=== PATIENT | female | born 1940 | race Native Hawaiian/Other Pacific Islander ===

== ENCOUNTER 2017-02-05 15:50 | Inpatient (IN) | payer MEDICARE, OTHER ==
[2017-02-05] MEDS ORDERED: Sodium Chloride 0.9% 1,000 ML IV ONE (16:54)
[2017-02-05] MEDS ORDERED: Sodium Chloride 0.9% 1,000 ML ONE (17:14)
[2017-02-05 17:25] LABS: CHLORIDE 88 mmol/L (98-107); POTASSIUM 3.5 mmol/L (3.6-5.2); SODIUM 127 mmol/L (132-148)
[2017-02-05 17:27] LABS: ALB/GLOB RATIO 1.3 (1.0-2.1); AST/SGOT 32 U/L (14-36); BILIRUBIN,TOTAL 0.8 mg/dL (0.2-1.3); CARBON DIOXIDE 21 mmol/L (22-30); GFR AFRICAN-AMERICAN > 60; TOTAL PROTEIN 7.9 g/dL (6.3-8.3)
[2017-02-05 17:28] LABS: ALKALINE PHOSPHATASE 65 U/L (38-126); ALT/SGPT 36 U/L (9-52); BLOOD UREA NITROGEN 9 mg/dL (7-17); CALCIUM 8.8 mg/dl (8.6-10.4); GLUCOSE,RANDOM 194 mg/dL (65-105)
[2017-02-05 17:33] LABS: BASO % 0.1 % (0.0-2.0); EOS # 0.2 K/uL (0.0-0.7); EOS % 1.9 % (0.0-4.0); HEMATOCRIT 28.5 % (34.0-47.0); LYMPH # 0.6 K/uL (1.0-4.3); LYMPH % 6.2 % (20.0-40.0); MEAN CELL VOLUME 73.8 fL (81.0-99.0); MEAN CORPUSCULAR HEMOGLOBIN 24.1 pg (27.0-31.0); MEAN CORPUSCULAR HGB CONC 32.6 g/dL (33.0-37.0); MONO # 0.1 K/uL (0.0-0.8); MONO % 1.2 % (0.0-10.0); NRBC % 0.8 % (0.0-2.0); RED CELL DISTRIBUTION WIDTH 28.1 % (11.5-14.5)
[2017-02-05 17:44] LABS: RBC URINE 1 /hpf (0-3); URINE BILIRUBIN NEGATIVE (NEGATIVE); URINE BLOOD NEGATIVE (NEGATIVE); URINE COLOR Yellow (YELLOW); URINE GLUCOSE (UA) 3+ mg/dL (Normal); URINE KETONE NEGATIVE (NEGATIVE); URINE LEUKOCYTE ESTERASE NEG Leu/uL (Negative); URINE PROTEIN NEGATIVE (NEGATIVE); URINE UROBILINOGEN NORMAL mg/dL (0.2-1.0); WBC URINE 1 /hpf (0-5)
[2017-02-05 17:47] LABS: PLATELET COUNT 913 K/uL (130-400)
--- NOTE | 2017-02-05 17:53 | C.PDOC ---
History Of Present Illness 76 y/o female wit Hx of HTN and Thyroid disease brought to ED by daughter sent by Dr. Marie with complaints of epigastric, RUQ and LUQ pain radiating to back since Friday. Patient states pain was intermittent but has progressively became constant associated with nausea and vomiting today. Patient reports pain is worse when eating and she has decreased appetite, last bowel movement was 2 days ago secondary to patient not eating solid food. No other complaints at this time. Time Seen by Provider: 02/05/17 16:45 Chief Complaint (Nursing): Abdominal Pain History Per: Patient History/Exam Limitations: no limitations Onset/Duration Of Symptoms: Days Current Symptoms Are (Timing): Still Present Location Of Pain/Discomfort: RLQ, Epigastric, LUQ Radiation Of Pain To:: Back Past Medical History Reviewed: Historical Data, Nursing Documentation, Vital Signs Vital Signs: Last Vital Signs Temp 99.8 F H 02/05/17 22:32 Pulse 73 02/05/17 22:32 Resp 20 02/05/17 22:32 BP 136/53 L 02/05/17 22:32 Pulse Ox 97 02/05/17 22:32 - Medical History PMH: Gastritis, HTN, Hypercholesterolemia, Hyperthyroidism Surgical History: No Surg Hx Family History: States: No Known Family Hx - Social History Hx Alcohol Use: No Hx Substance Use: No - Immunization History Hx Tetanus Toxoid Vaccination: No Hx Influenza Vaccination: No Hx Pneumococcal Vaccination: No Review Of Systems Except As Marked, All Systems Reviewed And Found Negative. Constitutional: Negative for: Fever, Chills Gastrointestinal: Positive for: Nausea, Vomiting, Abdominal Pain. Negative for : Diarrhea, Constipation Genitourinary: Negative for: Dysuria, Hematuria Musculoskeletal: Positive for: Back Pain Skin: Negative for: Rash Neurological: Negative for: Weakness, Numbness Physical Exam - Physical Exam Appears: Non-toxic, Other (Uncomfortable) Skin: Normal Color, Warm, Dry, No Rash Head: Atraumatic, Normacephalic Oral Mucosa: Moist Neck: Normal ROM, Supple Chest: Symmetrical Cardiovascular: Rhythm Regular, No Murmur Respiratory: No Rales, Rhonchi (left base), No Wheezing Gastrointestinal/Abdominal: Bowel Sounds (Quiet diffusely), Soft, Tenderness ( LUQ and epigastric), Distention, Guarding Back: No CVA Tenderness, No Paraspinal Tenderness Extremity: Normal ROM, No Pedal Edema Neurological/Psych: Oriented x3 ED Course And Treatment - Laboratory Results Result Diagrams: 02/05/17 17:11 02/05/17 17:11 Lab Interpretation: Abnormal (Mild anemia, Na 127, Cl 88, K 3.5, HCO3 21, Lipase 22) O2 Sat by Pulse Oximetry: 99 (RA) Pulse Ox Interpretation: Normal - Other Rad Obstructive series X-Ray: Interpreted by Me Interpretation: Increased stool volume, No evidence of obstruction or free air, CXR unremarkable. - CT Scan/US CT Abdomen and Pelvis With Intravenous Contrast Other Rad Studies (CT/US): Read By Radiologist, Radiology Report Reviewed CT/US Interpretation: FINDINGS: Lower thorax: Subsegmental atelectasis is noted at the right lung base. Contrast air level noted. within the distal and midesophagus suggests gastroesophageal reflux. There is a small hiatal hernia. 2. Liver cysts. 3. Subsegmental atelectasis noted at the right lung base. 4. Air-contrast level within the distal esophagus suggest gastroesophageal reflux disease. There is a. small hiatal hernia. ABDOMEN: Liver: As the 9 mm cyst beneath the liver capsule anteriorly and inferiorly. There is a 9 mm cyst. beneath the liver capsule posteriorly and inferiorly. Gallbladder and bile ducts: Unremarkable. No calcified stones. No ductal dilation. Pancreas: Unremarkable. No mass. No ductal dilation. Spleen: Unremarkable. No splenomegaly. Adrenals: The hazy inflammatory changes are noted within the suprarenal fat bilaterally appearing to. be centered on the adrenal glands. Kidneys and ureters: Unremarkable. No solid mass. No hydronephrosis. Stomach and bowel: Unremarkable. No obstruction. No mucosal thickening. Appendix: No findings to suggest acute appendicitis. PELVIS: Bladder: Unremarkable. No mass. Reproductive: Unremarkable as visualized. ABDOMEN and PELVIS: Intraperitoneal space: Unremarkable. No free air. No significant fluid collection. Bones/joints: There is a levoscoliosis of the lumbar spine with moderately advanced secondary. degenerative changes. Multilevel foraminal stenosis is noted in the upper and mid lumbar spine. No. acute fracture. No dislocation. Soft tissues: Unremarkable. Vasculature: Unremarkable. No abdominal aortic aneurysm. Lymph nodes: Unremarkable. No enlarged lymph nodes. IMPRESSION: 1. Inflammatory changes are noted surrounding the adrenal glands bilaterally suggest bilateral. adrenalitis. This can be infectious or autoimmune. Inflammatory changes related to pancreatitis can. occasionally extend into the suprarenal space. Clinical correlation suggested. - Physician Consult Information Time Consulting Physician Contacted: 21:45 Physician Contacted: Víctor Marie Outcome Of Conversation: Patient to be kept on observation for evaluation of adrenal inflammation. Disposition - Disposition Disposition: HOSPITALIZED Disposition Time: 21:46 Condition: STABLE - POA Present On Arrival: None - Clinical Impression Clinical Impression: Adrenalitis - Scribe Statement The provider has reviewed the documentation as recorded by the Venita Weiss All medical record entries made by the Venita were at my direction and personally dictated by me. I have reviewed the chart and agree that the record accurately reflects my personal performance of the history, physical exam, medical decision making, and the department course for this patient. I have also personally directed, reviewed, and agree with the discharge instructions and disposition.
[2017-02-05] MEDS ORDERED: Iohexol 240 (50 ml) PO ONE (18:19)
--- NOTE | 2017-02-05 18:35 | RAD ---
PROCEDURE: Radiographs of the chest and abdomen (obstructive series) HISTORY: Abdominal pain. COMPARISON: No prior. TECHNIQUE: AP radiograph of the chest, with upright and supine radiographs of the abdomen. FINDINGS: CHEST: Lungs: Clear. Cardiovascular: Cardiomegaly. No evidence of acute, significant cardiovascular disease. Pleura: No pleural fluid. No pneumothorax. Other findings: None. ABDOMEN AND PELVIS: Bowel: Constipation without fecal impaction or obstruction. Free air: None. Bones: Scoliosis, secondary degenerative change at multiple levels. Other findings: None. IMPRESSION: No acute findings related to/accounting for the clinical presentation.
[2017-02-05] MEDS ORDERED: Iohexol 240 (50 ml) ONE (18:56)
[2017-02-05] MEDS ORDERED: Iohexol 350mg/ml 100 ML ONE (19:07)
--- NOTE | 2017-02-05 21:22 | CT ---
EXAM: CT Abdomen and Pelvis With Intravenous Contrast EXAM DATE/TIME: Exam ordered 02/05/2017 6:19 PM CLINICAL HISTORY: 76 years old, female; Pain; Abdominal pain; Generalized TECHNIQUE: Axial computed tomography images of the abdomen and pelvis with intravenous contrast. All CT scans at this facility use one or more dose reduction techniques, viz.: automated exposure control; ma/kV adjustment per patient size (including targeted exams where dose is matched to indication; i.e. head); or iterative reconstruction technique. Coronal and sagittal reformatted images were created and reviewed. CONTRAST: 100 mL of omnipaque 350 administered intravenously. COMPARISON: CT - ABD PELVIS PO IV CONTRAST 11/29/2015 4:02:05 PM FINDINGS: Lower thorax: Subsegmental atelectasis is noted at the right lung base. Contrast air level noted within the distal and midesophagus suggests gastroesophageal reflux. There is a small hiatal hernia. ABDOMEN: Liver: As the 9 mm cyst beneath the liver capsule anteriorly and inferiorly. There is a 9 mm cyst beneath the liver capsule posteriorly and inferiorly. Gallbladder and bile ducts: Unremarkable. No calcified stones. No ductal dilation. Pancreas: Unremarkable. No mass. No ductal dilation. Spleen: Unremarkable. No splenomegaly. Adrenals: The hazy inflammatory changes are noted within the suprarenal fat bilaterally appearing to be centered on the adrenal glands. Kidneys and ureters: Unremarkable. No solid mass. No hydronephrosis. Stomach and bowel: Unremarkable. No obstruction. No mucosal thickening. Appendix: No findings to suggest acute appendicitis. PELVIS: Bladder: Unremarkable. No mass. Reproductive: Unremarkable as visualized. ABDOMEN and PELVIS: Intraperitoneal space: Unremarkable. No free air. No significant fluid collection. Bones/joints: There is a levoscoliosis of the lumbar spine with moderately advanced secondary degenerative changes. Multilevel foraminal stenosis is noted in the upper and mid lumbar spine. No acute fracture. No dislocation. Soft tissues: Unremarkable. Vasculature: Unremarkable. No abdominal aortic aneurysm. Lymph nodes: Unremarkable. No enlarged lymph nodes. IMPRESSION: 1. Inflammatory changes are noted surrounding the adrenal glands bilaterally suggest bilateral adrenalitis. This can be infectious or autoimmune. Inflammatory changes related to pancreatitis can occasionally extend into the suprarenal space. Clinical correlation suggested. 2. Liver cysts. 3. Subsegmental atelectasis noted at the right lung base. 4. Air-contrast level within the distal esophagus suggest gastroesophageal reflux disease. There is a small hiatal hernia.
[2017-02-05] MEDS: Potassium Chloride 20 MEQ in Dextrose 5%/0.9% NS 1,000 ML IV SCH (22:44)
[2017-02-05 23:18] LABS: EOSINOPHIL 2 % (0-4); LARGE PLATELETS PRESENT; NEUTROPHIL 82 % (50-75); SMUDGE CELLS PRESENT; TOTAL CELLS COUNTED 100
--- NOTE | 2017-02-06 00:48 | CON ---
ENDOCRINOLOGY CONSULT DATE: HISTORY OF PRESENT ILLNESS: This is a 76-year-old female with known history of hypertension and dyslipidemia, admitted here with diffuse upper abdominal pain and supervening nausea, dyspepsia, and vomiting and is now being referred for endocrine evaluation for possible "adrenal inflammation" seen by a CAT scan of the abdomen and pelvis undertaken tonight. PAST MEDICAL HISTORY: History of hypertension, dyslipidemia, and history of some kind of thyroid disorder. MEDICATIONS: Currently on no medications at this time. FAMILY HISTORY: Positive for hypertension and heart disease. No known endocrinopathy. SOCIAL HISTORY: The patient has supportive family. No known substance use. REVIEW OF SYSTEMS: As mentioned above. Admits to generalized body weakness with increasing easy fatigability and tiredness with hypersomnolence. No chest pain, but the patient admits to progressive shortness of breath especially on exertion. Her oral intake is variable with nausea, dyspepsia, and diffuse upper abdominal pain radiating to the flank area. No alteration of bowel and urinary pattern. PHYSICAL EXAMINATION: GENERAL: This is an average-built female in no apparent distress. VITAL SIGNS: Blood pressure 140/80, pulse of 100 beats per minute and regular, temperature 98, and respirations 20. Height 5 feet 2 inches and weight is 140 pounds. HEENT: Head is normocephalic. Eyes; anicteric with pale conjunctivae. Funduscopy is not possible at this time. Ears, nose and throat otherwise normal. NECK: Supple. Thyroid gland is normal in size. No carotid bruits or cervical adenopathy. CARDIOPULMONARY: Some adynamic precordium. S1 and S2 is rapid and regular. LUNGS: Scattered rhonchi. ABDOMEN: Flat and soft with positive bowel sounds. EXTREMITIES: No peripheral edema. Pulses are +2 bilaterally. LABORATORY DATA: Her chemistry showed BUN of 9, sodium 127, potassium of 3.5, chloride 88, CO2 21, glucose 194, and creatinine 0.5. ASSESSMENT: This is a 76-year-old female with sudden onset of diffuse abdominal pain and supervening nausea, dyspepsia, and vomiting, now being referred for possible "adrenal inflammation" noted by CAT scan of the abdomen and pelvis as interpreted tonight by the radiologist. Her electrolyte abnormalities are more consistent with dehydration from the recent nausea, dyspepsia, and vomiting episodes as noted. We typically would except moderate hyperkalemia, which hyponatremia in the presence of adrenal insufficiency or hypoadrenalism. However, if it is an acute episode of adrenal insufficiency, we would sometimes present with the aforementioned biochemical indices. She remains hemodynamically stable with no blood pressure stability as noted. The CAT scan of the abdomen and pelvis has been reviewed in detail as noted. PLAN: Plan of management, we will obtain baseline serum cortisol and ACTH level together with the T4 and TSH level for this morning's blood work as ordered. We will hold off empirical IV steroid therapy considering that she is actually hemodynamically stable and this would defeat the purpose of further testing if indicated. We will do an ACTH stimulation test as clinically and biochemically indicated with the subsequent testing to be undertaken today early this morning as ordered. We will continue the IV hydration, potassium supplementation as ordered and given. We will follow. Marely Raymundo MD
[2017-02-06] MEDS: Potassium Chloride 20 MEQ in Dextrose 5%/0.9% NS 1,000 ML IV SCH ×3 (06:35→22:29)
[2017-02-06 06:39] LABS: BASO # 0.1 K/uL (0.0-0.2); EOS # 0.1 K/uL (0.0-0.7); EOS % 0.9 % (0.0-4.0); MEAN CORPUSCULAR HEMOGLOBIN 24.7 pg (27.0-31.0)
[2017-02-06 06:53] LABS: ALB/GLOB RATIO 1.3 (1.0-2.1); ALKALINE PHOSPHATASE 50 U/L (38-126); ALT/SGPT 33 U/L (9-52); AMYLASE 42 U/L (30-110); AST/SGOT 26 U/L (14-36); BILIRUBIN,TOTAL 0.7 mg/dL (0.2-1.3); BLOOD UREA NITROGEN 5 mg/dL (7-17); CALCIUM 8.5 mg/dl (8.6-10.4); CARBON DIOXIDE 24 mmol/L (22-30); CHLORIDE 95 mmol/L (98-107); GFR AFRICAN-AMERICAN > 60; GLUCOSE,RANDOM 136 mg/dL (65-105); POTASSIUM 3.8 mmol/L (3.6-5.2); SODIUM 129 mmol/L (132-148); TOTAL PROTEIN 6.5 g/dL (6.3-8.3)
[2017-02-06 07:04] LABS: BASO % 0.9 % (0.0-2.0); HEMATOCRIT 25.5 % (34.0-47.0); LYMPH % 36.5 % (20.0-40.0); MEAN CELL VOLUME 73.2 fL (81.0-99.0); MEAN CORPUSCULAR HGB CONC 33.8 g/dL (33.0-37.0); MEAN PLATELET VOLUME 8.4 fL (7.2-11.7); MONO # 0.1 K/uL (0.0-0.8); MONO % 0.9 % (0.0-10.0); NRBC % 0.7 % (0.0-2.0); PLATELET COUNT 723 K/uL (130-400); RED CELL DISTRIBUTION WIDTH 28.2 % (11.5-14.5); WHITE BLOOD COUNT 8.3 K/uL (4.8-10.8)
[2017-02-06 07:10] LABS: T4 7.22 ug/dL (5.5-11.0)
[2017-02-06 07:23] LABS: THYROID STIMULATING HORMONE 1.03 mIU/L (0.46-4.68)
[2017-02-06 07:46] LABS: CORTISOL AM 19.1 ug/dL (4.46-22.7)
[2017-02-06 08:44] LABS: EOSINOPHIL 3 % (0-4); MYELOCYTE 2 % (0-0); NEUTROPHIL 73 % (50-75); TOTAL CELLS COUNTED 100
[2017-02-06 08:46] LABS: LARGE PLATELETS PRESENT
[2017-02-06 08:47] LABS: GIANT PLATELETS PRESENT
[2017-02-06] MEDS ORDERED: Morphine 4 MG/ML VIAL IV ONE (09:30)
--- NOTE | 2017-02-06 09:37 | CP.PCM.HP ---
History of Present Illness - History of Present Illness History of Present Illness: CC: Vomiting 76 y/o male with Acid Reflux disease, Myelo-proliferative dis and HTN. Patient has epigastric pain that goes to both mid-back. Pain is sharp but mostly on back x 5 days. Patient was worse yesterday and vomited 2X. Patient state on last vomited, she became diaphoretic and felt very cold. Pt referred to ER - CT (+) bilateral inflamed adrenals Present on Admission - Present on Admission Any Indicators Present on Admission: Yes History of DVT/PE: No History of Uncontrolled Diabetes: No Urinary Catheter: No Decubitus Ulcer Present: No Review of Systems - Review of Systems Systems not reviewed;Unavailable: Acuity of Condition - Constitutional Constitutional: Fatigue, Night Sweats. absent: Headache, Increased Appetite, Malaise - EENT Eyes: absent: Blurred Vision, Loss of Peripheral Vision, Requires Corrective Lenses, Sees Flashes Ears: Dizziness. absent: Ear Pain, Tinnitus, Abnormal Hearing, Disequilibrium Nose/Mouth/Throat: absent: Nasal Congestion, Post Nasal Drip, Bleeding Gums, Dysphagia, Hoarsness, Mouth Pain - Cardiovascular Cardiovascular: absent: Chest Pain, Leg Edema, Orthopnea, Palpitations, Pedal Edema, Syncope - Respiratory Respiratory: absent: Hemoptysis, Snoring, Chest Congestion - Gastrointestinal Gastrointestinal: Dysphagia, Heartburn, Nausea, Vomiting. absent: Belching, Bloating, Coffee Ground Emesis, Dyspepsia, Hematochezia, Melena - Genitourinary Genitourinary: absent: Difficulty Urinating, Dysuria, Urinary Hesitance, Freq UTI - Musculoskeletal Musculoskeletal: Back Pain. absent: Abnormal Gait, Atrophy, Joint Swelling, Myalgias, Neck Pain, Numbness - Integumentary Integumentary: absent: Dry Skin, Lesions, Rash - Neurological Neurological: Dizziness. absent: Behavioral Changes, Radicular Pain, Syncope, Vertigo Past Patient History - Infectious Disease Hx of Infectious Diseases: None - Past Medical History & Family History Past Medical History?: Yes - Past Social History Smoking Status: Never Smoked - CARDIAC Hx Cardiac Disorders: Yes Hx Hypercholesterolemia: Yes Hx Hypertension: Yes - PULMONARY Hx Respiratory Disorders: No - NEUROLOGICAL Hx Neurological Disorder: No - HEENT Hx HEENT Problems: No - RENAL Hx Chronic Kidney Disease: No - ENDOCRINE/METABOLIC Hx Endocrine Disorders: Yes Hx Hyperthyroidism: Yes - HEMATOLOGICAL/ONCOLOGICAL Hx Blood Disorders: No - INTEGUMENTARY Hx Dermatological Problems: No - MUSCULOSKELETAL/RHEUMATOLOGICAL Hx Musculoskeletal Disorders: No Hx Falls: Yes - GASTROINTESTINAL Hx Gastrointestinal Disorders: Yes Hx Gastritis: Yes - GENITOURINARY/GYNECOLOGICAL Hx Genitourinary Disorders: No - PSYCHIATRIC Hx Psychophysiologic Disorder: No Hx Substance Use: No - SURGICAL HISTORY Hx Surgeries: No - ANESTHESIA Hx Anesthesia: No Meds Allergies/Adverse Reactions: Allergies Allergy/AdvReac Type Severity Reaction Status Date / Time No Known Allergies Allergy Verified 02/05/17 16:11 Physical Exam - Constitutional Appears: No Acute Distress - Head Exam Head Exam: ATRAUMATIC - Eye Exam Eye Exam: Normal appearance. absent: Scleral icterus ((+) pale) - ENT Exam ENT Exam: Mucous Membranes Moist - Neck Exam Neck exam: Negative for: Full Rom, Lymphadenopathy, Thyromegaly - Respiratory Exam Respiratory Exam: Decreased Breath Sounds, Clear to Auscultation Bilateral. absent: Rales, Rhonchi, Wheezes - Cardiovascular Exam Cardiovascular Exam: REGULAR RHYTHM, +S1, +S2, Systolic Murmur. absent: Gallop , JVD - GI/Abdominal Exam GI & Abdominal Exam: Soft, Tenderness (Epi-gastric enderness). absent: Guarding , Hernia - Extremities Exam Extremities exam: Positive for: full ROM, normal capillary refill, pedal pulses present. Negative for: calf tenderness, joint swelling, pedal edema, tenderness Results - Vital Signs Recent Vital Signs: Last Vital Signs Temp 99.3 F 02/06/17 07:27 Pulse 79 02/06/17 07:27 Resp 20 02/06/17 07:27 BP 125/62 02/06/17 07:27 Pulse Ox 96 02/06/17 07:27 - Labs Result Diagrams: 02/06/17 06:23 02/06/17 06:23 Labs: Laboratory Results - last 24 hr 02/05/17 02/05/17 02/05/17 17:11 17:11 17:34 WBC 10.0 RBC 3.87 Hgb 9.3 L Hct 28.5 L MCV 73.8 L MCH 24.1 L MCHC 32.6 L RDW 28.1 H Plt Count 913 H* MPV 9.0 Neut % (Auto) 90.6 H Lymph % (Auto) 6.2 L [place] % (Auto) 1.2 Eos % (Auto) 1.9 Baso % (Auto) 0.1 Neut # 9.1 H Lymph # 0.6 L [place] # 0.1 Eos # 0.2 Baso # 0.0 Neutrophils % (Manual) 82 H Band Neutrophils % 6 H Lymphocytes % (Manual) 7 L Monocytes % (Manual) 3 Eosinophils % (Manual) 2 Myelocytes % Hypersegmented Polys Present Smudge Cells Present Toxic Granulation Present Platelet Estimate Increased H Large Platelets Present Giant Platelets Hypochromasia (manual) Slight Poikilocytosis (manual Slight Basophilic Stippling Anisocytosis (manual) Slight Target Cells Schistocytes Sodium 127 L Potassium 3.5 L Chloride 88 L Carbon Dioxide 21 L Anion Gap 22 H BUN 9 Creatinine 0.5 L Est GFR ( Amer) > 60 Est GFR (Non-Af Amer) > 60 Random Glucose 194 H Calcium 8.8 Total Bilirubin 0.8 AST 32 ALT 36 Alkaline Phosphatase 65 Total Protein 7.9 Albumin 4.5 Globulin 3.4 Albumin/Globulin Ratio 1.3 Amylase Lipase 22 L Thyroxine (T4) TSH 3rd Generation Cortisol AM Sample Urine Color Yellow Urine Clarity Clear Urine pH 5.0 Ur Specific [place] 1.015 Urine Protein Negative Urine Glucose (UA) 3+ H Urine Ketones Negative Urine Blood Negative Urine Nitrate Negative Urine Bilirubin Negative Urine Urobilinogen Normal Ur Leukocyte Esterase Neg Urine WBC (Auto) 1 Urine RBC (Auto) 1 Ur Squamous Epith Cells < 1 02/06/17 02/06/17 06:23 06:23 WBC 8.3 RBC 3.48 L Hgb 8.6 L Hct 25.5 L MCV 73.2 L MCH 24.7 L MCHC 33.8 RDW 28.2 H Plt Count 723 H D MPV 8.4 Neut % (Auto) 60.8 Lymph % (Auto) 36.5 [place] % (Auto) 0.9 Eos % (Auto) 0.9 Baso % (Auto) 0.9 Neut # 5.1 Lymph # 3.0 [place] # 0.1 Eos # 0.1 Baso # 0.1 Neutrophils % (Manual) 73 Band Neutrophils % 12 H* Lymphocytes % (Manual) 8 L Monocytes % (Manual) 2 Eosinophils % (Manual) 3 Myelocytes % 2 H Hypersegmented Polys Smudge Cells Toxic Granulation Platelet Estimate Increased H Large Platelets Present Giant Platelets Present Hypochromasia (manual) Slight Poikilocytosis (manual Moderate Basophilic Stippling Slight Anisocytosis (manual) Marked Target Cells Slight Schistocytes Moderate Sodium 129 L Potassium 3.8 Chloride 95 L Carbon Dioxide 24 Anion Gap 14 BUN 5 L Creatinine 0.4 L Est GFR ( Amer) > 60 Est GFR (Non-Af Amer) > 60 Random Glucose 136 H Calcium 8.5 L Total Bilirubin 0.7 AST 26 ALT 33 Alkaline Phosphatase 50 Total Protein 6.5 Albumin 3.6 Globulin 2.8 Albumin/Globulin Ratio 1.3 Amylase 42 Lipase 18 L Thyroxine (T4) 7.22 TSH 3rd Generation 1.03 Cortisol AM Sample 19.1 Urine Color Urine Clarity Urine pH Ur Specific [place] Urine Protein Urine Glucose (UA) Urine Ketones Urine Blood Urine Nitrate Urine Bilirubin Urine Urobilinogen Ur Leukocyte Esterase Urine WBC (Auto) Urine RBC (Auto) Ur Squamous Epith Cells - EKG Data EKG Interpreted by: Myself EKG shows normal: Sinus rhythm Rate: Normal Assessment & Plan - Assessment and Plan (Free Text) Assessment: Bilateral adrenal inflammation ? infectious vs Autoimmune Epig pain w/ vomiting; constipation Myeloproliferative disease HTN Inc morphine to 4 mg c/o state 2 mg does not relieve her pain Supportive care; Reglan q 8 for today All meds IV c/o vomiting
[2017-02-06] MEDS: Morphine 4 MG/ML VIAL IV PRN (09:46)
[2017-02-06] MEDS: Nitroglycerin 2% Ointment Foilpak UD TOP SCH ×2 (09:50→19:57)
[2017-02-06] MEDS ORDERED: Home Med 1 UNIT (Esomeprazole Magnesium [Nexium] 40 MG) PO SCH (10:00)
--- NOTE | 2017-02-06 14:34 | PN ---
ENDOCRINOLOGY FOLLOWUP NOTE LOCATION: Room #357. SUBJECTIVE: This is a 76-year-old female presenting here with diffuse abdominal pain and supervening nausea, dyspepsia and episodic vomiting episode and underwent a CAT scan of the abdomen and pelvis showing the possibility of acute adrenalitis. A subsequent endocrine evaluation has been requested at this time. LABORATORY DATA: Her latest chemistry showed a BUN of 5, sodium 129, potassium 3.8, chloride 95, CO2 of 24, glucose 136 and creatinine 0.4. Her thyroid study showed a TSH of 1.03 and a cortisol level of 19.1 excluding the possibility of hypoadrenalism or sudden adrenal insufficiency at this time. We are awaiting the reports of the ACTH level as ordered. We will obtain serum chemistries at this time and supplement accordingly as needed and also, continue the IV hydration as ordered. We will follow with you. Marely Raymundo MD
--- NOTE | 2017-02-06 17:31 | CP.PCM.CON ---
History of Present Illness - History of Present Illness History of Present Illness: 76 yo woman admitted with abdominal pain, vomiting for the past 2-3 days, currently being worked up for finding of adrenal inflammation on Cat scan. Heme consult called for anemia, thrombocytosis. Patient was seen in bed, c/o pain Rt. upper back, with SOB, Denies cough or phlegm. Patient c/o feeling of something sticking in her chest, denies palpitations. Also c/o constipation for the past several days. Past Patient History - Infectious Disease Hx of Infectious Diseases: None - Past Medical History & Family History Past Medical History?: Yes - Past Social History Smoking Status: Never Smoked - CARDIAC Hx Cardiac Disorders: Yes Hx Hypercholesterolemia: Yes Hx Hypertension: Yes - PULMONARY Hx Respiratory Disorders: No - NEUROLOGICAL Hx Neurological Disorder: No - HEENT Hx HEENT Problems: No - RENAL Hx Chronic Kidney Disease: No - ENDOCRINE/METABOLIC Hx Endocrine Disorders: Yes Hx Hyperthyroidism: Yes - HEMATOLOGICAL/ONCOLOGICAL Hx Blood Disorders: No - INTEGUMENTARY Hx Dermatological Problems: No - MUSCULOSKELETAL/RHEUMATOLOGICAL Hx Musculoskeletal Disorders: No Hx Falls: Yes - GASTROINTESTINAL Hx Gastrointestinal Disorders: Yes Hx Gastritis: Yes - GENITOURINARY/GYNECOLOGICAL Hx Genitourinary Disorders: No - PSYCHIATRIC Hx Psychophysiologic Disorder: No Hx Substance Use: No - SURGICAL HISTORY Hx Surgeries: No - ANESTHESIA Hx Anesthesia: No Meds Allergies/Adverse Reactions: Allergies Allergy/AdvReac Type Severity Reaction Status Date / Time No Known Allergies Allergy Verified 02/05/17 16:11 - Medications Medications: Current Medications Heparin Sodium (Porcine) (Heparin) 5,000 units SC Q12 [facility] Last Admin: 02/06/17 10:34 Dose: 5,000 units Potassium Chloride 20 meq/ (Dextrose/Sodium Chloride) 1,010 mls @ 125 mls/hr IV .Q8H5M [facility] Last Admin: 02/06/17 14:59 Dose: 125 mls/hr Lorazepam (Ativan) 0.5 mg IM HS [facility] Magnesium Hydroxide (Milk Of Magnesia) 30 ml PO ONCE ONE Stop: 02/06/17 17:23 Metoclopramide HCl (Reglan) 10 mg IVP Q8H [facility] Last Admin: 02/06/17 09:52 Dose: 10 mg Morphine Sulfate (Morphine) 4 mg IV Q6 PRN PRN Reason: MODERATE PAIN, 4-7 Last Admin: 02/06/17 09:46 Dose: 4 mg Nitroglycerin (Nitro-Bid 2% Oint) 1 ea TOP Q8H [facility] Last Admin: 02/06/17 09:50 Dose: 1 ea Pantoprazole Sodium (Protonix Inj) 40 mg IVP DAILY [facility] Last Admin: 02/06/17 09:53 Dose: 40 mg Pneumococcal Polyvalent Vaccine (Pneumovax 23 Vaccine) 0.5 ml IM .ONCE ONE Stop: 02/08/17 10:01 Sodium Phosphate (Fleet Enema) 135 ml MS ONCE ONE Stop: 02/06/17 17:23 Results - Vital Signs Recent Vital Signs: Last Vital Signs Temp 98.6 F 02/06/17 15:00 Pulse 93 H 02/06/17 15:00 Resp 20 02/06/17 15:00 BP 141/69 02/06/17 15:00 Pulse Ox 95 02/06/17 15:00 - Labs Result Diagrams: 02/07/17 06:24 02/07/17 06:24 Labs: Laboratory Results - last 24 hr 02/05/17 02/05/17 02/05/17 17:11 17:11 17:34 WBC 10.0 RBC 3.87 Hgb 9.3 L Hct 28.5 L MCV 73.8 L MCH 24.1 L MCHC 32.6 L RDW 28.1 H Plt Count 913 H* MPV 9.0 Neut % (Auto) 90.6 H Lymph % (Auto) 6.2 L [place] % (Auto) 1.2 Eos % (Auto) 1.9 Baso % (Auto) 0.1 Neut # 9.1 H Lymph # 0.6 L [place] # 0.1 Eos # 0.2 Baso # 0.0 Neutrophils % (Manual) 82 H Band Neutrophils % 6 H Lymphocytes % (Manual) 7 L Monocytes % (Manual) 3 Eosinophils % (Manual) 2 Myelocytes % Hypersegmented Polys Present Smudge Cells Present Toxic Granulation Present Platelet Estimate Increased H Large Platelets Present Giant Platelets Hypochromasia (manual) Slight Poikilocytosis (manual Slight Basophilic Stippling Anisocytosis (manual) Slight Target Cells Schistocytes Sodium 127 L Potassium 3.5 L Chloride 88 L Carbon Dioxide 21 L Anion Gap 22 H BUN 9 Creatinine 0.5 L Est GFR ( Amer) > 60 Est GFR (Non-Af Amer) > 60 Random Glucose 194 H Calcium 8.8 Total Bilirubin 0.8 AST 32 ALT 36 Alkaline Phosphatase 65 Total Protein 7.9 Albumin 4.5 Globulin 3.4 Albumin/Globulin Ratio 1.3 Amylase Lipase 22 L Thyroxine (T4) TSH 3rd Generation Cortisol AM Sample Urine Color Yellow Urine Clarity Clear Urine pH 5.0 Ur Specific [place] 1.015 Urine Protein Negative Urine Glucose (UA) 3+ H Urine Ketones Negative Urine Blood Negative Urine Nitrate Negative Urine Bilirubin Negative Urine Urobilinogen Normal Ur Leukocyte Esterase Neg Urine WBC (Auto) 1 Urine RBC (Auto) 1 Ur Squamous Epith Cells < 1 02/06/17 02/06/17 06:23 06:23 WBC 8.3 RBC 3.48 L Hgb 8.6 L Hct 25.5 L MCV 73.2 L MCH 24.7 L MCHC 33.8 RDW 28.2 H Plt Count 723 H D MPV 8.4 Neut % (Auto) 60.8 Lymph % (Auto) 36.5 [place] % (Auto) 0.9 Eos % (Auto) 0.9 Baso % (Auto) 0.9 Neut # 5.1 Lymph # 3.0 [place] # 0.1 Eos # 0.1 Baso # 0.1 Neutrophils % (Manual) 73 Band Neutrophils % 12 H* Lymphocytes % (Manual) 8 L Monocytes % (Manual) 2 Eosinophils % (Manual) 3 Myelocytes % 2 H Hypersegmented Polys Smudge Cells Toxic Granulation Platelet Estimate Increased H Large Platelets Present Giant Platelets Present Hypochromasia (manual) Slight Poikilocytosis (manual Moderate Basophilic Stippling Slight Anisocytosis (manual) Marked Target Cells Slight Schistocytes Moderate Sodium 129 L Potassium 3.8 Chloride 95 L Carbon Dioxide 24 Anion Gap 14 BUN 5 L Creatinine 0.4 L Est GFR ( Amer) > 60 Est GFR (Non-Af Amer) > 60 Random Glucose 136 H Calcium 8.5 L Total Bilirubin 0.7 AST 26 ALT 33 Alkaline Phosphatase 50 Total Protein 6.5 Albumin 3.6 Globulin 2.8 Albumin/Globulin Ratio 1.3 Amylase 42 Lipase 18 L Thyroxine (T4) 7.22 TSH 3rd Generation 1.03 Cortisol AM Sample 19.1 Urine Color Urine Clarity Urine pH Ur Specific [place] Urine Protein Urine Glucose (UA) Urine Ketones Urine Blood Urine Nitrate Urine Bilirubin Urine Urobilinogen Ur Leukocyte Esterase Urine WBC (Auto) Urine RBC (Auto) Ur Squamous Epith Cells Assessment & Plan (1) Anemia Assessment and Plan: 76 yo woman admitted for work up of abdominal pain, adrenal inflammation, found to have anemia, left shifted myeloid series, thrombocytosis, without any obvious bleeding, splenomegaly, patient when seen by the bedside, is SOB, with a RR of 22, HR of 100, O2 sat of 95% on 2L NC, AXRay showing dilated esophagus, unclear if she aspirated(patient with history of vomiting and severe constipation) or ?? r/o PE ( patient on heparin). Have ordered STAT CXRay and V/ Q scan, also d/w ICU attending. Discussed with patient regarding PRBC transfusion, she wants to discuss with daughter first. Have ordered Iron studies, B12 levels, SPEP, retics and LDH. Suspect that the left shift in the WBC series and the increased platelet count, is 'reactive', however will need to r/o myeloproliferative disorder, hold off on bone marrow biopsy for now until work up for the new onset SOB is complete. Above discussed with daughter Status: Acute
[2017-02-06] MEDS ORDERED: Magnesium Hydroxide Susp 30 ml UD PO ONE (17:45)
[2017-02-06] MEDS ORDERED: Lidocaine 2% PF (10 ml) Amp INFIL ONE (19:00)
--- NOTE | 2017-02-06 19:00 | NM ---
COMPARISON: Comparison is made to previous same-day chest x-ray TECHNIQUE: 8.8 mCi technetium 99-m Xe-133 Gas. Three point mCI technetium 99-m MAA administered intravenously. FINDINGS: VENTILATION COMPONENT: Homogeneous ventilation seen. Mild retention of the radiotracer noted at the lower lobes bilaterally PERFUSION COMPONENT: Multiple segmental and subsegmental mismatching perfusion defects are seen highly suspicious for pulmonary emboli. IMPRESSION: Highprobability ventilation perfusion scan for pulmonary embolism. The above findings were reported to the nurse taking care of the patient at [address] [place] [address] Mrs. Lee at 6:59 p.m. on 02/06/2017
--- NOTE | 2017-02-06 19:30 | CP.PCM.CON ---
History of Present Illness - History of Present Illness History of Present Illness: 76 y/o female wit Hx of HTN and Thyroid disease brought to ED by daughter sent by Dr. Marie with complaints of epigastric, RUQ and LUQ pain radiating to back since Friday. Patient states pain was intermittent but has progressively became constant associated with nausea and vomiting today. Patient reports pain is worse when eating and she has decreased appetite, last bowel movement was 2 days ago secondary to patient not eating solid food. id CONSULTED TO R/O SEPSIS iv RX IN PROGRESS WORK UP TO R/O pe - Medical History PMH: Gastritis, HTN, Hypercholesterolemia, Hyperthyroidism Surgical History: No Surg Hx Family History: States: No Known Family Hx Review of Systems - Constitutional Constitutional: As Per HPI - EENT Eyes: absent: As Per HPI, Blind Spots, Blurred Vision, Change in Vision, Decreased Night Vision, Diplopia, Discharge, Dry Eye, Exophthalmos, Floaters, Irritation, Itchy Eyes, Loss of Peripheral Vision, Pain, Photophobia, Requires Corrective Lenses, Sees Flashes, Spots in Vision, Tunnel Vision, Other Visual Disturbances, Loss of Vision, Other Ears: absent: As Per HPI, Decreased Hearing, Ear Discharge, Ear Pain, Tinnitus, Abnormal Hearing, Disequilibrium, Dizziness, Other Nose/Mouth/Throat: absent: As Per HPI, Epistaxis, Nasal Congestion, Nasal Discharge, Nasal Obstruction, Nasal Trauma, Nose Pain, Post Nasal Drip, Sinus Pain, Sinus Pressure, Bleeding Gums, Change in Voice, Dental Pain, Dry Mouth, Dysphagia, Halitosis, Hoarsness, Lip Swelling, Mouth Lesions, Mouth Pain, Odynophagia, Sore Throat, Throat Swelling, Tongue Swelling, Facial Pain, Neck Pain, Neck Mass, Other - Breasts Breasts: absent: As Per HPI, Change in Shape, Mass, Pain, Nipple Discharge, Nipple Inversion, Skin Changes, Swelling, Other - Cardiovascular Cardiovascular: As Per HPI - Respiratory Respiratory: As Per HPI - Gastrointestinal Gastrointestinal: As Per HPI - Genitourinary Genitourinary: absent: As Per HPI, Change in Urinary Stream, Difficulty Urinating, Dysuria, Flank Pain, Hematuria, Pyuria, Nocturia, Urinary Incontinence, Urinary Frequency, Urinary Hesitance, Urinary Urgency, Voiding Freq/Small Amts, Freq UTI, Hx Renal/Bladder Calculi, Hx /Renal Surgery, Bladder Distension, Other - Reproductive: Female Reproductive:Female: absent: As Per HPI, Amenorrhea, Amenorrhea/ Control, Currently Menstual, Cycle <21 Days, Cycle >35 Days, Cycle Variable, Menses 1-7 Days, Menses >/= 8 Days, Menses Variable, Cycle > 4 Weeks Between, No Menses for 6 Months, Heavy Menses, Light Menses, Normal Menses, Spotting Between Cycles , S/P Hysterectomy, Menopausal, Post Menopausal, Premenarche, Abnormal Vaginal Bleeding, Dysmenorrhea, Dyspareunia, Genital Lesions, Genital Pruritis, Pelvic Pain, Prolapse Symptoms, Sexual Dysfunction, Vaginal Discharge, Vaginal Dryness , Vaginal Odor, Vaginal Pruritis, Other - Menstruation Menstruation: absent: As Per HPI, Amenorrhea, Amenorrhea/ Control, Currently Menstual, Cycle <21 Days, Cycle >35 Days, Cycle Variable, Menses 1-7 Days, Menses >/= 8 Days, Menses Variable, Cycle > 4 Weeks Between, No Menses for 6 Months, Heavy Menses, Light Menses, Normal Menses, Spotting Between Cycles , S/P Hysterectomy, Menopausal, Post Menopausal, Premenarche, Abnormal Vaginal Bleeding, Dysmenorrhea, Other - Musculoskeletal Musculoskeletal: absent: As Per HPI, Abnormal Gait, Arthralgias, Atrophy, Back Pain, Deformity, Joint Swelling, Limited Range of Motion, Loss of Height, Muscle Cramps, Muscle Weakness, Myalgias, Neck Pain, Numbness, Radiating Pain into Limb, Stiffness, Tingling, Other - Integumentary Integumentary: absent: As Per HPI, Acne, Alopecia, Bleeding Lesions, Change in Hair, Change in Nails, Change in Pigmentation, Changing Lesions, Dry Skin, Erythema, Furuncle, Hirsutism, Lesions, New Lesions, Non-Healing Lesions, Photosensitivity, Pruritus, Rash, Skin Pain, Skin Ulcer, Sores, Striae, Swelling , Unusual Bruising, Wounds, Jaundice, Other - Neurological Neurological: absent: As Per HPI, Abnormal Gait, Abnormal Hearing, Abnormal Movements, Abnormal Speech, Behavioral Changes, Burning Sensations, Confusion, Convulsions, Disequilibrium, Dizziness, Numbness, Focal Weakness, Frequent Falls , Headaches, Lack of Coordination, Loss of Vision, Memory Loss, Paresthesias, Radicular Pain, Restless Legs, Sensory Deficit, Syncope, Tingling, Tremor, Vertigo, Weakness, Other Visual Disturbances, Other Past Patient History - Infectious Disease Hx of Infectious Diseases: None - Past Medical History & Family History Past Medical History?: Yes - Past Social History Smoking Status: Never Smoked - CARDIAC Hx Cardiac Disorders: Yes Hx Hypercholesterolemia: Yes Hx Hypertension: Yes - PULMONARY Hx Respiratory Disorders: No - NEUROLOGICAL Hx Neurological Disorder: No - HEENT Hx HEENT Problems: No - RENAL Hx Chronic Kidney Disease: No - ENDOCRINE/METABOLIC Hx Endocrine Disorders: Yes Hx Hyperthyroidism: Yes - HEMATOLOGICAL/ONCOLOGICAL Hx Blood Disorders: No - INTEGUMENTARY Hx Dermatological Problems: No - MUSCULOSKELETAL/RHEUMATOLOGICAL Hx Musculoskeletal Disorders: No Hx Falls: Yes - GASTROINTESTINAL Hx Gastrointestinal Disorders: Yes Hx Gastritis: Yes - GENITOURINARY/GYNECOLOGICAL Hx Genitourinary Disorders: No - PSYCHIATRIC Hx Psychophysiologic Disorder: No Hx Substance Use: No - SURGICAL HISTORY Hx Surgeries: No - ANESTHESIA Hx Anesthesia: No Meds Allergies/Adverse Reactions: Allergies Allergy/AdvReac Type Severity Reaction Status Date / Time No Known Allergies Allergy Verified 02/05/17 16:11 - Medications Medications: Current Medications Heparin Sodium (Porcine) (Heparin) 5,080 units IV ONCE ONE Stop: 02/06/17 19:31 Potassium Chloride 20 meq/ (Dextrose/Sodium Chloride) 1,010 mls @ 125 mls/hr IV .Q8H5M [facility] Last Admin: 02/06/17 14:59 Dose: 125 mls/hr Heparin Sodium/Sodium Chloride (Heparin 01202 Units/250ml 1/2 Normal Saline) 25 ,000 units in 250 mls @ 11.431 mls/hr IV .[id number] PRN; Protocol; 18 UNITS/KG/HR PRN Reason: PROTOCOL Lorazepam (Ativan) 0.5 mg IM HS [facility] Metoclopramide HCl (Reglan) 10 mg IVP Q8H [facility] Last Admin: 02/06/17 09:52 Dose: 10 mg Morphine Sulfate (Morphine) 4 mg IV Q6 PRN PRN Reason: MODERATE PAIN, 4-7 Last Admin: 02/06/17 09:46 Dose: 4 mg Nitroglycerin (Nitro-Bid 2% Oint) 1 ea TOP Q8H [facility] Last Admin: 02/06/17 09:50 Dose: 1 ea Pantoprazole Sodium (Protonix Inj) 40 mg IVP DAILY [facility] Last Admin: 02/06/17 09:53 Dose: 40 mg Pneumococcal Polyvalent Vaccine (Pneumovax 23 Vaccine) 0.5 ml IM .ONCE ONE Stop: 02/08/17 10:01 Physical Exam - Constitutional Appears: Non-toxic, In Acute Distress - Head Exam Head Exam: ATRAUMATIC, NORMAL INSPECTION, NORMOCEPHALIC - Eye Exam Eye Exam: EOMI, PERRL. absent: Scleral icterus - ENT Exam ENT Exam: Mucous Membranes Dry, Normal External Ear Exam - Neck Exam Neck exam: Negative for: Lymphadenopathy - Respiratory Exam Respiratory Exam: Decreased Breath Sounds, Clear to Auscultation Bilateral - Cardiovascular Exam Cardiovascular Exam: REGULAR RHYTHM, +S1, +S2 - GI/Abdominal Exam GI & Abdominal Exam: Diminished Bowel Sounds, Soft. absent: Tenderness - Rectal Exam Rectal Exam: Deferred - Exam Exam: NORMAL INSPECTION - Extremities Exam Extremities exam: Positive for: pedal pulses present. Negative for: calf tenderness, pedal edema, tenderness - Back Exam Back exam: absent: CVA tenderness (L), CVA tenderness (R) - Neurological Exam Neurological exam: Alert, CN II-XII Intact, Oriented x3, Reflexes Normal - Psychiatric Exam Psychiatric exam: Depressed Results - Vital Signs Recent Vital Signs: Last Vital Signs Temp 98.6 F 02/06/17 15:00 Pulse 93 H 02/06/17 15:00 Resp 20 02/06/17 15:00 BP 141/69 02/06/17 15:00 Pulse Ox 95 02/06/17 15:00 - Labs Result Diagrams: 02/07/17 06:24 02/07/17 06:24 Labs: Laboratory Results - last 24 hr 02/05/17 02/06/17 02/06/17 17:11 06:23 06:23 WBC 8.3 RBC 3.48 L Hgb 8.6 L Hct 25.5 L MCV 73.2 L MCH 24.7 L MCHC 33.8 RDW 28.2 H Plt Count 723 H D MPV 8.4 Neut % (Auto) 60.8 Lymph % (Auto) 36.5 [place] % (Auto) 0.9 Eos % (Auto) 0.9 Baso % (Auto) 0.9 Neut # 5.1 Lymph # 3.0 [place] # 0.1 Eos # 0.1 Baso # 0.1 Neutrophils % (Manual) 82 H 73 Band Neutrophils % 6 H 12 H* Lymphocytes % (Manual) 7 L 8 L Monocytes % (Manual) 3 2 Eosinophils % (Manual) 2 3 Myelocytes % 2 H Hypersegmented Polys Present Smudge Cells Present Toxic Granulation Present Platelet Estimate Increased H Increased H Large Platelets Present Present Giant Platelets Present Hypochromasia (manual) Slight Slight Poikilocytosis (manual Slight Moderate Basophilic Stippling Slight Anisocytosis (manual) Slight Marked Target Cells Slight Schistocytes Moderate Sodium 129 L Potassium 3.8 Chloride 95 L Carbon Dioxide 24 Anion Gap 14 BUN 5 L Creatinine 0.4 L Est GFR ( Amer) > 60 Est GFR (Non-Af Amer) > 60 Random Glucose 136 H Calcium 8.5 L Total Bilirubin 0.7 AST 26 ALT 33 Alkaline Phosphatase 50 Total Protein 6.5 Albumin 3.6 Globulin 2.8 Albumin/Globulin Ratio 1.3 Amylase 42 Lipase 18 L Thyroxine (T4) 7.22 TSH 3rd Generation 1.03 Cortisol AM Sample 19.1 Assessment & Plan (1) Pulmonary embolism Status: Acute (2) Anemia Status: Acute - Assessment and Plan (Free Text) Assessment: ADRENALITIS R/O PE R/O MALIGNANCY Plan: .
[2017-02-06] MEDS: Heparin25000 units/250ml 1/2NS 25,000 UNITS/250 ML BAG IV PRN (19:32)
[2017-02-06 19:59] LABS: INR 1.2
[2017-02-06] MEDS ORDERED: Iodixanol 320 mg/ml 150 ml Bottle IV ONE (21:25)
[2017-02-06 22:29] LABS: TROPONIN I 0.064 ng/mL (0.00-0.120)
--- NOTE | 2017-02-06 23:09 | CT ---
EXAM: CT Angiography Chest With Intravenous Contrast CLINICAL HISTORY: 76 years old, female; Signs and symptoms; Shortness of breath; Additional info: SOB TECHNIQUE: Axial computed tomographic angiography images of the chest with intravenous contrast using pulmonary embolism protocol. All CT scans at this facility use one or more dose reduction techniques, viz.: automated exposure control; ma/kV adjustment per patient size (including targeted exams where dose is matched to indication; i.e. head); or iterative reconstruction technique. MIP reconstructed images were created and reviewed. Coronal and sagittal reformatted images were created and reviewed. CONTRAST: 100 mL of visipaque 320 administered intravenously. COMPARISON: CT - ABD PELVIS PO IV CONTRAST 02/05/2017 8:14:43 PM FINDINGS: Limitations: Motion artifact - mild. Pulmonary arteries: Several filling defects within segmental, subsegmental branches. No saddle embolus. Aorta: Mild atherosclerotic disease. No aneurysm. Lungs: Minimal atelectasis/scarring. No consolidation. Few pulmonary nodules, up to 0.3 cm. Pleural space: Small RIGHT pleural effusion. No pneumothorax. Heart: Borderline cardiomegaly. No significant pericardial effusion. Thyroid: 1.2 x 0.8 x 0.8 cm nodule LEFT lobe. Bones/joints: No acute fracture. No dislocation. Soft tissues: Unremarkable. Lymph nodes: No pathologically enlarged lymph nodes. Adrenals: Moderate stranding about adrenal glands. IMPRESSION: 1. Pulmonary emboli. 2. Inflammation about adrenal glands. Clinical correlation is needed. 3. Thyroid nodule. Followup as clinically warranted. 4. Pulmonary nodules. For low-risk patients, no follow-up is necessary. For high-risk patients (smoking history or other known risk factors) an optional CT at 12 months could be performed. 5. Incidental/non-acute findings are described above.
--- NOTE | 2017-02-06 23:42 | CP.PCM.CON ---
History of Present Illness - History of Present Illness History of Present Illness: 76 F with h/o hyperthyroidism, htn came with c/o some vague back pain on the right side, upper abdominal pain, abd ct done yesterday showed some inflammation in bilateral adrenals, micorcytic anemia, thrombocytosis, bands. Patient today around noon time started to be breathing difficult with pain in right side of chest on deep breathing. Primary team evaluation noticed her being sob and ICU eval was requested. Patient also had V/Q scan ordered this afternoon for the symptoms which suggested high probability of PE and was started on therapeutic dose of heparin. Patient c/o some breathing difficulty and was trying to be comfortable. RR about 20's/min, HR 90s/min maintained BP, afebrile, no significant pain. CTA ordered by me show, small sub semental PE, small right pl effusion PMH as above PSH none Allergies NKDA Social stopped smoking 40 yrs back, denies alcohol Meds methimazole and amlodipine, in hospital med reviewed Review of Systems - Review of Systems All systems: reviewed and no additional remarkable complaints except (HPI) Past Patient History - Infectious Disease Hx of Infectious Diseases: None - Past Medical History & Family History Past Medical History?: Yes - Past Social History Smoking Status: Former Smoker (40 yrs back) Drugs: Denies - CARDIAC Hx Cardiac Disorders: Yes Hx Hypercholesterolemia: Yes Hx Hypertension: Yes - PULMONARY Hx Respiratory Disorders: No - NEUROLOGICAL Hx Neurological Disorder: No - HEENT Hx HEENT Problems: No - RENAL Hx Chronic Kidney Disease: No - ENDOCRINE/METABOLIC Hx Endocrine Disorders: Yes Hx Hyperthyroidism: Yes - HEMATOLOGICAL/ONCOLOGICAL Hx Blood Disorders: No - INTEGUMENTARY Hx Dermatological Problems: No - MUSCULOSKELETAL/RHEUMATOLOGICAL Hx Musculoskeletal Disorders: No Hx Falls: Yes - GASTROINTESTINAL Hx Gastrointestinal Disorders: Yes Hx Gastritis: Yes - GENITOURINARY/GYNECOLOGICAL Hx Genitourinary Disorders: No - PSYCHIATRIC Hx Psychophysiologic Disorder: No Hx Substance Use: No - SURGICAL HISTORY Hx Surgeries: No - ANESTHESIA Hx Anesthesia: No Meds Allergies/Adverse Reactions: Allergies Allergy/AdvReac Type Severity Reaction Status Date / Time No Known Allergies Allergy Verified 02/05/17 16:11 - Medications Medications: Current Medications Potassium Chloride 20 meq/ (Dextrose/Sodium Chloride) 1,010 mls @ 125 mls/hr IV .Q8H5M [facility] Last Admin: 02/06/17 14:59 Dose: 125 mls/hr Heparin Sodium/Sodium Chloride (Heparin 09895 Units/250ml 1/2 Normal Saline) 25 ,000 units in 250 mls @ 11.431 mls/hr IV .[id number] PRN; Protocol; 18 UNITS/KG/HR PRN Reason: PROTOCOL Last Admin: 02/06/17 19:32 Dose: 18 units/kg/hr, 11.431 mls/hr Lorazepam (Ativan) 0.5 mg IM HS [facility] Metoclopramide HCl (Reglan) 10 mg IVP Q8H [facility] Last Admin: 02/06/17 19:58 Dose: 10 mg Morphine Sulfate (Morphine) 4 mg IV Q6 PRN PRN Reason: MODERATE PAIN, 4-7 Last Admin: 02/06/17 09:46 Dose: 4 mg Nitroglycerin (Nitro-Bid 2% Oint) 1 ea TOP Q8H [facility] Last Admin: 02/06/17 19:57 Dose: 1 ea Pantoprazole Sodium (Protonix Inj) 40 mg IVP DAILY [facility] Last Admin: 02/06/17 09:53 Dose: 40 mg Pneumococcal Polyvalent Vaccine (Pneumovax 23 Vaccine) 0.5 ml IM .ONCE ONE Stop: 02/08/17 10:01 Physical Exam - Additional Findings Additional findings: * HEENT Yeni * Neck Supple, JVD 1-2 cm above clavical * CVS regular, no murmur, no gallop * Chest Clear, no wheezes * PA soft, nt, bs present * Ext no edema, normal turgor * 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 Results - Vital Signs Recent Vital Signs: Last Vital Signs Temp 98.6 F 02/06/17 15:00 Pulse 93 H 02/06/17 15:00 Resp 20 02/06/17 15:00 BP 141/69 02/06/17 15:00 Pulse Ox 95 02/06/17 15:00 - Labs Result Diagrams: 02/06/17 06:23 02/06/17 06:23 Labs: Laboratory Results - last 24 hr 02/06/17 02/06/17 02/06/17 06:23 06:23 19:32 WBC 8.3 RBC 3.48 L Hgb 8.6 L Hct 25.5 L MCV 73.2 L MCH 24.7 L MCHC 33.8 RDW 28.2 H Plt Count 723 H D MPV 8.4 Neut % (Auto) 60.8 Lymph % (Auto) 36.5 [place] % (Auto) 0.9 Eos % (Auto) 0.9 Baso % (Auto) 0.9 Neut # 5.1 Lymph # 3.0 [place] # 0.1 Eos # 0.1 Baso # 0.1 Neutrophils % (Manual) 73 Band Neutrophils % 12 H* Lymphocytes % (Manual) 8 L Monocytes % (Manual) 2 Eosinophils % (Manual) 3 Myelocytes % 2 H Platelet Estimate Increased H Large Platelets Present Giant Platelets Present Hypochromasia (manual) Slight Poikilocytosis (manual Moderate Basophilic Stippling Slight Anisocytosis (manual) Marked Target Cells Slight Schistocytes Moderate PT 13.7 H INR 1.2 APTT 33 Sodium 129 L Potassium 3.8 Chloride 95 L Carbon Dioxide 24 Anion Gap 14 BUN 5 L Creatinine 0.4 L Est GFR ( Amer) > 60 Est GFR (Non-Af Amer) > 60 Random Glucose 136 H Calcium 8.5 L Total Bilirubin 0.7 AST 26 ALT 33 Alkaline Phosphatase 50 CK-MB (Mass) Troponin I Total Protein 6.5 Albumin 3.6 Globulin 2.8 Albumin/Globulin Ratio 1.3 Amylase 42 Lipase 18 L Thyroxine (T4) 7.22 TSH 3rd Generation 1.03 Cortisol AM Sample 19.1 Blood Type Antibody Screen 02/06/17 02/06/17 20:11 21:24 WBC RBC Hgb Hct MCV MCH MCHC RDW Plt Count MPV Neut % (Auto) Lymph % (Auto) [place] % (Auto) Eos % (Auto) Baso % (Auto) Neut # Lymph # [place] # Eos # Baso # Neutrophils % (Manual) Band Neutrophils % Lymphocytes % (Manual) Monocytes % (Manual) Eosinophils % (Manual) Myelocytes % Platelet Estimate Large Platelets Giant Platelets Hypochromasia (manual) Poikilocytosis (manual Basophilic Stippling Anisocytosis (manual) Target Cells Schistocytes PT INR APTT Sodium Potassium Chloride Carbon Dioxide Anion Gap BUN Creatinine Est GFR ( Amer) Est GFR (Non-Af Amer) Random Glucose Calcium Total Bilirubin AST ALT Alkaline Phosphatase CK-MB (Mass) 1.96 Troponin I 0.0640 Total Protein Albumin Globulin Albumin/Globulin Ratio Amylase Lipase Thyroxine (T4) TSH 3rd Generation Cortisol AM Sample Blood Type O POSITIVE Antibody Screen Negative Assessment & Plan - Assessment and Plan (Free Text) Assessment: * PE new diagnosed vague back pain yesterday with worsening symptoms today * Microcytic anemia being worked up without history of acute loss * Thrombocytosis, positive bands * Adrenal b/l inflammation * History of hyperthyroidism * H/o htn * Mild hyponatremia Plan: * Therapeutic anticoagulation currently on heparin drip * Venous doppler, echo * Hematology w/u for anemia, hypercoagulation, thrombocytosis, bands as per hematology on the case * Will transfer to ICU till symptoms stablize and intitial diagnostic w/u done * Monitory h/h as suspecion of blood loss with prior anemia and currently on therapeutic anticoagulation * D/w patient and daughter * PPI for gi prophylaxis * See orders for detail.
[2017-02-07] MEDS: Nitroglycerin 2% Ointment Foilpak UD TOP SCH ×3 (01:40→17:47)
[2017-02-07] MEDS: Potassium Chloride 20 MEQ in Dextrose 5%/0.9% NS 1,000 ML IV SCH ×3 (03:50→12:22)
[2017-02-07 06:34] LABS: HEMATOCRIT 24.9 % (34.0-47.0); MEAN CELL VOLUME 74.5 fL (81.0-99.0); MEAN CORPUSCULAR HEMOGLOBIN 24.6 pg (27.0-31.0); MEAN PLATELET VOLUME 9.1 fL (7.2-11.7); PLATELET COUNT 663 K/uL (130-400); RED CELL DISTRIBUTION WIDTH 27.9 % (11.5-14.5)
[2017-02-07 06:42] LABS: POTASSIUM 4.7 mmol/L (3.6-5.2)
[2017-02-07 06:49] LABS: CHLORIDE 94 mmol/L (98-107)
[2017-02-07 06:50] LABS: SODIUM 125 mmol/L (132-148)
[2017-02-07 06:52] LABS: ALB/GLOB RATIO 1.1 (1.0-2.1); ALKALINE PHOSPHATASE 51 U/L (38-126); AST/SGOT 53 U/L (14-36); BILIRUBIN,TOTAL 1.2 mg/dL (0.2-1.3); BLOOD UREA NITROGEN 4 mg/dL (7-17); CARBON DIOXIDE 21 mmol/L (22-30); GFR AFRICAN-AMERICAN > 60; TOTAL PROTEIN 6.5 g/dL (6.3-8.3)
[2017-02-07 06:53] LABS: ALT/SGPT 31 U/L (9-52); CALCIUM 8.3 mg/dl (8.6-10.4); GLUCOSE,RANDOM 117 mg/dL (65-105)
--- NOTE | 2017-02-07 07:42 | RAD ---
PROCEDURE: CHEST RADIOGRAPH, 1 VIEW HISTORY: r/o pneumonia COMPARISON: Comparison is made to 09/18 in 11/2019 50 FINDINGS: LUNGS: Small opacity at the right lung base may represent atelectasis or pneumonia. PLEURA: Blunting of the right costophrenic angle may be due to small pleural effusion. CARDIOVASCULAR: Normal. OSSEOUS STRUCTURES: No significant abnormalities. VISUALIZED UPPER ABDOMEN: Normal. OTHER FINDINGS: None. IMPRESSION: Opacity at the right lung base may represent atelectasis or pneumonia. Possible small right pleural effusion
[2017-02-07 08:47] LABS: ERYTHROCYTE SEDIMENTATION RATE 18 mm/hr (0-20)
--- NOTE | 2017-02-07 08:50 | CP.PCM.PN ---
Subjective - Date & Time of Evaluation Date of Evaluation: 02/07/17 Time of Evaluation: 08:45 - Subjective Subjective: Pt events noted. Still constipated c/o enema was not given. Objective - Vital Signs/Intake and Output Vital Signs (last 24 hours): Temp Pulse Resp BP Pulse Ox 98.2 F 105 H 35 H 134/74 100 02/07/17 04:00 02/07/17 07:00 02/07/17 07:00 02/07/17 07:00 02/07/17 07:00 Intake and Output: 02/07/17 02/07/17 06:59 18:59 Intake Total 1018.4 136.4 Output Total 430 50 Balance 588.4 86.4 - Medications Medications: Current Medications Potassium Chloride 20 meq/ (Dextrose/Sodium Chloride) 1,010 mls @ 125 mls/hr IV .Q8H5M [facility] Last Admin: 02/07/17 07:16 Dose: Not Given Heparin Sodium/Sodium Chloride (Heparin 70627 Units/250ml 1/2 Normal Saline) 25 ,000 units in 250 mls @ 11.431 mls/hr IV .[id number] PRN; Protocol; 18 UNITS/KG/HR PRN Reason: PROTOCOL Last Admin: 02/06/17 19:32 Dose: 18 units/kg/hr, 11.431 mls/hr Lorazepam (Ativan) 0.5 mg IM HS [facility] Last Admin: 02/06/17 22:00 Dose: Not Given Metoclopramide HCl (Reglan) 10 mg IVP Q8H [facility] Last Admin: 02/07/17 01:40 Dose: 10 mg Morphine Sulfate (Morphine) 4 mg IV Q6 PRN PRN Reason: MODERATE PAIN, 4-7 Last Admin: 02/06/17 09:46 Dose: 4 mg Nitroglycerin (Nitro-Bid 2% Oint) 1 ea TOP Q8H [facility] Last Admin: 02/07/17 01:40 Dose: 1 ea Pantoprazole Sodium (Protonix Inj) 40 mg IVP DAILY [facility] Last Admin: 02/06/17 09:53 Dose: 40 mg Pneumococcal Polyvalent Vaccine (Pneumovax 23 Vaccine) 0.5 ml IM .ONCE ONE Stop: 02/08/17 10:01 - Labs Labs: 02/07/17 06:24 02/07/17 06:24 PT 13.7 SECONDS (9.7-12.2) H 02/06/17 19:32 INR 1.2 02/06/17 19:32 APTT 55 SECONDS (21-34) H D 02/07/17 08:02 - Constitutional Appears: Toxic - Eye Exam Eye Exam: Normal appearance - ENT Exam ENT Exam: Mucous Membranes Moist - Respiratory Exam Respiratory Exam: Decreased Breath Sounds. absent: Rales, Rhonchi, Wheezes - Cardiovascular Exam Cardiovascular Exam: Tachycardia, REGULAR RHYTHM, +S1, +S2. absent: JVD - GI/Abdominal Exam GI & Abdominal Exam: Soft. absent: Tenderness, Mass - Extremities Exam Extremities Exam: Full ROM, Normal Capillary Refill. absent: Calf Tenderness, Joint Swelling, Pedal Edema Assessment and Plan - Assessment and Plan (Free Text) Assessment: Pulmonary Emboli; Bilateral adrenal onflamation ? Etio prob Myeloproliferative disease Cont meds/ supprotive care Stop IV j hydration c/o danish dec BUN
[2017-02-07] MEDS ORDERED: Magnesium Hydroxide Susp 30 ml UD PO ONE (09:00)
[2017-02-07 09:49] LABS: LYMPH # 1.3 K/uL (1.0-4.3); MONO # 0.3 K/uL (0.0-0.8)
[2017-02-07 09:58] LABS: EOSINOPHIL 3 % (0-4); MYELOCYTE 1 % (0-0); NEUTROPHIL 59 % (50-75); REACTIVE LYMPHOCYTES 1 % (0-0); TOTAL CELLS COUNTED 100
[2017-02-07 09:59] LABS: GIANT PLATELETS PRESENT; LARGE PLATELETS PRESENT; SPHEROCYTES SLIGHT
--- NOTE | 2017-02-07 12:20 | CP.CCUPN ---
<Livia Nagel E - Last Filed: 02/07/17 15:47> CCU Subjective - Physician Review Subjective (Free Text): Patient was seen and examined at bedside. Patient reports that her symptoms are improving. Patient refused BiPAP and is on high flow O2 with 40% Fio2 now. Patient still complains of some SOB, dizziness, abdominal and right flank pain. Denies any fever, chills, nausea, vomiting. As per nursing, patient had no acute issues overnight. CCU Objective - Vital Signs / Intake & Output Vital Signs (Last 4 hours): Vital Signs Pulse Resp BP Pulse Ox 02/07/17 11:00 98 H 21 141/81 02/07/17 10:00 97 H 21 148/95 H 99 02/07/17 09:00 95 H 17 130/75 100 Intake and Output (Last 8hrs): Intake & Output 02/06/17 02/07/17 02/07/17 22:59 06:59 14:59 Intake Total 100 1018.4 782.0 Output Total 430 50 Balance 100 588.4 732.0 Intake: Intake, IV Amount 818.4 682.0 Right Antecubital 68.4 57.0 Right Forearm 750 625 Oral 100 200 100 Output: Urine 430 50 Urethral (Banerjee) 430 50 Other: # Voids Urine, Voided 3 - Physical Exam Head: Positive for: Atraumatic, Normocephalic Extroacular Muscles: Positive for: EOMI Respiratory/Chest: Positive for: Clear to Auscultation. Negative for: Respiratory Distress, Accessory Muscle Use Cardiovascular: Positive for: Regular Rate and Rhythm, Normal S1, S2 Abdomen: Positive for: Normal Bowel Sounds. Negative for: Tenderness Upper Extremity: Negative for: Edema Lower Extremity: Positive for: Normal Inspection. Negative for: Edema, CALF TENDERNESS Neurological: Positive for: GCS=15 Skin: Positive for: Warm, Normal Color Psychiatric: Positive for: Alert, Oriented x 3 - Medications Active Medications: Active Medications Generic Name Dose Route Start Last Admin Trade Name Freq PRN Reason Stop Dose Admin Potassium Chloride 20 meq/ 1,010 mls @ 125 mls/hr 02/05/17 22:00 02/07/17 07: 16 Dextrose/Sodium Chloride IV Not Given .[id number] VARINDER Heparin Sodium/Sodium Chloride 25,000 units in 250 mls @ 11.431 mls/hr 19:30 02/06/17 19:32 Heparin 00770 Units/250ml 1/2 Normal Saline IV 18 units/kg/hr .[id number] PRN 11.431 mls/hr PROTOCOL Administration Protocol 18 UNITS/KG/HR Lorazepam 0.5 mg 02/06/17 22:00 02/06/17 22:00 Ativan IM Not Given HS VARINDER Metoclopramide HCl 10 mg 02/06/17 09:00 02/07/17 09:13 Reglan IVP 10 mg Q8H VARINDER Administration Morphine Sulfate 4 mg 02/06/17 09:23 02/06/17 09:46 Morphine IV 4 mg Q6 PRN Administration MODERATE PAIN, 4-7 Nitroglycerin 1 ea 02/06/17 09:30 02/07/17 09:13 Nitro-Bid 2% Oint TOP 1 ea Q8H VARINDER Administration Pantoprazole Sodium 40 mg 02/06/17 10:00 02/07/17 09:13 Protonix Inj IVP 40 mg DAILY VARINDER Administration Pneumococcal Polyvalent Vaccine 0.5 ml 02/08/17 10:00 Pneumovax 23 Vaccine IM 02/08/17 10:01 .ONCE ONE - Patient Studies Lab Studies: Microbiology Studies 02/05/17 16:45 Blood Culture - Preliminary Blood NO GROWTH AFTER 24 HOURS 02/05/17 17:15 Blood Culture - Preliminary Blood NO GROWTH AFTER 24 HOURS Lab Studies 02/07/17 02/07/17 02/07/17 Range/Units 08:02 06:24 06:24 WBC (4.8-10.8) K/uL RBC (3.80-5.20) Mil/uL Hgb (11.0-16.0) g/dL Hct (34.0-47.0) % MCV (81.0-99.0) fL MCH (27.0-31.0) pg MCHC (33.0-37.0) g/dL RDW (11.5-14.5) % Plt Count (130-400) K/uL MPV (7.2-11.7) fL Neut % (Auto) (50.0-75.0) % Lymph % (Auto) (20.0-40.0) % Pre[place] % (Auto) (0.0-10.0) % Eos % (Auto) (0.0-4.0) % Baso % (Auto) (0.0-2.0) % Neut # (1.8-7.0) K/uL Lymph # (1.0-4.3) K/uL Pre[place] # (0.0-0.8) K/uL Eos # (0.0-0.7) K/uL Baso # (0.0-0.2) K/uL Neutrophils % (Manual) (50-75) % Band Neutrophils % (0-2) % Lymphocytes % (Manual) (20-40) % Reactive Lymphs % (0-0) % Monocytes % (Manual) (0-10) % Eosinophils % (Manual) (0-4) % Myelocytes % (0-0) % Platelet Estimate (NORMAL) Large Platelets Giant Platelets Hypochromasia (manual) Poikilocytosis (manual Anisocytosis (manual) Spherocytes Ovalocytes Schistocytes ESR (0-20) mm/hr Retic Count 2.5 H (0.5-1.5) % PT (9.7-12.2) SECONDS INR APTT 55 H D (21-34) SECONDS Sodium (132-148) mmol/L Potassium (3.6-5.2) mmol/L Chloride (98-107) mmol/L Carbon Dioxide (22-30) mmol/L Anion Gap (10-20) BUN (7-17) mg/dL Creatinine (0.7-1.2) MG/DL Est GFR ( Amer) Est GFR (Non-Af Amer) Random Glucose (65-105) mg/dL Hemoglobin A1c 5.6 (4.2-6.5) % Calcium (8.6-10.4) mg/dl Ferritin ng/mL Total Bilirubin (0.2-1.3) mg/dL AST (14-36) U/L ALT (9-52) U/L Alkaline Phosphatase (38-126) U/L Lactate Dehydrogenase (313-618) U/L CK-MB (Mass) (0.0-3.38) ng/mL Troponin I (0.00-0.120) ng/mL Total Protein (6.3-8.3) g/dL Albumin (3.5-5.0) g/dL Globulin (2.2-3.9) gm/dL Albumin/Globulin Ratio (1.0-2.1) Vitamin B12 (239-931) pg/mL Blood Type Antibody Screen 02/07/17 02/07/17 02/07/17 Range/Units 06:24 06:24 01:39 WBC 9.0 (4.8-10.8) K/uL RBC 3.34 L (3.80-5.20) Mil/uL Hgb 8.2 L (11.0-16.0) g/dL Hct 24.9 L (34.0-47.0) % MCV 74.5 L (81.0-99.0) fL MCH 24.6 L (27.0-31.0) pg MCHC 33.0 (33.0-37.0) g/dL RDW 27.9 H (11.5-14.5) % Plt Count 663 H (130-400) K/uL MPV 9.1 (7.2-11.7) fL Neut % (Auto) 82.0 H (50.0-75.0) % Lymph % (Auto) 14.0 L (20.0-40.0) % Pre[place] % (Auto) 3.0 (0.0-10.0) % Eos % (Auto) 1.0 (0.0-4.0) % Baso % (Auto) 0.0 (0.0-2.0) % Neut # 7.4 H (1.8-7.0) K/uL Lymph # 1.3 (1.0-4.3) K/uL Preble # 0.3 (0.0-0.8) K/uL Eos # 0.0 (0.0-0.7) K/uL Baso # 0.0 (0.0-0.2) K/uL Neutrophils % (Manual) 59 (50-75) % Band Neutrophils % 19 H* (0-2) % Lymphocytes % (Manual) 15 L (20-40) % Reactive Lymphs % 1 H (0-0) % Monocytes % (Manual) 2 (0-10) % Eosinophils % (Manual) 3 (0-4) % Myelocytes % 1 H (0-0) % Platelet Estimate Increased H (NORMAL) Large Platelets Present Giant Platelets Present Hypochromasia (manual) Moderate Poikilocytosis (manual Moderate Anisocytosis (manual) Moderate Spherocytes Slight Ovalocytes Slight Schistocytes Moderate ESR 18 (0-20) mm/hr Retic Count (0.5-1.5) % PT (9.7-12.2) SECONDS INR APTT 65 H D (21-34) SECONDS Sodium 125 L (132-148) mmol/L Potassium 4.7 (3.6-5.2) mmol/L Chloride 94 L (98-107) mmol/L Carbon Dioxide 21 L (22-30) mmol/L Anion Gap 15 (10-20) BUN 4 L (7-17) mg/dL Creatinine 0.4 L (0.7-1.2) MG/DL Est GFR ( Amer) > 60 Est GFR (Non-Af Amer) > 60 Random Glucose 117 H (65-105) mg/dL Hemoglobin A1c (4.2-6.5) % Calcium 8.3 L (8.6-10.4) mg/dl Ferritin 427.0 ng/mL Total Bilirubin 1.2 (0.2-1.3) mg/dL AST 53 H D (14-36) U/L ALT 31 (9-52) U/L Alkaline Phosphatase 51 (38-126) U/L Lactate Dehydrogenase 613 (313-618) U/L CK-MB (Mass) (0.0-3.38) ng/mL Troponin I (0.00-0.120) ng/mL Total Protein 6.5 (6.3-8.3) g/dL Albumin 3.4 L (3.5-5.0) g/dL Globulin 3.1 (2.2-3.9) gm/dL Albumin/Globulin Ratio 1.1 (1.0-2.1) Vitamin B12 825 (239-931) pg/mL Blood Type Antibody Screen 02/06/17 02/06/17 02/06/17 Range/Units 21:24 20:11 19:32 WBC (4.8-10.8) K/uL RBC (3.80-5.20) Mil/uL Hgb (11.0-16.0) g/dL Hct (34.0-47.0) % MCV (81.0-99.0) fL MCH (27.0-31.0) pg MCHC (33.0-37.0) g/dL RDW (11.5-14.5) % Plt Count (130-400) K/uL MPV (7.2-11.7) fL Neut % (Auto) (50.0-75.0) % Lymph % (Auto) (20.0-40.0) % Pre[place] % (Auto) (0.0-10.0) % Eos % (Auto) (0.0-4.0) % Baso % (Auto) (0.0-2.0) % Neut # (1.8-7.0) K/uL Lymph # (1.0-4.3) K/uL Preble # (0.0-0.8) K/uL Eos # (0.0-0.7) K/uL Baso # (0.0-0.2) K/uL Neutrophils % (Manual) (50-75) % Band Neutrophils % (0-2) % Lymphocytes % (Manual) (20-40) % Reactive Lymphs % (0-0) % Monocytes % (Manual) (0-10) % Eosinophils % (Manual) (0-4) % Myelocytes % (0-0) % Platelet Estimate (NORMAL) Large Platelets Giant Platelets Hypochromasia (manual) Poikilocytosis (manual Anisocytosis (manual) Spherocytes Ovalocytes Schistocytes ESR (0-20) mm/hr Retic Count (0.5-1.5) % PT 13.7 H (9.7-12.2) SECONDS INR 1.2 APTT 33 (21-34) SECONDS Sodium (132-148) mmol/L Potassium (3.6-5.2) mmol/L Chloride (98-107) mmol/L Carbon Dioxide (22-30) mmol/L Anion Gap (10-20) BUN (7-17) mg/dL Creatinine (0.7-1.2) MG/DL Est GFR ( Amer) Est GFR (Non-Af Amer) Random Glucose (65-105) mg/dL Hemoglobin A1c (4.2-6.5) % Calcium (8.6-10.4) mg/dl Ferritin ng/mL Total Bilirubin (0.2-1.3) mg/dL AST (14-36) U/L ALT (9-52) U/L Alkaline Phosphatase (38-126) U/L Lactate Dehydrogenase (313-618) U/L CK-MB (Mass) 1.96 (0.0-3.38) ng/mL Troponin I 0.0640 (0.00-0.120) ng/mL Total Protein (6.3-8.3) g/dL Albumin (3.5-5.0) g/dL Globulin (2.2-3.9) gm/dL Albumin/Globulin Ratio (1.0-2.1) Vitamin B12 (239-931) pg/mL Blood Type O POSITIVE Antibody Screen Negative Laboratory Results - last 24 hr 02/06/17 02/06/17 02/06/17 19:32 20:11 21:24 WBC RBC Hgb Hct MCV MCH MCHC RDW Plt Count MPV Neut % (Auto) Lymph % (Auto) Pre[place] % (Auto) Eos % (Auto) Baso % (Auto) Neut # Lymph # [place] # Eos # Baso # Neutrophils % (Manual) Band Neutrophils % Lymphocytes % (Manual) Reactive Lymphs % Monocytes % (Manual) Eosinophils % (Manual) Myelocytes % Platelet Estimate Large Platelets Giant Platelets Hypochromasia (manual) Poikilocytosis (manual Anisocytosis (manual) Spherocytes Ovalocytes Schistocytes ESR Retic Count PT 13.7 H INR 1.2 APTT 33 Sodium Potassium Chloride Carbon Dioxide Anion Gap BUN Creatinine Est GFR ( Amer) Est GFR (Non-Af Amer) Random Glucose Hemoglobin A1c Calcium Ferritin Total Bilirubin AST ALT Alkaline Phosphatase Lactate Dehydrogenase CK-MB (Mass) 1.96 Troponin I 0.0640 Total Protein Albumin Globulin Albumin/Globulin Ratio Vitamin B12 Blood Type O POSITIVE Antibody Screen Negative 02/07/17 02/07/17 02/07/17 01:39 06:24 06:24 WBC 9.0 RBC 3.34 L Hgb 8.2 L Hct 24.9 L MCV 74.5 L MCH 24.6 L MCHC 33.0 RDW 27.9 H Plt Count 663 H MPV 9.1 Neut % (Auto) 82.0 H Lymph % (Auto) 14.0 L Pre[place] % (Auto) 3.0 Eos % (Auto) 1.0 Baso % (Auto) 0.0 Neut # 7.4 H Lymph # 1.3 Preble # 0.3 Eos # 0.0 Baso # 0.0 Neutrophils % (Manual) 59 Band Neutrophils % 19 H* Lymphocytes % (Manual) 15 L Reactive Lymphs % 1 H Monocytes % (Manual) 2 Eosinophils % (Manual) 3 Myelocytes % 1 H Platelet Estimate Increased H Large Platelets Present Giant Platelets Present Hypochromasia (manual) Moderate Poikilocytosis (manual Moderate Anisocytosis (manual) Moderate Spherocytes Slight Ovalocytes Slight Schistocytes Moderate ESR 18 Retic Count PT INR APTT 65 H D Sodium 125 L Potassium 4.7 Chloride 94 L Carbon Dioxide 21 L Anion Gap 15 BUN 4 L Creatinine 0.4 L Est GFR ( Amer) > 60 Est GFR (Non-Af Amer) > 60 Random Glucose 117 H Hemoglobin A1c Calcium 8.3 L Ferritin 427.0 Total Bilirubin 1.2 AST 53 H D ALT 31 Alkaline Phosphatase 51 Lactate Dehydrogenase 613 CK-MB (Mass) Troponin I Total Protein 6.5 Albumin 3.4 L Globulin 3.1 Albumin/Globulin Ratio 1.1 Vitamin B12 825 Blood Type Antibody Screen 02/07/17 02/07/17 02/07/17 06:24 06:24 08:02 WBC RBC Hgb Hct MCV MCH MCHC RDW Plt Count MPV Neut % (Auto) Lymph % (Auto) [place] % (Auto) Eos % (Auto) Baso % (Auto) Neut # Lymph # [place] # Eos # Baso # Neutrophils % (Manual) Band Neutrophils % Lymphocytes % (Manual) Reactive Lymphs % Monocytes % (Manual) Eosinophils % (Manual) Myelocytes % Platelet Estimate Large Platelets Giant Platelets Hypochromasia (manual) Poikilocytosis (manual Anisocytosis (manual) Spherocytes Ovalocytes Schistocytes ESR Retic Count 2.5 H PT INR APTT 55 H D Sodium Potassium Chloride Carbon Dioxide Anion Gap BUN Creatinine Est GFR ( Amer) Est GFR (Non-Af Amer) Random Glucose Hemoglobin A1c 5.6 Calcium Ferritin Total Bilirubin AST ALT Alkaline Phosphatase Lactate Dehydrogenase CK-MB (Mass) Troponin I Total Protein Albumin Globulin Albumin/Globulin Ratio Vitamin B12 Blood Type Antibody Screen EKG/Cardiology Studies: Cardiology / EKG Studies 02/06/17 20:43 ELECTROCARDIOGRAM Stat Comment: Mode Of Transportation: Reason For Exam: sob Isolation: Contact Review of Systems - Constitutional Constitutional: absent: Fever, Chills, Weakness - EENT Eyes: absent: Change in Vision Ears: absent: Dizziness - Cardiovascular Cardiovascular: absent: Chest Pain, Diaphoresis, Dyspnea, Edema, Lightheadedness , Palpitations, Pedal Edema, Syncope - Respiratory Respiratory: absent: Dyspnea, Dyspnea on Exertion, Wheezing - Gastrointestinal Gastrointestinal: Constipation. absent: Abdominal Pain, Cramping, Diarrhea, Nausea, Vomiting - Neurological Neurological: absent: Dizziness, Headaches, Syncope, Weakness Critical Care Progress Note - Nutrition Nutrition: Nutrition Category Date Time Status Liquid Diet [DIET] Diets 02/06/17 Breakfast Active Assessment/Plan - Assessment and Plan (Free Text) Assessment: 76 F with h/o hyperthyroidism, hypertension who had breathing difficult with pain in right side of chest on deep breathing with CT chest Pulmonary emboli: Patient is currently on high flow oxygen with FIO2 at 40% Plan: Pulm: Pulmonary embolus Medication: * Heparin drip, 25,000 units * Morphine 4mg IV Q6 prn ( For pain control) * Nitroglycerin 1 each TOP Q8H Cardio: No acute issues Hx of HTN GI: Nausea Reglan 10mg IV Q8H Neuro: Alert, oriented Prophylaxis: D5W KCl 20meq @125mls/hr DVT: Heparin Drip GI: Protonix 40mg IV daily <Juwan Ballard - Last Filed: 02/07/17 16:59> CCU Objective - Vital Signs / Intake & Output Vital Signs (Last 4 hours): Vital Signs Temp Pulse Resp BP Pulse Ox 02/07/17 16:00 98.9 F 89 21 100 02/07/17 15:00 89 21 126/75 100 02/07/17 14:00 95 H 19 135/78 100 02/07/17 13:18 21 02/07/17 13:00 97 H 18 115/85 100 Intake and Output (Last 8hrs): Intake & Output 02/07/17 02/07/17 02/07/17 06:59 14:59 22:59 Intake Total 1018.4 1191.2 272.8 Output Total 430 50 Balance 588.4 1141.2 272.8 Intake: Intake, IV Amount 818.4 1091.2 272.8 Right Antecubital 68.4 91.2 22.8 Right Forearm 750 1000 250 Oral 200 100 Output: Urine 430 50 Urethral (Banerjee) 430 50 - Medications Active Medications: Active Medications Generic Name Dose Route Start Last Admin Trade Name Freq PRN Reason Stop Dose Admin Heparin Sodium/Sodium Chloride 25,000 units in 250 mls @ 11.431 mls/hr 19:30 02/06/17 19:32 Heparin 63896 Units/250ml 1/2 Normal Saline IV 18 units/kg/hr .[id number] PRN 11.431 mls/hr PROTOCOL Administration Protocol 18 UNITS/KG/HR Lorazepam 0.5 mg 02/06/17 22:00 02/06/17 22:00 Ativan IM Not Given HS VARINDER Metoclopramide HCl 10 mg 02/06/17 09:00 02/07/17 09:13 Reglan IVP 10 mg Q8H VARINDER Administration Morphine Sulfate 4 mg 02/06/17 09:23 02/06/17 09:46 Morphine IV 4 mg Q6 PRN Administration MODERATE PAIN, 4-7 Nitroglycerin 1 ea 02/06/17 09:30 02/07/17 09:13 Nitro-Bid 2% Oint TOP 1 ea Q8H VARINDER Administration Pantoprazole Sodium 40 mg 02/06/17 10:00 02/07/17 09:13 Protonix Inj IVP 40 mg DAILY VARINDER Administration Pneumococcal Polyvalent Vaccine 0.5 ml 02/08/17 10:00 Pneumovax 23 Vaccine IM 02/08/17 10:01 .ONCE ONE - Patient Studies Lab Studies: Microbiology Studies 02/05/17 16:45 Blood Culture - Preliminary Blood NO GROWTH AFTER 24 HOURS 02/05/17 17:15 Blood Culture - Preliminary Blood NO GROWTH AFTER 24 HOURS Lab Studies 02/07/17 02/07/17 02/07/17 Range/Units 08:02 06:24 06:24 WBC (4.8-10.8) K/uL RBC (3.80-5.20) Mil/uL Hgb (11.0-16.0) g/dL Hct (34.0-47.0) % MCV (81.0-99.0) fL MCH (27.0-31.0) pg MCHC (33.0-37.0) g/dL RDW (11.5-14.5) % Plt Count (130-400) K/uL MPV (7.2-11.7) fL Neut % (Auto) (50.0-75.0) % Lymph % (Auto) (20.0-40.0) % [place] % (Auto) (0.0-10.0) % Eos % (Auto) (0.0-4.0) % Baso % (Auto) (0.0-2.0) % Neut # (1.8-7.0) K/uL Lymph # (1.0-4.3) K/uL Pre[place] # (0.0-0.8) K/uL Eos # (0.0-0.7) K/uL Baso # (0.0-0.2) K/uL Neutrophils % (Manual) (50-75) % Band Neutrophils % (0-2) % Lymphocytes % (Manual) (20-40) % Reactive Lymphs % (0-0) % Monocytes % (Manual) (0-10) % Eosinophils % (Manual) (0-4) % Myelocytes % (0-0) % Platelet Estimate (NORMAL) Large Platelets Giant Platelets Hypochromasia (manual) Poikilocytosis (manual Anisocytosis (manual) Spherocytes Ovalocytes Schistocytes ESR (0-20) mm/hr Retic Count 2.5 H (0.5-1.5) % PT (9.7-12.2) SECONDS INR APTT 55 H D (21-34) SECONDS Sodium (132-148) mmol/L Potassium (3.6-5.2) mmol/L Chloride (98-107) mmol/L Carbon Dioxide (22-30) mmol/L Anion Gap (10-20) BUN (7-17) mg/dL Creatinine (0.7-1.2) MG/DL Est GFR ( Amer) Est GFR (Non-Af Amer) Random Glucose (65-105) mg/dL Hemoglobin A1c 5.6 (4.2-6.5) % Calcium (8.6-10.4) mg/dl Ferritin ng/mL Total Bilirubin (0.2-1.3) mg/dL AST (14-36) U/L ALT (9-52) U/L Alkaline Phosphatase (38-126) U/L Lactate Dehydrogenase (313-618) U/L CK-MB (Mass) (0.0-3.38) ng/mL Troponin I (0.00-0.120) ng/mL Total Protein (6.3-8.3) g/dL Albumin (3.5-5.0) g/dL Globulin (2.2-3.9) gm/dL Albumin/Globulin Ratio (1.0-2.1) Vitamin B12 (239-931) pg/mL Blood Type Antibody Screen 02/07/17 02/07/17 02/07/17 Range/Units 06:24 06:24 01:39 WBC 9.0 (4.8-10.8) K/uL RBC 3.34 L (3.80-5.20) Mil/uL Hgb 8.2 L (11.0-16.0) g/dL Hct 24.9 L (34.0-47.0) % MCV 74.5 L (81.0-99.0) fL MCH 24.6 L (27.0-31.0) pg MCHC 33.0 (33.0-37.0) g/dL RDW 27.9 H (11.5-14.5) % Plt Count 663 H (130-400) K/uL MPV 9.1 (7.2-11.7) fL Neut % (Auto) 82.0 H (50.0-75.0) % Lymph % (Auto) 14.0 L (20.0-40.0) % [place] % (Auto) 3.0 (0.0-10.0) % Eos % (Auto) 1.0 (0.0-4.0) % Baso % (Auto) 0.0 (0.0-2.0) % Neut # 7.4 H (1.8-7.0) K/uL Lymph # 1.3 (1.0-4.3) K/uL Preble # 0.3 (0.0-0.8) K/uL Eos # 0.0 (0.0-0.7) K/uL Baso # 0.0 (0.0-0.2) K/uL Neutrophils % (Manual) 59 (50-75) % Band Neutrophils % 19 H* (0-2) % Lymphocytes % (Manual) 15 L (20-40) % Reactive Lymphs % 1 H (0-0) % Monocytes % (Manual) 2 (0-10) % Eosinophils % (Manual) 3 (0-4) % Myelocytes % 1 H (0-0) % Platelet Estimate Increased H (NORMAL) Large Platelets Present Giant Platelets Present Hypochromasia (manual) Moderate Poikilocytosis (manual Moderate Anisocytosis (manual) Moderate Spherocytes Slight Ovalocytes Slight Schistocytes Moderate ESR 18 (0-20) mm/hr Retic Count (0.5-1.5) % PT (9.7-12.2) SECONDS INR APTT 65 H D (21-34) SECONDS Sodium 125 L (132-148) mmol/L Potassium 4.7 (3.6-5.2) mmol/L Chloride 94 L (98-107) mmol/L Carbon Dioxide 21 L (22-30) mmol/L Anion Gap 15 (10-20) BUN 4 L (7-17) mg/dL Creatinine 0.4 L (0.7-1.2) MG/DL Est GFR ( Amer) > 60 Est GFR (Non-Af Amer) > 60 Random Glucose 117 H (65-105) mg/dL Hemoglobin A1c (4.2-6.5) % Calcium 8.3 L (8.6-10.4) mg/dl Ferritin 427.0 ng/mL Total Bilirubin 1.2 (0.2-1.3) mg/dL AST 53 H D (14-36) U/L ALT 31 (9-52) U/L Alkaline Phosphatase 51 (38-126) U/L Lactate Dehydrogenase 613 (313-618) U/L CK-MB (Mass) (0.0-3.38) ng/mL Troponin I (0.00-0.120) ng/mL Total Protein 6.5 (6.3-8.3) g/dL Albumin 3.4 L (3.5-5.0) g/dL Globulin 3.1 (2.2-3.9) gm/dL Albumin/Globulin Ratio 1.1 (1.0-2.1) Vitamin B12 825 (239-931) pg/mL Blood Type Antibody Screen 02/06/17 02/06/17 02/06/17 Range/Units 21:24 20:11 19:32 WBC (4.8-10.8) K/uL RBC (3.80-5.20) Mil/uL Hgb (11.0-16.0) g/dL Hct (34.0-47.0) % MCV (81.0-99.0) fL MCH (27.0-31.0) pg MCHC (33.0-37.0) g/dL RDW (11.5-14.5) % Plt Count (130-400) K/uL MPV (7.2-11.7) fL Neut % (Auto) (50.0-75.0) % Lymph % (Auto) (20.0-40.0) % [place] % (Auto) (0.0-10.0) % Eos % (Auto) (0.0-4.0) % Baso % (Auto) (0.0-2.0) % Neut # (1.8-7.0) K/uL Lymph # (1.0-4.3) K/uL Pre[place] # (0.0-0.8) K/uL Eos # (0.0-0.7) K/uL Baso # (0.0-0.2) K/uL Neutrophils % (Manual) (50-75) % Band Neutrophils % (0-2) % Lymphocytes % (Manual) (20-40) % Reactive Lymphs % (0-0) % Monocytes % (Manual) (0-10) % Eosinophils % (Manual) (0-4) % Myelocytes % (0-0) % Platelet Estimate (NORMAL) Large Platelets Giant Platelets Hypochromasia (manual) Poikilocytosis (manual Anisocytosis (manual) Spherocytes Ovalocytes Schistocytes ESR (0-20) mm/hr Retic Count (0.5-1.5) % PT 13.7 H (9.7-12.2) SECONDS INR 1.2 APTT 33 (21-34) SECONDS Sodium (132-148) mmol/L Potassium (3.6-5.2) mmol/L Chloride (98-107) mmol/L Carbon Dioxide (22-30) mmol/L Anion Gap (10-20) BUN (7-17) mg/dL Creatinine (0.7-1.2) MG/DL Est GFR ( Amer) Est GFR (Non-Af Amer) Random Glucose (65-105) mg/dL Hemoglobin A1c (4.2-6.5) % Calcium (8.6-10.4) mg/dl Ferritin ng/mL Total Bilirubin (0.2-1.3) mg/dL AST (14-36) U/L ALT (9-52) U/L Alkaline Phosphatase (38-126) U/L Lactate Dehydrogenase (313-618) U/L CK-MB (Mass) 1.96 (0.0-3.38) ng/mL Troponin I 0.0640 (0.00-0.120) ng/mL Total Protein (6.3-8.3) g/dL Albumin (3.5-5.0) g/dL Globulin (2.2-3.9) gm/dL Albumin/Globulin Ratio (1.0-2.1) Vitamin B12 (239-931) pg/mL Blood Type O POSITIVE Antibody Screen Negative Laboratory Results - last 24 hr 02/06/17 02/06/17 02/06/17 19:32 20:11 21:24 WBC RBC Hgb Hct MCV MCH MCHC RDW Plt Count MPV Neut % (Auto) Lymph % (Auto) [place] % (Auto) Eos % (Auto) Baso % (Auto) Neut # Lymph # [place] # Eos # Baso # Neutrophils % (Manual) Band Neutrophils % Lymphocytes % (Manual) Reactive Lymphs % Monocytes % (Manual) Eosinophils % (Manual) Myelocytes % Platelet Estimate Large Platelets Giant Platelets Hypochromasia (manual) Poikilocytosis (manual Anisocytosis (manual) Spherocytes Ovalocytes Schistocytes ESR Retic Count PT 13.7 H INR 1.2 APTT 33 Sodium Potassium Chloride Carbon Dioxide Anion Gap BUN Creatinine Est GFR ( Amer) Est GFR (Non-Af Amer) Random Glucose Hemoglobin A1c Calcium Ferritin Total Bilirubin AST ALT Alkaline Phosphatase Lactate Dehydrogenase CK-MB (Mass) 1.96 Troponin I 0.0640 Total Protein Albumin Globulin Albumin/Globulin Ratio Vitamin B12 Blood Type O POSITIVE Antibody Screen Negative 02/07/17 02/07/17 02/07/17 01:39 06:24 06:24 WBC 9.0 RBC 3.34 L Hgb 8.2 L Hct 24.9 L MCV 74.5 L MCH 24.6 L MCHC 33.0 RDW 27.9 H Plt Count 663 H MPV 9.1 Neut % (Auto) 82.0 H Lymph % (Auto) 14.0 L [place] % (Auto) 3.0 Eos % (Auto) 1.0 Baso % (Auto) 0.0 Neut # 7.4 H Lymph # 1.3 [place] # 0.3 Eos # 0.0 Baso # 0.0 Neutrophils % (Manual) 59 Band Neutrophils % 19 H* Lymphocytes % (Manual) 15 L Reactive Lymphs % 1 H Monocytes % (Manual) 2 Eosinophils % (Manual) 3 Myelocytes % 1 H Platelet Estimate Increased H Large Platelets Present Giant Platelets Present Hypochromasia (manual) Moderate Poikilocytosis (manual Moderate Anisocytosis (manual) Moderate Spherocytes Slight Ovalocytes Slight Schistocytes Moderate ESR 18 Retic Count PT INR APTT 65 H D Sodium 125 L Potassium 4.7 Chloride 94 L Carbon Dioxide 21 L Anion Gap 15 BUN 4 L Creatinine 0.4 L Est GFR ( Amer) > 60 Est GFR (Non-Af Amer) > 60 Random Glucose 117 H Hemoglobin A1c Calcium 8.3 L Ferritin 427.0 Total Bilirubin 1.2 AST 53 H D ALT 31 Alkaline Phosphatase 51 Lactate Dehydrogenase 613 CK-MB (Mass) Troponin I Total Protein 6.5 Albumin 3.4 L Globulin 3.1 Albumin/Globulin Ratio 1.1 Vitamin B12 825 Blood Type Antibody Screen 02/07/17 02/07/17 02/07/17 06:24 06:24 08:02 WBC RBC Hgb Hct MCV MCH MCHC RDW Plt Count MPV Neut % (Auto) Lymph % (Auto) [place] % (Auto) Eos % (Auto) Baso % (Auto) Neut # Lymph # [place] # Eos # Baso # Neutrophils % (Manual) Band Neutrophils % Lymphocytes % (Manual) Reactive Lymphs % Monocytes % (Manual) Eosinophils % (Manual) Myelocytes % Platelet Estimate Large Platelets Giant Platelets Hypochromasia (manual) Poikilocytosis (manual Anisocytosis (manual) Spherocytes Ovalocytes Schistocytes ESR Retic Count 2.5 H PT INR APTT 55 H D Sodium Potassium Chloride Carbon Dioxide Anion Gap BUN Creatinine Est GFR ( Amer) Est GFR (Non-Af Amer) Random Glucose Hemoglobin A1c 5.6 Calcium Ferritin Total Bilirubin AST ALT Alkaline Phosphatase Lactate Dehydrogenase CK-MB (Mass) Troponin I Total Protein Albumin Globulin Albumin/Globulin Ratio Vitamin B12 Blood Type Antibody Screen EKG/Cardiology Studies: Cardiology / EKG Studies 02/06/17 20:43 ELECTROCARDIOGRAM Stat Comment: Mode Of Transportation: Reason For Exam: sob Isolation: Contact Critical Care Progress Note - Nutrition Nutrition: Nutrition Category Date Time Status Liquid Diet [DIET] Diets 02/06/17 Breakfast Active Attending/Attestation - Attestation I have personally seen and examined this patient.: Yes I have fully participated in the care of the patient.: Yes I have reviewed all pertinent clinical information: Yes Notes (Text): 02/07/17 16:57 I have seen and examined the patient. Medical records, lab studies, and imaging were reviewed by me and a management plan was formulated on multidisciplinary rounds with resident Dr. Nagel. I agree with their above documented assessment and plan. Patient now being treated for PE, on heparin drip. Thrombocytosis downtrending , possibly reactive. If this doesn't normalize, will have to r/o Myeloproliferative disorder with BM biopsy. Hem/Onc following. Critical Care Time 35 minutes. Multi-disciplinary rounds were performed with house staff, nursing, speech therapy, respiratory therapy, pharmacy and nutrition with integrated input from the primary team/attending and other consulting services. The documented time is cumulative and includes review of patient data/exams/labs/chart review and examination of the patient on rounds and throughout the day; time is exclusive of any procedures or teaching time.
--- NOTE | 2017-02-07 12:38 | CP.PCM.PN ---
Subjective - Date & Time of Evaluation Date of Evaluation: 02/07/17 Time of Evaluation: 08:00 - Subjective Subjective: awake alert anxious mild sob on heparin NAD Objective - Vital Signs/Intake and Output Vital Signs (last 24 hours): Temp Pulse Resp BP Pulse Ox 98.6 F 98 H 21 141/81 99 02/07/17 08:00 02/07/17 11:00 02/07/17 11:00 02/07/17 11:00 02/07/17 10:00 Intake and Output: 02/07/17 02/07/17 06:59 18:59 Intake Total 1018.4 782.0 Output Total 430 50 Balance 588.4 732.0 - Medications Medications: Current Medications Potassium Chloride 20 meq/ (Dextrose/Sodium Chloride) 1,010 mls @ 125 mls/hr IV .Q8H5M [facility] Last Admin: 02/07/17 12:22 Dose: 125 mls/hr Heparin Sodium/Sodium Chloride (Heparin 15768 Units/250ml 1/2 Normal Saline) 25 ,000 units in 250 mls @ 11.431 mls/hr IV .[id number] PRN; Protocol; 18 UNITS/KG/HR PRN Reason: PROTOCOL Last Admin: 02/06/17 19:32 Dose: 18 units/kg/hr, 11.431 mls/hr Lorazepam (Ativan) 0.5 mg IM HS [facility] Last Admin: 02/06/17 22:00 Dose: Not Given Metoclopramide HCl (Reglan) 10 mg IVP Q8H [facility] Last Admin: 02/07/17 09:13 Dose: 10 mg Morphine Sulfate (Morphine) 4 mg IV Q6 PRN PRN Reason: MODERATE PAIN, 4-7 Last Admin: 02/06/17 09:46 Dose: 4 mg Nitroglycerin (Nitro-Bid 2% Oint) 1 ea TOP Q8H [facility] Last Admin: 02/07/17 09:13 Dose: 1 ea Pantoprazole Sodium (Protonix Inj) 40 mg IVP DAILY [facility] Last Admin: 02/07/17 09:13 Dose: 40 mg Pneumococcal Polyvalent Vaccine (Pneumovax 23 Vaccine) 0.5 ml IM .ONCE ONE Stop: 02/08/17 10:01 - Labs Labs: 02/07/17 06:24 02/07/17 06:24 PT 13.7 SECONDS (9.7-12.2) H 02/06/17 19:32 INR 1.2 02/06/17 19:32 APTT 55 SECONDS (21-34) H D 02/07/17 08:02 - Constitutional Appears: Non-toxic, Chronically Ill - Head Exam Head Exam: NORMOCEPHALIC - Eye Exam Eye Exam: absent: Scleral icterus - ENT Exam ENT Exam: Mucous Membranes Dry - Neck Exam Neck Exam: absent: Lymphadenopathy - Respiratory Exam Respiratory Exam: Decreased Breath Sounds - Cardiovascular Exam Cardiovascular Exam: REGULAR RHYTHM - GI/Abdominal Exam GI & Abdominal Exam: Distended - Rectal Exam Rectal Exam: Deferred - Exam Exam: NORMAL INSPECTION - Extremities Exam Extremities Exam: absent: Calf Tenderness, Pedal Edema Assessment and Plan (1) Pulmonary embolism Status: Acute (2) Anemia Status: Acute - Assessment and Plan (Free Text) Assessment: cultures all neg bandemia likely reactive Plan: hold antibiotics
--- NOTE | 2017-02-07 14:15 | CARD ---
APPROVED REPORT EKG Measurement Heart [id number] NC [id number] <Conclusion> Normal sinus rhythm Low voltage QRS Borderline ECG
[2017-02-07] MEDS: Heparin25000 units/250ml 1/2NS 25,000 UNITS/250 ML BAG IV PRN (17:40)
--- NOTE | 2017-02-07 20:41 | CARD ---
APPROVED REPORT EXAM: Two-dimensional and M-mode echocardiogram with Doppler and color Doppler. Other Information Quality : GoodRhythm : INDICATION Pulmonary Embolism RISK FACTORS Hypertension 2D DIMENSIONS IVSd1.0 (0.7-1.1cm)LVDd4.5 (3.9-5.9cm) PWd1.1 (0.7-1.1cm)LVDs3.3 (2.5-4.0cm) FS (%) 25.6 %LVEF (%)50.6 (>50%) M-Mode DIMENSIONS Left Atrium (MM)2.91 (2.5-4.0cm)Aortic Root3.09 (2.2-3.7cm) Aortic Cusp Exc.1.97 (1.5-2.0cm) Mitral Valve MV E Hbvtbkwu86.5cm/sMV A Iclxcszc85.0cm/sE/A ratio0.7 TDI E/Lateral E'0.0E/Medial E'0.0 Tricuspid Valve TR Peak Ydppusqq518ue/sTR Peak Gr.64pmYeAIEV06xjKb LEFT VENTRICLE The left ventricle is normal size. There is normal left ventricular wall thickness. The left ventricular function is normal. The left ventricular ejection fraction is within the normal range. No regional wall motion abnormalities noted. Transmitral Doppler flow pattern is Grade I-abnormal relaxation pattern. No left ventricle thrombus noted on this study. There is no ventricular septal defect visualized. There is no left ventricular aneurysm. There is no mass noted in the left ventricle. RIGHT VENTRICLE The right ventricle is normal size. There is normal right ventricular wall thickness. The right ventricular systolic function is normal. ATRIA The left atrium size is normal. The right atrium size is normal. The interatrial septum is intact with no evidence for an atrial septal defect. AORTIC VALVE The aortic valve is normal in structure and function. No aortic regurgitation is present. There is no aortic valvular stenosis. There is no aortic valvular vegetation. MITRAL VALVE The mitral valve is normal in structure and function. There is no evidence of mitral valve prolapse. There is no mitral valve stenosis. Mitral regurgitation is mild. TRICUSPID VALVE The tricuspid valve is normal in structure and function. There is mild tricuspid regurgitation. Right ventricular systolic pressure is estimated at 30-40 mmHg. There is no tricuspid valve prolapse or vegetation. There is no tricuspid valve stenosis. PULMONIC VALVE The pulmonary valve is normal in structure and function. There is no pulmonic valvular regurgitation. There is no pulmonic valvular stenosis. GREAT VESSELS The aortic root is normal in size. The ascending aorta is normal in size. The pulmonary artery is normal. The IVC is normal in size and collapses >50% with inspiration. PERICARDIAL EFFUSION The pericardium appears normal. There is no pleural effusion. <Conclusion> The left ventricular function is normal. The left ventricular ejection fraction is within the normal range. No regional wall motion abnormalities noted. Mitral regurgitation is mild.
[2017-02-07] MEDS: Morphine 4 MG/ML VIAL IV PRN (20:51)
[2017-02-08] MEDS: Nitroglycerin 2% Ointment Foilpak UD TOP SCH ×3 (01:22→17:41)
[2017-02-08 05:40] LABS: ABG ALLEN TEST POS; ARTERIAL BLOOD HGB O2 SAT 96.7 % (95.0-98.0); CARBOXYHEMOGLOBIN 1.8 % (0.5-1.5); DRAW SITE R RAD; HHB 0.1 % (0.0-5.0); METHEMOGLOBIN 1.5 % (0.0-3.0)
[2017-02-08 06:50] LABS: BASO # 0.1 K/uL (0.0-0.2); BASO % 1.2 % (0.0-2.0); EOS # 0.1 K/uL (0.0-0.7); EOS % 2.2 % (0.0-4.0); HEMATOCRIT 24.2 % (34.0-47.0); LYMPH # 2.5 K/uL (1.0-4.3); LYMPH % 40.8 % (20.0-40.0); MEAN CELL VOLUME 75.7 fL (81.0-99.0); MEAN CORPUSCULAR HEMOGLOBIN 24.1 pg (27.0-31.0); MEAN CORPUSCULAR HGB CONC 31.9 g/dL (33.0-37.0); MEAN PLATELET VOLUME 8.9 fL (7.2-11.7); MONO # 0.2 K/uL (0.0-0.8); MONO % 3.9 % (0.0-10.0); NRBC % 0.6 % (0.0-2.0); RED CELL DISTRIBUTION WIDTH 26.9 % (11.5-14.5); WHITE BLOOD COUNT 6.1 K/uL (4.8-10.8)
[2017-02-08 07:08] LABS: CHLORIDE 97 mmol/L (98-107); POTASSIUM 4.1 mmol/L (3.6-5.2); SODIUM 132 mmol/L (132-148)
[2017-02-08 07:10] LABS: BILIRUBIN,TOTAL 0.8 mg/dL (0.2-1.3); GFR AFRICAN-AMERICAN > 60
[2017-02-08 07:11] LABS: ALKALINE PHOSPHATASE 82 U/L (38-126); ALT/SGPT 43 U/L (9-52); AST/SGOT 36 U/L (14-36); BLOOD UREA NITROGEN 7 mg/dL (7-17); CARBON DIOXIDE 23 mmol/L (22-30); GLUCOSE,RANDOM 100 mg/dL (65-105); PHOSPHOROUS 2.8 mg/dL (2.5-4.5); TOTAL PROTEIN 6.1 g/dL (6.3-8.3)
[2017-02-08 07:12] LABS: CALCIUM 7.9 mg/dl (8.6-10.4); MAGNESIUM 2.1 mg/dL (1.6-2.3)
[2017-02-08 07:25] LABS: TOTAL PROTEIN, SERUM 5.7 g/dL (6.1-8.1)
[2017-02-08] MEDS ORDERED: Pneumococcal 23-Valent Vaccine IM ONE (10:00)
--- NOTE | 2017-02-08 10:22 | CP.PCM.CON ---
History of Present Illness - History of Present Illness History of Present Illness: CC acute sob HPI 76 y/o female wit Hx of HTN and Thyroid disease brought to ED by daughter sent by Dr. Marie with complaints of epigastric, RUQ and LUQ pain radiating to back since Friday. Patient states pain was intermittent but has progressively became constant associated with nausea and vomiting today. Patient reports pain is worse when eating and she has decreased appetite, last bowel movement was 2 days ago secondary to patient not eating solid food Review of Systems - Review of Systems Systems not reviewed;Unavailable: Respiratory Distress - Cardiovascular Cardiovascular: Rapid Heart Rate - Respiratory Respiratory: Dyspnea - Gastrointestinal Gastrointestinal: absent: Abdominal Pain - Neurological Neurological: absent: Focal Weakness Past Patient History - Infectious Disease Hx of Infectious Diseases: None - Past Medical History & Family History Past Medical History?: Yes - Past Social History Smoking Status: Never Smoked - CARDIAC Hx Cardiac Disorders: Yes Hx Hypercholesterolemia: Yes Hx Hypertension: Yes - PULMONARY Hx Respiratory Disorders: No - NEUROLOGICAL Hx Neurological Disorder: No - HEENT Hx HEENT Problems: No - RENAL Hx Chronic Kidney Disease: No - ENDOCRINE/METABOLIC Hx Endocrine Disorders: Yes Hx Hyperthyroidism: Yes - HEMATOLOGICAL/ONCOLOGICAL Hx Blood Disorders: No - INTEGUMENTARY Hx Dermatological Problems: No - MUSCULOSKELETAL/RHEUMATOLOGICAL Hx Musculoskeletal Disorders: No Hx Falls: Yes - GASTROINTESTINAL Hx Gastrointestinal Disorders: Yes Hx Gastritis: Yes - GENITOURINARY/GYNECOLOGICAL Hx Genitourinary Disorders: No - PSYCHIATRIC Hx Psychophysiologic Disorder: No Hx Substance Use: No - SURGICAL HISTORY Hx Surgeries: No - ANESTHESIA Hx Anesthesia: No Meds Allergies/Adverse Reactions: Allergies Allergy/AdvReac Type Severity Reaction Status Date / Time No Known Allergies Allergy Verified 02/05/17 16:11 - Medications Medications: Current Medications Alprazolam (Xanax) 0.5 mg PO HS PRN PRN Reason: Anxiety Heparin Sodium/Sodium Chloride (Heparin 08578 Units/250ml 1/2 Normal Saline) 25 ,000 units in 250 mls @ 11.431 mls/hr IV .[id number] PRN; Protocol; 18 UNITS/KG/HR PRN Reason: PROTOCOL Last Admin: 02/07/17 17:40 Dose: 18 units/kg/hr, 11.431 mls/hr Metoclopramide HCl (Reglan) 10 mg IVP Q8H [facility] Last Admin: 02/08/17 09:35 Dose: 10 mg Morphine Sulfate (Morphine) 4 mg IV Q6 PRN PRN Reason: MODERATE PAIN, 4-7 Last Admin: 02/07/17 20:51 Dose: 4 mg Nitroglycerin (Nitro-Bid 2% Oint) 1 ea TOP Q8H [facility] Last Admin: 02/08/17 09:36 Dose: 1 ea Pantoprazole Sodium (Protonix Inj) 40 mg IVP DAILY [facility] Last Admin: 02/08/17 09:35 Dose: 40 mg Physical Exam - Constitutional Appears: In Acute Distress - Head Exam Head Exam: NORMAL INSPECTION - Eye Exam Eye Exam: absent: Scleral icterus - ENT Exam ENT Exam: Mucous Membranes Moist - Neck Exam Neck exam: Positive for: Full Rom - Respiratory Exam Respiratory Exam: Accessory Muscle Use, Decreased Breath Sounds, Rhonchi - Cardiovascular Exam Cardiovascular Exam: RRR - GI/Abdominal Exam GI & Abdominal Exam: Soft. absent: Tenderness - Extremities Exam Extremities exam: Negative for: pedal edema, tenderness - Neurological Exam Neurological exam: Alert, Oriented x3 Results - Vital Signs Recent Vital Signs: Last Vital Signs Temp 98.2 F 02/08/17 08:00 Pulse 79 02/08/17 08:02 Resp 18 02/08/17 08:02 BP 111/72 02/08/17 08:02 Pulse Ox 100 02/08/17 08:02 - Labs Result Diagrams: 02/08/17 06:43 02/08/17 06:43 Labs: Laboratory Results - last 24 hr 02/06/17 02/07/17 02/07/17 06:23 06:24 20:33 WBC RBC Hgb Hct MCV MCH MCHC RDW Plt Count MPV Neut % (Auto) Lymph % (Auto) [place] % (Auto) Eos % (Auto) Baso % (Auto) Neut # Lymph # [place] # Eos # Baso # APTT 49 H D Puncture Site pCO2 pO2 HCO3 ABG pH ABG Total CO2 ABG O2 Saturation ABG Base Excess ABG Hemoglobin ABG Carboxyhemoglobin POC ABG HHb (Measured) ABG Methemoglobin Fabrice Test Hgb O2 Saturation Liter Flow Sodium Potassium Chloride Carbon Dioxide Anion Gap BUN Creatinine Est GFR ( Amer) Est GFR (Non-Af Amer) Random Glucose Calcium Phosphorus Magnesium Total Bilirubin AST ALT Alkaline Phosphatase Total Protein Total Protein (PEP) 5.7 L Albumin Globulin Albumin/Globulin Ratio ACTH 21 02/08/17 02/08/17 02/08/17 05:16 06:43 06:43 WBC 6.1 RBC 3.20 L Hgb 7.7 L Hct 24.2 L MCV 75.7 L MCH 24.1 L MCHC 31.9 L RDW 26.9 H Plt Count 592 H MPV 8.9 Neut % (Auto) 51.9 Lymph % (Auto) 40.8 H [place] % (Auto) 3.9 Eos % (Auto) 2.2 Baso % (Auto) 1.2 Neut # 3.2 Lymph # 2.5 [place] # 0.2 Eos # 0.1 Baso # 0.1 APTT Puncture Site R rad pCO2 39 pO2 129 H HCO3 27.8 ABG pH 7.46 H ABG Total CO2 28.9 H ABG O2 Saturation 99.9 H ABG Base Excess 3.6 H ABG Hemoglobin 8.1 L ABG Carboxyhemoglobin 1.8 H POC ABG HHb (Measured) 0.1 ABG Methemoglobin 1.5 Fabrice Test Pos Hgb O2 Saturation 96.7 Liter Flow 5.0 Sodium 132 Potassium 4.1 Chloride 97 L Carbon Dioxide 23 Anion Gap 17 BUN 7 Creatinine 0.5 L Est GFR ( Amer) > 60 Est GFR (Non-Af Amer) > 60 Random Glucose 100 Calcium 7.9 L Phosphorus 2.8 Magnesium 2.1 Total Bilirubin 0.8 AST 36 D ALT 43 Alkaline Phosphatase 82 Total Protein 6.1 L Total Protein (PEP) Albumin 3.0 L Globulin 3.1 Albumin/Globulin Ratio 1.0 ACTH 02/08/17 06:43 WBC RBC Hgb Hct MCV MCH MCHC RDW Plt Count MPV Neut % (Auto) Lymph % (Auto) [place] % (Auto) Eos % (Auto) Baso % (Auto) Neut # Lymph # [place] # Eos # Baso # APTT 57 H D Puncture Site pCO2 pO2 HCO3 ABG pH ABG Total CO2 ABG O2 Saturation ABG Base Excess ABG Hemoglobin ABG Carboxyhemoglobin POC ABG HHb (Measured) ABG Methemoglobin Fabrice Test Hgb O2 Saturation Liter Flow Sodium Potassium Chloride Carbon Dioxide Anion Gap BUN Creatinine Est GFR ( Amer) Est GFR (Non-Af Amer) Random Glucose Calcium Phosphorus Magnesium Total Bilirubin AST ALT Alkaline Phosphatase Total Protein Total Protein (PEP) Albumin Globulin Albumin/Globulin Ratio ACTH Assessment & Plan - Assessment and Plan (Free Text) Assessment: Acute pulmonary embolism Myeloproliferative syndrome Plan: CT angio PE protocol ECHO Anticoagulation Pulmonary consult ICU/CCU monitoring - Date & Time Date: 02/06/17 Time: 08:30
--- NOTE | 2017-02-08 10:33 | CP.PCM.PN ---
Subjective - Date & Time of Evaluation Date of Evaluation: 02/07/17 Time of Evaluation: 08:10 - Subjective Subjective: still sob less sob Objective - Vital Signs/Intake and Output Vital Signs (last 24 hours): Temp Pulse Resp BP Pulse Ox 98.2 F 79 18 111/72 100 02/08/17 08:00 02/08/17 08:02 02/08/17 08:02 02/08/17 08:02 02/08/17 08:02 Intake and Output: 02/08/17 02/08/17 06:59 18:59 Intake Total 236.8 34.2 Output Total 620 90 Balance -383.2 -55.8 - Medications Medications: Current Medications Alprazolam (Xanax) 0.5 mg PO HS PRN PRN Reason: Anxiety Heparin Sodium/Sodium Chloride (Heparin 63777 Units/250ml 1/2 Normal Saline) 25 ,000 units in 250 mls @ 11.431 mls/hr IV .[id number] PRN; Protocol; 18 UNITS/KG/HR PRN Reason: PROTOCOL Last Admin: 02/07/17 17:40 Dose: 18 units/kg/hr, 11.431 mls/hr Metoclopramide HCl (Reglan) 10 mg IVP Q8H [facility] Last Admin: 02/08/17 09:35 Dose: 10 mg Morphine Sulfate (Morphine) 4 mg IV Q6 PRN PRN Reason: MODERATE PAIN, 4-7 Last Admin: 02/07/17 20:51 Dose: 4 mg Nitroglycerin (Nitro-Bid 2% Oint) 1 ea TOP Q8H [facility] Last Admin: 02/08/17 09:36 Dose: 1 ea Pantoprazole Sodium (Protonix Inj) 40 mg IVP DAILY [facility] Last Admin: 02/08/17 09:35 Dose: 40 mg - Labs Labs: 02/08/17 06:43 02/08/17 06:43 PT 13.7 SECONDS (9.7-12.2) H 02/06/17 19:32 INR 1.2 02/06/17 19:32 APTT 57 SECONDS (21-34) H D 02/08/17 06:43 - Constitutional Appears: In Acute Distress - Head Exam Head Exam: NORMAL INSPECTION - Eye Exam Eye Exam: absent: Scleral icterus - Neck Exam Neck Exam: Full ROM - Respiratory Exam Respiratory Exam: Decreased Breath Sounds - GI/Abdominal Exam GI & Abdominal Exam: Soft, Normal Bowel Sounds - Extremities Exam Extremities Exam: absent: Pedal Edema - Neurological Exam Neurological Exam: Alert Assessment and Plan - Assessment and Plan (Free Text) Assessment: Acute PE Myeloproliferative disease Plan: Cont AC
--- NOTE | 2017-02-08 14:48 | CP.PCM.PN ---
Subjective - Date & Time of Evaluation Date of Evaluation: 02/08/17 Time of Evaluation: 14:44 - Subjective Subjective: S: Feels better. Less SOB. No chestpain. No fever. Objective - Vital Signs/Intake and Output Vital Signs (last 24 hours): Temp Pulse Resp BP Pulse Ox 98 F 83 19 103/58 L 100 02/08/17 12:45 02/08/17 14:00 02/08/17 14:00 02/08/17 13:30 02/08/17 14:00 Intake and Output: 02/08/17 02/08/17 06:59 18:59 Intake Total 236.8 381.2 Output Total 620 495 Balance -383.2 -113.8 - Medications Medications: Current Medications Alprazolam (Xanax) 0.5 mg PO HS PRN PRN Reason: Anxiety Heparin Sodium/Sodium Chloride (Heparin 37866 Units/250ml 1/2 Normal Saline) 25 ,000 units in 250 mls @ 11.431 mls/hr IV .[id number] PRN; Protocol; 18 UNITS/KG/HR PRN Reason: PROTOCOL Last Admin: 02/07/17 17:40 Dose: 18 units/kg/hr, 11.431 mls/hr Lactulose (Enulose) 20 gm PO Q8H [facility] Last Admin: 02/08/17 11:41 Dose: 20 gm Metoclopramide HCl (Reglan) 10 mg IVP Q8H [facility] Last Admin: 02/08/17 09:35 Dose: 10 mg Morphine Sulfate (Morphine) 4 mg IV Q6 PRN PRN Reason: MODERATE PAIN, 4-7 Last Admin: 02/07/17 20:51 Dose: 4 mg Nitroglycerin (Nitro-Bid 2% Oint) 1 ea TOP Q8H [facility] Last Admin: 02/08/17 09:36 Dose: 1 ea Pantoprazole Sodium (Protonix Inj) 40 mg IVP DAILY [facility] Last Admin: 02/08/17 09:35 Dose: 40 mg - Labs Labs: 02/08/17 06:43 02/08/17 06:43 PT 13.7 SECONDS (9.7-12.2) H 02/06/17 19:32 INR 1.2 02/06/17 19:32 APTT 57 SECONDS (21-34) H D 02/08/17 06:43 - Constitutional Appears: Chronically Ill - Head Exam Head Exam: NORMAL INSPECTION - Eye Exam Eye Exam: Normal appearance - ENT Exam ENT Exam: Normal Exam - Neck Exam Neck Exam: Normal Inspection - Respiratory Exam Respiratory Exam: Decreased Breath Sounds - Cardiovascular Exam Cardiovascular Exam: REGULAR RHYTHM - GI/Abdominal Exam GI & Abdominal Exam: Soft - Rectal Exam Rectal Exam: Deferred - Extremities Exam Extremities Exam: Normal Inspection - Neurological Exam Neurological Exam: Alert Assessment and Plan (1) Anemia Status: Acute (2) Pulmonary embolism Status: Acute - Assessment and Plan (Free Text) Assessment: A: Blood Tranfusion. Apprciate Dr. Meyer notes. Work-up for Myeloproloferative disorder pending. Continue IV Heparin. Appreciate Dr. Sosa notes. Continue medication. Case discuss with daughter.
[2017-02-08] MEDS: Heparin25000 units/250ml 1/2NS 25,000 UNITS/250 ML BAG IV PRN (15:38)
--- NOTE | 2017-02-08 16:50 | CP.CCUPN ---
CCU Subjective - Physician Review Events Since Last Encounter (Free Text): 02/08/17 16:49 76 F with h/o hyperthyroidism, htn came with c/o some vague back pain on the right side, upper abdominal pain, abd ct done yesterday showed some inflammation in bilateral adrenals, micorcytic anemia, thrombocytosis, bands. Patient today around noon time started to be breathing difficult with pain in right side of chest on deep breathing. Primary team evaluation noticed her being sob and ICU eval was requested. Patient also had V/Q scan ordered this afternoon for the symptoms which suggested high probability of PE and was started on therapeutic dose of heparin. Patient c/o some breathing difficulty and was trying to be comfortable. RR about 20's/min, HR 90s/min maintained BP, afebrile, no significant pain. CTA ordered by me show, small sub semental PE, small right pl effusion PMH as above PSH none Allergies NKDA Social stopped smoking 40 yrs back, denies alcohol Meds methimazole and amlodipine, in hospital med reviewed patient is currently on intravenous heparin drip. Patient had a low hemoglobin. 2 units of blood transfusion started. Patient is likely stable otherwise. Assessment and recommendation: patient is a 76-year-old female with history of hyperthyroidism, admitted with primary embolism. On anti-coagulation. we'll continue the current treatment. And will follow the patient CCU Objective - Vital Signs / Intake & Output Vital Signs (Last 4 hours): Vital Signs Temp Pulse Resp BP Pulse Ox 02/08/17 16:10 20 02/08/17 16:00 97.8 F 65 19 129/67 02/08/17 15:45 97.8 F 71 22 128/69 02/08/17 15:30 97.8 F 70 17 121/68 02/08/17 15:00 97.8 F 72 22 124/65 02/08/17 14:00 97.8 F 80 17 128/63 100 02/08/17 13:30 97.8 F 70 22 103/58 L 100 02/08/17 13:15 68 24 107/62 100 02/08/17 13:00 98 F 77 19 114/60 100 Intake and Output (Last 8hrs): Intake & Output 02/08/17 02/08/17 02/08/17 06:59 14:59 22:59 Intake Total 91.2 281.2 717.8 Output Total 320 495 120 Balance -228.8 -213.8 597.8 Weight 131 lb 9.6 oz Intake: IV 250 Intake, IV Amount 91.2 91.2 22.8 Left Forearm 91.2 91.2 22.8 Blood Product 190 445 Red Blood Cells Cpd As1 0 325 Lr Unit [id number] Red Blood Cells Cpd As1 0 Lr Unit [id number] Output: Urine 320 495 120 Urethral (Banerjee) 320 495 120 Other: # Bowel Movements 1 1 - Physical Exam Head: Positive for: Atraumatic, Normocephalic Extroacular Muscles: Positive for: EOMI Respiratory/Chest: Positive for: Clear to Auscultation. Negative for: Respiratory Distress, Accessory Muscle Use Cardiovascular: Positive for: Regular Rate and Rhythm, Normal S1, S2 Abdomen: Positive for: Normal Bowel Sounds. Negative for: Tenderness Upper Extremity: Negative for: Edema Lower Extremity: Positive for: Normal Inspection. Negative for: Edema, CALF TENDERNESS Neurological: Positive for: GCS=15 Skin: Positive for: Warm, Normal Color Psychiatric: Positive for: Alert, Oriented x 3 - Medications Active Medications: Active Medications Generic Name Dose Route Start Last Admin Trade Name Freq PRN Reason Stop Dose Admin Alprazolam 0.5 mg 02/07/17 22:11 Xanax PO HS PRN Anxiety Heparin Sodium/Sodium Chloride 25,000 units in 250 mls @ 11.431 mls/hr 19:30 02/08/17 15:38 Heparin 66483 Units/250ml 1/2 Normal Saline IV 18 units/kg/hr .[id number] PRN 11.431 mls/hr PROTOCOL Administration Protocol 18 UNITS/KG/HR Lactulose 20 gm 02/08/17 11:15 02/08/17 11:41 Enulose PO 20 gm Q8H [facility] Administration Metoclopramide HCl 10 mg 02/06/17 09:00 02/08/17 09:35 Reglan IVP 10 mg Q8H [facility] Administration Morphine Sulfate 4 mg 02/06/17 09:23 02/07/17 20:51 Morphine IV 4 mg Q6 PRN Administration MODERATE PAIN, 4-7 Nitroglycerin 1 ea 02/06/17 09:30 02/08/17 09:36 Nitro-Bid 2% Oint TOP 1 ea Q8H [facility] Administration Pantoprazole Sodium 40 mg 02/06/17 10:00 02/08/17 09:35 Protonix Inj IVP 40 mg DAILY [facility] Administration - Patient Studies Lab Studies: Microbiology Studies 02/06/17 09:00 MRSA Culture (Admit) - Final Nose MRSA NOT DETECTED 02/05/17 16:45 Blood Culture - Preliminary Blood NO GROWTH AFTER 48 HOURS 02/05/17 17:15 Blood Culture - Preliminary Blood NO GROWTH AFTER 48 HOURS Lab Studies 02/08/17 02/08/17 02/08/17 Range/Units 06:43 06:43 06:43 WBC 6.1 (4.8-10.8) K/uL RBC 3.20 L (3.80-5.20) Mil/uL Hgb 7.7 L (11.0-16.0) g/dL Hct 24.2 L (34.0-47.0) % MCV 75.7 L (81.0-99.0) fL MCH 24.1 L (27.0-31.0) pg MCHC 31.9 L (33.0-37.0) g/dL RDW 26.9 H (11.5-14.5) % Plt Count 592 H (130-400) K/uL MPV 8.9 (7.2-11.7) fL Neut % (Auto) 51.9 (50.0-75.0) % Lymph % (Auto) 40.8 H (20.0-40.0) % [place] % (Auto) 3.9 (0.0-10.0) % Eos % (Auto) 2.2 (0.0-4.0) % Baso % (Auto) 1.2 (0.0-2.0) % Neut # 3.2 (1.8-7.0) K/uL Lymph # 2.5 (1.0-4.3) K/uL [place] # 0.2 (0.0-0.8) K/uL Eos # 0.1 (0.0-0.7) K/uL Baso # 0.1 (0.0-0.2) K/uL APTT 57 H D (21-34) SECONDS Puncture Site pCO2 (35-45) mm/Hg pO2 (80-100) mm/Hg HCO3 (21-28) mmol/L ABG pH (7.35-7.45) ABG Total CO2 (22-28) mmol/L ABG O2 Saturation (95-98) % ABG Base Excess (-2.0-3.0) mmol/L ABG Hemoglobin (11.7-17.4) g/dL ABG Carboxyhemoglobin (0.5-1.5) % POC ABG HHb (Measured) (0.0-5.0) % ABG Methemoglobin (0.0-3.0) % Fabrice Test Hgb O2 Saturation (95.0-98.0) % Liter Flow Sodium 132 (132-148) mmol/L Potassium 4.1 (3.6-5.2) mmol/L Chloride 97 L (98-107) mmol/L Carbon Dioxide 23 (22-30) mmol/L Anion Gap 17 (10-20) BUN 7 (7-17) mg/dL Creatinine 0.5 L (0.7-1.2) MG/DL Est GFR ( Amer) > 60 Est GFR (Non-Af Amer) > 60 Random Glucose 100 (65-105) mg/dL Calcium 7.9 L (8.6-10.4) mg/dl Phosphorus 2.8 (2.5-4.5) mg/dL Magnesium 2.1 (1.6-2.3) mg/dL Total Bilirubin 0.8 (0.2-1.3) mg/dL AST 36 D (14-36) U/L ALT 43 (9-52) U/L Alkaline Phosphatase 82 (38-126) U/L Total Protein 6.1 L (6.3-8.3) g/dL Total Protein (PEP) (6.1-8.1) g/dL Albumin 3.0 L (3.5-5.0) g/dL Globulin 3.1 (2.2-3.9) gm/dL Albumin/Globulin Ratio 1.0 (1.0-2.1) ACTH (6-50) pg/mL Blood Type Antibody Screen 02/08/17 02/07/17 02/07/17 Range/Units 05:16 20:33 06:24 WBC (4.8-10.8) K/uL RBC (3.80-5.20) Mil/uL Hgb (11.0-16.0) g/dL Hct (34.0-47.0) % MCV (81.0-99.0) fL MCH (27.0-31.0) pg MCHC (33.0-37.0) g/dL RDW (11.5-14.5) % Plt Count (130-400) K/uL MPV (7.2-11.7) fL Neut % (Auto) (50.0-75.0) % Lymph % (Auto) (20.0-40.0) % [place] % (Auto) (0.0-10.0) % Eos % (Auto) (0.0-4.0) % Baso % (Auto) (0.0-2.0) % Neut # (1.8-7.0) K/uL Lymph # (1.0-4.3) K/uL [place] # (0.0-0.8) K/uL Eos # (0.0-0.7) K/uL Baso # (0.0-0.2) K/uL APTT 49 H D (21-34) SECONDS Puncture Site R rad pCO2 39 (35-45) mm/Hg pO2 129 H (80-100) mm/Hg HCO3 27.8 (21-28) mmol/L ABG pH 7.46 H (7.35-7.45) ABG Total CO2 28.9 H (22-28) mmol/L ABG O2 Saturation 99.9 H (95-98) % ABG Base Excess 3.6 H (-2.0-3.0) mmol/L ABG Hemoglobin 8.1 L (11.7-17.4) g/dL ABG Carboxyhemoglobin 1.8 H (0.5-1.5) % POC ABG HHb (Measured) 0.1 (0.0-5.0) % ABG Methemoglobin 1.5 (0.0-3.0) % Fabrice Test Pos Hgb O2 Saturation 96.7 (95.0-98.0) % Liter Flow 5.0 Sodium (132-148) mmol/L Potassium (3.6-5.2) mmol/L Chloride (98-107) mmol/L Carbon Dioxide (22-30) mmol/L Anion Gap (10-20) BUN (7-17) mg/dL Creatinine (0.7-1.2) MG/DL Est GFR ( Amer) Est GFR (Non-Af Amer) Random Glucose (65-105) mg/dL Calcium (8.6-10.4) mg/dl Phosphorus (2.5-4.5) mg/dL Magnesium (1.6-2.3) mg/dL Total Bilirubin (0.2-1.3) mg/dL AST (14-36) U/L ALT (9-52) U/L Alkaline Phosphatase (38-126) U/L Total Protein (6.3-8.3) g/dL Total Protein (PEP) 5.7 L (6.1-8.1) g/dL Albumin (3.5-5.0) g/dL Globulin (2.2-3.9) gm/dL Albumin/Globulin Ratio (1.0-2.1) ACTH (6-50) pg/mL Blood Type Antibody Screen 02/06/17 02/06/17 Range/Units 20:11 06:23 WBC (4.8-10.8) K/uL RBC (3.80-5.20) Mil/uL Hgb (11.0-16.0) g/dL Hct (34.0-47.0) % MCV (81.0-99.0) fL MCH (27.0-31.0) pg MCHC (33.0-37.0) g/dL RDW (11.5-14.5) % Plt Count (130-400) K/uL MPV (7.2-11.7) fL Neut % (Auto) (50.0-75.0) % Lymph % (Auto) (20.0-40.0) % [place] % (Auto) (0.0-10.0) % Eos % (Auto) (0.0-4.0) % Baso % (Auto) (0.0-2.0) % Neut # (1.8-7.0) K/uL Lymph # (1.0-4.3) K/uL [place] # (0.0-0.8) K/uL Eos # (0.0-0.7) K/uL Baso # (0.0-0.2) K/uL APTT (21-34) SECONDS Puncture Site pCO2 (35-45) mm/Hg pO2 (80-100) mm/Hg HCO3 (21-28) mmol/L ABG pH (7.35-7.45) ABG Total CO2 (22-28) mmol/L ABG O2 Saturation (95-98) % ABG Base Excess (-2.0-3.0) mmol/L ABG Hemoglobin (11.7-17.4) g/dL ABG Carboxyhemoglobin (0.5-1.5) % POC ABG HHb (Measured) (0.0-5.0) % ABG Methemoglobin (0.0-3.0) % Fabrice Test Hgb O2 Saturation (95.0-98.0) % Liter Flow Sodium (132-148) mmol/L Potassium (3.6-5.2) mmol/L Chloride (98-107) mmol/L Carbon Dioxide (22-30) mmol/L Anion Gap (10-20) BUN (7-17) mg/dL Creatinine (0.7-1.2) MG/DL Est GFR ( Amer) Est GFR (Non-Af Amer) Random Glucose (65-105) mg/dL Calcium (8.6-10.4) mg/dl Phosphorus (2.5-4.5) mg/dL Magnesium (1.6-2.3) mg/dL Total Bilirubin (0.2-1.3) mg/dL AST (14-36) U/L ALT (9-52) U/L Alkaline Phosphatase (38-126) U/L Total Protein (6.3-8.3) g/dL Total Protein (PEP) (6.1-8.1) g/dL Albumin (3.5-5.0) g/dL Globulin (2.2-3.9) gm/dL Albumin/Globulin Ratio (1.0-2.1) ACTH 21 (6-50) pg/mL Blood Type O POSITIVE Antibody Screen Negative Laboratory Results - last 24 hr 02/06/17 02/06/17 02/07/17 06:23 20:11 06:24 WBC RBC Hgb Hct MCV MCH MCHC RDW Plt Count MPV Neut % (Auto) Lymph % (Auto) Alger % (Auto) Eos % (Auto) Baso % (Auto) Neut # Lymph # Alger # Eos # Baso # APTT Puncture Site pCO2 pO2 HCO3 ABG pH ABG Total CO2 ABG O2 Saturation ABG Base Excess ABG Hemoglobin ABG Carboxyhemoglobin POC ABG HHb (Measured) ABG Methemoglobin Fabrice Test Hgb O2 Saturation Liter Flow Sodium Potassium Chloride Carbon Dioxide Anion Gap BUN Creatinine Est GFR ( Amer) Est GFR (Non-Af Amer) Random Glucose Calcium Phosphorus Magnesium Total Bilirubin AST ALT Alkaline Phosphatase Total Protein Total Protein (PEP) 5.7 L Albumin Globulin Albumin/Globulin Ratio ACTH 21 Blood Type O POSITIVE Antibody Screen Negative 02/07/17 02/08/17 02/08/17 20:33 05:16 06:43 WBC 6.1 RBC 3.20 L Hgb 7.7 L Hct 24.2 L MCV 75.7 L MCH 24.1 L MCHC 31.9 L RDW 26.9 H Plt Count 592 H MPV 8.9 Neut % (Auto) 51.9 Lymph % (Auto) 40.8 H [place] % (Auto) 3.9 Eos % (Auto) 2.2 Baso % (Auto) 1.2 Neut # 3.2 Lymph # 2.5 [place] # 0.2 Eos # 0.1 Baso # 0.1 APTT 49 H D Puncture Site R rad pCO2 39 pO2 129 H HCO3 27.8 ABG pH 7.46 H ABG Total CO2 28.9 H ABG O2 Saturation 99.9 H ABG Base Excess 3.6 H ABG Hemoglobin 8.1 L ABG Carboxyhemoglobin 1.8 H POC ABG HHb (Measured) 0.1 ABG Methemoglobin 1.5 Fabrice Test Pos Hgb O2 Saturation 96.7 Liter Flow 5.0 Sodium Potassium Chloride Carbon Dioxide Anion Gap BUN Creatinine Est GFR ( Amer) Est GFR (Non-Af Amer) Random Glucose Calcium Phosphorus Magnesium Total Bilirubin AST ALT Alkaline Phosphatase Total Protein Total Protein (PEP) Albumin Globulin Albumin/Globulin Ratio ACTH Blood Type Antibody Screen 02/08/17 02/08/17 06:43 06:43 WBC RBC Hgb Hct MCV MCH MCHC RDW Plt Count MPV Neut % (Auto) Lymph % (Auto) [place] % (Auto) Eos % (Auto) Baso % (Auto) Neut # Lymph # Alger # Eos # Baso # APTT 57 H D Puncture Site pCO2 pO2 HCO3 ABG pH ABG Total CO2 ABG O2 Saturation ABG Base Excess ABG Hemoglobin ABG Carboxyhemoglobin POC ABG HHb (Measured) ABG Methemoglobin Fabrice Test Hgb O2 Saturation Liter Flow Sodium 132 Potassium 4.1 Chloride 97 L Carbon Dioxide 23 Anion Gap 17 BUN 7 Creatinine 0.5 L Est GFR ( Amer) > 60 Est GFR (Non-Af Amer) > 60 Random Glucose 100 Calcium 7.9 L Phosphorus 2.8 Magnesium 2.1 Total Bilirubin 0.8 AST 36 D ALT 43 Alkaline Phosphatase 82 Total Protein 6.1 L Total Protein (PEP) Albumin 3.0 L Globulin 3.1 Albumin/Globulin Ratio 1.0 ACTH Blood Type Antibody Screen Critical Care Progress Note - Nutrition Nutrition: Nutrition Category Date Time Status Liquid Diet [DIET] Diets 02/06/17 Breakfast Active
[2017-02-09] MEDS: Nitroglycerin 2% Ointment Foilpak UD TOP SCH ×2 (01:36→09:58)
--- NOTE | 2017-02-09 06:54 | PN ---
ENDOCRINOLOGY FOLLOWUP NOTE DATE: LOCATION: ICU room 7. SUBJECTIVE: This is a 76-year-old female with recent admission for right-sided pleuritic pain, right-sided upper abdominal pain and has been evaluated with extensive workup , pulmonary embolism, currently undergoing heparin anticoagulation therapy as given. She was actually initially referred for endocrine evaluation for possible adrenal insufficiency, which was excluded at this time by biochemical testing with normal serum cortisol levels. 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 Her latest chemistry showed the BUN of 7, sodium 132, potassium 4.1, chloride 97, CO2 of 23, glucose 103, albumin 6.5. ACTH level was 21 with a TSH of 1.03 and T4 of 7.22 and the cortisone level of 19.1 mcg/dL. So at this time, we will continue the present medical management and also the IV hydration as given. We will also obtain serum chemistries and supplement accordingly as needed. We will follow and advise accordingly. Marely Raymundo MD
[2017-02-09 07:02] LABS: CHLORIDE 96 mmol/L (98-107); POTASSIUM 3.9 mmol/L (3.6-5.2); SODIUM 132 mmol/L (132-148)
[2017-02-09 07:04] LABS: BILIRUBIN,TOTAL 1.1 mg/dL (0.2-1.3); CARBON DIOXIDE 28 mmol/L (22-30); GFR AFRICAN-AMERICAN > 60
[2017-02-09 07:05] LABS: ALB/GLOB RATIO 0.9 (1.0-2.1); ALKALINE PHOSPHATASE 107 U/L (38-126); ALT/SGPT 47 U/L (9-52); AST/SGOT 29 U/L (14-36); BLOOD UREA NITROGEN 7 mg/dL (7-17); CALCIUM 8.5 mg/dl (8.6-10.4); GLUCOSE,RANDOM 79 mg/dL (65-105); MAGNESIUM 2.2 mg/dL (1.6-2.3); PHOSPHOROUS 3.9 mg/dL (2.5-4.5); TOTAL PROTEIN 6.1 g/dL (6.3-8.3)
[2017-02-09 07:19] LABS: HEMATOCRIT 29.6 % (34.0-47.0); MEAN CELL VOLUME 76.7 fL (81.0-99.0); MEAN CORPUSCULAR HEMOGLOBIN 25.1 pg (27.0-31.0); MEAN CORPUSCULAR HGB CONC 32.7 g/dL (33.0-37.0); MEAN PLATELET VOLUME 9.1 fL (7.2-11.7); PLATELET COUNT 533 K/uL (130-400); RED CELL DISTRIBUTION WIDTH 24.2 % (11.5-14.5); WHITE BLOOD COUNT 5.3 K/uL (4.8-10.8)
--- NOTE | 2017-02-09 09:36 | CP.PCM.PN ---
Subjective - Date & Time of Evaluation Date of Evaluation: 02/08/17 Time of Evaluation: 09:15 - Subjective Subjective: Pt seen w/ family at bedside. Breathing cont to improve Objective - Vital Signs/Intake and Output Vital Signs (last 24 hours): Temp Pulse Resp BP Pulse Ox 98.8 F 67 22 121/68 100 02/09/17 04:00 02/09/17 07:00 02/09/17 07:00 02/09/17 04:01 02/09/17 07:00 Intake and Output: 02/09/17 02/09/17 06:59 18:59 Intake Total 446.8 Output Total 1325 Balance -878.2 - Medications Medications: Current Medications Acetaminophen (Tylenol 325mg Tab) 650 mg PO Q6 PRN PRN Reason: Headache Alprazolam (Xanax) 0.5 mg PO HS PRN PRN Reason: Anxiety Last Admin: 02/08/17 22:59 Dose: 0.5 mg Heparin Sodium/Sodium Chloride (Heparin 79145 Units/250ml 1/2 Normal Saline) 25 ,000 units in 250 mls @ 11.431 mls/hr IV .[id number] PRN; Protocol; 18 UNITS/KG/HR PRN Reason: PROTOCOL Last Admin: 02/08/17 15:38 Dose: 18 units/kg/hr, 11.431 mls/hr Lactulose (Enulose) 20 gm PO Q8H [facility] Last Admin: 02/09/17 04:24 Dose: Not Given Metoclopramide HCl (Reglan) 10 mg IVP Q8H [facility] Last Admin: 02/09/17 01:25 Dose: 10 mg Morphine Sulfate (Morphine) 4 mg IV Q6 PRN PRN Reason: MODERATE PAIN, 4-7 Last Admin: 02/07/17 20:51 Dose: 4 mg Nitroglycerin (Nitro-Bid 2% Oint) 1 ea TOP Q8H [facility] Last Admin: 02/09/17 01:36 Dose: Not Given Pantoprazole Sodium (Protonix Inj) 40 mg IVP DAILY [facility] Last Admin: 02/08/17 09:35 Dose: 40 mg - Labs Labs: 02/09/17 06:49 02/09/17 06:49 PT 13.7 SECONDS (9.7-12.2) H 02/06/17 19:32 INR 1.2 02/06/17 19:32 APTT 49 SECONDS (21-34) H D 02/09/17 06:49 - Constitutional Appears: No Acute Distress - Head Exam Head Exam: NORMAL INSPECTION - Eye Exam Eye Exam: absent: Scleral icterus - ENT Exam ENT Exam: Mucous Membranes Moist - Neck Exam Neck Exam: Full ROM - Respiratory Exam Respiratory Exam: absent: Decreased Breath Sounds - Cardiovascular Exam Cardiovascular Exam: REGULAR RHYTHM - GI/Abdominal Exam GI & Abdominal Exam: Soft - Extremities Exam Extremities Exam: absent: Pedal Edema Assessment and Plan - Assessment and Plan (Free Text) Assessment: Acute PE Plan: Cont Anticoagulation No bleeding
[2017-02-09 09:57] LABS: EOSINOPHIL 7 % (0-4); NEUTROPHIL 60 % (50-75); NUCLEATED RED BLOOD CELL 1 % (0-0); REACTIVE LYMPHOCYTES 3 % (0-0); TOTAL CELLS COUNTED 100
[2017-02-09 09:59] LABS: ACANTHOCYTES SLIGHT; LARGE PLATELETS PRESENT; SPHEROCYTES SLIGHT
[2017-02-09 10:00] LABS: GIANT PLATELETS PRESENT
--- NOTE | 2017-02-09 14:10 | CP.PCM.PN ---
Subjective - Date & Time of Evaluation Date of Evaluation: 02/09/17 Time of Evaluation: 09:00 - Subjective Subjective: 76-year-old female with history of hyperthyroidism, admitted with primary embolism. On anti-coagulation. denies fever chills or cough all cultures thus far negative Bandemia appears to be resolving- likely reactive from PE - etiology of which remains unclear Objective - Vital Signs/Intake and Output Vital Signs (last 24 hours): Temp Pulse Resp BP Pulse Ox 98.2 F 67 22 121/68 100 02/09/17 08:00 02/09/17 07:00 02/09/17 07:00 02/09/17 04:01 02/09/17 07:00 Intake and Output: 02/09/17 02/09/17 06:59 18:59 Intake Total 446.8 345.6 Output Total 1325 525 Balance -878.2 -179.4 - Medications Medications: Current Medications Acetaminophen (Tylenol 325mg Tab) 650 mg PO Q6 PRN PRN Reason: Headache Alprazolam (Xanax) 0.5 mg PO HS PRN PRN Reason: Anxiety Last Admin: 02/08/17 22:59 Dose: 0.5 mg Heparin Sodium/Sodium Chloride (Heparin 32956 Units/250ml 1/2 Normal Saline) 25 ,000 units in 250 mls @ 11.431 mls/hr IV .[id number] PRN; Protocol; 18 UNITS/KG/HR PRN Reason: PROTOCOL Last Admin: 02/08/17 15:38 Dose: 18 units/kg/hr, 11.431 mls/hr Lactulose (Enulose) 20 gm PO DAILY PRN PRN Reason: Constipation Metoclopramide HCl (Reglan) 10 mg IVP Q8H [facility] Last Admin: 02/09/17 09:55 Dose: 10 mg Pantoprazole Sodium (Protonix Ec Tab) 40 mg PO DAILY [facility] - Labs Labs: 02/09/17 06:49 02/09/17 06:49 PT 13.7 SECONDS (9.7-12.2) H 02/06/17 19:32 INR 1.2 02/06/17 19:32 APTT 49 SECONDS (21-34) H D 02/09/17 06:49 - Constitutional Appears: Non-toxic, Chronically Ill - Head Exam Head Exam: ATRAUMATIC, NORMAL INSPECTION, NORMOCEPHALIC - Eye Exam Eye Exam: EOMI, PERRL. absent: Scleral icterus - ENT Exam ENT Exam: Mucous Membranes Dry, Normal External Ear Exam - Neck Exam Neck Exam: Normal Inspection - Respiratory Exam Respiratory Exam: Decreased Breath Sounds, Clear to Ausculation Bilateral - Cardiovascular Exam Cardiovascular Exam: REGULAR RHYTHM, +S1, +S2 - GI/Abdominal Exam GI & Abdominal Exam: Distended, Soft. absent: Tenderness - Rectal Exam Rectal Exam: Deferred - Exam Exam: NORMAL INSPECTION - Extremities Exam Extremities Exam: absent: Calf Tenderness, Pedal Edema - Back Exam Back Exam: absent: CVA tenderness (L), CVA tenderness (R) - Neurological Exam Neurological Exam: Alert, Awake, Oriented x3 - Psychiatric Exam Psychiatric exam: Normal Mood - Skin Skin Exam: Dry, Intact Assessment and Plan (1) Pulmonary embolism Status: Acute (2) Anemia Status: Acute - Assessment and Plan (Free Text) Assessment: cont present management
--- NOTE | 2017-02-09 17:06 | CP.PCM.PN ---
Subjective - Date & Time of Evaluation Date of Evaluation: 02/09/17 Time of Evaluation: 11:30 - Subjective Subjective: No events, breathing improved, improvement in pain on breathing needing about 4 lit o2 via nc, requested sleep aid. Objective - Vital Signs/Intake and Output Vital Signs (last 24 hours): Temp Pulse Resp BP Pulse Ox 98.3 F 67 22 121/68 100 02/09/17 16:00 02/09/17 07:00 02/09/17 07:00 02/09/17 04:01 02/09/17 07:00 Intake and Output: 02/09/17 02/09/17 06:59 18:59 Intake Total 446.8 802.6 Output Total 1325 1350 Balance -878.2 -547.4 - Medications Medications: Current Medications Acetaminophen (Tylenol 325mg Tab) 650 mg PO Q6 PRN PRN Reason: Headache Alprazolam (Xanax) 0.5 mg PO HS PRN PRN Reason: Anxiety Last Admin: 02/08/17 22:59 Dose: 0.5 mg Heparin Sodium/Sodium Chloride (Heparin 64029 Units/250ml 1/2 Normal Saline) 25 ,000 units in 250 mls @ 11.431 mls/hr IV .[id number] PRN; Protocol; 18 UNITS/KG/HR PRN Reason: PROTOCOL Last Admin: 02/08/17 15:38 Dose: 18 units/kg/hr, 11.431 mls/hr Lactulose (Enulose) 20 gm PO DAILY PRN PRN Reason: Constipation Metoclopramide HCl (Reglan) 10 mg IVP Q8H [facility] Last Admin: 02/09/17 16:52 Dose: 10 mg Pantoprazole Sodium (Protonix Ec Tab) 40 mg PO DAILY [facility] - Labs Labs: 02/09/17 06:49 02/09/17 06:49 PT 13.7 SECONDS (9.7-12.2) H 02/06/17 19:32 INR 1.2 02/06/17 19:32 APTT 49 SECONDS (21-34) H D 02/09/17 06:49 - Additional Findings Additional findings: * HEENT ROSE * Neck Supple * Chest Clear * CVS regular, no gallop or rub * PA soft, nt bs present * Ext no edema * [employer] awake oriented x3 * Skin normal turgor Assessment and Plan - Assessment and Plan (Free Text) Assessment: * Multiple subsegmental PE, with improvement in breathing, normal echo Iron def anemia No major DVT Plan: * Heparin drip to continue to change to lovenox, oral factor 10 inhibitor once hemoglobin stable * W/u for hypercoaguable state by hematology * GI prophylaxis * Sleep aid on xanax * Will transfer to tele floor.
--- NOTE | 2017-02-09 21:28 | CP.PCM.PN ---
Subjective - Date & Time of Evaluation Date of Evaluation: 02/09/17 Time of Evaluation: 10:50 - Subjective Subjective: HR controlled SOB cont to improve Objective - Vital Signs/Intake and Output Vital Signs (last 24 hours): Temp Pulse Resp BP Pulse Ox 98.3 F 78 13 122/69 100 02/09/17 16:00 02/09/17 18:00 02/09/17 18:00 02/09/17 16:13 02/09/17 18:00 Intake and Output: 02/09/17 02/10/17 18:59 06:59 Intake Total 802.6 Output Total 1350 Balance -547.4 - Medications Medications: Current Medications Acetaminophen (Tylenol 325mg Tab) 650 mg PO Q6 PRN PRN Reason: Headache Alprazolam (Xanax) 0.5 mg PO HS PRN PRN Reason: Anxiety Last Admin: 02/08/17 22:59 Dose: 0.5 mg Heparin Sodium/Sodium Chloride (Heparin 94629 Units/250ml 1/2 Normal Saline) 25 ,000 units in 250 mls @ 11.431 mls/hr IV .[id number] PRN; Protocol; 18 UNITS/KG/HR PRN Reason: PROTOCOL Last Admin: 02/08/17 15:38 Dose: 18 units/kg/hr, 11.431 mls/hr Lactulose (Enulose) 20 gm PO DAILY PRN PRN Reason: Constipation Metoclopramide HCl (Reglan) 10 mg IVP Q8H [facility] Last Admin: 02/09/17 16:52 Dose: 10 mg Pantoprazole Sodium (Protonix Ec Tab) 40 mg PO DAILY [facility] - Labs Labs: 02/09/17 06:49 02/09/17 06:49 PT 13.7 SECONDS (9.7-12.2) H 02/06/17 19:32 INR 1.2 02/06/17 19:32 APTT 49 SECONDS (21-34) H D 02/09/17 06:49 - Constitutional Appears: Non-toxic - Head Exam Head Exam: NORMAL INSPECTION - Eye Exam Eye Exam: absent: Scleral icterus - ENT Exam ENT Exam: Mucous Membranes Moist - Neck Exam Neck Exam: Full ROM - Respiratory Exam Respiratory Exam: Decreased Breath Sounds - Cardiovascular Exam Cardiovascular Exam: REGULAR RHYTHM - GI/Abdominal Exam GI & Abdominal Exam: Soft, Normal Bowel Sounds - Extremities Exam Extremities Exam: absent: Pedal Edema - Neurological Exam Neurological Exam: Alert, Oriented x3 Assessment and Plan - Assessment and Plan (Free Text) Assessment: Acute PE Plan: Cont anticoagulation Blood transfusion as needed
--- NOTE | 2017-02-09 21:53 | PN ---
DATE: ENDOCRINOLOGY FOLLOWUP NOTE LOCATION: ICU room 7 SUBJECTIVE: This is a 76-year-old female with recent acute pulmonary embolism presenting here with diffuse right upper quadrant pain and supervening right pleuritic chest pain and has been evaluated to have an acute subsegmental pulmonary embolism on the right lung with an associated right pleural effusion and is now undergoing closer hemodynamic monitoring with ongoing heparin anticoagulation therapy as noted. She remains clinically and biochemically euadrenal at this time. LABORATORY DATA: Her latest chemistry showed a BUN of 7, sodium 132, potassium 3.9, chloride 96, CO2 28, glucose 79, and creatinine 0.5. Her serum sodium has improved initially with euvolemic hyponatremia related to SIADH from the underlying acute pulmonary embolism. ASSESSMENT AND PLAN: So at this time, we will continue the present medical management and obtain serial chemistry and supplement according as needed. We will follow with you. Marely Raymundo MD cc:
[2017-02-10 06:30] LABS: MEAN CELL VOLUME 77.1 fL (81.0-99.0); MEAN CORPUSCULAR HEMOGLOBIN 26.4 pg (27.0-31.0); MEAN CORPUSCULAR HGB CONC 34.3 g/dL (33.0-37.0); RED CELL DISTRIBUTION WIDTH 24.4 % (11.5-14.5); WHITE BLOOD COUNT 4.9 K/uL (4.8-10.8)
[2017-02-10 06:48] LABS: CHLORIDE 94 mmol/L (98-107); POTASSIUM 3.9 mmol/L (3.6-5.2); SODIUM 129 mmol/L (132-148)
[2017-02-10 06:51] LABS: ALKALINE PHOSPHATASE 134 U/L (38-126); ALT/SGPT 66 U/L (9-52); AST/SGOT 59 U/L (14-36); BILIRUBIN,TOTAL 0.9 mg/dL (0.2-1.3); BLOOD UREA NITROGEN 7 mg/dL (7-17); CALCIUM 8.5 mg/dl (8.6-10.4); CARBON DIOXIDE 27 mmol/L (22-30); GFR AFRICAN-AMERICAN > 60; GLUCOSE,RANDOM 85 mg/dL (65-105); MAGNESIUM 2.2 mg/dL (1.6-2.3); PHOSPHOROUS 3.9 mg/dL (2.5-4.5); TOTAL PROTEIN 6.1 g/dL (6.3-8.3)
--- NOTE | 2017-02-10 07:46 | PN ---
DATE: ENDOCRINOLOGY FOLLOWUP NOTE SUBJECTIVE: This is a 76-year-old female with sudden onset . He is currently on heparin drip infusion in the ICU for closer hemodynamic monitoring. persistent hyponatremia biochemical testing showing a normal serum cortisol level of . Her latest chemistry showed a BUN of 4, sodium 125, potassium 4.7, chloride 94, 21, glucose 117, and creatinine of 0.4. ASSESSMENT AND PLAN: This is a 76-year-old female with persistent euvolemic hyponatremia management . We will continue the present medical and current management at this point and she will be . We will continue also the IV hydration as given and noted . We will follow up with you. Marely Raymundo MD
--- NOTE | 2017-02-10 08:24 | CP.PCM.PN ---
Subjective - Date & Time of Evaluation Date of Evaluation: 02/10/17 Time of Evaluation: 08:10 - Subjective Subjective: Pt w/ cough, white mucus. Did not sleep well despite Xanax c/o coughing the whole night. No CP, (+) SOB and feels fatigue. Able to eat well; Had bowel movement on Friday as per pt Objective - Vital Signs/Intake and Output Vital Signs (last 24 hours): Temp Pulse Resp BP Pulse Ox 98.6 F 78 13 122/69 100 02/10/17 04:00 02/09/17 18:00 02/09/17 18:00 02/09/17 16:13 02/09/17 18:00 Intake and Output: 02/10/17 02/10/17 06:59 18:59 Intake Total 482 Output Total 1800 Balance -1318 - Medications Medications: Current Medications Acetaminophen (Tylenol 325mg Tab) 650 mg PO Q6 PRN PRN Reason: Headache Alprazolam (Xanax) 0.5 mg PO HS PRN PRN Reason: Anxiety Last Admin: 02/09/17 22:18 Dose: 0.5 mg Heparin Sodium/Sodium Chloride (Heparin 09322 Units/250ml 1/2 Normal Saline) 25 ,000 units in 250 mls @ 11.431 mls/hr IV .[id number] PRN; Protocol; 18 UNITS/KG/HR PRN Reason: PROTOCOL Last Admin: 02/08/17 15:38 Dose: 18 units/kg/hr, 11.431 mls/hr Lactulose (Enulose) 20 gm PO DAILY PRN PRN Reason: Constipation Metoclopramide HCl (Reglan) 10 mg IVP Q8H [facility] Last Admin: 02/10/17 01:35 Dose: Not Given Pantoprazole Sodium (Protonix Ec Tab) 40 mg PO DAILY [facility] - Labs Labs: 02/10/17 06:22 02/10/17 06:23 PT 13.7 SECONDS (9.7-12.2) H 02/06/17 19:32 INR 1.2 02/06/17 19:32 APTT 54 SECONDS (21-34) H D 02/10/17 06:22 - Constitutional Appears: No Acute Distress - Eye Exam Eye Exam: Normal appearance - ENT Exam ENT Exam: Mucous Membranes Moist - Neck Exam Neck Exam: Full ROM. absent: Lymphadenopathy, Tenderness - Respiratory Exam Respiratory Exam: Decreased Breath Sounds, Wheezes. absent: Rales, Rhonchi - GI/Abdominal Exam GI & Abdominal Exam: Soft. absent: Tenderness, Mass - Extremities Exam Extremities Exam: Normal Capillary Refill. absent: Calf Tenderness, Joint Swelling, Pedal Edema Assessment and Plan - Assessment and Plan (Free Text) Assessment: Pulm Emboli; Ac Bronchitis w/ wheezing HTN; constipation For transfer to [facility]
--- NOTE | 2017-02-10 10:40 | CP.PCM.PN ---
Subjective - Date & Time of Evaluation Date of Evaluation: 02/10/17 Time of Evaluation: 08:00 - Subjective Subjective: Pt w/ cough, white mucus. No CP, (+) SOB and feels fatigue. Objective - Vital Signs/Intake and Output Vital Signs (last 24 hours): Temp Pulse Resp BP Pulse Ox 98.2 F 71 23 125/63 100 02/10/17 08:00 02/10/17 08:00 02/10/17 08:00 02/10/17 04:01 02/10/17 08:00 Intake and Output: 02/10/17 02/10/17 06:59 18:59 Intake Total 482 Output Total 1800 Balance -1318 - Medications Medications: Current Medications Acetaminophen (Tylenol 325mg Tab) 650 mg PO Q6 PRN PRN Reason: Headache Albuterol/Ipratropium (Duoneb 3 Mg/0.5 Mg (3 Ml) Ud) 3 ml INH RQID [facility] Alprazolam (Xanax) 0.5 mg PO HS PRN PRN Reason: Anxiety Last Admin: 02/09/17 22:18 Dose: 0.5 mg Heparin Sodium/Sodium Chloride (Heparin 24448 Units/250ml 1/2 Normal Saline) 25 ,000 units in 250 mls @ 11.431 mls/hr IV .[id number] PRN; Protocol; 18 UNITS/KG/HR PRN Reason: PROTOCOL Last Admin: 02/08/17 15:38 Dose: 18 units/kg/hr, 11.431 mls/hr Lactulose (Enulose) 20 gm PO DAILY PRN PRN Reason: Constipation Metoclopramide HCl (Reglan) 10 mg IVP Q8H [facility] Last Admin: 02/10/17 01:35 Dose: Not Given Pantoprazole Sodium (Protonix Ec Tab) 40 mg PO DAILY [facility] - Labs Labs: 02/10/17 06:22 02/10/17 06:23 PT 13.7 SECONDS (9.7-12.2) H 02/06/17 19:32 INR 1.2 02/06/17 19:32 APTT 54 SECONDS (21-34) H D 02/10/17 06:22 - Constitutional Appears: Non-toxic, Chronically Ill - Head Exam Head Exam: NORMOCEPHALIC - Eye Exam Eye Exam: PERRL - ENT Exam ENT Exam: Mucous Membranes Dry - Neck Exam Neck Exam: absent: Lymphadenopathy - Respiratory Exam Respiratory Exam: Decreased Breath Sounds - Cardiovascular Exam Cardiovascular Exam: REGULAR RHYTHM - GI/Abdominal Exam GI & Abdominal Exam: Distended, Soft - Rectal Exam Rectal Exam: Deferred Assessment and Plan (1) Pulmonary embolism Status: Acute (2) Anemia Status: Acute - Assessment and Plan (Free Text) Assessment: cont anticoag heme eval check echo if not done yet
[2017-02-10] MEDS: Pantoprazole 40 mg EC Tab PO SCH (10:59)
[2017-02-10 11:07] LABS: EOS # 0.1 K/uL (0.0-0.7); LYMPH # 0.7 K/uL (1.0-4.3); MONO # 0.2 K/uL (0.0-0.8)
[2017-02-10] MEDS: Albuterol-Ipratrop 3 mg / 0.5 (3 ml) UD INH SCH ×4 (11:16→19:26)
[2017-02-10] MEDS: Heparin25000 units/250ml 1/2NS 25,000 UNITS/250 ML BAG IV PRN (13:49)
--- NOTE | 2017-02-10 15:17 | PN ---
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 Moreover, she was found to have CAT scan evidence of acute adrenalitis, but her biochemical workup shows normal cortisol and ACTH and she remains clinically euadrenal at this time. Moreover, she also was found to have an acute pulmonary embolism and is receiving ongoing heparin anticoagulation therapy as noted. Her latest chemistry shows BUN of 7, sodium 129, potassium 3.9, chloride 94, CO2 of 27, glucose 85 and creatinine 0.5. So, at this time, we will continue the present medical management and also the serial chemistries to be obtained and we will supplement accordingly as needed. We will follow and advise accordingly Marely Raymundo MD
--- NOTE | 2017-02-10 19:20 | CP.PCM.PN ---
Subjective - Date & Time of Evaluation Date of Evaluation: 02/10/17 Time of Evaluation: 08:15 - Subjective Subjective: cont to improve clinically less sob no bleeding Objective - Vital Signs/Intake and Output Vital Signs (last 24 hours): Temp Pulse Resp BP Pulse Ox 98.1 F 71 20 120/73 99 02/10/17 15:30 02/10/17 15:30 02/10/17 15:30 02/10/17 15:30 02/10/17 15:30 Intake and Output: 02/10/17 02/11/17 18:59 06:59 Intake Total 260 Output Total 1650 Balance -1390 - Medications Medications: Current Medications Acetaminophen (Tylenol 325mg Tab) 650 mg PO Q6 PRN PRN Reason: Headache Albuterol/Ipratropium (Duoneb 3 Mg/0.5 Mg (3 Ml) Ud) 3 ml INH RQID [facility] Last Admin: 02/10/17 16:46 Dose: 3 ml Alprazolam (Xanax) 0.5 mg PO HS PRN PRN Reason: Anxiety Last Admin: 02/09/17 22:18 Dose: 0.5 mg Heparin Sodium/Sodium Chloride (Heparin 60780 Units/250ml 1/2 Normal Saline) 25 ,000 units in 250 mls @ 11.431 mls/hr IV .[id number] PRN; Protocol; 18 UNITS/KG/HR PRN Reason: PROTOCOL Last Admin: 02/10/17 13:49 Dose: 18 units/kg/hr, 11.431 mls/hr Lactulose (Enulose) 20 gm PO DAILY PRN PRN Reason: Constipation Metoclopramide HCl (Reglan) 10 mg IVP Q8H [facility] Last Admin: 02/10/17 18:02 Dose: 10 mg Pantoprazole Sodium (Protonix Ec Tab) 40 mg PO DAILY [facility] Last Admin: 02/10/17 10:59 Dose: 40 mg - Labs Labs: 02/10/17 06:22 02/10/17 06:23 PT 13.7 SECONDS (9.7-12.2) H 02/06/17 19:32 INR 1.2 02/06/17 19:32 APTT 54 SECONDS (21-34) H D 02/10/17 06:22 - Constitutional Appears: Non-toxic - Head Exam Head Exam: NORMAL INSPECTION - Eye Exam Eye Exam: absent: Scleral icterus - ENT Exam ENT Exam: Mucous Membranes Moist - Neck Exam Neck Exam: Full ROM - Respiratory Exam Respiratory Exam: NORMAL BREATHING PATTERN - Cardiovascular Exam Cardiovascular Exam: REGULAR RHYTHM - GI/Abdominal Exam GI & Abdominal Exam: Soft
[2017-02-10 21:11] LABS: BETA 1 GLOBULIN 0.3 g/dL (0.4-0.6); BETA 2 GLOBULIN 0.4 g/dL (0.2-0.5); GAMMA GLOBULIN 1.2 g/dL (0.8-1.7)
[2017-02-11] MEDS ORDERED: Heparin25000 units/250ml 1/2NS 25,000 UNITS/250 ML BAG IV PRN ×3 (04:00→16:22)
[2017-02-11] MEDS: Albuterol-Ipratrop 3 mg / 0.5 (3 ml) UD INH SCH ×4 (07:54→20:40)
[2017-02-11 08:04] LABS: CHLORIDE 95 mmol/L (98-107); SODIUM 134 mmol/L (132-148)
[2017-02-11 08:06] LABS: BILIRUBIN,TOTAL 0.9 mg/dL (0.2-1.3); CARBON DIOXIDE 29 mmol/L (22-30); GFR AFRICAN-AMERICAN > 60
[2017-02-11 08:07] LABS: ALKALINE PHOSPHATASE 138 U/L (38-126); ALT/SGPT 83 U/L (9-52); AST/SGOT 69 U/L (14-36); BLOOD UREA NITROGEN 9 mg/dL (7-17); CALCIUM 8.7 mg/dl (8.6-10.4); GLUCOSE,RANDOM 87 mg/dL (65-105); MAGNESIUM 2.2 mg/dL (1.6-2.3); PHOSPHOROUS 3.7 mg/dL (2.5-4.5); TOTAL PROTEIN 6.8 g/dL (6.3-8.3)
[2017-02-11 08:32] LABS: HEMATOCRIT 32.7 % (34.0-47.0); MEAN CELL VOLUME 77.1 fL (81.0-99.0); MEAN CORPUSCULAR HEMOGLOBIN 25.7 pg (27.0-31.0); MEAN CORPUSCULAR HGB CONC 33.3 g/dL (33.0-37.0); MEAN PLATELET VOLUME 8.7 fL (7.2-11.7); RED CELL DISTRIBUTION WIDTH 24.9 % (11.5-14.5); WHITE BLOOD COUNT 4.9 K/uL (4.8-10.8)
[2017-02-11] MEDS ORDERED: Magnesium Hydroxide Susp 30 ml UD PO ONE (08:53)
--- NOTE | 2017-02-11 08:58 | CP.PCM.PN ---
Subjective - Date & Time of Evaluation Date of Evaluation: 02/11/17 Time of Evaluation: 08:32 - Subjective Subjective: Pt no bowel 4 days. No CP, no SOB, no palpitation, no edema. Cough is much less. Able to sleep well but awaken c/o activity in the floor. (+) pain on both side is there but much less. No more nausea/ vomiting Objective - Vital Signs/Intake and Output Vital Signs (last 24 hours): Temp Pulse Resp BP Pulse Ox 97 F L 75 20 116/67 97 02/10/17 23:55 02/10/17 23:55 02/10/17 23:55 02/10/17 23:55 02/10/17 23:55 - Medications Medications: Current Medications Acetaminophen (Tylenol 325mg Tab) 650 mg PO Q6 PRN PRN Reason: Headache Albuterol/Ipratropium (Duoneb 3 Mg/0.5 Mg (3 Ml) Ud) 3 ml INH RQID [facility] Last Admin: 02/11/17 07:54 Dose: 3 ml Alprazolam (Xanax) 0.5 mg PO HS PRN PRN Reason: Anxiety Last Admin: 02/11/17 01:13 Dose: 0.5 mg Heparin Sodium/Sodium Chloride (Heparin 65485 Units/250ml 1/2 Normal Saline) 25 ,000 units in 250 mls @ 11.431 mls/hr IV .[id number] PRN; Protocol; 18 UNITS/KG/HR PRN Reason: PROTOCOL Last Admin: 02/11/17 08:18 Dose: 18 units/kg/hr, 11.431 mls/hr Lactulose (Enulose) 20 gm PO DAILY PRN PRN Reason: Constipation Magnesium Hydroxide (Milk Of Magnesia) 30 ml PO ONCE ONE Stop: 02/11/17 08:54 Metoclopramide HCl (Reglan) 10 mg IVP Q8H [facility] Last Admin: 02/11/17 01:18 Dose: 10 mg Pantoprazole Sodium (Protonix Ec Tab) 40 mg PO DAILY [facility] Last Admin: 02/10/17 10:59 Dose: 40 mg - Labs Labs: 02/11/17 07:25 02/11/17 07:25 PT 13.7 SECONDS (9.7-12.2) H 02/06/17 19:32 INR 1.2 02/06/17 19:32 APTT 100 SECONDS (21-34) H* D 02/11/17 07:25 - Eye Exam Eye Exam: Normal appearance - ENT Exam ENT Exam: Mucous Membranes Moist - Neck Exam Neck Exam: Full ROM, Normal Inspection. absent: Lymphadenopathy - Respiratory Exam Respiratory Exam: Decreased Breath Sounds, Wheezes. absent: Rales, Rhonchi - Cardiovascular Exam Cardiovascular Exam: REGULAR RHYTHM, +S1, +S2, Murmur. absent: Gallop, JVD - GI/Abdominal Exam GI & Abdominal Exam: Soft. absent: Tenderness, Hernia, Mass - Extremities Exam Extremities Exam: Full ROM, Normal Capillary Refill, Normal Inspection. absent : Calf Tenderness, Joint Swelling - Back Exam Back Exam: absent: muscle spasm, paraspinal tenderness, rash noted Assessment and Plan - Assessment and Plan (Free Text) Assessment: Pulmonary Embolism; raisa adrenitis HTN; Stop Reglan; endo f/up Cont meds ? convert to oral anticoagulant
[2017-02-11 09:57] LABS: EOS # 0.2 K/uL (0.0-0.7); LYMPH # 1.3 K/uL (1.0-4.3); MONO # 0.3 K/uL (0.0-0.8)
[2017-02-11] MEDS: Pantoprazole 40 mg EC Tab PO SCH (10:08)
--- NOTE | 2017-02-11 12:28 | CP.PCM.PN ---
Subjective - Date & Time of Evaluation Date of Evaluation: 02/11/17 Time of Evaluation: 09:00 - Subjective Subjective: BANDEMIA RESOLVED IV RX IN PROGRESS Objective - Vital Signs/Intake and Output Vital Signs (last 24 hours): Temp Pulse Resp BP Pulse Ox 98.6 F 71 20 125/73 96 02/11/17 09:14 02/11/17 09:14 02/11/17 09:14 02/11/17 09:14 02/11/17 09:14 - Medications Medications: Current Medications Albuterol/Ipratropium (Duoneb 3 Mg/0.5 Mg (3 Ml) Ud) 3 ml INH RQID [facility] Last Admin: 02/11/17 11:45 Dose: 3 ml Alprazolam (Xanax) 0.5 mg PO HS PRN PRN Reason: Anxiety Last Admin: 02/11/17 01:13 Dose: 0.5 mg Heparin Sodium/Sodium Chloride (Heparin 21241 Units/250ml 1/2 Normal Saline) 25 ,000 units in 250 mls @ 11.431 mls/hr IV .[id number] PRN; Protocol; 18 UNITS/KG/HR PRN Reason: PROTOCOL Last Admin: 02/11/17 08:18 Dose: 18 units/kg/hr, 11.431 mls/hr Pantoprazole Sodium (Protonix Ec Tab) 40 mg PO DAILY [facility] Last Admin: 02/11/17 10:08 Dose: 40 mg - Labs Labs: 02/11/17 07:25 02/11/17 07:25 PT 13.7 SECONDS (9.7-12.2) H 02/06/17 19:32 INR 1.2 02/06/17 19:32 APTT 39 SECONDS (21-34) H D 02/11/17 10:00 - Constitutional Appears: Non-toxic, Chronically Ill - Head Exam Head Exam: NORMOCEPHALIC - Eye Exam Eye Exam: PERRL - ENT Exam ENT Exam: Mucous Membranes Dry - Neck Exam Neck Exam: absent: Lymphadenopathy - Respiratory Exam Respiratory Exam: Decreased Breath Sounds - Cardiovascular Exam Cardiovascular Exam: REGULAR RHYTHM - GI/Abdominal Exam GI & Abdominal Exam: Distended, Soft Assessment and Plan (1) Pulmonary embolism Status: Acute (2) Anemia Status: Acute - Assessment and Plan (Free Text) Assessment: BANDEMIA RESOLVED OK TO D/C IV ANTIBIOTICS IF OK WITH DR BLACK
--- NOTE | 2017-02-11 15:38 | VASCLAB ---
PROCEDURE: Lower Extremity Venous Duplex Exam. HISTORY: Leg pain PRIORS: None. TECHNIQUE: Bilateral common femoral, femoral, popliteal and posterior tibial, peroneal and great saphenous veins were evaluated. Flow was assessed with color Doppler, compressibility, assessment of phasic flow and augmentation response. Report prepared by SARAH Florence, RVT FINDINGS: RIGHT: 1. Common Femoral Vein: 1.1. Compressibility - Fully compressible: Thrombus - None : Flow - Phasic: Augmentation -Normal: Reflux - None. 2. Femoral Vein: 2.1. Compressibility - Fully compressible: Thrombus - None : Flow - Phasic: Augmentation -Normal: Reflux - None. 3. Popliteal Vein: 3.1. Compressibility - Fully compressible: Thrombus - None : Flow - Phasic: Augmentation -Normal: Reflux - None. 4. Posterior Tibial Vein: 4.1. Compressibility - Fully compressible: Thrombus - None: Flow - Phasic: Augmentation -Normal: Reflux - None. 5. Peroneal Vein: 5.1. Compressibility - Fully compressible: Thrombus - None: Flow - Phasic: Augmentation -Normal: Reflux - None. 6. Great Saphenous Vein: 6.1. Compressibility - Fully compressible: Thrombus - None: Flow - Phasic: Augmentation - Normal: Reflux - None. LEFT: 1. Common Femoral Vein: 1.1. Compressibility - Fully compressible: Thrombus - None: Flow - Phasic: Augmentation -Normal: Reflux - None. 2. Femoral Vein: 2.1. Compressibility - Fully compressible: Thrombus - None: Flow - Phasic: Augmentation -Normal: Reflux - None. 3. Popliteal Vein: 3.1. Compressibility - Fully compressible: Thrombus - None : Flow - Phasic: Augmentation -Normal: Reflux - Severe. 4. Posterior Tibial Vein: 4.1. Compressibility - Fully compressible: Thrombus - None: Flow - Phasic: Augmentation -Normal: Reflux - None. 5. Peroneal Vein: 5.1. Compressibility - Fully compressible: Thrombus - None: Flow - Phasic: Augmentation -Normal: Reflux - None. 6. Great Saphenous Vein: 6.1. Compressibility - Fully compressible: Thrombus - None: Flow - Phasic: Augmentation - Normal: Reflux - None. OTHER FINDINGS: Right: None significant. Left: Severe valvular incompetence of the left popliteal and peroneal veins. IMPRESSION: Right: No evidence of deep or superficial vein thrombosis of the right lower extremity. Normal valve function noted of the right side. Left: No evidence of deep or superficial vein thrombosis of the left lower extremity.
--- NOTE | 2017-02-11 16:36 | PN ---
ENDOCRINOLOGY FOLLOWUP NOTE DATE: LOCATION: Room 569. This is a 76-year-old female, presenting here with euvolemic hyponatremia related to SIADH, which was actually on further evaluation related to pulmonary embolism and is currently undergoing heparin anticoagulation therapy as noted. Her chest and upper abdominal pain have subsided at this time as noted. Her latest chemistry showed a BUN of 9, sodium 134, potassium 4, chloride 95, CO2 of 29, glucose 87, and creatinine 0.6. So, at this time, we will continue the present medical management and obtain serial chemistries and supplement accordingly as needed. We will follow and advise accordingly. Marely Raymundo MD
--- NOTE | 2017-02-11 16:46 | CP.PCM.PN ---
Subjective - Date & Time of Evaluation Date of Evaluation: 02/11/17 Time of Evaluation: 16:37 - Subjective Subjective: The patient looks much better, less pain, ambulatory, increased frequency of bowel movements, but now off the MOM. Improved appetite, no nausea, vomiting, abdominal pain Objective - Vital Signs/Intake and Output Vital Signs (last 24 hours): Temp Pulse Resp BP Pulse Ox 97.3 F L 77 20 121/71 98 02/11/17 16:00 02/11/17 16:23 02/11/17 16:00 02/11/17 16:00 02/11/17 16:00 Intake and Output: 02/11/17 02/11/17 06:59 18:59 Output Total 1000 Balance -1000 - Medications Medications: Current Medications Albuterol/Ipratropium (Duoneb 3 Mg/0.5 Mg (3 Ml) Ud) 3 ml INH RQID [facility] Last Admin: 02/11/17 11:45 Dose: 3 ml Alprazolam (Xanax) 0.5 mg PO HS PRN PRN Reason: Anxiety Last Admin: 02/11/17 01:13 Dose: 0.5 mg Heparin Sodium/Sodium Chloride (Heparin 70281 Units/250ml 1/2 Normal Saline) 25 ,000 units in 250 mls @ 13.154 mls/hr IV .Q19H1M PRN; Protocol; 20 UNITS/KG/HR PRN Reason: ADJUST RATE PER PROTOCOL Pantoprazole Sodium (Protonix Ec Tab) 40 mg PO DAILY [facility] Last Admin: 02/11/17 10:08 Dose: 40 mg - Labs Labs: 02/11/17 07:25 02/11/17 07:25 PT 13.7 SECONDS (9.7-12.2) H 02/06/17 19:32 INR 1.2 02/06/17 19:32 APTT 40 SECONDS (21-34) H 02/11/17 14:09 Assessment and Plan (1) Anemia Assessment & Plan: 76 yo woman with anemia, thrombocytosis, most likely reactive, but because of the presence of early WBCs in the periphery will need a bone marrow biopsy at some point. For now will order a hypercoagulable work up, continue heparin, will need to cross over to NOAC. New increased LFTs , will repeat in AM. Above discussed with patient and family Status: Acute
--- NOTE | 2017-02-11 17:47 | CP.PCM.PN ---
Subjective - Date & Time of Evaluation Date of Evaluation: 02/11/17 Time of Evaluation: 08:30 - Subjective Subjective: continue to improved bandemia removed breathing better Objective - Vital Signs/Intake and Output Vital Signs (last 24 hours): Temp Pulse Resp BP Pulse Ox 97.3 F L 77 20 121/71 98 02/11/17 16:00 02/11/17 16:23 02/11/17 16:00 02/11/17 16:00 02/11/17 16:00 Intake and Output: 02/11/17 02/11/17 06:59 18:59 Output Total 1000 Balance -1000 - Medications Medications: Current Medications Albuterol/Ipratropium (Duoneb 3 Mg/0.5 Mg (3 Ml) Ud) 3 ml INH RQID [facility] Last Admin: 02/11/17 11:45 Dose: 3 ml Alprazolam (Xanax) 0.5 mg PO HS PRN PRN Reason: Anxiety Last Admin: 02/11/17 01:13 Dose: 0.5 mg Heparin Sodium/Sodium Chloride (Heparin 71040 Units/250ml 1/2 Normal Saline) 25 ,000 units in 250 mls @ 13.154 mls/hr IV .Q19H1M PRN; Protocol; 20 UNITS/KG/HR PRN Reason: ADJUST RATE PER PROTOCOL Last Admin: 02/11/17 17:23 Dose: 20 units/kg/hr, 13.154 mls/hr Pantoprazole Sodium (Protonix Ec Tab) 40 mg PO DAILY [facility] Last Admin: 02/11/17 10:08 Dose: 40 mg - Labs Labs: 02/11/17 07:25 02/11/17 07:25 PT 13.7 SECONDS (9.7-12.2) H 02/06/17 19:32 INR 1.2 02/06/17 19:32 APTT 40 SECONDS (21-34) H 02/11/17 14:09 - Constitutional Appears: Non-toxic - Head Exam Head Exam: ATRAUMATIC - Eye Exam Eye Exam: absent: Scleral icterus Pupil Exam: NORMAL ACCOMODATION - ENT Exam ENT Exam: Mucous Membranes Moist - Neck Exam Neck Exam: Full ROM - Respiratory Exam Respiratory Exam: NORMAL BREATHING PATTERN - Cardiovascular Exam Cardiovascular Exam: REGULAR RHYTHM - GI/Abdominal Exam GI & Abdominal Exam: Soft - Extremities Exam Extremities Exam: Pedal Edema. absent: Calf Tenderness Assessment and Plan - Assessment and Plan (Free Text) Assessment: Acute PE Plan: Cont anticoagulation
[2017-02-12] MEDS ORDERED: Heparin25000 units/250ml 1/2NS 25,000 UNITS/250 ML BAG IV PRN (00:15)
[2017-02-12 04:00] LABS: BASO # 0.1 K/uL (0.0-0.2); EOS # 0.2 K/uL (0.0-0.7); EOS % 4.8 % (0.0-4.0); HEMATOCRIT 29.1 % (34.0-47.0); LYMPH # 2.6 K/uL (1.0-4.3); LYMPH % 59.9 % (20.0-40.0); MEAN CELL VOLUME 76.5 fL (81.0-99.0); MEAN CORPUSCULAR HEMOGLOBIN 25.5 pg (27.0-31.0); MEAN CORPUSCULAR HGB CONC 33.3 g/dL (33.0-37.0); MONO % 0.5 % (0.0-10.0); NRBC % 0.3 % (0.0-2.0); RED CELL DISTRIBUTION WIDTH 25.7 % (11.5-14.5); WHITE BLOOD COUNT 4.3 K/uL (4.8-10.8)
[2017-02-12 04:43] LABS: CHLORIDE 98 mmol/L (98-107); SODIUM 131 mmol/L (132-148)
[2017-02-12 04:45] LABS: ALB/GLOB RATIO 0.9 (1.0-2.1); ALKALINE PHOSPHATASE 109 U/L (38-126); AST/SGOT 71 U/L (14-36); BILIRUBIN,TOTAL 0.9 mg/dL (0.2-1.3); BLOOD UREA NITROGEN 10 mg/dL (7-17); CARBON DIOXIDE 26 mmol/L (22-30); GFR AFRICAN-AMERICAN > 60; TOTAL PROTEIN 7.1 g/dL (6.3-8.3)
[2017-02-12 04:46] LABS: ALT/SGPT 67 U/L (9-52); CALCIUM 8.3 mg/dl (8.6-10.4); GLUCOSE,RANDOM 91 mg/dL (65-105); MAGNESIUM 2.3 mg/dL (1.6-2.3); PHOSPHOROUS 3.6 mg/dL (2.5-4.5); POTASSIUM 4.7 mmol/L (3.6-5.2)
[2017-02-12] MEDS: Albuterol-Ipratrop 3 mg / 0.5 (3 ml) UD INH SCH ×4 (07:18→20:02)
--- NOTE | 2017-02-12 08:26 | CP.PCM.PN ---
Subjective - Date & Time of Evaluation Date of Evaluation: 02/12/17 Time of Evaluation: 08:15 - Subjective Subjective: patient no complain; no CP, no SOB, (+) Cough w/ yellowish mucus now. Had bowel movement and appetite is well. Objective - Vital Signs/Intake and Output Vital Signs (last 24 hours): Temp Pulse Resp BP Pulse Ox 98.3 F 82 20 125/75 96 02/11/17 23:30 02/11/17 23:30 02/11/17 23:30 02/11/17 23:30 02/11/17 23:30 Intake and Output: 02/12/17 02/12/17 06:59 18:59 Intake Total 50 Balance 50 - Medications Medications: Current Medications Albuterol/Ipratropium (Duoneb 3 Mg/0.5 Mg (3 Ml) Ud) 3 ml INH RQID [facility] Last Admin: 02/12/17 07:18 Dose: 3 ml Alprazolam (Xanax) 0.5 mg PO HS PRN PRN Reason: Anxiety Last Admin: 02/11/17 01:13 Dose: 0.5 mg Apixaban (Eliquis) 5 mg PO DAILY [facility] Doxycycline Hyclate (Doryx) 100 mg PO Q12H [facility] Heparin Sodium/Sodium Chloride (Heparin 24838 Units/250ml 1/2 Normal Saline) 25 ,000 units in 250 mls @ 11.181 mls/hr IV .[id number] PRN; Protocol; 17 UNITS/KG/HR PRN Reason: ADJUST RATE PER PROTOCOL Last Admin: 02/12/17 00:04 Dose: 17 units/kg/hr, 11.181 mls/hr Pantoprazole Sodium (Protonix Ec Tab) 40 mg PO DAILY [facility] Last Admin: 02/11/17 10:08 Dose: 40 mg - Labs Labs: 02/12/17 03:35 02/12/17 03:35 PT 13.7 SECONDS (9.7-12.2) H 02/06/17 19:32 INR 1.2 02/06/17 19:32 APTT 51 SECONDS (21-34) H D 02/12/17 04:03 - Constitutional Appears: No Acute Distress - Eye Exam Eye Exam: Normal appearance. absent: Periorbital swelling - ENT Exam ENT Exam: Mucous Membranes Moist - Neck Exam Neck Exam: Full ROM. absent: Lymphadenopathy, Normal Inspection, Thyromegaly - Respiratory Exam Respiratory Exam: Decreased Breath Sounds, Rales, Wheezes. absent: Rhonchi - Cardiovascular Exam Cardiovascular Exam: +S1, +S2. absent: Gallop, Murmur - GI/Abdominal Exam GI & Abdominal Exam: Soft. absent: Tenderness, Mass - Extremities Exam Extremities Exam: Full ROM, Normal Capillary Refill. absent: Calf Tenderness, Joint Swelling, Pedal Edema Assessment and Plan - Assessment and Plan (Free Text) Assessment: Pulm Emboli; HTN Ac Bronchitis ? early pneumonia Start doxy and check CXR Will change to Eliquis For Subacute eval
--- NOTE | 2017-02-12 09:00 | RAD ---
HISTORY: wheeze and ? rales on right base COMPARISON: Portable chest 02/06/2017. FINDINGS: LUNGS: Stable limited right basilar atelectasis or infiltrate, minimal in overall volume. None is seen the left. PLEURA: Trace right pleural effusion is not excluded. None is seen the left. No pneumothorax bilaterally. CARDIOVASCULAR: Cardiac silhouette is stable. No pulmonary derangement. OSSEOUS STRUCTURES: No significant abnormalities. VISUALIZED UPPER ABDOMEN: Normal. OTHER FINDINGS: None. IMPRESSION: Generally stable appearing chest radiograph with trace right better basilar atelectasis or infiltrate are again identified with trace right pleural effusion not excluded. Continued clinical and radiographic monitoring are advised.
[2017-02-12] MEDS: Pantoprazole 40 mg EC Tab PO SCH (10:03)
--- NOTE | 2017-02-12 16:10 | PN ---
DATE: ENDOCRINOLOGY FOLLOWUP NOTE LOCATION: Room 569. This is a 76-year-old female, presenting here with euvolemic hyponatremia related to SIADH, which was actually related to the acute pulmonary embolism as noted thereof. She has ongoing heparin anticoagulation therapy as given and noted. Her electrolytes have remained low normal as noted, but improved accordingly. The latest chemistry showed a BUN of 10, sodium 131, potassium 4.7, chloride 98, CO2 of 26, glucose 91, and creatinine 0.5. Her repeat thyroid study showed a T4 of 7.22 with a TSH of 1.03 and a serum cortisol of 19.1 and an ACTH of 21 as noted. So, at this time, the patient will not need any kind of thyroid or steroid hormonal replacement. We should expect improvement of her serum sodium as the SIADH improves from the intercurrent pulmonary condition as mentioned. We will obtain serial chemistry and supplement accordingly as needed. We will follow with you. Marely Raymundo MD
--- NOTE | 2017-02-13 08:38 | CP.PCM.PN ---
Subjective - Date & Time of Evaluation Date of Evaluation: 02/13/17 Time of Evaluation: 08:25 - Subjective Subjective: Pt feels well; Walk to corridor w/ daughter as per pt Cough is much better. No CP, no SOB, no edema Pain on back is also much better Objective - Vital Signs/Intake and Output Vital Signs (last 24 hours): Temp Pulse Resp BP Pulse Ox 98.2 F 83 20 118/73 98 02/13/17 08:00 02/13/17 08:00 02/13/17 08:00 02/13/17 08:00 02/13/17 08:00 Intake and Output: 02/13/17 02/13/17 06:59 18:59 Intake Total 490 Balance 490 - Medications Medications: Current Medications Albuterol/Ipratropium (Duoneb 3 Mg/0.5 Mg (3 Ml) Ud) 3 ml INH RQID [facility] Last Admin: 02/12/17 20:02 Dose: 3 ml Alprazolam (Xanax) 0.5 mg PO HS PRN PRN Reason: Anxiety Last Admin: 02/11/17 01:13 Dose: 0.5 mg Apixaban (Eliquis) 5 mg PO DAILY [facility] Last Admin: 02/12/17 11:00 Dose: 5 mg Doxycycline Hyclate (Doryx) 100 mg PO Q12H [facility] Last Admin: 02/12/17 21:02 Dose: 100 mg Pantoprazole Sodium (Protonix Ec Tab) 40 mg PO DAILY [facility] Last Admin: 02/12/17 10:03 Dose: 40 mg - Labs Labs: 02/12/17 03:35 02/12/17 03:35 PT 13.7 SECONDS (9.7-12.2) H 02/06/17 19:32 INR 1.2 02/06/17 19:32 APTT 33 SECONDS (21-34) D 02/12/17 11:39 - Constitutional Appears: No Acute Distress - Eye Exam Eye Exam: Normal appearance - ENT Exam ENT Exam: Mucous Membranes Moist - Neck Exam Neck Exam: Full ROM. absent: Normal Inspection, Thyromegaly - Respiratory Exam Respiratory Exam: Clear to Ausculation Bilateral. absent: Rales, Rhonchi, Wheezes - Cardiovascular Exam Cardiovascular Exam: REGULAR RHYTHM, +S1, +S2, Murmur. absent: Gallop, JVD - GI/Abdominal Exam GI & Abdominal Exam: Soft. absent: Tenderness, Mass - Extremities Exam Extremities Exam: Full ROM, Normal Capillary Refill. absent: Calf Tenderness, Joint Swelling, Pedal Edema Assessment and Plan - Assessment and Plan (Free Text) Assessment: Pulm emboli; unsteady Gait Ac Bronchitis; HTN Stop Pantopazole For subacute if family agrees Cont all other meds
[2017-02-13] MEDS: Albuterol-Ipratrop 3 mg / 0.5 (3 ml) UD INH SCH ×4 (08:52→19:29)
--- NOTE | 2017-02-13 13:10 | PN ---
ENDOCRINOLOGY FOLLOWUP NOTE DATE: LOCATION: Room 569. This is a 76-year-old female with sudden onset of right upper quadrant pain and right-sided pleuritic chest pain, admitted here for comprehensive workup, which shows the presence of euvolemic hyponatremia and eventual diagnosis of acute pulmonary embolism. She received heparin infusion therapy for anticoagulation and has since then been switched over to Eliquis today at 5 mg b.i.d. as ordered. She remains clinically and biochemically euadrenal and euthyroid at this time. Her latest chemistries showed a BUN of 10, sodium 131, potassium 4.7, chloride 98, CO2 26, glucose 91, and creatinine 0.5. Her serum cortisol and thyroid studies have remained normal as noted. So at this time, we will continue the present medical management and we will obtain serum chemistries and supplement accordingly as needed. We will follow with you. Marely Raymundo MD
[2017-02-14] MEDS: Albuterol-Ipratrop 3 mg / 0.5 (3 ml) UD INH SCH ×4 (07:12→20:03)
[2017-02-14 08:12] VITALS: RESP 20
--- NOTE | 2017-02-14 08:13 | CP.PCM.PN ---
Subjective - Date & Time of Evaluation Date of Evaluation: 02/14/17 Time of Evaluation: 08:00 - Subjective Subjective: Pt no complain; Feels well. No CP, no SOB, no edema, no more low back pain. Objective - Vital Signs/Intake and Output Vital Signs (last 24 hours): Temp Pulse Resp BP Pulse Ox 98.2 F 72 18 116/70 98 02/14/17 00:00 02/14/17 03:37 02/14/17 00:00 02/14/17 00:00 02/14/17 00:00 Intake and Output: 02/14/17 02/14/17 06:59 18:59 Intake Total 500 Balance 500 - Medications Medications: Current Medications Albuterol/Ipratropium (Duoneb 3 Mg/0.5 Mg (3 Ml) Ud) 3 ml INH RQID [facility] Last Admin: 02/14/17 07:12 Dose: 3 ml Alprazolam (Xanax) 0.5 mg PO HS PRN PRN Reason: Anxiety Last Admin: 02/11/17 01:13 Dose: 0.5 mg Apixaban (Eliquis) 5 mg PO BID [facility] Last Admin: 02/13/17 19:09 Dose: 5 mg Doxycycline Hyclate (Doryx) 100 mg PO Q12H [facility] Last Admin: 02/13/17 20:52 Dose: 100 mg - Labs Labs: 02/12/17 03:35 02/12/17 03:35 PT 13.7 SECONDS (9.7-12.2) H 02/06/17 19:32 INR 1.2 02/06/17 19:32 APTT 33 SECONDS (21-34) D 02/12/17 11:39 - Constitutional Appears: No Acute Distress - Eye Exam Eye Exam: Normal appearance - ENT Exam ENT Exam: Mucous Membranes Moist - Neck Exam Neck Exam: Full ROM. absent: Lymphadenopathy, Normal Inspection - Respiratory Exam Respiratory Exam: Clear to Ausculation Bilateral. absent: Rales, Rhonchi, Wheezes - Cardiovascular Exam Cardiovascular Exam: REGULAR RHYTHM, +S1, +S2, Murmur. absent: Diastolic murmur , Gallop - GI/Abdominal Exam GI & Abdominal Exam: Soft. absent: Tenderness - Extremities Exam Extremities Exam: Joint Swelling, Normal Capillary Refill. absent: Calf Tenderness, Pedal Edema Assessment and Plan - Assessment and Plan (Free Text) Assessment: Pulm Embolism; adrenal inflammation; Ac Bronchitis - improve Anemia, low WBC and danish inc platelet - on going work up Unsteady gait Cont meds Fopr short term subacutr
[2017-02-14 09:03] LABS: HEMATOCRIT 32.4 % (34.0-47.0); MEAN CELL VOLUME 77.6 fL (81.0-99.0); MEAN CORPUSCULAR HEMOGLOBIN 25.2 pg (27.0-31.0); MEAN CORPUSCULAR HGB CONC 32.5 g/dL (33.0-37.0); MEAN PLATELET VOLUME 9.8 fL (7.2-11.7); PLATELET COUNT 647 K/uL (130-400); RED CELL DISTRIBUTION WIDTH 25.1 % (11.5-14.5)
[2017-02-14 09:11] LABS: CHLORIDE 97 mmol/L (98-107); SODIUM 132 mmol/L (132-148)
[2017-02-14 09:13] LABS: AST/SGOT 33 U/L (14-36); BILIRUBIN,TOTAL 0.7 mg/dL (0.2-1.3); CARBON DIOXIDE 24 mmol/L (22-30); GFR AFRICAN-AMERICAN > 60; TOTAL PROTEIN 7.9 g/dL (6.3-8.3)
[2017-02-14 09:14] LABS: ALKALINE PHOSPHATASE 92 U/L (38-126); ALT/SGPT 58 U/L (9-52); BLOOD UREA NITROGEN 14 mg/dL (7-17); CALCIUM 9.5 mg/dl (8.6-10.4); GLUCOSE,RANDOM 97 mg/dL (65-105); MAGNESIUM 2.2 mg/dL (1.6-2.3); PHOSPHOROUS 3.4 mg/dL (2.5-4.5)
[2017-02-14 10:30] LABS: BASOPHIL 1 % (0-2); EOSINOPHIL 7 % (0-4); NEUTROPHIL 45 % (50-75); TOTAL CELLS COUNTED 100
[2017-02-14 10:31] LABS: ACANTHOCYTES SLIGHT
--- NOTE | 2017-02-14 13:36 | PN ---
ENDOCRINOLOGY FOLLOWUP NOTE LOCATION: In room #569. SUBJECTIVE: This is a 76-year-old female presenting here with severe and diffuse upper abdominal pain and supervening right-sided chest pain and has been evaluated to have an acute pulmonary embolism and also a small right pleural effusion and received IV heparin, anticoagulation therapy, and has been switched over to Eliquis, oral medications as noted. She has also been evaluated initially acute adrenalitis, but no evidence clinically or biochemically of hypoadrenalism or adrenal insufficiency. She has to remain clinically and biochemically euadrenal at this time as noted. She also presented with euvolemic hyponatremia, which has improved also accordingly as her clinical condition has improved. Her latest chemistry showed a BUN of 14, sodium 132, potassium 4.0, chloride 97, CO2 of 24, glucose 97, and creatinine 0.7, so at this time, we will continue the present medical management as given. No indication at this time for any kind of thyroid or cortisol pharmacotherapy. We will follow and advise accordingly. Marely Raymundo MD
--- NOTE | 2017-02-14 15:06 | CP.PCM.PN ---
Subjective - Date & Time of Evaluation Date of Evaluation: 02/14/17 Time of Evaluation: 15:05 - Subjective Subjective: Patient feeling better, ambulatory, discussed with daughter, hypercoagulable work up still pending Objective - Vital Signs/Intake and Output Vital Signs (last 24 hours): Temp Pulse Resp BP Pulse Ox 97.2 F L 85 20 120/74 96 02/14/17 08:08 02/14/17 08:08 02/14/17 08:08 02/14/17 08:08 02/14/17 08:08 Intake and Output: 02/14/17 02/14/17 06:59 18:59 Intake Total 500 Balance 500 - Medications Medications: Current Medications Albuterol/Ipratropium (Duoneb 3 Mg/0.5 Mg (3 Ml) Ud) 3 ml INH RQID [facility] Last Admin: 02/14/17 13:31 Dose: 3 ml Alprazolam (Xanax) 0.5 mg PO HS PRN PRN Reason: Anxiety Last Admin: 02/11/17 01:13 Dose: 0.5 mg Apixaban (Eliquis) 5 mg PO BID [facility] Last Admin: 02/14/17 10:02 Dose: 5 mg Doxycycline Hyclate (Doryx) 100 mg PO Q12H [facility] Last Admin: 02/14/17 10:02 Dose: 100 mg - Labs Labs: 02/14/17 08:53 02/14/17 08:53 PT 13.7 SECONDS (9.7-12.2) H 02/06/17 19:32 INR 1.2 02/06/17 19:32 APTT 33 SECONDS (21-34) D 02/12/17 11:39 Assessment and Plan (1) Anemia Assessment & Plan: 76 yo woman with anemia, thrombocytosis, new multifocal pulmonary emboli, work up pending, symptoms of chest pain and SOB much improved, currently on Eliquis. Discussed with daughter regarding follow up as an outpatient next week, for results of hypercoagulable tests, CBC check and further testing if platelets still elevated Status: Acute
[2017-02-15 00:23] VITALS: TEMP 97.9
[2017-02-15] MEDS: Albuterol-Ipratrop 3 mg / 0.5 (3 ml) UD INH SCH ×3 (07:22→15:57)
[2017-02-15 07:26] LABS: BASO # 0.1 K/uL (0.0-0.2); BASO % 2.4 % (0.0-2.0); EOS # 0.2 K/uL (0.0-0.7); EOS % 7.2 % (0.0-4.0); HEMATOCRIT 29.7 % (34.0-47.0); LYMPH # 1.2 K/uL (1.0-4.3); LYMPH % 39.3 % (20.0-40.0); MEAN CELL VOLUME 76.1 fL (81.0-99.0); MEAN CORPUSCULAR HEMOGLOBIN 25.3 pg (27.0-31.0); MEAN CORPUSCULAR HGB CONC 33.3 g/dL (33.0-37.0); MEAN PLATELET VOLUME 9.9 fL (7.2-11.7); MONO # 0.1 K/uL (0.0-0.8); MONO % 2.1 % (0.0-10.0); NRBC % 0.3 % (0.0-2.0); RED CELL DISTRIBUTION WIDTH 24.6 % (11.5-14.5)
[2017-02-15 07:44] LABS: CHLORIDE 98 mmol/L (98-107); POTASSIUM 4.2 mmol/L (3.6-5.2); SODIUM 133 mmol/L (132-148)
[2017-02-15 07:46] LABS: AST/SGOT 53 U/L (14-36); BILIRUBIN,TOTAL 0.5 mg/dL (0.2-1.3); CARBON DIOXIDE 24 mmol/L (22-30); GFR AFRICAN-AMERICAN > 60
[2017-02-15 07:47] LABS: ALKALINE PHOSPHATASE 97 U/L (38-126); ALT/SGPT 43 U/L (9-52); BLOOD UREA NITROGEN 15 mg/dL (7-17); GLUCOSE,RANDOM 90 mg/dL (65-105); PHOSPHOROUS 4.1 mg/dL (2.5-4.5); TOTAL PROTEIN 7.5 g/dL (6.3-8.3)
[2017-02-15 07:48] LABS: MAGNESIUM 2.2 mg/dL (1.6-2.3)
--- NOTE | 2017-02-15 07:48 | CP.PCM.PN ---
Subjective - Date & Time of Evaluation Date of Evaluation: 02/15/17 Time of Evaluation: 07:30 - Subjective Subjective: Pt no complain exc indigestion last night. NO CP, no SOB, no edema, (+) dry cough but minimal Objective - Vital Signs/Intake and Output Vital Signs (last 24 hours): Temp Pulse Resp BP Pulse Ox 97.9 F 83 20 114/65 98 02/15/17 00:00 02/15/17 01:00 02/15/17 00:00 02/15/17 00:00 02/15/17 00:00 Intake and Output: 02/15/17 02/15/17 06:59 18:59 Intake Total 500 Balance 500 - Medications Medications: Current Medications Albuterol/Ipratropium (Duoneb 3 Mg/0.5 Mg (3 Ml) Ud) 3 ml INH RQID [facility] Last Admin: 02/15/17 07:22 Dose: 3 ml Apixaban (Eliquis) 5 mg PO BID [facility] Last Admin: 02/14/17 18:03 Dose: 5 mg Doxycycline Hyclate (Doryx) 100 mg PO Q12H [facility] Last Admin: 02/14/17 20:29 Dose: 100 mg - Labs Labs: 02/15/17 07:16 02/15/17 07:16 PT 13.7 SECONDS (9.7-12.2) H 02/06/17 19:32 INR 1.2 02/06/17 19:32 APTT 33 SECONDS (21-34) D 02/12/17 11:39 - Constitutional Appears: No Acute Distress - Eye Exam Eye Exam: Normal appearance - ENT Exam ENT Exam: Mucous Membranes Moist - Neck Exam Neck Exam: Full ROM. absent: Lymphadenopathy, Normal Inspection - Respiratory Exam Respiratory Exam: Clear to Ausculation Bilateral. absent: Rales, Rhonchi, Wheezes - Cardiovascular Exam Cardiovascular Exam: +S1, +S2, Murmur. absent: Gallop, REGULAR RHYTHM, JVD - GI/Abdominal Exam GI & Abdominal Exam: Soft. absent: Tenderness - Extremities Exam Extremities Exam: Full ROM. absent: Joint Swelling, Normal Capillary Refill, Normal Inspection - Skin Skin Exam: absent: Abrasion, Erythema, Intact Assessment and Plan - Assessment and Plan (Free Text) Plan: HTN, Hyperthyroidism Pulm embolism; Ac Bronchitis Unsteady Gait Discuss c/o need short term brandon but seems getting stronger Pepcid 20 mg BI for indigestion
[2017-02-15 09:08] VITALS: BP 106/64; O2SAT 96
[2017-02-15] MEDS ORDERED: methIMAzole 5 MG TAB PO SCH (10:00)
--- NOTE | 2017-02-15 10:54 | PN ---
LOCATION: Room #569. This is a 76-year-old female presenting here with euvolemic hyponatremia and evaluated to have acute pulmonary embolism and received heparin anticoagulation therapy and is now being followed closely for metabolic management. 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 She received normal saline with improved metabolic profile as noted. She also has ongoing medications for hyperthyroidism, currently on Tapazole, given as 5 mg daily and this was sustained though she was on the outpatient. Her latest thyroid studies have remained normal and optimal and remained clinically and by chemically euthyroid at this time. Her cortisol levels have remained normal and has remained also by chemically euadrenal at this time. We will continue the present medical management and obtain serial chemistries and supplement accordingly as needed. We will follow. Marely Raymundo MD
[2017-02-15 12:31] VITALS: PULSE 90
--- NOTE | 2017-02-15 15:33 | CP.PCM.PN ---
Subjective - Date & Time of Evaluation Date of Evaluation: 02/15/17 Time of Evaluation: 15:33 Objective - Vital Signs/Intake and Output Vital Signs (last 24 hours): Temp Pulse Resp BP Pulse Ox 97.9 F 90 20 106/64 96 02/15/17 08:00 02/15/17 09:00 02/15/17 08:00 02/15/17 08:00 02/15/17 08:00 Intake and Output: 02/15/17 02/15/17 06:59 18:59 Intake Total 500 Balance 500 - Medications Medications: Current Medications Albuterol/Ipratropium (Duoneb 3 Mg/0.5 Mg (3 Ml) Ud) 3 ml INH RQID [facility] Last Admin: 02/15/17 11:17 Dose: 3 ml Apixaban (Eliquis) 5 mg PO BID [facility] Last Admin: 02/15/17 09:13 Dose: 5 mg Doxycycline Hyclate (Doryx) 100 mg PO Q12H [facility] Last Admin: 02/15/17 09:13 Dose: 100 mg Famotidine (Pepcid) 20 mg PO BID [facility] Last Admin: 02/15/17 09:17 Dose: 20 mg Methimazole (Tapazole) 5 mg PO DAILY [facility] Last Admin: 02/15/17 09:17 Dose: 5 mg - Labs Labs: 02/15/17 07:16 02/15/17 07:16 PT 13.7 SECONDS (9.7-12.2) H 02/06/17 19:32 INR 1.2 02/06/17 19:32 APTT 33 SECONDS (21-34) D 02/12/17 11:39
== END 2017-02-15 16:45 | disposition home or self-care (01) | DRG 643 ==
LOC: C.ER 15:50 → C.9E 21:47 → C.3T 02-06 01:00 → OBSVTOIN 02-06 10:27 → C.9I 02-06 23:32 → C.5S 02-10 14:35
PROVIDERS: ADMIT Internal Medicine; ATTEND Internal Medicine
DX: E27.8 Other specified disorders of adrenal gland (principal); I26.99 Other pulmonary embolism without acute cor pulmonale; J18.9 Pneumonia, unspecified organism; E22.2 Syndrome of inappropriate secretion of antidiuretic hormone; C94.6 Myelodysplastic disease, not elsewhere classified; D75.89 Other specified diseases of blood and blood-forming organs; D50.9 Iron deficiency anemia, unspecified; E05.90 Thyrotoxicosis, unspecified without thyrotoxic crisis or storm; E78.00 Pure hypercholesterolemia, unspecified; E78.5 Hyperlipidemia, unspecified; I10 Essential (primary) hypertension; J40 Bronchitis, not specified as acute or chronic; K21.9 Gastro-esophageal reflux disease without esophagitis; K59.00 Constipation, unspecified; Z87.891 Personal history of nicotine dependence

== ENCOUNTER 2017-04-09 14:18 | Inpatient (IN) | payer MEDICARE, OTHER ==
--- NOTE | 2017-04-09 16:18 | C.PDOC ---
History Of Present Illness 76 y/o female sent to ED by for evaluation of consistent pain and swelling to left lower leg. Patient was recently diagnosed with MDS and was seen at ED end of January and admitted with adenitis. On that admission she developed a Pulmonary embolism and was discharged home on Eliquis. Patient followed up at office with DR. Meyer who states leg looked cellulitic and she was treated with Keflex. Today patient saw doctor again for same complaint and daughter decided to bring patient to ED for further evaluation. No other complaints at this time. Time Seen by Provider: 04/09/17 15:57 Chief Complaint (Nursing): Lower Extremity Problem/Injury History Per: Patient History/Exam Limitations: no limitations Onset/Duration Of Symptoms: Days Current Symptoms Are (Timing): Still Present Past Medical History Reviewed: Historical Data, Nursing Documentation, Vital Signs Vital Signs: Last Vital Signs Temp 98.9 F 04/09/17 14:45 Pulse 90 04/09/17 14:45 Resp 18 04/09/17 14:45 BP 118/71 04/09/17 14:45 Pulse Ox 99 04/09/17 16:22 - Medical History PMH: Gastritis, HTN, Hypercholesterolemia, Hyperthyroidism Surgical History: No Surg Hx Family History: States: No Known Family Hx - Social History Hx Alcohol Use: No Hx Substance Use: No - Immunization History Hx Tetanus Toxoid Vaccination: No Hx Influenza Vaccination: No Hx Pneumococcal Vaccination: No Review Of Systems Constitutional: Negative for: Fever, Chills Cardiovascular: Negative for: Chest Pain Respiratory: Negative for: Shortness of Breath Gastrointestinal: Negative for: Nausea, Vomiting Musculoskeletal: Positive for: Leg Pain Skin: Negative for: Rash Neurological: Negative for: Weakness, Numbness Physical Exam - Physical Exam Appears: Non-toxic, No Acute Distress Skin: Warm, Dry, No Rash Head: Atraumatic, Normacephalic Eye(s): bilateral: Normal Inspection Oral Mucosa: Moist Neck: Supple Cardiovascular: Rhythm Regular Respiratory: Normal Breath Sounds, No Rales, No Rhonchi, No Wheezing Gastrointestinal/Abdominal: Soft, No Tenderness, No Guarding, No Rebound Extremity: No Tenderness, Swelling (Left lower leg), Other (Left lower leg + erythema) Pulses: Left Dorsalis Pedis: Normal, Right Dorsalis Pedis: Normal Neurological/Psych: Oriented x3, Normal Motor, Normal Sensation ED Course And Treatment - Laboratory Results Result Diagrams: 04/09/17 16:20 04/09/17 16:20 Lab Interpretation: No Acute Changes (d-dimer is elevated at 663, Hgb and plt unchanged) O2 Sat by Pulse Oximetry: 99 (RA) Pulse Ox Interpretation: Normal Reevaluation Time: 17:05 Reassessment Condition: Unchanged - Physician Consult Information Time Consulting Physician Contacted: 17:05 Outcome Of Conversation: Case discussed with Dr Car and Dr Sosa. Unable to obtain a venous doppler at this time of the day. Patient to be treated with Lovenox and will stay for observation and ultrasound tomorrow. Disposition - Disposition Disposition: HOSPITALIZED Disposition Time: 17:06 Condition: STABLE Forms: [email or web address] ([place]) - Clinical Impression Clinical Impression: Myeloproliferative disorder, Peripheral edema - Scribe Statement The provider has reviewed the documentation as recorded by the Venita Weiss All medical record entries made by the Gautamibnaya were at my direction and personally dictated by me. I have reviewed the chart and agree that the record accurately reflects my personal performance of the history, physical exam, medical decision making, and the department course for this patient. I have also personally directed, reviewed, and agree with the discharge instructions and disposition.
[2017-04-09 16:28] LABS: HEMATOCRIT 28.5 % (34.0-47.0); MEAN CELL VOLUME 79.3 fL (81.0-99.0); MEAN CORPUSCULAR HEMOGLOBIN 25.1 pg (27.0-31.0); MEAN CORPUSCULAR HGB CONC 31.7 g/dL (33.0-37.0); MEAN PLATELET VOLUME 9.6 fL (7.2-11.7); PLATELET COUNT 522 K/uL (130-400); RED CELL DISTRIBUTION WIDTH 29.7 % (11.5-14.5)
[2017-04-09 16:34] LABS: INR 1.4
[2017-04-09 16:40] LABS: ALKALINE PHOSPHATASE 72 U/L (38-126); ALT/SGPT 36 U/L (9-52); AST/SGOT 35 U/L (14-36); BILIRUBIN,TOTAL 0.9 mg/dL (0.2-1.3); BLOOD UREA NITROGEN 8 mg/dL (7-17); CALCIUM 8.1 mg/dl (8.6-10.4); CARBON DIOXIDE 25 mmol/L (22-30); CHLORIDE 98 mmol/L (98-107); GFR AFRICAN-AMERICAN > 60; GLUCOSE,RANDOM 90 mg/dL (65-105); POTASSIUM 3.6 mmol/L (3.6-5.2); SODIUM 131 mmol/L (132-148); TOTAL PROTEIN 7.9 g/dL (6.3-8.3)
[2017-04-09 16:52] LABS: RBC URINE 1 /hpf (0-3); TRANSITIONAL EPITHIAL < 1 /hpf (0-3); URINE BACTERIA RARE (<OCC); URINE BILIRUBIN NEGATIVE (NEGATIVE); URINE BLOOD NEGATIVE (NEGATIVE); URINE COLOR Amber (YELLOW); URINE GLUCOSE (UA) NORMAL (Normal); URINE KETONE NEGATIVE (NEGATIVE); URINE LEUKOCYTE ESTERASE NEG Leu/uL (Negative); URINE PROTEIN NEGATIVE (NEGATIVE); WBC URINE < 1 /hpf (0-5)
[2017-04-09] MEDS ORDERED: Enoxaparin 40 mg Syringe SC STA (16:56)
[2017-04-09] MEDS ORDERED: Enoxaparin 60 mg Syringe ONE (17:05)
[2017-04-09 18:36] LABS: EOS # 0.4 K/uL (0.0-0.7); LYMPH # 2.9 K/uL (1.0-4.3)
[2017-04-09 18:37] LABS: BASO # 0.1 K/uL (0.0-0.2); MONO # 0.3 K/uL (0.0-0.8)
--- NOTE | 2017-04-10 08:47 | RAD ---
HISTORY: ROUITNE COMPARISON: 02/12/2017 FINDINGS: LUNGS: Linear scar/atelectasis at right base. No infiltrate seen elsewhere. PLEURA: No significant pleural effusion identified, no pneumothorax apparent. CARDIOVASCULAR: Normal. OSSEOUS STRUCTURES: No significant abnormalities. VISUALIZED UPPER ABDOMEN: Normal. OTHER FINDINGS: None. IMPRESSION: No active disease.
[2017-04-10] MEDS ORDERED: Azithromycin 500 MG in Sodium Chloride 0.9% 250 ML IVPB SCH (10:00)
[2017-04-10] MEDS: methIMAzole 5 MG TAB PO SCH (10:29)
[2017-04-10] MEDS: Multiple Vitamins Tab PO SCH (10:29)
[2017-04-10] MEDS ORDERED: Albuterol-Ipratrop 3 mg / 0.5 (3 ml) UD ONE ×2 (10:34→14:02)
[2017-04-10] MEDS: Albuterol-Ipratrop 3 mg / 0.5 (3 ml) UD INH SCH ×2 (10:39→14:00)
--- NOTE | 2017-04-10 13:14 | CP.PCM.CON ---
History of Present Illness - History of Present Illness History of Present Illness: Reason for Consultation: Cough, hx of PE 67 y/o F with a PMHx of MDS, HTN, and PE presents with a non-bloody, productive cough with white phlegm since Friday. Patient has never had a cough like this before. Patient was hospitalized several months ago where she was diagnosed Myelodysplastic syndrome and subsequently developed a PE for which she is currently taking Eliquis. Patient is also complaining of lower left extremity swelling and pain. Patient denies any smoking history, illicit drug or alcohol use. Patient denies fever, chills, headache, chest pain, runny nose, abdominal pain, diarrhea, constipation, blood in stool , n/v, and dysuria. Review of Systems - Review of Systems All systems: reviewed and no additional remarkable complaints except ( Complaining of cough) Past Patient History - Infectious Disease Hx of Infectious Diseases: None - Past Medical History & Family History Past Medical History?: Yes - Past Social History Smoking Status: Never Smoked - CARDIAC Hx Hypercholesterolemia: Yes Hx Hypertension: Yes - PULMONARY Hx Respiratory Disorders: No - NEUROLOGICAL Hx Neurological Disorder: No - HEENT Hx HEENT Problems: No - RENAL Hx Chronic Kidney Disease: No - ENDOCRINE/METABOLIC Hx Endocrine Disorders: Yes Hx Hyperthyroidism: Yes - HEMATOLOGICAL/ONCOLOGICAL Hx Blood Disorders: Yes Other/Comment: MDS- MYELODYSPLASTIC SYNDROME - INTEGUMENTARY Hx Dermatological Problems: No - MUSCULOSKELETAL/RHEUMATOLOGICAL Hx Musculoskeletal Disorders: Yes Hx Falls: Yes - GASTROINTESTINAL Hx Gastrointestinal Disorders: Yes Hx Gastritis: Yes - GENITOURINARY/GYNECOLOGICAL Hx Genitourinary Disorders: No - PSYCHIATRIC Hx Psychophysiologic Disorder: No Hx Substance Use: No - SURGICAL HISTORY Hx Surgeries: No - ANESTHESIA Hx Anesthesia: No Meds Allergies/Adverse Reactions: Allergies Allergy/AdvReac Type Severity Reaction Status Date / Time No Known Allergies Allergy Verified 04/09/17 14:51 - Medications Medications: Current Medications Acetaminophen (Tylenol 325mg Tab) 650 mg PO Q4 PRN PRN Reason: Fever >100.4 F Last Admin: 04/10/17 10:30 Dose: 650 mg Albuterol/Ipratropium (Duoneb 3 Mg/0.5 Mg (3 Ml) Ud) 3 ml INH RQ6 [facility] Last Admin: 04/10/17 10:39 Dose: 3 ml Amlodipine Besylate (Norvasc) 5 mg PO DAILY [facility] Last Admin: 04/10/17 10:29 Dose: 5 mg Apixaban (Eliquis) 5 mg PO BID [facility] Last Admin: 04/10/17 10:29 Dose: 5 mg Azithromycin 500 mg/ Sodium (Chloride) 250 mls @ 250 mls/hr IVPB DAILY [facility] Cefepime HCl 1 gm/ Dextrose 50 mls @ 100 mls/hr IVPB Q12H [facility] Last Admin: 04/10/17 10:00 Dose: 100 mls/hr Methimazole (Tapazole) 5 mg PO DAILY [facility] Last Admin: 04/10/17 10:29 Dose: 5 mg Multivitamins (Hexavitamin) 1 tab PO DAILY [facility] Last Admin: 04/10/17 10:29 Dose: 1 tab Physical Exam - Constitutional Appears: No Acute Distress - Head Exam Head Exam: ATRAUMATIC, NORMOCEPHALIC - Eye Exam Eye Exam: Normal appearance - Neck Exam Neck exam: Positive for: Normal Inspection - Respiratory Exam Respiratory Exam: Rhonchi - Cardiovascular Exam Cardiovascular Exam: REGULAR RHYTHM - GI/Abdominal Exam GI & Abdominal Exam: Normal Bowel Sounds, Soft Results - Vital Signs Recent Vital Signs: Last Vital Signs Temp 98.1 F 04/10/17 06:33 Pulse 87 04/10/17 06:33 Resp 18 04/10/17 08:26 BP 118/69 04/10/17 06:33 Pulse Ox 98 04/10/17 06:33 - Labs Result Diagrams: 04/09/17 16:20 04/09/17 16:20 Labs: Laboratory Results - last 24 hr 04/09/17 04/09/17 04/09/17 16:20 16:20 16:20 WBC 6.0 D RBC 3.59 L Hgb 9.0 L Hct 28.5 L MCV 79.3 L D MCH 25.1 L MCHC 31.7 L RDW 29.7 H Plt Count 522 H MPV 9.6 Neut % (Auto) 38.0 L Lymph % (Auto) 48.0 H [place] % (Auto) 6.0 Eos % (Auto) 7.0 H Baso % (Auto) 1.0 Neut # 2.3 Lymph # 2.9 [place] # 0.3 Eos # 0.4 Baso # 0.1 PT 15.8 H INR 1.4 D-Dimer, Quantitative 663 H Sodium 131 L Potassium 3.6 Chloride 98 Carbon Dioxide 25 Anion Gap 12 BUN 8 Creatinine 0.5 L Est GFR ( Amer) > 60 Est GFR (Non-Af Amer) > 60 Random Glucose 90 Calcium 8.1 L Total Bilirubin 0.9 AST 35 ALT 36 Alkaline Phosphatase 72 Total Protein 7.9 Albumin 3.9 Globulin 4.0 H Albumin/Globulin Ratio 1.0 Urine Color Urine Clarity Urine pH Ur Specific [place] Urine Protein Urine Glucose (UA) Urine Ketones Urine Blood Urine Nitrate Urine Bilirubin Urine Urobilinogen Ur Leukocyte Esterase Urine WBC (Auto) Urine RBC (Auto) Ur Squamous Epith Cells Ur Transition Epith Cell Urine Bacteria Influenza Typ A,B (EIA) 04/09/17 04/09/17 16:45 22:06 WBC RBC Hgb Hct MCV MCH MCHC RDW Plt Count MPV Neut % (Auto) Lymph % (Auto) [place] % (Auto) Eos % (Auto) Baso % (Auto) Neut # Lymph # [place] # Eos # Baso # PT INR D-Dimer, Quantitative Sodium Potassium Chloride Carbon Dioxide Anion Gap BUN Creatinine Est GFR ( Amer) Est GFR (Non-Af Amer) Random Glucose Calcium Total Bilirubin AST ALT Alkaline Phosphatase Total Protein Albumin Globulin Albumin/Globulin Ratio Urine Color [place] Urine Clarity Hazy Urine pH 5.0 Ur Specific [place] 1.015 Urine Protein Negative Urine Glucose (UA) Normal Urine Ketones Negative Urine Blood Negative Urine Nitrate Negative Urine Bilirubin Negative Urine Urobilinogen 2.0 H Ur Leukocyte Esterase Neg Urine WBC (Auto) < 1 Urine RBC (Auto) 1 Ur Squamous Epith Cells < 1 Ur Transition Epith Cell < 1 Urine Bacteria Rare Influenza Typ A,B (EIA) Negative for flu a/b Assessment & Plan (1) Cough Status: Acute Comment: complaining of cough for the past few days which is mostly dry. Rule out bronchospasm. Rule out GERD. Chest x-ray showed no infiltrate. Continue nebulizer treatment. Continue anticoagulation. Seen by infectious disease and started on antibiotics. Followup chest x-ray (2) Myeloproliferative disorder Status: Acute (3) Pulmonary embolism Status: Acute
--- NOTE | 2017-04-10 13:45 | VASCLAB ---
PROCEDURE: Left Lower Extremity Venous Duplex Exam. HISTORY: Swelling, left leg PRIORS: Last exam 02/07/2017, normal. TECHNIQUE: Left common femoral, femoral, popliteal and posterior tibial, peroneal and great saphenous veins were evaluated. Flow was assessed with color Doppler, compressibility, assessment of phasic flow and augmentation response. Report prepared by CHUCKIE Oropeza FINDINGS: LEFT: 1. Common Femoral Vein: 1.1. Compressibility - Fully compressible: Thrombus - None : Flow - Phasic: Augmentation -Normal: Reflux - None. 2. Femoral Vein: 2.1. Compressibility - Fully compressible: Thrombus - None: Flow - Phasic: Augmentation -Normal: Reflux - None. 3. Popliteal Vein: 3.1. Compressibility - Fully compressible: Thrombus - None: Flow - Phasic: Augmentation -Normal: Reflux - None. 4. Posterior Tibial Vein: 4.1. Compressibility - Fully compressible: Thrombus - None: Flow - Phasic: Augmentation -Normal: Reflux - None. 5. Peroneal Vein: 5.1. Compressibility - Fully compressible: Thrombus - None: Flow - Phasic: Augmentation -Normal: Reflux - None. 6. Great Saphenous Vein: 6.1. Not visualized. OTHER FINDINGS: IMPRESSION: No evidence of deep vein thrombosis of the left lower extremity with excellent venous flow. Normal valve function noted of the left side. Normal venous flow noted in the right common femoral vein.
--- NOTE | 2017-04-10 16:12 | CP.PCM.HP ---
History of Present Illness - History of Present Illness History of Present Illness: 76 y/o female sent to ED by for evaluation of consistent pain and swelling to left lower leg. Patient was recently diagnosed with MDS and was seen at ED end of January and admitted with adenitis. On that admission she developed a Pulmonary embolism and was discharged home on Eliquis. Patient followed up at office with DR. Meyer who states leg looked cellulitic and she was treated with Keflex. Today patient saw doctor again for same complaint and daughter decided to bring patient to ED for further evaluation. No other complaints at this time. - Medical History PMH: Gastritis, HTN, Hypercholesterolemia, Hyperthyroidism Surgical History: No Surg Hx Family History: States: No Known Family Hx Present on Admission - Present on Admission Any Indicators Present on Admission: No History of DVT/PE: No History of Uncontrolled Diabetes: No Urinary Catheter: No Decubitus Ulcer Present: No History Surgical Site Infection Following: None Review of Systems - Review of Systems All systems: reviewed and no additional remarkable complaints except - Constitutional Constitutional: As Per HPI - EENT Eyes: absent: As Per HPI, Blind Spots, Blurred Vision, Change in Vision, Decreased Night Vision, Diplopia, Discharge, Dry Eye, Exophthalmos, Floaters, Irritation, Itchy Eyes, Loss of Peripheral Vision, Pain, Photophobia, Requires Corrective Lenses, Sees Flashes, Spots in Vision, Tunnel Vision, Other Visual Disturbances, Loss of Vision, Other Ears: absent: As Per HPI, Decreased Hearing, Ear Discharge, Ear Pain, Tinnitus, Abnormal Hearing, Disequilibrium, Dizziness, Other Nose/Mouth/Throat: absent: As Per HPI, Epistaxis, Nasal Congestion, Nasal Discharge, Nasal Obstruction, Nasal Trauma, Nose Pain, Post Nasal Drip, Sinus Pain, Sinus Pressure, Bleeding Gums, Change in Voice, Dental Pain, Dry Mouth, Dysphagia, Halitosis, Hoarsness, Lip Swelling, Mouth Lesions, Mouth Pain, Odynophagia, Sore Throat, Throat Swelling, Tongue Swelling, Facial Pain, Neck Pain, Neck Mass, Other - Breasts Breasts: absent: As Per HPI, Change in Shape, Mass, Pain, Nipple Discharge, Nipple Inversion, Skin Changes, Swelling, Other - Cardiovascular Cardiovascular: absent: As Per HPI, Acrocyanosis, Chest Pain, Chest Pain at Rest , Chest Pain with Activity, Claudication, Diaphoresis, Dyspnea, Dyspnea on Exertion, Edema, Irregular Heart Rhythm, Pain Radiating to Arm/Neck/Jaw, Leg Edema, Leg Ulcers, Lightheadedness, Orthopnea, Palpitations, Paroxysmal Nocturnal Dyspnea, Pedal Edema, Radiating Pain, Rapid Heart Rate, Slow Heart Rate, Syncope, Other - Respiratory Respiratory: absent: As Per HPI, Cough, Dyspnea, Hemoptysis, Dyspnea on Exertion , Wheezing, Snoring, Stridor, Pain on Inspiration, Chest Congestion, Excessive Mucous Production, Change in Mucous Color, Pain with Coughing, Other - Gastrointestinal Gastrointestinal: absent: As Per HPI, Abdominal Pain, Belching, Bloating, Change in Bowel Habits, Change in Stool Character, Coffee Ground Emesis, Constipation, Cramping, Diarrhea, Dyspepsia, Dysphagia, Early Satiety, Excessive Flatus, Fecal Incontinence, Heartburn, Hematemesis, Hematochezia, Loose Stools, Melena, Nausea, Odynophagia, Temesmus, Vomiting, Other - Genitourinary Genitourinary: absent: As Per HPI, Change in Urinary Stream, Difficulty Urinating, Dysuria, Flank Pain, Hematuria, Pyuria, Nocturia, Urinary Incontinence, Urinary Frequency, Urinary Hesitance, Urinary Urgency, Voiding Freq/Small Amts, Freq UTI, Hx Renal/Bladder Calculi, Hx /Renal Surgery, Bladder Distension, Other - Reproductive: Female Reproductive:Female: absent: As Per HPI, Amenorrhea, Amenorrhea/ Control, Currently Menstual, Cycle <21 Days, Cycle >35 Days, Cycle Variable, Menses 1-7 Days, Menses >/= 8 Days, Menses Variable, Cycle > 4 Weeks Between, No Menses for 6 Months, Heavy Menses, Light Menses, Normal Menses, Spotting Between Cycles , S/P Hysterectomy, Menopausal, Post Menopausal, Premenarche, Abnormal Vaginal Bleeding, Dysmenorrhea, Dyspareunia, Genital Lesions, Genital Pruritis, Pelvic Pain, Prolapse Symptoms, Sexual Dysfunction, Vaginal Discharge, Vaginal Dryness , Vaginal Odor, Vaginal Pruritis, Other - Menstruation Menstruation: absent: As Per HPI, Amenorrhea, Amenorrhea/ Control, Currently Menstual, Cycle <21 Days, Cycle >35 Days, Cycle Variable, Menses 1-7 Days, Menses >/= 8 Days, Menses Variable, Cycle > 4 Weeks Between, No Menses for 6 Months, Heavy Menses, Light Menses, Normal Menses, Spotting Between Cycles , S/P Hysterectomy, Menopausal, Post Menopausal, Premenarche, Abnormal Vaginal Bleeding, Dysmenorrhea, Other - Musculoskeletal Musculoskeletal: As Per HPI - Integumentary Integumentary: As Per HPI, Skin Pain, Wounds - Neurological Neurological: absent: As Per HPI, Abnormal Gait, Abnormal Hearing, Abnormal Movements, Abnormal Speech, Behavioral Changes, Burning Sensations, Confusion, Convulsions, Disequilibrium, Dizziness, Numbness, Focal Weakness, Frequent Falls , Headaches, Lack of Coordination, Loss of Vision, Memory Loss, Paresthesias, Radicular Pain, Restless Legs, Sensory Deficit, Syncope, Tingling, Tremor, Vertigo, Weakness, Other Visual Disturbances, Other - Psychiatric Psychiatric: absent: As Per HPI, Abnormal Sleep Pattern, Anhedonia, Anxiety, Auditory Hallucinations, Behavioral Changes, Change in Appetite, Change in Libido, Confusion, Depression, Difficulty Concentrating, Hallucinations, Homicidal Ideation, Hopelessness, Irritability, Memory Loss, Mood Swings, Panic Attacks, Paranoia, Suicidal Ideation, Visual Hallucinations, Tactile Hallucinations, Other - Endocrine Endocrine: absent: As Per HPI, Change in Body Appearance, Change in Libido, Cold Intolorance, Deepening of Voice, Excessive Sweating, Fatigue, Flushing, Heat Intolorance, Increase in Ring/Shoe/Hat Size, Palpitations, Polydipsia, Polyphagia, Polyuria, Other - Hematologic/Lymphatic Hematologic: absent: As Per HPI, Easy Bleeding, Easy Bruising, Lymphadenopathy, Other Past Patient History - Infectious Disease Hx of Infectious Diseases: None - Past Medical History & Family History Past Medical History?: Yes - Past Social History Smoking Status: Never Smoked - CARDIAC Hx Hypercholesterolemia: Yes Hx Hypertension: Yes - PULMONARY Hx Respiratory Disorders: No - NEUROLOGICAL Hx Neurological Disorder: No - HEENT Hx HEENT Problems: No - RENAL Hx Chronic Kidney Disease: No - ENDOCRINE/METABOLIC Hx Endocrine Disorders: Yes Hx Hyperthyroidism: Yes - HEMATOLOGICAL/ONCOLOGICAL Hx Blood Disorders: Yes Other/Comment: MDS- MYELODYSPLASTIC SYNDROME - INTEGUMENTARY Hx Dermatological Problems: No - MUSCULOSKELETAL/RHEUMATOLOGICAL Hx Musculoskeletal Disorders: Yes Hx Falls: Yes - GASTROINTESTINAL Hx Gastrointestinal Disorders: Yes Hx Gastritis: Yes - GENITOURINARY/GYNECOLOGICAL Hx Genitourinary Disorders: No - PSYCHIATRIC Hx Psychophysiologic Disorder: No Hx Substance Use: No - SURGICAL HISTORY Hx Surgeries: No - ANESTHESIA Hx Anesthesia: No Meds Allergies/Adverse Reactions: Allergies Allergy/AdvReac Type Severity Reaction Status Date / Time No Known Allergies Allergy Verified 04/09/17 14:51 Physical Exam - Constitutional Appears: Non-toxic, Cachectic, Chronically Ill - Head Exam Head Exam: NORMOCEPHALIC - Eye Exam Eye Exam: PERRL. absent: Scleral icterus - ENT Exam ENT Exam: Mucous Membranes Dry, Normal External Ear Exam - Neck Exam Neck exam: Negative for: Lymphadenopathy - Respiratory Exam Respiratory Exam: Decreased Breath Sounds, Clear to Auscultation Bilateral - Cardiovascular Exam Cardiovascular Exam: REGULAR RHYTHM, +S1, +S2 - GI/Abdominal Exam GI & Abdominal Exam: Diminished Bowel Sounds, Soft. absent: Tenderness - Rectal Exam Rectal Exam: NORMAL INSPECTION - Exam Exam: NORMAL INSPECTION - Extremities Exam Extremities exam: Positive for: pedal edema, tenderness, pedal pulses present. Negative for: calf tenderness - Back Exam Back exam: absent: CVA tenderness (L), CVA tenderness (R), paraspinal tenderness - Neurological Exam Neurological exam: Alert, CN II-XII Intact, Oriented x3, Reflexes Normal - Psychiatric Exam Psychiatric exam: Depressed - Skin Skin Exam: Dry, Erythema Results - Vital Signs Recent Vital Signs: Last Vital Signs Temp 98 F 04/10/17 14:49 Pulse 84 04/10/17 14:49 Resp 16 04/10/17 14:49 BP 93/47 L 04/10/17 14:49 Pulse Ox 97 04/10/17 14:49 - Labs Result Diagrams: 04/09/17 16:20 04/09/17 16:20 Labs: Laboratory Results - last 24 hr 04/09/17 04/09/17 04/09/17 16:20 16:20 16:20 WBC 6.0 D RBC 3.59 L Hgb 9.0 L Hct 28.5 L MCV 79.3 L D MCH 25.1 L MCHC 31.7 L RDW 29.7 H Plt Count 522 H MPV 9.6 Neut % (Auto) 38.0 L Lymph % (Auto) 48.0 H [place] % (Auto) 6.0 Eos % (Auto) 7.0 H Baso % (Auto) 1.0 Neut # 2.3 Lymph # 2.9 [place] # 0.3 Eos # 0.4 Baso # 0.1 PT 15.8 H INR 1.4 D-Dimer, Quantitative 663 H Sodium 131 L Potassium 3.6 Chloride 98 Carbon Dioxide 25 Anion Gap 12 BUN 8 Creatinine 0.5 L Est GFR ( Amer) > 60 Est GFR (Non-Af Amer) > 60 Random Glucose 90 Calcium 8.1 L Total Bilirubin 0.9 AST 35 ALT 36 Alkaline Phosphatase 72 Total Protein 7.9 Albumin 3.9 Globulin 4.0 H Albumin/Globulin Ratio 1.0 Urine Color Urine Clarity Urine pH Ur Specific Morrison Urine Protein Urine Glucose (UA) Urine Ketones Urine Blood Urine Nitrate Urine Bilirubin Urine Urobilinogen Ur Leukocyte Esterase Urine WBC (Auto) Urine RBC (Auto) Ur Squamous Epith Cells Ur Transition Epith Cell Urine Bacteria Influenza Typ A,B (EIA) 04/09/17 04/09/17 16:45 22:06 WBC RBC Hgb Hct MCV MCH MCHC RDW Plt Count MPV Neut % (Auto) Lymph % (Auto) [place] % (Auto) Eos % (Auto) Baso % (Auto) Neut # Lymph # [place] # Eos # Baso # PT INR D-Dimer, Quantitative Sodium Potassium Chloride Carbon Dioxide Anion Gap BUN Creatinine Est GFR ( Amer) Est GFR (Non-Af Amer) Random Glucose Calcium Total Bilirubin AST ALT Alkaline Phosphatase Total Protein Albumin Globulin Albumin/Globulin Ratio Urine Color Jayda Urine Clarity Hazy Urine pH 5.0 Ur Specific Morrison 1.015 Urine Protein Negative Urine Glucose (UA) Normal Urine Ketones Negative Urine Blood Negative Urine Nitrate Negative Urine Bilirubin Negative Urine Urobilinogen 2.0 H Ur Leukocyte Esterase Neg Urine WBC (Auto) < 1 Urine RBC (Auto) 1 Ur Squamous Epith Cells < 1 Ur Transition Epith Cell < 1 Urine Bacteria Rare Influenza Typ A,B (EIA) Negative for flu a/b Assessment & Plan (1) Myeloproliferative disorder Status: Acute (2) Peripheral edema Status: Acute - Assessment and Plan (Free Text) Assessment: severe cellulitis LLE- failed out pt rx , Has MDS r/o abscess DVT unlikely SOB with exertion ? CHF cxr neg Dr Sosa ans Dr Ruiz to eval add vanco Decision To Admit - Pt Status Changed To: Hospital Disposition Of: Inpatient - Admit Certification Admit to Inpatient:: After my assessment, the patient will require hospitalization for at least two midnights. This is because of the severity of symptoms shown, intensity of services needed, and/or the medical risk in this patient being treated as an outpatient. - InPatient: Physician Admission Certification:: patient failed out pt rx and is severely compromised due to MDS - she requires in pt rx - . Bed Request Type: Regular Admitting Physician: Bong Hernandez
[2017-04-10] MEDS: guaiFENesin 100 mg/5 ml Syrup UD PO PRN (21:22)
[2017-04-11] MEDS: Albuterol-Ipratrop 3 mg / 0.5 (3 ml) UD INH SCH ×4 (01:21→19:25)
[2017-04-11] MEDS: methIMAzole 5 MG TAB PO SCH (10:53)
[2017-04-11] MEDS: Multiple Vitamins Tab PO SCH (10:54)
--- NOTE | 2017-04-11 12:34 | CP.PCM.PN ---
Subjective - Date & Time of Evaluation Date of Evaluation: 04/11/17 Time of Evaluation: 10:35 - Subjective Subjective: the patient seen and examined Denies shortness of breath, denies cough, denies fever chills Being treated for cellulitis Objective - Vital Signs/Intake and Output Vital Signs (last 24 hours): Temp Pulse Resp BP Pulse Ox 98.1 F 89 20 93/60 L 97 04/11/17 08:23 04/11/17 08:23 04/11/17 08:23 04/11/17 08:23 04/11/17 08:23 Intake and Output: 04/11/17 04/11/17 06:59 18:59 Intake Total 600 Balance 600 - Medications Medications: Current Medications Acetaminophen (Tylenol 325mg Tab) 650 mg PO Q4 PRN PRN Reason: Fever >100.4 F Last Admin: 04/10/17 10:30 Dose: 650 mg Albuterol/Ipratropium (Duoneb 3 Mg/0.5 Mg (3 Ml) Ud) 3 ml INH RQ6 [facility] Last Admin: 04/11/17 07:34 Dose: 3 ml Amlodipine Besylate (Norvasc) 5 mg PO DAILY [facility] Last Admin: 04/11/17 10:44 Dose: Not Given Apixaban (Eliquis) 5 mg PO BID [facility] Last Admin: 04/11/17 10:53 Dose: 5 mg Guaifenesin (Robitussin) 100 mg PO Q6 PRN PRN Reason: Cough Last Admin: 04/10/17 21:22 Dose: 100 mg Cefepime HCl 1 gm/ Dextrose 50 mls @ 100 mls/hr IVPB Q12H [facility] Last Admin: 04/11/17 10:54 Dose: 100 mls/hr Vancomycin HCl 1 gm/ Sodium (Chloride) 250 mls @ 166.6 mls/hr IVPB Q12H [facility] Last Admin: 04/11/17 08:15 Dose: 166.6 mls/hr Methimazole (Tapazole) 5 mg PO DAILY [facility] Last Admin: 04/11/17 10:53 Dose: 5 mg Multivitamins (Hexavitamin) 1 tab PO DAILY [facility] Last Admin: 04/11/17 10:54 Dose: 1 tab - Labs Labs: 04/09/17 16:20 04/09/17 16:20 PT 15.8 SECONDS (9.7-12.2) H 04/09/17 16:20 INR 1.4 04/09/17 16:20 - Head Exam Head Exam: ATRAUMATIC, NORMOCEPHALIC - ENT Exam ENT Exam: Mucous Membranes Moist - Neck Exam Neck Exam: Normal Inspection - Respiratory Exam Respiratory Exam: Clear to Ausculation Bilateral - Cardiovascular Exam Cardiovascular Exam: REGULAR RHYTHM - GI/Abdominal Exam GI & Abdominal Exam: Soft, Normal Bowel Sounds - Extremities Exam Extremities Exam: Full ROM - Neurological Exam Neurological Exam: Alert, Oriented x3 Assessment and Plan (1) Cough Assessment & Plan: Much improved Continue nebulizer treatment Continue antibiotics per infectious disease On anticoagulation Status: Acute (2) Myeloproliferative disorder Status: Acute (3) Pulmonary embolism Status: Acute
--- NOTE | 2017-04-11 16:31 | CP.PCM.PN ---
Subjective - Date & Time of Evaluation Date of Evaluation: 04/11/17 Time of Evaluation: 08:00 - Subjective Subjective: still with sob denies chest pain'left leg swollen Objective - Vital Signs/Intake and Output Vital Signs (last 24 hours): Temp Pulse Resp BP Pulse Ox 98.3 F 83 18 106/57 L 97 04/11/17 15:45 04/11/17 15:45 04/11/17 15:45 04/11/17 15:45 04/11/17 15:45 Intake and Output: 04/11/17 04/11/17 06:59 18:59 Intake Total 600 700 Balance 600 700 - Medications Medications: Current Medications Acetaminophen (Tylenol 325mg Tab) 650 mg PO Q4 PRN PRN Reason: Fever >100.4 F Last Admin: 04/10/17 10:30 Dose: 650 mg Albuterol/Ipratropium (Duoneb 3 Mg/0.5 Mg (3 Ml) Ud) 3 ml INH RQ6 [facility] Last Admin: 04/11/17 13:46 Dose: 3 ml Amlodipine Besylate (Norvasc) 5 mg PO DAILY [facility] Last Admin: 04/11/17 10:44 Dose: Not Given Apixaban (Eliquis) 5 mg PO BID [facility] Last Admin: 04/11/17 10:53 Dose: 5 mg Guaifenesin (Robitussin) 100 mg PO Q6 PRN PRN Reason: Cough Last Admin: 04/10/17 21:22 Dose: 100 mg Cefepime HCl 1 gm/ Dextrose 50 mls @ 100 mls/hr IVPB Q12H [facility] Last Admin: 04/11/17 10:54 Dose: 100 mls/hr Vancomycin HCl 1 gm/ Sodium (Chloride) 250 mls @ 166.6 mls/hr IVPB Q12H [facility] Last Admin: 04/11/17 08:15 Dose: 166.6 mls/hr Methimazole (Tapazole) 5 mg PO DAILY [facility] Last Admin: 04/11/17 10:53 Dose: 5 mg Multivitamins (Hexavitamin) 1 tab PO DAILY [facility] Last Admin: 04/11/17 10:54 Dose: 1 tab - Labs Labs: 04/09/17 16:20 04/09/17 16:20 PT 15.8 SECONDS (9.7-12.2) H 04/09/17 16:20 INR 1.4 04/09/17 16:20 - Constitutional Appears: Non-toxic, Cachectic, Chronically Ill - Head Exam Head Exam: NORMOCEPHALIC - Eye Exam Eye Exam: PERRL. absent: Scleral icterus - ENT Exam ENT Exam: Mucous Membranes Dry - Neck Exam Neck Exam: absent: Lymphadenopathy - Respiratory Exam Respiratory Exam: Decreased Breath Sounds, Rhonchi - Cardiovascular Exam Cardiovascular Exam: REGULAR RHYTHM, +S1, +S2 - GI/Abdominal Exam GI & Abdominal Exam: Distended, Soft - Rectal Exam Rectal Exam: Deferred - Exam Exam: NORMAL INSPECTION - Extremities Exam Extremities Exam: Pedal Edema, Tenderness. absent: Calf Tenderness - Back Exam Back Exam: absent: CVA tenderness (L), CVA tenderness (R) - Neurological Exam Neurological Exam: Alert, Awake, Oriented x3 Neuro motor strength exam: Left Upper Extremity: 5, Right Upper Extremity: 5, Left Lower Extremity: 5, Right Lower Extremity: 5 - Psychiatric Exam Psychiatric exam: Depressed - Skin Skin Exam: Dry Assessment and Plan (1) Myeloproliferative disorder Status: Acute (2) Peripheral edema Status: Acute (3) Cellulitis and abscess of left leg Status: Acute
--- NOTE | 2017-04-11 19:13 | CP.PCM.CON ---
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 She was admitted for cellulitis on iv Vancomycin. The patient was recently admitted for anemia, diagnosed with MDS, also developed a pulmonary embolus currently on Eliquis. She was started on Epogen as outpatient and low dose Revlimid, which she has been taking intermittently because of side effects Past Patient History - Infectious Disease Hx of Infectious Diseases: None - Past Medical History & Family History Past Medical History?: Yes - Past Social History Smoking Status: Never Smoked - CARDIAC Hx Hypercholesterolemia: Yes Hx Hypertension: Yes - PULMONARY Hx Respiratory Disorders: No - NEUROLOGICAL Hx Neurological Disorder: No - HEENT Hx HEENT Problems: No - RENAL Hx Chronic Kidney Disease: No - ENDOCRINE/METABOLIC Hx Hypothyroidism: Yes - HEMATOLOGICAL/ONCOLOGICAL Hx Blood Disorders: Yes Other/Comment: MDS- MYELODYSPLASTIC SYNDROME - INTEGUMENTARY Hx Dermatological Problems: No - MUSCULOSKELETAL/RHEUMATOLOGICAL Hx Musculoskeletal Disorders: Yes Hx Falls: Yes - GASTROINTESTINAL Hx Gastrointestinal Disorders: Yes Hx Gastritis: Yes - GENITOURINARY/GYNECOLOGICAL Hx Genitourinary Disorders: No - PSYCHIATRIC Hx Psychophysiologic Disorder: No Hx Substance Use: No - SURGICAL HISTORY Hx Surgeries: No - ANESTHESIA Hx Anesthesia: No Meds Allergies/Adverse Reactions: Allergies Allergy/AdvReac Type Severity Reaction Status Date / Time No Known Allergies Allergy Verified 04/09/17 14:51 - Medications Medications: Current Medications Acetaminophen (Tylenol 325mg Tab) 650 mg PO Q4 PRN PRN Reason: Fever >100.4 F Last Admin: 04/10/17 10:30 Dose: 650 mg Albuterol/Ipratropium (Duoneb 3 Mg/0.5 Mg (3 Ml) Ud) 3 ml INH RQ6 [facility] Last Admin: 04/11/17 13:46 Dose: 3 ml Amlodipine Besylate (Norvasc) 5 mg PO DAILY [facility] Last Admin: 04/11/17 10:44 Dose: Not Given Apixaban (Eliquis) 5 mg PO BID [facility] Last Admin: 04/11/17 17:29 Dose: 5 mg Guaifenesin (Robitussin) 100 mg PO Q6 PRN PRN Reason: Cough Last Admin: 04/10/17 21:22 Dose: 100 mg Cefepime HCl 1 gm/ Dextrose 50 mls @ 100 mls/hr IVPB Q12H [facility] Last Admin: 04/11/17 10:54 Dose: 100 mls/hr Vancomycin HCl 1 gm/ Sodium (Chloride) 250 mls @ 166.6 mls/hr IVPB Q12H [facility] Last Admin: 04/11/17 08:15 Dose: 166.6 mls/hr Methimazole (Tapazole) 5 mg PO DAILY [facility] Last Admin: 04/11/17 10:53 Dose: 5 mg Multivitamins (Hexavitamin) 1 tab PO DAILY [facility] Last Admin: 04/11/17 10:54 Dose: 1 tab Mupirocin (Bactroban Ointment) 1 gm TOP BID [facility] Results - Vital Signs Recent Vital Signs: Last Vital Signs Temp 98.3 F 04/11/17 15:45 Pulse 83 04/11/17 15:45 Resp 18 04/11/17 15:45 BP 106/57 L 04/11/17 15:45 Pulse Ox 97 04/11/17 15:45 - Labs Result Diagrams: 04/09/17 16:20 04/09/17 16:20 Assessment & Plan (1) Myelodysplasia (myelodysplastic syndrome) Assessment and Plan: 76 yo woman with a diagnosis of MDS (RAEB), hemoglobin fairly stable on Procrit and Revlimid. Hold PO Revlimid for now, till course of antibiotics complete. Rest as per ID and PMD. The patient will follow up on discharge to have a CBC check and determine need for Procrit. Status: Acute (2) Myeloproliferative disorder Status: Acute
[2017-04-12] MEDS: Albuterol-Ipratrop 3 mg / 0.5 (3 ml) UD INH SCH ×5 (01:10→19:52)
[2017-04-12 06:28] LABS: HEMATOCRIT 26.4 % (34.0-47.0)
[2017-04-12 06:31] LABS: ALB/GLOB RATIO 0.7 (1.0-2.1); ALKALINE PHOSPHATASE 61 U/L (38-126); ALT/SGPT 42 U/L (9-52); AST/SGOT 41 U/L (14-36); BILIRUBIN,TOTAL 0.4 mg/dL (0.2-1.3); BLOOD UREA NITROGEN 7 mg/dL (7-17); CARBON DIOXIDE 28 mmol/L (22-30); CHLORIDE 106 mmol/L (98-107); GFR AFRICAN-AMERICAN > 60; GLUCOSE,RANDOM 101 mg/dL (65-105); POTASSIUM 3.4 mmol/L (3.6-5.2); SODIUM 139 mmol/L (132-148); TOTAL PROTEIN 7.4 g/dL (6.3-8.3)
[2017-04-12 07:31] LABS: MEAN CELL VOLUME 78.4 fL (81.0-99.0); MEAN CORPUSCULAR HEMOGLOBIN 25.2 pg (27.0-31.0); MEAN CORPUSCULAR HGB CONC 32.1 g/dL (33.0-37.0); MEAN PLATELET VOLUME 9.6 fL (7.2-11.7)
[2017-04-12] MEDS: Multiple Vitamins Tab PO SCH (09:39)
[2017-04-12] MEDS: methIMAzole 5 MG TAB PO SCH (09:39)
--- NOTE | 2017-04-12 10:26 | CARD ---
APPROVED REPORT EKG Measurement Heart [id number] <Conclusion> Normal sinus rhythm Low voltage QRS Prolonged QT Abnormal ECG
[2017-04-12 10:32] LABS: EOS # 0.6 K/uL (0.0-0.7); LYMPH # 2.2 K/uL (1.0-4.3); MONO # 0.2 K/uL (0.0-0.8)
[2017-04-12] MEDS ORDERED: Potassium Chloride 20 mEq ER Tab PO ONE (10:48)
--- NOTE | 2017-04-12 13:30 | CP.PCM.CON ---
History of Present Illness - History of Present Illness History of Present Illness: Podiatry Consult Note - Dr. Victor 76 year old female patient seen and evaluated at bedside with Dr. Victor for left leg cellulitis + pain. Patient hemodynamically stable and NAD. Patient states she was sent to [facility] ED by her doctor, Dr. Meyer for evaluation of painful redness and swelling to the outside of her left ankle. Patient states she has had a hard time with ambulating however reports decreased pain since admission, believes antibiotics have been alleviating her symptoms. Denies N/V/F/D/C/SOB/calf pain. Review of Systems - Review of Systems All systems: reviewed and no additional remarkable complaints except (as per HPI ) Past Patient History - Infectious Disease Hx of Infectious Diseases: None - Past Medical History & Family History Past Medical History?: Yes - Past Social History Smoking Status: Never Smoked - CARDIAC Hx Hypercholesterolemia: Yes Hx Hypertension: Yes - PULMONARY Hx Respiratory Disorders: No - NEUROLOGICAL Hx Neurological Disorder: No - HEENT Hx HEENT Problems: No - RENAL Hx Chronic Kidney Disease: No - ENDOCRINE/METABOLIC Hx Hypothyroidism: Yes - HEMATOLOGICAL/ONCOLOGICAL Hx Blood Disorders: Yes Other/Comment: MDS- MYELODYSPLASTIC SYNDROME - INTEGUMENTARY Hx Dermatological Problems: No - MUSCULOSKELETAL/RHEUMATOLOGICAL Hx Musculoskeletal Disorders: Yes Hx Falls: Yes - GASTROINTESTINAL Hx Gastrointestinal Disorders: Yes Hx Gastritis: Yes - GENITOURINARY/GYNECOLOGICAL Hx Genitourinary Disorders: No - PSYCHIATRIC Hx Psychophysiologic Disorder: No Hx Substance Use: No - SURGICAL HISTORY Hx Surgeries: No - ANESTHESIA Hx Anesthesia: No Meds Allergies/Adverse Reactions: Allergies Allergy/AdvReac Type Severity Reaction Status Date / Time No Known Allergies Allergy Verified 04/09/17 14:51 - Medications Medications: Current Medications Acetaminophen (Tylenol 325mg Tab) 650 mg PO Q4 PRN PRN Reason: Fever >100.4 F Last Admin: 04/11/17 21:39 Dose: 650 mg Albuterol/Ipratropium (Duoneb 3 Mg/0.5 Mg (3 Ml) Ud) 3 ml INH RQ6 [facility] Last Admin: 04/12/17 07:58 Dose: 3 ml Amlodipine Besylate (Norvasc) 5 mg PO DAILY [facility] Last Admin: 04/12/17 09:39 Dose: Not Given Apixaban (Eliquis) 5 mg PO BID [facility] Last Admin: 04/12/17 09:39 Dose: 5 mg Guaifenesin (Robitussin) 100 mg PO Q6 PRN PRN Reason: Cough Last Admin: 04/10/17 21:22 Dose: 100 mg Vancomycin HCl 1 gm/ Sodium (Chloride) 250 mls @ 166.6 mls/hr IVPB Q12H [facility] Last Admin: 04/12/17 10:50 Dose: 166.6 mls/hr Methimazole (Tapazole) 5 mg PO DAILY [facility] Last Admin: 04/12/17 09:39 Dose: 5 mg Multivitamins (Hexavitamin) 1 tab PO DAILY [facility] Last Admin: 04/12/17 09:39 Dose: 1 tab Mupirocin (Bactroban Ointment) 1 gm TOP BID [facility] Last Admin: 04/12/17 09:39 Dose: 1 gm Physical Exam - Constitutional Appears: Well, Non-toxic, No Acute Distress - Extremities Exam Additional comments: LLE focused physical exam Dressing in place on left lateral leg VASC: DP and PT pulses palpable. CFT WNL to digits. Temperature gradient warm to warm, with increase in warmth noted to lateral lower 1/3 of leg NEURO: Gross sensation intact DERM: Erythema noted to lateral lower 1/3 of leg extending distally to ankle joint with central area of deep rubor. No open lesion noted. Absent fluctuance, bogginess. ORTHO: Pain on palpation lateral lower 1/3 of leg - Neurological Exam Neurological exam: Alert, Oriented x3 - Psychiatric Exam Psychiatric exam: Normal Affect, Normal Mood Results - Vital Signs Recent Vital Signs: Last Vital Signs Temp 98.7 F 04/12/17 07:30 Pulse 87 04/12/17 09:38 Resp 20 04/12/17 07:30 BP 100/61 04/12/17 09:38 Pulse Ox 100 04/12/17 07:30 - Labs Result Diagrams: 04/12/17 06:11 04/12/17 06:11 Labs: Laboratory Results - last 24 hr 04/12/17 04/12/17 04/12/17 06:11 06:11 06:11 WBC 5.0 RBC 3.37 L Hgb 8.5 L Hct 26.4 L MCV 78.4 L MCH 25.2 L MCHC 32.1 L RDW 28.0 H Plt Count 463 H MPV 9.6 Neut % (Auto) 38.0 L Lymph % (Auto) 44.0 H [place] % (Auto) 4.0 Eos % (Auto) 13.0 H Baso % (Auto) 1.0 Neut # 2.0 Lymph # 2.2 [place] # 0.2 Eos # 0.6 Baso # 0.0 Sodium 139 Potassium 3.4 L Chloride 106 Carbon Dioxide 28 Anion Gap 9 L BUN 7 Creatinine 0.6 L Est GFR ( Amer) > 60 Est GFR (Non-Af Amer) > 60 Random Glucose 101 Calcium 8.0 L Total Bilirubin 0.4 AST 41 H ALT 42 Alkaline Phosphatase 61 Total Protein 7.4 Albumin 3.1 L D Globulin 4.2 H Albumin/Globulin Ratio 0.7 L Vancomycin Trough 13.3 H Assessment & Plan - Assessment and Plan (Free Text) Assessment: 76 year old female patient with left leg cellulitis + vasculitis Plan: Patient seen and evaluated with attending, Dr. Victor Afebrile, WBC 5.0 Bactroban applied to lateral lower leg and dressed with DSD -Continue local wound care Continue abx per ID Pain mgmt per medicine Left ankle and foot XR ordered Podiatry will continue to follow patient while in house
--- NOTE | 2017-04-12 18:47 | RAD ---
PROCEDURE: Left Ankle Radiographs. HISTORY: r/o OM COMPARISON: None FINDINGS: BONES: No acute fracture or destructive bony lesion identified. Diffuse osteopenia suggests osteoporosis. JOINTS: Ankle mortise appears normal. Talar dome is intact. No subluxation or dislocation. Mild degenerative changes are seen throughout the ankle joints diffusely. SOFT TISSUES: Normal. OTHER FINDINGS: None. IMPRESSION: Degenerative joint changes are seen diffusely. No acute fracture or destructive bony lesion identified.
--- NOTE | 2017-04-12 18:47 | RAD ---
PROCEDURE: Left Foot Radiographs. HISTORY: r/o OM COMPARISON: None. FINDINGS: BONES: No acute fracture or destructive bony lesion identified. Diffuse osteopenia suggests osteoporosis. JOINTS: Diffuse cortical sclerosis appreciate throughout the forefoot midfoot and hindfoot joints compatible with osteoarthritis. Moderate hallux valgus deformity is appreciated. No dislocation or subluxation grossly evident. SOFT TISSUES: Normal. OTHER FINDINGS: None. IMPRESSION: No acute fracture or dislocation left foot. Degenerative changes are as discussed above and appear diffuse.
[2017-04-13] MEDS: Albuterol-Ipratrop 3 mg / 0.5 (3 ml) UD INH SCH ×3 (01:34→13:38)
--- NOTE | 2017-04-13 09:46 | CP.PCM.PN ---
Subjective - Date & Time of Evaluation Date of Evaluation: 04/13/17 Time of Evaluation: 09:45 - Subjective Subjective: Podiatry Progress Note - Dr. Victor 76 year old female patient seen and evaluated at bedside for left leg cellulitis + pain. Patient hemodynamically stable and NAD. Denies any acute events overnight. Admits the pain to the outside of her left leg is decreasing, and states her ability to ambulate has improved since admission. Denies N/V/F/D/ C/SOB/calf pain. Offers no other pedal complaints at this time. Objective - Vital Signs/Intake and Output Vital Signs (last 24 hours): Temp Pulse Resp BP Pulse Ox 98.9 F 95 H 20 100/56 L 98 04/12/17 23:40 04/12/17 23:40 04/12/17 23:40 04/12/17 23:40 04/12/17 23:40 - Medications Medications: Current Medications Acetaminophen (Tylenol 325mg Tab) 650 mg PO Q4 PRN PRN Reason: Fever >100.4 F Last Admin: 04/11/17 21:39 Dose: 650 mg Albuterol/Ipratropium (Duoneb 3 Mg/0.5 Mg (3 Ml) Ud) 3 ml INH RQ6 [facility] Last Admin: 04/13/17 07:30 Dose: 3 ml Amlodipine Besylate (Norvasc) 5 mg PO DAILY [facility] Last Admin: 04/12/17 09:39 Dose: Not Given Apixaban (Eliquis) 5 mg PO BID [facility] Last Admin: 04/12/17 18:03 Dose: 5 mg Guaifenesin (Robitussin) 100 mg PO Q6 PRN PRN Reason: Cough Last Admin: 04/10/17 21:22 Dose: 100 mg Vancomycin HCl 1 gm/ Sodium (Chloride) 250 mls @ 166.6 mls/hr IVPB Q12H [facility] Last Admin: 04/12/17 20:06 Dose: 166.6 mls/hr Methimazole (Tapazole) 5 mg PO DAILY [facility] Last Admin: 04/12/17 09:39 Dose: 5 mg Multivitamins (Hexavitamin) 1 tab PO DAILY [facility] Last Admin: 04/12/17 09:39 Dose: 1 tab Mupirocin (Bactroban Ointment) 1 gm TOP BID [facility] Last Admin: 04/12/17 18:03 Dose: 1 gm - Labs Labs: 04/12/17 06:11 04/12/17 06:11 PT 15.8 SECONDS (9.7-12.2) H 04/09/17 16:20 INR 1.4 04/09/17 16:20 - Constitutional Appears: Well, Non-toxic, No Acute Distress - Extremities Exam Additional comments: LLE focused physical exam Dressing to left lower leg appears clean/dry/intact VASC: DP and PT pulses palpable. CFT WNL to digits. Temperature gradient warm to warm, with increase in warmth noted to lateral lower 1/3 of leg NEURO: Gross sensation intact DERM: Erythema noted to lateral lower 1/3 of leg extending distally to ankle joint with central area of deep rubor. No open lesion noted. Absent fluctuance, bogginess. ORTHO: Mild tenderness to palpation lateral lower 1/3 of leg - Neurological Exam Neurological Exam: Alert, Awake, Oriented x3 - Psychiatric Exam Psychiatric exam: Depressed Assessment and Plan - Assessment and Plan (Free Text) Assessment: 76 year old female patient with left leg cellulitis + vasculitis Plan: Patient seen and evaluated Discussed with attending, Dr. Victor Afebrile, WBC 5.0 yesterday Bactroban applied to lateral lower leg and dressed with DSD -Continue local wound care Continue abx per ID - Vancomycin Pain mgmt per medicine Left ankle and foot XR reviewed - negative Podiatry will continue to follow patient while in house
[2017-04-13] MEDS: Multiple Vitamins Tab PO SCH (10:02)
[2017-04-13] MEDS: methIMAzole 5 MG TAB PO SCH (10:03)
--- NOTE | 2017-04-13 14:23 | CP.PCM.PN ---
Subjective - Date & Time of Evaluation Date of Evaluation: 04/13/17 Time of Evaluation: 09:00 - Subjective Subjective: less pain and swelling iv rx in progress Objective - Vital Signs/Intake and Output Vital Signs (last 24 hours): Temp Pulse Resp BP Pulse Ox 98.9 F 95 H 20 100/56 L 98 04/12/17 23:40 04/12/17 23:40 04/12/17 23:40 04/12/17 23:40 04/12/17 23:40 - Medications Medications: Current Medications Acetaminophen (Tylenol 325mg Tab) 650 mg PO Q4 PRN PRN Reason: Fever >100.4 F Last Admin: 04/11/17 21:39 Dose: 650 mg Albuterol/Ipratropium (Duoneb 3 Mg/0.5 Mg (3 Ml) Ud) 3 ml INH RQ6 [facility] Last Admin: 04/13/17 13:38 Dose: Not Given Amlodipine Besylate (Norvasc) 5 mg PO DAILY [facility] Last Admin: 04/13/17 10:02 Dose: Not Given Apixaban (Eliquis) 5 mg PO BID [facility] Last Admin: 04/13/17 10:02 Dose: 5 mg Guaifenesin (Robitussin) 100 mg PO Q6 PRN PRN Reason: Cough Last Admin: 04/10/17 21:22 Dose: 100 mg Vancomycin HCl 1 gm/ Sodium (Chloride) 250 mls @ 166.6 mls/hr IVPB Q12H [facility] Last Admin: 04/13/17 10:06 Dose: 166.6 mls/hr Methimazole (Tapazole) 5 mg PO DAILY [facility] Last Admin: 04/13/17 10:03 Dose: 5 mg Multivitamins (Hexavitamin) 1 tab PO DAILY [facility] Last Admin: 04/13/17 10:02 Dose: 1 tab Mupirocin (Bactroban Ointment) 1 gm TOP BID [facility] Last Admin: 04/13/17 10:02 Dose: 1 gm - Labs Labs: 04/12/17 06:11 04/12/17 06:11 PT 15.8 SECONDS (9.7-12.2) H 04/09/17 16:20 INR 1.4 04/09/17 16:20 - Constitutional Appears: Non-toxic, Chronically Ill - Head Exam Head Exam: NORMOCEPHALIC - Eye Exam Eye Exam: PERRL - ENT Exam ENT Exam: Mucous Membranes Dry - Neck Exam Neck Exam: absent: Lymphadenopathy - Respiratory Exam Respiratory Exam: Decreased Breath Sounds - Cardiovascular Exam Cardiovascular Exam: REGULAR RHYTHM - GI/Abdominal Exam GI & Abdominal Exam: Distended, Soft. absent: Tenderness - Rectal Exam Rectal Exam: Deferred - Exam Exam: NORMAL INSPECTION - Extremities Exam Extremities Exam: absent: Calf Tenderness, Pedal Edema - Back Exam Back Exam: absent: CVA tenderness (L), CVA tenderness (R) - Neurological Exam Neurological Exam: Alert, Awake, Oriented x3 - Psychiatric Exam Psychiatric exam: Depressed - Skin Skin Exam: Dry Assessment and Plan (1) Myeloproliferative disorder Status: Acute (2) Peripheral edema Status: Acute (3) Cellulitis and abscess of left leg Status: Acute
[2017-04-13 17:51] VITALS: RESP 20
[2017-04-13] MEDS: guaiFENesin 100 mg/5 ml Syrup UD PO PRN (19:10)
[2017-04-14] MEDS: Albuterol-Ipratrop 3 mg / 0.5 (3 ml) UD INH SCH ×4 (02:02→19:59)
[2017-04-14] MEDS: Multiple Vitamins Tab PO SCH (09:55)
[2017-04-14] MEDS: methIMAzole 5 MG TAB PO SCH (09:58)
--- NOTE | 2017-04-14 11:25 | CP.PCM.PN ---
Subjective - Date & Time of Evaluation Date of Evaluation: 04/14/17 Time of Evaluation: 10:00 - Subjective Subjective: improving possible d/c in am Objective - Vital Signs/Intake and Output Vital Signs (last 24 hours): Temp Pulse Resp BP Pulse Ox 98.1 F 87 20 112/60 96 04/14/17 07:46 04/14/17 07:46 04/14/17 07:46 04/14/17 07:46 04/14/17 07:46 - Medications Medications: Current Medications Acetaminophen (Tylenol 325mg Tab) 650 mg PO Q4 PRN PRN Reason: Fever >100.4 F Last Admin: 04/11/17 21:39 Dose: 650 mg Albuterol/Ipratropium (Duoneb 3 Mg/0.5 Mg (3 Ml) Ud) 3 ml INH RQ6 [facility] Last Admin: 04/14/17 07:35 Dose: Not Given Amlodipine Besylate (Norvasc) 5 mg PO DAILY [facility] Last Admin: 04/14/17 09:55 Dose: 5 mg Apixaban (Eliquis) 5 mg PO BID [facility] Last Admin: 04/14/17 09:55 Dose: 5 mg Guaifenesin (Robitussin) 100 mg PO Q6 PRN PRN Reason: Cough Last Admin: 04/13/17 19:10 Dose: 100 mg Vancomycin HCl 1 gm/ Sodium (Chloride) 250 mls @ 166.6 mls/hr IVPB Q12H [facility] Last Admin: 04/14/17 08:30 Dose: 166.6 mls/hr Methimazole (Tapazole) 5 mg PO DAILY [facility] Last Admin: 04/14/17 09:58 Dose: 5 mg Multivitamins (Hexavitamin) 1 tab PO DAILY [facility] Last Admin: 04/14/17 09:55 Dose: 1 tab Mupirocin (Bactroban Ointment) 1 gm TOP BID [facility] Last Admin: 04/14/17 09:56 Dose: 1 gm - Labs Labs: 04/12/17 06:11 04/12/17 06:11 PT 15.8 SECONDS (9.7-12.2) H 04/09/17 16:20 INR 1.4 04/09/17 16:20 - Constitutional Appears: Non-toxic - Head Exam Head Exam: NORMOCEPHALIC - Eye Exam Eye Exam: PERRL - ENT Exam ENT Exam: Mucous Membranes Dry - Neck Exam Neck Exam: absent: Lymphadenopathy - Respiratory Exam Respiratory Exam: Decreased Breath Sounds - Cardiovascular Exam Cardiovascular Exam: REGULAR RHYTHM Assessment and Plan (1) Myeloproliferative disorder Status: Acute (2) Peripheral edema Status: Acute (3) Cellulitis and abscess of left leg Status: Acute
[2017-04-15] MEDS: Albuterol-Ipratrop 3 mg / 0.5 (3 ml) UD INH SCH ×2 (02:23→07:26)
--- NOTE | 2017-04-15 08:01 | CP.PCM.PN ---
Subjective - Date & Time of Evaluation Date of Evaluation: 04/14/17 Time of Evaluation: 07:58 - Subjective Subjective: cellulitis improving no fever induration subsiding Objective - Vital Signs/Intake and Output Vital Signs (last 24 hours): Temp Pulse Resp BP Pulse Ox 98.3 F 84 20 112/67 98 04/14/17 23:30 04/14/17 23:30 04/14/17 23:30 04/14/17 23:30 04/14/17 23:30 Intake and Output: 04/15/17 04/15/17 06:59 18:59 Intake Total 550 Output Total 500 Balance 50 - Medications Medications: Current Medications Acetaminophen (Tylenol 325mg Tab) 650 mg PO Q4 PRN PRN Reason: Fever >100.4 F Last Admin: 04/11/17 21:39 Dose: 650 mg Albuterol/Ipratropium (Duoneb 3 Mg/0.5 Mg (3 Ml) Ud) 3 ml INH RQ6 [facility] Last Admin: 04/15/17 07:26 Dose: 3 ml Amlodipine Besylate (Norvasc) 5 mg PO DAILY [facility] Last Admin: 04/14/17 09:55 Dose: 5 mg Apixaban (Eliquis) 5 mg PO BID [facility] Last Admin: 04/14/17 17:07 Dose: 5 mg Guaifenesin (Robitussin) 100 mg PO Q6 PRN PRN Reason: Cough Last Admin: 04/13/17 19:10 Dose: 100 mg Vancomycin HCl 1 gm/ Sodium (Chloride) 250 mls @ 166.6 mls/hr IVPB Q12H [facility] Last Admin: 04/14/17 20:25 Dose: 166.6 mls/hr Methimazole (Tapazole) 5 mg PO DAILY [facility] Last Admin: 04/14/17 09:58 Dose: 5 mg Multivitamins (Hexavitamin) 1 tab PO DAILY [facility] Last Admin: 04/14/17 09:55 Dose: 1 tab Mupirocin (Bactroban Ointment) 1 gm TOP BID [facility] Last Admin: 04/14/17 17:07 Dose: 1 gm - Labs Labs: 04/12/17 06:11 04/12/17 06:11 PT 15.8 SECONDS (9.7-12.2) H 04/09/17 16:20 INR 1.4 04/09/17 16:20 - Constitutional Appears: Non-toxic - Head Exam Head Exam: NORMAL INSPECTION - Eye Exam Eye Exam: absent: Scleral icterus - Neck Exam Neck Exam: Full ROM - Respiratory Exam Respiratory Exam: NORMAL BREATHING PATTERN - Cardiovascular Exam Cardiovascular Exam: REGULAR RHYTHM - Extremities Exam Extremities Exam: Pedal Edema Additional comments: cellulitis resolving - Neurological Exam Neurological Exam: Alert Assessment and Plan - Assessment and Plan (Free Text) Assessment: Cellulitis and abscess Myelodysplatic syndrome Plan: Cont abtx Case discussed w/ ID
--- NOTE | 2017-04-15 08:25 | CP.PCM.PN ---
Subjective - Date & Time of Evaluation Date of Evaluation: 04/14/17 Time of Evaluation: 08:23 - Subjective Subjective: improving no adverse effect from Abtx Objective - Vital Signs/Intake and Output Vital Signs (last 24 hours): Temp Pulse Resp BP Pulse Ox 98.3 F 84 20 112/67 98 04/14/17 23:30 04/14/17 23:30 04/14/17 23:30 04/14/17 23:30 04/14/17 23:30 Intake and Output: 04/15/17 04/15/17 06:59 18:59 Intake Total 550 Output Total 500 Balance 50 - Medications Medications: Current Medications Acetaminophen (Tylenol 325mg Tab) 650 mg PO Q4 PRN PRN Reason: Fever >100.4 F Last Admin: 04/11/17 21:39 Dose: 650 mg Albuterol/Ipratropium (Duoneb 3 Mg/0.5 Mg (3 Ml) Ud) 3 ml INH RQ6 [facility] Last Admin: 04/15/17 07:26 Dose: 3 ml Amlodipine Besylate (Norvasc) 5 mg PO DAILY [facility] Last Admin: 04/14/17 09:55 Dose: 5 mg Apixaban (Eliquis) 5 mg PO BID [facility] Last Admin: 04/14/17 17:07 Dose: 5 mg Guaifenesin (Robitussin) 100 mg PO Q6 PRN PRN Reason: Cough Last Admin: 04/13/17 19:10 Dose: 100 mg Vancomycin HCl 1 gm/ Sodium (Chloride) 250 mls @ 166.6 mls/hr IVPB Q12H [facility] Last Admin: 04/14/17 20:25 Dose: 166.6 mls/hr Methimazole (Tapazole) 5 mg PO DAILY [facility] Last Admin: 04/14/17 09:58 Dose: 5 mg Multivitamins (Hexavitamin) 1 tab PO DAILY [facility] Last Admin: 04/14/17 09:55 Dose: 1 tab Mupirocin (Bactroban Ointment) 1 gm TOP BID [facility] Last Admin: 04/14/17 17:07 Dose: 1 gm - Labs Labs: 04/12/17 06:11 04/12/17 06:11 PT 15.8 SECONDS (9.7-12.2) H 04/09/17 16:20 INR 1.4 04/09/17 16:20 - Constitutional Appears: Non-toxic - Head Exam Head Exam: NORMAL INSPECTION - Eye Exam Eye Exam: absent: Scleral icterus - Neck Exam Neck Exam: Full ROM - Respiratory Exam Respiratory Exam: NORMAL BREATHING PATTERN - Cardiovascular Exam Cardiovascular Exam: REGULAR RHYTHM - GI/Abdominal Exam GI & Abdominal Exam: Soft. absent: Tenderness - Extremities Exam Extremities Exam: Pedal Edema Additional comments: cellulitis and induration resolving Assessment and Plan - Assessment and Plan (Free Text) Assessment: Cellulitis and abscess of LE Myelodysplastic syndrome Plan: Cont abtx as ID
--- NOTE | 2017-04-15 08:29 | CP.PCM.PN ---
Subjective - Date & Time of Evaluation Date of Evaluation: 04/13/17 Time of Evaluation: 08:27 - Subjective Subjective: less pain, less redness of cellulitis Objective - Vital Signs/Intake and Output Vital Signs (last 24 hours): Temp Pulse Resp BP Pulse Ox 98.3 F 84 20 112/67 98 04/14/17 23:30 04/14/17 23:30 04/14/17 23:30 04/14/17 23:30 04/14/17 23:30 Intake and Output: 04/15/17 04/15/17 06:59 18:59 Intake Total 550 Output Total 500 Balance 50 - Medications Medications: Current Medications Acetaminophen (Tylenol 325mg Tab) 650 mg PO Q4 PRN PRN Reason: Fever >100.4 F Last Admin: 04/11/17 21:39 Dose: 650 mg Albuterol/Ipratropium (Duoneb 3 Mg/0.5 Mg (3 Ml) Ud) 3 ml INH RQ6 [facility] Last Admin: 04/15/17 07:26 Dose: 3 ml Amlodipine Besylate (Norvasc) 5 mg PO DAILY [facility] Last Admin: 04/14/17 09:55 Dose: 5 mg Apixaban (Eliquis) 5 mg PO BID [facility] Last Admin: 04/14/17 17:07 Dose: 5 mg Guaifenesin (Robitussin) 100 mg PO Q6 PRN PRN Reason: Cough Last Admin: 04/13/17 19:10 Dose: 100 mg Vancomycin HCl 1 gm/ Sodium (Chloride) 250 mls @ 166.6 mls/hr IVPB Q12H [facility] Last Admin: 04/14/17 20:25 Dose: 166.6 mls/hr Methimazole (Tapazole) 5 mg PO DAILY [facility] Last Admin: 04/14/17 09:58 Dose: 5 mg Multivitamins (Hexavitamin) 1 tab PO DAILY [facility] Last Admin: 04/14/17 09:55 Dose: 1 tab Mupirocin (Bactroban Ointment) 1 gm TOP BID [facility] Last Admin: 04/14/17 17:07 Dose: 1 gm - Labs Labs: 04/12/17 06:11 04/12/17 06:11 PT 15.8 SECONDS (9.7-12.2) H 04/09/17 16:20 INR 1.4 04/09/17 16:20 - Head Exam Head Exam: ATRAUMATIC - Eye Exam Eye Exam: absent: Scleral icterus - Neck Exam Neck Exam: absent: Lymphadenopathy - Respiratory Exam Respiratory Exam: Clear to Ausculation Bilateral - Cardiovascular Exam Cardiovascular Exam: REGULAR RHYTHM - GI/Abdominal Exam GI & Abdominal Exam: Soft. absent: Tenderness - Extremities Exam Extremities Exam: absent: Pedal Edema Assessment and Plan - Assessment and Plan (Free Text) Assessment: Cellulitis and abscess Myelodysplastic syndrome Plan: Cont meds Cont abtx
--- NOTE | 2017-04-15 08:35 | CP.PCM.PN ---
Subjective - Date & Time of Evaluation Date of Evaluation: 04/12/17 Time of Evaluation: 08:32 - Subjective Subjective: improving no sob no palpitations Objective - Vital Signs/Intake and Output Vital Signs (last 24 hours): Temp Pulse Resp BP Pulse Ox 98.3 F 84 20 112/67 98 04/14/17 23:30 04/14/17 23:30 04/14/17 23:30 04/14/17 23:30 04/14/17 23:30 Intake and Output: 04/15/17 04/15/17 06:59 18:59 Intake Total 550 Output Total 500 Balance 50 - Medications Medications: Current Medications Acetaminophen (Tylenol 325mg Tab) 650 mg PO Q4 PRN PRN Reason: Fever >100.4 F Last Admin: 04/11/17 21:39 Dose: 650 mg Albuterol/Ipratropium (Duoneb 3 Mg/0.5 Mg (3 Ml) Ud) 3 ml INH RQ6 [facility] Last Admin: 04/15/17 07:26 Dose: 3 ml Amlodipine Besylate (Norvasc) 5 mg PO DAILY [facility] Last Admin: 04/14/17 09:55 Dose: 5 mg Apixaban (Eliquis) 5 mg PO BID [facility] Last Admin: 04/14/17 17:07 Dose: 5 mg Guaifenesin (Robitussin) 100 mg PO Q6 PRN PRN Reason: Cough Last Admin: 04/13/17 19:10 Dose: 100 mg Vancomycin HCl 1 gm/ Sodium (Chloride) 250 mls @ 166.6 mls/hr IVPB Q12H [facility] Last Admin: 04/14/17 20:25 Dose: 166.6 mls/hr Methimazole (Tapazole) 5 mg PO DAILY [facility] Last Admin: 04/14/17 09:58 Dose: 5 mg Multivitamins (Hexavitamin) 1 tab PO DAILY [facility] Last Admin: 04/14/17 09:55 Dose: 1 tab Mupirocin (Bactroban Ointment) 1 gm TOP BID [facility] Last Admin: 04/14/17 17:07 Dose: 1 gm - Labs Labs: 04/12/17 06:11 04/12/17 06:11 PT 15.8 SECONDS (9.7-12.2) H 04/09/17 16:20 INR 1.4 04/09/17 16:20 - Constitutional Appears: No Acute Distress - Eye Exam Eye Exam: absent: Scleral icterus - Neck Exam Neck Exam: Full ROM - Respiratory Exam Respiratory Exam: Clear to Ausculation Bilateral - Cardiovascular Exam Cardiovascular Exam: REGULAR RHYTHM - GI/Abdominal Exam GI & Abdominal Exam: Soft. absent: Tenderness - Extremities Exam Extremities Exam: Pedal Edema Additional comments: +cellulitis w/ abscess of LE - Neurological Exam Neurological Exam: Alert Assessment and Plan - Assessment and Plan (Free Text) Assessment: Cellulitis and abscess Myelodysplastic syndrome Hx of PE Plan: Cont abtx Cont anticoagulation
--- NOTE | 2017-04-15 08:41 | CP.PCM.PN ---
Subjective - Date & Time of Evaluation Date of Evaluation: 04/11/17 Time of Evaluation: 08:38 - Subjective Subjective: dyspnea on exertion +painful induration and cellulitis of LE Objective - Vital Signs/Intake and Output Vital Signs (last 24 hours): Temp Pulse Resp BP Pulse Ox 98.3 F 84 20 112/67 98 04/14/17 23:30 04/14/17 23:30 04/14/17 23:30 04/14/17 23:30 04/14/17 23:30 Intake and Output: 04/15/17 04/15/17 06:59 18:59 Intake Total 550 Output Total 500 Balance 50 - Medications Medications: Current Medications Acetaminophen (Tylenol 325mg Tab) 650 mg PO Q4 PRN PRN Reason: Fever >100.4 F Last Admin: 04/11/17 21:39 Dose: 650 mg Albuterol/Ipratropium (Duoneb 3 Mg/0.5 Mg (3 Ml) Ud) 3 ml INH RQ6 [facility] Last Admin: 04/15/17 07:26 Dose: 3 ml Amlodipine Besylate (Norvasc) 5 mg PO DAILY [facility] Last Admin: 04/14/17 09:55 Dose: 5 mg Apixaban (Eliquis) 5 mg PO BID [facility] Last Admin: 04/14/17 17:07 Dose: 5 mg Guaifenesin (Robitussin) 100 mg PO Q6 PRN PRN Reason: Cough Last Admin: 04/13/17 19:10 Dose: 100 mg Vancomycin HCl 1 gm/ Sodium (Chloride) 250 mls @ 166.6 mls/hr IVPB Q12H [facility] Last Admin: 04/14/17 20:25 Dose: 166.6 mls/hr Methimazole (Tapazole) 5 mg PO DAILY [facility] Last Admin: 04/14/17 09:58 Dose: 5 mg Multivitamins (Hexavitamin) 1 tab PO DAILY [facility] Last Admin: 04/14/17 09:55 Dose: 1 tab Mupirocin (Bactroban Ointment) 1 gm TOP BID [facility] Last Admin: 04/14/17 17:07 Dose: 1 gm - Labs Labs: 04/12/17 06:11 04/12/17 06:11 PT 15.8 SECONDS (9.7-12.2) H 04/09/17 16:20 INR 1.4 04/09/17 16:20 - Constitutional Appears: Non-toxic - Head Exam Head Exam: NORMAL INSPECTION - Eye Exam Eye Exam: absent: Scleral icterus - Neck Exam Neck Exam: Full ROM - Respiratory Exam Respiratory Exam: Decreased Breath Sounds - Cardiovascular Exam Cardiovascular Exam: REGULAR RHYTHM - GI/Abdominal Exam GI & Abdominal Exam: Soft, Tenderness - Extremities Exam Extremities Exam: Pedal Edema Additional comments: +cellulitis and abscess - Neurological Exam Neurological Exam: Alert Assessment and Plan - Assessment and Plan (Free Text) Assessment: SOB - hx of PE Cellulitis and abscess of LE Myelodysplastic syndrome Plan: Pulmonary consult Cont anticoagulation Nebulizer tx
--- NOTE | 2017-04-15 08:45 | CP.PCM.CON ---
History of Present Illness - History of Present Illness History of Present Illness: Reason for consult: SOB hx of pulmonary embolism CC : This is a Past Patient History - Infectious Disease Hx of Infectious Diseases: None - Past Medical History & Family History Past Medical History?: Yes - Past Social History Smoking Status: Never Smoked - CARDIAC Hx Hypercholesterolemia: Yes Hx Hypertension: Yes - PULMONARY Hx Respiratory Disorders: No - NEUROLOGICAL Hx Neurological Disorder: No - HEENT Hx HEENT Problems: No - RENAL Hx Chronic Kidney Disease: No - ENDOCRINE/METABOLIC Hx Hypothyroidism: Yes - HEMATOLOGICAL/ONCOLOGICAL Hx Blood Disorders: Yes Other/Comment: MDS- MYELODYSPLASTIC SYNDROME - INTEGUMENTARY Hx Dermatological Problems: No - MUSCULOSKELETAL/RHEUMATOLOGICAL Hx Musculoskeletal Disorders: Yes Hx Falls: Yes - GASTROINTESTINAL Hx Gastrointestinal Disorders: Yes Hx Gastritis: Yes - GENITOURINARY/GYNECOLOGICAL Hx Genitourinary Disorders: No - PSYCHIATRIC Hx Psychophysiologic Disorder: No Hx Substance Use: No - SURGICAL HISTORY Hx Surgeries: No - ANESTHESIA Hx Anesthesia: No Meds Home Medications: Home Medication List Medication Instructions Recorded Confirmed Type Mupirocin 2% Ointment [Bactroban 1 gm TOP BID 7 Days #1 tube 04/14/17 Rx Ointment] Allergies/Adverse Reactions: Allergies Allergy/AdvReac Type Severity Reaction Status Date / Time No Known Allergies Allergy Verified 04/09/17 14:51 - Medications Medications: Current Medications Acetaminophen (Tylenol 325mg Tab) 650 mg PO Q4 PRN PRN Reason: Fever >100.4 F Last Admin: 04/11/17 21:39 Dose: 650 mg Albuterol/Ipratropium (Duoneb 3 Mg/0.5 Mg (3 Ml) Ud) 3 ml INH RQ6 [facility] Last Admin: 04/15/17 07:26 Dose: 3 ml Amlodipine Besylate (Norvasc) 5 mg PO DAILY [facility] Last Admin: 04/14/17 09:55 Dose: 5 mg Apixaban (Eliquis) 5 mg PO BID [facility] Last Admin: 04/14/17 17:07 Dose: 5 mg Guaifenesin (Robitussin) 100 mg PO Q6 PRN PRN Reason: Cough Last Admin: 04/13/17 19:10 Dose: 100 mg Vancomycin HCl 1 gm/ Sodium (Chloride) 250 mls @ 166.6 mls/hr IVPB Q12H [facility] Last Admin: 04/14/17 20:25 Dose: 166.6 mls/hr Methimazole (Tapazole) 5 mg PO DAILY [facility] Last Admin: 04/14/17 09:58 Dose: 5 mg Multivitamins (Hexavitamin) 1 tab PO DAILY [facility] Last Admin: 04/14/17 09:55 Dose: 1 tab Mupirocin (Bactroban Ointment) 1 gm TOP BID [facility] Last Admin: 04/14/17 17:07 Dose: 1 gm Results - Vital Signs Recent Vital Signs: Last Vital Signs Temp 98.3 F 04/14/17 23:30 Pulse 84 04/14/17 23:30 Resp 20 04/14/17 23:30 BP 112/67 04/14/17 23:30 Pulse Ox 98 04/14/17 23:30 - Labs Result Diagrams: 04/12/17 06:11 04/12/17 06:11 Assessment & Plan - Assessment and Plan (Free Text) Assessment: Hx of Pulmonary embolism Myelodysplastic syndrome Cellulitis and abscess Plan: Cont anticoagulation ABTX as per ID
[2017-04-15 09:03] VITALS: BP 123/72; PULSE 76; TEMP 98; O2SAT 96
[2017-04-15] MEDS: Multiple Vitamins Tab PO SCH (10:53)
[2017-04-15] MEDS: methIMAzole 5 MG TAB PO SCH (10:53)
--- NOTE | 2017-04-15 12:12 | CP.PCM.PN ---
Subjective - Date & Time of Evaluation Date of Evaluation: 04/15/17 Time of Evaluation: 12:11 - Subjective Subjective: PATIENT WAS ADMITTED PERIPHERAL EDEMA R/O DVT; PATIENT AAOX3 DENIES ANY LEG PAIN , CHEST PAIN OR SOB NO SIGN OF DISTRESS Objective - Vital Signs/Intake and Output Vital Signs (last 24 hours): Temp Pulse Resp BP Pulse Ox 98.0 F 76 20 123/72 96 04/15/17 09:02 04/15/17 09:02 04/15/17 09:02 04/15/17 09:02 04/15/17 09:02 Intake and Output: 04/15/17 04/15/17 06:59 18:59 Intake Total 550 Output Total 500 Balance 50 - Medications Medications: Current Medications Acetaminophen (Tylenol 325mg Tab) 650 mg PO Q4 PRN PRN Reason: Fever >100.4 F Last Admin: 04/11/17 21:39 Dose: 650 mg Amlodipine Besylate (Norvasc) 5 mg PO DAILY [facility] Last Admin: 04/15/17 10:53 Dose: 5 mg Apixaban (Eliquis) 5 mg PO BID [facility] Last Admin: 04/15/17 10:53 Dose: 5 mg Guaifenesin (Robitussin) 100 mg PO Q6 PRN PRN Reason: Cough Last Admin: 04/13/17 19:10 Dose: 100 mg Vancomycin HCl 1 gm/ Sodium (Chloride) 250 mls @ 166.6 mls/hr IVPB Q12H [facility] Last Admin: 04/14/17 20:25 Dose: 166.6 mls/hr Methimazole (Tapazole) 5 mg PO DAILY [facility] Last Admin: 04/15/17 10:53 Dose: 5 mg Multivitamins (Hexavitamin) 1 tab PO DAILY [facility] Last Admin: 04/15/17 10:53 Dose: 1 tab Mupirocin (Bactroban Ointment) 1 gm TOP BID [facility] Last Admin: 04/14/17 17:07 Dose: 1 gm - Labs Labs: 04/12/17 06:11 04/12/17 06:11 PT 15.8 SECONDS (9.7-12.2) H 04/09/17 16:20 INR 1.4 04/09/17 16:20 Assessment and Plan - Assessment and Plan (Free Text) Assessment: A/P PATIENT WAS SEEN AND EXAMINED AT THE BEDSIDE; LUNG SOUND CLEAR; VENOUS DOPPLER SHOW NO SIGN OF DVT; XRAY ANKLE SHOW NO SIGN OF OM; REDNESS NOTED AT THE ANKLE SITE DISCUSS WITH DR ZACH VALENTE THE PATIENT TO GO BACTROBEN DISCUSS WITH DR BLACK WHO AGREE AND CLEAR FOR DC FOLLOW UP WITH DR BLACK IN A WEEK AT HIS OFFICE ----CALL HIS OFFICE FOR APPOINTMENT FOLLOW UP WITH DR SERRANO IN IN 1-2 WEEK ---CALL HIS OFFICE FOR APPOINTMENT FOLLOW UP WITH YOUR TESTING TECH PER YOUR APPOINTMENT CONTINUE YOUR HOME MEDICATION PER MED RECS NEW RX GIVEN: BACTROPAN 1 G BID FOR [address] BLACK OR GO TO THE EMERGENCY ROOM IF SYMPTOMS RETURN OR WORSENING DISCUSS WITH PATIENT AND PATIENT'S DAUGHTER WHO AGREE AND VERBALIZED UNDERSTANDING
--- NOTE | 2017-04-15 12:54 | CP.PCM.PN ---
Subjective - Date & Time of Evaluation Date of Evaluation: 04/15/17 Time of Evaluation: 08:50 - Subjective Subjective: Podiatry Progress Note - Dr. Victor 76 year old female patient seen and evaluated at bedside, with attending Dr. Victor for resolving left leg cellulitis. Pt reports pain has resolved at the area of cheif complaint and the redness and swelling has improved approximately 90%. Denies any acute events overnight. Pt states her ability to ambulate has greatly improved since admission, and has returned to unimpeded levels. Denies N /V/F/D/C/SOB/calf pain. Offers no other pedal complaints at this time. Objective - Vital Signs/Intake and Output Vital Signs (last 24 hours): Temp Pulse Resp BP Pulse Ox 98.0 F 76 20 123/72 96 04/15/17 09:02 04/15/17 09:02 04/15/17 09:02 04/15/17 09:02 04/15/17 09:02 Intake and Output: 04/15/17 04/15/17 06:59 18:59 Intake Total 550 Output Total 500 Balance 50 - Medications Medications: Current Medications Acetaminophen (Tylenol 325mg Tab) 650 mg PO Q4 PRN PRN Reason: Fever >100.4 F Last Admin: 04/11/17 21:39 Dose: 650 mg Amlodipine Besylate (Norvasc) 5 mg PO DAILY [facility] Last Admin: 04/15/17 10:53 Dose: 5 mg Apixaban (Eliquis) 5 mg PO BID [facility] Last Admin: 04/15/17 10:53 Dose: 5 mg Guaifenesin (Robitussin) 100 mg PO Q6 PRN PRN Reason: Cough Last Admin: 04/13/17 19:10 Dose: 100 mg Vancomycin HCl 1 gm/ Sodium (Chloride) 250 mls @ 166.6 mls/hr IVPB Q12H [facility] Last Admin: 04/14/17 20:25 Dose: 166.6 mls/hr Methimazole (Tapazole) 5 mg PO DAILY [facility] Last Admin: 04/15/17 10:53 Dose: 5 mg Multivitamins (Hexavitamin) 1 tab PO DAILY [facility] Last Admin: 04/15/17 10:53 Dose: 1 tab Mupirocin (Bactroban Ointment) 1 gm TOP BID [facility] Last Admin: 04/14/17 17:07 Dose: 1 gm - Labs Labs: 04/12/17 06:11 04/12/17 06:11 PT 15.8 SECONDS (9.7-12.2) H 04/09/17 16:20 INR 1.4 04/09/17 16:20 - Constitutional Appears: Well, Non-toxic, No Acute Distress - Extremities Exam Additional comments: LLE focused physical exam No dressing inplace at time of visit. VASC: DP and PT pulses palpable. CFT WNL to digits. Temperature gradient warm to warm, with minor focal warmth noted to lateral lower 1/3 of leg, proximal to lateral malleollus. NEURO: Gross sensation intact DERM: Focal patch measuring 4x2cm of non-blancable, erythema noted to lateral lower 1/3 of leg, proximal to ankle joint, absent streaking. No open lesion noted. Absent fluctuance, bogginess. Skin wrinkle test reveals resolving edema. ORTHO: Mild tenderness to palpation lateral lower 1/3 of leg - Neurological Exam Neurological Exam: Alert, Awake, Oriented x3 - Psychiatric Exam Psychiatric exam: Normal Affect, Normal Mood Assessment and Plan - Assessment and Plan (Free Text) Assessment: 76 year old female patient with left leg cellulitis + vasculitis Plan: Patient seen and evaluated with attending, Dr. Victor present. Afebrile. Discontinueing local wound care as no soft tissue openeing noted. Cellulitis resolving. Continue abx per ID Pain mgmt per medicine Podiatry will continue to follow patient while in house
== END 2017-04-15 13:22 | disposition home or self-care (01) | DRG 603 ==
LOC: C.ER 14:18 → C.9E 16:57 → OBSVTOIN 21:10 → C.6T 04-10 14:49
PROVIDERS: ADMIT Internal Medicine; ATTEND Internal Medicine
DX: L02.416 Cutaneous abscess of left lower limb (principal); C94.6 Myelodysplastic disease, not elsewhere classified; I77.6 Arteritis, unspecified; D64.9 Anemia, unspecified; L03.116 Cellulitis of left lower limb; J98.01 Acute bronchospasm; E78.00 Pure hypercholesterolemia, unspecified; I10 Essential (primary) hypertension; K29.70 Gastritis, unspecified, without bleeding; E05.90 Thyrotoxicosis, unspecified without thyrotoxic crisis or storm; Z79.01 Long term (current) use of anticoagulants; Z86.711 Personal history of pulmonary embolism

== ENCOUNTER 2017-04-21 17:48 | Inpatient (IN) | payer MEDICARE, OTHER ==
[2017-04-21 18:05] VITALS: BMI 23.8
[2017-04-21] MEDS ORDERED: Sodium Chloride 0.9% 1,000 ML IV STA (19:20)
[2017-04-21 19:40] LABS: VENOUS BLOOD GAS PCO2 32 mmHg (40-60); VENOUS BLOOD PH 7.45 (7.32-7.43)
[2017-04-21 19:53] LABS: HEMATOCRIT 25.6 % (34.0-47.0); INR 1.7; MEAN CORPUSCULAR HEMOGLOBIN 24.5 pg (27.0-31.0); MEAN CORPUSCULAR HGB CONC 31.4 g/dL (33.0-37.0); MEAN PLATELET VOLUME 9.6 fL (7.2-11.7); RED CELL DISTRIBUTION WIDTH 33.1 % (11.5-14.5); WHITE BLOOD COUNT 7.5 K/uL (4.8-10.8)
[2017-04-21] MEDS ORDERED: Sodium Chloride 0.9% 1,000 ML ONE (20:02)
[2017-04-21 20:09] LABS: ALKALINE PHOSPHATASE 101 U/L (38-126); ALT/SGPT 53 U/L (9-52); AST/SGOT 34 U/L (14-36); BILIRUBIN,TOTAL 0.8 mg/dL (0.2-1.3); BLOOD UREA NITROGEN 11 mg/dL (7-17); CALCIUM 7.7 mg/dl (8.6-10.4); CARBON DIOXIDE 24 mmol/L (22-30); CHLORIDE 95 mmol/L (98-107); GFR AFRICAN-AMERICAN > 60; GLUCOSE,RANDOM 119 mg/dL (65-105); POTASSIUM 3.6 mmol/L (3.6-5.2); SODIUM 128 mmol/L (132-148); TOTAL PROTEIN 7.2 g/dL (6.3-8.3)
[2017-04-21] MEDS ORDERED: Sodium Chloride 0.9% 1,000 ML IV ONE (20:13)
[2017-04-21 20:32] LABS: RBC URINE 1 /hpf (0-3); URINE BILIRUBIN NEGATIVE (NEGATIVE); URINE BLOOD NEGATIVE (NEGATIVE); URINE COLOR YELLOW (YELLOW); URINE GLUCOSE (UA) NORMAL (Normal); URINE KETONE NEGATIVE (NEGATIVE); URINE LEUKOCYTE ESTERASE NEG Leu/uL (Negative); URINE PROTEIN 1+ mg/dL (NEGATIVE); URINE UROBILINOGEN NORMAL mg/dL (0.2-1.0); WBC URINE 4 /hpf (0-5)
[2017-04-21] MEDS ORDERED: cefTRIAXone IV 1 gm in Dextros 50 ML IV ONE (21:39)
[2017-04-21] MEDS ORDERED: Azithromycin 500 MG in Sodium Chloride 0.9% 250 ML IV STA (21:39)
--- NOTE | 2017-04-21 21:44 | C.PDOC ---
History Of Present Illness 76 year old female present to the ER with daughter for a complaint of SOB and weakness since yesterday, associated with fever that has been treated with tylenol. Patient has a Hx of pleuro effusion. Denies nausea or vomiting. Time Seen by Provider: 04/21/17 19:38 Chief Complaint (Nursing): Chest Pain History Per: Patient History/Exam Limitations: no limitations Onset/Duration Of Symptoms: Hrs Current Symptoms Are (Timing): Still Present Associated Symptoms: Dyspnea. denies: Nausea, Diaphoresis, Syncope Modifying Factors: None Exacerbating Factors: None Alleviating Factors: None Recent travel outside of the [place]: No Past Medical History Reviewed: Historical Data, Nursing Documentation, Vital Signs Vital Signs: Last Vital Signs Temp 99.7 F H 04/21/17 19:36 Pulse 89 04/21/17 20:40 Resp 18 04/21/17 20:40 BP 85/46 L 04/21/17 20:40 Pulse Ox 98 04/21/17 22:32 - Medical History PMH: Gastritis, HTN, Hypercholesterolemia, Hyperthyroidism, Hypothyroidism Surgical History: No Surg Hx Family History: States: Unknown Family Hx - Social History Hx Alcohol Use: No Hx Substance Use: No - Immunization History Hx Tetanus Toxoid Vaccination: No Hx Influenza Vaccination: No Hx Pneumococcal Vaccination: No Review Of Systems Constitutional: Positive for: Fever, Weakness Respiratory: Positive for: Shortness of Breath Gastrointestinal: Negative for: Nausea, Vomiting Physical Exam - Physical Exam Appears: Chronically Ill Skin: Warm, Dry, Pale, Other (Skin tenting) Head: Atraumatic, Normacephalic Eye(s): bilateral: Conjunctiva Pale Oral Mucosa: Moist Neck: Normal, Supple Chest: Symmetrical, No Tenderness Cardiovascular: Rhythm Regular Respiratory: Normal Breath Sounds, No Rales, No Rhonchi, No Wheezing Gastrointestinal/Abdominal: Soft, No Tenderness Neurological/Psych: Oriented x3, Normal Speech ED Course And Treatment - Laboratory Results Result Diagrams: 04/21/17 19:40 04/21/17 19:40 Lab Interpretation: Abnormal (anemia, c/w dehydration) ECG: Interpreted By Ok ECG Rhythm: Sinus Tachycardia ECG Interpretation: Abnormal Rate From EC O2 Sat by Pulse Oximetry: 98 Pulse Ox Interpretation: Normal - Radiology CXR: Interpreted by Ok CXR Interpretation: Yes: Infiltrates (+RLL) Progress Note: ns x 2 liter bolus, rocephin, azithromycin Reevaluation Time: 21:45 Reassessment Condition: Improved - Physician Consult Information Outcome Of Conversation: 2144: d/w PMD Dr. Sloan hendricks to admit to Dr. Hernandez. 2229: d/w ruthie Wall to admit. Medical Decision Making Medical Decision Making: fever prob lower resp tract infection, faint PNA RLL on cxr previously on Azithromycin for 3 days, ? viral Empiric coverage with Rocephin and continued Azithro dehydration, hyponatrmia/hypochloremia- continue hydration Anemia: Hgb 8, h/o anemia, and will probably appear worse with hydration Consider transfusion overnight. Disposition Doctor Will See Patient In The: Hospital Counseled Patient/Family Regarding: Studies Performed, Diagnosis - Disposition Disposition: HOSPITALIZED Disposition Time: 22:30 Condition: GOOD - Clinical Impression Clinical Impression: Myelodysplasia (myelodysplastic syndrome), Symptomatic anemia, Lower respiratory infection, Dehydration - Scribe Statement The provider has reviewed the documentation as recorded by the Venita oDbbins All medical record entries made by the Venita were at my direction and personally dictated by me. I have reviewed the chart and agree that the record accurately reflects my personal performance of the history, physical exam, medical decision making, and the department course for this patient. I have also personally directed, reviewed, and agree with the discharge instructions and disposition.
[2017-04-21] MEDS ORDERED: cefTRIAXone 1 gm 1 GM/100 ML BAG IVPB ONE (23:00)
[2017-04-22] MEDS ORDERED: Epoetin Alfa Dialysis 2000 U/ML Inj SC ONE (00:23)
[2017-04-22] MEDS: Dextrose 5%/0.45% NS 1,000 ML IV SCH ×3 (00:54→17:49)
[2017-04-22] MEDS ORDERED: Vancomycin 1 gm/NS 200 ml 1 GM/200 ML BAG IVPB STA (01:11)
--- NOTE | 2017-04-22 08:31 | RAD ---
HISTORY: cough/fever, ? PNA COMPARISON: 04/09/2017 FINDINGS: LUNGS: Mild patchy increased markings at both lung bases. Question minimal blunting of the left costophrenic angle. Clinical correlation. Mild diffuse increased interstitial lung markings. PLEURA: As above. CARDIOVASCULAR: Tortuous aorta. Calcification at the aortic knob. OSSEOUS STRUCTURES: No significant abnormalities. VISUALIZED UPPER ABDOMEN: Normal. OTHER FINDINGS: None. IMPRESSION: Mild patchy increased markings at both lung bases. Question minimal blunting of the left costophrenic angle. Clinical correlation. Mild diffuse increased interstitial lung markings.
--- NOTE | 2017-04-22 09:00 | CP.PCM.CON ---
History of Present Illness - History of Present Illness History of Present Illness: CC coughing sob Past Patient History - Infectious Disease Hx of Infectious Diseases: None - Past Medical History & Family History Past Medical History?: Yes - Past Social History Smoking Status: Former Smoker - CARDIAC Hx Cardiac Disorders: Yes Hx Hypercholesterolemia: Yes Hx Hypertension: Yes - PULMONARY Hx Respiratory Disorders: No - NEUROLOGICAL Hx Neurological Disorder: No - HEENT Hx HEENT Problems: No - RENAL Hx Chronic Kidney Disease: No - ENDOCRINE/METABOLIC Hx Endocrine Disorders: Yes Hx Hyperthyroidism: Yes Hx Hypothyroidism: Yes - HEMATOLOGICAL/ONCOLOGICAL Hx Blood Disorders: Yes Other/Comment: MDS- MYELODYSPLASTIC SYNDROME - INTEGUMENTARY Hx Dermatological Problems: No - MUSCULOSKELETAL/RHEUMATOLOGICAL Hx Musculoskeletal Disorders: Yes Hx Falls: Yes - GASTROINTESTINAL Hx Gastrointestinal Disorders: Yes Hx Gastritis: Yes - GENITOURINARY/GYNECOLOGICAL Hx Genitourinary Disorders: No - PSYCHIATRIC Hx Psychophysiologic Disorder: No Hx Substance Use: No - SURGICAL HISTORY Hx Surgeries: No - ANESTHESIA Hx Anesthesia: No Meds Allergies/Adverse Reactions: Allergies Allergy/AdvReac Type Severity Reaction Status Date / Time No Known Allergies Allergy Verified 04/21/17 18:02 - Medications Medications: Current Medications Amlodipine Besylate (Norvasc) 5 mg PO DAILY [facility] Apixaban (Eliquis) 5 mg PO BID [facility] Epoetin Woody (Procrit) 1 u SC ONCE ONE Stop: 04/25/17 09:01 Cefepime HCl 1 gm/ Dextrose 50 mls @ 100 mls/hr IVPB Q12H [facility] Last Admin: 04/22/17 01:29 Dose: 100 mls/hr Dextrose/Sodium Chloride (Dextrose 5%/0.45% Ns 1000 Ml) 1,000 mls @ 60 mls/hr IV .[id number] [facility] Last Admin: 04/22/17 00:54 Dose: Not Given Methimazole (Tapazole) 5 mg PO DAILY [facility] Multivitamins (Hexavitamin) 1 tab PO DAILY [facility] Mupirocin (Bactroban Ointment) 1 gm TOP BID [facility] Physical Exam - Constitutional Additional comments: SOB - Head Exam Head Exam: NORMAL INSPECTION - Eye Exam Eye Exam: absent: Scleral icterus - Neck Exam Neck exam: Positive for: Full Rom - Respiratory Exam Respiratory Exam: Accessory Muscle Use, Decreased Breath Sounds. absent: Rhonchi, Wheezes - Cardiovascular Exam Cardiovascular Exam: Tachycardia, REGULAR RHYTHM - GI/Abdominal Exam GI & Abdominal Exam: Soft. absent: Tenderness - Extremities Exam Extremities exam: Positive for: calf tenderness. Negative for: tenderness - Neurological Exam Neurological exam: Alert Results - Vital Signs Recent Vital Signs: Last Vital Signs Temp 99.1 F 04/22/17 07:38 Pulse 91 H 04/22/17 07:38 Resp 20 04/22/17 07:38 BP 98/57 L 04/22/17 07:38 Pulse Ox 100 04/22/17 07:38 - Labs Result Diagrams: 04/21/17 19:40 04/21/17 19:40 Labs: Laboratory Results - last 24 hr 04/21/17 04/21/17 04/21/17 07:35 19:40 19:40 WBC 7.5 RBC 3.28 L Hgb 8.0 L Hct 25.6 L MCV 78.0 L MCH 24.5 L MCHC 31.4 L RDW 33.1 H Plt Count 725 H D MPV 9.6 Differential Comment PT 19.5 H INR 1.7 APTT 37 H pO2 43 VBG pH 7.45 H VBG pCO2 32 L VBG HCO3 23.7 VBG Total CO2 23.2 VBG O2 Sat (Calc) 83.2 H VBG Base Excess -1.0 L VBG Potassium 3.2 L Sodium 131.0 L Chloride 101.0 Glucose 117 H Lactate 1.0 Potassium Carbon Dioxide Anion Gap BUN Creatinine Est GFR ( Amer) Est GFR (Non-Af Amer) Random Glucose Calcium Total Bilirubin AST ALT Alkaline Phosphatase Total Creatine Kinase CK-MB (Mass) Troponin I Total Protein Albumin Globulin Albumin/Globulin Ratio Venous Blood Potassium 3.2 L Urine Color Urine Clarity Urine pH Ur Specific Gratz Urine Protein Urine Glucose (UA) Urine Ketones Urine Blood Urine Nitrate Urine Bilirubin Urine Urobilinogen Ur Leukocyte Esterase Urine WBC (Auto) Urine RBC (Auto) Ur Squamous Epith Cells Blood Type Antibody Screen 04/21/17 04/21/17 04/21/17 19:40 20:18 22:32 WBC RBC Hgb Hct MCV MCH MCHC RDW Plt Count MPV Differential Comment PT INR APTT pO2 VBG pH VBG pCO2 VBG HCO3 VBG Total CO2 VBG O2 Sat (Calc) VBG Base Excess VBG Potassium Sodium 128 L Chloride 95 L Glucose Lactate Potassium 3.6 Carbon Dioxide 24 Anion Gap 12 BUN 11 Creatinine 0.7 Est GFR ( Amer) > 60 Est GFR (Non-Af Amer) > 60 Random Glucose 119 H Calcium 7.7 L Total Bilirubin 0.8 AST 34 ALT 53 H D Alkaline Phosphatase 101 Total Creatine Kinase 20 L CK-MB (Mass) 0.30 Troponin I 0.0290 Total Protein 7.2 Albumin 3.5 Globulin 3.6 Albumin/Globulin Ratio 1.0 Venous Blood Potassium Urine Color Yellow Urine Clarity Hazy Urine pH 5.0 Ur Specific [place]atz 1.016 Urine Protein 1+ H Urine Glucose (UA) Normal Urine Ketones Negative Urine Blood Negative Urine Nitrate Negative Urine Bilirubin Negative Urine Urobilinogen Normal Ur Leukocyte Esterase Neg Urine WBC (Auto) 4 Urine RBC (Auto) 1 Ur Squamous Epith Cells 4 Blood Type O POSITIVE Antibody Screen Negative Assessment & Plan - Assessment and Plan (Free Text) Assessment: Acute bronchitis - r/o Pneumonia Myelodysplastic syndrome Severe anemia Plan: Septic work up Antibiotic by ID Bronchodilators Pulmonary consult Heme consult
[2017-04-22] MEDS: methIMAzole 5 MG TAB PO SCH (09:12)
[2017-04-22] MEDS: Multiple Vitamins Tab PO SCH (09:12)
[2017-04-22] MEDS ORDERED: Epoetin Alfa 3000 UNIT/ML Inj SC ONE (11:30)
--- NOTE | 2017-04-22 11:47 | CP.PCM.HP ---
History of Present Illness - History of Present Illness History of Present Illness: 76 yo female with MDS and anemia admitted with fever r/o sepsis pneumonia last here for cellulitis left leg Present on Admission - Present on Admission Any Indicators Present on Admission: No History of DVT/PE: No History of Uncontrolled Diabetes: No Urinary Catheter: No Decubitus Ulcer Present: No History Surgical Site Infection Following: None Review of Systems - Constitutional Constitutional: As Per HPI - EENT Eyes: absent: As Per HPI, Blind Spots, Blurred Vision, Change in Vision, Decreased Night Vision, Diplopia, Discharge, Dry Eye, Exophthalmos, Floaters, Irritation, Itchy Eyes, Loss of Peripheral Vision, Pain, Photophobia, Requires Corrective Lenses, Sees Flashes, Spots in Vision, Tunnel Vision, Other Visual Disturbances, Loss of Vision, Other Ears: absent: As Per HPI, Decreased Hearing, Ear Discharge, Ear Pain, Tinnitus, Abnormal Hearing, Disequilibrium, Dizziness, Other Nose/Mouth/Throat: absent: As Per HPI, Epistaxis, Nasal Congestion, Nasal Discharge, Nasal Obstruction, Nasal Trauma, Nose Pain, Post Nasal Drip, Sinus Pain, Sinus Pressure, Bleeding Gums, Change in Voice, Dental Pain, Dry Mouth, Dysphagia, Halitosis, Hoarsness, Lip Swelling, Mouth Lesions, Mouth Pain, Odynophagia, Sore Throat, Throat Swelling, Tongue Swelling, Facial Pain, Neck Pain, Neck Mass, Other - Breasts Breasts: absent: As Per HPI, Change in Shape, Mass, Pain, Nipple Discharge, Nipple Inversion, Skin Changes, Swelling, Other - Cardiovascular Cardiovascular: As Per HPI - Respiratory Respiratory: As Per HPI - Gastrointestinal Gastrointestinal: absent: As Per HPI, Abdominal Pain, Belching, Bloating, Change in Bowel Habits, Change in Stool Character, Coffee Ground Emesis, Constipation, Cramping, Diarrhea, Dyspepsia, Dysphagia, Early Satiety, Excessive Flatus, Fecal Incontinence, Heartburn, Hematemesis, Hematochezia, Loose Stools, Melena, Nausea, Odynophagia, Temesmus, Vomiting, Other - Genitourinary Genitourinary: absent: As Per HPI, Change in Urinary Stream, Difficulty Urinating, Dysuria, Flank Pain, Hematuria, Pyuria, Nocturia, Urinary Incontinence, Urinary Frequency, Urinary Hesitance, Urinary Urgency, Voiding Freq/Small Amts, Freq UTI, Hx Renal/Bladder Calculi, Hx /Renal Surgery, Bladder Distension, Other - Reproductive: Female Reproductive:Female: absent: As Per HPI, Amenorrhea, Amenorrhea/ Control, Currently Menstual, Cycle <21 Days, Cycle >35 Days, Cycle Variable, Menses 1-7 Days, Menses >/= 8 Days, Menses Variable, Cycle > 4 Weeks Between, No Menses for 6 Months, Heavy Menses, Light Menses, Normal Menses, Spotting Between Cycles , S/P Hysterectomy, Menopausal, Post Menopausal, Premenarche, Abnormal Vaginal Bleeding, Dysmenorrhea, Dyspareunia, Genital Lesions, Genital Pruritis, Pelvic Pain, Prolapse Symptoms, Sexual Dysfunction, Vaginal Discharge, Vaginal Dryness , Vaginal Odor, Vaginal Pruritis, Other - Menstruation Menstruation: absent: As Per HPI, Amenorrhea, Amenorrhea/ Control, Currently Menstual, Cycle <21 Days, Cycle >35 Days, Cycle Variable, Menses 1-7 Days, Menses >/= 8 Days, Menses Variable, Cycle > 4 Weeks Between, No Menses for 6 Months, Heavy Menses, Light Menses, Normal Menses, Spotting Between Cycles , S/P Hysterectomy, Menopausal, Post Menopausal, Premenarche, Abnormal Vaginal Bleeding, Dysmenorrhea, Other - Musculoskeletal Musculoskeletal: As Per HPI - Integumentary Integumentary: As Per HPI - Neurological Neurological: absent: As Per HPI, Abnormal Gait, Abnormal Hearing, Abnormal Movements, Abnormal Speech, Behavioral Changes, Burning Sensations, Confusion, Convulsions, Disequilibrium, Dizziness, Numbness, Focal Weakness, Frequent Falls , Headaches, Lack of Coordination, Loss of Vision, Memory Loss, Paresthesias, Radicular Pain, Restless Legs, Sensory Deficit, Syncope, Tingling, Tremor, Vertigo, Weakness, Other Visual Disturbances, Other - Psychiatric Psychiatric: absent: As Per HPI, Abnormal Sleep Pattern, Anhedonia, Anxiety, Auditory Hallucinations, Behavioral Changes, Change in Appetite, Change in Libido, Confusion, Depression, Difficulty Concentrating, Hallucinations, Homicidal Ideation, Hopelessness, Irritability, Memory Loss, Mood Swings, Panic Attacks, Paranoia, Suicidal Ideation, Visual Hallucinations, Tactile Hallucinations, Other - Endocrine Endocrine: absent: As Per HPI, Change in Body Appearance, Change in Libido, Cold Intolorance, Deepening of Voice, Excessive Sweating, Fatigue, Flushing, Heat Intolorance, Increase in Ring/Shoe/Hat Size, Palpitations, Polydipsia, Polyphagia, Polyuria, Other - Hematologic/Lymphatic Hematologic: As Per HPI Past Patient History - Infectious Disease Hx of Infectious Diseases: None - Past Medical History & Family History Past Medical History?: Yes - Past Social History Smoking Status: Former Smoker - CARDIAC Hx Cardiac Disorders: Yes Hx Hypercholesterolemia: Yes Hx Hypertension: Yes - PULMONARY Hx Respiratory Disorders: No - NEUROLOGICAL Hx Neurological Disorder: No - HEENT Hx HEENT Problems: No - RENAL Hx Chronic Kidney Disease: No - ENDOCRINE/METABOLIC Hx Endocrine Disorders: Yes Hx Hyperthyroidism: Yes Hx Hypothyroidism: Yes - HEMATOLOGICAL/ONCOLOGICAL Hx Blood Disorders: Yes Other/Comment: MDS- MYELODYSPLASTIC SYNDROME - INTEGUMENTARY Hx Dermatological Problems: No - MUSCULOSKELETAL/RHEUMATOLOGICAL Hx Musculoskeletal Disorders: Yes Hx Falls: Yes - GASTROINTESTINAL Hx Gastrointestinal Disorders: Yes Hx Gastritis: Yes - GENITOURINARY/GYNECOLOGICAL Hx Genitourinary Disorders: No - PSYCHIATRIC Hx Psychophysiologic Disorder: No Hx Substance Use: No - SURGICAL HISTORY Hx Surgeries: No - ANESTHESIA Hx Anesthesia: No Meds Allergies/Adverse Reactions: Allergies Allergy/AdvReac Type Severity Reaction Status Date / Time No Known Allergies Allergy Verified 04/21/17 18:02 Physical Exam - Constitutional Appears: Non-toxic, Cachectic, Chronically Ill - Head Exam Head Exam: ATRAUMATIC, NORMAL INSPECTION, NORMOCEPHALIC - Eye Exam Eye Exam: EOMI, PERRL. absent: Scleral icterus - ENT Exam ENT Exam: Mucous Membranes Dry, Normal External Ear Exam, Normal Oropharynx - Neck Exam Neck exam: Negative for: Lymphadenopathy - Respiratory Exam Respiratory Exam: Decreased Breath Sounds, Rales, Rhonchi - Cardiovascular Exam Cardiovascular Exam: REGULAR RHYTHM, +S1, +S2 - GI/Abdominal Exam GI & Abdominal Exam: Diminished Bowel Sounds, Soft. absent: Tenderness - Rectal Exam Rectal Exam: Deferred - Exam Exam: NORMAL INSPECTION - Extremities Exam Extremities exam: Positive for: pedal pulses present. Negative for: calf tenderness, pedal edema, tenderness - Back Exam Back exam: absent: CVA tenderness (L), CVA tenderness (R), paraspinal tenderness - Neurological Exam Neurological exam: Alert, CN II-XII Intact, Oriented x3, Reflexes Normal - Psychiatric Exam Psychiatric exam: Depressed - Skin Skin Exam: Dry, Intact Results - Vital Signs Recent Vital Signs: Last Vital Signs Temp 100.5 F H 04/22/17 10:32 Pulse 99 H 04/22/17 10:07 Resp 21 04/22/17 10:07 BP 104/62 04/22/17 10:07 Pulse Ox 100 04/22/17 07:38 - Labs Result Diagrams: 04/23/17 07:09 04/21/17 19:40 Labs: Laboratory Results - last 24 hr 04/21/17 04/21/17 04/21/17 07:35 19:40 19:40 WBC 7.5 RBC 3.28 L Hgb 8.0 L Hct 25.6 L MCV 78.0 L MCH 24.5 L MCHC 31.4 L RDW 33.1 H Plt Count 725 H D MPV 9.6 Differential Comment PT 19.5 H INR 1.7 APTT 37 H pO2 43 VBG pH 7.45 H VBG pCO2 32 L VBG HCO3 23.7 VBG Total CO2 23.2 VBG O2 Sat (Calc) 83.2 H VBG Base Excess -1.0 L VBG Potassium 3.2 L Sodium 131.0 L Chloride 101.0 Glucose 117 H Lactate 1.0 Potassium Carbon Dioxide Anion Gap BUN Creatinine Est GFR ( Amer) Est GFR (Non-Af Amer) Random Glucose Calcium Total Bilirubin AST ALT Alkaline Phosphatase Total Creatine Kinase CK-MB (Mass) Troponin I Total Protein Albumin Globulin Albumin/Globulin Ratio Venous Blood Potassium 3.2 L Urine Color Urine Clarity Urine pH Ur Specific [place] Urine Protein Urine Glucose (UA) Urine Ketones Urine Blood Urine Nitrate Urine Bilirubin Urine Urobilinogen Ur Leukocyte Esterase Urine WBC (Auto) Urine RBC (Auto) Ur Squamous Epith Cells Blood Type Antibody Screen 04/21/17 04/21/17 04/21/17 19:40 20:18 22:32 WBC RBC Hgb Hct MCV MCH MCHC RDW Plt Count MPV Differential Comment PT INR APTT pO2 VBG pH VBG pCO2 VBG HCO3 VBG Total CO2 VBG O2 Sat (Calc) VBG Base Excess VBG Potassium Sodium 128 L Chloride 95 L Glucose Lactate Potassium 3.6 Carbon Dioxide 24 Anion Gap 12 BUN 11 Creatinine 0.7 Est GFR ( Amer) > 60 Est GFR (Non-Af Amer) > 60 Random Glucose 119 H Calcium 7.7 L Total Bilirubin 0.8 AST 34 ALT 53 H D Alkaline Phosphatase 101 Total Creatine Kinase 20 L CK-MB (Mass) 0.30 Troponin I 0.0290 Total Protein 7.2 Albumin 3.5 Globulin 3.6 Albumin/Globulin Ratio 1.0 Venous Blood Potassium Urine Color Yellow Urine Clarity Hazy Urine pH 5.0 Ur Specific [place] 1.016 Urine Protein 1+ H Urine Glucose (UA) Normal Urine Ketones Negative Urine Blood Negative Urine Nitrate Negative Urine Bilirubin Negative Urine Urobilinogen Normal Ur Leukocyte Esterase Neg Urine WBC (Auto) 4 Urine RBC (Auto) 1 Ur Squamous Epith Cells 4 Blood Type O POSITIVE Antibody Screen Negative Assessment & Plan (1) Dehydration Status: Acute (2) Lower respiratory infection Status: Acute (3) Myelodysplasia (myelodysplastic syndrome) Status: Acute (4) Pneumonia Status: Acute (5) Symptomatic anemia Status: Acute Decision To Admit - Pt Status Changed To: Hospital Disposition Of: Inpatient - Admit Certification Admit to Inpatient:: After my assessment, the patient will require hospitalization for at least two midnights. This is because of the severity of symptoms shown, intensity of services needed, and/or the medical risk in this patient being treated as an outpatient. - InPatient: Physician Admission Certification:: PT IS ACUTELY ILL REQUIRING BLOOD TRANSFUSIONS, IV ANTIBIOTICS AND CONTINUOUS MONITORING - . Bed Request Type: Regular Admitting Physician: Bong Hernandez
--- NOTE | 2017-04-22 12:26 | CP.PCM.CON ---
History of Present Illness - History of Present Illness History of Present Illness: Reason for consultation : SOB and Pneumonia 76 y/o F with a PMHx of MDS, PE, anemia, and cellulitis presented with SOB, fever, and cough. Patient has a five day hx of fever, weakness, and non-bloody productive cough. Patient was hospitalized two weeks ago for cellulitis. Patient seen and examined at bedside. Patient is sitting comfortably. Patient received two units of blood and says she is feeling better but still feels congested. She denies any headaches, chills, nausea, vomiting, diarrhea, and constipation. Past Patient History - Infectious Disease Hx of Infectious Diseases: None - Past Medical History & Family History Past Medical History?: Yes - Past Social History Smoking Status: Former Smoker - CARDIAC Hx Cardiac Disorders: Yes Hx Hypercholesterolemia: Yes Hx Hypertension: Yes - PULMONARY Hx Respiratory Disorders: No - NEUROLOGICAL Hx Neurological Disorder: No - HEENT Hx HEENT Problems: No - RENAL Hx Chronic Kidney Disease: No - ENDOCRINE/METABOLIC Hx Endocrine Disorders: Yes Hx Hyperthyroidism: Yes Hx Hypothyroidism: Yes - HEMATOLOGICAL/ONCOLOGICAL Hx Blood Disorders: Yes Other/Comment: MDS- MYELODYSPLASTIC SYNDROME - INTEGUMENTARY Hx Dermatological Problems: No - MUSCULOSKELETAL/RHEUMATOLOGICAL Hx Musculoskeletal Disorders: Yes Hx Falls: Yes - GASTROINTESTINAL Hx Gastrointestinal Disorders: Yes Hx Gastritis: Yes - GENITOURINARY/GYNECOLOGICAL Hx Genitourinary Disorders: No - PSYCHIATRIC Hx Psychophysiologic Disorder: No Hx Substance Use: No - SURGICAL HISTORY Hx Surgeries: No - ANESTHESIA Hx Anesthesia: No Meds Allergies/Adverse Reactions: Allergies Allergy/AdvReac Type Severity Reaction Status Date / Time No Known Allergies Allergy Verified 04/21/17 18:02 - Medications Medications: Current Medications Acetaminophen (Tylenol 325mg Tab) 650 mg PO Q6 PRN PRN Reason: Pain, moderate (4-7) Last Admin: 04/22/17 10:32 Dose: 650 mg Amlodipine Besylate (Norvasc) 5 mg PO DAILY [facility] Last Admin: 04/22/17 10:06 Dose: 5 mg Apixaban (Eliquis) 5 mg PO BID [facility] Last Admin: 04/22/17 09:12 Dose: 5 mg Cefepime HCl 1 gm/ Dextrose 50 mls @ 100 mls/hr IVPB Q12H [facility] Last Admin: 04/22/17 11:49 Dose: 100 mls/hr Dextrose/Sodium Chloride (Dextrose 5%/0.45% Ns 1000 Ml) 1,000 mls @ 60 mls/hr IV .[id number] [facility] Last Admin: 04/22/17 09:55 Dose: 60 mls/hr Methimazole (Tapazole) 5 mg PO DAILY [facility] Last Admin: 04/22/17 09:12 Dose: 5 mg Multivitamins (Hexavitamin) 1 tab PO DAILY [facility] Last Admin: 04/22/17 09:12 Dose: 1 tab Mupirocin (Bactroban Ointment) 0 gm TOP BID [facility] Results - Vital Signs Recent Vital Signs: Last Vital Signs Temp 100.5 F H 04/22/17 10:32 Pulse 99 H 04/22/17 10:07 Resp 21 04/22/17 10:07 BP 104/62 04/22/17 10:07 Pulse Ox 100 04/22/17 07:38 - Labs Result Diagrams: 04/21/17 19:40 04/21/17 19:40 Labs: Laboratory Results - last 24 hr 04/21/17 04/21/17 04/21/17 07:35 19:40 19:40 WBC 7.5 RBC 3.28 L Hgb 8.0 L Hct 25.6 L MCV 78.0 L MCH 24.5 L MCHC 31.4 L RDW 33.1 H Plt Count 725 H D MPV 9.6 Differential Comment PT 19.5 H INR 1.7 APTT 37 H pO2 43 VBG pH 7.45 H VBG pCO2 32 L VBG HCO3 23.7 VBG Total CO2 23.2 VBG O2 Sat (Calc) 83.2 H VBG Base Excess -1.0 L VBG Potassium 3.2 L Sodium 131.0 L Chloride 101.0 Glucose 117 H Lactate 1.0 Potassium Carbon Dioxide Anion Gap BUN Creatinine Est GFR ( Amer) Est GFR (Non-Af Amer) Random Glucose Calcium Total Bilirubin AST ALT Alkaline Phosphatase Total Creatine Kinase CK-MB (Mass) Troponin I Total Protein Albumin Globulin Albumin/Globulin Ratio Venous Blood Potassium 3.2 L Urine Color Urine Clarity Urine pH Ur Specific [place] Urine Protein Urine Glucose (UA) Urine Ketones Urine Blood Urine Nitrate Urine Bilirubin Urine Urobilinogen Ur Leukocyte Esterase Urine WBC (Auto) Urine RBC (Auto) Ur Squamous Epith Cells Blood Type Antibody Screen 04/21/17 04/21/17 04/21/17 19:40 20:18 22:32 WBC RBC Hgb Hct MCV MCH MCHC RDW Plt Count MPV Differential Comment PT INR APTT pO2 VBG pH VBG pCO2 VBG HCO3 VBG Total CO2 VBG O2 Sat (Calc) VBG Base Excess VBG Potassium Sodium 128 L Chloride 95 L Glucose Lactate Potassium 3.6 Carbon Dioxide 24 Anion Gap 12 BUN 11 Creatinine 0.7 Est GFR ( Amer) > 60 Est GFR (Non-Af Amer) > 60 Random Glucose 119 H Calcium 7.7 L Total Bilirubin 0.8 AST 34 ALT 53 H D Alkaline Phosphatase 101 Total Creatine Kinase 20 L CK-MB (Mass) 0.30 Troponin I 0.0290 Total Protein 7.2 Albumin 3.5 Globulin 3.6 Albumin/Globulin Ratio 1.0 Venous Blood Potassium Urine Color Yellow Urine Clarity Hazy Urine pH 5.0 Ur Specific [place] 1.016 Urine Protein 1+ H Urine Glucose (UA) Normal Urine Ketones Negative Urine Blood Negative Urine Nitrate Negative Urine Bilirubin Negative Urine Urobilinogen Normal Ur Leukocyte Esterase Neg Urine WBC (Auto) 4 Urine RBC (Auto) 1 Ur Squamous Epith Cells 4 Blood Type O POSITIVE Antibody Screen Negative Assessment & Plan (1) Pneumonia Assessment and Plan: presentation consistent with pneumonia patient recently hospitalized consider treating ESKAPE organism Pro-calcitonin level Continue Cefepime, consider adding Azithroymycin Legionella and Mycoplasma titer Status: Acute
--- NOTE | 2017-04-22 17:04 | CP.PCM.CON ---
History of Present Illness - History of Present Illness History of Present Illness: 76 year old female seen for re-eval of cellulitis of ankle .Pt was recently inpatient for this . Review of Systems - Constitutional Constitutional: As Per HPI - EENT Eyes: As Per HPI Nose/Mouth/Throat: As Per HPI - Respiratory Respiratory: As Per HPI - Integumentary Integumentary: As Per HPI Past Patient History - Infectious Disease Hx of Infectious Diseases: None - Past Medical History & Family History Past Medical History?: Yes - Past Social History Smoking Status: Former Smoker - CARDIAC Hx Cardiac Disorders: Yes Hx Hypercholesterolemia: Yes Hx Hypertension: Yes - PULMONARY Hx Respiratory Disorders: No - NEUROLOGICAL Hx Neurological Disorder: No - HEENT Hx HEENT Problems: No - RENAL Hx Chronic Kidney Disease: No - ENDOCRINE/METABOLIC Hx Endocrine Disorders: Yes Hx Hyperthyroidism: Yes Hx Hypothyroidism: Yes - HEMATOLOGICAL/ONCOLOGICAL Hx Blood Disorders: Yes Other/Comment: MDS- MYELODYSPLASTIC SYNDROME - INTEGUMENTARY Hx Dermatological Problems: No - MUSCULOSKELETAL/RHEUMATOLOGICAL Hx Musculoskeletal Disorders: Yes Hx Falls: Yes - GASTROINTESTINAL Hx Gastrointestinal Disorders: Yes Hx Gastritis: Yes - GENITOURINARY/GYNECOLOGICAL Hx Genitourinary Disorders: No - PSYCHIATRIC Hx Psychophysiologic Disorder: No Hx Substance Use: No - SURGICAL HISTORY Hx Surgeries: No - ANESTHESIA Hx Anesthesia: No Meds Allergies/Adverse Reactions: Allergies Allergy/AdvReac Type Severity Reaction Status Date / Time No Known Allergies Allergy Verified 04/21/17 18:02 - Medications Medications: Current Medications Acetaminophen (Tylenol 325mg Tab) 650 mg PO Q6 PRN PRN Reason: Pain, moderate (4-7) Last Admin: 04/22/17 10:32 Dose: 650 mg Amlodipine Besylate (Norvasc) 5 mg PO DAILY [facility] Last Admin: 04/22/17 10:06 Dose: 5 mg Apixaban (Eliquis) 5 mg PO BID [facility] Last Admin: 04/22/17 09:12 Dose: 5 mg Cefepime HCl 1 gm/ Dextrose 50 mls @ 100 mls/hr IVPB Q12H [facility] Last Admin: 04/22/17 11:49 Dose: 100 mls/hr Dextrose/Sodium Chloride (Dextrose 5%/0.45% Ns 1000 Ml) 1,000 mls @ 60 mls/hr IV .[id number] [facility] Last Admin: 04/22/17 09:55 Dose: 60 mls/hr Methimazole (Tapazole) 5 mg PO DAILY [facility] Last Admin: 04/22/17 09:12 Dose: 5 mg Multivitamins (Hexavitamin) 1 tab PO DAILY [facility] Last Admin: 04/22/17 09:12 Dose: 1 tab Mupirocin (Bactroban Ointment) 0 gm TOP BID [facility] Physical Exam - Extremities Exam Extremities exam: Positive for: pedal pulses present Additional comments: O/Cellulitis resolving well left lateral ankle region . Integument intact . Vascular status grossly intact . No gross orthopedic abnormalities noted. neuro -sensorium grossly intact . Results - Vital Signs Recent Vital Signs: Last Vital Signs Temp 100.5 F H 04/22/17 10:32 Pulse 99 H 04/22/17 10:07 Resp 21 04/22/17 10:07 BP 104/62 04/22/17 10:07 Pulse Ox 100 04/22/17 07:38 - Labs Result Diagrams: 04/21/17 19:40 04/21/17 19:40 Labs: Laboratory Results - last 24 hr 04/21/17 04/21/17 04/21/17 07:35 19:40 19:40 WBC 7.5 RBC 3.28 L Hgb 8.0 L Hct 25.6 L MCV 78.0 L MCH 24.5 L MCHC 31.4 L RDW 33.1 H Plt Count 725 H D MPV 9.6 Differential Comment PT 19.5 H INR 1.7 APTT 37 H pO2 43 VBG pH 7.45 H VBG pCO2 32 L VBG HCO3 23.7 VBG Total CO2 23.2 VBG O2 Sat (Calc) 83.2 H VBG Base Excess -1.0 L VBG Potassium 3.2 L Sodium 131.0 L Chloride 101.0 Glucose 117 H Lactate 1.0 Potassium Carbon Dioxide Anion Gap BUN Creatinine Est GFR ( Amer) Est GFR (Non-Af Amer) Random Glucose Calcium Total Bilirubin AST ALT Alkaline Phosphatase Total Creatine Kinase CK-MB (Mass) Troponin I Total Protein Albumin Globulin Albumin/Globulin Ratio Venous Blood Potassium 3.2 L Urine Color Urine Clarity Urine pH Ur Specific [place] Urine Protein Urine Glucose (UA) Urine Ketones Urine Blood Urine Nitrate Urine Bilirubin Urine Urobilinogen Ur Leukocyte Esterase Urine WBC (Auto) Urine RBC (Auto) Ur Squamous Epith Cells Blood Type Antibody Screen 04/21/17 04/21/17 04/21/17 19:40 20:18 22:32 WBC RBC Hgb Hct MCV MCH MCHC RDW Plt Count MPV Differential Comment PT INR APTT pO2 VBG pH VBG pCO2 VBG HCO3 VBG Total CO2 VBG O2 Sat (Calc) VBG Base Excess VBG Potassium Sodium 128 L Chloride 95 L Glucose Lactate Potassium 3.6 Carbon Dioxide 24 Anion Gap 12 BUN 11 Creatinine 0.7 Est GFR ( Amer) > 60 Est GFR (Non-Af Amer) > 60 Random Glucose 119 H Calcium 7.7 L Total Bilirubin 0.8 AST 34 ALT 53 H D Alkaline Phosphatase 101 Total Creatine Kinase 20 L CK-MB (Mass) 0.30 Troponin I 0.0290 Total Protein 7.2 Albumin 3.5 Globulin 3.6 Albumin/Globulin Ratio 1.0 Venous Blood Potassium Urine Color Yellow Urine Clarity Hazy Urine pH 5.0 Ur Specific [place] 1.016 Urine Protein 1+ H Urine Glucose (UA) Normal Urine Ketones Negative Urine Blood Negative Urine Nitrate Negative Urine Bilirubin Negative Urine Urobilinogen Normal Ur Leukocyte Esterase Neg Urine WBC (Auto) 4 Urine RBC (Auto) 1 Ur Squamous Epith Cells 4 Blood Type O POSITIVE Antibody Screen Negative Assessment & Plan - Assessment and Plan (Free Text) Assessment: A/Resolving cellulitis left ankle Plan: P/ IV antibiotics /bactroban locally bid (Tube is at bedside )
--- NOTE | 2017-04-22 21:00 | CARD ---
APPROVED REPORT EKG Measurement Heart [id number] <Conclusion> Sinus tachycardia Low voltage QRS Borderline ECG
[2017-04-23] MEDS: Dextrose 5%/0.45% NS 1,000 ML IV SCH (05:57)
[2017-04-23 07:34] LABS: HEMATOCRIT 30.9 % (34.0-47.0); MEAN CORPUSCULAR HEMOGLOBIN 26.3 pg (27.0-31.0); MEAN CORPUSCULAR HGB CONC 32.7 g/dL (33.0-37.0); MEAN PLATELET VOLUME 9.5 fL (7.2-11.7); PLATELET COUNT 675 K/uL (130-400); RED CELL DISTRIBUTION WIDTH 24.8 % (11.5-14.5); WHITE BLOOD COUNT 5.8 K/uL (4.8-10.8)
[2017-04-23 08:01] LABS: MEAN CELL VOLUME 80.4 fL (81.0-99.0)
[2017-04-23] MEDS: REVLIMID 5 MG PO SCH (09:34)
[2017-04-23] MEDS: methIMAzole 5 MG TAB PO SCH (09:36)
[2017-04-23] MEDS: Multiple Vitamins Tab PO SCH (09:36)
[2017-04-23] MEDS ORDERED: REVLIMID 5 MG PO SCH (10:00)
[2017-04-23 10:16] LABS: EOS # 0.4 K/uL (0.0-0.7); MONO # 0.3 K/uL (0.0-0.8)
[2017-04-23 10:28] LABS: EOSINOPHIL 7 % (0-4); NEUTROPHIL 46 % (50-75); REACTIVE LYMPHOCYTES 4 % (0-0); TOTAL CELLS COUNTED 100
[2017-04-23 10:29] LABS: GIANT PLATELETS PRESENT; LARGE PLATELETS PRESENT
--- NOTE | 2017-04-23 11:45 | CP.PCM.PN ---
Subjective - Date & Time of Evaluation Date of Evaluation: 04/23/17 - Subjective Subjective: Patient seen and examined at bedside. Patient say she is feeling better. Pt still reports a productive cough with white phlegm. Patient slept last night and is eating. She denies fever, chills, sob, chest pain, abdominal pain, diarrhea, constipation, and dysuria. Objective - Vital Signs/Intake and Output Vital Signs (last 24 hours): Temp Pulse Resp BP Pulse Ox 98.3 F 96 H 18 112/69 100 04/23/17 08:00 04/23/17 08:00 04/23/17 08:00 04/23/17 08:00 04/23/17 08:00 Intake and Output: 04/23/17 04/23/17 06:59 18:59 Intake Total 1150 Output Total 2 Balance 1148 - Medications Medications: Current Medications Acetaminophen (Tylenol 325mg Tab) 650 mg PO Q6 PRN PRN Reason: Pain, moderate (4-7) Last Admin: 04/22/17 10:32 Dose: 650 mg Amlodipine Besylate (Norvasc) 5 mg PO DAILY [facility] Last Admin: 04/23/17 09:36 Dose: 5 mg Apixaban (Eliquis) 5 mg PO BID [facility] Last Admin: 04/23/17 09:35 Dose: 5 mg Home Med (Patient's Own Medication) 1 tab PO DAILY [facility] Last Admin: 04/23/17 09:34 Dose: 1 tab Cefepime HCl 1 gm/ Dextrose 50 mls @ 100 mls/hr IVPB Q12H [facility] Last Admin: 04/23/17 00:17 Dose: 100 mls/hr Dextrose/Sodium Chloride (Dextrose 5%/0.45% Ns 1000 Ml) 1,000 mls @ 60 mls/hr IV .[id number] [facility] Last Admin: 04/23/17 05:57 Dose: 60 mls/hr Methimazole (Tapazole) 5 mg PO DAILY [facility] Last Admin: 04/23/17 09:36 Dose: 5 mg Multivitamins (Hexavitamin) 1 tab PO DAILY [facility] Last Admin: 04/23/17 09:36 Dose: 1 tab Mupirocin (Bactroban Ointment) 0 gm TOP BID [facility] Last Admin: 04/23/17 09:39 Dose: 1 % - Labs Labs: 04/23/17 07:09 04/21/17 19:40 PT 19.5 SECONDS (9.7-12.2) H 04/21/17 19:40 INR 1.7 04/21/17 19:40 APTT 37 SECONDS (21-34) H 04/21/17 19:40 Assessment and Plan (1) Pneumonia Assessment & Plan: continue antibiotics f/u mycoplasma and Legionella titers Status: Acute
--- NOTE | 2017-04-23 17:38 | CP.PCM.PN ---
Subjective - Date & Time of Evaluation Date of Evaluation: 04/23/17 Time of Evaluation: 07:00 - Subjective Subjective: . Patient say she is feeling better. Pt still reports a productive cough with white phlegm. Objective - Vital Signs/Intake and Output Vital Signs (last 24 hours): Temp Pulse Resp BP Pulse Ox 99.8 F H 104 H 20 117/63 98 04/23/17 16:00 04/23/17 16:00 04/23/17 16:00 04/23/17 16:00 04/23/17 16:00 Intake and Output: 04/23/17 04/23/17 06:59 18:59 Intake Total 1150 1230 Output Total 2 Balance 1148 1230 - Medications Medications: Current Medications Acetaminophen (Tylenol 325mg Tab) 650 mg PO Q6 PRN PRN Reason: Pain, moderate (4-7) Last Admin: 04/22/17 10:32 Dose: 650 mg Amlodipine Besylate (Norvasc) 5 mg PO DAILY [facility] Last Admin: 04/23/17 09:36 Dose: 5 mg Apixaban (Eliquis) 5 mg PO BID [facility] Last Admin: 04/23/17 09:35 Dose: 5 mg Home Med (Patient's Own Medication) 1 tab PO DAILY [facility] Last Admin: 04/23/17 09:34 Dose: 1 tab Cefepime HCl 1 gm/ Dextrose 50 mls @ 100 mls/hr IVPB Q12H [facility] Last Admin: 04/23/17 13:23 Dose: 100 mls/hr Dextrose/Sodium Chloride (Dextrose 5%/0.45% Ns 1000 Ml) 1,000 mls @ 60 mls/hr IV .[id number] [facility] Last Admin: 04/23/17 05:57 Dose: 60 mls/hr Methimazole (Tapazole) 5 mg PO DAILY [facility] Last Admin: 04/23/17 09:36 Dose: 5 mg Multivitamins (Hexavitamin) 1 tab PO DAILY [facility] Last Admin: 04/23/17 09:36 Dose: 1 tab Mupirocin (Bactroban Ointment) 0 gm TOP BID [facility] Last Admin: 04/23/17 09:39 Dose: 1 % - Labs Labs: 04/23/17 07:09 04/21/17 19:40 PT 19.5 SECONDS (9.7-12.2) H 04/21/17 19:40 INR 1.7 04/21/17 19:40 APTT 37 SECONDS (21-34) H 04/21/17 19:40 - Constitutional Appears: Non-toxic, Cachectic, Chronically Ill - Head Exam Head Exam: ATRAUMATIC, NORMOCEPHALIC - Eye Exam Eye Exam: PERRL. absent: Scleral icterus - ENT Exam ENT Exam: Mucous Membranes Dry - Neck Exam Neck Exam: absent: Lymphadenopathy - Respiratory Exam Respiratory Exam: Decreased Breath Sounds, Clear to Ausculation Bilateral - Cardiovascular Exam Cardiovascular Exam: REGULAR RHYTHM, +S1, +S2 - GI/Abdominal Exam GI & Abdominal Exam: Distended, Soft - Rectal Exam Rectal Exam: Deferred - Exam Exam: NORMAL INSPECTION - Extremities Exam Extremities Exam: absent: Calf Tenderness, Pedal Edema - Back Exam Back Exam: absent: CVA tenderness (L), CVA tenderness (R) - Neurological Exam Neurological Exam: Alert, Awake, Oriented x3 - Psychiatric Exam Psychiatric exam: Depressed - Skin Skin Exam: Dry. absent: Intact Assessment and Plan (1) Dehydration Status: Acute (2) Lower respiratory infection Status: Acute (3) Myelodysplasia (myelodysplastic syndrome) Status: Acute (4) Pneumonia Status: Acute (5) Symptomatic anemia Status: Acute
--- NOTE | 2017-04-23 20:20 | CP.PCM.CON ---
History of Present Illness - History of Present Illness History of Present Illness: 76 yo woman with history of refractory anemia with excess blasts, admitted with cough, SOB, low grade temps on antibiotics. She has been on Procrit and PO Revlimid as an outpatient. Past Patient History - Infectious Disease Hx of Infectious Diseases: None - Past Medical History & Family History Past Medical History?: Yes - Past Social History Smoking Status: Former Smoker - CARDIAC Hx Cardiac Disorders: Yes Hx Hypercholesterolemia: Yes Hx Hypertension: Yes - PULMONARY Hx Respiratory Disorders: No - NEUROLOGICAL Hx Neurological Disorder: No - HEENT Hx HEENT Problems: No - RENAL Hx Chronic Kidney Disease: No - ENDOCRINE/METABOLIC Hx Endocrine Disorders: Yes Hx Hyperthyroidism: Yes Hx Hypothyroidism: Yes - HEMATOLOGICAL/ONCOLOGICAL Hx Blood Disorders: Yes Other/Comment: MDS- MYELODYSPLASTIC SYNDROME - INTEGUMENTARY Hx Dermatological Problems: No - MUSCULOSKELETAL/RHEUMATOLOGICAL Hx Musculoskeletal Disorders: Yes Hx Falls: Yes - GASTROINTESTINAL Hx Gastrointestinal Disorders: Yes Hx Gastritis: Yes - GENITOURINARY/GYNECOLOGICAL Hx Genitourinary Disorders: No - PSYCHIATRIC Hx Psychophysiologic Disorder: No Hx Substance Use: No - SURGICAL HISTORY Hx Surgeries: No - ANESTHESIA Hx Anesthesia: No Meds Allergies/Adverse Reactions: Allergies Allergy/AdvReac Type Severity Reaction Status Date / Time No Known Allergies Allergy Verified 04/21/17 18:02 - Medications Medications: Current Medications Acetaminophen (Tylenol 325mg Tab) 650 mg PO Q6 PRN PRN Reason: Pain, moderate (4-7) Last Admin: 04/22/17 10:32 Dose: 650 mg Amlodipine Besylate (Norvasc) 5 mg PO DAILY [facility] Last Admin: 04/23/17 09:36 Dose: 5 mg Apixaban (Eliquis) 5 mg PO BID [facility] Last Admin: 04/23/17 18:08 Dose: 5 mg Home Med (Patient's Own Medication) 1 tab PO DAILY [facility] Last Admin: 04/23/17 09:34 Dose: 1 tab Cefepime HCl 1 gm/ Dextrose 50 mls @ 100 mls/hr IVPB Q12H [facility] Last Admin: 04/23/17 13:23 Dose: 100 mls/hr Dextrose/Sodium Chloride (Dextrose 5%/0.45% Ns 1000 Ml) 1,000 mls @ 60 mls/hr IV .[id number] [facility] Last Admin: 04/23/17 05:57 Dose: 60 mls/hr Methimazole (Tapazole) 5 mg PO DAILY [facility] Last Admin: 04/23/17 09:36 Dose: 5 mg Multivitamins (Hexavitamin) 1 tab PO DAILY [facility] Last Admin: 04/23/17 09:36 Dose: 1 tab Mupirocin (Bactroban Ointment) 0 gm TOP BID [facility] Last Admin: 04/23/17 09:39 Dose: 1 % Results - Vital Signs Recent Vital Signs: Last Vital Signs Temp 99.8 F H 04/23/17 16:00 Pulse 104 H 04/23/17 16:00 Resp 20 04/23/17 16:00 BP 117/63 04/23/17 16:00 Pulse Ox 98 04/23/17 16:00 - Labs Result Diagrams: 04/23/17 07:09 04/21/17 19:40 Labs: Laboratory Results - last 24 hr 04/22/17 04/23/17 19:30 07:09 WBC 5.8 RBC 3.85 Hgb 10.1 L D Hct 30.9 L MCV 80.4 L D MCH 26.3 L MCHC 32.7 L RDW 24.8 H Plt Count 675 H MPV 9.5 Neut % (Auto) 53.0 Lymph % (Auto) 35.0 [place] % (Auto) 5.0 Eos % (Auto) 6.0 H Baso % (Auto) 1.0 Neut # 3.0 Lymph # 2.0 [place] # 0.3 Eos # 0.4 Baso # 0.0 Neutrophils % (Manual) 46 L Band Neutrophils % 16 H* Lymphocytes % (Manual) 20 Reactive Lymphs % 4 H Monocytes % (Manual) 7 Eosinophils % (Manual) 7 H Platelet Estimate Increased H Large Platelets Present Giant Platelets Present Hypochromasia (manual) Slight Poikilocytosis (manual Moderate Anisocytosis (manual) Moderate Target Cells Slight Ovalocytes Slight Eli Cells Slight Schistocytes Slight Procalcitonin 0.17 L Assessment & Plan (1) Myelodysplasia (myelodysplastic syndrome) Assessment and Plan: 76 yo woman with MDS, 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 S/P PRBC transfusion Will order a CAT scan of the lung, as the patient still remains SOB. Otherwise continue PO Revlimid for now Status: Acute
[2017-04-24] MEDS: Dextrose 5%/0.45% NS 1,000 ML IV SCH ×2 (00:11→19:30)
--- NOTE | 2017-04-24 06:06 | CP.PCM.PN ---
Subjective - Date & Time of Evaluation Date of Evaluation: 04/23/17 Time of Evaluation: 08:10 - Subjective Subjective: feeling much better less cough less sob no fever Objective - Vital Signs/Intake and Output Vital Signs (last 24 hours): Temp Pulse Resp BP Pulse Ox 98.7 F 92 H 20 105/64 98 04/23/17 23:46 04/23/17 23:46 04/23/17 23:46 04/23/17 23:46 04/23/17 23:46 Intake and Output: 04/23/17 04/24/17 18:59 06:59 Intake Total 1230 780 Output Total 500 Balance 1230 280 - Medications Medications: Current Medications Acetaminophen (Tylenol 325mg Tab) 650 mg PO Q6 PRN PRN Reason: Pain, moderate (4-7) Last Admin: 04/22/17 10:32 Dose: 650 mg Amlodipine Besylate (Norvasc) 5 mg PO DAILY [facility] Last Admin: 04/23/17 09:36 Dose: 5 mg Apixaban (Eliquis) 5 mg PO BID [facility] Last Admin: 04/23/17 18:08 Dose: 5 mg Calcium Carbonate (Oscal) 500 mg PO DAILY [facility] Home Med (Patient's Own Medication) 1 tab PO DAILY [facility] Last Admin: 04/23/17 09:34 Dose: 1 tab Cefepime HCl 1 gm/ Dextrose 50 mls @ 100 mls/hr IVPB Q12H [facility] Last Admin: 04/24/17 00:09 Dose: 100 mls/hr Dextrose/Sodium Chloride (Dextrose 5%/0.45% Ns 1000 Ml) 1,000 mls @ 60 mls/hr IV .[id number] [facility] Last Admin: 04/24/17 00:11 Dose: 60 mls/hr Methimazole (Tapazole) 5 mg PO DAILY [facility] Last Admin: 04/23/17 09:36 Dose: 5 mg Multivitamins (Hexavitamin) 1 tab PO DAILY [facility] Last Admin: 04/23/17 09:36 Dose: 1 tab Mupirocin (Bactroban Ointment) 0 gm TOP BID [facility] Last Admin: 04/23/17 18:00 Dose: Not Given - Labs Labs: 04/23/17 07:09 04/21/17 19:40 PT 19.5 SECONDS (9.7-12.2) H 04/21/17 19:40 INR 1.7 04/21/17 19:40 APTT 37 SECONDS (21-34) H 04/21/17 19:40 - Constitutional Appears: Non-toxic - Head Exam Head Exam: NORMAL INSPECTION - Eye Exam Eye Exam: absent: Scleral icterus - ENT Exam ENT Exam: Mucous Membranes Moist - Neck Exam Neck Exam: Full ROM - Respiratory Exam Respiratory Exam: Decreased Breath Sounds - Cardiovascular Exam Cardiovascular Exam: REGULAR RHYTHM - GI/Abdominal Exam GI & Abdominal Exam: Soft - Extremities Exam Extremities Exam: absent: Pedal Edema Additional comments: previous cellulitis looks better Assessment and Plan - Assessment and Plan (Free Text) Assessment: Pneumonia Myelodysplastic anemia with refractory anemia Plan: Cont antibiotic O2 via nasal cannula heme/pulmonary follow up Case discussed extensively with daughter.
[2017-04-24] MEDS: Multiple Vitamins Tab PO SCH (09:26)
[2017-04-24] MEDS: REVLIMID 5 MG PO SCH (09:27)
[2017-04-24] MEDS: methIMAzole 5 MG TAB PO SCH (09:28)
[2017-04-24 09:59] LABS: HEMATOCRIT 28.2 % (34.0-47.0); MEAN CELL VOLUME 80.5 fL (81.0-99.0); MEAN CORPUSCULAR HEMOGLOBIN 26.1 pg (27.0-31.0); MEAN CORPUSCULAR HGB CONC 32.4 g/dL (33.0-37.0); MEAN PLATELET VOLUME 9.3 fL (7.2-11.7); RED CELL DISTRIBUTION WIDTH 23.6 % (11.5-14.5); WHITE BLOOD COUNT 5.4 K/uL (4.8-10.8)
[2017-04-24 10:05] LABS: PLATELET COUNT 521 K/uL (130-400)
[2017-04-24 12:03] LABS: BASO # 0.1 K/uL (0.0-0.2); EOS # 0.5 K/uL (0.0-0.7); ERYTHROCYTE SEDIMENTATION RATE 30 mm/hr (0-20); LYMPH # 1.2 K/uL (1.0-4.3); MONO # 0.4 K/uL (0.0-0.8)
[2017-04-24 12:10] LABS: BASOPHIL 1 % (0-2); EOSINOPHIL 12 % (0-4); MYELOCYTE 2 % (0-0); NEUTROPHIL 37 % (50-75); NUCLEATED RED BLOOD CELL 1 % (0-0); REACTIVE LYMPHOCYTES 1 % (0-0); TOTAL CELLS COUNTED 100
[2017-04-24 12:11] LABS: LARGE PLATELETS PRESENT
--- NOTE | 2017-04-24 13:46 | CP.PCM.PN ---
Subjective - Date & Time of Evaluation Date of Evaluation: 04/24/17 Time of Evaluation: 08:40 - Subjective Subjective: patient seen and examined Sitting comfortably in no acute distress Cough and breathing much improved Seen by hematology oncology Objective - Vital Signs/Intake and Output Vital Signs (last 24 hours): Temp Pulse Resp BP Pulse Ox 98.2 F 83 20 101/60 95 04/24/17 08:13 04/24/17 08:13 04/24/17 08:13 04/24/17 08:13 04/24/17 08:13 Intake and Output: 04/24/17 04/24/17 06:59 18:59 Intake Total 780 Output Total 500 Balance 280 - Medications Medications: Current Medications Acetaminophen (Tylenol 325mg Tab) 650 mg PO Q6 PRN PRN Reason: Pain, moderate (4-7) Last Admin: 04/22/17 10:32 Dose: 650 mg Amlodipine Besylate (Norvasc) 5 mg PO DAILY [facility] Last Admin: 04/24/17 09:27 Dose: 5 mg Apixaban (Eliquis) 5 mg PO BID [facility] Last Admin: 04/24/17 09:26 Dose: 5 mg Calcium Carbonate (Oscal) 500 mg PO DAILY [facility] Last Admin: 04/24/17 09:27 Dose: 500 mg Home Med (Patient's Own Medication) 1 tab PO DAILY [facility] Last Admin: 04/24/17 09:27 Dose: 1 tab Cefepime HCl 1 gm/ Dextrose 50 mls @ 100 mls/hr IVPB Q12H [facility] Last Admin: 04/24/17 12:33 Dose: 100 mls/hr Dextrose/Sodium Chloride (Dextrose 5%/0.45% Ns 1000 Ml) 1,000 mls @ 60 mls/hr IV .[id number] [facility] Last Admin: 04/24/17 00:11 Dose: 60 mls/hr Methimazole (Tapazole) 5 mg PO DAILY [facility] Last Admin: 04/24/17 09:28 Dose: 5 mg Multivitamins (Hexavitamin) 1 tab PO DAILY [facility] Last Admin: 04/24/17 09:26 Dose: 1 tab Mupirocin (Bactroban Ointment) 0 gm TOP BID [facility] Last Admin: 04/24/17 09:29 Dose: 2 % - Labs Labs: 04/24/17 07:29 04/21/17 19:40 PT 19.5 SECONDS (9.7-12.2) H 04/21/17 19:40 INR 1.7 04/21/17 19:40 APTT 37 SECONDS (21-34) H 04/21/17 19:40 - Head Exam Head Exam: ATRAUMATIC, NORMOCEPHALIC Assessment and Plan (1) Pneumonia Status: Acute
[2017-04-24 14:13] LABS: BLOOD UREA NITROGEN 5 mg/dL (7-17); CALCIUM 7.8 mg/dl (8.6-10.4); CARBON DIOXIDE 34 mmol/L (22-30); CHLORIDE 95 mmol/L (98-107); GFR AFRICAN-AMERICAN > 60; GLUCOSE,RANDOM 127 mg/dL (65-105); POTASSIUM 3.4 mmol/L (3.6-5.2); SODIUM 130 mmol/L (132-148)
[2017-04-24] MEDS ORDERED: Iodixanol 320 MG/ML 100 ML BOTTLE IV ONE (14:24)
[2017-04-24] MEDS ORDERED: Potassium Chloride 20 mEq ER Tab PO ONE (15:47)
--- NOTE | 2017-04-24 16:53 | CT ---
PROCEDURE: CT Chest with contrast HISTORY: SOB, cough, fever, pnemonia, h/o PE COMPARISON: 02/06/2017 and 11/07/2014 TECHNIQUE: Contiguous axial images were obtained through the chest with intravenous contrast enhancement. Sagittal and coronal reconstructions were performed. IV contrast: 100 mL Visipaque 3 to Radiation dose (DLP): 288 mGy-cm. This CT exam was performed using one or more of the following dose reduction techniques: Automated exposure control, adjustment of the mA and/or kV according to patient size, and/or use of iterative reconstruction technique. FINDINGS: LUNGS: Clear lungs. Visualized airway clear. Previously referenced few pulmonary nodules up to 3 mm in size were noted prior report without image 4 series reference to them . Hence evaluation for stability is impeded. Nevertheless no worrisome pulmonary nodules noted. Post inflammatory like right middle lobe nodular pleural-based the changes noted Central airways clear MEDIASTINUM: Unremarkable thoracic aorta. The ascending aorta is borderline prominent 3.9 cm-main pulmonary artery level No aneurysm or dissection. Normal sized heart. Main pulmonary artery unremarkable. No vascular congestion. No lymphadenopathy. . Patient's prior small segmental and subsegmental pulmonary emboli prior PE angio study are less clearly depicted on this exam. Some residual chronic small filling defects consistent with this likely still present. No central saddle pulmonary emboli are suggested PLEURA: No pleural fluid. No pneumothorax. BONES: No fracture. No destructive lesion. UPPER ABDOMEN: A few benign right hepatic cysts are seen similar with 2015 study. -there is 1 vague L determinate area in the posterior segment of the right hepatic lobe axial series 4 image 105 estimated to be less than 1 cm in size this is difficult to discern on the prior studies. Its significance and stability is therefore indeterminate. OTHER FINDINGS: None. IMPRESSION: Prior segmental and subsegmental small filling defects consistent with pulmonary emboli on earlier studies noted. These are currently less conspicuous. The ascending aorta is borderline prominent 3.9 cm currently just under aneurysm size. No dissection noted. No consolidation to suggest a infiltrate on this exam. Prior reference to small 3 mm pulmonary nodules without image reference cysts for comparison purposes provided. Worrisome appearing pulmonary nodules appreciated One right hepatic lobe lesion is not clearly identified as such on the prior study this is the most ill-defined lesion as well its significance and stability is indeterminate. Consider MRI of the liver without with contrast.
--- NOTE | 2017-04-24 18:33 | CP.PCM.PN ---
Subjective - Date & Time of Evaluation Date of Evaluation: 04/24/17 Time of Evaluation: 10:00 - Subjective Subjective: slow progress iv rx in progress Objective - Vital Signs/Intake and Output Vital Signs (last 24 hours): Temp Pulse Resp BP Pulse Ox 98.9 F 99 H 20 123/65 96 04/24/17 16:00 04/24/17 16:00 04/24/17 16:00 04/24/17 16:00 04/24/17 16:00 Intake and Output: 04/24/17 04/24/17 06:59 18:59 Intake Total 780 1030 Output Total 500 Balance 280 1030 - Medications Medications: Current Medications Acetaminophen (Tylenol 325mg Tab) 650 mg PO Q6 PRN PRN Reason: Pain, moderate (4-7) Last Admin: 04/22/17 10:32 Dose: 650 mg Amlodipine Besylate (Norvasc) 5 mg PO DAILY [facility] Last Admin: 04/24/17 09:27 Dose: 5 mg Apixaban (Eliquis) 5 mg PO BID [facility] Last Admin: 04/24/17 18:04 Dose: 5 mg Calcium Carbonate (Oscal) 500 mg PO DAILY [facility] Last Admin: 04/24/17 09:27 Dose: 500 mg Home Med (Patient's Own Medication) 1 tab PO DAILY [facility] Last Admin: 04/24/17 09:27 Dose: 1 tab Cefepime HCl 1 gm/ Dextrose 50 mls @ 100 mls/hr IVPB Q12H [facility] Last Admin: 04/24/17 12:33 Dose: 100 mls/hr Dextrose/Sodium Chloride (Dextrose 5%/0.45% Ns 1000 Ml) 1,000 mls @ 60 mls/hr IV .[id number] [facility] Last Admin: 04/24/17 00:11 Dose: 60 mls/hr Methimazole (Tapazole) 5 mg PO DAILY [facility] Last Admin: 04/24/17 09:28 Dose: 5 mg Multivitamins (Hexavitamin) 1 tab PO DAILY [facility] Last Admin: 04/24/17 09:26 Dose: 1 tab Mupirocin (Bactroban Ointment) 0 gm TOP BID [facility] Last Admin: 04/24/17 18:03 Dose: 1 % - Labs Labs: 04/24/17 07:29 04/24/17 13:33 PT 19.5 SECONDS (9.7-12.2) H 04/21/17 19:40 INR 1.7 04/21/17 19:40 APTT 37 SECONDS (21-34) H 04/21/17 19:40 - Constitutional Appears: Non-toxic, Chronically Ill - Head Exam Head Exam: NORMOCEPHALIC - Eye Exam Eye Exam: PERRL - ENT Exam ENT Exam: Mucous Membranes Dry - Neck Exam Neck Exam: absent: Lymphadenopathy - Respiratory Exam Respiratory Exam: Decreased Breath Sounds, Clear to Ausculation Bilateral - Cardiovascular Exam Cardiovascular Exam: REGULAR RHYTHM - GI/Abdominal Exam GI & Abdominal Exam: Distended, Soft - Rectal Exam Rectal Exam: Deferred - Exam Exam: NORMAL INSPECTION Assessment and Plan (1) Dehydration Status: Acute (2) Lower respiratory infection Status: Acute (3) Myelodysplasia (myelodysplastic syndrome) Status: Acute (4) Pneumonia Status: Acute (5) Symptomatic anemia Status: Acute
[2017-04-25] MEDS: Dextrose 5%/0.45% NS 1,000 ML IV SCH (07:11)
[2017-04-25 08:01] LABS: BASO # 0.1 K/uL (0.0-0.2); BASO % 1.2 % (0.0-2.0); EOS # 0.1 K/uL (0.0-0.7); EOS % 1.1 % (0.0-4.0); HEMATOCRIT 28.5 % (34.0-47.0); LYMPH # 2.4 K/uL (1.0-4.3); LYMPH % 42.4 % (20.0-40.0); MEAN CELL VOLUME 80.2 fL (81.0-99.0); MEAN CORPUSCULAR HEMOGLOBIN 26.1 pg (27.0-31.0); MEAN CORPUSCULAR HGB CONC 32.5 g/dL (33.0-37.0); MEAN PLATELET VOLUME 9.5 fL (7.2-11.7); MONO # 0.1 K/uL (0.0-0.8); MONO % 1.6 % (0.0-10.0); NRBC % 0.5 % (0.0-2.0); PLATELET COUNT 551 K/uL (130-400); RED CELL DISTRIBUTION WIDTH 25.9 % (11.5-14.5); WHITE BLOOD COUNT 5.6 K/uL (4.8-10.8)
[2017-04-25 08:21] LABS: ALB/GLOB RATIO 0.9 (1.0-2.1); ALKALINE PHOSPHATASE 78 U/L (38-126); ALT/SGPT 45 U/L (9-52); AST/SGOT 29 U/L (14-36); BILIRUBIN,TOTAL 0.8 mg/dL (0.2-1.3); BLOOD UREA NITROGEN 3 mg/dL (7-17); CALCIUM 7.8 mg/dl (8.6-10.4); CARBON DIOXIDE 29 mmol/L (22-30); CHLORIDE 97 mmol/L (98-107); GFR AFRICAN-AMERICAN > 60; GLUCOSE,RANDOM 101 mg/dL (65-105); POTASSIUM 3.9 mmol/L (3.6-5.2); SODIUM 131 mmol/L (132-148); TOTAL PROTEIN 6.3 g/dL (6.3-8.3)
[2017-04-25] MEDS ORDERED: Epoetin Alfa Dialysis 2000 U/ML Inj SC ONE (09:00)
[2017-04-25] MEDS: methIMAzole 5 MG TAB PO SCH (09:54)
[2017-04-25] MEDS: Multiple Vitamins Tab PO SCH (09:54)
[2017-04-25] MEDS: REVLIMID 5 MG PO SCH (10:01)
--- NOTE | 2017-04-25 10:05 | CP.PCM.PN ---
Subjective - Date & Time of Evaluation Date of Evaluation: 04/25/17 Time of Evaluation: 08:00 - Subjective Subjective: The patient seen and examined Clinically improving Still complaining of productive cough Elevated bands noted afebrile Objective - Vital Signs/Intake and Output Vital Signs (last 24 hours): Temp Pulse Resp BP Pulse Ox 98.5 F 86 20 118/71 98 04/25/17 07:32 04/25/17 07:32 04/25/17 07:32 04/25/17 07:32 04/25/17 07:32 Intake and Output: 04/25/17 04/25/17 06:59 18:59 Intake Total 740 Balance 740 - Medications Medications: Current Medications Acetaminophen (Tylenol 325mg Tab) 650 mg PO Q6 PRN PRN Reason: Pain, moderate (4-7) Last Admin: 04/22/17 10:32 Dose: 650 mg Amlodipine Besylate (Norvasc) 5 mg PO DAILY [facility] Last Admin: 04/25/17 09:54 Dose: 5 mg Apixaban (Eliquis) 5 mg PO BID [facility] Last Admin: 04/25/17 09:54 Dose: 5 mg Calcium Carbonate (Oscal) 500 mg PO DAILY [facility] Last Admin: 04/25/17 09:54 Dose: 500 mg Home Med (Patient's Own Medication) 1 tab PO DAILY [facility] Last Admin: 04/24/17 09:27 Dose: 1 tab Cefepime HCl 1 gm/ Dextrose 50 mls @ 100 mls/hr IVPB Q12H [facility] Last Admin: 04/25/17 00:01 Dose: 100 mls/hr Dextrose/Sodium Chloride (Dextrose 5%/0.45% Ns 1000 Ml) 1,000 mls @ 60 mls/hr IV .[id number] [facility] Last Admin: 04/25/17 07:11 Dose: Not Given Methimazole (Tapazole) 5 mg PO DAILY [facility] Last Admin: 04/25/17 09:54 Dose: 5 mg Multivitamins (Hexavitamin) 1 tab PO DAILY [facility] Last Admin: 04/25/17 09:54 Dose: 1 tab Mupirocin (Bactroban Ointment) 0 gm TOP BID [facility] Last Admin: 04/24/17 18:03 Dose: 1 % - Labs Labs: 04/25/17 07:44 04/25/17 07:44 PT 19.5 SECONDS (9.7-12.2) H 04/21/17 19:40 INR 1.7 04/21/17 19:40 APTT 37 SECONDS (21-34) H 04/21/17 19:40 - Head Exam Head Exam: ATRAUMATIC, NORMOCEPHALIC - Eye Exam Eye Exam: Normal appearance - Neck Exam Neck Exam: Normal Inspection - Respiratory Exam Respiratory Exam: Rales - Cardiovascular Exam Cardiovascular Exam: REGULAR RHYTHM - GI/Abdominal Exam GI & Abdominal Exam: Soft, Normal Bowel Sounds - Neurological Exam Neurological Exam: Alert Assessment and Plan (1) Pneumonia Assessment & Plan: normal pro calcitonin level with bandemia? On antibiotics per ID Clinically much better Status: Acute
[2017-04-25 10:19] LABS: EOSINOPHIL 10 % (0-4); NEUTROPHIL 32 % (50-75); REACTIVE LYMPHOCYTES 3 % (0-0); TOTAL CELLS COUNTED 100
[2017-04-25 10:21] LABS: GIANT PLATELETS PRESENT; LARGE PLATELETS PRESENT
--- NOTE | 2017-04-25 16:49 | CP.PCM.PN ---
Subjective - Date & Time of Evaluation Date of Evaluation: 04/25/17 Time of Evaluation: 09:00 - Subjective Subjective: still coughing no fever elevated bands HgB stable Objective - Vital Signs/Intake and Output Vital Signs (last 24 hours): Temp Pulse Resp BP Pulse Ox 98.3 F 93 H 20 120/68 99 04/25/17 15:00 04/25/17 15:00 04/25/17 15:00 04/25/17 15:00 04/25/17 15:00 Intake and Output: 04/25/17 04/25/17 06:59 18:59 Intake Total 740 830 Output Total 500 Balance 740 330 - Medications Medications: Current Medications Acetaminophen (Tylenol 325mg Tab) 650 mg PO Q6 PRN PRN Reason: Pain, moderate (4-7) Last Admin: 04/22/17 10:32 Dose: 650 mg Amlodipine Besylate (Norvasc) 5 mg PO DAILY [facility] Last Admin: 04/25/17 09:54 Dose: 5 mg Apixaban (Eliquis) 5 mg PO BID [facility] Last Admin: 04/25/17 09:54 Dose: 5 mg Calcium Carbonate (Oscal) 500 mg PO DAILY [facility] Last Admin: 04/25/17 09:54 Dose: 500 mg Home Med (Patient's Own Medication) 1 tab PO DAILY [facility] Last Admin: 04/25/17 10:01 Dose: 1 tab Cefepime HCl 1 gm/ Dextrose 50 mls @ 100 mls/hr IVPB Q12H [facility] Last Admin: 04/25/17 11:33 Dose: 100 mls/hr Dextrose/Sodium Chloride (Dextrose 5%/0.45% Ns 1000 Ml) 1,000 mls @ 60 mls/hr IV .[id number] [facility] Last Admin: 04/25/17 07:11 Dose: Not Given Methimazole (Tapazole) 5 mg PO DAILY [facility] Last Admin: 04/25/17 09:54 Dose: 5 mg Multivitamins (Hexavitamin) 1 tab PO DAILY [facility] Last Admin: 04/25/17 09:54 Dose: 1 tab Mupirocin (Bactroban Ointment) 0 gm TOP BID [facility] Last Admin: 04/25/17 10:45 Dose: 2 % - Labs Labs: 04/25/17 07:44 04/25/17 07:44 PT 19.5 SECONDS (9.7-12.2) H 04/21/17 19:40 INR 1.7 04/21/17 19:40 APTT 37 SECONDS (21-34) H 04/21/17 19:40 - Constitutional Appears: Non-toxic, Chronically Ill - Head Exam Head Exam: NORMOCEPHALIC - Eye Exam Eye Exam: PERRL - ENT Exam ENT Exam: Mucous Membranes Dry - Neck Exam Neck Exam: absent: Lymphadenopathy - Respiratory Exam Respiratory Exam: Decreased Breath Sounds - Cardiovascular Exam Cardiovascular Exam: REGULAR RHYTHM - GI/Abdominal Exam GI & Abdominal Exam: Distended Assessment and Plan (1) Dehydration Status: Acute (2) Lower respiratory infection Status: Acute (3) Myelodysplasia (myelodysplastic syndrome) Status: Acute (4) Pneumonia Status: Acute (5) Symptomatic anemia Status: Acute
[2017-04-26] MEDS: Dextrose 5%/0.45% NS 1,000 ML IV SCH ×2 (00:06→20:55)
[2017-04-26] MEDS: Multiple Vitamins Tab PO SCH (09:56)
[2017-04-26] MEDS: methIMAzole 5 MG TAB PO SCH (09:56)
[2017-04-26] MEDS: REVLIMID 5 MG PO SCH (10:00)
--- NOTE | 2017-04-26 12:11 | CP.PCM.PN ---
Subjective - Date & Time of Evaluation Date of Evaluation: 04/26/17 Time of Evaluation: 08:00 - Subjective Subjective: patient seen and examined Lying comfortably in no acute distress Still complaining of cough though much better Afebrile No chest pain On antibiotics as per ID Objective - Vital Signs/Intake and Output Vital Signs (last 24 hours): Temp Pulse Resp BP Pulse Ox 98.9 F 96 H 20 115/70 95 04/26/17 07:40 04/26/17 07:40 04/26/17 07:40 04/26/17 07:40 04/26/17 07:40 Intake and Output: 04/26/17 04/26/17 06:59 18:59 Intake Total 480 Balance 480 - Medications Medications: Current Medications Acetaminophen (Tylenol 325mg Tab) 650 mg PO Q6 PRN PRN Reason: Pain, moderate (4-7) Last Admin: 04/22/17 10:32 Dose: 650 mg Amlodipine Besylate (Norvasc) 5 mg PO DAILY [facility] Last Admin: 04/26/17 09:56 Dose: 5 mg Apixaban (Eliquis) 5 mg PO BID [facility] Last Admin: 04/26/17 09:56 Dose: 5 mg Calcium Carbonate (Oscal) 500 mg PO DAILY [facility] Last Admin: 04/26/17 09:56 Dose: 500 mg Home Med (Patient's Own Medication) 1 tab PO DAILY [facility] Last Admin: 04/26/17 10:00 Dose: 1 tab Cefepime HCl 1 gm/ Dextrose 50 mls @ 100 mls/hr IVPB Q12H [facility] Last Admin: 04/26/17 00:04 Dose: 100 mls/hr Dextrose/Sodium Chloride (Dextrose 5%/0.45% Ns 1000 Ml) 1,000 mls @ 60 mls/hr IV .[id number] [facility] Last Admin: 04/26/17 00:06 Dose: 60 mls/hr Methimazole (Tapazole) 5 mg PO DAILY [facility] Last Admin: 04/26/17 09:56 Dose: 5 mg Multivitamins (Hexavitamin) 1 tab PO DAILY [facility] Last Admin: 04/26/17 09:56 Dose: 1 tab Mupirocin (Bactroban Ointment) 0 gm TOP BID [facility] Last Admin: 04/26/17 09:58 Dose: Not Given - Labs Labs: 04/25/17 07:44 04/25/17 07:44 PT 19.5 SECONDS (9.7-12.2) H 04/21/17 19:40 INR 1.7 04/21/17 19:40 APTT 37 SECONDS (21-34) H 04/21/17 19:40 Assessment and Plan (1) Pneumonia Status: Acute
[2017-04-26] MEDS: Hydrocortisone 2.5% Oint (20 gm) TOP PRN (20:55)
--- NOTE | 2017-04-27 09:52 | CP.PCM.PN ---
Subjective - Date & Time of Evaluation Date of Evaluation: 04/24/17 Time of Evaluation: 08:10 - Subjective Subjective: slow progress mild cough CT of chest - +hepatic lobe lesion +pulmonary nodule Objective - Vital Signs/Intake and Output Vital Signs (last 24 hours): Temp Pulse Resp BP Pulse Ox 98.6 F 91 H 20 101/68 95 04/27/17 08:01 04/27/17 08:01 04/27/17 08:01 04/27/17 08:01 04/27/17 08:01 Intake and Output: 04/27/17 04/27/17 06:59 18:59 Intake Total 1460 Output Total 500 Balance 960 - Medications Medications: Current Medications Acetaminophen (Tylenol 325mg Tab) 650 mg PO Q6 PRN PRN Reason: Pain, moderate (4-7) Last Admin: 04/22/17 10:32 Dose: 650 mg Amlodipine Besylate (Norvasc) 5 mg PO DAILY [facility] Last Admin: 04/26/17 09:56 Dose: 5 mg Apixaban (Eliquis) 5 mg PO BID [facility] Last Admin: 04/26/17 17:28 Dose: 5 mg Calcium Carbonate (Oscal) 500 mg PO DAILY [facility] Last Admin: 04/26/17 09:56 Dose: 500 mg Home Med (Patient's Own Medication) 1 tab PO DAILY [facility] Last Admin: 04/26/17 10:00 Dose: 1 tab Hydrocortisone (Cortizone 2.5%) 1 gm TOP BID PRN PRN Reason: for itchiness Last Admin: 04/26/17 20:55 Dose: 1 gm Dextrose/Sodium Chloride (Dextrose 5%/0.45% Ns 1000 Ml) 1,000 mls @ 60 mls/hr IV .[id number] [facility] Last Admin: 04/26/17 20:55 Dose: 60 mls/hr Methimazole (Tapazole) 5 mg PO DAILY [facility] Last Admin: 04/26/17 09:56 Dose: 5 mg Multivitamins (Hexavitamin) 1 tab PO DAILY [facility] Last Admin: 04/26/17 09:56 Dose: 1 tab Mupirocin (Bactroban Ointment) 0 gm TOP BID [facility] Last Admin: 04/26/17 17:26 Dose: Not Given - Labs Labs: 04/25/17 07:44 04/25/17 07:44 PT 19.5 SECONDS (9.7-12.2) H 04/21/17 19:40 INR 1.7 04/21/17 19:40 APTT 37 SECONDS (21-34) H 04/21/17 19:40 - Constitutional Appears: Non-toxic - Head Exam Head Exam: NORMAL INSPECTION - Eye Exam Eye Exam: absent: Scleral icterus - Neck Exam Neck Exam: Full ROM - Respiratory Exam Respiratory Exam: NORMAL BREATHING PATTERN - Cardiovascular Exam Cardiovascular Exam: REGULAR RHYTHM - GI/Abdominal Exam GI & Abdominal Exam: Soft - Extremities Exam Extremities Exam: Pedal Edema Assessment and Plan - Assessment and Plan (Free Text) Assessment: Pneumonia Pulmonary nodules Hepatic lesion Myelodysplastic disorder Hx of PE Plan: Cont abtx We will call GI eval re: hepatic lesion
--- NOTE | 2017-04-27 10:00 | CP.PCM.PN ---
Subjective - Date & Time of Evaluation Date of Evaluation: 04/25/17 Time of Evaluation: 10:25 - Subjective Subjective: NAD Still coughing mild sob Objective - Vital Signs/Intake and Output Vital Signs (last 24 hours): Temp Pulse Resp BP Pulse Ox 98.6 F 91 H 20 101/68 95 04/27/17 08:01 04/27/17 08:01 04/27/17 08:01 04/27/17 08:01 04/27/17 08:01 Intake and Output: 04/27/17 04/27/17 06:59 18:59 Intake Total 1460 Output Total 500 Balance 960 - Medications Medications: Current Medications Acetaminophen (Tylenol 325mg Tab) 650 mg PO Q6 PRN PRN Reason: Pain, moderate (4-7) Last Admin: 04/22/17 10:32 Dose: 650 mg Amlodipine Besylate (Norvasc) 5 mg PO DAILY [facility] Last Admin: 04/26/17 09:56 Dose: 5 mg Apixaban (Eliquis) 5 mg PO BID [facility] Last Admin: 04/26/17 17:28 Dose: 5 mg Calcium Carbonate (Oscal) 500 mg PO DAILY [facility] Last Admin: 04/26/17 09:56 Dose: 500 mg Home Med (Patient's Own Medication) 1 tab PO DAILY [facility] Last Admin: 04/26/17 10:00 Dose: 1 tab Hydrocortisone (Cortizone 2.5%) 1 gm TOP BID PRN PRN Reason: for itchiness Last Admin: 04/26/17 20:55 Dose: 1 gm Dextrose/Sodium Chloride (Dextrose 5%/0.45% Ns 1000 Ml) 1,000 mls @ 60 mls/hr IV .[id number] [facility] Last Admin: 04/26/17 20:55 Dose: 60 mls/hr Methimazole (Tapazole) 5 mg PO DAILY [facility] Last Admin: 04/26/17 09:56 Dose: 5 mg Multivitamins (Hexavitamin) 1 tab PO DAILY [facility] Last Admin: 04/26/17 09:56 Dose: 1 tab Mupirocin (Bactroban Ointment) 0 gm TOP BID [facility] Last Admin: 04/26/17 17:26 Dose: Not Given - Labs Labs: 04/25/17 07:44 04/25/17 07:44 PT 19.5 SECONDS (9.7-12.2) H 04/21/17 19:40 INR 1.7 04/21/17 19:40 APTT 37 SECONDS (21-34) H 04/21/17 19:40 - Constitutional Appears: Non-toxic - Eye Exam Eye Exam: absent: Scleral icterus - Neck Exam Neck Exam: Full ROM - Respiratory Exam Respiratory Exam: Decreased Breath Sounds, Rales - Cardiovascular Exam Cardiovascular Exam: REGULAR RHYTHM - GI/Abdominal Exam GI & Abdominal Exam: Soft - Extremities Exam Extremities Exam: Calf Tenderness, Pedal Edema - Neurological Exam Neurological Exam: Alert, Oriented x3 Assessment and Plan - Assessment and Plan (Free Text) Assessment: Pneumonia Pulmonary nodules - pulmonary on board hepatic lesion of unknown etiology Hx of PE Anemia Myelodysplastic disorder Plan: Cont abtx
--- NOTE | 2017-04-27 10:29 | CP.PCM.CON ---
History of Present Illness - History of Present Illness History of Present Illness: This is a 76 year old man admitted with shortness of breath, fever and weakness. GI consulted for abnormal CT scan. Patient was recently admitted 02/05-02/15/17 for pulmonary embolus and 04/09-2016 for cellulitis. Patient presented to the ER 04/21/17 for fever, shortness of breath and weakness. She was admitted with a working diagnosis of pneumonia. CT scan of the chest did not show any infiltrates, but a vague lesion in the right hepatic lobe was reported. Of note, a CT scan of the abdomen performed 02/05/17 showed only two liver cysts. Patient denies having any liver problems. She denies having abdominal pain, nausea, vomiting, heartburn, difficulty swallowing, constipation, and rectal bleeding. She did have three, small, loose bowel movements yesterday. Review of Systems - Constitutional Constitutional: Fever, Weakness - Respiratory Respiratory: Dyspnea - Gastrointestinal Gastrointestinal: absent: Abdominal Pain, Constipation, Dysphagia, Heartburn, Hematochezia, Nausea, Vomiting Past Patient History - Infectious Disease Hx of Infectious Diseases: None - Past Medical History & Family History Past Medical History?: Yes - Past Social History Smoking Status: Former Smoker - CARDIAC Hx Cardiac Disorders: Yes Hx Hypercholesterolemia: Yes Hx Hypertension: Yes - PULMONARY Hx Respiratory Disorders: No - NEUROLOGICAL Hx Neurological Disorder: No - HEENT Hx HEENT Problems: No - RENAL Hx Chronic Kidney Disease: No - ENDOCRINE/METABOLIC Hx Hypothyroidism: Yes - HEMATOLOGICAL/ONCOLOGICAL Hx Blood Disorders: Yes Other/Comment: MDS- MYELODYSPLASTIC SYNDROME - INTEGUMENTARY Hx Dermatological Problems: No - MUSCULOSKELETAL/RHEUMATOLOGICAL Hx Musculoskeletal Disorders: Yes Hx Falls: Yes - GASTROINTESTINAL Hx Gastrointestinal Disorders: Yes Hx Gastritis: Yes - GENITOURINARY/GYNECOLOGICAL Hx Genitourinary Disorders: No - PSYCHIATRIC Hx Psychophysiologic Disorder: No Hx Substance Use: No - SURGICAL HISTORY Hx Surgeries: No - ANESTHESIA Hx Anesthesia: No Meds Allergies/Adverse Reactions: Allergies Allergy/AdvReac Type Severity Reaction Status Date / Time No Known Allergies Allergy Verified 04/21/17 18:02 - Medications Medications: Current Medications Acetaminophen (Tylenol 325mg Tab) 650 mg PO Q6 PRN PRN Reason: Pain, moderate (4-7) Last Admin: 04/22/17 10:32 Dose: 650 mg Amlodipine Besylate (Norvasc) 5 mg PO DAILY [facility] Last Admin: 04/26/17 09:56 Dose: 5 mg Apixaban (Eliquis) 5 mg PO BID [facility] Last Admin: 04/26/17 17:28 Dose: 5 mg Calcium Carbonate (Oscal) 500 mg PO DAILY [facility] Last Admin: 04/26/17 09:56 Dose: 500 mg Home Med (Patient's Own Medication) 1 tab PO DAILY [facility] Last Admin: 04/26/17 10:00 Dose: 1 tab Hydrocortisone (Cortizone 2.5%) 1 gm TOP BID PRN PRN Reason: for itchiness Last Admin: 04/26/17 20:55 Dose: 1 gm Dextrose/Sodium Chloride (Dextrose 5%/0.45% Ns 1000 Ml) 1,000 mls @ 60 mls/hr IV .[id number] [facility] Last Admin: 04/26/17 20:55 Dose: 60 mls/hr Methimazole (Tapazole) 5 mg PO DAILY [facility] Last Admin: 04/26/17 09:56 Dose: 5 mg Multivitamins (Hexavitamin) 1 tab PO DAILY [facility] Last Admin: 04/26/17 09:56 Dose: 1 tab Mupirocin (Bactroban Ointment) 0 gm TOP BID [facility] [place] Last Admin: 04/26/17 17:26 Dose: Not Given Physical Exam - Constitutional Appears: No Acute Distress - Head Exam Head Exam: ATRAUMATIC, NORMOCEPHALIC - Eye Exam Eye Exam: EOMI - Neck Exam Neck exam: Negative for: Lymphadenopathy, Thyromegaly - Respiratory Exam Respiratory Exam: NORMAL BREATHING PATTERN. absent: Rales, Rhonchi, Wheezes - Cardiovascular Exam Cardiovascular Exam: REGULAR RHYTHM, +S1, +S2. absent: Gallop, Rubs, Systolic Murmur - GI/Abdominal Exam GI & Abdominal Exam: Normal Bowel Sounds, Soft. absent: Mass, Organomegaly, Tenderness - Rectal Exam Rectal Exam: Deferred - Extremities Exam Extremities exam: Negative for: calf tenderness, pedal edema Results - Vital Signs Recent Vital Signs: Last Vital Signs Temp 98.6 F 04/27/17 08:01 Pulse 91 H 04/27/17 08:01 Resp 20 04/27/17 08:01 BP 101/68 04/27/17 08:01 Pulse Ox 95 04/27/17 08:01 - Labs Result Diagrams: 04/25/17 07:44 04/25/17 07:44 Assessment & Plan (1) Abnormal CT of liver Assessment and Plan: Recent CT scan of chest reported an ill-defined lesion in the liver. I am not convinced that there is an abnormality of this sort, and I will order an MRI. Status: Acute
[2017-04-27] MEDS: methIMAzole 5 MG TAB PO SCH (10:41)
[2017-04-27] MEDS: Multiple Vitamins Tab PO SCH (10:42)
[2017-04-27] MEDS: REVLIMID 5 MG PO SCH (10:43)
[2017-04-27] MEDS: Hydrocortisone 2.5% Oint (20 gm) TOP PRN (10:50)
[2017-04-27] MEDS: Dextrose 5%/0.45% NS 1,000 ML IV SCH (15:01)
--- NOTE | 2017-04-27 15:39 | CP.PCM.PN ---
Subjective - Date & Time of Evaluation Date of Evaluation: 04/27/17 Time of Evaluation: 08:00 - Subjective Subjective: less cough less sob MRI liver pending Objective - Vital Signs/Intake and Output Vital Signs (last 24 hours): Temp Pulse Resp BP Pulse Ox 98.6 F 91 H 20 101/68 95 04/27/17 08:01 04/27/17 08:01 04/27/17 08:01 04/27/17 08:01 04/27/17 08:01 Intake and Output: 04/27/17 04/27/17 06:59 18:59 Intake Total 1460 900 Output Total 500 Balance 960 900 - Medications Medications: Current Medications Acetaminophen (Tylenol 325mg Tab) 650 mg PO Q6 PRN PRN Reason: Pain, moderate (4-7) Last Admin: 04/22/17 10:32 Dose: 650 mg Amlodipine Besylate (Norvasc) 5 mg PO DAILY [facility] Last Admin: 04/27/17 10:46 Dose: Not Given Apixaban (Eliquis) 5 mg PO BID [facility] Last Admin: 04/27/17 10:42 Dose: 5 mg Calcium Carbonate (Oscal) 500 mg PO DAILY [facility] Last Admin: 04/27/17 10:42 Dose: 500 mg Home Med (Patient's Own Medication) 1 tab PO DAILY [facility] Last Admin: 04/27/17 10:43 Dose: 1 tab Hydrocortisone (Cortizone 2.5%) 1 gm TOP BID PRN PRN Reason: for itchiness Last Admin: 04/27/17 10:50 Dose: 1 gm Dextrose/Sodium Chloride (Dextrose 5%/0.45% Ns 1000 Ml) 1,000 mls @ 60 mls/hr IV .[id number] [facility] Last Admin: 04/27/17 15:01 Dose: 60 mls/hr Cefepime HCl 1 gm/ Dextrose 50 mls @ 100 mls/hr IVPB Q12H [facility] Last Admin: 04/27/17 14:57 Dose: 100 mls/hr Methimazole (Tapazole) 5 mg PO DAILY [facility] Last Admin: 04/27/17 10:41 Dose: 5 mg Multivitamins (Hexavitamin) 1 tab PO DAILY [facility] Last Admin: 04/27/17 10:42 Dose: 1 tab Mupirocin (Bactroban Ointment) 0 gm TOP BID [facility] Last Admin: 04/27/17 10:41 Dose: Not Given - Labs Labs: 04/25/17 07:44 04/25/17 07:44 PT 19.5 SECONDS (9.7-12.2) H 04/21/17 19:40 INR 1.7 04/21/17 19:40 APTT 37 SECONDS (21-34) H 04/21/17 19:40 - Constitutional Appears: Non-toxic, Chronically Ill - Head Exam Head Exam: NORMOCEPHALIC - Eye Exam Eye Exam: PERRL - ENT Exam ENT Exam: Mucous Membranes Dry - Neck Exam Neck Exam: absent: Lymphadenopathy - Respiratory Exam Respiratory Exam: Decreased Breath Sounds - Cardiovascular Exam Cardiovascular Exam: REGULAR RHYTHM - GI/Abdominal Exam GI & Abdominal Exam: Distended, Soft. absent: Tenderness - Rectal Exam Rectal Exam: Deferred - Exam Exam: NORMAL INSPECTION Assessment and Plan (1) Dehydration Status: Acute (2) Lower respiratory infection Status: Acute (3) Myelodysplasia (myelodysplastic syndrome) Status: Acute (4) Pneumonia Status: Acute (5) Symptomatic anemia Status: Acute - Assessment and Plan (Free Text) Assessment: cont iv rx
--- NOTE | 2017-04-28 08:42 | CP.PCM.PN ---
Subjective - Date & Time of Evaluation Date of Evaluation: 04/27/17 Time of Evaluation: 11:00 - Subjective Subjective: less cough no fever CT of chest - ill-defined lesion in the liver Objective - Vital Signs/Intake and Output Vital Signs (last 24 hours): Temp Pulse Resp BP Pulse Ox 96.9 F L 61 18 129/80 99 04/27/17 23:52 04/27/17 23:52 04/27/17 23:52 04/27/17 23:52 04/27/17 23:52 Intake and Output: 04/28/17 04/28/17 06:59 18:59 Intake Total 1310 Output Total 400 Balance 910 - Medications Medications: Current Medications Acetaminophen (Tylenol 325mg Tab) 650 mg PO Q6 PRN PRN Reason: Pain, moderate (4-7) Last Admin: 04/22/17 10:32 Dose: 650 mg Amlodipine Besylate (Norvasc) 5 mg PO DAILY [facility] Last Admin: 04/27/17 10:46 Dose: Not Given Apixaban (Eliquis) 5 mg PO BID [facility] Last Admin: 04/27/17 17:50 Dose: 5 mg Calcium Carbonate (Oscal) 500 mg PO DAILY [facility] Last Admin: 04/27/17 10:42 Dose: 500 mg Home Med (Patient's Own Medication) 1 tab PO DAILY [facility] Last Admin: 04/27/17 10:43 Dose: 1 tab Hydrocortisone (Cortizone 2.5%) 1 gm TOP BID PRN PRN Reason: for itchiness Last Admin: 04/27/17 10:50 Dose: 1 gm Dextrose/Sodium Chloride (Dextrose 5%/0.45% Ns 1000 Ml) 1,000 mls @ 60 mls/hr IV .[id number] [facility] Last Admin: 04/27/17 15:01 Dose: 60 mls/hr Cefepime HCl 1 gm/ Dextrose 50 mls @ 100 mls/hr IVPB Q12H [facility] Last Admin: 04/28/17 02:10 Dose: 100 mls/hr Methimazole (Tapazole) 5 mg PO DAILY [facility] Last Admin: 04/27/17 10:41 Dose: 5 mg Multivitamins (Hexavitamin) 1 tab PO DAILY [facility] Last Admin: 04/27/17 10:42 Dose: 1 tab Mupirocin (Bactroban Ointment) 0 gm TOP BID [facility] Last Admin: 04/27/17 18:00 Dose: Not Given - Labs Labs: 04/25/17 07:44 04/25/17 07:44 PT 19.5 SECONDS (9.7-12.2) H 04/21/17 19:40 INR 1.7 04/21/17 19:40 APTT 37 SECONDS (21-34) H 04/21/17 19:40 - Constitutional Appears: Non-toxic - Head Exam Head Exam: ATRAUMATIC - Eye Exam Eye Exam: absent: Scleral icterus - ENT Exam ENT Exam: Mucous Membranes Moist - Neck Exam Neck Exam: Full ROM. absent: Lymphadenopathy - Respiratory Exam Respiratory Exam: Decreased Breath Sounds - Cardiovascular Exam Cardiovascular Exam: REGULAR RHYTHM - GI/Abdominal Exam GI & Abdominal Exam: absent: Soft - Extremities Exam Extremities Exam: absent: Pedal Edema - Neurological Exam Neurological Exam: Alert. absent: Oriented x3 Assessment and Plan - Assessment and Plan (Free Text) Assessment: Pneumonia Myelodysplastic syndrome Abnormal CT of Chest Anemia Plan: Case discussed w/ Dr Thurman MRI of Liver Cont neb tx Cont abtx
[2017-04-28 09:22] VITALS: RESP 20
[2017-04-28] MEDS: Multiple Vitamins Tab PO SCH (10:00)
[2017-04-28] MEDS: methIMAzole 5 MG TAB PO SCH (10:00)
[2017-04-28] MEDS: REVLIMID 5 MG PO SCH (10:00)
--- NOTE | 2017-04-28 10:23 | CP.PCM.PN ---
Subjective - Date & Time of Evaluation Date of Evaluation: 04/28/17 Time of Evaluation: 10:21 - Subjective Subjective: Patient denies having nausea, vomiting, abdominal lal. She had one small bowel movement this morning. Objective - Vital Signs/Intake and Output Vital Signs (last 24 hours): Temp Pulse Resp BP Pulse Ox 98.1 F 86 20 125/50 L 96 04/28/17 09:00 04/28/17 09:00 04/28/17 09:00 04/28/17 09:00 04/28/17 09:00 Intake and Output: 04/28/17 04/28/17 06:59 18:59 Intake Total 1310 Output Total 400 Balance 910 - Medications Medications: Current Medications Acetaminophen (Tylenol 325mg Tab) 650 mg PO Q6 PRN PRN Reason: Pain, moderate (4-7) Last Admin: 04/22/17 10:32 Dose: 650 mg Amlodipine Besylate (Norvasc) 5 mg PO DAILY [facility] Last Admin: 04/27/17 10:46 Dose: Not Given Apixaban (Eliquis) 5 mg PO BID [facility] Last Admin: 04/27/17 17:50 Dose: 5 mg Calcium Carbonate (Oscal) 500 mg PO DAILY [facility] Last Admin: 04/27/17 10:42 Dose: 500 mg Home Med (Patient's Own Medication) 1 tab PO DAILY [facility] Last Admin: 04/27/17 10:43 Dose: 1 tab Hydrocortisone (Cortizone 2.5%) 1 gm TOP BID PRN PRN Reason: for itchiness Last Admin: 04/27/17 10:50 Dose: 1 gm Dextrose/Sodium Chloride (Dextrose 5%/0.45% Ns 1000 Ml) 1,000 mls @ 60 mls/hr IV .[id number] [facility] Last Admin: 04/27/17 15:01 Dose: 60 mls/hr Cefepime HCl 1 gm/ Dextrose 50 mls @ 100 mls/hr IVPB Q12H [facility] Last Admin: 04/28/17 02:10 Dose: 100 mls/hr Methimazole (Tapazole) 5 mg PO DAILY [facility] Last Admin: 04/27/17 10:41 Dose: 5 mg Multivitamins (Hexavitamin) 1 tab PO DAILY [facility] Last Admin: 04/27/17 10:42 Dose: 1 tab Mupirocin (Bactroban Ointment) 0 gm TOP BID [facility] Last Admin: 04/27/17 18:00 Dose: Not Given - Labs Labs: 04/25/17 07:44 04/25/17 07:44 PT 19.5 SECONDS (9.7-12.2) H 04/21/17 19:40 INR 1.7 04/21/17 19:40 APTT 37 SECONDS (21-34) H 04/21/17 19:40 - Constitutional Appears: No Acute Distress - Head Exam Head Exam: ATRAUMATIC, NORMOCEPHALIC - Eye Exam Eye Exam: EOMI - Neck Exam Neck Exam: absent: Lymphadenopathy, Thyromegaly - Respiratory Exam Respiratory Exam: NORMAL BREATHING PATTERN. absent: Rales, Rhonchi, Wheezes - Cardiovascular Exam Cardiovascular Exam: REGULAR RHYTHM, +S1, +S2. absent: Gallop, Rubs, Murmur - GI/Abdominal Exam GI & Abdominal Exam: Soft, Normal Bowel Sounds. absent: Tenderness, Mass, Organomegaly - Rectal Exam Rectal Exam: Deferred - Extremities Exam Extremities Exam: absent: Calf Tenderness, Pedal Edema Assessment and Plan (1) Abnormal CT of liver Assessment & Plan: Liver enzymes and MRI of the liver are pending. If a parenchymal mass is confirmed by MRI, will consider guided biopsy. Status: Acute
--- NOTE | 2017-04-28 11:35 | CP.PCM.PN ---
Subjective - Date & Time of Evaluation Date of Evaluation: 04/28/17 Time of Evaluation: 08:00 - Subjective Subjective: bands trending down for MRI abd Objective - Vital Signs/Intake and Output Vital Signs (last 24 hours): Temp Pulse Resp BP Pulse Ox 98.1 F 86 20 125/50 L 96 04/28/17 09:00 04/28/17 09:00 04/28/17 09:00 04/28/17 09:00 04/28/17 09:00 Intake and Output: 04/28/17 04/28/17 06:59 18:59 Intake Total 1310 Output Total 400 Balance 910 - Medications Medications: Current Medications Acetaminophen (Tylenol 325mg Tab) 650 mg PO Q6 PRN PRN Reason: Pain, moderate (4-7) Last Admin: 04/22/17 10:32 Dose: 650 mg Amlodipine Besylate (Norvasc) 5 mg PO DAILY [facility] Last Admin: 04/27/17 10:46 Dose: Not Given Apixaban (Eliquis) 5 mg PO BID [facility] Last Admin: 04/27/17 17:50 Dose: 5 mg Calcium Carbonate (Oscal) 500 mg PO DAILY [facility] Last Admin: 04/27/17 10:42 Dose: 500 mg Home Med (Patient's Own Medication) 1 tab PO DAILY [facility] Last Admin: 04/27/17 10:43 Dose: 1 tab Hydrocortisone (Cortizone 2.5%) 1 gm TOP BID PRN PRN Reason: for itchiness Last Admin: 04/27/17 10:50 Dose: 1 gm Dextrose/Sodium Chloride (Dextrose 5%/0.45% Ns 1000 Ml) 1,000 mls @ 60 mls/hr IV .[id number] [facility] Last Admin: 04/27/17 15:01 Dose: 60 mls/hr Cefepime HCl 1 gm/ Dextrose 50 mls @ 100 mls/hr IVPB Q12H [facility] Last Admin: 04/28/17 02:10 Dose: 100 mls/hr Methimazole (Tapazole) 5 mg PO DAILY [facility] Last Admin: 04/27/17 10:41 Dose: 5 mg Multivitamins (Hexavitamin) 1 tab PO DAILY [facility] Last Admin: 04/27/17 10:42 Dose: 1 tab Mupirocin (Bactroban Ointment) 0 gm TOP BID [facility] Last Admin: 04/27/17 18:00 Dose: Not Given - Labs Labs: 04/25/17 07:44 04/25/17 07:44 PT 19.5 SECONDS (9.7-12.2) H 04/21/17 19:40 INR 1.7 04/21/17 19:40 APTT 37 SECONDS (21-34) H 04/21/17 19:40 - Constitutional Appears: Non-toxic, Cachectic - Head Exam Head Exam: NORMOCEPHALIC - Eye Exam Eye Exam: PERRL - ENT Exam ENT Exam: Mucous Membranes Dry - Neck Exam Neck Exam: absent: Lymphadenopathy - Respiratory Exam Respiratory Exam: Decreased Breath Sounds - Cardiovascular Exam Cardiovascular Exam: REGULAR RHYTHM - GI/Abdominal Exam GI & Abdominal Exam: Distended, Soft Assessment and Plan (1) Dehydration Status: Acute (2) Lower respiratory infection Status: Acute (3) Myelodysplasia (myelodysplastic syndrome) Status: Acute (4) Pneumonia Status: Acute (5) Symptomatic anemia Status: Acute
[2017-04-28 12:03] LABS: BASO % 0.1 % (0.0-2.0); EOS # 0.4 K/uL (0.0-0.7); EOS % 8.9 % (0.0-4.0); HEMATOCRIT 28.2 % (34.0-47.0); LYMPH # 2.5 K/uL (1.0-4.3); MEAN CELL VOLUME 80.6 fL (81.0-99.0); MEAN CORPUSCULAR HEMOGLOBIN 26.6 pg (27.0-31.0); MEAN CORPUSCULAR HGB CONC 33.1 g/dL (33.0-37.0); MEAN PLATELET VOLUME 10.4 fL (7.2-11.7); MONO % 0.2 % (0.0-10.0); NRBC % 0.4 % (0.0-2.0); PLATELET COUNT 420 K/uL (130-400); RED CELL DISTRIBUTION WIDTH 24.7 % (11.5-14.5)
[2017-04-28] MEDS ORDERED: Gadodiamide 287 MG/ML VIAL (15ML) IV ONE (12:12)
[2017-04-28 12:32] LABS: ALKALINE PHOSPHATASE 72 U/L (38-126); ALT/SGPT 39 U/L (9-52); AST/SGOT 35 U/L (14-36); BILIRUBIN,TOTAL 0.7 mg/dL (0.2-1.3); BLOOD UREA NITROGEN 7 mg/dL (7-17); CALCIUM 7.9 mg/dl (8.6-10.4); CARBON DIOXIDE 32 mmol/L (22-30); CHLORIDE 96 mmol/L (98-107); GFR AFRICAN-AMERICAN > 60; GLUCOSE,RANDOM 93 mg/dL (65-105); POTASSIUM 4.3 mmol/L (3.6-5.2); SODIUM 131 mmol/L (132-148); TOTAL PROTEIN 6.7 g/dL (6.3-8.3)
--- NOTE | 2017-04-28 12:51 | CP.PCM.PN ---
Subjective - Date & Time of Evaluation Date of Evaluation: 04/28/17 Time of Evaluation: 08:20 - Subjective Subjective: patient seen and examined denies shortness of breath, denies fever chills Less cough For CAT scan of the abdomen and pelvis Seen by GI On antibiotics per infectious disease Objective - Vital Signs/Intake and Output Vital Signs (last 24 hours): Temp Pulse Resp BP Pulse Ox 98.1 F 86 20 125/50 L 96 04/28/17 09:00 04/28/17 09:00 04/28/17 09:00 04/28/17 09:00 04/28/17 09:00 Intake and Output: 04/28/17 04/28/17 06:59 18:59 Intake Total 1310 Output Total 400 Balance 910 - Medications Medications: Current Medications Acetaminophen (Tylenol 325mg Tab) 650 mg PO Q6 PRN PRN Reason: Pain, moderate (4-7) Last Admin: 04/22/17 10:32 Dose: 650 mg Amlodipine Besylate (Norvasc) 5 mg PO DAILY [facility] Last Admin: 04/27/17 10:46 Dose: Not Given Apixaban (Eliquis) 5 mg PO BID [facility] Calcium Carbonate (Oscal) 500 mg PO DAILY [facility] Last Admin: 04/27/17 10:42 Dose: 500 mg Home Med (Patient's Own Medication) 1 tab PO DAILY [facility] Last Admin: 04/27/17 10:43 Dose: 1 tab Hydrocortisone (Cortizone 2.5%) 1 gm TOP BID PRN PRN Reason: for itchiness Last Admin: 04/27/17 10:50 Dose: 1 gm Dextrose/Sodium Chloride (Dextrose 5%/0.45% Ns 1000 Ml) 1,000 mls @ 60 mls/hr IV .[id number] [facility] Last Admin: 04/27/17 15:01 Dose: 60 mls/hr Cefepime HCl 1 gm/ Dextrose 50 mls @ 100 mls/hr IVPB Q12H [facility] Last Admin: 04/28/17 02:10 Dose: 100 mls/hr Methimazole (Tapazole) 5 mg PO DAILY [facility] Last Admin: 04/27/17 10:41 Dose: 5 mg Multivitamins (Hexavitamin) 1 tab PO DAILY [facility] Last Admin: 04/27/17 10:42 Dose: 1 tab Mupirocin (Bactroban Ointment) 0 gm TOP BID [facility] Last Admin: 04/27/17 18:00 Dose: Not Given - Labs Labs: 04/28/17 11:41 04/28/17 11:41 PT 19.5 SECONDS (9.7-12.2) H 04/21/17 19:40 INR 1.7 04/21/17 19:40 APTT 37 SECONDS (21-34) H 04/21/17 19:40 Assessment and Plan (1) Pneumonia Status: Acute
[2017-04-28 12:58] LABS: BASOPHIL 1 % (0-2); EOSINOPHIL 16 % (0-4); NEUTROPHIL 46 % (50-75); REACTIVE LYMPHOCYTES 6 % (0-0); TOTAL CELLS COUNTED 100
[2017-04-28 12:59] LABS: LARGE PLATELETS PRESENT
--- NOTE | 2017-04-28 14:26 | MRI ---
PROCEDURE: MRI Abdomen with and without contrast HISTORY: Abnormal finding on chest CT examination of 04/24/2017 COMPARISON: CT chest 04/24/2017. CT abdomen/ pelvis 02/05/2017. TECHNIQUE: Multisequence, multiplanar MR images of the abdomen with and without gadolinium contrast enhancement. FINDINGS: LIVER: Minimal hepatomegaly. Smooth contour. Several small cysts with characteristic signal characteristics are identified. There are multiple areas of ill-defined increased signal intensity on T2 weighted images. On series 5, abnormal ill-defined signal is seen on in multiple locations throughout the right and left lobe of the liver. On diffusion-weighted images, there are multiple foci of abnormal signal appreciated in addition to those corresponding to T2 signal from known hepatic cysts. Following gadolinium administration, on the arterial phase images (series 13), there are multiple small foci of abnormal enhancement. These are of uncertain significance. In the medial left lobe on 67, there is a small peripheral area of more intense focal enhancement, approximately 10 mm in diameter. On image 62 of series 13, there is a peripheral wedge shaped area of ill-defined enhancement measuring 2.0 cm in diameter. In this location, the possibility of vascular phenomenon such as apparent venous drainage should be considered. On series 14, image 58, there is an ill-defined area of low signal, surrounded by thin peripheral enhancement, corresponding to the location of the ill-defined low-attenuation lesion on chest CT examination of 04/24/2017. A similar low signal lesion is seen on image 69. This does not correspond to a finding on CT examination. All of these areas of abnormal signal, aside from those corresponding to obvious cysts, are nonspecific. The possibility of metastatic disease must be considered. Multifocal hepatic cellular neoplasm is less likely. GALLBLADDER: There is a mildly enhancing nonspecific soft tissue signal seen along the inferior aspect of the gallbladder. This is most prominently seen on series 15, image 29. It is somewhat exophytic to the gallbladder and measures approximately 9 x 12 mm. This is concerning for a gallbladder neoplasm. Further evaluation is necessary. Recommend evaluation with ultrasound. This may also be of some benefit for evaluation of the apparent liver lesions noted above. SPLEEN: Unremarkable. PANCREAS: Unremarkable. ADRENALS: Unremarkable. KIDNEYS: Unremarkable. AORTA: No aneurysm. ASCITES: None. PERITONEUM: Unremarkable. LYMPH NODES: Unremarkable. OTHER FINDINGS: None. IMPRESSION: Multiple foci of ill-defined T2 signal and enhancement with gadolinium administration. No definite correspondence is demonstrated between the areas of high signal on T2 weighted images and the areas of enhancement on post gadolinium images. The area of most striking focal diffusion restriction corresponds to the wedge shaped 2 cm peripheral lesion in the medial left lobe on the 15 second post gadolinium images. This should be further evaluated ultrasound examination. The possibility of metastatic disease should be considered. In addition, there is a soft tissue density along the inferior border of the gall bladder, mildly exophytic, measuring approximately 12 mm in greatest dimension. This should also be further evaluated with ultrasound examination.
[2017-04-29] MEDS: Multiple Vitamins Tab PO SCH (09:35)
[2017-04-29] MEDS: methIMAzole 5 MG TAB PO SCH (09:35)
[2017-04-29] MEDS: REVLIMID 5 MG PO SCH (09:37)
[2017-04-29] MEDS: Dextrose 5%/0.45% NS 1,000 ML IV SCH ×3 (09:40→22:40)
--- NOTE | 2017-04-29 11:11 | CP.PCM.PN ---
Subjective - Date & Time of Evaluation Date of Evaluation: 04/29/17 Time of Evaluation: 09:00 - Subjective Subjective: await clearance by GI and cardio Objective - Vital Signs/Intake and Output Vital Signs (last 24 hours): Temp Pulse Resp BP Pulse Ox 99.4 F 89 20 109/68 96 04/29/17 08:07 04/29/17 08:07 04/29/17 08:07 04/29/17 08:07 04/29/17 08:07 Intake and Output: 04/29/17 04/29/17 06:59 18:59 Intake Total 660 Balance 660 - Medications Medications: Current Medications Acetaminophen (Tylenol 325mg Tab) 650 mg PO Q6 PRN PRN Reason: Pain, moderate (4-7) Last Admin: 04/22/17 10:32 Dose: 650 mg Amlodipine Besylate (Norvasc) 5 mg PO DAILY [facility] Last Admin: 04/29/17 09:35 Dose: 5 mg Apixaban (Eliquis) 5 mg PO BID [facility] Last Admin: 04/29/17 09:35 Dose: 5 mg Calcium Carbonate (Oscal) 500 mg PO DAILY [facility] Last Admin: 04/29/17 09:35 Dose: 500 mg Home Med (Patient's Own Medication) 1 tab PO DAILY [facility] Last Admin: 04/29/17 09:37 Dose: 1 tab Hydrocortisone (Cortizone 2.5%) 1 gm TOP BID PRN PRN Reason: for itchiness Last Admin: 04/27/17 10:50 Dose: 1 gm Dextrose/Sodium Chloride (Dextrose 5%/0.45% Ns 1000 Ml) 1,000 mls @ 60 mls/hr IV .[id number] [facility] Last Admin: 04/29/17 09:40 Dose: 60 mls/hr Cefepime HCl 1 gm/ Dextrose 50 mls @ 100 mls/hr IVPB Q12H [facility] Last Admin: 04/29/17 02:49 Dose: 100 mls/hr Methimazole (Tapazole) 5 mg PO DAILY [facility] Last Admin: 04/29/17 09:35 Dose: 5 mg Multivitamins (Hexavitamin) 1 tab PO DAILY [facility] Last Admin: 04/29/17 09:35 Dose: 1 tab Mupirocin (Bactroban Ointment) 0 gm TOP BID [facility] Last Admin: 04/29/17 09:36 Dose: Not Given - Labs Labs: 04/28/17 11:41 04/28/17 11:41 PT 19.5 SECONDS (9.7-12.2) H 04/21/17 19:40 INR 1.7 04/21/17 19:40 APTT 37 SECONDS (21-34) H 04/21/17 19:40 - Constitutional Appears: Non-toxic, Cachectic, Chronically Ill - Head Exam Head Exam: NORMOCEPHALIC - Eye Exam Eye Exam: PERRL - ENT Exam ENT Exam: Mucous Membranes Dry - Neck Exam Neck Exam: absent: Lymphadenopathy - Respiratory Exam Respiratory Exam: Decreased Breath Sounds - Cardiovascular Exam Cardiovascular Exam: REGULAR RHYTHM - GI/Abdominal Exam GI & Abdominal Exam: Distended, Soft Assessment and Plan (1) Dehydration Status: Acute (2) Lower respiratory infection Status: Acute (3) Myelodysplasia (myelodysplastic syndrome) Status: Acute (4) Pneumonia Status: Acute (5) Symptomatic anemia Status: Acute
--- NOTE | 2017-04-29 11:24 | CP.PCM.PN ---
Subjective - Date & Time of Evaluation Date of Evaluation: 04/29/17 Time of Evaluation: 11:19 - Subjective Subjective: Patient denies having nausea, vomiting, abdominal pain. She had one small, formed stool this morning. Objective - Vital Signs/Intake and Output Vital Signs (last 24 hours): Temp Pulse Resp BP Pulse Ox 99.4 F 89 20 109/68 96 04/29/17 08:07 04/29/17 08:07 04/29/17 08:07 04/29/17 08:07 04/29/17 08:07 Intake and Output: 04/29/17 04/29/17 06:59 18:59 Intake Total 660 Balance 660 - Medications Medications: Current Medications Acetaminophen (Tylenol 325mg Tab) 650 mg PO Q6 PRN PRN Reason: Pain, moderate (4-7) Last Admin: 04/22/17 10:32 Dose: 650 mg Amlodipine Besylate (Norvasc) 5 mg PO DAILY [facility] Last Admin: 04/29/17 09:35 Dose: 5 mg Apixaban (Eliquis) 5 mg PO BID [facility] Last Admin: 04/29/17 09:35 Dose: 5 mg Calcium Carbonate (Oscal) 500 mg PO DAILY [facility] Last Admin: 04/29/17 09:35 Dose: 500 mg Home Med (Patient's Own Medication) 1 tab PO DAILY [facility] Last Admin: 04/29/17 09:37 Dose: 1 tab Hydrocortisone (Cortizone 2.5%) 1 gm TOP BID PRN PRN Reason: for itchiness Last Admin: 04/27/17 10:50 Dose: 1 gm Dextrose/Sodium Chloride (Dextrose 5%/0.45% Ns 1000 Ml) 1,000 mls @ 60 mls/hr IV .[id number] [facility] Last Admin: 04/29/17 09:40 Dose: 60 mls/hr Cefepime HCl 1 gm/ Dextrose 50 mls @ 100 mls/hr IVPB Q12H [facility] Last Admin: 04/29/17 02:49 Dose: 100 mls/hr Methimazole (Tapazole) 5 mg PO DAILY [facility] Last Admin: 04/29/17 09:35 Dose: 5 mg Multivitamins (Hexavitamin) 1 tab PO DAILY [facility] Last Admin: 04/29/17 09:35 Dose: 1 tab Mupirocin (Bactroban Ointment) 0 gm TOP BID [facility] Last Admin: 04/29/17 09:36 Dose: Not Given - Labs Labs: 04/28/17 11:41 04/28/17 11:41 PT 19.5 SECONDS (9.7-12.2) H 04/21/17 19:40 INR 1.7 04/21/17 19:40 APTT 37 SECONDS (21-34) H 04/21/17 19:40 - Constitutional Appears: No Acute Distress - Head Exam Head Exam: ATRAUMATIC, NORMOCEPHALIC - Eye Exam Eye Exam: EOMI - Neck Exam Neck Exam: absent: Lymphadenopathy, Thyromegaly - Respiratory Exam Respiratory Exam: NORMAL BREATHING PATTERN. absent: Rales, Rhonchi, Wheezes - Cardiovascular Exam Cardiovascular Exam: REGULAR RHYTHM, +S1, +S2. absent: Gallop, Rubs, Murmur - GI/Abdominal Exam GI & Abdominal Exam: Soft, Normal Bowel Sounds. absent: Tenderness, Mass, Organomegaly - Rectal Exam Rectal Exam: Deferred - Extremities Exam Extremities Exam: absent: Calf Tenderness, Pedal Edema Assessment and Plan (1) Abnormal CT of liver Assessment & Plan: MRI shows multiple ill-defined foci, possible metastatic disease, and a soft tissue density along the inferior border of the gallbladder measuring 1.2 cm, possible neoplasm. Further evaluation with sonography was recommended. Will request sonogram and CT of the liver. Status: Acute
[2017-04-29] MEDS ORDERED: Iodixanol 320 MG/ML 100 ML BOTTLE IV ONE (13:28)
--- NOTE | 2017-04-29 16:01 | CT ---
CT liver protocol triple phase Indication: Liver lesions, GB mass on MRI Technique: Contiguous axial images of the abdomen without & with IV contrast utilizing liver protocol. Coronal and Sagittal reformats generated and reviewed. This CT exam was performed using 1 or more of the falling dose reduction techniques: Automated exposure control, adjustment of the MAA and/or kV according to patient size, and/or use of iterative reconstruction technique. Contrast: Oral contrast was not administered. 100 mL Visipaque IV. Radiation dose: Total exam DLP = 829.31 MGy-cm. Comparison: MRI abdomen without and with IV contrast performed 04/28/17 Findings: Noncontrast, mixed portal venous, and portal venous phases were obtained. Visualized portions of the heart appear within normal limits of size. There is no visible consolidation, pleural effusion, or pneumothorax. Irregular 8 mm left lower lobe pulmonary nodule (series 6, image 20). Decompressed gallbladder cannot be adequately assessed. 2 too small to characterize hepatic hypodensities. Hepatomegaly. 2 splenic wedge-shaped peripheral hypodensity involving the upper lateral spleen, favored to represent infarctions. The kidneys enhance symmetrically. No hydronephrosis or obstructing calculus identified. Pancreatic atrophy. The adrenal glands appear unremarkable. The stomach is nondistended. Lack of oral contrast limits evaluation for bowel pathology. Right colonic wall appears thickened with adjacent inflammatory changes ; correlate clinically for possibility of colitis. The bowel loops appear within normal limits of caliber without evidence of intestinal obstruction. There is no definite free air. Osseous demineralization. Scoliosis. Degenerative changes. Impression: Irregular 8 mm left lower lobe pulmonary nodule. Recommend further evaluation with biopsy, PET- CT, or follow-up CT at 3 months, and 9 months, and 24 months. Decompressed gallbladder cannot be adequately assessed. 2 too small to characterize hepatic hypodensities. Hepatomegaly. 2 splenic wedge-shaped peripheral hypodensity involving the upper lateral spleen, favored to represent infarctions. Pancreatic atrophy. Right colonic wall appears thickened with adjacent inflammatory changes ; correlate clinically for possibility of colitis.
[2017-04-29] MEDS ORDERED: EPOETIN ALFA 10,000 UNIT/ML ML SC SCH (16:15)
--- NOTE | 2017-04-29 18:30 | CP.PCM.PN ---
Subjective - Date & Time of Evaluation Date of Evaluation: 04/29/17 Time of Evaluation: 18:23 - Subjective Subjective: The patient c/o upper abdominal pain after bowel movement, no bleeding or diarrhea. Fair appetite. Currently getting US of abdomen Objective - Vital Signs/Intake and Output Vital Signs (last 24 hours): Temp Pulse Resp BP Pulse Ox 99 F 92 H 20 100/57 L 98 04/29/17 16:00 04/29/17 16:00 04/29/17 16:00 04/29/17 16:00 04/29/17 16:00 Intake and Output: 04/29/17 04/29/17 06:59 18:59 Intake Total 1410 Balance 1410 - Medications Medications: Current Medications Acetaminophen (Tylenol 325mg Tab) 650 mg PO Q6 PRN PRN Reason: Pain, moderate (4-7) Last Admin: 04/22/17 10:32 Dose: 650 mg Amlodipine Besylate (Norvasc) 5 mg PO DAILY [facility] Last Admin: 04/29/17 09:35 Dose: 5 mg Apixaban (Eliquis) 5 mg PO BID [facility] Last Admin: 04/29/17 09:35 Dose: 5 mg Calcium Carbonate (Oscal) 500 mg PO DAILY [facility] Last Admin: 04/29/17 09:35 Dose: 500 mg Epoetin Woody (Procrit) 10,000 unit SC TTS [facility] Stop: 05/03/17 10:01 Last Admin: 04/29/17 16:24 Dose: 10,000 unit Home Med (Patient's Own Medication) 1 tab PO DAILY [facility] Last Admin: 04/29/17 09:37 Dose: 1 tab Hydrocortisone (Cortizone 2.5%) 1 gm TOP BID PRN PRN Reason: for itchiness Last Admin: 04/27/17 10:50 Dose: 1 gm Dextrose/Sodium Chloride (Dextrose 5%/0.45% Ns 1000 Ml) 1,000 mls @ 60 mls/hr IV .[id number] [facility] Last Admin: 04/29/17 09:40 Dose: 60 mls/hr Cefepime HCl 1 gm/ Dextrose 50 mls @ 100 mls/hr IVPB Q12H [facility] Last Admin: 04/29/17 14:16 Dose: 100 mls/hr Methimazole (Tapazole) 5 mg PO DAILY [facility] Last Admin: 04/29/17 09:35 Dose: 5 mg Multivitamins (Hexavitamin) 1 tab PO DAILY [facility] Last Admin: 04/29/17 09:35 Dose: 1 tab Mupirocin (Bactroban Ointment) 0 gm TOP BID [facility] Last Admin: 04/29/17 17:42 Dose: Not Given - Labs Labs: 04/28/17 11:41 04/28/17 11:41 PT 19.5 SECONDS (9.7-12.2) H 04/21/17 19:40 INR 1.7 04/21/17 19:40 APTT 37 SECONDS (21-34) H 04/21/17 19:40 Assessment and Plan (1) Myelodysplasia (myelodysplastic syndrome) Assessment & Plan: 76 yo woman with RAEB, on PO Revlimid, currently getting work up for liver lesions, too small to characterize, possible gall bladder lesion/mass. Malignancy to be ruled out specially in light of hypercoagulable state, P.E and now ?splenic infarctions cancer)(could also be secondary to thrombocytosis which may be a part of her MDS or reactive). Will order tumor markers Status: Acute
--- NOTE | 2017-04-29 19:14 | US ---
EXAM: US Abdomen Complete EXAM DATE/TIME: Exam ordered 04/29/2017 11:16 AM CLINICAL HISTORY: 76 years old, female; Abnormal findings; Abnormal radiologic finding of the abdomen; Radiologic exam and body structure: Abd mri; Additional info: Multiple liver lesions, gb mass on mri TECHNIQUE: Real-time ultrasound of the abdomen (complete) with image documentation. COMPARISON: CT - LIVER PROTOCOL TRIPLE PHASE 2017-04-29 13:32 FINDINGS: Liver: The liver measures 16.4 cm in craniocaudal span. The echotexture of the liver is mildly heterogeneous. A subcapsular cyst is noted within the liver in the right lobe measuring 1.4 cm in greatest diameter. There is normal blood flow direction the main portal vein. Gallbladder: Low level echoes are noted within the fundus of the gallbladder. This is avascular on color Doppler examination No gallstones. Common bile duct: The common bile duct measures 6 mm. No stones. No dilation. Pancreas: The pancreatic head is not well seen. The body and tail are unremarkable. Kidneys: The right kidney measures 9.7 x 4 x 4.1 cm. Left kidney measures 11.7 x 4.3 x 4.1 cm. No stones. No hydronephrosis. Spleen: The spleen measures 12.1 cm in craniocaudal span. Aorta: The distal abdominal aorta is not well seen due to bowel gas. Inferior vena cava: Unremarkable. IMPRESSION: 1. Low level echoes noted within the fundus of the gallbladder. This area is avascular on color Doppler examination. Note is made of the patient's history of a gallbladder mass on MR. Those images are not available at the time this study was reported 2. Liver cysts. No solid liver masses are seen. 3. Liver echotexture is mildly heterogeneous. This may reflect an underlying infiltrative process. Note is made that the patient has liver lesions on previous MR.
[2017-04-30 08:20] VITALS: BP 110/68; PULSE 97; TEMP 98.7; O2SAT 96
[2017-04-30 09:06] LABS: CARCINOEMBRYONIC ANTIGEN 2.2 ng/mL (0-3.0)
[2017-04-30 09:39] LABS: CA 19-9 6.1 U/mL (0-37)
[2017-04-30] MEDS: Multiple Vitamins Tab PO SCH (10:05)
[2017-04-30] MEDS: Dextrose 5%/0.45% NS 1,000 ML IV SCH (10:05)
[2017-04-30] MEDS: methIMAzole 5 MG TAB PO SCH (10:05)
[2017-04-30] MEDS: REVLIMID 5 MG PO SCH (10:05)
--- NOTE | 2017-04-30 12:41 | CP.PCM.PN ---
Subjective - Date & Time of Evaluation Date of Evaluation: 04/30/17 Time of Evaluation: 10:00 - Subjective Subjective: CT/ MRI inconclusive Objective - Vital Signs/Intake and Output Vital Signs (last 24 hours): Temp Pulse Resp BP Pulse Ox 98.7 F 97 H 20 110/68 96 04/30/17 08:19 04/30/17 08:19 04/30/17 08:19 04/30/17 08:19 04/30/17 08:19 Intake and Output: 04/30/17 04/30/17 06:59 18:59 Intake Total 480 Balance 480 - Medications Medications: Current Medications Acetaminophen (Tylenol 325mg Tab) 650 mg PO Q6 PRN PRN Reason: Pain, moderate (4-7) Last Admin: 04/22/17 10:32 Dose: 650 mg Amlodipine Besylate (Norvasc) 5 mg PO DAILY [facility] Last Admin: 04/30/17 10:05 Dose: 5 mg Apixaban (Eliquis) 5 mg PO BID [facility] Last Admin: 04/30/17 10:05 Dose: 5 mg Calcium Carbonate (Oscal) 500 mg PO DAILY [facility] Last Admin: 04/30/17 10:05 Dose: 500 mg Epoetin Woody (Procrit) 10,000 unit SC TTS [facility] Stop: 05/03/17 10:01 Last Admin: 04/29/17 16:24 Dose: 10,000 unit Home Med (Patient's Own Medication) 1 tab PO DAILY [facility] Last Admin: 04/30/17 10:05 Dose: 1 tab Hydrocortisone (Cortizone 2.5%) 1 gm TOP BID PRN PRN Reason: for itchiness Last Admin: 04/27/17 10:50 Dose: 1 gm Cefepime HCl 1 gm/ Dextrose 50 mls @ 100 mls/hr IVPB Q12H [facility] Last Admin: 04/30/17 02:09 Dose: 100 mls/hr Methimazole (Tapazole) 5 mg PO DAILY [facility] Last Admin: 04/30/17 10:05 Dose: 5 mg Multivitamins (Hexavitamin) 1 tab PO DAILY [facility] Last Admin: 04/30/17 10:05 Dose: 1 tab Mupirocin (Bactroban Ointment) 0 gm TOP BID [facility] Last Admin: 04/30/17 10:06 Dose: Not Given - Labs Labs: 04/28/17 11:41 04/28/17 11:41 PT 19.5 SECONDS (9.7-12.2) H 04/21/17 19:40 INR 1.7 04/21/17 19:40 APTT 37 SECONDS (21-34) H 04/21/17 19:40 - Constitutional Appears: Non-toxic - Head Exam Head Exam: NORMOCEPHALIC - Eye Exam Eye Exam: PERRL - ENT Exam ENT Exam: Mucous Membranes Dry - Neck Exam Neck Exam: absent: Lymphadenopathy - Respiratory Exam Respiratory Exam: Decreased Breath Sounds - Cardiovascular Exam Cardiovascular Exam: REGULAR RHYTHM - GI/Abdominal Exam GI & Abdominal Exam: Distended - Rectal Exam Rectal Exam: Deferred Assessment and Plan (1) Dehydration Status: Acute (2) Lower respiratory infection Status: Acute (3) Myelodysplasia (myelodysplastic syndrome) Status: Acute (4) Pneumonia Status: Acute (5) Symptomatic anemia Status: Acute
--- NOTE | 2017-04-30 15:21 | CP.PCM.PN ---
Subjective - Date & Time of Evaluation Date of Evaluation: 04/30/17 Time of Evaluation: 11:00 - Subjective Subjective: Awake, alert, no acute distress. Objective - Vital Signs/Intake and Output Vital Signs (last 24 hours): Temp Pulse Resp BP Pulse Ox 98.7 F 97 H 20 110/68 96 04/30/17 08:19 04/30/17 08:19 04/30/17 08:19 04/30/17 08:19 04/30/17 08:19 Intake and Output: 04/30/17 04/30/17 06:59 18:59 Intake Total 480 1000 Balance 480 1000 - Medications Medications: Current Medications Acetaminophen (Tylenol 325mg Tab) 650 mg PO Q6 PRN PRN Reason: Pain, moderate (4-7) Last Admin: 04/22/17 10:32 Dose: 650 mg Amlodipine Besylate (Norvasc) 5 mg PO DAILY [facility] Last Admin: 04/30/17 10:05 Dose: 5 mg Apixaban (Eliquis) 5 mg PO BID [facility] Last Admin: 04/30/17 10:05 Dose: 5 mg Calcium Carbonate (Oscal) 500 mg PO DAILY [facility] Last Admin: 04/30/17 10:05 Dose: 500 mg Epoetin Woody (Procrit) 10,000 unit SC TTS [facility] Stop: 05/03/17 10:01 Last Admin: 04/29/17 16:24 Dose: 10,000 unit Home Med (Patient's Own Medication) 1 tab PO DAILY [facility] Last Admin: 04/30/17 10:05 Dose: 1 tab Hydrocortisone (Cortizone 2.5%) 1 gm TOP BID PRN PRN Reason: for itchiness Last Admin: 04/27/17 10:50 Dose: 1 gm Cefepime HCl 1 gm/ Dextrose 50 mls @ 100 mls/hr IVPB Q12H [facility] Last Admin: 04/30/17 14:06 Dose: 100 mls/hr Methimazole (Tapazole) 5 mg PO DAILY [facility] Last Admin: 04/30/17 10:05 Dose: 5 mg Multivitamins (Hexavitamin) 1 tab PO DAILY [facility] Last Admin: 04/30/17 10:05 Dose: 1 tab Mupirocin (Bactroban Ointment) 0 gm TOP BID [facility] Last Admin: 04/30/17 10:06 Dose: Not Given - Labs Labs: 04/28/17 11:41 04/28/17 11:41 PT 19.5 SECONDS (9.7-12.2) H 04/21/17 19:40 INR 1.7 04/21/17 19:40 APTT 37 SECONDS (21-34) H 04/21/17 19:40 Assessment and Plan - Assessment and Plan (Free Text) Assessment: Patient is seen and examined. Alert, awake, tolerating diet, no vomiting or abdominal pain noted. Discussed with DR Hernandez, reviewed the test results, may need more work up as outpatient to rule out cancer. Advised to follow up with PMD and GI in 1 week. Daughter at the bedside, verbalized understanding.
--- NOTE | 2017-04-30 15:25 | CP.PCM.PN ---
Subjective - Date & Time of Evaluation Date of Evaluation: 04/30/17 Time of Evaluation: 15:19 - Subjective Subjective: Patient had three loose bowel movements today, after eating. She denies having nausea, vomiting, abdominal pain. Objective - Vital Signs/Intake and Output Vital Signs (last 24 hours): Temp Pulse Resp BP Pulse Ox 98.7 F 97 H 20 110/68 96 04/30/17 08:19 04/30/17 08:19 04/30/17 08:19 04/30/17 08:19 04/30/17 08:19 Intake and Output: 04/30/17 04/30/17 06:59 18:59 Intake Total 480 1000 Balance 480 1000 - Medications Medications: Current Medications Acetaminophen (Tylenol 325mg Tab) 650 mg PO Q6 PRN PRN Reason: Pain, moderate (4-7) Last Admin: 04/22/17 10:32 Dose: 650 mg Amlodipine Besylate (Norvasc) 5 mg PO DAILY [facility] Last Admin: 04/30/17 10:05 Dose: 5 mg Apixaban (Eliquis) 5 mg PO BID [facility] Last Admin: 04/30/17 10:05 Dose: 5 mg Calcium Carbonate (Oscal) 500 mg PO DAILY [facility] Last Admin: 04/30/17 10:05 Dose: 500 mg Epoetin Woody (Procrit) 10,000 unit SC TTS [facility] Stop: 05/03/17 10:01 Last Admin: 04/29/17 16:24 Dose: 10,000 unit Home Med (Patient's Own Medication) 1 tab PO DAILY [facility] Last Admin: 04/30/17 10:05 Dose: 1 tab Hydrocortisone (Cortizone 2.5%) 1 gm TOP BID PRN PRN Reason: for itchiness Last Admin: 04/27/17 10:50 Dose: 1 gm Cefepime HCl 1 gm/ Dextrose 50 mls @ 100 mls/hr IVPB Q12H [facility] Last Admin: 04/30/17 14:06 Dose: 100 mls/hr Methimazole (Tapazole) 5 mg PO DAILY [facility] Last Admin: 04/30/17 10:05 Dose: 5 mg Multivitamins (Hexavitamin) 1 tab PO DAILY [facility] Last Admin: 04/30/17 10:05 Dose: 1 tab Mupirocin (Bactroban Ointment) 0 gm TOP BID [facility] Last Admin: 04/30/17 10:06 Dose: Not Given - Labs Labs: 04/28/17 11:41 04/28/17 11:41 PT 19.5 SECONDS (9.7-12.2) H 04/21/17 19:40 INR 1.7 04/21/17 19:40 APTT 37 SECONDS (21-34) H 04/21/17 19:40 - Head Exam Head Exam: ATRAUMATIC, NORMOCEPHALIC - Eye Exam Eye Exam: EOMI - Neck Exam Neck Exam: absent: Lymphadenopathy, Thyromegaly - Cardiovascular Exam Cardiovascular Exam: REGULAR RHYTHM, +S1, +S2. absent: Gallop, Rubs, Murmur - GI/Abdominal Exam GI & Abdominal Exam: Soft, Normal Bowel Sounds. absent: Tenderness, Mass, Organomegaly - Rectal Exam Rectal Exam: Deferred - Extremities Exam Extremities Exam: absent: Calf Tenderness, Pedal Edema Assessment and Plan (1) Abnormal CT of liver Assessment & Plan: [facility] scan of [facility] liver showed two small hypodense lesions, decompressed GB, two wedge shaped hypodense lesions in the spleen consistent with infarctions, 8 mm LLL pulmonary nodule. Sonogram showed liver cysts, no solid liver masses, low level echoes within the fundus of the gallbladder. The findings on these studies do not correspond to the findings on MRI. We will therefore repeat the MRI in four to six weeks. Status: Acute
--- NOTE | 2017-05-02 13:49 | CP.PCM.DIS ---
Provider - Provider Date of Admission: 04/21/17 22:32 Attending physician: Bong Hernandez MD Primary care physician: ZACH Consults: WAYNE COLE Time Spent in preparation of Discharge (in minutes): 45 Diagnosis - Discharge Diagnosis (1) Dehydration Status: Acute (2) Lower respiratory infection Status: Acute (3) Myelodysplasia (myelodysplastic syndrome) Status: Acute (4) Pneumonia Status: Acute (5) Symptomatic anemia Status: Acute Hospital Course - Lab Results Lab Results: Micro Results 04/23/17 05:30 Blood-Venous Blood Culture - Final NO GROWTH AFTER 5 DAYS 04/23/17 05:30 Blood-Venous Gram Stain - Final TEST NOT PERFORMED 04/23/17 07:07 Blood-Venous Blood Culture - Final NO GROWTH AFTER 5 DAYS 04/23/17 07:07 Blood-Venous Gram Stain - Final TEST NOT PERFORMED 04/22/17 19:25 Blood Blood Culture - Final NO GROWTH AFTER 5 DAYS 04/22/17 19:25 Blood Gram Stain - Final TEST NOT PERFORMED 04/22/17 18:55 Blood Blood Culture - Final NO GROWTH AFTER 5 DAYS 04/22/17 18:55 Blood Gram Stain - Final TEST NOT PERFORMED 04/23/17 06:12 Sputum Gram Stain - Final 04/23/17 06:12 Sputum Sputum Culture - Final NORMAL ORAL ASHLEY 04/23/17 04:50 Urine,Clean Catch Urine Culture - Final No Growth (<1,000 CFU/ML) 04/22/17 08:00 Sputum Gram Stain - Final 04/22/17 08:00 Sputum Sputum Culture - Final NORMAL ORAL ASHLEY 04/21/17 20:18 Urine,Clean Catch Urine Culture - Final Gram Negative Karl Most Recent Lab Values WBC 5.0 K/uL (4.8-10.8) 04/28/17 11:41 RBC 3.49 Mil/uL (3.80-5.20) L 04/28/17 11:41 Hgb 9.3 g/dL (11.0-16.0) L 04/28/17 11:41 Hct 28.2 % (34.0-47.0) L 04/28/17 11:41 MCV 80.6 fL (81.0-99.0) L 04/28/17 11:41 MCH 26.6 pg (27.0-31.0) L 04/28/17 11:41 MCHC 33.1 g/dL (33.0-37.0) 04/28/17 11:41 RDW 24.7 % (11.5-14.5) H 04/28/17 11:41 Plt Count 420 K/uL (130-400) H D 04/28/17 11:41 MPV 10.4 fL (7.2-11.7) 04/28/17 11:41 Neut % (Auto) 41.8 % (50.0-75.0) L 04/28/17 11:41 Lymph % (Auto) 49.0 % (20.0-40.0) H 04/28/17 11:41 [place] % (Auto) 0.2 % (0.0-10.0) 04/28/17 11:41 Eos % (Auto) 8.9 % (0.0-4.0) H 04/28/17 11:41 Baso % (Auto) 0.1 % (0.0-2.0) 04/28/17 11:41 Neut # 2.1 K/uL (1.8-7.0) 04/28/17 11:41 Lymph # 2.5 K/uL (1.0-4.3) 04/28/17 11:41 [place]onald # 0.0 K/uL (0.0-0.8) 04/28/17 11:41 Eos # 0.4 K/uL (0.0-0.7) 04/28/17 11:41 Baso # 0.0 K/uL (0.0-0.2) 04/28/17 11:41 Neutrophils % (Manual) 46 % (50-75) L 04/28/17 11:41 Band Neutrophils % 6 % (0-2) H 04/28/17 11:41 Lymphocytes % (Manual) 23 % (20-40) 04/28/17 11:41 Reactive Lymphs % 6 % (0-0) H 04/28/17 11:41 Monocytes % (Manual) 2 % (0-10) 04/28/17 11:41 Eosinophils % (Manual) 16 % (0-4) H 04/28/17 11:41 Basophils % (Manual) 1 % (0-2) 04/28/17 11:41 Myelocytes % 2 % (0-0) H 04/24/17 07:29 Nucleated RBC % 1 % (0-0) H 04/24/17 07:29 Differential Comment 04/21/17 19:40 Platelet Estimate Slightly increased (NORMAL) H 04/28/17 11:41 Large Platelets Present 04/28/17 11:41 Giant Platelets Present 04/25/17 07:44 Hypochromasia (manual) Slight 04/28/17 11:41 Poikilocytosis (manual Moderate 04/28/17 11:41 Anisocytosis (manual) Moderate 04/28/17 11:41 Target Cells Slight 04/28/17 11:41 Ovalocytes Slight 04/28/17 11:41 Eli Cells Slight 04/24/17 07:29 Schistocytes Slight 04/28/17 11:41 ESR 30 mm/hr (0-20) H 04/24/17 07:29 PT 19.5 SECONDS (9.7-12.2) H 04/21/17 19:40 INR 1.7 04/21/17 19:40 APTT 37 SECONDS (21-34) H 04/21/17 19:40 pO2 43 mm/Hg (30-55) 04/21/17 07:35 VBG pH 7.45 (7.32-7.43) H 04/21/17 07:35 VBG pCO2 32 mmHg (40-60) L 04/21/17 07:35 VBG HCO3 23.7 mmol/L 04/21/17 07:35 VBG Total CO2 23.2 mmol/L (22-28) 04/21/17 07:35 VBG O2 Sat (Calc) 83.2 % (40-65) H 04/21/17 07:35 VBG Base Excess -1.0 mmol/L (0.0-2.0) L 04/21/17 07:35 VBG Potassium 3.2 mmol/L (3.6-5.2) L 04/21/17 07:35 Sodium 131.0 mmol/l (132-148) L 04/21/17 07:35 Chloride 101.0 mmol/L (98-107) 04/21/17 07:35 Glucose 117 mg/dl (65-105) H 04/21/17 07:35 Lactate 1.0 mmol/L (0.7-2.1) 04/21/17 07:35 Sodium 131 mmol/L (132-148) L 04/28/17 11:41 Potassium 4.3 mmol/L (3.6-5.2) 04/28/17 11:41 Chloride 96 mmol/L (98-107) L 04/28/17 11:41 Carbon Dioxide 32 mmol/L (22-30) H 04/28/17 11:41 Anion Gap 8 (10-20) L 04/28/17 11:41 BUN 7 mg/dL (7-17) 04/28/17 11:41 Creatinine 0.6 mg/dL (0.7-1.2) L 04/28/17 11:41 Est GFR ( Amer) > 60 04/28/17 11:41 Est GFR (Non-Af Amer) > 60 04/28/17 11:41 Random Glucose 93 mg/dL (65-105) 04/28/17 11:41 Lactic Acid 2.0 mmol/L (0.7-2.1) 04/24/17 13:33 Calcium 7.9 mg/dl (8.6-10.4) L 04/28/17 11:41 Total Bilirubin 0.7 mg/dL (0.2-1.3) 04/28/17 11:41 AST 35 U/L (14-36) 04/28/17 11:41 ALT 39 U/L (9-52) 04/28/17 11:41 Alkaline Phosphatase 72 U/L (38-126) 04/28/17 11:41 Lactate Dehydrogenase 270 U/L (313-618) L 04/24/17 07:29 Total Creatine Kinase 20 U/L (30-135) L 04/21/17 19:40 CK-MB (Mass) 0.30 ng/mL (0.0-3.38) 04/21/17 19:40 Troponin I 0.0290 ng/mL (0.00-0.120) 04/21/17 19:40 Total Protein 6.7 g/dL (6.3-8.3) 04/28/17 11:41 Albumin 3.3 g/dL (3.5-5.0) L 04/28/17 11:41 Globulin 3.4 gm/dL (2.2-3.9) 04/28/17 11:41 Albumin/Globulin Ratio 1.0 (1.0-2.1) 04/28/17 11:41 Carcinoembryonic Ag 2.2 ng/mL (0-3.0) 04/30/17 08:17 CA 19-9 Antigen 6.1 U/mL (0-37) 04/30/17 08:17 Procalcitonin 0.17 NG/ML (0.19-0.49) L 04/22/17 19:30 Venous Blood Potassium 3.2 mmol/L (3.6-5.2) L 04/21/17 07:35 Urine Color Yellow (YELLOW) 04/21/17 20:18 Urine Clarity Hazy (Clear) 04/21/17 20:18 Urine pH 5.0 (5.0-8.0) 04/21/17 20:18 Ur Specific [place] 1.016 (1.003-1.030) 04/21/17 20:18 Urine Protein 1+ mg/dL (NEGATIVE) H 04/21/17 20:18 Urine Glucose (UA) Normal mg/dL (Normal) 04/21/17 20:18 Urine Ketones Negative mg/dL (NEGATIVE) 04/21/17 20:18 Urine Blood Negative (NEGATIVE) 04/21/17 20:18 Urine Nitrate Negative (NEGATIVE) 04/21/17 20:18 Urine Bilirubin Negative (NEGATIVE) 04/21/17 20:18 Urine Urobilinogen Normal mg/dL (0.2-1.0) 04/21/17 20:18 Ur Leukocyte Esterase Neg [place]/uL (Negative) 04/21/17 20:18 Urine WBC (Auto) 4 /hpf (0-5) 04/21/17 20:18 Urine RBC (Auto) 1 /hpf (0-3) 04/21/17 20:18 Ur Squamous Epith Cells 4 /hpf (0-5) 04/21/17 20:18 Blood Type O POSITIVE 04/21/17 22:32 Antibody Screen Negative 04/21/17 22:32 - Hospital Course Hospital Course: ADMITTED WITH SEVERE URI SYMPTOMS AND TREATED FOR BRONCHOPNEUMOINIA WELL CHF FOUND TO HAVE ? MASS IN LIVER GI WORK UP INCONCLUSIVE MAY HAVE EXTRAMEDULLARY HEMATOPOIESIS FROM LIVER ? VS OCCULT MALIGNANCY REQUIRED SEVERAL BLOOD PRODUCTS PER DR VÁSQUEZ DUE TO SEVERE MDS Discharge Exam - Head Exam Head Exam: ATRAUMATIC, NORMOCEPHALIC - Eye Exam Eye Exam: EOMI, PERRL - ENT Exam ENT Exam: Mucous Membranes Dry - Respiratory Exam Respiratory Exam: Decreased Breath Sounds, Prolonged Expiratory Phase, Rhonchi - Cardiovascular Exam Cardiovascular Exam: REGULAR RHYTHM, +S1, +S2 - GI/Abdominal Exam GI & Abdominal Exam: Diminished Bowel Sounds, Soft. absent: Tenderness - Rectal Exam Rectal Exam: Deferred - Exam Exam: NORMAL INSPECTION - Extremities Exam Extremities exam: pedal edema, pedal pulses present - Back Exam Back exam: absent: CVA tenderness (L), CVA tenderness (R) - Neurological Exam Neurological exam: Alert, CN II-XII Intact, Oriented x3, Reflexes Normal - Psychiatric Exam Psychiatric exam: Depressed - Skin Skin Exam: Dry, Intact Discharge Plan - Follow Up Plan Condition: GOOD Disposition: HOME/ ROUTINE Instructions: Dehydration (DC), Anemia (DC), Pneumonia (DC) Referrals: Lina Sosa MD [Staff Provider] - Bong Hernandez MD [Staff Provider] - Tomas Thurman MD [Staff Provider] -
== END 2017-04-30 16:30 | disposition home or self-care (01) | DRG 811 ==
LOC: C.ER 17:48 → C.9E 22:32 → C.3T 23:35
PROVIDERS: ADMIT Internal Medicine; ATTEND Internal Medicine
PROC: 30233N1 Transfusion of Nonautologous Red Blood Cells into Peripheral Vein, Percutaneous Approach (ICD-10-PCS; principal; 2017-04-22)
DX: D46.20 Refractory anemia with excess of blasts, unspecified (principal); J18.9 Pneumonia, unspecified organism; D68.59 Other primary thrombophilia; L03.116 Cellulitis of left lower limb; E86.0 Dehydration; E87.1 Hypo-osmolality and hyponatremia; E05.90 Thyrotoxicosis, unspecified without thyrotoxic crisis or storm; E03.9 Hypothyroidism, unspecified; J20.9 Acute bronchitis, unspecified; E78.00 Pure hypercholesterolemia, unspecified; I10 Essential (primary) hypertension; J98.8 Other specified respiratory disorders; Z87.891 Personal history of nicotine dependence; Z86.711 Personal history of pulmonary embolism; K76.9 Liver disease, unspecified

== ENCOUNTER 2017-05-14 15:10 | Inpatient (IN) | payer MEDICARE, OTHER ==
[2017-05-14] MEDS ORDERED: Sodium Chloride 0.9% 1,000 ML IV ONE ×2 (17:37→18:52)
--- NOTE | 2017-05-14 17:44 | C.PDOC ---
History Of Present Illness 76 y/o female presents to ED with complaints of soft diarrhea for 2 weeks, decreased appetite, abdominal pain and 101 fever today. As per daughter who is at bedside translating for patient took Tylenol for fever and describes abdominal pain more on LUQ but radiates diffusely through abdomen. Patient reports 6x of soft stool for past 2 weeks and watery yellow brown color stool for 2 days. Patient had recent blood work with Hemoglobin of 7.9 and was advised to come to ED for further evaluation. Patient admits to recent antibiotic use on 04/30 and denies blood in stool, nausea, vomiting or any other complaints at this time. Time Seen by Provider: 05/14/17 17:03 Chief Complaint (Nursing): GI Problem History Per: Patient History/Exam Limitations: no limitations Onset/Duration Of Symptoms: Days Current Symptoms Are (Timing): Still Present Location Of Pain/Discomfort: Diffuse, LUQ Past Medical History Reviewed: Historical Data, Nursing Documentation, Vital Signs Vital Signs: Last Vital Signs Temp 98 F 05/14/17 20:01 Pulse 110 H 05/14/17 20:01 Resp 12 05/14/17 20:01 BP 100/47 L 05/14/17 20:01 Pulse Ox 99 05/14/17 20:23 - Medical History PMH: Gastritis, HTN, Hypercholesterolemia, Hyperthyroidism, Hypothyroidism Other PMH: Myelodysplastic syndrome Surgical History: No Surg Hx - [facility] Procedures TRANSFUSE NONAUT RED BLOOD CELLS IN PERIPH VEIN, PERC (04/21/17) Family History: States: No Known Family Hx - Social History Hx Alcohol Use: No Hx Substance Use: No - Immunization History Hx Tetanus Toxoid Vaccination: No Hx Influenza Vaccination: No Hx Pneumococcal Vaccination: No Review Of Systems Constitutional: Positive for: Fever Gastrointestinal: Positive for: Abdominal Pain, Diarrhea. Negative for: Nausea , Vomiting Musculoskeletal: Negative for: Back Pain Skin: Negative for: Rash Physical Exam - Physical Exam Appears: Non-toxic, No Acute Distress Skin: Normal Color, Warm, Dry, No Rash Head: Atraumatic, Normacephalic Oral Mucosa: Moist Neck: Normal ROM, Supple Cardiovascular: Rhythm Regular, Other (Tachycardic) Respiratory: Normal Breath Sounds, No Rales, No Rhonchi, No Wheezing Gastrointestinal/Abdominal: Soft, No Tenderness, No Guarding, No Rebound, Other (Abdominal pain ) Back: No CVA Tenderness Neurological/Psych: Oriented x3 ED Course And Treatment - Laboratory Results Result Diagrams: 05/14/17 17:58 05/14/17 17:58 Lab Interpretation: Abnormal (Na+116, Cl-89, C diff positive, Hgb 8.5) O2 Sat by Pulse Oximetry: 99 (RA) Pulse Ox Interpretation: Normal - Physician Consult Information Time Consulting Physician Contacted: 19:54 Physician Contacted: Bong Hernandez Outcome Of Conversation: Patient to be started on PO Vanco and IV flagyl. he is requesting ICU evaluation. Patient will be admitted to Dr Marie service. Aniyah Cornejo to evaluate for ICU admission. Disposition - Disposition Disposition: HOSPITALIZED Disposition Time: 20:21 Condition: IMPROVED - POA Present On Arrival: None - Clinical Impression Clinical Impression: C. difficile colitis, Hyponatremia, Hypotension - Scribe Statement The provider has reviewed the documentation as recorded by the Scribnaya Weiss All medical record entries made by the Gautamibnaya were at my direction and personally dictated by me. I have reviewed the chart and agree that the record accurately reflects my personal performance of the history, physical exam, medical decision making, and the department course for this patient. I have also personally directed, reviewed, and agree with the discharge instructions and disposition.
[2017-05-14 18:37] LABS: SQUAMOUS EPITHIAL 3 /hpf (0-5); URINE BACTERIA RARE (<OCC); URINE BILIRUBIN NEGATIVE (NEGATIVE); URINE BLOOD NEGATIVE (NEGATIVE); URINE CLARITY Clear (Clear); URINE COLOR Amber (YELLOW); URINE GLUCOSE (UA) NORMAL (Normal); URINE LEUKOCYTE ESTERASE NEG Leu/uL (Negative); URINE NITRATE NEGATIVE (NEGATIVE); URINE PROTEIN 1+ mg/dL (NEGATIVE); URINE UROBILINOGEN NORMAL mg/dL (0.2-1.0)
[2017-05-14 18:40] LABS: ALB/GLOB RATIO 0.7 (1.0-2.1); ALBUMIN 2.6 g/dL (3.5-5.0); ALT/SGPT 23 U/L (9-52); AST/SGOT 41 U/L (14-36); BLOOD UREA NITROGEN 11 mg/dL (7-17); GFR AFRICAN-AMERICAN > 60; GFR NON-AFRICAN AMERICAN > 60; LIPASE < 10 U/L (23-300)
[2017-05-14 18:50] LABS: EOS # 0.4 K/uL (0.0-0.7); EOS % 4.8 % (0.0-4.0); HEMOGLOBIN 8.5 g/dL (11.0-16.0); LYMPH # 0.1 K/uL (1.0-4.3); LYMPH % 0.7 % (20.0-40.0); MEAN CORPUSCULAR HEMOGLOBIN 25.4 pg (27.0-31.0); MEAN CORPUSCULAR HGB CONC 32.4 g/dL (33.0-37.0); MEAN PLATELET VOLUME 9.8 fL (7.2-11.7); MONO # 0.3 K/uL (0.0-0.8); NEUT % 91.5 % (50.0-75.0); NRBC % 0.4 % (0.0-2.0); RBC 3.34 Mil/uL (3.80-5.20); RED CELL DISTRIBUTION WIDTH 28.6 % (11.5-14.5)
[2017-05-14 18:51] LABS: MEAN CELL VOLUME 78.4 fL (81.0-99.0); PLATELET COUNT 586 K/uL (130-400); WHITE BLOOD COUNT 8.7 K/uL (4.8-10.8)
[2017-05-14 19:20] LABS: ANISOCYTOSIS MARKED; BANDS 13 % (0-2); EOSINOPHIL 9 % (0-4); LYMPHOCYTE 31 % (20-40); MONOCYTE 3 % (0-10); NEUTROPHIL 36 % (50-75); PLATELET ESTIMATE INCREASED (NORMAL); REACTIVE LYMPHOCYTES 8 % (0-0); TOTAL CELLS COUNTED 100
[2017-05-14 19:21] LABS: POIKILOCYTOSIS MODERATE
[2017-05-14 19:22] LABS: HYPOCHROMIC MODERATE; MICROCYTOSIS SLIGHT
[2017-05-14 19:23] LABS: POLYCHROMIC SLIGHT; TARGET CELLS SLIGHT
[2017-05-14 19:24] LABS: BURR CELLS SLIGHT; GIANT PLATELETS PRESENT; OVALOCYTES SLIGHT; SCHISTOCYTES SLIGHT; TEARDROP CELLS SLIGHT
[2017-05-14] MEDS ORDERED: metroNIDAZOLE IV 500 mg/100 ml 500 MG/100 ML BAG IV SCH (20:00)
[2017-05-14] MEDS ORDERED: Vancomycin 125 MG/5 ML SOLN (ORAL/RECTAL) PO ONE (20:15)
[2017-05-14] MEDS ORDERED: Iohexol 240 (50 ml) ONE (22:25)
[2017-05-14 22:49] LABS: EOS # 0.3 K/uL (0.0-0.7); EOS % 5.2 % (0.0-4.0); HEMOGLOBIN 7.6 g/dL (11.0-16.0); LYMPH # 1.6 K/uL (1.0-4.3); LYMPH % 24.4 % (20.0-40.0); MEAN CELL VOLUME 78.8 fL (81.0-99.0); MEAN CORPUSCULAR HEMOGLOBIN 26.1 pg (27.0-31.0); MEAN CORPUSCULAR HGB CONC 33.2 g/dL (33.0-37.0); MEAN PLATELET VOLUME 9.7 fL (7.2-11.7); MONO # 0.1 K/uL (0.0-0.8); MONO % 0.9 % (0.0-10.0); NEUT # 4.6 K/uL (1.8-7.0); NEUT % 69.5 % (50.0-75.0); NRBC % 0.2 % (0.0-2.0); RBC 2.92 Mil/uL (3.80-5.20); WHITE BLOOD COUNT 6.7 K/uL (4.8-10.8)
[2017-05-14] MEDS ORDERED: Iohexol 240 (50 ml) PO ONE (22:56)
[2017-05-14 23:05] LABS: ALB/GLOB RATIO 0.7 (1.0-2.1); ALBUMIN 2.1 g/dL (3.5-5.0); ALT/SGPT 31 U/L (9-52); AST/SGOT 18 U/L (14-36); BLOOD UREA NITROGEN 9 mg/dL (7-17); CALCIUM 6.7 mg/dl (8.6-10.4); GFR AFRICAN-AMERICAN > 60; GFR NON-AFRICAN AMERICAN > 60; MAGNESIUM 1.9 mg/dL (1.6-2.3)
--- NOTE | 2017-05-14 23:24 | CP.PCM.CON ---
History of Present Illness - History of Present Illness History of Present Illness: 76 F with h/o PE on eliquis, MDS, chronic refractory anemia, thrombocytosis, on revlimid po, h/o hyperthyroidism on methimazole came to the hospital with c/o diarrhea for about 2 wks, worsened 2 days, fever at home, diffuse abd pain, patient initially went to Dr Hughes off who sent her the ER. She was found to have Cdiff antigen +, hyponatremia of 116, clinically dry. Patient at the time of exam was awake, oriented, non toxic, c/o urge to have bm but not in acute distress, denied nausea vomiting. PMH as above Meds Reviewed Allergies NKDA Family history not contributory Social history denies smoking, alcohol, illicit drugs Review of Systems - Review of Systems All systems: reviewed and no additional remarkable complaints except (HPI) Past Patient History - Infectious Disease Hx of Infectious Diseases: None - Past Medical History & Family History Past Medical History?: Yes - Past Social History Smoking Status: Former Smoker Alcohol: None Drugs: Denies Home Situation {Lives}: With Family - CARDIAC Hx Hypercholesterolemia: Yes Hx Hypertension: Yes - PULMONARY Hx Respiratory Disorders: No - NEUROLOGICAL Hx Neurological Disorder: No - HEENT Hx HEENT Problems: No - RENAL Hx Chronic Kidney Disease: No - ENDOCRINE/METABOLIC Hx Hyperthyroidism: Yes Hx Hypothyroidism: Yes - HEMATOLOGICAL/ONCOLOGICAL Hx Blood Disorders: Yes Other/Comment: MDS- MYELODYSPLASTIC SYNDROME - INTEGUMENTARY Hx Dermatological Problems: No - MUSCULOSKELETAL/RHEUMATOLOGICAL Hx Musculoskeletal Disorders: Yes Hx Falls: Yes - GASTROINTESTINAL Hx Gastritis: Yes - GENITOURINARY/GYNECOLOGICAL Hx Genitourinary Disorders: No - PSYCHIATRIC Hx Substance Use: No - SURGICAL HISTORY Hx Surgeries: No - ANESTHESIA Hx Anesthesia: No Meds Allergies/Adverse Reactions: Allergies Allergy/AdvReac Type Severity Reaction Status Date / Time No Known Allergies Allergy Verified 05/14/17 16:14 - Medications Medications: Current Medications Metronidazole (Flagyl) 500 mg in 100 mls @ 100 mls/hr IV STAT VARINDER Physical Exam - Additional Findings Additional findings: * HEENT PRLA * Neck Supple * Chest Clear, no wheezes * CVS Regular, no gallop or rub * PA mild distension, non tender, bs increased * Ext 1+ pitting edema despite wrinkles suggesting increased edema prior * CLOD PULLER awake oriented x3 no fnd. * Skin reduced turgor. Results - Vital Signs Recent Vital Signs: Last Vital Signs Temp 98 F 05/14/17 20:01 Pulse 110 H 05/14/17 20:01 Resp 12 05/14/17 20:01 BP 100/47 L 05/14/17 20:01 Pulse Ox 99 05/14/17 20:41 - Labs Result Diagrams: 05/14/17 22:37 05/14/17 22:37 Labs: Laboratory Results - last 24 hr 05/14/17 05/14/17 05/14/17 17:58 17:58 18:30 WBC 8.7 D RBC 3.34 L Hgb 8.5 L Hct 26.2 L MCV 78.4 L D MCH 25.4 L MCHC 32.4 L RDW 28.6 H Plt Count 586 H D MPV 9.8 Neut % (Auto) 91.5 H Lymph % (Auto) 0.7 L [place] % (Auto) 3.0 Eos % (Auto) 4.8 H Baso % (Auto) 0.0 Neut # 8.0 H Lymph # 0.1 L [place] # 0.3 Eos # 0.4 Baso # 0.0 Neutrophils % (Manual) 36 L Band Neutrophils % 13 H* Lymphocytes % (Manual) 31 Reactive Lymphs % 8 H Monocytes % (Manual) 3 Eosinophils % (Manual) 9 H Platelet Estimate Increased H Giant Platelets Present Polychromasia Slight Hypochromasia (manual) Moderate Poikilocytosis (manual Moderate Anisocytosis (manual) Marked Microcytosis (manual) Slight Macrocytosis (manual) Slight Target Cells Slight Tear Drop Cells Slight Ovalocytes Slight Eli Cells Slight Schistocytes Slight Sodium 116 L* Potassium 4.8 Chloride 89 L Carbon Dioxide 24 Anion Gap 8 L BUN 11 Creatinine 0.6 L Est GFR ( Amer) > 60 Est GFR (Non-Af Amer) > 60 Random Glucose 106 H Calcium 7.0 L Phosphorus Magnesium Total Bilirubin 1.1 AST 41 H ALT 23 Alkaline Phosphatase 47 Total Protein 6.5 Albumin 2.6 L D Globulin 3.9 Albumin/Globulin Ratio 0.7 L Lipase < 10 L Urine Color Jayda Urine Clarity Clear Urine pH 5.0 Ur Specific [place] 1.026 Urine Protein 1+ H Urine Glucose (UA) Normal Urine Ketones Negative Urine Blood Negative Urine Nitrate Negative Urine Bilirubin Negative Urine Urobilinogen Normal Ur Leukocyte Esterase Neg Urine WBC (Auto) 2 Urine RBC (Auto) < 1 Ur Squamous Epith Cells 3 Urine Bacteria Rare C. difficile Ag & Toxin 05/14/17 05/14/17 05/14/17 18:30 22:37 22:37 WBC 6.7 RBC 2.92 L Hgb 7.6 L Hct 23.0 L MCV 78.8 L MCH 26.1 L MCHC 33.2 RDW 27.0 H Plt Count 656 H MPV 9.7 Neut % (Auto) 69.5 Lymph % (Auto) 24.4 [place] % (Auto) 0.9 Eos % (Auto) 5.2 H Baso % (Auto) 0.0 Neut # 4.6 Lymph # 1.6 [place] # 0.1 Eos # 0.3 Baso # 0.0 Neutrophils % (Manual) Band Neutrophils % Lymphocytes % (Manual) Reactive Lymphs % Monocytes % (Manual) Eosinophils % (Manual) Platelet Estimate Giant Platelets Polychromasia Hypochromasia (manual) Poikilocytosis (manual Anisocytosis (manual) Microcytosis (manual) Macrocytosis (manual) Target Cells Tear Drop Cells Ovalocytes Eli Cells Schistocytes Sodium 120 L* Potassium 4.0 Chloride 93 L Carbon Dioxide 24 Anion Gap 7 L BUN 9 Creatinine 0.6 L Est GFR ( Amer) > 60 Est GFR (Non-Af Amer) > 60 Random Glucose 108 H Calcium 6.7 L Phosphorus 3.4 Magnesium 1.9 Total Bilirubin 0.5 AST 18 ALT 31 Alkaline Phosphatase 52 Total Protein 5.1 L Albumin 2.1 L Globulin 3.0 Albumin/Globulin Ratio 0.7 L Lipase Urine Color Urine Clarity Urine pH Ur Specific [place] Urine Protein Urine Glucose (UA) Urine Ketones Urine Blood Urine Nitrate Urine Bilirubin Urine Urobilinogen Ur Leukocyte Esterase Urine WBC (Auto) Urine RBC (Auto) Ur Squamous Epith Cells Urine Bacteria C. difficile Ag & Toxin Positive H Assessment & Plan - Assessment and Plan (Free Text) Assessment: * Cdiff colitis * Hyponatremia due to fluid/solute loss in diarrhea * MDS with anemia, erythroblast, on revilimid * H/o hyperthyroid, on methimazole, d/w Dr. Meyer possibility of BM suppression, also may check TSH and hold for now with f/u TSH as initial etiology of hyperthyroidism may have resolved * H/o PE on eliquis Plan: * IV NS monitory rate of correction about 10meq/day * Tsh hold on methmazole * Oral vanco has been started * CT abd/pelvis to check extent of disease as patient is immunocompromised * Since patient is nontoxic and responding to the current treatment could be monitored on tele floor. * D/w ER, Dr Meyer. * DVT prophylaxis with eliquis,
[2017-05-14] MEDS ORDERED: Iodixanol 320 MG/ML 100 ML BOTTLE IV ONE (23:25)
[2017-05-15] MEDS ORDERED: metroNIDAZOLE IV 500 mg/100 ml 500 MG/100 ML BAG ONE (00:27)
[2017-05-15] MEDS ORDERED: Albumin Human 25% (12.5 gm/50 ml) IV SCH (02:00)
[2017-05-15] MEDS: Sodium Chloride 0.9% 1,000 ML IV SCH ×3 (02:00→20:00)
[2017-05-15] MEDS: Albumin Human 25% (12.5 gm/50 ml) IV SCH ×3 (02:05→02:50)
--- NOTE | 2017-05-15 02:20 | CT ---
EXAM: CT Abdomen and Pelvis With Intravenous Contrast CLINICAL HISTORY: 76 years old, female; Pain; Abdominal pain; Patient HX: 04-29-17 images sent; Additional info: C diff colitis TECHNIQUE: Axial computed tomography images of the abdomen and pelvis with intravenous contrast. All CT scans at this facility use one or more dose reduction techniques, viz.: automated exposure control; ma/kV adjustment per patient size (including targeted exams where dose is matched to indication; i.e. head); or iterative reconstruction technique. Coronal and sagittal reformatted images were created and reviewed. CONTRAST: 100 mL of [id number] administered intravenously. COMPARISON: CT - LIVER PROTOCOL TRIPLE PHASE 2017-04-29 13:32 FINDINGS: Limitations: Motion artifact - mild. Lower thorax: 0.8 cm LEFT lower lobe nodule. Minimal atelectasis/scarring. ABDOMEN: Liver: Few low-attenuation lesions with benign imaging features. Gallbladder and bile ducts: Focal soft tissue density along gallbladder fundus. Mild stranding about gallbladder. No calcified gallstones. No significant ductal dilation. Pancreas: No ductal dilation. No mass. Spleen: No splenomegaly. Adrenals: No mass. Kidneys and ureters: No mass. No hydronephrosis. Stomach and bowel: [id number] diffuse mural thickening of large bowel. Mild stranding about rectum. No obstruction. Appendix: Enlarged appendix, measuring up to 0.9 cm in diameter. No definite surrounding inflammatory stranding. PELVIS: Bladder: Unremarkable. Reproductive: Unremarkable as visualized. ABDOMEN and PELVIS: Intraperitoneal space: No significant fluid collection. No free air. Bones/joints: Degenerative changes and scoliosis of spine. No acute fracture. Soft tissues: Mild stranding within subcutaneous tissues. Vasculature: Mild atherosclerotic disease. No aneurysm. Lymph nodes: No pathologically enlarged lymph nodes. IMPRESSION: 1. Colitis, nonspecific. Consider inflammatory or infectious etiologies. 2. Enlarged appendix without definite inflammation. Clinical correlation is needed. 3. Mild stranding about gallbladder concerning for cholecystitis. Clinical correlation is needed. 4. Soft tissue density along gallbladder fundus. DDX: Collapse phrygian cap, focal adenomyomatosis, neoplasm. Followup as clinically warranted. 5. Liver lesions. No follow-up is necessary. 6. Pulmonary nodule. For low-risk patients recommend follow-up chest CT at 6-12 months. If unchanged consider an additional follow-up CT at 18-24 months. For high-risk patients (smoking history or other known risk factors) initial follow-up chest CT at 6-12 months and if unchanged, 18-24 months. 7. Incidental/non-acute findings are described above.
[2017-05-15 04:00] VITALS: BMI 24.9
[2017-05-15] MEDS ORDERED: Sodium Chloride 0.9% 500 ML IV ONE ×2 (04:41→05:23)
[2017-05-15] MEDS ORDERED: Sodium Chloride 0.9% 1,000 ML IV ONE (06:22)
[2017-05-15 06:35] LABS: EOS # 0.2 K/uL (0.0-0.7); EOS % 4.3 % (0.0-4.0); HEMOGLOBIN 6.8 g/dL (11.0-16.0); LYMPH # 2.2 K/uL (1.0-4.3); LYMPH % 39.1 % (20.0-40.0); MEAN CORPUSCULAR HEMOGLOBIN 26.1 pg (27.0-31.0); MEAN CORPUSCULAR HGB CONC 32.3 g/dL (33.0-37.0); MEAN PLATELET VOLUME 9.8 fL (7.2-11.7); MONO % 0.7 % (0.0-10.0); NEUT # 3.1 K/uL (1.8-7.0); NEUT % 55.9 % (50.0-75.0); NRBC % 0.4 % (0.0-2.0); RBC 2.6 Mil/uL (3.80-5.20); WHITE BLOOD COUNT 5.6 K/uL (4.8-10.8)
[2017-05-15 06:55] LABS: ALB/GLOB RATIO 0.8 (1.0-2.1); ALBUMIN 2.1 g/dL (3.5-5.0); ALT/SGPT 33 U/L (9-52); AST/SGOT 23 U/L (14-36); BLOOD UREA NITROGEN 9 mg/dL (7-17); CALCIUM 6.8 mg/dl (8.6-10.4); GFR AFRICAN-AMERICAN > 60; GFR NON-AFRICAN AMERICAN > 60; MAGNESIUM 2.1 mg/dL (1.6-2.3)
--- NOTE | 2017-05-15 09:05 | CP.PCM.HP ---
History of Present Illness - History of Present Illness History of Present Illness: CC: Weak 76 y/o female with MDS, Recent Pulm Emboli & HTN. Patient given antibiotic on 05/01 and later develop diarrhea. Patient has soft to watery stool x 2 wks. Her diarrhea worsen x 2 days and was now associated w/ fever (>101). She went to ER and was admitted for Na 116, & (+) C diff. Present on Admission - Present on Admission Any Indicators Present on Admission: Yes History of DVT/PE: No History of Uncontrolled Diabetes: No Urinary Catheter: No Decubitus Ulcer Present: No Review of Systems - Review of Systems Systems not reviewed;Unavailable: Acuity of Condition - Constitutional Constitutional: Weight Loss. absent: Headache, Increased Appetite, Night Sweats - EENT Eyes: absent: Diplopia, Loss of Peripheral Vision, Sees Flashes, Other Visual Disturbances Ears: absent: Disequilibrium, Dizziness Nose/Mouth/Throat: absent: Nose Pain, Change in Voice, Dysphagia - Breasts Breasts: absent: Pain - Cardiovascular Cardiovascular: absent: Chest Pain with Activity, Claudication, Irregular Heart Rhythm, Leg Ulcers, Orthopnea - Respiratory Respiratory: absent: Cough, Dyspnea on Exertion, Chest Congestion, Change in Mucous Color - Gastrointestinal Gastrointestinal: Diarrhea, Loose Stools. absent: Belching, Dyspepsia, Fecal Incontinence, Nausea, Vomiting - Genitourinary Genitourinary: Nocturia, Urinary Frequency. absent: Urinary Urgency, Bladder Distension - Musculoskeletal Musculoskeletal: absent: Back Pain, Muscle Weakness, Neck Pain, Stiffness, Tingling - Integumentary Integumentary: Dry Skin. absent: Skin Ulcer, Wounds - Neurological Neurological: Dizziness, Weakness. absent: Behavioral Changes, Focal Weakness, Tingling Past Patient History - Infectious Disease Hx of Infectious Diseases: None - Past Medical History & Family History Past Medical History?: Yes - Past Social History Smoking Status: Never Smoked - CARDIAC Hx Cardiac Disorders: Yes Hx Hypercholesterolemia: Yes Hx Hypertension: Yes - PULMONARY Hx Respiratory Disorders: Yes Hx Pneumonia: Yes - NEUROLOGICAL Hx Neurological Disorder: No - HEENT Hx HEENT Problems: No - RENAL Hx Chronic Kidney Disease: No - ENDOCRINE/METABOLIC Hx Endocrine Disorders: Yes Hx Hyperthyroidism: Yes Hx Hypothyroidism: Yes - HEMATOLOGICAL/ONCOLOGICAL Hx Blood Disorders: Yes Hx Anemia: Yes Hx Blood Transfusions: Yes Hx Blood Transfusion Reaction: No Other/Comment: MDS- MYELODYSPLASTIC SYNDROME - INTEGUMENTARY Hx Dermatological Problems: No - MUSCULOSKELETAL/RHEUMATOLOGICAL Hx Musculoskeletal Disorders: Yes Hx Falls: Yes - GASTROINTESTINAL Hx Gastrointestinal Disorders: Yes Hx Gastritis: Yes - GENITOURINARY/GYNECOLOGICAL Hx Genitourinary Disorders: No - PSYCHIATRIC Hx Psychophysiologic Disorder: No Hx Substance Use: No - SURGICAL HISTORY Hx Surgeries: No - ANESTHESIA Hx Anesthesia: No Hx Anesthesia Reactions: No Hx Malignant Hyperthermia: No Has any member of the family had a problem w/ anesthesia?: No Meds Allergies/Adverse Reactions: Allergies Allergy/AdvReac Type Severity Reaction Status Date / Time No Known Allergies Allergy Verified 05/14/17 16:14 Physical Exam - Constitutional Appears: No Acute Distress - Eye Exam Eye Exam: absent: Conjunctival injection, Periorbital swelling, Periorbital tenderness - ENT Exam ENT Exam: Mucous Membranes Dry, Normal Exam - Neck Exam Neck exam: Positive for: Full Rom. Negative for: Lymphadenopathy, Thyromegaly - Respiratory Exam Respiratory Exam: Decreased Breath Sounds. absent: Rales, Rhonchi, Wheezes - Cardiovascular Exam Cardiovascular Exam: REGULAR RHYTHM, +S1, +S2. absent: Gallop, JVD - GI/Abdominal Exam GI & Abdominal Exam: Soft. absent: Guarding, Rigid, Tenderness - Extremities Exam Extremities exam: Positive for: full ROM, normal capillary refill. Negative for : joint swelling Results - Vital Signs Recent Vital Signs: Last Vital Signs Temp 98.8 F 05/15/17 08:00 Pulse 94 H 05/15/17 08:00 Resp 26 H 05/15/17 07:19 BP 94/49 L 05/15/17 07:19 Pulse Ox 100 05/15/17 07:19 - Labs Result Diagrams: 05/15/17 06:18 05/15/17 06:20 Labs: Laboratory Results - last 24 hr 05/14/17 05/14/17 05/14/17 17:58 17:58 18:30 WBC 8.7 D RBC 3.34 L Hgb 8.5 L Hct 26.2 L MCV 78.4 L D MCH 25.4 L MCHC 32.4 L RDW 28.6 H Plt Count 586 H D MPV 9.8 Neut % (Auto) 91.5 H Lymph % (Auto) 0.7 L [place] % (Auto) 3.0 Eos % (Auto) 4.8 H Baso % (Auto) 0.0 Neut # 8.0 H Lymph # 0.1 L [place] # 0.3 Eos # 0.4 Baso # 0.0 Neutrophils % (Manual) 36 L Band Neutrophils % 13 H* Lymphocytes % (Manual) 31 Reactive Lymphs % 8 H Monocytes % (Manual) 3 Eosinophils % (Manual) 9 H Platelet Estimate Increased H Giant Platelets Present Polychromasia Slight Hypochromasia (manual) Moderate Poikilocytosis (manual Moderate Anisocytosis (manual) Marked Microcytosis (manual) Slight Macrocytosis (manual) Slight Target Cells Slight Tear Drop Cells Slight Ovalocytes Slight [place] Cells Slight Schistocytes Slight Sodium 116 L* Potassium 4.8 Chloride 89 L Carbon Dioxide 24 Anion Gap 8 L BUN 11 Creatinine 0.6 L Est GFR ( Amer) > 60 Est GFR (Non-Af Amer) > 60 Random Glucose 106 H Lactic Acid Calcium 7.0 L Phosphorus Magnesium Total Bilirubin 1.1 AST 41 H ALT 23 Alkaline Phosphatase 47 Total Protein 6.5 Albumin 2.6 L D Globulin 3.9 Albumin/Globulin Ratio 0.7 L Lipase < 10 L TSH 3rd Generation Urine Color Jayda Urine Clarity Clear Urine pH 5.0 Ur Specific [place] 1.026 Urine Protein 1+ H Urine Glucose (UA) Normal Urine Ketones Negative Urine Blood Negative Urine Nitrate Negative Urine Bilirubin Negative Urine Urobilinogen Normal Ur Leukocyte Esterase Neg Urine WBC (Auto) 2 Urine RBC (Auto) < 1 Ur Squamous Epith Cells 3 Urine Bacteria Rare C. difficile Ag & Toxin Blood Type Antibody Screen Crossmatch 05/14/17 05/14/17 05/14/17 18:30 22:37 22:37 WBC 6.7 RBC 2.92 L Hgb 7.6 L Hct 23.0 L MCV 78.8 L MCH 26.1 L MCHC 33.2 RDW 27.0 H Plt Count 656 H MPV 9.7 Neut % (Auto) 69.5 Lymph % (Auto) 24.4 [place] % (Auto) 0.9 Eos % (Auto) 5.2 H Baso % (Auto) 0.0 Neut # 4.6 Lymph # 1.6 [place] # 0.1 Eos # 0.3 Baso # 0.0 Neutrophils % (Manual) Band Neutrophils % Lymphocytes % (Manual) Reactive Lymphs % Monocytes % (Manual) Eosinophils % (Manual) Platelet Estimate Giant Platelets Polychromasia Hypochromasia (manual) Poikilocytosis (manual Anisocytosis (manual) Microcytosis (manual) Macrocytosis (manual) Target Cells Tear Drop Cells Ovalocytes Eli Cells Schistocytes Sodium 120 L* Potassium 4.0 Chloride 93 L Carbon Dioxide 24 Anion Gap 7 L BUN 9 Creatinine 0.6 L Est GFR ( Amer) > 60 Est GFR (Non-Af Amer) > 60 Random Glucose 108 H Lactic Acid Calcium 6.7 L Phosphorus 3.4 Magnesium 1.9 Total Bilirubin 0.5 AST 18 ALT 31 Alkaline Phosphatase 52 Total Protein 5.1 L Albumin 2.1 L Globulin 3.0 Albumin/Globulin Ratio 0.7 L Lipase TSH 3rd Generation 1.41 Urine Color Urine Clarity Urine pH Ur Specific [place] Urine Protein Urine Glucose (UA) Urine Ketones Urine Blood Urine Nitrate Urine Bilirubin Urine Urobilinogen Ur Leukocyte Esterase Urine WBC (Auto) Urine RBC (Auto) Ur Squamous Epith Cells Urine Bacteria C. difficile Ag & Toxin Positive H Blood Type Antibody Screen Crossmatch 05/15/17 05/15/17 05/15/17 06:18 06:20 06:30 WBC 5.6 RBC 2.60 L Hgb 6.8 L Hct 21.1 L MCV 81.0 D MCH 26.1 L MCHC 32.3 L RDW 26.0 H Plt Count 489 H D MPV 9.8 Neut % (Auto) 55.9 Lymph % (Auto) 39.1 [place] % (Auto) 0.7 Eos % (Auto) 4.3 H Baso % (Auto) 0.0 Neut # 3.1 Lymph # 2.2 [place] # 0.0 Eos # 0.2 Baso # 0.0 Neutrophils % (Manual) Band Neutrophils % Lymphocytes % (Manual) Reactive Lymphs % Monocytes % (Manual) Eosinophils % (Manual) Platelet Estimate Giant Platelets Polychromasia Hypochromasia (manual) Poikilocytosis (manual Anisocytosis (manual) Microcytosis (manual) Macrocytosis (manual) Target Cells Tear Drop Cells Ovalocytes [place] Cells Schistocytes Sodium 119 L* Potassium 4.1 Chloride 95 L Carbon Dioxide 21 L Anion Gap 7 L BUN 9 Creatinine 0.6 L Est GFR ( Amer) > 60 Est GFR (Non-Af Amer) > 60 Random Glucose 91 Lactic Acid 0.9 Calcium 6.8 L Phosphorus 3.7 Magnesium 2.1 Total Bilirubin 0.8 AST 23 ALT 33 Alkaline Phosphatase 37 L D Total Protein 4.9 L Albumin 2.1 L Globulin 2.8 Albumin/Globulin Ratio 0.8 L Lipase TSH 3rd Generation Urine Color Urine Clarity Urine pH Ur Specific [place] Urine Protein Urine Glucose (UA) Urine Ketones Urine Blood Urine Nitrate Urine Bilirubin Urine Urobilinogen Ur Leukocyte Esterase Urine WBC (Auto) Urine RBC (Auto) Ur Squamous Epith Cells Urine Bacteria C. difficile Ag & Toxin Blood Type Antibody Screen Crossmatch 05/15/17 08:19 WBC RBC Hgb Hct MCV MCH MCHC RDW Plt Count MPV Neut % (Auto) Lymph % (Auto) [place] % (Auto) Eos % (Auto) Baso % (Auto) Neut # Lymph # [place] # Eos # Baso # Neutrophils % (Manual) Band Neutrophils % Lymphocytes % (Manual) Reactive Lymphs % Monocytes % (Manual) Eosinophils % (Manual) Platelet Estimate Giant Platelets Polychromasia Hypochromasia (manual) Poikilocytosis (manual Anisocytosis (manual) Microcytosis (manual) Macrocytosis (manual) Target Cells Tear Drop Cells Ovalocytes [place] Cells Schistocytes Sodium Potassium Chloride Carbon Dioxide Anion Gap BUN Creatinine Est GFR ( Amer) Est GFR (Non-Af Amer) Random Glucose Lactic Acid Calcium Phosphorus Magnesium Total Bilirubin AST ALT Alkaline Phosphatase Total Protein Albumin Globulin Albumin/Globulin Ratio Lipase TSH 3rd Generation Urine Color Urine Clarity Urine pH Ur Specific [place] Urine Protein Urine Glucose (UA) Urine Ketones Urine Blood Urine Nitrate Urine Bilirubin Urine Urobilinogen Ur Leukocyte Esterase Urine WBC (Auto) Urine RBC (Auto) Ur Squamous Epith Cells Urine Bacteria C. difficile Ag & Toxin Blood Type O POSITIVE Antibody Screen Negative Crossmatch See Detail - EKG Data EKG Interpreted by: Myself Assessment & Plan - Assessment and Plan (Free Text) Assessment: C diff colitis Recent Pulm Embili, MDS, HTN Cont meds/ Vanco + Flagyl ID and Alejandro f/up
[2017-05-15] MEDS: Vancomycin 125 MG/5 ML SOLN (ORAL/RECTAL) PO SCH ×4 (09:29→22:30)
--- NOTE | 2017-05-15 14:02 | CARD ---
APPROVED REPORT EKG Measurement Heart [id number] <Conclusion> Normal sinus rhythm Low voltage QRS Abnormal ECG
[2017-05-15] MEDS ORDERED: DiphenhydrAMINE 50 mg/ml Inj IVP STA (17:40)
[2017-05-16] MEDS: Sodium Chloride 0.9% 1,000 ML IV SCH ×2 (05:00→14:46)
[2017-05-16 06:09] LABS: MEAN CELL VOLUME 81.7 fL (81.0-99.0); MEAN CORPUSCULAR HEMOGLOBIN 27.8 pg (27.0-31.0); MEAN PLATELET VOLUME 10.3 fL (7.2-11.7); RBC 3.27 Mil/uL (3.80-5.20); RED CELL DISTRIBUTION WIDTH 23.9 % (11.5-14.5); WHITE BLOOD COUNT 7.9 K/uL (4.8-10.8)
[2017-05-16 06:43] LABS: ALB/GLOB RATIO 0.7 (1.0-2.1); ALT/SGPT 27 U/L (9-52); AST/SGOT 19 U/L (14-36); BLOOD UREA NITROGEN 5 mg/dL (7-17); CALCIUM 6.9 mg/dl (8.6-10.4); GFR AFRICAN-AMERICAN > 60; GFR NON-AFRICAN AMERICAN > 60
[2017-05-16 07:26] LABS: HEMOGLOBIN 9.1 g/dL (11.0-16.0)
--- NOTE | 2017-05-16 08:24 | CP.PCM.PN ---
Subjective - Date & Time of Evaluation Date of Evaluation: 05/16/16 Time of Evaluation: 08:32 - Subjective Subjective: Melva still has diarrhea and feels sore on her bottom. Want solid food but no n/V No CP, no SOB, no edema; (+) cough w/ white or yellowish mucus Objective - Vital Signs/Intake and Output Vital Signs (last 24 hours): Temp Pulse Resp BP Pulse Ox 98.2 F 92 H 22 101/48 L 95 05/16/17 04:00 05/16/17 04:00 05/16/17 04:00 05/16/17 04:00 05/16/17 04:00 Intake and Output: 05/16/17 05/16/17 06:59 18:59 Intake Total 1220 Output Total 800 Balance 420 - Medications Medications: Current Medications Apixaban (Eliquis) 5 mg PO BID [facility] Last Admin: 05/15/17 17:57 Dose: 5 mg Famotidine (Pepcid) 20 mg PO DAILY [facility] Last Admin: 05/15/17 09:29 Dose: 20 mg Sodium Chloride (Sodium Chloride 0.9%) 1,000 mls @ 100 mls/hr IV .Q10H [facility] Last Admin: 05/16/17 05:00 Dose: 100 mls/hr Vancomycin HCl (Vancocin (Oral Or Rectal Use)) 250 mg PO QID [facility] Last Admin: 05/15/17 22:30 Dose: 250 mg - Labs Labs: 05/16/17 05:56 05/16/17 05:58 - Constitutional Appears: No Acute Distress - Eye Exam Eye Exam: Normal appearance - ENT Exam ENT Exam: Mucous Membranes Moist - Neck Exam Neck Exam: Full ROM, Normal Inspection - Respiratory Exam Respiratory Exam: Decreased Breath Sounds, Wheezes. absent: Rales, Rhonchi - Cardiovascular Exam Cardiovascular Exam: REGULAR RHYTHM, +S1, +S2, Murmur. absent: Gallop - GI/Abdominal Exam GI & Abdominal Exam: Soft. absent: Tenderness, Mass - Extremities Exam Extremities Exam: Full ROM, Normal Capillary Refill. absent: Joint Swelling Assessment and Plan - Assessment and Plan (Free Text) Assessment: Hyponatremia; C diff colitis MDS w/ anemia - post transfusion Wheezing ? COPD Hyperthyroidism, HTN and Recent PE Advance diet; DoaNeb for now Conmt supportive cre
[2017-05-16] MEDS: methIMAzole 5 MG TAB PO SCH (10:53)
[2017-05-16] MEDS: Vancomycin 125 MG/5 ML SOLN (ORAL/RECTAL) PO SCH ×4 (10:54→22:00)
[2017-05-16] MEDS: Albuterol-Ipratrop 3 mg / 0.5 (3 ml) UD INH SCH ×2 (16:35→20:39)
--- NOTE | 2017-05-16 17:19 | CP.PCM.CON ---
History of Present Illness - History of Present Illness History of Present Illness: 76 F came to the hospital with c/o diarrhea for about 2 wks, worsened 2 days , fever at home, diffuse abd pain, patient initially went to Dr Green's off who sent her the ER. She was found to have Cdiff antigen +, hyponatremia of 116, clinically dry. Referred for ID gemma because of this PMH h/o PE on eliquis, MDS, chronic refractory anemia, thrombocytosis, on revlimid po, h/o hyperthyroidism on methimazole Meds Reviewed Allergies NKDA Family history not contributory Social history denies smoking, alcohol, illicit drugs Review of Systems - Constitutional Constitutional: As Per HPI - EENT Eyes: absent: As Per HPI, Blind Spots, Blurred Vision, Change in Vision, Decreased Night Vision, Diplopia, Discharge, Dry Eye, Exophthalmos, Floaters, Irritation, Itchy Eyes, Loss of Peripheral Vision, Pain, Photophobia, Requires Corrective Lenses, Sees Flashes, Spots in Vision, Tunnel Vision, Other Visual Disturbances, Loss of Vision, Other Ears: absent: As Per HPI, Decreased Hearing, Ear Discharge, Ear Pain, Tinnitus, Abnormal Hearing, Disequilibrium, Dizziness, Other Nose/Mouth/Throat: absent: As Per HPI, Epistaxis, Nasal Congestion, Nasal Discharge, Nasal Obstruction, Nasal Trauma, Nose Pain, Post Nasal Drip, Sinus Pain, Sinus Pressure, Bleeding Gums, Change in Voice, Dental Pain, Dry Mouth, Dysphagia, Halitosis, Hoarsness, Lip Swelling, Mouth Lesions, Mouth Pain, Odynophagia, Sore Throat, Throat Swelling, Tongue Swelling, Facial Pain, Neck Pain, Neck Mass, Other - Breasts Breasts: absent: As Per HPI, Change in Shape, Mass, Pain, Nipple Discharge, Nipple Inversion, Skin Changes, Swelling, Other - Cardiovascular Cardiovascular: absent: As Per HPI, Acrocyanosis, Chest Pain, Chest Pain at Rest , Chest Pain with Activity, Claudication, Diaphoresis, Dyspnea, Dyspnea on Exertion, Edema, Irregular Heart Rhythm, Pain Radiating to Arm/Neck/Jaw, Leg Edema, Leg Ulcers, Lightheadedness, Orthopnea, Palpitations, Paroxysmal Nocturnal Dyspnea, Pedal Edema, Radiating Pain, Rapid Heart Rate, Slow Heart Rate, Syncope, Other - Respiratory Respiratory: absent: As Per HPI, Cough, Dyspnea, Hemoptysis, Dyspnea on Exertion , Wheezing, Snoring, Stridor, Pain on Inspiration, Chest Congestion, Excessive Mucous Production, Change in Mucous Color, Pain with Coughing, Other - Gastrointestinal Gastrointestinal: As Per HPI, Abdominal Pain, Cramping, Diarrhea - Genitourinary Genitourinary: absent: As Per HPI, Change in Urinary Stream, Difficulty Urinating, Dysuria, Flank Pain, Hematuria, Pyuria, Nocturia, Urinary Incontinence, Urinary Frequency, Urinary Hesitance, Urinary Urgency, Voiding Freq/Small Amts, Freq UTI, Hx Renal/Bladder Calculi, Hx /Renal Surgery, Bladder Distension, Other - Reproductive: Female Reproductive:Female: absent: As Per HPI, Amenorrhea, Amenorrhea/ Control, Currently Menstual, Cycle <21 Days, Cycle >35 Days, Cycle Variable, Menses 1-7 Days, Menses >/= 8 Days, Menses Variable, Cycle > 4 Weeks Between, No Menses for 6 Months, Heavy Menses, Light Menses, Normal Menses, Spotting Between Cycles , S/P Hysterectomy, Menopausal, Post Menopausal, Premenarche, Abnormal Vaginal Bleeding, Dysmenorrhea, Dyspareunia, Genital Lesions, Genital Pruritis, Pelvic Pain, Prolapse Symptoms, Sexual Dysfunction, Vaginal Discharge, Vaginal Dryness , Vaginal Odor, Vaginal Pruritis, Other - Menstruation Menstruation: absent: As Per HPI, Amenorrhea, Amenorrhea/ Control, Currently Menstual, Cycle <21 Days, Cycle >35 Days, Cycle Variable, Menses 1-7 Days, Menses >/= 8 Days, Menses Variable, Cycle > 4 Weeks Between, No Menses for 6 Months, Heavy Menses, Light Menses, Normal Menses, Spotting Between Cycles , S/P Hysterectomy, Menopausal, Post Menopausal, Premenarche, Abnormal Vaginal Bleeding, Dysmenorrhea, Other - Musculoskeletal Musculoskeletal: absent: As Per HPI, Abnormal Gait, Arthralgias, Atrophy, Back Pain, Deformity, Joint Swelling, Limited Range of Motion, Loss of Height, Muscle Cramps, Muscle Weakness, Myalgias, Neck Pain, Numbness, Radiating Pain into Limb, Stiffness, Tingling, Other - Integumentary Integumentary: absent: As Per HPI, Acne, Alopecia, Bleeding Lesions, Change in Hair, Change in Nails, Change in Pigmentation, Changing Lesions, Dry Skin, Erythema, Furuncle, Hirsutism, Lesions, New Lesions, Non-Healing Lesions, Photosensitivity, Pruritus, Rash, Skin Pain, Skin Ulcer, Sores, Striae, Swelling , Unusual Bruising, Wounds, Jaundice, Other - Neurological Neurological: absent: As Per HPI, Abnormal Gait, Abnormal Hearing, Abnormal Movements, Abnormal Speech, Behavioral Changes, Burning Sensations, Confusion, Convulsions, Disequilibrium, Dizziness, Numbness, Focal Weakness, Frequent Falls , Headaches, Lack of Coordination, Loss of Vision, Memory Loss, Paresthesias, Radicular Pain, Restless Legs, Sensory Deficit, Syncope, Tingling, Tremor, Vertigo, Weakness, Other Visual Disturbances, Other - Psychiatric Psychiatric: absent: As Per HPI, Abnormal Sleep Pattern, Anhedonia, Anxiety, Auditory Hallucinations, Behavioral Changes, Change in Appetite, Change in Libido, Confusion, Depression, Difficulty Concentrating, Hallucinations, Homicidal Ideation, Hopelessness, Irritability, Memory Loss, Mood Swings, Panic Attacks, Paranoia, Suicidal Ideation, Visual Hallucinations, Tactile Hallucinations, Other - Endocrine Endocrine: absent: As Per HPI, Change in Body Appearance, Change in Libido, Cold Intolorance, Deepening of Voice, Excessive Sweating, Fatigue, Flushing, Heat Intolorance, Increase in Ring/Shoe/Hat Size, Palpitations, Polydipsia, Polyphagia, Polyuria, Other - Hematologic/Lymphatic Hematologic: As Per HPI Past Patient History - Infectious Disease Hx of Infectious Diseases: None - Past Medical History & Family History Past Medical History?: Yes - Past Social History Smoking Status: Never Smoked - CARDIAC Hx Cardiac Disorders: Yes Hx Hypercholesterolemia: Yes Hx Hypertension: Yes - PULMONARY Hx Respiratory Disorders: Yes Hx Pneumonia: Yes - NEUROLOGICAL Hx Neurological Disorder: No - HEENT Hx HEENT Problems: No - RENAL Hx Chronic Kidney Disease: No - ENDOCRINE/METABOLIC Hx Endocrine Disorders: Yes Hx Hyperthyroidism: Yes Hx Hypothyroidism: Yes - HEMATOLOGICAL/ONCOLOGICAL Hx Blood Disorders: Yes Hx Anemia: Yes Hx Blood Transfusions: Yes Hx Blood Transfusion Reaction: No Other/Comment: MDS- MYELODYSPLASTIC SYNDROME - INTEGUMENTARY Hx Dermatological Problems: No - MUSCULOSKELETAL/RHEUMATOLOGICAL Hx Musculoskeletal Disorders: Yes Hx Falls: Yes - GASTROINTESTINAL Hx Gastrointestinal Disorders: Yes Hx Gastritis: Yes - GENITOURINARY/GYNECOLOGICAL Hx Genitourinary Disorders: No - PSYCHIATRIC Hx Psychophysiologic Disorder: No Hx Substance Use: No - SURGICAL HISTORY Hx Surgeries: No - ANESTHESIA Hx Anesthesia: No Hx Anesthesia Reactions: No Hx Malignant Hyperthermia: No Has any member of the family had a problem w/ anesthesia?: No Meds Allergies/Adverse Reactions: Allergies Allergy/AdvReac Type Severity Reaction Status Date / Time No Known Allergies Allergy Verified 05/14/17 16:14 - Medications Medications: Current Medications Albuterol/Ipratropium (Duoneb 3 Mg/0.5 Mg (3 Ml) Ud) 3 ml INH RQID [facility] Apixaban (Eliquis) 5 mg PO BID [facility] Last Admin: 05/16/17 17:05 Dose: 5 mg Famotidine (Pepcid) 20 mg PO DAILY [facility] Last Admin: 05/16/17 10:53 Dose: 20 mg Sodium Chloride (Sodium Chloride 0.9%) 1,000 mls @ 100 mls/hr IV .Q10H [facility] Last Admin: 05/16/17 14:46 Dose: 100 mls/hr Methimazole (Tapazole) 5 mg PO DAILY [facility] Last Admin: 05/16/17 10:53 Dose: 5 mg Vancomycin HCl (Vancocin (Oral Or Rectal Use)) 250 mg PO QID [facility] Last Admin: 05/16/17 17:04 Dose: 250 mg Physical Exam - Constitutional Appears: Non-toxic, Cachectic, Chronically Ill - Head Exam Head Exam: ATRAUMATIC, NORMAL INSPECTION, NORMOCEPHALIC - Eye Exam Eye Exam: EOMI, PERRL. absent: Scleral icterus - ENT Exam ENT Exam: Mucous Membranes Dry, Normal External Ear Exam, Normal Oropharynx - Neck Exam Neck exam: Negative for: Lymphadenopathy - Respiratory Exam Respiratory Exam: Decreased Breath Sounds, Clear to Auscultation Bilateral - Cardiovascular Exam Cardiovascular Exam: REGULAR RHYTHM, +S1, +S2 - GI/Abdominal Exam GI & Abdominal Exam: Diminished Bowel Sounds, Distended, Hyperactive Bowel Sounds, Soft. absent: Tenderness - Rectal Exam Rectal Exam: Deferred - Exam Exam: NORMAL INSPECTION - Back Exam Back exam: absent: CVA tenderness (L), CVA tenderness (R) - Neurological Exam Neurological exam: Alert, CN II-XII Intact, Oriented x3, Reflexes Normal - Psychiatric Exam Psychiatric exam: Anxious - Skin Skin Exam: Dry Results - Vital Signs Recent Vital Signs: Last Vital Signs Temp 98.4 F 05/16/17 16:00 Pulse 104 H 05/16/17 16:00 Resp 17 05/16/17 16:00 BP 106/55 L 05/16/17 16:00 Pulse Ox 95 05/16/17 04:00 - Labs Result Diagrams: 05/16/17 05:56 05/16/17 05:58 Labs: Laboratory Results - last 24 hr 05/16/17 05/16/17 05:56 05:58 WBC 7.9 RBC 3.27 L Hgb 9.1 L D Hct 26.7 L MCV 81.7 MCH 27.8 MCHC 34.0 RDW 23.9 H Plt Count 686 H D MPV 10.3 Sodium 121 L Potassium 3.6 Chloride 97 L Carbon Dioxide 22 Anion Gap 6 L BUN 5 L Creatinine 0.5 L Est GFR ( Amer) > 60 Est GFR (Non-Af Amer) > 60 Random Glucose 97 Calcium 6.9 L Total Bilirubin 0.7 AST 19 ALT 27 Alkaline Phosphatase 45 Total Protein 4.8 L Albumin 2.0 L Globulin 2.8 Albumin/Globulin Ratio 0.7 L Assessment & Plan (1) C. difficile colitis Status: Acute (2) Hyponatremia Status: Acute (3) Hypotension Status: Acute (4) Abnormal CT of liver Status: Acute (5) Dehydration Status: Acute (6) Myelodysplasia (myelodysplastic syndrome) Status: Acute - Assessment and Plan (Free Text) Assessment: iv and po rc in progress cont hydration monitor lytes GI eval dr Thurman
[2017-05-17] MEDS: Sodium Chloride 0.9% 1,000 ML IV SCH ×2 (01:17→11:40)
[2017-05-17 07:01] LABS: ALB/GLOB RATIO 0.7 (1.0-2.1); ALBUMIN 1.9 g/dL (3.5-5.0); ALT/SGPT 26 U/L (9-52); AST/SGOT 12 U/L (14-36); BLOOD UREA NITROGEN 4 mg/dL (7-17); CALCIUM 6.9 mg/dl (8.6-10.4); GFR AFRICAN-AMERICAN > 60; GFR NON-AFRICAN AMERICAN > 60
[2017-05-17] MEDS: Albuterol-Ipratrop 3 mg / 0.5 (3 ml) UD INH SCH ×4 (08:16→19:43)
[2017-05-17] MEDS: methIMAzole 5 MG TAB PO SCH (10:46)
[2017-05-17] MEDS: Vancomycin 125 MG/5 ML SOLN (ORAL/RECTAL) PO SCH ×4 (11:20→22:24)
[2017-05-17] MEDS ORDERED: Potassium Chloride 20 mEq ER Tab PO STA (11:45)
--- NOTE | 2017-05-17 15:52 | CP.PCM.PN ---
Subjective - Date & Time of Evaluation Date of Evaluation: 05/17/17 Time of Evaluation: 15:49 - Subjective Subjective: S: Feels better. diarrhea better. Objective - Vital Signs/Intake and Output Vital Signs (last 24 hours): Temp Pulse Resp BP Pulse Ox 98.4 F 81 21 98/60 L 98 05/17/17 12:00 05/17/17 12:00 05/17/17 12:00 05/17/17 12:00 05/17/17 08:00 Intake and Output: 05/17/17 05/17/17 06:59 18:59 Intake Total 1360 1060 Balance 1360 1060 - Medications Medications: Current Medications Albuterol/Ipratropium (Duoneb 3 Mg/0.5 Mg (3 Ml) Ud) 3 ml INH RQID [facility] Last Admin: 05/17/17 11:23 Dose: 3 ml Apixaban (Eliquis) 5 mg PO BID [facility] Last Admin: 05/17/17 10:46 Dose: 5 mg Famotidine (Pepcid) 20 mg PO DAILY [facility] Last Admin: 05/17/17 10:46 Dose: 20 mg Sodium Chloride (Sodium Chloride 0.9%) 1,000 mls @ 100 mls/hr IV .Q10H [facility] Last Admin: 05/17/17 11:40 Dose: 100 mls/hr Methimazole (Tapazole) 5 mg PO DAILY [facility] Last Admin: 05/17/17 10:46 Dose: 5 mg Potassium Chloride (K-Dur 20 Meq Er Tab) 20 meq PO DAILY [facility] Stop: 05/20/17 10:01 Vancomycin HCl (Vancocin (Oral Or Rectal Use)) 250 mg PO QID [facility] Last Admin: 05/17/17 14:35 Dose: 250 mg - Labs Labs: 05/16/17 05:56 05/17/17 06:39 - Constitutional Appears: Chronically Ill - Head Exam Head Exam: NORMAL INSPECTION - Eye Exam Eye Exam: Normal appearance - ENT Exam ENT Exam: Mucous Membranes Dry - Neck Exam Neck Exam: Normal Inspection - Respiratory Exam Respiratory Exam: NORMAL BREATHING PATTERN - Cardiovascular Exam Cardiovascular Exam: REGULAR RHYTHM - GI/Abdominal Exam GI & Abdominal Exam: Soft - Rectal Exam Rectal Exam: Deferred - Extremities Exam Extremities Exam: Normal Inspection - Neurological Exam Neurological Exam: Awake Assessment and Plan (1) C. difficile colitis Status: Acute (2) Hypotension Status: Acute (3) History of pulmonary embolism Status: Chronic - Assessment and Plan (Free Text) Assessment: A/P Continue medication. Kenny to transfer regular floor. Discuss case with nursing staff
[2017-05-18 06:58] LABS: BLOOD UREA NITROGEN 5 mg/dL (7-17); GFR AFRICAN-AMERICAN > 60; GFR NON-AFRICAN AMERICAN > 60; MAGNESIUM 1.9 mg/dL (1.6-2.3)
[2017-05-18 07:01] LABS: BASO # 3.5 K/uL (0.0-0.2); BASO % 50.7 % (0.0-2.0); EOS # 0.1 K/uL (0.0-0.7); EOS % 1.2 % (0.0-4.0); HEMOGLOBIN 8.1 g/dL (11.0-16.0); LYMPH # 2.9 K/uL (1.0-4.3); LYMPH % 41.7 % (20.0-40.0); MEAN CELL VOLUME 80.7 fL (81.0-99.0); MEAN CORPUSCULAR HEMOGLOBIN 26.5 pg (27.0-31.0); MEAN CORPUSCULAR HGB CONC 32.8 g/dL (33.0-37.0); MEAN PLATELET VOLUME 8.9 fL (7.2-11.7); MONO % 0.7 % (0.0-10.0); NEUT # 0.4 K/uL (1.8-7.0); NEUT % 5.7 % (50.0-75.0); NRBC % 2.5 % (0.0-2.0); PLATELET COUNT 648 K/uL (130-400); RBC 3.07 Mil/uL (3.80-5.20); RED CELL DISTRIBUTION WIDTH 24.7 % (11.5-14.5); WHITE BLOOD COUNT 6.9 K/uL (4.8-10.8)
[2017-05-18] MEDS: Albuterol-Ipratrop 3 mg / 0.5 (3 ml) UD INH SCH ×4 (07:49→19:24)
[2017-05-18 08:13] LABS: ANISOCYTOSIS MODERATE; BANDS 8 % (0-2); BASOPHIL 2 % (0-2); EOSINOPHIL 4 % (0-4); LYMPHOCYTE 32 % (20-40); MONOCYTE 4 % (0-10); NEUTROPHIL 40 % (50-75); NUCLEATED RED BLOOD CELL 2 % (0-0); PLATELET ESTIMATE INCREASED (NORMAL); POIKILOCYTOSIS MODERATE; REACTIVE LYMPHOCYTES 10 % (0-0); TOTAL CELLS COUNTED 100
[2017-05-18 08:14] LABS: HYPOCHROMIC SLIGHT; MICROCYTOSIS SLIGHT; POLYCHROMIC SLIGHT
[2017-05-18 08:15] LABS: OVALOCYTES SLIGHT; SCHISTOCYTES SLIGHT; TARGET CELLS SLIGHT
[2017-05-18 08:16] LABS: ACANTHOCYTES SLIGHT; BURR CELLS SLIGHT; LARGE PLATELETS PRESENT; TEARDROP CELLS SLIGHT
[2017-05-18] MEDS: Sodium Chloride 0.9% 1,000 ML IV SCH ×2 (08:25→18:48)
[2017-05-18] MEDS: Potassium Chloride 20 mEq ER Tab PO SCH (10:59)
[2017-05-18] MEDS: Vancomycin 125 MG/5 ML SOLN (ORAL/RECTAL) PO SCH ×4 (10:59→21:21)
[2017-05-18] MEDS: methIMAzole 5 MG TAB PO SCH (10:59)
--- NOTE | 2017-05-18 15:46 | CP.PCM.PN ---
Subjective - Date & Time of Evaluation Date of Evaluation: 05/18/17 Time of Evaluation: 08:00 - Subjective Subjective: slow progress remains hyponatremic iv rx in progress less diarrhea Objective - Vital Signs/Intake and Output Vital Signs (last 24 hours): Temp Pulse Resp BP Pulse Ox 99.6 F 91 H 25 H 107/59 L 98 05/18/17 12:00 05/18/17 12:00 05/18/17 12:00 05/18/17 12:00 05/18/17 04:00 Intake and Output: 05/18/17 05/18/17 06:59 18:59 Intake Total 1300 1500 Output Total 1 500 Balance 1299 1000 - Medications Medications: Current Medications Albuterol/Ipratropium (Duoneb 3 Mg/0.5 Mg (3 Ml) Ud) 3 ml INH RQID [facility] Last Admin: 05/18/17 11:22 Dose: 3 ml Apixaban (Eliquis) 5 mg PO BID [facility] Last Admin: 05/18/17 10:59 Dose: 5 mg Famotidine (Pepcid) 20 mg PO DAILY [facility] Last Admin: 05/18/17 10:59 Dose: 20 mg Sodium Chloride (Sodium Chloride 0.9%) 1,000 mls @ 100 mls/hr IV .Q10H [facility] Last Admin: 05/18/17 08:25 Dose: 100 mls/hr Methimazole (Tapazole) 5 mg PO DAILY [facility] Last Admin: 05/18/17 10:59 Dose: 5 mg Potassium Chloride (K-Dur 20 Meq Er Tab) 20 meq PO DAILY [facility] Stop: 05/20/17 10:01 Last Admin: 05/18/17 10:59 Dose: 20 meq Vancomycin HCl (Vancocin (Oral Or Rectal Use)) 250 mg PO QID [facility] Last Admin: 05/18/17 14:40 Dose: 250 mg - Labs Labs: 05/18/17 06:38 05/18/17 06:38 - Constitutional Appears: Non-toxic, Chronically Ill - Head Exam Head Exam: NORMOCEPHALIC - Eye Exam Eye Exam: PERRL - ENT Exam ENT Exam: Mucous Membranes Dry - Neck Exam Neck Exam: absent: Lymphadenopathy - Respiratory Exam Respiratory Exam: Decreased Breath Sounds - Cardiovascular Exam Cardiovascular Exam: REGULAR RHYTHM - GI/Abdominal Exam GI & Abdominal Exam: Distended, Soft - Rectal Exam Rectal Exam: Deferred - Exam Exam: NORMAL INSPECTION - Extremities Exam Extremities Exam: absent: Pedal Edema - Back Exam Back Exam: absent: CVA tenderness (L), CVA tenderness (R) - Neurological Exam Neurological Exam: Alert, Awake, Oriented x3 Assessment and Plan (1) C. difficile colitis Status: Acute (2) Hyponatremia Status: Acute (3) Hypotension Status: Acute (4) Abnormal CT of liver Status: Acute (5) Dehydration Status: Acute (6) Myelodysplasia (myelodysplastic syndrome) Status: Acute
--- NOTE | 2017-05-18 17:37 | CP.PCM.PN ---
Subjective - Date & Time of Evaluation Date of Evaluation: 05/18/17 Time of Evaluation: 17:35 - Subjective Subjective: S: Feels better. C.o leg swollen. Objective - Vital Signs/Intake and Output Vital Signs (last 24 hours): Temp Pulse Resp BP Pulse Ox 99.7 F H 91 H 25 H 107/59 L 98 05/18/17 16:00 05/18/17 12:00 05/18/17 12:00 05/18/17 12:00 05/18/17 04:00 Intake and Output: 05/18/17 05/18/17 06:59 18:59 Intake Total 1300 1500 Output Total 1 500 Balance 1299 1000 - Medications Medications: Current Medications Albuterol/Ipratropium (Duoneb 3 Mg/0.5 Mg (3 Ml) Ud) 3 ml INH RQID [facility] Last Admin: 05/18/17 15:54 Dose: 3 ml Apixaban (Eliquis) 5 mg PO BID [facility] Last Admin: 05/18/17 17:08 Dose: 5 mg Famotidine (Pepcid) 20 mg PO DAILY [facility] Last Admin: 05/18/17 10:59 Dose: 20 mg Sodium Chloride (Sodium Chloride 0.9%) 1,000 mls @ 70 mls/hr IV .[id number] [facility] Methimazole (Tapazole) 5 mg PO DAILY [facility] Last Admin: 05/18/17 10:59 Dose: 5 mg Potassium Chloride (K-Dur 20 Meq Er Tab) 20 meq PO DAILY [facility] Stop: 05/20/17 10:01 Last Admin: 05/18/17 10:59 Dose: 20 meq Vancomycin HCl (Vancocin (Oral Or Rectal Use)) 250 mg PO QID [facility] Last Admin: 05/18/17 17:08 Dose: 250 mg - Labs Labs: 05/18/17 06:38 05/18/17 06:38 - Constitutional Appears: Chronically Ill - Head Exam Head Exam: NORMAL INSPECTION - Eye Exam Eye Exam: Normal appearance - ENT Exam ENT Exam: Normal Exam - Neck Exam Neck Exam: Normal Inspection - Respiratory Exam Respiratory Exam: NORMAL BREATHING PATTERN - Cardiovascular Exam Cardiovascular Exam: REGULAR RHYTHM - GI/Abdominal Exam GI & Abdominal Exam: Soft - Rectal Exam Rectal Exam: Deferred - Extremities Exam Extremities Exam: Pedal Edema - Neurological Exam Neurological Exam: Alert Assessment and Plan (1) C. difficile colitis Status: Acute (2) Hypotension Status: Acute (3) History of pulmonary embolism Status: Chronic - Assessment and Plan (Free Text) Assessment: A/p IV lasix 20 mg 1 dose. Check CMP and CBC am.
[2017-05-19] MEDS: Albuterol-Ipratrop 3 mg / 0.5 (3 ml) UD INH SCH ×3 (07:20→20:23)
[2017-05-19] MEDS: Sodium Chloride 0.9% 1,000 ML IV SCH ×2 (07:28→10:52)
--- NOTE | 2017-05-19 09:38 | CP.PCM.PN ---
Subjective - Date & Time of Evaluation Date of Evaluation: 05/19/17 Time of Evaluation: 09:55 - Subjective Subjective: Pt no complain; (+) still soft stool, cough is gone No CP, no SOB, no edema, no n/v Objective - Vital Signs/Intake and Output Vital Signs (last 24 hours): Temp Pulse Resp BP Pulse Ox 99 F 86 18 112/67 97 05/19/17 04:00 05/19/17 04:00 05/19/17 04:00 05/19/17 04:00 05/19/17 00:00 Intake and Output: 05/19/17 05/19/17 06:59 18:59 Intake Total 1150 Output Total 750 Balance 400 - Medications Medications: Current Medications Albuterol/Ipratropium (Duoneb 3 Mg/0.5 Mg (3 Ml) Ud) 3 ml INH RQID [facility] Last Admin: 05/19/17 07:20 Dose: 3 ml Apixaban (Eliquis) 5 mg PO BID [facility] Last Admin: 05/18/17 17:08 Dose: 5 mg Famotidine (Pepcid) 20 mg PO DAILY [facility] Last Admin: 05/18/17 10:59 Dose: 20 mg Sodium Chloride (Sodium Chloride 0.9%) 1,000 mls @ 70 mls/hr IV .[id number] [facility] Last Admin: 05/19/17 07:28 Dose: Not Given Methimazole (Tapazole) 5 mg PO DAILY [facility] Last Admin: 05/18/17 10:59 Dose: 5 mg Potassium Chloride (K-Dur 20 Meq Er Tab) 20 meq PO DAILY [facility] Stop: 05/20/17 10:01 Last Admin: 05/18/17 10:59 Dose: 20 meq Vancomycin HCl (Vancocin (Oral Or Rectal Use)) 250 mg PO QID [facility] Last Admin: 05/18/17 21:21 Dose: 250 mg - Labs Labs: 05/18/17 06:38 05/18/17 06:38 - Eye Exam Eye Exam: Normal appearance - ENT Exam ENT Exam: Mucous Membranes Moist - Neck Exam Neck Exam: Full ROM, Normal Inspection. absent: Lymphadenopathy, Thyromegaly - Respiratory Exam Respiratory Exam: Clear to Ausculation Bilateral. absent: Rales, Rhonchi, Wheezes - Cardiovascular Exam Cardiovascular Exam: REGULAR RHYTHM, +S1, +S2. absent: Gallop, JVD - GI/Abdominal Exam GI & Abdominal Exam: Soft. absent: Tenderness, Mass - Extremities Exam Extremities Exam: Full ROM, Normal Capillary Refill. absent: Calf Tenderness, Joint Swelling Assessment and Plan - Assessment and Plan (Free Text) Plan: C diff colitis; Hyponatremia Recent PE; MDS Ac Bronchitis - improve Stop Neb tX; cont all other meds Encourage to ambulat
[2017-05-19] MEDS: methIMAzole 5 MG TAB PO SCH (10:48)
[2017-05-19] MEDS: Potassium Chloride 20 mEq ER Tab PO SCH (10:49)
[2017-05-19] MEDS: Vancomycin 125 MG/5 ML SOLN (ORAL/RECTAL) PO SCH ×4 (10:52→21:25)
[2017-05-20] MEDS: Sodium Chloride 0.9% 1,000 ML IV SCH (00:15)
[2017-05-20] MEDS: Albuterol-Ipratrop 3 mg / 0.5 (3 ml) UD INH SCH ×4 (01:15→21:00)
[2017-05-20 06:18] LABS: HEMOGLOBIN 8.2 g/dL (11.0-16.0); MEAN CELL VOLUME 79.5 fL (81.0-99.0); MEAN CORPUSCULAR HEMOGLOBIN 25.8 pg (27.0-31.0); MEAN CORPUSCULAR HGB CONC 32.5 g/dL (33.0-37.0); MEAN PLATELET VOLUME 8.8 fL (7.2-11.7); RBC 3.18 Mil/uL (3.80-5.20); RED CELL DISTRIBUTION WIDTH 25.2 % (11.5-14.5); WHITE BLOOD COUNT 6.4 K/uL (4.8-10.8)
[2017-05-20 06:44] LABS: BLOOD UREA NITROGEN 2 mg/dL (7-17); CALCIUM 6.9 mg/dl (8.6-10.4); GFR AFRICAN-AMERICAN > 60; GFR NON-AFRICAN AMERICAN > 60; MAGNESIUM 1.7 mg/dL (1.6-2.3)
--- NOTE | 2017-05-20 09:13 | CP.PCM.PN ---
Subjective - Date & Time of Evaluation Date of Evaluation: 05/20/17 Time of Evaluation: 08:45 - Subjective Subjective: Pt (+) edema on arms and leg. Stool is soft No CP, no SOB, no palpitation, no cough Objective - Vital Signs/Intake and Output Vital Signs (last 24 hours): Temp Pulse Resp BP Pulse Ox 98 F 80 19 112/57 L 98 05/20/17 08:00 05/20/17 04:00 05/20/17 04:00 05/20/17 04:00 05/20/17 04:00 Intake and Output: 05/20/17 05/20/17 06:59 18:59 Intake Total 1010 Output Total 800 Balance 210 - Medications Medications: Current Medications Albuterol/Ipratropium (Duoneb 3 Mg/0.5 Mg (3 Ml) Ud) 3 ml INH RQ6 [facility] Last Admin: 05/20/17 07:45 Dose: 3 ml Apixaban (Eliquis) 5 mg PO BID [facility] Last Admin: 05/19/17 18:45 Dose: 5 mg Famotidine (Pepcid) 20 mg PO DAILY [facility] Last Admin: 05/19/17 10:48 Dose: 20 mg Furosemide (Lasix) 20 mg IVP STAT [facility] Stop: 05/20/17 09:09 Methimazole (Tapazole) 5 mg PO DAILY [facility] Last Admin: 05/19/17 10:48 Dose: 5 mg Potassium Chloride (K-Dur 20 Meq Er Tab) 20 meq PO DAILY [facility] Stop: 05/20/17 10:01 Last Admin: 05/19/17 10:49 Dose: 20 meq Vancomycin HCl (Vancocin (Oral Or Rectal Use)) 250 mg PO QID [facility] Last Admin: 05/19/17 21:25 Dose: 250 mg - Labs Labs: 05/20/17 06:12 05/20/17 06:12 - Constitutional Appears: No Acute Distress - Eye Exam Eye Exam: Normal appearance - ENT Exam ENT Exam: Mucous Membranes Moist - Neck Exam Neck Exam: Full ROM. absent: Lymphadenopathy, Thyromegaly - Respiratory Exam Respiratory Exam: Clear to Ausculation Bilateral. absent: Rales, Rhonchi, Wheezes - Cardiovascular Exam Cardiovascular Exam: +S1, +S2, Murmur. absent: Gallop, JVD, RRR - GI/Abdominal Exam GI & Abdominal Exam: Soft. absent: Tenderness - Extremities Exam Extremities Exam: Full ROM, Normal Capillary Refill, Pedal Edema. absent: Calf Tenderness, Joint Swelling Assessment and Plan - Assessment and Plan (Free Text) Assessment: Hyponatremia w/ edema; C diff colitis, Hypokalemia Hyperthyroidism; recent PE Stop IVF; Lasix x 1 Cont meds/ supportive care
[2017-05-20] MEDS: methIMAzole 5 MG TAB PO SCH (09:33)
[2017-05-20] MEDS: Potassium Chloride 20 mEq ER Tab PO SCH (09:33)
[2017-05-20] MEDS: Vancomycin 125 MG/5 ML SOLN (ORAL/RECTAL) PO SCH ×4 (09:34→21:08)
[2017-05-21] MEDS: Albuterol-Ipratrop 3 mg / 0.5 (3 ml) UD INH SCH ×4 (01:36→21:33)
--- NOTE | 2017-05-21 09:02 | CP.PCM.PN ---
Subjective - Date & Time of Evaluation Date of Evaluation: 05/21/17 Time of Evaluation: 08:45 - Subjective Subjective: Pt no more complain; BM is soft & much less Walk with daughter at corridor yesterday as per pt. No CP, no SOB, decrease edema, no cough, no palpitation, no n/v Objective - Vital Signs/Intake and Output Vital Signs (last 24 hours): Temp Pulse Resp BP Pulse Ox 97.9 F 80 18 119/70 99 05/21/17 08:50 05/21/17 08:50 05/21/17 08:50 05/21/17 08:50 05/21/17 08:50 - Medications Medications: Current Medications Albuterol/Ipratropium (Duoneb 3 Mg/0.5 Mg (3 Ml) Ud) 3 ml INH RQ6 [facility] Last Admin: 05/21/17 07:30 Dose: 3 ml Apixaban (Eliquis) 5 mg PO BID [facility] Last Admin: 05/20/17 17:29 Dose: 5 mg Famotidine (Pepcid) 20 mg PO DAILY [facility] Last Admin: 05/20/17 09:33 Dose: 20 mg Methimazole (Tapazole) 5 mg PO DAILY [facility] Last Admin: 05/20/17 09:33 Dose: 5 mg Vancomycin HCl (Vancocin (Oral Or Rectal Use)) 250 mg PO QID [facility] Last Admin: 05/20/17 21:08 Dose: 250 mg - Labs Labs: 05/20/17 06:12 05/20/17 06:12 - Constitutional Appears: No Acute Distress - Eye Exam Eye Exam: Normal appearance - ENT Exam ENT Exam: Mucous Membranes Moist - Neck Exam Neck Exam: Full ROM, Normal Inspection. absent: Lymphadenopathy, Thyromegaly - Respiratory Exam Respiratory Exam: Decreased Breath Sounds. absent: Rales, Rhonchi, Wheezes - Cardiovascular Exam Cardiovascular Exam: +S1, +S2, Murmur. absent: Gallop, REGULAR RHYTHM - GI/Abdominal Exam GI & Abdominal Exam: Soft. absent: Tenderness, Mass - Extremities Exam Extremities Exam: Full ROM, Normal Capillary Refill, Pedal Edema. absent: Calf Tenderness, Joint Swelling Assessment and Plan - Assessment and Plan (Free Text) Assessment: Edema; Hyponatremia Hyperthyroidism; Recent PE Mylodysplastic syndrome Cont meds Lasix x 1 today for discharge if has Vanco in OPD
[2017-05-21] MEDS: Vancomycin 125 MG/5 ML SOLN (ORAL/RECTAL) PO SCH (09:24)
[2017-05-21] MEDS: methIMAzole 5 MG TAB PO SCH (09:25)
[2017-05-21 09:27] LABS: ALB/GLOB RATIO 0.7 (1.0-2.1); ALBUMIN 2.1 g/dL (3.5-5.0); ALT/SGPT 27 U/L (9-52); AST/SGOT 15 U/L (14-36); BLOOD UREA NITROGEN 4 mg/dL (7-17); CALCIUM 6.9 mg/dl (8.6-10.4); GFR AFRICAN-AMERICAN > 60; GFR NON-AFRICAN AMERICAN > 60
--- NOTE | 2017-05-21 12:14 | CP.PCM.CON ---
History of Present Illness - History of Present Illness History of Present Illness: 76 yo woman known to me with history of MDS(refractory anemia with excess blasts ), admitted with generalized weakness, severe diarrhea, found to have C.diff colitis. Had low grade temp today. The patient currently feels better, c/o some pain left lower quadrant of the abdomen, denies nausea, vomiting. She is using O2 via a nasal canula, doesn't seem SOB. Past Patient History - Infectious Disease Hx of Infectious Diseases: None - Past Medical History & Family History Past Medical History?: Yes - Past Social History Smoking Status: Never Smoked - CARDIAC Hx Cardiac Disorders: Yes Hx Hypercholesterolemia: Yes Hx Hypertension: Yes - PULMONARY Hx Respiratory Disorders: Yes Hx Pneumonia: Yes - NEUROLOGICAL Hx Neurological Disorder: No - HEENT Hx HEENT Problems: No - RENAL Hx Chronic Kidney Disease: No - ENDOCRINE/METABOLIC Hx Endocrine Disorders: Yes Hx Hyperthyroidism: Yes Hx Hypothyroidism: Yes - HEMATOLOGICAL/ONCOLOGICAL Hx Blood Disorders: Yes Hx Anemia: Yes Hx Blood Transfusions: Yes Hx Blood Transfusion Reaction: No Other/Comment: MDS- MYELODYSPLASTIC SYNDROME - INTEGUMENTARY Hx Dermatological Problems: No - MUSCULOSKELETAL/RHEUMATOLOGICAL Hx Musculoskeletal Disorders: Yes Hx Falls: Yes - GASTROINTESTINAL Hx Gastrointestinal Disorders: Yes Hx Gastritis: Yes - GENITOURINARY/GYNECOLOGICAL Hx Genitourinary Disorders: No - PSYCHIATRIC Hx Psychophysiologic Disorder: No Hx Substance Use: No - SURGICAL HISTORY Hx Surgeries: No - ANESTHESIA Hx Anesthesia: No Hx Anesthesia Reactions: No Hx Malignant Hyperthermia: No Has any member of the family had a problem w/ anesthesia?: No Meds Allergies/Adverse Reactions: Allergies Allergy/AdvReac Type Severity Reaction Status Date / Time No Known Allergies Allergy Verified 05/14/17 16:14 - Medications Medications: Current Medications Albuterol/Ipratropium (Duoneb 3 Mg/0.5 Mg (3 Ml) Ud) 3 ml INH RQ6 [facility] Last Admin: 05/21/17 07:30 Dose: 3 ml Apixaban (Eliquis) 5 mg PO BID [facility] Last Admin: 05/21/17 09:25 Dose: 5 mg Famotidine (Pepcid) 20 mg PO DAILY [facility] Last Admin: 05/21/17 09:25 Dose: 20 mg Methimazole (Tapazole) 5 mg PO DAILY [facility] Last Admin: 05/21/17 09:25 Dose: 5 mg Results - Vital Signs Recent Vital Signs: Last Vital Signs Temp 97.9 F 05/21/17 08:50 Pulse 80 05/21/17 08:50 Resp 18 05/21/17 08:50 BP 119/70 05/21/17 08:50 Pulse Ox 99 05/21/17 08:50 - Labs Result Diagrams: 05/20/17 06:12 05/21/17 08:26 Labs: Laboratory Results - last 24 hr 05/21/17 08:26 Sodium 123 L Potassium 3.7 Chloride 91 L Carbon Dioxide 30 Anion Gap 6 L BUN 4 L Creatinine 0.5 L Est GFR ( Amer) > 60 Est GFR (Non-Af Amer) > 60 Random Glucose 89 Calcium 6.9 L Total Bilirubin 0.6 AST 15 ALT 27 Alkaline Phosphatase 41 Total Protein 4.9 L Albumin 2.1 L Globulin 2.9 Albumin/Globulin Ratio 0.7 L Assessment & Plan (1) Myelodysplasia (myelodysplastic syndrome) Assessment and Plan: 76 yo woman with recently diagnosed with Refractory anemia with excess blasts, unable to tolerate even low dose Revlimid, has had several admissions for anemia , pneumonia,cellulitis, now with diarrhea secondary to C.difficile colitis, currently better. Plan- Will give her the Procrit today, do not think she will tolerate restarting the Revlimid yet. PRN transfusuion. Status: Acute
[2017-05-21] MEDS: EPOETIN ALFA 10,000 UNIT/ML ML SC SCH (13:45)
--- NOTE | 2017-05-21 16:31 | CP.PCM.PN ---
Subjective - Date & Time of Evaluation Date of Evaluation: 05/21/17 Time of Evaluation: 07:00 - Subjective Subjective: less diarrhea no fever no chest pain less leg swelling Objective - Vital Signs/Intake and Output Vital Signs (last 24 hours): Temp Pulse Resp BP Pulse Ox 101.6 F H 94 H 20 122/71 97 05/21/17 16:08 05/21/17 15:00 05/21/17 15:00 05/21/17 15:00 05/21/17 15:00 - Medications Medications: Current Medications Albuterol/Ipratropium (Duoneb 3 Mg/0.5 Mg (3 Ml) Ud) 3 ml INH RQ6 [facility] Last Admin: 05/21/17 13:09 Dose: 3 ml Apixaban (Eliquis) 5 mg PO BID [facility] Last Admin: 05/21/17 09:25 Dose: 5 mg Epoetin Woody (Procrit) 10,000 unit SC MWF [facility] Stop: 05/26/17 09:01 Last Admin: 05/21/17 13:45 Dose: 10,000 unit Famotidine (Pepcid) 20 mg PO DAILY [facility] Last Admin: 05/21/17 09:25 Dose: 20 mg Methimazole (Tapazole) 5 mg PO DAILY [facility] Last Admin: 05/21/17 09:25 Dose: 5 mg - Labs Labs: 05/20/17 06:12 05/21/17 08:26 - Constitutional Appears: Non-toxic, Chronically Ill - Head Exam Head Exam: NORMOCEPHALIC - Eye Exam Eye Exam: PERRL. absent: Scleral icterus - ENT Exam ENT Exam: Mucous Membranes Dry - Neck Exam Neck Exam: absent: Lymphadenopathy - Respiratory Exam Respiratory Exam: Decreased Breath Sounds - Cardiovascular Exam Cardiovascular Exam: REGULAR RHYTHM - GI/Abdominal Exam GI & Abdominal Exam: Distended, Soft, Tenderness Assessment and Plan (1) C. difficile colitis Status: Acute (2) Hyponatremia Status: Acute (3) Hypotension Status: Acute (4) Abnormal CT of liver Status: Acute (5) Dehydration Status: Acute (6) Myelodysplasia (myelodysplastic syndrome) Status: Acute
[2017-05-21 20:43] LABS: ALB/GLOB RATIO 0.7 (1.0-2.1); ALBUMIN 2.1 g/dL (3.5-5.0); ALT/SGPT 23 U/L (9-52); AST/SGOT 20 U/L (14-36); BLOOD UREA NITROGEN 7 mg/dL (7-17); CALCIUM 6.9 mg/dl (8.6-10.4); GFR AFRICAN-AMERICAN > 60; GFR NON-AFRICAN AMERICAN > 60
[2017-05-22] MEDS: Albuterol-Ipratrop 3 mg / 0.5 (3 ml) UD INH SCH ×4 (01:38→20:12)
--- NOTE | 2017-05-22 09:10 | CP.PCM.PN ---
Subjective - Date & Time of Evaluation Date of Evaluation: 05/22/17 Time of Evaluation: 08:55 - Subjective Subjective: Pt feels well. Had spike c/o fever of 101.6 Denies cough, no CP, no SOB, (+) Stil w/ edema (+) Has Left abdominal pain, cramps but intermittent Objective - Vital Signs/Intake and Output Vital Signs (last 24 hours): Temp Pulse Resp BP Pulse Ox 98.2 F 71 18 104/62 95 05/22/17 07:35 05/22/17 07:35 05/22/17 07:35 05/22/17 07:35 05/22/17 07:35 Intake and Output: 05/22/17 05/22/17 06:59 18:59 Intake Total 240 Balance 240 - Medications Medications: Current Medications Albuterol/Ipratropium (Duoneb 3 Mg/0.5 Mg (3 Ml) Ud) 3 ml INH RQ6 [facility] Last Admin: 05/22/17 07:31 Dose: 3 ml Apixaban (Eliquis) 5 mg PO BID [facility] Last Admin: 05/21/17 17:41 Dose: 5 mg Dicyclomine HCl (Bentyl) 10 mg PO TID [facility] Stop: 05/23/17 23:59 Epoetin Woody (Procrit) 10,000 unit SC MWF [facility] Stop: 05/26/17 09:01 Last Admin: 05/21/17 13:45 Dose: 10,000 unit Famotidine (Pepcid) 20 mg PO DAILY [facility] Last Admin: 05/21/17 09:25 Dose: 20 mg Furosemide (Lasix) 20 mg PO STAT [facility] Stop: 05/22/17 09:05 Methimazole (Tapazole) 5 mg PO DAILY [facility] Last Admin: 05/21/17 09:25 Dose: 5 mg Potassium Chloride (K-Dur 20 Meq Er Tab) 20 meq PO BID [facility] Stop: 05/23/17 23:59 - Labs Labs: 05/20/17 06:12 05/21/17 20:16 - Constitutional Appears: No Acute Distress - Eye Exam Eye Exam: Normal appearance - ENT Exam ENT Exam: Mucous Membranes Moist - Respiratory Exam Respiratory Exam: Decreased Breath Sounds. absent: Rales, Rhonchi, Wheezes - Cardiovascular Exam Cardiovascular Exam: +S1, +S2. absent: Gallop, REGULAR RHYTHM, JVD - GI/Abdominal Exam GI & Abdominal Exam: Soft. absent: Guarding, Tenderness, Mass - Extremities Exam Extremities Exam: Calf Tenderness, Normal Capillary Refill, Pedal Edema. absent : Joint Swelling Assessment and Plan - Assessment and Plan (Free Text) Assessment: C Diff colitis; Hypokalemia Abd cramps; fever Recent PE, Hyperthyroidism, MDS ID and Alejandro note reviewed and appreciated Lasix x 1 again and K supplement Bentyl x 2 days
[2017-05-22] MEDS: Potassium Chloride 20 mEq/15 ml LIQ UD PO SCH ×2 (11:22→18:07)
[2017-05-22] MEDS: methIMAzole 5 MG TAB PO SCH (11:22)
[2017-05-22 11:23] LABS: HEMOGLOBIN 7.9 g/dL (11.0-16.0); MEAN CORPUSCULAR HEMOGLOBIN 26.1 pg (27.0-31.0); MEAN CORPUSCULAR HGB CONC 32.6 g/dL (33.0-37.0); RBC 3.02 Mil/uL (3.80-5.20); RED CELL DISTRIBUTION WIDTH 24.9 % (11.5-14.5); WHITE BLOOD COUNT 6.4 K/uL (4.8-10.8)
[2017-05-22 11:51] LABS: ALBUMIN 2.2 g/dL (3.5-5.0); ALT/SGPT 24 U/L (9-52); AST/SGOT 23 U/L (14-36); BLOOD UREA NITROGEN 6 mg/dL (7-17); GFR AFRICAN-AMERICAN > 60; GFR NON-AFRICAN AMERICAN > 60; MAGNESIUM 1.8 mg/dL (1.6-2.3)
[2017-05-22 12:05] LABS: EOS # 0.1 K/uL (0.0-0.7); LYMPH # 0.9 K/uL (1.0-4.3); MONO # 0.4 K/uL (0.0-0.8); NEUT # 4.9 K/uL (1.8-7.0)
[2017-05-22 12:08] LABS: ALB/GLOB RATIO 0.7 (1.0-2.1)
--- NOTE | 2017-05-22 19:22 | CP.PCM.PN ---
Subjective - Date & Time of Evaluation Date of Evaluation: 05/22/17 Time of Evaluation: 19:19 - Subjective Subjective: The patient says she is feeling well, no cough, SOB, diarrhea much improved, spiked a temp this evening of 101.5, with some drop in HGB again. The patient is anxious to go home. Objective - Vital Signs/Intake and Output Vital Signs (last 24 hours): Temp Pulse Resp BP Pulse Ox 101.5 F H 102 H 20 112/61 96 05/22/17 16:37 05/22/17 16:27 05/22/17 16:27 05/22/17 16:27 05/22/17 16:27 Intake and Output: 05/22/17 05/23/17 18:59 06:59 Intake Total 740 Balance 740 - Medications Medications: Current Medications Albuterol/Ipratropium (Duoneb 3 Mg/0.5 Mg (3 Ml) Ud) 3 ml INH RQ6 [facility] Last Admin: 05/22/17 13:19 Dose: 3 ml Apixaban (Eliquis) 5 mg PO BID [facility] Last Admin: 05/22/17 18:07 Dose: 5 mg Dicyclomine HCl (Bentyl) 10 mg PO BID [facility] Stop: 05/23/17 23:59 Last Admin: 05/22/17 18:07 Dose: 10 mg Epoetin Woody (Procrit) 10,000 unit SC MWF [facility] Stop: 05/26/17 09:01 Last Admin: 05/21/17 13:45 Dose: 10,000 unit Famotidine (Pepcid) 20 mg PO DAILY [facility] Last Admin: 05/22/17 11:22 Dose: 20 mg Methimazole (Tapazole) 5 mg PO DAILY [facility] Last Admin: 05/22/17 11:22 Dose: 5 mg Potassium Chloride (Potassium Chloride Oral Soln) 20 meq PO BID [facility] Stop: 05/23/17 23:59 Last Admin: 05/22/17 18:07 Dose: 20 meq - Labs Labs: 05/22/17 10:50 05/22/17 10:50 Assessment and Plan (1) Myelodysplasia (myelodysplastic syndrome) Assessment & Plan: MDS with recurrent drop in HGB with fever, have explained to patient that if she becomes afebrile and remains so tomorrow, she may go home tomorrow after the transfusion from a heme standpoint. Will discuss this with the daughter as well Status: Acute
[2017-05-23] MEDS: Albuterol-Ipratrop 3 mg / 0.5 (3 ml) UD INH SCH ×4 (01:15→19:45)
--- NOTE | 2017-05-23 08:29 | CP.PCM.PN ---
Subjective - Date & Time of Evaluation Date of Evaluation: 05/23/17 Time of Evaluation: 08:05 - Subjective Subjective: Pt feels well, had transfusion but spike fever of 101.9 Min cough but no mucus, no CP, no SOB, no palpitation Objective - Vital Signs/Intake and Output Vital Signs (last 24 hours): Temp Pulse Resp BP Pulse Ox 101.9 F H 99 H 18 147/75 94 L 05/23/17 07:25 05/23/17 07:25 05/23/17 07:25 05/23/17 07:25 05/23/17 07:25 Intake and Output: 05/23/17 05/23/17 06:59 18:59 Intake Total 650 Balance 650 - Medications Medications: Current Medications Acetaminophen (Tylenol 325mg Tab) 325 mg PO Q4 [facility] Albuterol/Ipratropium (Duoneb 3 Mg/0.5 Mg (3 Ml) Ud) 3 ml INH RQ6 [facility] Last Admin: 05/23/17 01:15 Dose: Not Given Apixaban (Eliquis) 5 mg PO BID [facility] Last Admin: 05/22/17 18:07 Dose: 5 mg Dicyclomine HCl (Bentyl) 10 mg PO BID [facility] Stop: 05/23/17 23:59 Last Admin: 05/22/17 18:07 Dose: 10 mg Epoetin Woody (Procrit) 10,000 unit SC MWF [facility] Stop: 05/26/17 09:01 Last Admin: 05/21/17 13:45 Dose: 10,000 unit Famotidine (Pepcid) 20 mg PO DAILY [facility] Last Admin: 05/22/17 11:22 Dose: 20 mg Methimazole (Tapazole) 5 mg PO DAILY [facility] Last Admin: 05/22/17 11:22 Dose: 5 mg Potassium Chloride (Potassium Chloride Oral Soln) 20 meq PO BID [facility] Stop: 05/23/17 23:59 Last Admin: 05/22/17 18:07 Dose: 20 meq Vancomycin HCl (Vancocin (Oral Or Rectal Use)) 250 mg PO QID [facility] - Labs Labs: 05/22/17 10:50 05/22/17 10:50 - Constitutional Appears: No Acute Distress - Eye Exam Eye Exam: Normal appearance - ENT Exam ENT Exam: Mucous Membranes Moist - Neck Exam Neck Exam: Full ROM, Normal Inspection. absent: Lymphadenopathy - Respiratory Exam Respiratory Exam: Decreased Breath Sounds. absent: Rales, Rhonchi, Wheezes - Cardiovascular Exam Cardiovascular Exam: REGULAR RHYTHM, +S1, +S2, Murmur. absent: Gallop, JVD - GI/Abdominal Exam GI & Abdominal Exam: Soft. absent: Tenderness, Mass - Extremities Exam Extremities Exam: Full ROM, Normal Capillary Refill. absent: Calf Tenderness, Joint Swelling, Pedal Edema Assessment and Plan - Assessment and Plan (Free Text) Assessment: Fever ? infectious or hematologic Recent Pulm embolism; Hyperthyroidism. Myelodysplastic Syndrome Tylenol/ for repeat CXR For discharge if okay w/ ID
--- NOTE | 2017-05-23 09:23 | RAD ---
HISTORY: Fever COMPARISON: 04/21/2017. FINDINGS: LUNGS: There is mild pulmonary venous congestion. No focal consolidation. PLEURA: Blunting of both costophrenic angles, no pneumothorax apparent. CARDIOVASCULAR: Normal. OSSEOUS STRUCTURES: No significant abnormalities. VISUALIZED UPPER ABDOMEN: Normal. OTHER FINDINGS: None. IMPRESSION: Mild pulmonary venous congestion. No lobar pneumonia. Blunting of both costophrenic angles which may represent small pleural effusions.
[2017-05-23] MEDS: Vancomycin 125 MG/5 ML SOLN (ORAL/RECTAL) PO SCH ×4 (10:20→22:31)
[2017-05-23] MEDS: methIMAzole 5 MG TAB PO SCH (10:20)
[2017-05-23] MEDS: EPOETIN ALFA 10,000 UNIT/ML ML SC SCH (10:20)
[2017-05-23] MEDS: Potassium Chloride 20 mEq/15 ml LIQ UD PO SCH ×2 (10:20→18:21)
[2017-05-23 11:01] LABS: SQUAMOUS EPITHIAL 2 /hpf (0-5); URINE BILIRUBIN NEGATIVE (NEGATIVE); URINE BLOOD NEGATIVE (NEGATIVE); URINE CLARITY Clear (Clear); URINE COLOR Yellow (YELLOW); URINE GLUCOSE (UA) NORMAL (Normal); URINE LEUKOCYTE ESTERASE NEG Leu/uL (Negative); URINE NITRATE NEGATIVE (NEGATIVE); URINE PROTEIN NEGATIVE (NEGATIVE); URINE UROBILINOGEN NORMAL mg/dL (0.2-1.0)
[2017-05-23 11:36] LABS: BASO % 0.3 % (0.0-2.0); EOS # 0.3 K/uL (0.0-0.7); HEMOGLOBIN 9.7 g/dL (11.0-16.0); LYMPH # 0.4 K/uL (1.0-4.3); LYMPH % 4.3 % (20.0-40.0); MEAN CELL VOLUME 81.9 fL (81.0-99.0); MEAN CORPUSCULAR HEMOGLOBIN 27.6 pg (27.0-31.0); MEAN CORPUSCULAR HGB CONC 33.7 g/dL (33.0-37.0); MEAN PLATELET VOLUME 8.7 fL (7.2-11.7); MONO # 0.2 K/uL (0.0-0.8); MONO % 2.3 % (0.0-10.0); NEUT # 7.7 K/uL (1.8-7.0); NEUT % 90.1 % (50.0-75.0); NRBC % 0.3 % (0.0-2.0); PLATELET COUNT 478 K/uL (130-400); RED CELL DISTRIBUTION WIDTH 20.8 % (11.5-14.5); WHITE BLOOD COUNT 8.6 K/uL (4.8-10.8)
[2017-05-23 11:50] LABS: ALB/GLOB RATIO 0.7 (1.0-2.1); ALBUMIN 2.3 g/dL (3.5-5.0); ALT/SGPT 20 U/L (9-52); AST/SGOT 20 U/L (14-36); BLOOD UREA NITROGEN 5 mg/dL (7-17); CALCIUM 7.2 mg/dl (8.6-10.4); GFR AFRICAN-AMERICAN > 60; GFR NON-AFRICAN AMERICAN > 60
[2017-05-23 12:07] LABS: ANISOCYTOSIS MODERATE; BANDS 2 % (0-2); BASOPHIL 1 % (0-2); EOSINOPHIL 1 % (0-4); LYMPHOCYTE 7 % (20-40); MONOCYTE 5 % (0-10); NEUTROPHIL 84 % (50-75); OVALOCYTES SLIGHT; PLATELET ESTIMATE SLIGHTLY INCREASED (NORMAL); POIKILOCYTOSIS SLIGHT; SCHISTOCYTES SLIGHT; TOTAL CELLS COUNTED 100
[2017-05-23] MEDS: metroNIDAZOLE IV 500 mg/100 ml 500 MG/100 ML BAG IVPB SCH ×2 (14:15→21:31)
--- NOTE | 2017-05-23 19:22 | CP.PCM.PN ---
Subjective - Date & Time of Evaluation Date of Evaluation: 05/23/17 Time of Evaluation: 10:00 - Subjective Subjective: pharmacy stopped po vanco yesterday and pt woke up with fever and lbm consider regranex and IV IG if ok with heme poor prognosis Objective - Vital Signs/Intake and Output Vital Signs (last 24 hours): Temp Pulse Resp BP Pulse Ox 98.1 F 96 H 18 119/63 94 L 05/23/17 15:30 05/23/17 15:30 05/23/17 15:30 05/23/17 15:30 05/23/17 07:25 Intake and Output: 05/23/17 05/24/17 18:59 06:59 Intake Total 760 Balance 760 - Medications Medications: Current Medications Acetaminophen (Tylenol 325mg Tab) 325 mg PO Q4 PRN PRN Reason: FOR FEVER Last Admin: 05/23/17 08:46 Dose: 325 mg Albuterol/Ipratropium (Duoneb 3 Mg/0.5 Mg (3 Ml) Ud) 3 ml INH RQ6 [facility] Last Admin: 05/23/17 13:42 Dose: 3 ml Apixaban (Eliquis) 5 mg PO BID [facility] Last Admin: 05/23/17 18:20 Dose: 5 mg Dicyclomine HCl (Bentyl) 10 mg PO BID [facility] Stop: 05/23/17 23:59 Last Admin: 05/23/17 18:20 Dose: 10 mg Epoetin Woody (Procrit) 10,000 unit SC MWF [facility] Stop: 05/26/17 09:01 Last Admin: 05/23/17 10:20 Dose: 10,000 unit Famotidine (Pepcid) 20 mg PO DAILY [facility] Last Admin: 05/23/17 10:20 Dose: 20 mg Metronidazole (Flagyl) 500 mg in 100 mls @ 100 mls/hr IVPB Q8 [facility] Last Admin: 05/23/17 14:15 Dose: 100 mls/hr Methimazole (Tapazole) 5 mg PO DAILY [facility] Last Admin: 05/23/17 10:20 Dose: 5 mg Potassium Chloride (Potassium Chloride Oral Soln) 20 meq PO BID [facility] Stop: 05/23/17 23:59 Last Admin: 05/23/17 18:21 Dose: 20 meq Vancomycin HCl (Vancocin (Oral Or Rectal Use)) 250 mg PO QID [facility] Last Admin: 05/23/17 18:21 Dose: 250 mg - Labs Labs: 05/23/17 11:19 05/23/17 11:19 - Constitutional Appears: Toxic, Cachectic, Chronically Ill - Head Exam Head Exam: NORMOCEPHALIC - Eye Exam Eye Exam: PERRL - ENT Exam ENT Exam: Normal External Ear Exam - Neck Exam Neck Exam: absent: Lymphadenopathy - Respiratory Exam Respiratory Exam: Decreased Breath Sounds - Cardiovascular Exam Cardiovascular Exam: REGULAR RHYTHM - GI/Abdominal Exam GI & Abdominal Exam: Distended, Soft Assessment and Plan (1) C. difficile colitis Status: Acute (2) Hyponatremia Status: Acute (3) Hypotension Status: Acute (4) Abnormal CT of liver Status: Acute (5) Dehydration Status: Acute (6) Myelodysplasia (myelodysplastic syndrome) Status: Acute
[2017-05-24 00:54] VITALS: RESP 20
[2017-05-24] MEDS: Albuterol-Ipratrop 3 mg / 0.5 (3 ml) UD INH SCH ×3 (01:48→14:18)
--- NOTE | 2017-05-24 04:15 | CP.PCM.PN ---
Subjective - Date & Time of Evaluation Date of Evaluation: 05/23/17 Time of Evaluation: 09:10 - Subjective Subjective: still spiking temp 101.9 +soft form stool cultures neg Objective - Vital Signs/Intake and Output Vital Signs (last 24 hours): Temp Pulse Resp BP Pulse Ox 97.9 F 89 20 105/63 97 05/23/17 23:30 05/23/17 23:30 05/23/17 23:30 05/23/17 23:30 05/23/17 23:30 Intake and Output: 05/23/17 05/24/17 18:59 06:59 Intake Total 760 Balance 760 - Medications Medications: Current Medications Acetaminophen (Tylenol 325mg Tab) 325 mg PO Q4 PRN PRN Reason: FOR FEVER Last Admin: 05/23/17 08:46 Dose: 325 mg Albuterol/Ipratropium (Duoneb 3 Mg/0.5 Mg (3 Ml) Ud) 3 ml INH RQ6 [facility] Last Admin: 05/24/17 01:48 Dose: Not Given Apixaban (Eliquis) 5 mg PO BID [facility] Last Admin: 05/23/17 18:20 Dose: 5 mg Epoetin Woody (Procrit) 10,000 unit SC MWF [facility] Stop: 05/26/17 09:01 Last Admin: 05/23/17 10:20 Dose: 10,000 unit Famotidine (Pepcid) 20 mg PO DAILY [facility] Last Admin: 05/23/17 10:20 Dose: 20 mg Metronidazole (Flagyl) 500 mg in 100 mls @ 100 mls/hr IVPB Q8 [facility] Last Admin: 05/23/17 21:31 Dose: 100 mls/hr Methimazole (Tapazole) 5 mg PO DAILY [facility] Last Admin: 05/23/17 10:20 Dose: 5 mg Vancomycin HCl (Vancocin (Oral Or Rectal Use)) 250 mg PO QID [facility] Last Admin: 05/23/17 22:31 Dose: 250 mg - Labs Labs: 05/23/17 11:19 05/23/17 11:19 - Constitutional Appears: Chronically Ill - Head Exam Head Exam: NORMAL INSPECTION - Eye Exam Eye Exam: absent: Scleral icterus - Neck Exam Neck Exam: Full ROM - Respiratory Exam Respiratory Exam: Decreased Breath Sounds - Cardiovascular Exam Cardiovascular Exam: REGULAR RHYTHM - GI/Abdominal Exam GI & Abdominal Exam: Soft - Extremities Exam Extremities Exam: absent: Pedal Edema - Neurological Exam Neurological Exam: Alert, Awake - Psychiatric Exam Psychiatric exam: Anxious Assessment and Plan - Assessment and Plan (Free Text) Assessment: C dif colitis MDS with refractory anemia Hx of PE on anticoagualtion Plan: Cont PO Vanco Cont blood thinners Transfusion prn Heme follow up
--- NOTE | 2017-05-24 04:24 | CP.PCM.PN ---
Subjective - Date & Time of Evaluation Date of Evaluation: 05/22/17 Time of Evaluation: 09:20 - Subjective Subjective: no chest pain weak on and off fever +soft stools Objective - Vital Signs/Intake and Output Vital Signs (last 24 hours): Temp Pulse Resp BP Pulse Ox 97.9 F 89 20 105/63 97 05/23/17 23:30 05/23/17 23:30 05/23/17 23:30 05/23/17 23:30 05/23/17 23:30 Intake and Output: 05/23/17 05/24/17 18:59 06:59 Intake Total 760 Balance 760 - Medications Medications: Current Medications Acetaminophen (Tylenol 325mg Tab) 325 mg PO Q4 PRN PRN Reason: FOR FEVER Last Admin: 05/23/17 08:46 Dose: 325 mg Albuterol/Ipratropium (Duoneb 3 Mg/0.5 Mg (3 Ml) Ud) 3 ml INH RQ6 [facility] Last Admin: 05/24/17 01:48 Dose: Not Given Apixaban (Eliquis) 5 mg PO BID [facility] Last Admin: 05/23/17 18:20 Dose: 5 mg Epoetin Woody (Procrit) 10,000 unit SC MWF [facility] Stop: 05/26/17 09:01 Last Admin: 05/23/17 10:20 Dose: 10,000 unit Famotidine (Pepcid) 20 mg PO DAILY [facility] Last Admin: 05/23/17 10:20 Dose: 20 mg Metronidazole (Flagyl) 500 mg in 100 mls @ 100 mls/hr IVPB Q8 [facility] Last Admin: 05/23/17 21:31 Dose: 100 mls/hr Methimazole (Tapazole) 5 mg PO DAILY [facility] Last Admin: 05/23/17 10:20 Dose: 5 mg Vancomycin HCl (Vancocin (Oral Or Rectal Use)) 250 mg PO QID [facility] Last Admin: 05/23/17 22:31 Dose: 250 mg - Labs Labs: 05/23/17 11:19 05/23/17 11:19 - Constitutional Appears: Chronically Ill - Head Exam Head Exam: NORMAL INSPECTION - Eye Exam Eye Exam: absent: Scleral icterus - Neck Exam Neck Exam: absent: Lymphadenopathy - Respiratory Exam Respiratory Exam: Decreased Breath Sounds. absent: Rhonchi - Cardiovascular Exam Cardiovascular Exam: REGULAR RHYTHM - GI/Abdominal Exam GI & Abdominal Exam: Soft - Extremities Exam Extremities Exam: Calf Tenderness. absent: Pedal Edema - Neurological Exam Neurological Exam: Alert, Oriented x3 - Psychiatric Exam Psychiatric exam: Anxious Assessment and Plan - Assessment and Plan (Free Text) Assessment: Hx of PE C dif colitis MDS w/ refractory anemia Plan: Cont AC, transfusion prn Case discussed with daughter Anxious to go home Monitor and correct lytes
--- NOTE | 2017-05-24 04:49 | CP.PCM.PN ---
Subjective - Date & Time of Evaluation Date of Evaluation: 05/21/17 Time of Evaluation: 08:15 - Subjective Subjective: weak fever persist no sob soft formed stool Objective - Vital Signs/Intake and Output Vital Signs (last 24 hours): Temp Pulse Resp BP Pulse Ox 97.9 F 89 20 105/63 97 05/23/17 23:30 05/23/17 23:30 05/23/17 23:30 05/23/17 23:30 05/23/17 23:30 Intake and Output: 05/23/17 05/24/17 18:59 06:59 Intake Total 760 Balance 760 - Medications Medications: Current Medications Acetaminophen (Tylenol 325mg Tab) 325 mg PO Q4 PRN PRN Reason: FOR FEVER Last Admin: 05/23/17 08:46 Dose: 325 mg Albuterol/Ipratropium (Duoneb 3 Mg/0.5 Mg (3 Ml) Ud) 3 ml INH RQ6 [facility] Last Admin: 05/24/17 01:48 Dose: Not Given Apixaban (Eliquis) 5 mg PO BID [facility] Last Admin: 05/23/17 18:20 Dose: 5 mg Epoetin Woody (Procrit) 10,000 unit SC MWF [facility] Stop: 05/26/17 09:01 Last Admin: 05/23/17 10:20 Dose: 10,000 unit Famotidine (Pepcid) 20 mg PO DAILY [facility] Last Admin: 05/23/17 10:20 Dose: 20 mg Metronidazole (Flagyl) 500 mg in 100 mls @ 100 mls/hr IVPB Q8 [facility] Last Admin: 05/23/17 21:31 Dose: 100 mls/hr Methimazole (Tapazole) 5 mg PO DAILY [facility] Last Admin: 05/23/17 10:20 Dose: 5 mg Vancomycin HCl (Vancocin (Oral Or Rectal Use)) 250 mg PO QID [facility] Last Admin: 05/23/17 22:31 Dose: 250 mg - Labs Labs: 05/23/17 11:19 05/23/17 11:19 - Constitutional Appears: Non-toxic - Head Exam Head Exam: ATRAUMATIC - Eye Exam Eye Exam: absent: Scleral icterus - ENT Exam ENT Exam: Mucous Membranes Dry - Neck Exam Neck Exam: Full ROM - Respiratory Exam Respiratory Exam: Clear to Ausculation Bilateral - Cardiovascular Exam Cardiovascular Exam: REGULAR RHYTHM - GI/Abdominal Exam GI & Abdominal Exam: Soft - Extremities Exam Extremities Exam: Pedal Edema. absent: Calf Tenderness Assessment and Plan - Assessment and Plan (Free Text) Assessment: C dif colitis MDS Hx of PE Refractory anemia Plan: Cont present meds Will DC when afebrile
--- NOTE | 2017-05-24 04:57 | CP.PCM.CON ---
History of Present Illness - History of Present Illness History of Present Illness: Reason of consult: hx of PE dehydration CC: dehydration HPI: 76 F with h/o PE on eliquis, MDS, chronic refractory anemia, thrombocytosis , on revlimid po, h/o hyperthyroidism on methimazole came to the hospital with c /o diarrhea for about 2 wks, worsened 2 days, fever at home, diffuse abd pain, patient initially went to Dr Ellen mccain who sent her the ER. She was found to have Cdiff antigen +, hyponatremia of 116, clinically dry. Patient at the time of exam was awake, oriented, non toxic, c/o urge to have bm but not in acute distress, denied nausea vomiting. Review of Systems - Constitutional Constitutional: Fatigue, Fever, Headache - Cardiovascular Cardiovascular: Dyspnea on Exertion, Leg Edema - Respiratory Respiratory: Dyspnea on Exertion - Neurological Neurological: Weakness - Psychiatric Psychiatric: Anxiety Past Patient History - Infectious Disease Hx of Infectious Diseases: None - Past Medical History & Family History Past Medical History?: Yes - Past Social History Smoking Status: Never Smoked - CARDIAC Hx Cardiac Disorders: Yes Hx Hypercholesterolemia: Yes Hx Hypertension: Yes - PULMONARY Hx Respiratory Disorders: Yes Hx Pneumonia: Yes - NEUROLOGICAL Hx Neurological Disorder: No - HEENT Hx HEENT Problems: No - RENAL Hx Chronic Kidney Disease: No - ENDOCRINE/METABOLIC Hx Endocrine Disorders: Yes Hx Hyperthyroidism: Yes Hx Hypothyroidism: Yes - HEMATOLOGICAL/ONCOLOGICAL Hx Blood Disorders: Yes Hx Anemia: Yes Hx Blood Transfusions: Yes Hx Blood Transfusion Reaction: No Other/Comment: MDS- MYELODYSPLASTIC SYNDROME - INTEGUMENTARY Hx Dermatological Problems: No - MUSCULOSKELETAL/RHEUMATOLOGICAL Hx Musculoskeletal Disorders: Yes Hx Falls: Yes - GASTROINTESTINAL Hx Gastrointestinal Disorders: Yes Hx Gastritis: Yes - GENITOURINARY/GYNECOLOGICAL Hx Genitourinary Disorders: No - PSYCHIATRIC Hx Psychophysiologic Disorder: No Hx Substance Use: No - SURGICAL HISTORY Hx Surgeries: No - ANESTHESIA Hx Anesthesia: No Hx Anesthesia Reactions: No Hx Malignant Hyperthermia: No Has any member of the family had a problem w/ anesthesia?: No Meds Allergies/Adverse Reactions: Allergies Allergy/AdvReac Type Severity Reaction Status Date / Time No Known Allergies Allergy Verified 05/14/17 16:14 - Medications Medications: Current Medications Acetaminophen (Tylenol 325mg Tab) 325 mg PO Q4 PRN PRN Reason: FOR FEVER Last Admin: 05/23/17 08:46 Dose: 325 mg Albuterol/Ipratropium (Duoneb 3 Mg/0.5 Mg (3 Ml) Ud) 3 ml INH RQ6 [facility] Last Admin: 05/24/17 01:48 Dose: Not Given Apixaban (Eliquis) 5 mg PO BID [facility] Last Admin: 05/23/17 18:20 Dose: 5 mg Epoetin Woody (Procrit) 10,000 unit SC MWF [facility] Stop: 05/26/17 09:01 Last Admin: 05/23/17 10:20 Dose: 10,000 unit Famotidine (Pepcid) 20 mg PO DAILY [facility] Last Admin: 05/23/17 10:20 Dose: 20 mg Metronidazole (Flagyl) 500 mg in 100 mls @ 100 mls/hr IVPB Q8 [facility] Last Admin: 05/23/17 21:31 Dose: 100 mls/hr Methimazole (Tapazole) 5 mg PO DAILY [facility] Last Admin: 05/23/17 10:20 Dose: 5 mg Vancomycin HCl (Vancocin (Oral Or Rectal Use)) 250 mg PO QID [facility] Last Admin: 05/23/17 22:31 Dose: 250 mg Physical Exam - Constitutional Appears: Non-toxic - Head Exam Head Exam: NORMOCEPHALIC - Eye Exam Eye Exam: absent: Scleral icterus - ENT Exam ENT Exam: Mucous Membranes Dry - Neck Exam Neck exam: Positive for: Full Rom - Respiratory Exam Respiratory Exam: Decreased Breath Sounds - Cardiovascular Exam Cardiovascular Exam: REGULAR RHYTHM - GI/Abdominal Exam GI & Abdominal Exam: Soft - Exam External exam: Swelling - Extremities Exam Extremities exam: Positive for: pedal edema - Neurological Exam Neurological exam: Alert, Oriented x3 - Psychiatric Exam Psychiatric exam: Anxious - Skin Skin Exam: Dry Results - Vital Signs Recent Vital Signs: Last Vital Signs Temp 97.9 F 05/23/17 23:30 Pulse 89 05/23/17 23:30 Resp 20 05/23/17 23:30 BP 105/63 05/23/17 23:30 Pulse Ox 97 05/23/17 23:30 - Labs Result Diagrams: 05/23/17 11:19 05/23/17 11:19 Labs: Laboratory Results - last 24 hr 05/23/17 05/23/17 05/23/17 10:50 10:55 11:19 WBC 8.6 RBC 3.50 L Hgb 9.7 L Hct 28.6 L MCV 81.9 MCH 27.6 MCHC 33.7 RDW 20.8 H Plt Count 478 H MPV 8.7 Neut % (Auto) 90.1 H Lymph % (Auto) 4.3 L Mills % (Auto) 2.3 Eos % (Auto) 3.0 Baso % (Auto) 0.3 Neut # 7.7 H Lymph # 0.4 L Mills # 0.2 Eos # 0.3 Baso # 0.0 Neutrophils % (Manual) 84 H Band Neutrophils % 2 Lymphocytes % (Manual) 7 L Monocytes % (Manual) 5 Eosinophils % (Manual) 1 Basophils % (Manual) 1 Platelet Estimate Slightly increased H Poikilocytosis (manual Slight Anisocytosis (manual) Moderate Ovalocytes Slight Schistocytes Slight Sodium Potassium Chloride Carbon Dioxide Anion Gap BUN Creatinine Est GFR ( Amer) Est GFR (Non-Af Amer) Random Glucose Uric Acid Calcium Total Bilirubin AST ALT Alkaline Phosphatase Total Protein Albumin Globulin Albumin/Globulin Ratio Urine Color Yellow Urine Clarity Clear Urine pH 9.0 Ur Specific [place] 1.010 Urine Protein Negative Urine Glucose (UA) Normal Urine Ketones Negative Urine Blood Negative Urine Nitrate Negative Urine Bilirubin Negative Urine Urobilinogen Normal Ur Leukocyte Esterase Neg Urine WBC (Auto) 2 Urine RBC (Auto) 1 Ur Squamous Epith Cells 2 Urine Osmolality Ur Random Sodium Ur Random Potassium Influenza Typ A,B (EIA) Negative for flu a/b 05/23/17 05/23/17 05/23/17 11:19 21:35 21:35 WBC RBC Hgb Hct MCV MCH MCHC RDW Plt Count MPV Neut % (Auto) Lymph % (Auto) Mills % (Auto) Eos % (Auto) Baso % (Auto) Neut # Lymph # Mills # Eos # Baso # Neutrophils % (Manual) Band Neutrophils % Lymphocytes % (Manual) Monocytes % (Manual) Eosinophils % (Manual) Basophils % (Manual) Platelet Estimate Poikilocytosis (manual Anisocytosis (manual) Ovalocytes Schistocytes Sodium 120 L* Potassium 3.1 L Chloride 88 L Carbon Dioxide 28 Anion Gap 7 L BUN 5 L Creatinine 0.5 L Est GFR ( Amer) > 60 Est GFR (Non-Af Amer) > 60 Random Glucose 108 H Uric Acid Calcium 7.2 L Total Bilirubin 1.1 AST 20 ALT 20 Alkaline Phosphatase 60 Total Protein 5.3 L Albumin 2.3 L Globulin 3.1 Albumin/Globulin Ratio 0.7 L Urine Color Urine Clarity Urine pH Ur Specific [place] Urine Protein Urine Glucose (UA) Urine Ketones Urine Blood Urine Nitrate Urine Bilirubin Urine Urobilinogen Ur Leukocyte Esterase Urine WBC (Auto) Urine RBC (Auto) Ur Squamous Epith Cells Urine Osmolality 517 Ur Random Sodium 112 Ur Random Potassium 71.3 Influenza Typ A,B (EIA) 05/23/17 21:42 WBC RBC Hgb Hct MCV MCH MCHC RDW Plt Count MPV Neut % (Auto) Lymph % (Auto) Mills % (Auto) Eos % (Auto) Baso % (Auto) Neut # Lymph # Mills # Eos # Baso # Neutrophils % (Manual) Band Neutrophils % Lymphocytes % (Manual) Monocytes % (Manual) Eosinophils % (Manual) Basophils % (Manual) Platelet Estimate Poikilocytosis (manual Anisocytosis (manual) Ovalocytes Schistocytes Sodium Potassium Chloride Carbon Dioxide Anion Gap BUN Creatinine Est GFR ( Amer) Est GFR (Non-Af Amer) Random Glucose Uric Acid 2.7 Calcium Total Bilirubin AST ALT Alkaline Phosphatase Total Protein Albumin Globulin Albumin/Globulin Ratio Urine Color Urine Clarity Urine pH Ur Specific [place] Urine Protein Urine Glucose (UA) Urine Ketones Urine Blood Urine Nitrate Urine Bilirubin Urine Urobilinogen Ur Leukocyte Esterase Urine WBC (Auto) Urine RBC (Auto) Ur Squamous Epith Cells Urine Osmolality Ur Random Sodium Ur Random Potassium Influenza Typ A,B (EIA) Assessment & Plan - Assessment and Plan (Free Text) Assessment: Dehydration C dif colitis MDS Hx of PE Chronic hyponatremia Electrolyte imbalance Plan: Cont po Vanco/Flagyl Cont AC Transfusion prn Hydration Correct lytes Thanks for consult. Will follow...
[2017-05-24] MEDS: metroNIDAZOLE IV 500 mg/100 ml 500 MG/100 ML BAG IVPB SCH ×3 (05:56→21:29)
[2017-05-24 08:12] LABS: HEMOGLOBIN 9.8 g/dL (11.0-16.0); MEAN CELL VOLUME 80.8 fL (81.0-99.0); MEAN CORPUSCULAR HEMOGLOBIN 27.7 pg (27.0-31.0); MEAN CORPUSCULAR HGB CONC 34.2 g/dL (33.0-37.0); MEAN PLATELET VOLUME 9.2 fL (7.2-11.7); RBC 3.55 Mil/uL (3.80-5.20); RED CELL DISTRIBUTION WIDTH 20.8 % (11.5-14.5); WHITE BLOOD COUNT 6.1 K/uL (4.8-10.8)
--- NOTE | 2017-05-24 08:20 | CP.PCM.PN ---
Subjective - Date & Time of Evaluation Date of Evaluation: 05/24/17 Time of Evaluation: 07:55 - Subjective Subjective: Pt no complain. No more fever x 24 hrs. Denies cough, no SOB, no edema??, no palpitation got transfuse before fever Objective - Vital Signs/Intake and Output Vital Signs (last 24 hours): Temp Pulse Resp BP Pulse Ox 97.9 F 75 20 109/67 96 05/24/17 07:45 05/24/17 07:45 05/24/17 07:45 05/24/17 07:45 05/24/17 07:45 Intake and Output: 05/24/17 05/24/17 06:59 18:59 Intake Total 200 Balance 200 - Medications Medications: Current Medications Acetaminophen (Tylenol 325mg Tab) 325 mg PO Q4 PRN PRN Reason: FOR FEVER Last Admin: 05/23/17 08:46 Dose: 325 mg Albuterol/Ipratropium (Duoneb 3 Mg/0.5 Mg (3 Ml) Ud) 3 ml INH RQ6 [facility] Last Admin: 05/24/17 01:48 Dose: Not Given Apixaban (Eliquis) 5 mg PO BID [facility] Last Admin: 05/23/17 18:20 Dose: 5 mg Epoetin Woody (Procrit) 10,000 unit SC MWF [facility] Stop: 05/26/17 09:01 Last Admin: 05/23/17 10:20 Dose: 10,000 unit Famotidine (Pepcid) 20 mg PO DAILY [facility] Last Admin: 05/23/17 10:20 Dose: 20 mg Furosemide (Lasix) 20 mg PO STAT [facility] Stop: 05/24/17 08:16 Metronidazole (Flagyl) 500 mg in 100 mls @ 100 mls/hr IVPB Q8 [facility] Last Admin: 05/24/17 05:56 Dose: 100 mls/hr Methimazole (Tapazole) 5 mg PO DAILY [facility] Last Admin: 05/23/17 10:20 Dose: 5 mg Vancomycin HCl (Vancocin (Oral Or Rectal Use)) 250 mg PO QID [facility] Last Admin: 05/23/17 22:31 Dose: 250 mg - Labs Labs: 05/23/17 11:19 05/23/17 11:19 - Constitutional Appears: No Acute Distress - Eye Exam Eye Exam: Normal appearance - ENT Exam ENT Exam: Mucous Membranes Moist - Neck Exam Neck Exam: Full ROM. absent: Lymphadenopathy, Normal Inspection - Respiratory Exam Respiratory Exam: Clear to Ausculation Bilateral. absent: Rales, Rhonchi, Wheezes - GI/Abdominal Exam GI & Abdominal Exam: Soft. absent: Tenderness, Mass, Normal Bowel Sounds - Extremities Exam Extremities Exam: Full ROM, Pedal Edema. absent: Calf Tenderness, Joint Swelling Assessment and Plan - Assessment and Plan (Free Text) Assessment: Recent PE, MDS Chr hyponatremia; C diff colitis Cont meds/ lasix x 1 to dec excess fluid Discharge if clear c/o ID
[2017-05-24 08:29] LABS: ALB/GLOB RATIO 0.7 (1.0-2.1); ALBUMIN 2.3 g/dL (3.5-5.0); ALT/SGPT 26 U/L (9-52); AST/SGOT 17 U/L (14-36); BLOOD UREA NITROGEN 6 mg/dL (7-17); CALCIUM 7.9 mg/dl (8.6-10.4); GFR AFRICAN-AMERICAN > 60; GFR NON-AFRICAN AMERICAN > 60; MAGNESIUM 2.3 mg/dL (1.6-2.3)
[2017-05-24] MEDS: methIMAzole 5 MG TAB PO SCH (10:41)
[2017-05-24] MEDS: Vancomycin 125 MG/5 ML SOLN (ORAL/RECTAL) PO SCH ×4 (10:42→21:29)
[2017-05-24 12:11] LABS: NEUT # 3.8 K/uL (1.8-7.0)
[2017-05-24 12:12] LABS: EOS # 0.4 K/uL (0.0-0.7); LYMPH # 1.2 K/uL (1.0-4.3); MONO # 0.7 K/uL (0.0-0.8)
--- NOTE | 2017-05-24 14:43 | CP.PCM.CON ---
History of Present Illness - History of Present Illness History of Present Illness: pt is seen and examined, full consult is dictated #[id number] 1. 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 MDS 3. S/p c .diff will do urine lytes, osm, will do serum osm, tsh, uric acid, cortisol level tolvaptan 30 mg po x1 dose serum na this am increased to 135 the goal is 8-10 meq/24 hrs will give d5w 500 ml bolus now and then d5w at 80 ml/hr bmp at 6 pm and q 8 hrs x3 Past Patient History - Infectious Disease Hx of Infectious Diseases: None - Past Medical History & Family History Past Medical History?: Yes - Past Social History Smoking Status: Never Smoked - CARDIAC Hx Cardiac Disorders: Yes Hx Hypercholesterolemia: Yes Hx Hypertension: Yes - PULMONARY Hx Respiratory Disorders: Yes Hx Pneumonia: Yes - NEUROLOGICAL Hx Neurological Disorder: No - HEENT Hx HEENT Problems: No - RENAL Hx Chronic Kidney Disease: No - ENDOCRINE/METABOLIC Hx Endocrine Disorders: Yes Hx Hyperthyroidism: Yes Hx Hypothyroidism: Yes - HEMATOLOGICAL/ONCOLOGICAL Hx Blood Disorders: Yes Hx Anemia: Yes Hx Blood Transfusions: Yes Hx Blood Transfusion Reaction: No Other/Comment: MDS- MYELODYSPLASTIC SYNDROME - INTEGUMENTARY Hx Dermatological Problems: No - MUSCULOSKELETAL/RHEUMATOLOGICAL Hx Musculoskeletal Disorders: Yes Hx Falls: Yes - GASTROINTESTINAL Hx Gastrointestinal Disorders: Yes Hx Gastritis: Yes - GENITOURINARY/GYNECOLOGICAL Hx Genitourinary Disorders: No - PSYCHIATRIC Hx Psychophysiologic Disorder: No Hx Substance Use: No - SURGICAL HISTORY Hx Surgeries: No - ANESTHESIA Hx Anesthesia: No Hx Anesthesia Reactions: No Hx Malignant Hyperthermia: No Has any member of the family had a problem w/ anesthesia?: No Meds Allergies/Adverse Reactions: Allergies Allergy/AdvReac Type Severity Reaction Status Date / Time No Known Allergies Allergy Verified 05/14/17 16:14 - Medications Medications: Current Medications Acetaminophen (Tylenol 325mg Tab) 325 mg PO Q4 PRN PRN Reason: FOR FEVER Last Admin: 05/23/17 08:46 Dose: 325 mg Albuterol/Ipratropium (Duoneb 3 Mg/0.5 Mg (3 Ml) Ud) 3 ml INH RQ6 [facility] Last Admin: 05/24/17 14:18 Dose: 3 ml Apixaban (Eliquis) 5 mg PO BID [facility] Last Admin: 05/24/17 10:41 Dose: 5 mg Epoetin Woody (Procrit) 10,000 unit SC MWF [facility] Stop: 05/26/17 09:01 Last Admin: 05/23/17 10:20 Dose: 10,000 unit Famotidine (Pepcid) 20 mg PO DAILY [facility] Last Admin: 05/24/17 10:41 Dose: 20 mg Metronidazole (Flagyl) 500 mg in 100 mls @ 100 mls/hr IVPB Q8 [facility] Last Admin: 05/24/17 13:38 Dose: 100 mls/hr Dextrose (Dextrose 5% In Water) 500 mls @ 500 mls/hr IV .Q1H [facility] Stop: 05/24/17 15:29 Last Admin: 05/24/17 14:38 Dose: 500 mls/hr Dextrose (Dextrose 5% In Water 1000 Ml) 1,000 mls @ 80 mls/hr IV .[id number] [facility] Last Admin: 05/24/17 14:36 Dose: 80 mls/hr Methimazole (Tapazole) 5 mg PO DAILY [facility] Last Admin: 05/24/17 10:41 Dose: 5 mg Vancomycin HCl (Vancocin (Oral Or Rectal Use)) 250 mg PO QID [facility] Last Admin: 05/24/17 13:38 Dose: 250 mg Results - Vital Signs Recent Vital Signs: Last Vital Signs Temp 97.9 F 05/24/17 07:45 Pulse 75 05/24/17 07:45 Resp 20 05/24/17 07:45 BP 109/64 05/24/17 08:53 Pulse Ox 96 05/24/17 07:45 - Labs Result Diagrams: 05/24/17 07:56 05/24/17 07:56 Labs: Laboratory Results - last 24 hr 05/23/17 05/23/17 05/23/17 21:35 21:35 21:42 WBC RBC Hgb Hct MCV MCH MCHC RDW Plt Count MPV Neut % (Auto) Lymph % (Auto) [place] % (Auto) Eos % (Auto) Baso % (Auto) Neut # Lymph # [place] # Eos # Baso # D-Dimer, Quantitative Sodium Potassium Chloride Carbon Dioxide Anion Gap BUN Creatinine Est GFR ( Amer) Est GFR (Non-Af Amer) Random Glucose Uric Acid 2.7 Calcium Magnesium Total Bilirubin AST ALT Alkaline Phosphatase Total Protein Albumin Globulin Albumin/Globulin Ratio TSH 3rd Generation Cortisol AM Sample Urine Osmolality 517 Ur Random Sodium 112 Ur Random Potassium 71.3 05/24/17 05/24/17 05/24/17 07:56 07:56 07:56 WBC 6.1 RBC 3.55 L Hgb 9.8 L Hct 28.7 L MCV 80.8 L MCH 27.7 MCHC 34.2 RDW 20.8 H Plt Count 542 H MPV 9.2 Neut % (Auto) 62.0 Lymph % (Auto) 20.0 [place] % (Auto) 11.0 H Eos % (Auto) 7.0 H Baso % (Auto) 0.0 Neut # 3.8 Lymph # 1.2 [place] # 0.7 Eos # 0.4 Baso # 0.0 D-Dimer, Quantitative 939 H Sodium 135 Potassium 3.7 Chloride 99 Carbon Dioxide 32 H Anion Gap 8 L BUN 6 L Creatinine 0.5 L Est GFR ( Amer) > 60 Est GFR (Non-Af Amer) > 60 Random Glucose 106 H Uric Acid Calcium 7.9 L Magnesium 2.3 Total Bilirubin 0.6 AST 17 ALT 26 Alkaline Phosphatase 52 Total Protein 5.4 L Albumin 2.3 L Globulin 3.1 Albumin/Globulin Ratio 0.7 L TSH 3rd Generation 2.30 Cortisol AM Sample Urine Osmolality Ur Random Sodium Ur Random Potassium 05/24/17 07:56 WBC RBC Hgb Hct MCV MCH MCHC RDW Plt Count MPV Neut % (Auto) Lymph % (Auto) [place] % (Auto) Eos % (Auto) Baso % (Auto) Neut # Lymph # [place] # Eos # Baso # D-Dimer, Quantitative Sodium Potassium Chloride Carbon Dioxide Anion Gap BUN Creatinine Est GFR ( Amer) Est GFR (Non-Af Amer) Random Glucose Uric Acid Calcium Magnesium Total Bilirubin AST ALT Alkaline Phosphatase Total Protein Albumin Globulin Albumin/Globulin Ratio TSH 3rd Generation Cortisol AM Sample 15.9 Urine Osmolality Ur Random Sodium Ur Random Potassium
--- NOTE | 2017-05-24 21:18 | CON ---
DATE: 05/24/2017 RENAL CONSULTATION REQUESTED BY: Víctor Marie MD. REASON FOR RENAL CONSULTATION: Hyponatremia, for further evaluation. HISTORY OF PRESENT ILLNESS: Mrs. Espino is a 76-year-old elderly Citizen Of [place] female with past medical history significant for myelodysplastic syndrome and pulmonary embolism and hypertension, who was given antibiotics on 05/01/2017. Subsequently, patient developed diarrhea which has [id number] stools for 2 weeks. Her diarrhea got worse for 2 days and associated with a fever of 101 and patient went to the emergency room and was admitted on 05/15/2017. Patient was also found to have a stool for C. diff. toxin positive and also serum sodium 116. Patient is being treated for C. diff. colitis and also hyponatremia. Initially, patient's sodium responded to IV fluids subsequently. Serum sodium remains between 124 and 120. The last one is 120 and renal consult requested for further evaluation. Patient is not in acute distress. Denies any shortness of breath and denies any chest pain or palpitation. Denies any fever or cough. Denies any nausea, vomiting, diarrhea. Patient has regular bowel movement one to two per day. Patient is on Lasix on and off also in the last few days. PAST MEDICAL HISTORY: Significant for myelodysplastic syndrome, pulmonary emboli, and hypertension. Denies any CVA, coronary artery disease. PAST SURGICAL HISTORY: Denies. ALLERGIES: NO KNOWN DRUG ALLERGIES. SOCIAL HISTORY: No smoking. No alcohol. No drugs. PERSONAL HISTORY: She is a and she has five children. FAMILY HISTORY: Both parents . MEDICATIONS: Her current medication include as follows: Eliquis 5 mg p.o. b.i.d., Flagyl 500 mg IV q. 8 hours, Pepcid 20 mg p.o. daily, Procrit 10,000 units three times a week, Tapazole 5 mg p.o. daily, Tylenol, and also vancomycin 250 mg p.o. q.i.d. REVIEW OF SYSTEMS: Significant for fever and diarrhea for 2 weeks prior to the admission and also significant for hyponatremia and bilateral lower extremity swelling. All other review of systems are reviewed and are negative. PHYSICAL EXAMINATION: VITAL SIGNS: As follows: Blood pressure 127/64, pulse 96, respiration 20, temperature 99.4, saturation 98%. Height 5 feet 2 inches and weight is 136 pounds. GENERAL: Mrs. Espino is a 76-year-old elderly Citizen Of [place] female, moderately built, moderately nourished, not in acute distress. HEENT: Pupils normal and reactive to light and accommodation. Conjunctivae pale. Sclerae anicteric. Tongue is moist and trachea is midline. LUNGS: Symmetric on both sides. Bilateral breath sounds present. Occasional left basal crackles present. CARDIOVASCULAR SYSTEM: [place] at the fifth intercostal space, half inch medial to midclavicular line. S1 and S2 audible. No murmur or gallop. ABDOMEN: Normal in appearance, soft, tympanic. No guarding. No rigidity. No hepatosplenomegaly. No abdominal bruits. CENTRAL NERVOUS SYSTEM: Patient is alert, awake, and oriented x3. Nonfocal neuro examination. Cranial nerves II through XII grossly intact. Sensory and motor system is within normal limits. Deep tendon reflexes normal. EXTREMITIES: No cyanosis, no clubbing. Patient has 1+ edema in both lower extremities. LABORATORY DATA: Review of the labs, as of 05/14/2017, WBC 8.7, hemoglobin 8.5, hematocrit is 26.2, MCV 78.4, and platelets 586 and neutrophils 36, bands 13, lymph 31, monos 3, and eosinophils 9%. Sodium 116, potassium 4.8, chloride 89, CO2 of 24, BUN 11, creatinine 0.6, glucose 106, calcium is 7. Total bili 1.1, AST 41, ALT 23, alkaline phosphatase 47, total protein 6.5, and albumin is 2.6 and lipase less than 10 and procalcitonin 0.24 and TSH is 1.42. Urine was renee clear and pH 5, specific gravity 1.026. Urine protein 1+, glucose negative, ketones negative, blood negative, nitrogen negative, bilirubin negative, urobilinogen normal, leukocyte esterase negative, wbc 2, rbc less than 1, bacteria rare, and stool for C. diff. toxin is positive. As of 05/14/2017, sodium is 120 and on 05/15/2017, sodium is 119. As of 05/17/2017, serum sodium is 125. As of 05/21/2017, serum sodium is 121, BUN and creatinine 7 and 0.5. As of 05/22/2017, serum sodium is 124. As of 05/13/2017, serum sodium of 120, potassium 3.1, chloride 88, CO2 of 28, BUN 5, creatinine 0.5, glucose 106, calcium 7.2, total protein 5.3, albumin is 2.3. Urine is yellow clear, pH 9.0, and specific gravity 1.010. Protein negative, glucose negative, ketones negative, blood negative, nitrites negative, bilirubin negative, urobilinogen negative, leukocyte esterase negative, wbc 2, rbc 1. Influenza A and B antibodies negative. Urine electrolytes: Urine osmolality is 517 as of 05/23/2017, urine sodium is 112, urine potassium is 71.3 and serum uric acid level is 2.7. As of 05/24/2017, WBC 6.1, hemoglobin 9.8, hematocrit is 28.7, platelets 542 and D-dimer is 939.. Sodium is 135, potassium 3.7, chloride 99, CO2 of 32, BUN 6, creatinine 0.5, glucose 106, calcium is 7.9, and magnesium 2.3. Total bili 0.6, AST 17, ALT 26, alkaline phosphatase 52, total protein 5.4, albumin is 2.3. As of 05/23/2017, urine culture with multiple species, so I just repeat specimen and blood culture as of 05/23/2017, no growth of 24 hours x2. As of 05/21/2017, blood culture x2 negative, day 2. Chest x-ray as of 05/23/2017, blunting of both costophrenic angles which may represent small pleural effusions. CT of the abdomen and pelvis as of 05/14/2017: Impression, colitis, nonspecific, consider inflammation or infectious etiology, enlarged appendix without definite inflammation, clinical correlation is needed, mild stranding about gallbladder, consented for cholecystitis, clinical correlation is needed. Soft tissue density along the gallbladder fundus. Differential diagnosis is collapsed Phrygian cap focal adenomyomatosis, neoplasm, followup as clinically warranted. Liver lesions, no followup is necessary. Pulmonary nodule, for low-risk patient, recommend followup CT at 6 to 12 months. If unchanged, consider an additional followup CT scan in 18 to 24 months. A duplex scan of the lower extremities, report is pending. ASSESSMENT AND PLAN: In summary, Mrs. Espino is a 76-year-old elderly Citizen Of [place] female with history of myelodysplastic syndrome, anemia, hypertension, recently diagnosed pulmonary embolism, on anticoagulation, was admitted with Clostridium difficile colitis and diarrhea and fever and high WBC count, admitted on 05/14/2017, being treated for Clostridium difficile colitis with p.o. vancomycin and IV Flagyl with persistent hyponatremia. 1. Hyponatremia, most likely secondary to syndrome of inappropriate antidiuretic hormone, cannot rule out secondary to hypervolumic hyponatremia. Cannot rule out hypervolumic hyponatremia less likely. Patient was given one dose of tolvaptan 30 mg last night and serum sodium went up to 135 which is more than anticipated correction and we will give when the goal is to increase the serum sodium 8 to 10 mEq for 24 hours, so we will give D5W 500 mL bolus and also we will give her D5W at 80 mL/hour to correct the serum sodium at this time and repeat BMP at 8:00 p.m. We will discuss with the patient's nurse in rounds regarding the plan. We will follow with you. Thank you for allowing me to participate in your patient's care. The goal of correction of sodium is 8 to 10 mEq for 24 hours and we avoid diuretics at this time also. Rehan Dos Santos MD
[2017-05-25] MEDS: metroNIDAZOLE IV 500 mg/100 ml 500 MG/100 ML BAG IVPB SCH ×3 (05:19→22:11)
[2017-05-25] MEDS: Vancomycin 125 MG/5 ML SOLN (ORAL/RECTAL) PO SCH ×4 (10:55→22:11)
[2017-05-25] MEDS: methIMAzole 5 MG TAB PO SCH (10:55)
--- NOTE | 2017-05-25 13:38 | CP.PCM.PN ---
Subjective - Date & Time of Evaluation Date of Evaluation: 05/25/17 Time of Evaluation: 13:35 - Subjective Subjective: S: Feels anca. Wants to go home. No fever. Objective - Vital Signs/Intake and Output Vital Signs (last 24 hours): Temp Pulse Resp BP Pulse Ox 97.9 F 105 H 20 112/72 96 05/25/17 08:05 05/25/17 08:05 05/25/17 08:05 05/25/17 08:05 05/25/17 08:05 Intake and Output: 05/25/17 05/25/17 06:59 18:59 Intake Total 1780 Balance 1780 - Medications Medications: Current Medications Acetaminophen (Tylenol 325mg Tab) 325 mg PO Q4 PRN PRN Reason: FOR FEVER Last Admin: 05/23/17 08:46 Dose: 325 mg Apixaban (Eliquis) 5 mg PO BID [facility] Last Admin: 05/25/17 10:55 Dose: 5 mg Epoetin Woody (Procrit) 10,000 unit SC MWF [facility] Stop: 05/26/17 09:01 Last Admin: 05/23/17 10:20 Dose: 10,000 unit Famotidine (Pepcid) 20 mg PO DAILY [facility] Last Admin: 05/25/17 10:55 Dose: 20 mg Metronidazole (Flagyl) 500 mg in 100 mls @ 100 mls/hr IVPB Q8 [facility] Last Admin: 05/25/17 05:19 Dose: 100 mls/hr Dextrose (Dextrose 5% In Water 1000 Ml) 1,000 mls @ 80 mls/hr IV .[id number] [facility] Last Admin: 05/25/17 07:47 Dose: 80 mls/hr Methimazole (Tapazole) 5 mg PO DAILY [facility] Last Admin: 05/25/17 10:55 Dose: 5 mg Vancomycin HCl (Vancocin (Oral Or Rectal Use)) 250 mg PO QID [facility] Last Admin: 05/25/17 10:55 Dose: 250 mg - Labs Labs: 05/24/17 07:56 05/24/17 07:56 - Constitutional Appears: Chronically Ill - Head Exam Head Exam: NORMAL INSPECTION - Eye Exam Eye Exam: Normal appearance - ENT Exam ENT Exam: Normal Exam - Neck Exam Neck Exam: Normal Inspection - Respiratory Exam Respiratory Exam: NORMAL BREATHING PATTERN - Cardiovascular Exam Cardiovascular Exam: REGULAR RHYTHM - GI/Abdominal Exam GI & Abdominal Exam: Soft - Rectal Exam Rectal Exam: Deferred - Extremities Exam Extremities Exam: Normal Inspection - Neurological Exam Neurological Exam: Alert Assessment and Plan (1) C. difficile colitis Status: Acute (2) Hypotension Status: Acute (3) History of pulmonary embolism Status: Chronic (4) Hyponatremia Status: Acute - Assessment and Plan (Free Text) Assessment: A/P: Continue medications. Continue IV fluid.
--- NOTE | 2017-05-25 15:36 | CP.PCM.PN ---
Subjective - Date & Time of Evaluation Date of Evaluation: 05/25/17 Time of Evaluation: 09:00 - Subjective Subjective: improving denies fever chills sob no diarrhea cleared for d/c from ID perspective d/c on PO Vanco for 7 more days follow with Dr Sosa in 3 days Objective - Vital Signs/Intake and Output Vital Signs (last 24 hours): Temp Pulse Resp BP Pulse Ox 97.9 F 105 H 20 112/72 96 05/25/17 08:05 05/25/17 08:05 05/25/17 08:05 05/25/17 08:05 05/25/17 08:05 Intake and Output: 05/25/17 05/25/17 06:59 18:59 Intake Total 1780 990 Balance 1780 990 - Medications Medications: Current Medications Acetaminophen (Tylenol 325mg Tab) 325 mg PO Q4 PRN PRN Reason: FOR FEVER Last Admin: 05/23/17 08:46 Dose: 325 mg Apixaban (Eliquis) 5 mg PO BID [facility] Last Admin: 05/25/17 10:55 Dose: 5 mg Epoetin Woody (Procrit) 10,000 unit SC MWF [facility] Stop: 05/26/17 09:01 Last Admin: 05/23/17 10:20 Dose: 10,000 unit Famotidine (Pepcid) 20 mg PO DAILY [facility] Last Admin: 05/25/17 10:55 Dose: 20 mg Metronidazole (Flagyl) 500 mg in 100 mls @ 100 mls/hr IVPB Q8 [facility] Last Admin: 05/25/17 13:43 Dose: 100 mls/hr Dextrose (Dextrose 5% In Water 1000 Ml) 1,000 mls @ 80 mls/hr IV .[id number] [facility] Last Admin: 05/25/17 07:47 Dose: 80 mls/hr Methimazole (Tapazole) 5 mg PO DAILY [facility] Last Admin: 05/25/17 10:55 Dose: 5 mg Vancomycin HCl (Vancocin (Oral Or Rectal Use)) 250 mg PO QID [facility] Last Admin: 05/25/17 13:43 Dose: 250 mg - Labs Labs: 05/24/17 07:56 05/24/17 07:56 - Constitutional Appears: Non-toxic, Cachectic, Chronically Ill - Head Exam Head Exam: NORMOCEPHALIC - Eye Exam Eye Exam: PERRL. absent: Scleral icterus - ENT Exam ENT Exam: Mucous Membranes Dry - Neck Exam Neck Exam: absent: Lymphadenopathy - Respiratory Exam Respiratory Exam: Decreased Breath Sounds - Cardiovascular Exam Cardiovascular Exam: REGULAR RHYTHM - GI/Abdominal Exam GI & Abdominal Exam: Distended, Soft - Rectal Exam Rectal Exam: Deferred - Exam Exam: NORMAL INSPECTION - Extremities Exam Extremities Exam: absent: Pedal Edema - Back Exam Back Exam: absent: CVA tenderness (L), CVA tenderness (R) - Neurological Exam Neurological Exam: Alert, Awake, CN II-XII Intact, Oriented x3 - Psychiatric Exam Psychiatric exam: Normal Mood - Skin Skin Exam: Dry Assessment and Plan (1) C. difficile colitis Status: Acute (2) Hyponatremia Status: Acute (3) Hypotension Status: Acute (4) Abnormal CT of liver Status: Acute (5) Dehydration Status: Acute (6) Myelodysplasia (myelodysplastic syndrome) Status: Acute
--- NOTE | 2017-05-25 17:44 | CP.PCM.PN ---
Subjective - Date & Time of Evaluation Date of Evaluation: 05/25/17 Time of Evaluation: 17:43 - Subjective Subjective: pt is seen and examined, follow up consult is dictated #[id number] check bmp stat for f/u na Objective - Vital Signs/Intake and Output Vital Signs (last 24 hours): Temp Pulse Resp BP Pulse Ox 98.2 F 97 H 20 131/62 96 05/25/17 16:00 05/25/17 16:00 05/25/17 16:00 05/25/17 16:00 05/25/17 16:00 Intake and Output: 05/25/17 05/25/17 06:59 18:59 Intake Total 1780 990 Balance 1780 990 - Medications Medications: Current Medications Acetaminophen (Tylenol 325mg Tab) 325 mg PO Q4 PRN PRN Reason: FOR FEVER Last Admin: 05/23/17 08:46 Dose: 325 mg Apixaban (Eliquis) 5 mg PO BID [facility] Last Admin: 05/25/17 17:07 Dose: 5 mg Epoetin Woody (Procrit) 10,000 unit SC MWF [facility] Stop: 05/26/17 09:01 Last Admin: 05/23/17 10:20 Dose: 10,000 unit Famotidine (Pepcid) 20 mg PO DAILY [facility] Last Admin: 05/25/17 10:55 Dose: 20 mg Metronidazole (Flagyl) 500 mg in 100 mls @ 100 mls/hr IVPB Q8 [facility] Last Admin: 05/25/17 13:43 Dose: 100 mls/hr Dextrose (Dextrose 5% In Water 1000 Ml) 1,000 mls @ 80 mls/hr IV .[id number] [facility] Last Admin: 05/25/17 15:05 Dose: Not Given Methimazole (Tapazole) 5 mg PO DAILY [facility] Last Admin: 05/25/17 10:55 Dose: 5 mg Vancomycin HCl (Vancocin (Oral Or Rectal Use)) 250 mg PO QID [facility] Last Admin: 05/25/17 17:07 Dose: 250 mg - Labs Labs: 05/24/17 07:56 05/24/17 07:56
[2017-05-25 17:49] LABS: BLOOD UREA NITROGEN 4 mg/dL (7-17); CALCIUM 7.3 mg/dl (8.6-10.4); GFR AFRICAN-AMERICAN > 60; GFR NON-AFRICAN AMERICAN > 60
[2017-05-25] MEDS ORDERED: Tolvaptan 15 MG TAB PO ONE (21:30)
--- NOTE | 2017-05-26 03:14 | PN ---
DATE: FOLLOWUP RENAL CONSULTATION LOCATION: Patient is located in the room 567. REQUESTED BY: Víctor Marie MD REASON FOR FOLLOWUP: Hyponatremia, for further evaluation. HISTORY OF PRESENT ILLNESS: Ms. Espino is about 76-year-old elderly female with a past medical history significant for hypertension, hyperlipidemia, hyperthyroidism, gastritis, myelodysplastic syndrome, who was admitted on 05/14/2017, with a chief complaint of diarrhea for about 2 weeks prior to the admission and patient was found to have a low H and H and also stool C. Diff toxin was positive and also hyponatremia and fever. Patient is being treated for C. Diff colitis and on IV Flagyl and p.o. vancomycin. Renal consult is requested initially for hyponatremia. Serum sodium improved from 120 to 135 with tolvaptan and subsequently patient was given D5W for rapid correction. Patient is not in acute distress. The patient was getting IV fluids D5W discontinued this evening. Denies any headache, dizziness. Denies any chest pain or palpitation. Denies any fever or cough. No abdominal pain. No nausea, vomiting or diarrhea. No fever. No cough. No shortness of breath. PHYSICAL EXAMINATION: VITAL SIGNS: As follows, blood pressure 131/62, pulse 97, respiration 20, temperature 98.2, saturation 96%. Height 5 feet 2 inches, weight is 136 pounds. GENERAL: Mrs. Espino is a 76-year-old elderly female, moderately built, moderately nourished, not in acute distress. HEENT: Pupils normal and reactive to light and accommodation. Conjunctivae pink. Sclerae anicteric. Tongue is moist and trachea is midline. LUNGS: Symmetric on both sides. Bilateral breath sounds present. Occasional basal crackles present. CARDIOVASCULAR SYSTEM: [place] at the fifth intercostal space, midclavicular line. S1 and S2 audible. No murmur or gallop. ABDOMEN: Normal in appearance, soft, tympanic. No guarding. No hepatosplenomegaly. CENTRAL NERVOUS SYSTEM: Patient is alert, awake, oriented x3. Nonfocal neuro examination. Cranial nerves II through XII grossly intact. Sensory and motor system is within normal limits. EXTREMITIES: No cyanosis, no clubbing. The patient has 1+ plus edema in both lower extremities. MEDICATIONS: Her current medications include as follows: Eliquis 5 mg p.o. b.i.d., Flagyl 500 mg IV q.8 hours and Pepcid 20 mg p.o. daily, Procrit 10,000 units three times a week and methimazole 5 mg p.o. daily, Tylenol, vancomycin 250 mg p.o. q.i.d. LABORATORY DATA: Include as follows: As of 05/24/2017, WBC 6.1, hemoglobin 9.8, hematocrit is 28.7 and platelets 542. As of 05/25/2017, at 1719 hours, sodium 121, potassium 3.6, chloride 89, CO2 28, BUN 4, creatinine 0.4, glucose 95, calcium 7.3. TSH is 2.3 and serum cortisol 15.9. as of 05/24/2017. ASSESSMENT: In summary, Mrs. Espino is a 76-year-old elderly [place] female with a history of hypertension, myelodysplastic syndrome, hyperthyroidism, gastritis, being treated for Clostridium difficile colitis and hyponatremia. Hyponatremia most likely secondary to syndrome of inappropriate antidiuretic hormone (secretion). PLAN: Discontinue IV fluids. Restrict the IV fluids to 1 liter per day and also sodium chloride tablet 1 g p.o. t.i.d. and also increase the dietary protein supplement, Nepro 1 can p.o. daily and Pro-Stat 30 g p.o. b.i.d., and also we will give her tolvaptan 15 mg p.o. x1 dose today. Repeat BMP in a.m. We will follow with you. Thank you for allowing me to participate in your patient's care and the goal for sodium is to increase about 8 mEq in 24 hours. Rehan Dos Santos MD
[2017-05-26] MEDS: metroNIDAZOLE IV 500 mg/100 ml 500 MG/100 ML BAG IVPB SCH ×2 (05:14→15:17)
--- NOTE | 2017-05-26 06:55 | CP.PCM.PN ---
Subjective - Date & Time of Evaluation Date of Evaluation: 05/25/17 Time of Evaluation: 09:00 - Subjective Subjective: no fever no chills no diarrhea no chest pain no sob Na 135 Objective - Vital Signs/Intake and Output Vital Signs (last 24 hours): Temp Pulse Resp BP Pulse Ox 98.9 F 100 H 20 117/68 96 05/25/17 23:17 05/25/17 23:17 05/25/17 23:17 05/25/17 23:17 05/25/17 23:17 Intake and Output: 05/25/17 05/26/17 18:59 06:59 Intake Total 990 380 Balance 990 380 - Medications Medications: Current Medications Acetaminophen (Tylenol 325mg Tab) 325 mg PO Q4 PRN PRN Reason: FOR FEVER Last Admin: 05/23/17 08:46 Dose: 325 mg Apixaban (Eliquis) 5 mg PO BID [facility] Last Admin: 05/25/17 17:07 Dose: 5 mg Epoetin Woody (Procrit) 10,000 unit SC MWF [facility] Stop: 05/26/17 09:01 Last Admin: 05/23/17 10:20 Dose: 10,000 unit Famotidine (Pepcid) 20 mg PO DAILY [facility] Last Admin: 05/25/17 10:55 Dose: 20 mg Metronidazole (Flagyl) 500 mg in 100 mls @ 100 mls/hr IVPB Q8 [facility] Last Admin: 05/26/17 05:14 Dose: 100 mls/hr Methimazole (Tapazole) 5 mg PO DAILY [facility] Last Admin: 05/25/17 10:55 Dose: 5 mg Sodium Chloride (Sodium Chloride Tab) 1 gm PO TID [facility] Vancomycin HCl (Vancocin (Oral Or Rectal Use)) 250 mg PO QID [facility] Last Admin: 05/25/17 22:11 Dose: 250 mg - Labs Labs: 05/24/17 07:56 05/25/17 17:19 - Constitutional Appears: Non-toxic - Head Exam Head Exam: NORMAL INSPECTION - Eye Exam Eye Exam: absent: Scleral icterus - ENT Exam ENT Exam: Mucous Membranes Moist - Respiratory Exam Respiratory Exam: NORMAL BREATHING PATTERN - Cardiovascular Exam Cardiovascular Exam: REGULAR RHYTHM - GI/Abdominal Exam GI & Abdominal Exam: Soft - Extremities Exam Extremities Exam: Full ROM. absent: Calf Tenderness, Pedal Edema - Neurological Exam Neurological Exam: Alert, CN II-XII Intact Assessment and Plan - Assessment and Plan (Free Text) Assessment: C dif colitis MDS Hx of PE Refractory anemia Plan: Cont Elichip Granger for DC from cardiac standpoint Case discussed with Dr Hernandez
[2017-05-26 09:02] LABS: BLOOD UREA NITROGEN 4 mg/dL (7-17); CALCIUM 7.4 mg/dl (8.6-10.4); GFR AFRICAN-AMERICAN > 60; GFR NON-AFRICAN AMERICAN > 60
--- NOTE | 2017-05-26 09:03 | CP.PCM.PN ---
Subjective - Date & Time of Evaluation Date of Evaluation: 05/26/17 Time of Evaluation: 08:10 - Subjective Subjective: Pt no complain; Want to go home Stool is normal now; No cough, no CP, no SOB, no edema no n/v Objective - Vital Signs/Intake and Output Vital Signs (last 24 hours): Temp Pulse Resp BP Pulse Ox 97.7 F 97 H 20 126/81 98 05/26/17 08:25 05/26/17 08:25 05/26/17 08:25 05/26/17 08:25 05/26/17 08:25 Intake and Output: 05/26/17 05/26/17 06:59 18:59 Intake Total 380 Balance 380 - Medications Medications: Current Medications Acetaminophen (Tylenol 325mg Tab) 325 mg PO Q4 PRN PRN Reason: FOR FEVER Last Admin: 05/23/17 08:46 Dose: 325 mg Apixaban (Eliquis) 5 mg PO BID [facility] Last Admin: 05/25/17 17:07 Dose: 5 mg Epoetin Woody (Procrit) 10,000 unit SC MWF [facility] Stop: 05/26/17 09:01 Last Admin: 05/23/17 10:20 Dose: 10,000 unit Famotidine (Pepcid) 20 mg PO DAILY [facility] Last Admin: 05/25/17 10:55 Dose: 20 mg Metronidazole (Flagyl) 500 mg in 100 mls @ 100 mls/hr IVPB Q8 [facility] Last Admin: 05/26/17 05:14 Dose: 100 mls/hr Methimazole (Tapazole) 5 mg PO DAILY [facility] Last Admin: 05/25/17 10:55 Dose: 5 mg Sodium Chloride (Sodium Chloride Tab) 1 gm PO TID [facility] Vancomycin HCl (Vancocin (Oral Or Rectal Use)) 250 mg PO QID [facility] Last Admin: 05/25/17 22:11 Dose: 250 mg - Labs Labs: 05/24/17 07:56 05/25/17 17:19 - Constitutional Appears: No Acute Distress - Eye Exam Eye Exam: Normal appearance - ENT Exam ENT Exam: Mucous Membranes Moist - Neck Exam Neck Exam: Full ROM. absent: Lymphadenopathy, Thyromegaly - Respiratory Exam Respiratory Exam: Clear to Ausculation Bilateral. absent: Rales, Rhonchi, Wheezes - Cardiovascular Exam Cardiovascular Exam: +S1, +S2, Murmur. absent: Gallop, REGULAR RHYTHM, JVD - GI/Abdominal Exam GI & Abdominal Exam: Soft. absent: Tenderness, Mass - Extremities Exam Extremities Exam: Full ROM, Normal Capillary Refill. absent: Calf Tenderness, Joint Swelling Assessment and Plan - Assessment and Plan (Free Text) Assessment: C Diff colitis Hyponatremia; recent PE; MDS; Hyperthyroidism Cont meds Discharge if clear w/ ID
--- NOTE | 2017-05-26 09:49 | VASCLAB ---
PROCEDURE: Lower Extremity Venous Duplex Exam. HISTORY: BILATERAL LOW EXT EDEMA PRIORS: 04/10/2017, normal. TECHNIQUE: Bilateral common femoral, femoral, popliteal and posterior tibial, peroneal and great saphenous veins were evaluated. Flow was assessed with color Doppler, compressibility, assessment of phasic flow and augmentation response. Report prepared by CHUCKIE Oropeza FINDINGS: RIGHT: 1. Common Femoral Vein: 1.1. Compressibility - Fully compressible: Thrombus - None : Flow - Phasic: Augmentation -Normal: Reflux - None. 2. Femoral Vein: 2.1. Compressibility - Fully compressible: Thrombus - None : Flow - Phasic: Augmentation -Normal: Reflux - None. 3. Popliteal Vein: 3.1. Compressibility - Fully compressible: Thrombus - None : Flow - Phasic: Augmentation -Normal: Reflux - None. 4. Posterior Tibial Vein: 4.1. Compressibility - Fully compressible: Thrombus - None: Flow - Phasic: Augmentation -Normal: Reflux - None. 5. Peroneal Vein: 5.1. Compressibility - Fully compressible: Thrombus - None: Flow - Phasic: Augmentation -Normal: Reflux - None. 6. Great Saphenous Vein: 6.1. Compressibility - Fully compressible: Thrombus - None: Flow - Phasic: Augmentation - Normal: Reflux - None. LEFT: 1. Common Femoral Vein: 1.1. Compressibility - Fully compressible: Thrombus - None: Flow - Phasic: Augmentation -Normal: Reflux - None. 2. Femoral Vein: 2.1. Compressibility - Fully compressible: Thrombus - None: Flow - Phasic: Augmentation -Normal: Reflux - None. 3. Popliteal Vein: 3.1. Compressibility - Fully compressible: Thrombus - None : Flow - Phasic: Augmentation -Normal: Reflux - None. 4. Posterior Tibial Vein: 4.1. Compressibility - Fully compressible: Thrombus - None: Flow - Phasic: Augmentation -Normal: Reflux - None. 5. Peroneal Vein: 5.1. Compressibility - Fully compressible: Thrombus - None: Flow - Phasic: Augmentation -Normal: Reflux - None. 6. Great Saphenous Vein: 6.1. Not visualized. OTHER FINDINGS: Right: None significant. Left: None significant. IMPRESSION: Right: No evidence of deep or superficial vein thrombosis of the right lower extremity. Normal valve function noted of the right side. Left: No evidence of deep or superficial vein thrombosis of the left lower extremity. Normal valve function noted of the left side.
[2017-05-26] MEDS: Vancomycin 125 MG/5 ML SOLN (ORAL/RECTAL) PO SCH ×3 (10:57→18:14)
[2017-05-26] MEDS: EPOETIN ALFA 10,000 UNIT/ML ML SC SCH (10:57)
[2017-05-26] MEDS: methIMAzole 5 MG TAB PO SCH (10:57)
[2017-05-26 16:43] VITALS: BP 132/72; PULSE 96; TEMP 99.9; O2SAT 99
[2017-05-26] MEDS ORDERED: Tolvaptan 15 MG TAB PO ONE (19:11)
--- NOTE | 2017-05-26 19:12 | CP.PCM.PN ---
Subjective - Date & Time of Evaluation Date of Evaluation: 05/26/17 Time of Evaluation: 19:11 - Subjective Subjective: pt is seen and examined, follow up consult is dictated #[id number] Objective - Vital Signs/Intake and Output Vital Signs (last 24 hours): Temp Pulse Resp BP Pulse Ox 99.9 F H 96 H 20 132/72 99 05/26/17 16:42 05/26/17 16:42 05/26/17 16:42 05/26/17 16:42 05/26/17 16:42 Intake and Output: 05/26/17 05/27/17 18:59 06:59 Intake Total 590 Balance 590 - Medications Medications: Current Medications Acetaminophen (Tylenol 325mg Tab) 325 mg PO Q4 PRN PRN Reason: FOR FEVER Last Admin: 05/23/17 08:46 Dose: 325 mg Apixaban (Eliquis) 5 mg PO BID [facility] Last Admin: 05/26/17 18:14 Dose: 5 mg Famotidine (Pepcid) 20 mg PO DAILY [facility] Last Admin: 05/26/17 10:57 Dose: 20 mg Metronidazole (Flagyl) 500 mg in 100 mls @ 100 mls/hr IVPB Q8 [facility] Last Admin: 05/26/17 15:17 Dose: 100 mls/hr Methimazole (Tapazole) 5 mg PO DAILY [facility] Last Admin: 05/26/17 10:57 Dose: 5 mg Sodium Chloride (Sodium Chloride Tab) 1 gm PO TID [facility] Last Admin: 05/26/17 18:14 Dose: 1 gm Vancomycin HCl (Vancocin (Oral Or Rectal Use)) 250 mg PO QID [facility] Last Admin: 05/26/17 18:14 Dose: 250 mg - Labs Labs: 05/24/17 07:56 05/26/17 08:41
--- NOTE | 2017-05-27 09:41 | PN ---
FOLLOWUP RENAL CONSULTATION DATE: 05/26/2017 L05/26/2017OCATION: The patient is located in room 567. REQUESTED BY: Víctor Marie MD REASON FOR FOLLOWUP: Hyponatremia. SUBJECTIVE: Mrs. Diana Espino is a 76-year-old elderly, very pleasant [place] female with a past medical history significant for hypertension, hyperlipidemia, hyperthyroidism, also history of hyperthyroidism, myelodysplastic syndrome, gastritis, was admitted with severe diarrhea and low H and H and subsequently patient was found to have a C. diff. colitis and also received transfusion. Patient has a persistent hyponatremia. Her initial renal consult requested for evaluation of hyponatremia. Patient was given 1 dose of tolvaptan for possible SIADH. Serum sodium improved to122, 135, which was more than expected her serum sodium, and subsequently the patient was given D5W 500 mL bolus and also started on D5W 80 mL per hour to improve the serum sodium from 135 to around 127, 128, but IV fluid was continued, and next morning, her serum sodium was 121. IV fluids was discontinued, and patient was started on high-protein diet Nepro, ProStat, and also sodium chloride tablet, and given tolvaptan 15mg and serum sodium this morning increased to 126. The patient is not in acute distress. Denies any headache, dizziness, and denies any chest pain, palpitation. Denies any fever or cough. The patient is being discharged this evening. PHYSICAL EXAMINATION: GENERAL: Mrs. Diana Espino is a 76-year-old elderly female, moderately built, moderately nourished, not in distress. VITAL SIGNS: As follows: Blood pressure 132/72, pulse 96, respiration 20, temperature 99.9, saturation 99%. Height 5 feet 2 inches. Weight is 136 pounds. HEENT: Pupils are normal and reactive to light and accommodation. Conjunctivae slightly pale. Sclerae anicteric. Tongue is moist. Trachea is midline. LUNGS: Symmetric on both sides. Bilateral breath sounds present. Bilateral basilar crackles present. CARDIOVASCULAR SYSTEM: [place] at the fifth intercostal space, midclavicular line. S1 and S2 audible. No murmur or gallop. ABDOMEN: Normal in appearance, soft, tympanic. No guarding. No rigidity. No hepatosplenomegaly. CENTRAL NERVOUS SYSTEM: The patient is alert, awake, oriented x3. Nonfocal neuro examination. Cranial nerves II through XII are grossly intact. Sensory and motor system is within normal limits. EXTREMITIES: No cyanosis, no clubbing, trace edema in both lower extremities. MEDICATIONS: Her current medications include as follows: Tapazole 5 mg p.o. daily, Norvasc 5 mg daily, multivitamin one tablet daily, Eliquis 5 mg p.o. b.i.d., vancomycin 125 mg p.o. q. 6 hours. LABORATORY DATA: Include as follows. As of 05/24/2017, WBC 6.1, hemoglobin 9.8, hematocrit is 28.7, platelets 542. As of 05/23/2017, the sodium is 120,as of 05/24/2017 was 135, as of 05/25/2017 sodium was 121. BMP as of 05/26/2017, sodium is 126, potassium 3.3, chloride 93, CO2 of 30, BUN 4, creatinine 0.5, glucose 114, calcium 7.4. ASSESSMENT AND PLAN: In summary, Mrs. Espino is a 76-year-old elderly very pleasant [place] female with a history of myelodysplastic syndrome, hypertension, and hyperthyroidism, was admitted with diarrhea and found to have Clostridium difficile colitis and also history of pulmonary embolism on Eliquis, myelodysplastic syndrome, anemia status post transfusion with low serum sodium. 1. Hyponatremia, most likely secondary to syndrome of inappropriate antidiuretic hormone secretion,etiology is not clear. 2. Hypertension. 3. Anemia secondary to myelodysplastic syndrome. PLAN: Continue sodium chloride tablet 1 gm three times a day, tolvaptan 15 mg p.o. x1 dose if possible prior to the discharge. Patient can be followed in the office in one to two weeks, and follow with PMD, Dr. Víctor Marie. Rehan Dos Santos MD
== END 2017-05-26 20:11 | disposition home or self-care (01) | DRG 371 ==
LOC: C.ER 15:10 → C.9E 20:42 → C.9I 23:06 → C.5S 05-20 08:52
PROVIDERS: ADMIT Internal Medicine; ATTEND Internal Medicine
PROC: 30233N1 Transfusion of Nonautologous Red Blood Cells into Peripheral Vein, Percutaneous Approach (ICD-10-PCS; principal; 2017-05-23)
DX: A04.72 Enterocolitis due to Clostridium difficile, not specified as recurrent (principal); I26.99 Other pulmonary embolism without acute cor pulmonale; I95.9 Hypotension, unspecified; E86.0 Dehydration; E87.6 Hypokalemia; E22.2 Syndrome of inappropriate secretion of antidiuretic hormone; J44.0 Chronic obstructive pulmonary disease with (acute) lower respiratory infection; D46.20 Refractory anemia with excess of blasts, unspecified; E05.90 Thyrotoxicosis, unspecified without thyrotoxic crisis or storm; I10 Essential (primary) hypertension; E03.9 Hypothyroidism, unspecified; E78.00 Pure hypercholesterolemia, unspecified; Z87.891 Personal history of nicotine dependence; Z79.01 Long term (current) use of anticoagulants; J20.9 Acute bronchitis, unspecified

== ENCOUNTER 2017-06-06 17:10 | Inpatient (IN) | payer MEDICARE, OTHER ==
[2017-06-06 17:10] VITALS: BMI 23.1
[2017-06-06] MEDS ORDERED: Acetaminophen 650mg/20.3ml solution UD PO STA (18:02)
[2017-06-06] MEDS ORDERED: Sodium Chloride 0.9% 1,000 ML IV ONE (18:02)
[2017-06-06] MEDS ORDERED: Piperacillin/Tazobact 3.375 gm 100 ML IVPB STA (18:03)
--- NOTE | 2017-06-06 18:09 | C.PDOC ---
History Of Present Illness 76 year old female, with PMHx of myelodysplasia syndrome, PE on Coumadin, and anemia, presents to ED for evaluation. Pt was rapid response from infusion center. Pt had spiked a fever, had chills, and became short of breath with mild cough after transfusion, and was given Lasix, and Solu-Medrol. Pt denies getting flu vaccination. No other complaints. Time Seen by Provider: 06/06/17 17:56 Chief Complaint (Nursing): Shortness Of Breath History Per: Patient History/Exam Limitations: no limitations Past Medical History Reviewed: Historical Data, Nursing Documentation, Vital Signs Vital Signs: Last Vital Signs Temp 99.7 F H 06/09/17 04:00 Pulse 95 H 06/09/17 04:00 Resp 20 06/09/17 04:00 BP 112/70 06/09/17 04:00 Pulse Ox 99 06/09/17 04:00 - Medical History PMH: Anemia, CHF, Gastritis, HTN, Hypercholesterolemia, Hyperthyroidism, Hypothyroidism, Pneumonia, Pulmonary Embolism Denies: Chronic Kidney Disease - [facility] Procedures TRANSFUSE NONAUT RED BLOOD CELLS IN PERIPH VEIN, PERC (05/14/17) Family History: States: Unknown Family Hx - Social History Hx Alcohol Use: No Hx Substance Use: No - Immunization History Hx Tetanus Toxoid Vaccination: No Hx Influenza Vaccination: No Hx Pneumococcal Vaccination: No Review Of Systems Except As Marked, All Systems Reviewed And Found Negative. Constitutional: Positive for: Fever, Chills Cardiovascular: Negative for: Chest Pain, Palpitations Respiratory: Positive for: Cough, Shortness of Breath Physical Exam - Physical Exam Appears: Non-toxic, No Acute Distress Skin: Normal Color, Warm, Dry Head: Atraumatic, Normacephalic Eye(s): bilateral: Normal Inspection Oral Mucosa: Moist Neck: Supple Cardiovascular: Rhythm Regular, No Murmur Respiratory: No Accessory Muscle Use, No Rales, No Rhonchi, Wheezing (scattered) Gastrointestinal/Abdominal: Soft, No Tenderness Extremity: Normal ROM, No Pedal Edema, No Deformity Neurological/Psych: Oriented x3, Normal Speech ED Course And Treatment - Laboratory Results Result Diagrams: 06/06/17 18:54 06/08/17 07:45 ECG: Interpreted By Me, Viewed By Me ECG Rhythm: Sinus Rhythm Interpretation Of ECG: PACs. No ST/T wave changes. Rate From EC (BPM) O2 Sat by Pulse Oximetry: 97 (RA) Pulse Ox Interpretation: Normal Medical Decision Making Medical Decision Making: ro pna, influenza, chf- labs imaging pending pt covered empiricall on arrival with fever. ?opacity left heart border on cxr. case discussed with dr kay, requests dr marie admission. case discussed with dr marie accepts. Disposition - Disposition Disposition: HOSPITALIZED Disposition Time: 07:00 Condition: FAIR - Clinical Impression Clinical Impression: Sepsis, NSTEMI (non-ST elevated myocardial infarction), CHF (congestive heart failure) - Scribe Statement The provider has reviewed the documentation as recorded by the Scribe Francesca Hussein All medical record entries made by the Scribe were at my direction and personally dictated by me. I have reviewed the chart and agree that the record accurately reflects my personal performance of the history, physical exam, medical decision making, and the department course for this patient. I have also personally directed, reviewed, and agree with the discharge instructions and disposition. Decision To Admit - Pt Status Changed To: Hospital Disposition Of: Inpatient - Admit Certification Admit to Inpatient:: After my assessment, the patient will require hospitalization for at least two midnights. This is because of the severity of symptoms shown, intensity of services needed, and/or the medical risk in this patient being treated as an outpatient. - InPatient: Physician Admission Certification: I certify that this patient requires 2 or more midnights of care for the following reason:: nstemi, needs cards eval, and iv antibiocs for sepsis - . Bed Request Type: Telemetry Admitting Physician: Víctor Marie Patient Diagnosis: Sepsis, NSTEMI (non-ST elevated myocardial infarction), CHF (congestive heart failure)
[2017-06-06] MEDS ORDERED: Sodium Chloride 0.9% 1,000 ML ONE (18:32)
[2017-06-06 18:58] LABS: BASO % 0.4 % (0.0-2.0); EOS # 0.4 K/uL (0.0-0.7); HEMOGLOBIN 9.9 g/dL (11.0-16.0); LYMPH # 0.2 K/uL (1.0-4.3); MEAN CELL VOLUME 82.2 fL (81.0-99.0); MONO # 0.1 K/uL (0.0-0.8); NRBC % 0.2 % (0.0-2.0)
[2017-06-06 19:02] LABS: VENOUS BLOOD GAS PCO2 31 mmHg (40-60); VENOUS BLOOD GAS PO2 73 mm/Hg (30-55); VENOUS BLOOD PH 7.49 (7.32-7.43)
[2017-06-06 19:06] LABS: INR 1.5; PROTHROMBIN TIME 16.7 SECONDS (9.7-12.2)
[2017-06-06 19:07] LABS: EOS % 4.4 % (0.0-4.0); LYMPH % 2.1 % (20.0-40.0); MEAN CORPUSCULAR HEMOGLOBIN 28.5 pg (27.0-31.0); MEAN CORPUSCULAR HGB CONC 34.7 g/dL (33.0-37.0); MEAN PLATELET VOLUME 9.3 fL (7.2-11.7); MONO % 1.2 % (0.0-10.0); NEUT % 91.9 % (50.0-75.0); PLATELET COUNT 441 K/uL (130-400); RBC 3.47 Mil/uL (3.80-5.20); RED CELL DISTRIBUTION WIDTH 17.8 % (11.5-14.5); WHITE BLOOD COUNT 9.8 K/uL (4.8-10.8)
[2017-06-06 19:18] LABS: ALB/GLOB RATIO 0.7 (1.0-2.1); ALT/SGPT 23 U/L (9-52); AST/SGOT 24 U/L (14-36); BLOOD UREA NITROGEN 8 mg/dL (7-17); GFR AFRICAN-AMERICAN > 60; GFR NON-AFRICAN AMERICAN > 60
[2017-06-06 19:26] LABS: B-TYPE NATRIURETIC PEPTIDE 3080 pg/mL (0-900)
[2017-06-06] MEDS ORDERED: Enoxaparin 150 mg Syringe SC STA (19:28)
[2017-06-06] MEDS ORDERED: Enoxaparin 60 mg Syringe ONE (19:40)
[2017-06-06] MEDS ORDERED: Aspirin 325 mg EC Tablets PO ONE (19:40)
[2017-06-06 20:50] LABS: BANDS 5 % (0-2); BASOPHIL 1 % (0-2); EOSINOPHIL 4 % (0-4); LYMPHOCYTE 11 % (20-40); MONOCYTE 1 % (0-10); NEUTROPHIL 78 % (50-75); TOTAL CELLS COUNTED 100
[2017-06-06 20:51] LABS: ANISOCYTOSIS SLIGHT; PLATELET ESTIMATE SLIGHTLY INCREASED (NORMAL); POIKILOCYTOSIS SLIGHT
[2017-06-06 20:59] LABS: URINE BILIRUBIN NEGATIVE (NEGATIVE); URINE BLOOD NEGATIVE (NEGATIVE); URINE CLARITY Clear (Clear); URINE COLOR Yellow (YELLOW); URINE GLUCOSE (UA) NORMAL (Normal); URINE LEUKOCYTE ESTERASE NEG Leu/uL (Negative); URINE NITRATE NEGATIVE (NEGATIVE); URINE PROTEIN NEGATIVE (NEGATIVE); URINE UROBILINOGEN NORMAL mg/dL (0.2-1.0)
[2017-06-06] MEDS ORDERED: Piperacill/Tazo 3.375gm in Dex 3.375 GM/50 ML BAG IVPB ONE (21:00)
[2017-06-06] MEDS ORDERED: Vancomycin 1 gm/NS 200 ml 1 GM/200 ML BAG IVPB ONE (21:00)
[2017-06-07 03:17] LABS: CK-MB 2.64 ng/mL (0.0-3.38); TROPONIN I 0.274 ng/mL (0.00-0.120)
--- NOTE | 2017-06-07 06:36 | RAD ---
Chest x-ray single frontal view History: Chest pain. Comparison: 04/21/2017 Findings: Diffuse increased interstitial lung markings. Biapical pleural thickening with upper lobe granulomatous changes. Patchy increased markings at the left lung base. Bilateral hilar prominence. Tortuous ectatic aorta. Cardiomegaly. Degenerative changes in the spine and shoulders. Impression: Moderate venous congestion. Moderate bibasilar airspace opacities. Small bilateral pleural effusions. More consolidative changes in the left hilar region and right infrahilar region. Right paratracheal airspace opacity. Tortuous ectatic aorta. Mild cardiomegaly.
--- NOTE | 2017-06-07 07:51 | CP.PCM.HP ---
History of Present Illness - History of Present Illness History of Present Illness: CC: Short of breath 76 y/o female with Myelodysplastic Syndrome, Recent pulmonary Embolism, ? Hyperthyroidism and admitted this month for C diff infection. Patient was having fever and dry cough. She was in transfusion center and spike a fever, short of breath. Rapid response was called and pt was admitted for ? CHF/ sepsis. Present on Admission - Present on Admission Any Indicators Present on Admission: Yes History of DVT/PE: No History of Uncontrolled Diabetes: No Urinary Catheter: No Decubitus Ulcer Present: No Review of Systems - Review of Systems Systems not reviewed;Unavailable: Acuity of Condition - Constitutional Constitutional: absent: Anorexia, Night Sweats, Sleep Apnea, Weakness - EENT Eyes: absent: Blurred Vision, Loss of Peripheral Vision, Sees Flashes Ears: absent: Ear Discharge, Ear Pain, Disequilibrium, Dizziness Nose/Mouth/Throat: absent: Nasal Congestion, Nasal Discharge, Post Nasal Drip, Change in Voice, Mouth Lesions, Facial Pain - Breasts Breasts: absent: Change in Shape, Nipple Discharge, Skin Changes - Cardiovascular Cardiovascular: absent: Dyspnea, Irregular Heart Rhythm, Leg Edema, Palpitations , Pedal Edema - Respiratory Respiratory: absent: Cough, Dyspnea on Exertion, Chest Congestion, Change in Mucous Color - Gastrointestinal Gastrointestinal: absent: Cramping, Diarrhea, Dyspepsia, Dysphagia, Heartburn, Nausea, Vomiting - Genitourinary Genitourinary: Nocturia. absent: Pyuria, Urinary Urgency, Bladder Distension - Musculoskeletal Musculoskeletal: absent: Abnormal Gait, Limited Range of Motion, Neck Pain, Stiffness - Integumentary Integumentary: absent: Rash, Swelling, Wounds - Endocrine Endocrine: absent: Change in Libido, Fatigue, Increase in Ring/Shoe/Hat Size, Palpitations Past Patient History - Infectious Disease Hx of Infectious Diseases: None - Past Medical History & Family History Past Medical History?: Yes - Past Social History Smoking Status: Never Smoked - CARDIAC Hx Congestive Heart Failure: Yes Hx Hypercholesterolemia: Yes Hx Hypertension: Yes - PULMONARY Hx Pneumonia: Yes Hx Pulmonary Embolism: Yes - NEUROLOGICAL Hx Neurological Disorder: No - HEENT Hx HEENT Problems: No - RENAL Hx Chronic Kidney Disease: No - ENDOCRINE/METABOLIC Hx Hyperthyroidism: Yes Hx Hypothyroidism: Yes - HEMATOLOGICAL/ONCOLOGICAL Hx Anemia: Yes - INTEGUMENTARY Hx Dermatological Problems: No - MUSCULOSKELETAL/RHEUMATOLOGICAL Hx Musculoskeletal Disorders: Yes Hx Falls: Yes - GASTROINTESTINAL Hx Gastritis: Yes - GENITOURINARY/GYNECOLOGICAL Hx Genitourinary Disorders: No - PSYCHIATRIC Hx Substance Use: No - SURGICAL HISTORY Hx Surgeries: No - ANESTHESIA Hx Anesthesia: No Hx Anesthesia Reactions: No Hx Malignant Hyperthermia: No Meds Allergies/Adverse Reactions: Allergies Allergy/AdvReac Type Severity Reaction Status Date / Time No Known Allergies Allergy Verified 06/06/17 17:24 Physical Exam - Constitutional Appears: No Acute Distress - Eye Exam Eye Exam: Normal appearance - ENT Exam ENT Exam: Mucous Membranes Dry, Normal Oropharynx - Neck Exam Neck exam: Positive for: Full Rom. Negative for: Lymphadenopathy, Thyromegaly - Respiratory Exam Respiratory Exam: Decreased Breath Sounds ((+) rales on left midlung/ base), Rales, Rhonchi. absent: Wheezes - Cardiovascular Exam Cardiovascular Exam: +S1, +S2. absent: Gallop, REGULAR RHYTHM, JVD, Systolic Murmur - GI/Abdominal Exam GI & Abdominal Exam: Soft. absent: Rigid, Tenderness - Extremities Exam Extremities exam: Positive for: full ROM, normal capillary refill. Negative for : calf tenderness, joint swelling Results - Vital Signs Recent Vital Signs: Last Vital Signs Temp 97.0 F L 06/06/17 23:55 Pulse 101 H 06/07/17 06:15 Resp 20 06/07/17 06:15 BP 101/64 06/07/17 06:20 Pulse Ox 100 06/07/17 06:15 - Labs Result Diagrams: 06/06/17 18:54 06/06/17 18:54 Labs: Laboratory Results - last 24 hr 06/06/17 06/06/17 06/06/17 18:54 18:54 18:54 WBC 9.8 RBC 3.47 L Hgb 9.9 L Hct 28.6 L MCV 82.2 MCH 28.5 MCHC 34.7 RDW 17.8 H Plt Count 441 H MPV 9.3 Neut % (Auto) 91.9 H Lymph % (Auto) 2.1 L [place] % (Auto) 1.2 Eos % (Auto) 4.4 H Baso % (Auto) 0.4 Neut # 9.0 H Lymph # 0.2 L [place] # 0.1 Eos # 0.4 Baso # 0.0 Neutrophils % (Manual) 78 H Band Neutrophils % 5 H Lymphocytes % (Manual) 11 L Monocytes % (Manual) 1 Eosinophils % (Manual) 4 Basophils % (Manual) 1 Platelet Estimate Slightly increased H Poikilocytosis (manual Slight Anisocytosis (manual) Slight PT 16.7 H INR 1.5 APTT 36 H pO2 VBG pH VBG pCO2 VBG HCO3 VBG Total CO2 VBG O2 Sat (Calc) VBG Base Excess VBG Potassium Glucose Lactate Sodium 121 L Potassium 3.6 Chloride 89 L Carbon Dioxide 24 Anion Gap 11 BUN 8 Creatinine 0.5 L Est GFR ( Amer) > 60 Est GFR (Non-Af Amer) > 60 Random Glucose 150 H Calcium 8.0 L Total Bilirubin 2.4 H AST 24 ALT 23 Alkaline Phosphatase 137 H D Total Creatine Kinase CK-MB (Mass) Troponin I 0.2490 H* NT-Pro-B Natriuret Pep 3080 H Total Protein 7.3 Albumin 3.0 L D Globulin 4.3 H Albumin/Globulin Ratio 0.7 L TSH 3rd Generation Venous Blood Potassium Urine Color Urine Clarity Urine pH Ur Specific [place] Urine Protein Urine Glucose (UA) Urine Ketones Urine Blood Urine Nitrate Urine Bilirubin Urine Urobilinogen Ur Leukocyte Esterase Urine WBC (Auto) Urine RBC (Auto) Influenza Typ A,B (EIA) 06/06/17 06/06/17 06/06/17 18:56 18:59 20:46 WBC RBC Hgb Hct MCV MCH MCHC RDW Plt Count MPV Neut % (Auto) Lymph % (Auto) [place] % (Auto) Eos % (Auto) Baso % (Auto) Neut # Lymph # [place] # Eos # Baso # Neutrophils % (Manual) Band Neutrophils % Lymphocytes % (Manual) Monocytes % (Manual) Eosinophils % (Manual) Basophils % (Manual) Platelet Estimate Poikilocytosis (manual Anisocytosis (manual) PT INR APTT pO2 73 H VBG pH 7.49 H VBG pCO2 31 L VBG HCO3 25.7 VBG Total CO2 24.6 VBG O2 Sat (Calc) 97.7 H VBG Base Excess 1.0 VBG Potassium 3.5 L Glucose 142 H Lactate 2.0 Sodium 130.0 L Potassium Chloride 95.0 L Carbon Dioxide Anion Gap BUN Creatinine Est GFR ( Amer) Est GFR (Non-Af Amer) Random Glucose Calcium Total Bilirubin AST ALT Alkaline Phosphatase Total Creatine Kinase CK-MB (Mass) Troponin I NT-Pro-B Natriuret Pep Total Protein Albumin Globulin Albumin/Globulin Ratio TSH 3rd Generation Venous Blood Potassium 3.5 L Urine Color Yellow Urine Clarity Clear Urine pH 5.0 Ur Specific [place] 1.006 Urine Protein Negative Urine Glucose (UA) Normal Urine Ketones Negative Urine Blood Negative Urine Nitrate Negative Urine Bilirubin Negative Urine Urobilinogen Normal Ur Leukocyte Esterase Neg Urine WBC (Auto) 1 Urine RBC (Auto) < 1 Influenza Typ A,B (EIA) Negative for flu a/b 06/06/17 06/07/17 21:59 02:23 WBC RBC Hgb Hct MCV MCH MCHC RDW Plt Count MPV Neut % (Auto) Lymph % (Auto) [place] % (Auto) Eos % (Auto) Baso % (Auto) Neut # Lymph # [place] # Eos # Baso # Neutrophils % (Manual) Band Neutrophils % Lymphocytes % (Manual) Monocytes % (Manual) Eosinophils % (Manual) Basophils % (Manual) Platelet Estimate Poikilocytosis (manual Anisocytosis (manual) PT INR APTT pO2 VBG pH VBG pCO2 VBG HCO3 VBG Total CO2 VBG O2 Sat (Calc) VBG Base Excess VBG Potassium Glucose Lactate Sodium Potassium Chloride Carbon Dioxide Anion Gap BUN Creatinine Est GFR ( Amer) Est GFR (Non-Af Amer) Random Glucose Calcium Total Bilirubin AST ALT Alkaline Phosphatase Total Creatine Kinase 22 L CK-MB (Mass) 2.64 Troponin I 0.2740 H* NT-Pro-B Natriuret Pep Total Protein Albumin Globulin Albumin/Globulin Ratio TSH 3rd Generation 1.13 Venous Blood Potassium Urine Color Urine Clarity Urine pH Ur Specific [place] Urine Protein Urine Glucose (UA) Urine Ketones Urine Blood Urine Nitrate Urine Bilirubin Urine Urobilinogen Ur Leukocyte Esterase Urine WBC (Auto) Urine RBC (Auto) Influenza Typ A,B (EIA) - EKG Data EKG Interpreted by: Myself Rate: Normal Assessment & Plan - Assessment and Plan (Free Text) Assessment: (+) Pneumonia -as per CXR; Recent C diff infection\ (+) cardiac enzyme and PAF noted at 11 PM Myelodysplasia; Hyponatremia Antibiotic as per ID (CT scan on 04/14 w/ pulm nodule) Metoprolol and Elaquis
[2017-06-07] MEDS: Ranolazine 500 mg Extended Release Tablets PO SCH ×2 (09:30→19:00)
[2017-06-07] MEDS: Metoprolol Succinate 25 mg XL Tab PO SCH ×2 (10:35→19:00)
[2017-06-07] MEDS: Vancomycin 125 MG/5 ML SOLN (ORAL/RECTAL) PO SCH ×4 (10:37→21:46)
[2017-06-07 11:14] LABS: CK-MB 2.21 ng/mL (0.0-3.38)
[2017-06-07 11:47] LABS: T4 7.04 ug/dL (5.5-11.0)
--- NOTE | 2017-06-07 12:59 | CP.PCM.CON ---
History of Present Illness - History of Present Illness History of Present Illness: pt is seen and examined, full consult is dictated #[id number] Past Patient History - Infectious Disease Hx of Infectious Diseases: None - Past Medical History & Family History Past Medical History?: Yes - Past Social History Smoking Status: Never Smoked - CARDIAC Hx Congestive Heart Failure: Yes Hx Hypercholesterolemia: Yes Hx Hypertension: Yes - PULMONARY Hx Pneumonia: Yes Hx Pulmonary Embolism: Yes - NEUROLOGICAL Hx Neurological Disorder: No - HEENT Hx HEENT Problems: No - RENAL Hx Chronic Kidney Disease: No - ENDOCRINE/METABOLIC Hx Hyperthyroidism: Yes Hx Hypothyroidism: Yes - HEMATOLOGICAL/ONCOLOGICAL Hx Anemia: Yes - INTEGUMENTARY Hx Dermatological Problems: No - MUSCULOSKELETAL/RHEUMATOLOGICAL Hx Musculoskeletal Disorders: Yes Hx Falls: Yes - GASTROINTESTINAL Hx Gastritis: Yes - GENITOURINARY/GYNECOLOGICAL Hx Genitourinary Disorders: No - PSYCHIATRIC Hx Substance Use: No - SURGICAL HISTORY Hx Surgeries: No - ANESTHESIA Hx Anesthesia: No Hx Anesthesia Reactions: No Hx Malignant Hyperthermia: No Meds Allergies/Adverse Reactions: Allergies Allergy/AdvReac Type Severity Reaction Status Date / Time No Known Allergies Allergy Verified 06/06/17 17:24 - Medications Medications: Current Medications Apixaban (Eliquis) 5 mg PO BID [facility] Last Admin: 06/07/17 09:29 Dose: 5 mg Aspirin (Aspirin Chewable) 81 mg PO DAILY [facility] Last Admin: 06/07/17 09:30 Dose: 81 mg Metoprolol Succinate (Toprol Xl) 25 mg PO BID [facility] Last Admin: 06/07/17 10:35 Dose: Not Given Pneumococcal Polyvalent Vaccine (Pneumovax 23 Vaccine) 0.5 ml IM .ONCE ONE Stop: 06/09/17 12:01 Ranolazine (Ranexa) 500 mg PO BID [facility] Last Admin: 06/07/17 09:30 Dose: 500 mg Vancomycin HCl (Vancocin (Oral Or Rectal Use)) 250 mg PO QID [facility] Last Admin: 06/07/17 10:37 Dose: 250 mg Results - Vital Signs Recent Vital Signs: Last Vital Signs Temp 97.1 F L 06/07/17 07:00 Pulse 92 H 06/07/17 10:00 Resp 20 06/07/17 07:00 BP 97/63 L 06/07/17 07:00 Pulse Ox 98 06/07/17 07:00 - Labs Result Diagrams: 06/06/17 18:54 06/07/17 13:57 Labs: Laboratory Results - last 24 hr 06/06/17 06/06/17 06/06/17 18:54 18:54 18:54 WBC 9.8 RBC 3.47 L Hgb 9.9 L Hct 28.6 L MCV 82.2 MCH 28.5 MCHC 34.7 RDW 17.8 H Plt Count 441 H MPV 9.3 Neut % (Auto) 91.9 H Lymph % (Auto) 2.1 L [place] % (Auto) 1.2 Eos % (Auto) 4.4 H Baso % (Auto) 0.4 Neut # 9.0 H Lymph # 0.2 L [place] # 0.1 Eos # 0.4 Baso # 0.0 Neutrophils % (Manual) 78 H Band Neutrophils % 5 H Lymphocytes % (Manual) 11 L Monocytes % (Manual) 1 Eosinophils % (Manual) 4 Basophils % (Manual) 1 Platelet Estimate Slightly increased H Poikilocytosis (manual Slight Anisocytosis (manual) Slight PT 16.7 H INR 1.5 APTT 36 H pO2 VBG pH VBG pCO2 VBG HCO3 VBG Total CO2 VBG O2 Sat (Calc) VBG Base Excess VBG Potassium Glucose Lactate Sodium 121 L Potassium 3.6 Chloride 89 L Carbon Dioxide 24 Anion Gap 11 BUN 8 Creatinine 0.5 L Est GFR ( Amer) > 60 Est GFR (Non-Af Amer) > 60 Random Glucose 150 H Calcium 8.0 L Total Bilirubin 2.4 H AST 24 ALT 23 Alkaline Phosphatase 137 H D Total Creatine Kinase CK-MB (Mass) Troponin I 0.2490 H* NT-Pro-B Natriuret Pep 3080 H Total Protein 7.3 Albumin 3.0 L D Globulin 4.3 H Albumin/Globulin Ratio 0.7 L Thyroxine (T4) TSH 3rd Generation Venous Blood Potassium Urine Color Urine Clarity Urine pH Ur Specific [place] Urine Protein Urine Glucose (UA) Urine Ketones Urine Blood Urine Nitrate Urine Bilirubin Urine Urobilinogen Ur Leukocyte Esterase Urine WBC (Auto) Urine RBC (Auto) Influenza Typ A,B (EIA) 06/06/17 06/06/17 06/06/17 18:56 18:59 20:46 WBC RBC Hgb Hct MCV MCH MCHC RDW Plt Count MPV Neut % (Auto) Lymph % (Auto) [place] % (Auto) Eos % (Auto) Baso % (Auto) Neut # Lymph # [place] # Eos # Baso # Neutrophils % (Manual) Band Neutrophils % Lymphocytes % (Manual) Monocytes % (Manual) Eosinophils % (Manual) Basophils % (Manual) Platelet Estimate Poikilocytosis (manual Anisocytosis (manual) PT INR APTT pO2 73 H VBG pH 7.49 H VBG pCO2 31 L VBG HCO3 25.7 VBG Total CO2 24.6 VBG O2 Sat (Calc) 97.7 H VBG Base Excess 1.0 VBG Potassium 3.5 L Glucose 142 H Lactate 2.0 Sodium 130.0 L Potassium Chloride 95.0 L Carbon Dioxide Anion Gap BUN Creatinine Est GFR ( Amer) Est GFR (Non-Af Amer) Random Glucose Calcium Total Bilirubin AST ALT Alkaline Phosphatase Total Creatine Kinase CK-MB (Mass) Troponin I NT-Pro-B Natriuret Pep Total Protein Albumin Globulin Albumin/Globulin Ratio Thyroxine (T4) TSH 3rd Generation Venous Blood Potassium 3.5 L Urine Color Yellow Urine Clarity Clear Urine pH 5.0 Ur Specific [place] 1.006 Urine Protein Negative Urine Glucose (UA) Normal Urine Ketones Negative Urine Blood Negative Urine Nitrate Negative Urine Bilirubin Negative Urine Urobilinogen Normal Ur Leukocyte Esterase Neg Urine WBC (Auto) 1 Urine RBC (Auto) < 1 Influenza Typ A,B (EIA) Negative for flu a/b 06/06/17 06/07/17 06/07/17 21:59 02:23 07:24 WBC RBC Hgb Hct MCV MCH MCHC RDW Plt Count MPV Neut % (Auto) Lymph % (Auto) [place] % (Auto) Eos % (Auto) Baso % (Auto) Neut # Lymph # [place] # Eos # Baso # Neutrophils % (Manual) Band Neutrophils % Lymphocytes % (Manual) Monocytes % (Manual) Eosinophils % (Manual) Basophils % (Manual) Platelet Estimate Poikilocytosis (manual Anisocytosis (manual) PT INR APTT pO2 VBG pH VBG pCO2 VBG HCO3 VBG Total CO2 VBG O2 Sat (Calc) VBG Base Excess VBG Potassium Glucose Lactate Sodium Potassium Chloride Carbon Dioxide Anion Gap BUN Creatinine Est GFR ( Amer) Est GFR (Non-Af Amer) Random Glucose Calcium Total Bilirubin AST ALT Alkaline Phosphatase Total Creatine Kinase 22 L CK-MB (Mass) 2.64 Troponin I 0.2740 H* NT-Pro-B Natriuret Pep Total Protein Albumin Globulin Albumin/Globulin Ratio Thyroxine (T4) 7.04 TSH 3rd Generation 1.13 1.76 Venous Blood Potassium Urine Color Urine Clarity Urine pH Ur Specific [place] Urine Protein Urine Glucose (UA) Urine Ketones Urine Blood Urine Nitrate Urine Bilirubin Urine Urobilinogen Ur Leukocyte Esterase Urine WBC (Auto) Urine RBC (Auto) Influenza Typ A,B (EIA) 06/07/17 10:08 WBC RBC Hgb Hct MCV MCH MCHC RDW Plt Count MPV Neut % (Auto) Lymph % (Auto) [place] % (Auto) Eos % (Auto) Baso % (Auto) Neut # Lymph # [place] # Eos # Baso # Neutrophils % (Manual) Band Neutrophils % Lymphocytes % (Manual) Monocytes % (Manual) Eosinophils % (Manual) Basophils % (Manual) Platelet Estimate Poikilocytosis (manual Anisocytosis (manual) PT INR APTT pO2 VBG pH VBG pCO2 VBG HCO3 VBG Total CO2 VBG O2 Sat (Calc) VBG Base Excess VBG Potassium Glucose Lactate Sodium Potassium Chloride Carbon Dioxide Anion Gap BUN Creatinine Est GFR ( Amer) Est GFR (Non-Af Amer) Random Glucose Calcium Total Bilirubin AST ALT Alkaline Phosphatase Total Creatine Kinase < 20 L CK-MB (Mass) 2.21 Troponin I 0.2000 H* NT-Pro-B Natriuret Pep Total Protein Albumin Globulin Albumin/Globulin Ratio Thyroxine (T4) TSH 3rd Generation Venous Blood Potassium Urine Color Urine Clarity Urine pH Ur Specific [place] Urine Protein Urine Glucose (UA) Urine Ketones Urine Blood Urine Nitrate Urine Bilirubin Urine Urobilinogen Ur Leukocyte Esterase Urine WBC (Auto) Urine RBC (Auto) Influenza Typ A,B (EIA)
--- NOTE | 2017-06-07 13:16 | CP.PCM.CON ---
History of Present Illness - History of Present Illness History of Present Illness: CC SOB HPI : Acute sob during blood transfusion +chronic paroxysmal afib + trops Review of Systems - Cardiovascular Cardiovascular: Dyspnea on Exertion, Palpitations - Respiratory Respiratory: Dyspnea on Exertion - Musculoskeletal Additional comments: no edema - Neurological Additional comments: no focal deficit Past Patient History - Infectious Disease Hx of Infectious Diseases: None - Past Medical History & Family History Past Medical History?: Yes - Past Social History Smoking Status: Never Smoked - CARDIAC Hx Congestive Heart Failure: Yes Hx Hypercholesterolemia: Yes Hx Hypertension: Yes - PULMONARY Hx Pneumonia: Yes Hx Pulmonary Embolism: Yes - NEUROLOGICAL Hx Neurological Disorder: No - HEENT Hx HEENT Problems: No - RENAL Hx Chronic Kidney Disease: No - ENDOCRINE/METABOLIC Hx Hyperthyroidism: Yes Hx Hypothyroidism: Yes - HEMATOLOGICAL/ONCOLOGICAL Hx Anemia: Yes - INTEGUMENTARY Hx Dermatological Problems: No - MUSCULOSKELETAL/RHEUMATOLOGICAL Hx Musculoskeletal Disorders: Yes Hx Falls: Yes - GASTROINTESTINAL Hx Gastritis: Yes - GENITOURINARY/GYNECOLOGICAL Hx Genitourinary Disorders: No - PSYCHIATRIC Hx Substance Use: No - SURGICAL HISTORY Hx Surgeries: No - ANESTHESIA Hx Anesthesia: No Hx Anesthesia Reactions: No Hx Malignant Hyperthermia: No Meds Allergies/Adverse Reactions: Allergies Allergy/AdvReac Type Severity Reaction Status Date / Time No Known Allergies Allergy Verified 06/06/17 17:24 - Medications Medications: Current Medications Apixaban (Eliquis) 5 mg PO BID [facility] Last Admin: 06/07/17 09:29 Dose: 5 mg Aspirin (Aspirin Chewable) 81 mg PO DAILY [facility] Last Admin: 06/07/17 09:30 Dose: 81 mg Metoprolol Succinate (Toprol Xl) 25 mg PO BID [facility] Last Admin: 06/07/17 10:35 Dose: Not Given Pneumococcal Polyvalent Vaccine (Pneumovax 23 Vaccine) 0.5 ml IM .ONCE ONE Stop: 06/09/17 12:01 Ranolazine (Ranexa) 500 mg PO BID [facility] Last Admin: 06/07/17 09:30 Dose: 500 mg Vancomycin HCl (Vancocin (Oral Or Rectal Use)) 250 mg PO QID [facility] Last Admin: 06/07/17 10:37 Dose: 250 mg Results - Vital Signs Recent Vital Signs: Last Vital Signs Temp 97.1 F L 06/07/17 07:00 Pulse 92 H 06/07/17 10:00 Resp 20 06/07/17 07:00 BP 97/63 L 06/07/17 07:00 Pulse Ox 98 06/07/17 07:00 - Labs Result Diagrams: 06/06/17 18:54 06/06/17 18:54 Labs: Laboratory Results - last 24 hr 06/06/17 06/06/17 06/06/17 18:54 18:54 18:54 WBC 9.8 RBC 3.47 L Hgb 9.9 L Hct 28.6 L MCV 82.2 MCH 28.5 MCHC 34.7 RDW 17.8 H Plt Count 441 H MPV 9.3 Neut % (Auto) 91.9 H Lymph % (Auto) 2.1 L [place] % (Auto) 1.2 Eos % (Auto) 4.4 H Baso % (Auto) 0.4 Neut # 9.0 H Lymph # 0.2 L [place] # 0.1 Eos # 0.4 Baso # 0.0 Neutrophils % (Manual) 78 H Band Neutrophils % 5 H Lymphocytes % (Manual) 11 L Monocytes % (Manual) 1 Eosinophils % (Manual) 4 Basophils % (Manual) 1 Platelet Estimate Slightly increased H Poikilocytosis (manual Slight Anisocytosis (manual) Slight PT 16.7 H INR 1.5 APTT 36 H pO2 VBG pH VBG pCO2 VBG HCO3 VBG Total CO2 VBG O2 Sat (Calc) VBG Base Excess VBG Potassium Glucose Lactate Sodium 121 L Potassium 3.6 Chloride 89 L Carbon Dioxide 24 Anion Gap 11 BUN 8 Creatinine 0.5 L Est GFR ( Amer) > 60 Est GFR (Non-Af Amer) > 60 Random Glucose 150 H Calcium 8.0 L Total Bilirubin 2.4 H AST 24 ALT 23 Alkaline Phosphatase 137 H D Total Creatine Kinase CK-MB (Mass) Troponin I 0.2490 H* NT-Pro-B Natriuret Pep 3080 H Total Protein 7.3 Albumin 3.0 L D Globulin 4.3 H Albumin/Globulin Ratio 0.7 L Thyroxine (T4) TSH 3rd Generation Venous Blood Potassium Urine Color Urine Clarity Urine pH Ur Specific [place] Urine Protein Urine Glucose (UA) Urine Ketones Urine Blood Urine Nitrate Urine Bilirubin Urine Urobilinogen Ur Leukocyte Esterase Urine WBC (Auto) Urine RBC (Auto) Influenza Typ A,B (EIA) 06/06/17 06/06/17 06/06/17 18:56 18:59 20:46 WBC RBC Hgb Hct MCV MCH MCHC RDW Plt Count MPV Neut % (Auto) Lymph % (Auto) [place] % (Auto) Eos % (Auto) Baso % (Auto) Neut # Lymph # [place] # Eos # Baso # Neutrophils % (Manual) Band Neutrophils % Lymphocytes % (Manual) Monocytes % (Manual) Eosinophils % (Manual) Basophils % (Manual) Platelet Estimate Poikilocytosis (manual Anisocytosis (manual) PT INR APTT pO2 73 H VBG pH 7.49 H VBG pCO2 31 L VBG HCO3 25.7 VBG Total CO2 24.6 VBG O2 Sat (Calc) 97.7 H VBG Base Excess 1.0 VBG Potassium 3.5 L Glucose 142 H Lactate 2.0 Sodium 130.0 L Potassium Chloride 95.0 L Carbon Dioxide Anion Gap BUN Creatinine Est GFR ( Amer) Est GFR (Non-Af Amer) Random Glucose Calcium Total Bilirubin AST ALT Alkaline Phosphatase Total Creatine Kinase CK-MB (Mass) Troponin I NT-Pro-B Natriuret Pep Total Protein Albumin Globulin Albumin/Globulin Ratio Thyroxine (T4) TSH 3rd Generation Venous Blood Potassium 3.5 L Urine Color Yellow Urine Clarity Clear Urine pH 5.0 Ur Specific [place] 1.006 Urine Protein Negative Urine Glucose (UA) Normal Urine Ketones Negative Urine Blood Negative Urine Nitrate Negative Urine Bilirubin Negative Urine Urobilinogen Normal Ur Leukocyte Esterase Neg Urine WBC (Auto) 1 Urine RBC (Auto) < 1 Influenza Typ A,B (EIA) Negative for flu a/b 06/06/17 06/07/17 06/07/17 21:59 02:23 07:24 WBC RBC Hgb Hct MCV MCH MCHC RDW Plt Count MPV Neut % (Auto) Lymph % (Auto) [place] % (Auto) Eos % (Auto) Baso % (Auto) Neut # Lymph # [place] # Eos # Baso # Neutrophils % (Manual) Band Neutrophils % Lymphocytes % (Manual) Monocytes % (Manual) Eosinophils % (Manual) Basophils % (Manual) Platelet Estimate Poikilocytosis (manual Anisocytosis (manual) PT INR APTT pO2 VBG pH VBG pCO2 VBG HCO3 VBG Total CO2 VBG O2 Sat (Calc) VBG Base Excess VBG Potassium Glucose Lactate Sodium Potassium Chloride Carbon Dioxide Anion Gap BUN Creatinine Est GFR ( Amer) Est GFR (Non-Af Amer) Random Glucose Calcium Total Bilirubin AST ALT Alkaline Phosphatase Total Creatine Kinase 22 L CK-MB (Mass) 2.64 Troponin I 0.2740 H* NT-Pro-B Natriuret Pep Total Protein Albumin Globulin Albumin/Globulin Ratio Thyroxine (T4) 7.04 TSH 3rd Generation 1.13 1.76 Venous Blood Potassium Urine Color Urine Clarity Urine pH Ur Specific [place] Urine Protein Urine Glucose (UA) Urine Ketones Urine Blood Urine Nitrate Urine Bilirubin Urine Urobilinogen Ur Leukocyte Esterase Urine WBC (Auto) Urine RBC (Auto) Influenza Typ A,B (EIA) 06/07/17 10:08 WBC RBC Hgb Hct MCV MCH MCHC RDW Plt Count MPV Neut % (Auto) Lymph % (Auto) [place] % (Auto) Eos % (Auto) Baso % (Auto) Neut # Lymph # [place] # Eos # Baso # Neutrophils % (Manual) Band Neutrophils % Lymphocytes % (Manual) Monocytes % (Manual) Eosinophils % (Manual) Basophils % (Manual) Platelet Estimate Poikilocytosis (manual Anisocytosis (manual) PT INR APTT pO2 VBG pH VBG pCO2 VBG HCO3 VBG Total CO2 VBG O2 Sat (Calc) VBG Base Excess VBG Potassium Glucose Lactate Sodium Potassium Chloride Carbon Dioxide Anion Gap BUN Creatinine Est GFR ( Amer) Est GFR (Non-Af Amer) Random Glucose Calcium Total Bilirubin AST ALT Alkaline Phosphatase Total Creatine Kinase < 20 L CK-MB (Mass) 2.21 Troponin I 0.2000 H* NT-Pro-B Natriuret Pep Total Protein Albumin Globulin Albumin/Globulin Ratio Thyroxine (T4) TSH 3rd Generation Venous Blood Potassium Urine Color Urine Clarity Urine pH Ur Specific [place] Urine Protein Urine Glucose (UA) Urine Ketones Urine Blood Urine Nitrate Urine Bilirubin Urine Urobilinogen Ur Leukocyte Esterase Urine WBC (Auto) Urine RBC (Auto) Influenza Typ A,B (EIA) Assessment & Plan - Assessment and Plan (Free Text) Assessment: ACS MDS with refractory anemia Afib Hx of PE Plan: Will do cardiac cath if ok w/ heme and renal
[2017-06-07 14:38] LABS: OSMOLALITY,URINE 698 mosm/kg (300-1000)
[2017-06-07 14:53] LABS: BLOOD UREA NITROGEN 13 mg/dL (7-17); CALCIUM 8.3 mg/dl (8.6-10.4); GFR AFRICAN-AMERICAN > 60; GFR NON-AFRICAN AMERICAN > 60
[2017-06-07] MEDS: Piperacill/Tazo 3.375gm in Dex 3.375 GM/50 ML BAG IVPB SCH ×2 (15:45→21:46)
[2017-06-07] MEDS: Sodium Chloride 0.9% 1,000 ML IV SCH (16:28)
[2017-06-08] MEDS: Piperacill/Tazo 3.375gm in Dex 3.375 GM/50 ML BAG IVPB SCH (06:00)
[2017-06-08] MEDS: Sodium Chloride 0.9% 1,000 ML IV SCH ×2 (06:00→22:00)
[2017-06-08 08:12] LABS: BLOOD UREA NITROGEN 11 mg/dL (7-17); CALCIUM 7.8 mg/dl (8.6-10.4); GFR AFRICAN-AMERICAN > 60; GFR NON-AFRICAN AMERICAN > 60
[2017-06-08] MEDS: Metoprolol Succinate 25 mg XL Tab PO SCH ×2 (09:39→17:40)
[2017-06-08] MEDS: Ranolazine 500 mg Extended Release Tablets PO SCH ×2 (09:39→18:00)
[2017-06-08] MEDS: Vancomycin 125 MG/5 ML SOLN (ORAL/RECTAL) PO SCH ×4 (11:00→22:06)
[2017-06-08 13:26] LABS: B-TYPE NATRIURETIC PEPTIDE 11900 pg/mL (0-900)
[2017-06-08] MEDS ORDERED: Potassium Chloride 20 mEq/15 ml LIQ UD PO ONE (13:30)
--- NOTE | 2017-06-08 13:35 | CP.PCM.PN ---
Subjective - Date & Time of Evaluation Date of Evaluation: 06/08/17 Time of Evaluation: 13:35 - Subjective Subjective: pt is seen and examined, follow up consult is dictated #[id number] bmp in am, c/w ivf Objective - Vital Signs/Intake and Output Vital Signs (last 24 hours): Temp Pulse Resp BP Pulse Ox 99.9 F H 94 H 20 114/53 L 99 06/08/17 04:44 06/08/17 07:45 06/08/17 04:44 06/08/17 04:44 06/08/17 04:44 - Medications Medications: Current Medications Apixaban (Eliquis) 5 mg PO BID [facility] Last Admin: 06/08/17 09:38 Dose: 5 mg Aspirin (Aspirin Chewable) 81 mg PO DAILY [facility] Last Admin: 06/08/17 09:38 Dose: 81 mg Sodium Chloride (Sodium Chloride 0.9%) 1,000 mls @ 70 mls/hr IV .[id number] [facility] Last Admin: 06/08/17 06:00 Dose: 70 mls/hr Piperacillin Sod/Tazobactam (Sod 3.375 gm/ Sodium Chloride) 100 mls @ 100 mls/ hr IVPB Q8H [facility] Metoprolol Succinate (Toprol Xl) 25 mg PO BID [facility] Last Admin: 06/08/17 09:39 Dose: 25 mg Pneumococcal Polyvalent Vaccine (Pneumovax 23 Vaccine) 0.5 ml IM .ONCE ONE Stop: 06/09/17 12:01 Ranolazine (Ranexa) 500 mg PO BID [facility] Last Admin: 06/08/17 09:39 Dose: 500 mg Vancomycin HCl (Vancocin (Oral Or Rectal Use)) 250 mg PO QID [facility] Last Admin: 06/08/17 11:00 Dose: 250 mg - Labs Labs: 06/06/17 18:54 06/08/17 07:45 PT 16.7 SECONDS (9.7-12.2) H 06/06/17 18:54 INR 1.5 06/06/17 18:54 APTT 36 SECONDS (21-34) H 06/06/17 18:54
--- NOTE | 2017-06-08 14:49 | CP.PCM.PN ---
Subjective - Date & Time of Evaluation Date of Evaluation: 06/08/17 Time of Evaluation: 14:46 - Subjective Subjective: S: Sleeping. Short of breath. Spoke to family Objective - Vital Signs/Intake and Output Vital Signs (last 24 hours): Temp Pulse Resp BP Pulse Ox 99.9 F H 94 H 20 114/53 L 99 06/08/17 04:44 06/08/17 07:45 06/08/17 04:44 06/08/17 04:44 06/08/17 04:44 - Medications Medications: Current Medications Apixaban (Eliquis) 5 mg PO BID [facility] Last Admin: 06/08/17 09:38 Dose: 5 mg Aspirin (Aspirin Chewable) 81 mg PO DAILY [facility] Last Admin: 06/08/17 09:38 Dose: 81 mg Sodium Chloride (Sodium Chloride 0.9%) 1,000 mls @ 70 mls/hr IV .[id number] [facility] Last Admin: 06/08/17 06:00 Dose: 70 mls/hr Piperacillin Sod/Tazobactam (Sod 3.375 gm/ Sodium Chloride) 100 mls @ 100 mls/ hr IVPB Q8H [facility] Metoprolol Succinate (Toprol Xl) 25 mg PO BID [facility] Last Admin: 06/08/17 09:39 Dose: 25 mg Pneumococcal Polyvalent Vaccine (Pneumovax 23 Vaccine) 0.5 ml IM .ONCE ONE Stop: 06/09/17 12:01 Ranolazine (Ranexa) 500 mg PO BID [facility] Last Admin: 06/08/17 09:39 Dose: 500 mg Vancomycin HCl (Vancocin (Oral Or Rectal Use)) 250 mg PO QID [facility] Last Admin: 06/08/17 11:00 Dose: 250 mg - Labs Labs: 06/06/17 18:54 06/08/17 07:45 PT 16.7 SECONDS (9.7-12.2) H 06/06/17 18:54 INR 1.5 06/06/17 18:54 APTT 36 SECONDS (21-34) H 06/06/17 18:54 - Constitutional Appears: Chronically Ill - Head Exam Head Exam: NORMAL INSPECTION - ENT Exam ENT Exam: Mucous Membranes Dry - Neck Exam Neck Exam: Normal Inspection - Respiratory Exam Respiratory Exam: Decreased Breath Sounds - Cardiovascular Exam Cardiovascular Exam: Tachycardia - GI/Abdominal Exam GI & Abdominal Exam: Soft Assessment and Plan (1) SOB (shortness of breath) Status: Acute (2) Anemia Status: Acute (3) CAD (coronary artery disease) Status: Acute - Assessment and Plan (Free Text) Assessment: A/p : Spoke to family. Condition guarded. Continue medications.
[2017-06-08] MEDS: Piperacillin/Tazobact 3.375 GM in Sodium Chloride 0.9% 100 ML IVPB SCH ×2 (15:24→22:01)
--- NOTE | 2017-06-08 16:36 | CP.PCM.CON ---
History of Present Illness - History of Present Illness History of Present Illness: 76 year old female, with PMHx of myelodysplasia syndrome, PE on Coumadin, and anemia, presents to ED for evaluation. Pt was rapid response from infusion center. Pt had spiked a fever, had chills, and became short of breath with mild cough after transfusion, and was given Lasix, and Solu-Medrol. Pt denies getting flu vaccination. No other complaints. admitted for pneumonia r/o sepsis resp inssuff transfusion reaction MDS s/ p c diff may need cardiac cath as per daughter - Medical History PMH: Anemia, CHF, Gastritis, HTN, Hypercholesterolemia, Hyperthyroidism, Hypothyroidism, Pneumonia, Pulmonary Embolism Denies: Chronic Kidney Disease - [facility] Procedures TRANSFUSE NONAUT RED BLOOD CELLS IN PERIPH VEIN, PERC (05/14/17) Family History: States: Unknown Family Hx - Social History Hx Alcohol Use: No Hx Substance Use: No Review of Systems - Constitutional Constitutional: As Per HPI - EENT Eyes: absent: As Per HPI, Blind Spots, Blurred Vision, Change in Vision, Decreased Night Vision, Diplopia, Discharge, Dry Eye, Exophthalmos, Floaters, Irritation, Itchy Eyes, Loss of Peripheral Vision, Pain, Photophobia, Requires Corrective Lenses, Sees Flashes, Spots in Vision, Tunnel Vision, Other Visual Disturbances, Loss of Vision, Other Ears: absent: As Per HPI, Decreased Hearing, Ear Discharge, Ear Pain, Tinnitus, Abnormal Hearing, Disequilibrium, Dizziness, Other Nose/Mouth/Throat: absent: As Per HPI, Epistaxis, Nasal Congestion, Nasal Discharge, Nasal Obstruction, Nasal Trauma, Nose Pain, Post Nasal Drip, Sinus Pain, Sinus Pressure, Bleeding Gums, Change in Voice, Dental Pain, Dry Mouth, Dysphagia, Halitosis, Hoarsness, Lip Swelling, Mouth Lesions, Mouth Pain, Odynophagia, Sore Throat, Throat Swelling, Tongue Swelling, Facial Pain, Neck Pain, Neck Mass, Other - Breasts Breasts: absent: As Per HPI, Change in Shape, Mass, Pain, Nipple Discharge, Nipple Inversion, Skin Changes, Swelling, Other - Cardiovascular Cardiovascular: As Per HPI - Respiratory Respiratory: As Per HPI - Gastrointestinal Gastrointestinal: absent: As Per HPI, Abdominal Pain, Belching, Bloating, Change in Bowel Habits, Change in Stool Character, Coffee Ground Emesis, Constipation, Cramping, Diarrhea, Dyspepsia, Dysphagia, Early Satiety, Excessive Flatus, Fecal Incontinence, Heartburn, Hematemesis, Hematochezia, Loose Stools, Melena, Nausea, Odynophagia, Temesmus, Vomiting, Other - Genitourinary Genitourinary: absent: As Per HPI, Change in Urinary Stream, Difficulty Urinating, Dysuria, Flank Pain, Hematuria, Pyuria, Nocturia, Urinary Incontinence, Urinary Frequency, Urinary Hesitance, Urinary Urgency, Voiding Freq/Small Amts, Freq UTI, Hx Renal/Bladder Calculi, Hx /Renal Surgery, Bladder Distension, Other - Reproductive: Female Reproductive:Female: absent: As Per HPI, Amenorrhea, Amenorrhea/ Control, Currently Menstual, Cycle <21 Days, Cycle >35 Days, Cycle Variable, Menses 1-7 Days, Menses >/= 8 Days, Menses Variable, Cycle > 4 Weeks Between, No Menses for 6 Months, Heavy Menses, Light Menses, Normal Menses, Spotting Between Cycles , S/P Hysterectomy, Menopausal, Post Menopausal, Premenarche, Abnormal Vaginal Bleeding, Dysmenorrhea, Dyspareunia, Genital Lesions, Genital Pruritis, Pelvic Pain, Prolapse Symptoms, Sexual Dysfunction, Vaginal Discharge, Vaginal Dryness , Vaginal Odor, Vaginal Pruritis, Other - Menstruation Menstruation: absent: As Per HPI, Amenorrhea, Amenorrhea/ Control, Currently Menstual, Cycle <21 Days, Cycle >35 Days, Cycle Variable, Menses 1-7 Days, Menses >/= 8 Days, Menses Variable, Cycle > 4 Weeks Between, No Menses for 6 Months, Heavy Menses, Light Menses, Normal Menses, Spotting Between Cycles , S/P Hysterectomy, Menopausal, Post Menopausal, Premenarche, Abnormal Vaginal Bleeding, Dysmenorrhea, Other - Musculoskeletal Musculoskeletal: absent: As Per HPI, Abnormal Gait, Arthralgias, Atrophy, Back Pain, Deformity, Joint Swelling, Limited Range of Motion, Loss of Height, Muscle Cramps, Muscle Weakness, Myalgias, Neck Pain, Numbness, Radiating Pain into Limb, Stiffness, Tingling, Other - Integumentary Integumentary: absent: As Per HPI, Acne, Alopecia, Bleeding Lesions, Change in Hair, Change in Nails, Change in Pigmentation, Changing Lesions, Dry Skin, Erythema, Furuncle, Hirsutism, Lesions, New Lesions, Non-Healing Lesions, Photosensitivity, Pruritus, Rash, Skin Pain, Skin Ulcer, Sores, Striae, Swelling , Unusual Bruising, Wounds, Jaundice, Other - Neurological Neurological: absent: As Per HPI, Abnormal Gait, Abnormal Hearing, Abnormal Movements, Abnormal Speech, Behavioral Changes, Burning Sensations, Confusion, Convulsions, Disequilibrium, Dizziness, Numbness, Focal Weakness, Frequent Falls , Headaches, Lack of Coordination, Loss of Vision, Memory Loss, Paresthesias, Radicular Pain, Restless Legs, Sensory Deficit, Syncope, Tingling, Tremor, Vertigo, Weakness, Other Visual Disturbances, Other - Psychiatric Psychiatric: absent: As Per HPI, Abnormal Sleep Pattern, Anhedonia, Anxiety, Auditory Hallucinations, Behavioral Changes, Change in Appetite, Change in Libido, Confusion, Depression, Difficulty Concentrating, Hallucinations, Homicidal Ideation, Hopelessness, Irritability, Memory Loss, Mood Swings, Panic Attacks, Paranoia, Suicidal Ideation, Visual Hallucinations, Tactile Hallucinations, Other - Endocrine Endocrine: absent: As Per HPI, Change in Body Appearance, Change in Libido, Cold Intolorance, Deepening of Voice, Excessive Sweating, Fatigue, Flushing, Heat Intolorance, Increase in Ring/Shoe/Hat Size, Palpitations, Polydipsia, Polyphagia, Polyuria, Other - Hematologic/Lymphatic Hematologic: absent: As Per HPI, Easy Bleeding, Easy Bruising, Lymphadenopathy, Other Past Patient History - Infectious Disease Hx of Infectious Diseases: None - Past Medical History & Family History Past Medical History?: Yes - Past Social History Smoking Status: Never Smoked - CARDIAC Hx Congestive Heart Failure: Yes Hx Hypercholesterolemia: Yes Hx Hypertension: Yes - PULMONARY Hx Pneumonia: Yes Hx Pulmonary Embolism: Yes - NEUROLOGICAL Hx Neurological Disorder: No - HEENT Hx HEENT Problems: No - RENAL Hx Chronic Kidney Disease: No - ENDOCRINE/METABOLIC Hx Hyperthyroidism: Yes Hx Hypothyroidism: Yes - HEMATOLOGICAL/ONCOLOGICAL Hx Anemia: Yes - INTEGUMENTARY Hx Dermatological Problems: No - MUSCULOSKELETAL/RHEUMATOLOGICAL Hx Musculoskeletal Disorders: Yes Hx Falls: Yes - GASTROINTESTINAL Hx Gastritis: Yes - GENITOURINARY/GYNECOLOGICAL Hx Genitourinary Disorders: No - PSYCHIATRIC Hx Substance Use: No - SURGICAL HISTORY Hx Surgeries: No - ANESTHESIA Hx Anesthesia: No Hx Anesthesia Reactions: No Hx Malignant Hyperthermia: No Meds Allergies/Adverse Reactions: Allergies Allergy/AdvReac Type Severity Reaction Status Date / Time No Known Allergies Allergy Verified 06/06/17 17:24 - Medications Medications: Current Medications Apixaban (Eliquis) 5 mg PO BID [facility] Last Admin: 06/08/17 09:38 Dose: 5 mg Aspirin (Aspirin Chewable) 81 mg PO DAILY [facility] Last Admin: 06/08/17 09:38 Dose: 81 mg Sodium Chloride (Sodium Chloride 0.9%) 1,000 mls @ 70 mls/hr IV .[id number] [facility] Last Admin: 06/08/17 06:00 Dose: 70 mls/hr Piperacillin Sod/Tazobactam (Sod 3.375 gm/ Sodium Chloride) 100 mls @ 100 mls/ hr IVPB Q8H [facility] Last Admin: 06/08/17 15:24 Dose: 100 mls/hr Metoprolol Succinate (Toprol Xl) 25 mg PO BID [facility] Last Admin: 06/08/17 09:39 Dose: 25 mg Pneumococcal Polyvalent Vaccine (Pneumovax 23 Vaccine) 0.5 ml IM .ONCE ONE Stop: 06/09/17 12:01 Ranolazine (Ranexa) 500 mg PO BID [facility] Last Admin: 06/08/17 09:39 Dose: 500 mg Vancomycin HCl (Vancocin (Oral Or Rectal Use)) 250 mg PO QID [facility] Last Admin: 06/08/17 15:21 Dose: Not Given Physical Exam - Constitutional Appears: Non-toxic, Cachectic, Chronically Ill - Head Exam Head Exam: ATRAUMATIC, NORMAL INSPECTION, NORMOCEPHALIC - Eye Exam Eye Exam: EOMI, PERRL. absent: Scleral icterus - ENT Exam ENT Exam: Mucous Membranes Dry, Normal External Ear Exam, Normal Oropharynx - Neck Exam Neck exam: Negative for: Lymphadenopathy - Respiratory Exam Respiratory Exam: Decreased Breath Sounds, Rales, Rhonchi - Cardiovascular Exam Cardiovascular Exam: Tachycardia, REGULAR RHYTHM, +S1, +S2 - GI/Abdominal Exam GI & Abdominal Exam: Diminished Bowel Sounds, Distended, Soft. absent: Rebound , Rigid, Tenderness - Rectal Exam Rectal Exam: Deferred - Exam Exam: NORMAL INSPECTION - Extremities Exam Extremities exam: Positive for: normal capillary refill, pedal pulses present. Negative for: calf tenderness, pedal edema, tenderness - Back Exam Back exam: absent: CVA tenderness (L), CVA tenderness (R), paraspinal tenderness - Neurological Exam Neurological exam: Alert, CN II-XII Intact, Oriented x3, Reflexes Normal - Psychiatric Exam Psychiatric exam: Normal Mood - Skin Skin Exam: Petechiae Results - Vital Signs Recent Vital Signs: Last Vital Signs Temp 99.9 F H 06/08/17 04:44 Pulse 94 H 06/08/17 07:45 Resp 20 06/08/17 04:44 BP 114/53 L 06/08/17 04:44 Pulse Ox 99 06/08/17 04:44 - Labs Result Diagrams: 06/06/17 18:54 06/08/17 07:45 Labs: Laboratory Results - last 24 hr 06/08/17 06/08/17 06/08/17 07:45 07:45 07:45 Sodium 124 L Potassium 3.3 L Chloride 91 L Carbon Dioxide 26 Anion Gap 10 BUN 11 Creatinine 0.6 L Est GFR ( Amer) > 60 Est GFR (Non-Af Amer) > 60 Random Glucose 95 Serum Osmolality 263 L Calcium 7.8 L NT-Pro-B Natriuret Pep 72428 H TSH 3rd Generation 1.70 Cortisol AM Sample 15.5 Urine Osmolality Ur Random Sodium Ur Random Potassium 06/08/17 06/08/17 08:50 08:50 Sodium Potassium Chloride Carbon Dioxide Anion Gap BUN Creatinine Est GFR ( Amer) Est GFR (Non-Af Amer) Random Glucose Serum Osmolality Calcium NT-Pro-B Natriuret Pep TSH 3rd Generation Cortisol AM Sample Urine Osmolality 667 Ur Random Sodium 66 Ur Random Potassium 48.8 Assessment & Plan (1) CAD (coronary artery disease) Status: Acute (2) SOB (shortness of breath) Status: Acute (3) Abnormal CT of liver Status: Acute (4) Adrenalitis Status: Acute (5) Anemia Status: Acute (6) C. difficile colitis Status: Acute (7) Cough Status: Acute (8) Hyponatremia Status: Acute (9) Myelodysplasia (myelodysplastic syndrome) Status: Acute (10) Pneumonia Status: Acute - Assessment and Plan (Free Text) Assessment: await cultures cont PO and IV Vanco check levels follow up CXR poor prognosis
[2017-06-08] MEDS: Albuterol-Ipratrop 3 mg / 0.5 (3 ml) UD INH SCH (19:20)
[2017-06-09] MEDS: Albuterol-Ipratrop 3 mg / 0.5 (3 ml) UD INH SCH ×6 (02:01→20:09)
--- NOTE | 2017-06-09 03:52 | PN ---
DATE:06/08/2017 FOLLOWUP RENAL CONSULTATION LOCATION: Patient is located in Room 658, bed B. REQUESTING PHYSICIAN: Víctor Marie MD. REASON FOR CONSULTATION: Hyponatremia, for further evaluation. HISTORY OF PRESENT ILLNESS: Mrs. Espino is a 76-year-old elderly [place]iqu[place] female with a past medical history significant for hypertension, myelodysplastic syndrome, anemia, multiple transfusions, pulmonary embolism, status post C. Diff colitis, was admitted after she had COMPUTER SYSTEMS SOFTWARE ARCHITECT after transfusion of packed RBC with fever, chills and shortness of breath. Subsequently, patient was admitted to the hospital for further management. Patient was found to have hyponatremia and renal consult was requested for evaluation. The patient is not in acute distress and denies any chest pain or palpitation. Denies any fever or cough. No abdominal pain. No nausea, vomiting, diarrhea. Complains of feeling weak and tired. PHYSICAL EXAMINATION: VITAL SIGNS: Blood pressure 113/64, pulse 100, respirations 20, temperature 98, saturation 98%. Height 5 feet 2 inches and weight is 117 pounds. BMI 21.4. GENERAL: Mrs. Espino is a 76-year-old elderly [place] female, moderately built, moderately nourished, not in acute distress. HEENT: Pupils normal, reactive to light and accommodation. Conjunctivae pink. Sclerae anicteric. Tongue is moist. Trachea is midline. LUNGS: Symmetric on both sides. Bilateral breath sounds present. Bilateral basal crackles present. CARDIOVASCULAR SYSTEM: [place] at the fifth intercostal space in midclavicular line. S1 and S2 audible. No murmur or gallop. ABDOMEN: Normal in appearance. Soft, tympanic. No guarding. No rigidity. No hepatosplenomegaly. CENTRAL NERVOUS SYSTEM: The patient is alert, awake, and oriented x3. Nonfocal neuro examination. Cranial nerves II through XII grossly intact. Sensory and motor system is grossly within normal limits. EXTREMITIES: No cyanosis, no clubbing, no edema. CURRENT MEDICATIONS: Include as follows, aspirin 81 mg daily, DuoNeb inhaler q. 4 hours, Eliquis 5 mg p.o. b.i.d., Zosyn 3.375 g q. 8 hours, pneumococcal vaccine 0.5 mL x1, Ranexa 500 mg p.o. b.i.d., IV fluids normal saline at 70 mL/hour, metoprolol 25 mg p.o. b.i.d. and vancomycin 250 mg p.o. q.i.d. LABORATORY DATA: Include as follows, as of 06/08/2017, sodium is 124, potassium 3.3, chloride 91, CO2 of 26, BUN 11, creatinine 0.6, glucose 263, calcium 7.8, proBNP 11,900, and TSH is 1.7. Serum cortisol level is 15.5. As of 06/07/2017, urine osmolality is 698 and urine sodium is 9. On IV fluids today. Repeat urine osmolality 667, urine sodium is 66 and urine potassium is 48.8, on IV fluids. Chest x-ray as of 06/06/2017, impression: Small bilateral pleural effusions, more consolidative changes in the left hilar region and right hilar region, right infrahilar region, right parenchymal space opacity, tortuous ectatic aorta, mild cardiomegaly. ASSESSMENT: In summary, Mrs. Espino is a 76-year-old elderly [place] female with a history of hypertension, pulmonary embolism, myelodysplastic syndrome, anemia, multiple transfusions, was admitted to [facility] for transfusion. After transfusion of 2 units of packed RBC, patient developed fever, chills and shortness of breath, COMPUTER SYSTEMS SOFTWARE ARCHITECT and admitted to the hospital with low serum sodium, low urine sodium, and high urine osmolality. 1. Hyponatremia, picture consistent with a prerenal azotemia, doubt syndrome of inappropriate antidiuretic hormone at this time. Plan: Continue IV fluids normal saline at 70 mL/hour and repeat BMP in a.m. 2. Pulmonary embolism, continue Eliquis. 3. Pneumonia. Continue antibiotics, Zosyn as per ID recommendation and also p.o. vancomycin. We will follow with you. Thank you for allowing me to participate in your patient's care. Rehan Dos Santos MD [facility]
[2017-06-09] MEDS: Piperacillin/Tazobact 3.375 GM in Sodium Chloride 0.9% 100 ML IVPB SCH ×3 (05:57→22:49)
--- NOTE | 2017-06-09 08:25 | PN ---
DATE: 06/07/2017 FOLLOWUP RENAL CONSULTATION LOCATION: Room 658, bed B. REQUESTED BY: Víctor Marie MD REASON FOR EVALUATION: Hyponatremia, for further followup. SUBJECTIVE: Mrs. Espino is a 76-year-old elderly [place] female with a past medical history significant for myelodysplastic syndrome, PE - on Coumadin, anemia, status post C. diff colitis, hypertension, and hyponatremia, who was recently discharged from the [facility] on 05/26/2017, was admitted through the emergency room on 06/06/2017 with chief complaint of shortness of breath. The patient had RESEARCH EPIDEMIOLOGIST from the infusion center. The patient received 2 units of packed RBCs. She had again fever and had chills and became short of breath with mild cough after transfusion. The patient was given Lasix and Solu-Medrol, and then admitted through the emergency room. Renal consult was requested for evaluation of hyponatremia. The patient is resting comfortably. Denies any chest pain or palpitation. Denies any nausea, vomiting, or diarrhea. Denies any abdominal pain. No urinary symptoms. No swelling of the legs. PAST MEDICAL HISTORY: Significant for myelodysplastic syndrome, PE - on Coumadin, anemia, hyponatremia, status post C. diff colitis, hypertension, and hyperthyroidism. PAST SURGICAL HISTORY: Denies any surgeries. ALLERGIES: NO KNOWN DRUG ALLERGIES. SOCIAL HISTORY: No smoking. No alcohol. No drugs. FAMILY HISTORY: Not significant. She has one child in [place]. REVIEW OF SYSTEMS: Significant for chills and fever, shortness of breath, cough after transfusion in the infusion center. All other review of systems are reviewed and negative. PHYSICAL EXAMINATION: VITAL SIGNS: As of 06/07/2017, blood pressure 97/63, pulse 97, respirations 20, temperature 97.1, saturation 98%. Height 5 feet 2 inches, and weight is 115 pounds, and BMI 21. GENERAL: Mrs. Espino is a 76-year-old elderly [place] female, very pleasant, moderate-built, moderate-nourished, not in acute distress. HEENT: Pupils normal, reactive to light and accommodation. Conjunctivae pink. Sclerae anicteric. Tongue is moist. NECK: Trachea is midline. LUNGS: Symmetric on both sides. Bilateral breath sounds present. Clear on auscultation. CVS: [place] at the fifth intercostal space of intermediate midclavicular line. S1 and S2 audible. No murmur or gallop. ABDOMEN: Normal in appearance. Soft, tympanic. No guarding. No rigidity. No hepatosplenomegaly. No abdominal bruit. ADMINISTRATIVE SERVICES DIRECTOR: The patient is alert, awake, oriented x3. Nonfocal neuro examination. Cranial nerves II through XII grossly intact. Sensory and motor system is within normal limits. EXTREMITIES: No cyanosis, no clubbing, no edema. LABORATORY DATA: Include as follows: As of 06/06/2017; WBC 9.8, hemoglobin 9.9, hematocrit is 28.6, platelets 441, neutrophils 78, bands 5, lymphs 11, monos 1, eosinophils 4. PT 16.7 and PTT 36. VBG; pH 7.49, pO2 73, pCO2 of 31, bicarb 25.7, saturation 97.7. Lactic acid is 2.0. Sodium 121, potassium 3.6, chloride 89, CO2 24, BUN 8, creatinine 0.5, glucose is 150, calcium 8.0. Total bili 2.4, AST 24, ALT 23, alkaline phosphatase 137. Troponin level is 0.249, 0.274 and 0.20. ProBNP 3080. Total protein 7.3, albumin is 3.0. Other laboratory data; urine is yellow clear, pH 5, specific gravity 1.006, protein negative, glucose negative, ketone negative, blood negative, nitrite negative, bilirubin negative, urobilinogen negative, leukocyte esterase negative, wbc 1, rbc less than 1. TSH is 1.76 and T4 is 7.0. Influenza A and B antibodies negative. Urine osmolality is 698, and urine sodium is 9. Other reports; chest x-ray as of 06/06/2017; impression; moderate venous congestion, moderate by basilar airspace opacities. ASSESSMENT: In summary, Mrs. Espino is a 76-year-old elderly [place] female with a history of hypertension, myelodysplastic syndrome, anemia, status post transfusion in infusion center on admission on 06/06/2017. Subsequently the patient developed chills, fever, cough and shortness of breath, and RESEARCH EPIDEMIOLOGIST, and admitted through the emergency room with low serum sodium with low urine sodium and high urine osmolality. 1. Hyponatremia. Picture consistent with hypotonic hypovolemic hyponatremia, doubt syndrome of inappropriate antidiuretic hormone at this time. 2. Anemia secondary to myelodysplastic syndrome. 3. Pulmonary embolus, on anticoagulation. PLAN: We will start IV fluids normal saline at 70 mL/hour and will check BMP in a.m., and also check serum cortisol level and uric acid level. We will follow with you. Thank you for allowing me to participate in your patient's care. Rehan Dos Santos MD
[2017-06-09 09:12] LABS: BLOOD UREA NITROGEN 8 mg/dL (7-17); CALCIUM 7.8 mg/dl (8.6-10.4); GFR AFRICAN-AMERICAN > 60; GFR NON-AFRICAN AMERICAN > 60
--- NOTE | 2017-06-09 09:29 | CP.PCM.PN ---
Subjective - Date & Time of Evaluation Date of Evaluation: 06/09/17 Time of Evaluation: 08:20 - Subjective Subjective: Pt cough w/ white/ yellow mucus. No CP, no SOB, no diarrhea, no n/v Objective - Vital Signs/Intake and Output Vital Signs (last 24 hours): Temp Pulse Resp BP Pulse Ox 98.1 F 91 H 20 99/55 L 97 06/09/17 07:00 06/09/17 07:00 06/09/17 07:00 06/09/17 07:00 06/09/17 08:23 Intake and Output: 06/09/17 06/09/17 06:59 18:59 Intake Total 590 20 Balance 590 20 - Medications Medications: Current Medications Albuterol/Ipratropium (Duoneb 3 Mg/0.5 Mg (3 Ml) Ud) 3 ml INH RQ4 [facility] Last Admin: 06/09/17 05:01 Dose: Not Given Aspirin (Aspirin Chewable) 81 mg PO DAILY [facility] Last Admin: 06/08/17 09:38 Dose: 81 mg Heparin Sodium (Porcine) (Heparin) 5,000 units SC Q8 [facility] Sodium Chloride (Sodium Chloride 0.9%) 1,000 mls @ 70 mls/hr IV .[id number] [facility] Last Admin: 06/08/17 22:00 Dose: 70 mls/hr Piperacillin Sod/Tazobactam (Sod 3.375 gm/ Sodium Chloride) 100 mls @ 100 mls/ hr IVPB Q8H [facility] Last Admin: 06/09/17 05:57 Dose: 100 mls/hr Metoprolol Succinate (Toprol Xl) 25 mg PO BID [facility] Last Admin: 06/08/17 17:40 Dose: 25 mg Pneumococcal Polyvalent Vaccine (Pneumovax 23 Vaccine) 0.5 ml IM .ONCE ONE Stop: 06/09/17 12:01 Ranolazine (Ranexa) 500 mg PO BID [facility] Last Admin: 06/08/17 18:00 Dose: 500 mg Vancomycin HCl (Vancocin (Oral Or Rectal Use)) 250 mg PO QID [facility] Last Admin: 06/08/17 22:06 Dose: 250 mg - Labs Labs: 06/06/17 18:54 06/09/17 07:35 PT 16.7 SECONDS (9.7-12.2) H 06/06/17 18:54 INR 1.5 06/06/17 18:54 APTT 36 SECONDS (21-34) H 06/06/17 18:54 - Constitutional Appears: No Acute Distress - Eye Exam Eye Exam: Normal appearance - ENT Exam ENT Exam: Mucous Membranes Moist - Neck Exam Neck Exam: Full ROM. absent: Lymphadenopathy, Normal Inspection - Respiratory Exam Respiratory Exam: Decreased Breath Sounds, Rhonchi. absent: Rales, Wheezes - Cardiovascular Exam Cardiovascular Exam: +S1, +S2. absent: Gallop, REGULAR RHYTHM - GI/Abdominal Exam GI & Abdominal Exam: Soft. absent: Tenderness, Normal Bowel Sounds - Extremities Exam Extremities Exam: Full ROM. absent: Calf Tenderness, Joint Swelling, Normal Capillary Refill, Pedal Edema Assessment and Plan - Assessment and Plan (Free Text) Assessment: Pneumonia; NSTEMI, HTN MDS; Recent PE (04/2017) cont meds For Cath
[2017-06-09] MEDS: Metoprolol Succinate 25 mg XL Tab PO SCH ×3 (10:18→18:11)
[2017-06-09] MEDS: Vancomycin 125 MG/5 ML SOLN (ORAL/RECTAL) PO SCH ×4 (10:20→22:49)
[2017-06-09] MEDS: Ranolazine 500 mg Extended Release Tablets PO SCH ×2 (10:21→18:11)
[2017-06-09] MEDS: Sodium Chloride 0.9% 1,000 ML IV SCH (11:00)
[2017-06-09] MEDS ORDERED: Influenza Vaccine 60 mcg/0.5 mL SYR (4YR UP) IM ONE (12:00)
[2017-06-09] MEDS ORDERED: Pneumococcal 23-Valent Vaccine IM ONE (12:00)
[2017-06-09] MEDS ORDERED: Sodium Chloride 0.9% 1,000 ML IV SCH (12:27)
[2017-06-09] MEDS ORDERED: Tolvaptan 15 MG TAB PO ONE (12:27)
--- NOTE | 2017-06-09 12:28 | CP.PCM.PN ---
Subjective - Date & Time of Evaluation Date of Evaluation: 06/09/17 Time of Evaluation: 12:26 - Subjective Subjective: pt is seen and examined, follow up consult is dictated #[id number] tolvaptan 15 mg po x1, decrease ivf to 50 ml/hr ns Objective - Vital Signs/Intake and Output Vital Signs (last 24 hours): Temp Pulse Resp BP Pulse Ox 98.1 F 91 H 20 99/55 L 97 06/09/17 07:00 06/09/17 07:00 06/09/17 07:00 06/09/17 07:00 06/09/17 08:23 Intake and Output: 06/09/17 06/09/17 06:59 18:59 Intake Total 590 20 Balance 590 20 - Medications Medications: Current Medications Albuterol/Ipratropium (Duoneb 3 Mg/0.5 Mg (3 Ml) Ud) 3 ml INH RQ4 [facility] Last Admin: 06/09/17 11:23 Dose: Not Given Aspirin (Aspirin Chewable) 81 mg PO DAILY [facility] Last Admin: 06/09/17 10:18 Dose: 81 mg Heparin Sodium (Porcine) (Heparin) 5,000 units SC Q8H [facility] Sodium Chloride (Sodium Chloride 0.9%) 1,000 mls @ 70 mls/hr IV .[id number] [facility] Last Admin: 06/09/17 11:00 Dose: Not Given Piperacillin Sod/Tazobactam (Sod 3.375 gm/ Sodium Chloride) 100 mls @ 100 mls/ hr IVPB Q8H [facility] Last Admin: 06/09/17 05:57 Dose: 100 mls/hr Metoprolol Succinate (Toprol Xl) 25 mg PO BID [facility] Last Admin: 06/09/17 10:27 Dose: Not Given Ranolazine (Ranexa) 500 mg PO BID [facility] Last Admin: 06/09/17 10:21 Dose: 500 mg Vancomycin HCl (Vancocin (Oral Or Rectal Use)) 250 mg PO QID [facility] Last Admin: 06/09/17 10:20 Dose: 250 mg - Labs Labs: 06/06/17 18:54 06/09/17 07:35 PT 16.7 SECONDS (9.7-12.2) H 06/06/17 18:54 INR 1.5 06/06/17 18:54 APTT 36 SECONDS (21-34) H 06/06/17 18:54
--- NOTE | 2017-06-09 13:03 | CP.PCM.PN ---
Subjective - Date & Time of Evaluation Date of Evaluation: 06/09/17 Time of Evaluation: 10:00 - Subjective Subjective: less sob no fever iv rx reordered Objective - Vital Signs/Intake and Output Vital Signs (last 24 hours): Temp Pulse Resp BP Pulse Ox 98.1 F 91 H 20 99/55 L 97 06/09/17 07:00 06/09/17 07:00 06/09/17 07:00 06/09/17 07:00 06/09/17 08:23 Intake and Output: 06/09/17 06/09/17 06:59 18:59 Intake Total 590 20 Balance 590 20 - Medications Medications: Current Medications Albuterol/Ipratropium (Duoneb 3 Mg/0.5 Mg (3 Ml) Ud) 3 ml INH RQ4 [facility] Last Admin: 06/09/17 11:23 Dose: Not Given Aspirin (Aspirin Chewable) 81 mg PO DAILY [facility] Last Admin: 06/09/17 10:18 Dose: 81 mg Heparin Sodium (Porcine) (Heparin) 5,000 units SC Q8H [facility] Piperacillin Sod/Tazobactam (Sod 3.375 gm/ Sodium Chloride) 100 mls @ 100 mls/ hr IVPB Q8H [facility] Last Admin: 06/09/17 05:57 Dose: 100 mls/hr Sodium Chloride (Sodium Chloride 0.9%) 1,000 mls @ 50 mls/hr IV .Q20H [facility] Metoprolol Succinate (Toprol Xl) 25 mg PO BID [facility] Last Admin: 06/09/17 10:27 Dose: Not Given Ranolazine (Ranexa) 500 mg PO BID [facility] Last Admin: 06/09/17 10:21 Dose: 500 mg Vancomycin HCl (Vancocin (Oral Or Rectal Use)) 250 mg PO QID [facility] Last Admin: 06/09/17 10:20 Dose: 250 mg - Labs Labs: 06/06/17 18:54 06/09/17 07:35 PT 16.7 SECONDS (9.7-12.2) H 06/06/17 18:54 INR 1.5 06/06/17 18:54 APTT 36 SECONDS (21-34) H 06/06/17 18:54 - Constitutional Appears: Non-toxic, Cachectic, Chronically Ill - Head Exam Head Exam: NORMOCEPHALIC - Eye Exam Eye Exam: PERRL. absent: Scleral icterus - ENT Exam ENT Exam: Mucous Membranes Dry - Neck Exam Neck Exam: absent: Lymphadenopathy - Respiratory Exam Respiratory Exam: Decreased Breath Sounds - Cardiovascular Exam Cardiovascular Exam: REGULAR RHYTHM - GI/Abdominal Exam GI & Abdominal Exam: Distended, Soft - Rectal Exam Rectal Exam: Deferred Assessment and Plan (1) CAD (coronary artery disease) Status: Acute (2) SOB (shortness of breath) Status: Acute (3) Abnormal CT of liver Status: Acute (4) Adrenalitis Status: Acute (5) Anemia Status: Acute (6) C. difficile colitis Status: Acute (7) Cough Status: Acute (8) Hyponatremia Status: Acute (9) Myelodysplasia (myelodysplastic syndrome) Status: Acute (10) Pneumonia Status: Acute - Assessment and Plan (Free Text) Assessment: cultures neg thus far consider d/c iv antibiotics
--- NOTE | 2017-06-09 18:38 | CP.PCM.CON ---
History of Present Illness - History of Present Illness History of Present Illness: 76 yo woman diagnosed with myelodysplastic syndrome when she presented with severe anemia in 2016, found to have abnormal bone marrow biopsy and cytogenetics, unable to tolerate Revlimid, currently only on subQ Epogen. Her course of anemia has been complicated by Pulmonary embolism diagnosed 02/25 on Eliquis, hospitalizations for cellulitis, pneumonia, anemia requiring frequent transfusions. She was receiving a scheduled transfusion on 06/06, when she developed wheezing, SOB, no improvement with Lasix, Solumedrol, oxygen and a rapid response was called. She had a low grade temp prior to the transfusion, for which she was given Tylenol. In the ER she was found to have some wheezing on exam and a CXRay that showed congestion Past Patient History - Infectious Disease Hx of Infectious Diseases: None - Past Medical History & Family History Past Medical History?: Yes - Past Social History Smoking Status: Never Smoked - CARDIAC Hx Hypercholesterolemia: Yes - PULMONARY Hx Pneumonia: Yes Hx Pulmonary Embolism: Yes - NEUROLOGICAL Hx Neurological Disorder: No - HEENT Hx HEENT Problems: No - RENAL Hx Chronic Kidney Disease: No - ENDOCRINE/METABOLIC Hx Hypothyroidism: Yes - HEMATOLOGICAL/ONCOLOGICAL Hx Anemia: Yes - INTEGUMENTARY Hx Dermatological Problems: No - MUSCULOSKELETAL/RHEUMATOLOGICAL Hx Musculoskeletal Disorders: Yes Hx Falls: Yes - GASTROINTESTINAL Hx Gastritis: Yes - GENITOURINARY/GYNECOLOGICAL Hx Genitourinary Disorders: No - PSYCHIATRIC Hx Substance Use: No - SURGICAL HISTORY Hx Surgeries: No - ANESTHESIA Hx Anesthesia: No Hx Anesthesia Reactions: No Hx Malignant Hyperthermia: No Meds Allergies/Adverse Reactions: Allergies Allergy/AdvReac Type Severity Reaction Status Date / Time No Known Allergies Allergy Verified 06/06/17 17:24 - Medications Medications: Current Medications Albuterol/Ipratropium (Duoneb 3 Mg/0.5 Mg (3 Ml) Ud) 3 ml INH RQ4 [facility] Last Admin: 06/09/17 16:24 Dose: 3 ml Aspirin (Aspirin Chewable) 81 mg PO DAILY [facility] Last Admin: 06/09/17 10:18 Dose: 81 mg Heparin Sodium (Porcine) (Heparin) 5,000 units SC Q8H [facility] Last Admin: 06/09/17 18:11 Dose: 5,000 units Piperacillin Sod/Tazobactam (Sod 3.375 gm/ Sodium Chloride) 100 mls @ 100 mls/ hr IVPB Q8H [facility] Last Admin: 06/09/17 14:29 Dose: 100 mls/hr Sodium Chloride (Sodium Chloride 0.9%) 1,000 mls @ 50 mls/hr IV .Q20H [facility] Last Admin: 06/09/17 14:04 Dose: Not Given Metoprolol Succinate (Toprol Xl) 25 mg PO BID [facility] Last Admin: 06/09/17 18:11 Dose: 25 mg Ranolazine (Ranexa) 500 mg PO BID [facility] Last Admin: 06/09/17 18:11 Dose: 500 mg Vancomycin HCl (Vancocin (Oral Or Rectal Use)) 250 mg PO QID [facility] Last Admin: 06/09/17 18:11 Dose: 250 mg Results - Vital Signs Recent Vital Signs: Last Vital Signs Temp 98.5 F 06/09/17 15:00 Pulse 99 H 06/09/17 18:12 Resp 18 06/09/17 15:00 BP 118/70 06/09/17 18:12 Pulse Ox 100 06/09/17 15:00 - Labs Result Diagrams: 06/06/17 18:54 06/09/17 07:35 Labs: Laboratory Results - last 24 hr 06/09/17 06/09/17 07:35 07:35 Sodium 122 L Potassium 3.7 Chloride 92 L Carbon Dioxide 26 Anion Gap 8 L BUN 8 Creatinine 0.6 L Est GFR ( Amer) > 60 Est GFR (Non-Af Amer) > 60 Random Glucose 108 H Calcium 7.8 L Procalcitonin 0.17 L
--- NOTE | 2017-06-09 22:24 | CP.PCM.PN ---
Subjective - Date & Time of Evaluation Date of Evaluation: 06/08/17 Time of Evaluation: 10:15 - Subjective Subjective: Chronic hyponatremia spoke w/ daughter re: cardiac cath Risk and benefit explain to patient and she agreed Objective - Vital Signs/Intake and Output Vital Signs (last 24 hours): Temp Pulse Resp BP Pulse Ox 98.5 F 99 H 18 118/70 100 06/09/17 15:00 06/09/17 18:12 06/09/17 15:00 06/09/17 18:12 06/09/17 15:00 Intake and Output: 06/09/17 06/10/17 18:59 06:59 Intake Total 720 Balance 720 - Medications Medications: Current Medications Albuterol/Ipratropium (Duoneb 3 Mg/0.5 Mg (3 Ml) Ud) 3 ml INH RQ4 [facility] Last Admin: 06/09/17 20:09 Dose: 3 ml Aspirin (Aspirin Chewable) 81 mg PO DAILY [facility] Last Admin: 06/09/17 10:18 Dose: 81 mg Heparin Sodium (Porcine) (Heparin) 5,000 units SC Q8H [facility] Last Admin: 06/09/17 18:11 Dose: 5,000 units Piperacillin Sod/Tazobactam (Sod 3.375 gm/ Sodium Chloride) 100 mls @ 100 mls/ hr IVPB Q8H [facility] Last Admin: 06/09/17 14:29 Dose: 100 mls/hr Sodium Chloride (Sodium Chloride 0.9%) 1,000 mls @ 50 mls/hr IV .Q20H [facility] Last Admin: 06/09/17 14:04 Dose: Not Given Metoprolol Succinate (Toprol Xl) 25 mg PO BID [facility] Last Admin: 06/09/17 18:11 Dose: 25 mg Ranolazine (Ranexa) 500 mg PO BID [facility] Last Admin: 06/09/17 18:11 Dose: 500 mg Vancomycin HCl (Vancocin (Oral Or Rectal Use)) 250 mg PO QID [facility] Last Admin: 06/09/17 18:11 Dose: 250 mg - Labs Labs: 06/06/17 18:54 06/09/17 07:35 PT 16.7 SECONDS (9.7-12.2) H 06/06/17 18:54 INR 1.5 06/06/17 18:54 APTT 36 SECONDS (21-34) H 06/06/17 18:54 - Constitutional Appears: Non-toxic - Head Exam Head Exam: NORMAL INSPECTION - Eye Exam Eye Exam: absent: Scleral icterus - ENT Exam ENT Exam: Mucous Membranes Moist - Neck Exam Neck Exam: Full ROM - Respiratory Exam Respiratory Exam: Decreased Breath Sounds - Cardiovascular Exam Cardiovascular Exam: REGULAR RHYTHM - GI/Abdominal Exam GI & Abdominal Exam: Soft - Extremities Exam Extremities Exam: absent: Calf Tenderness, Pedal Edema - Neurological Exam Neurological Exam: Alert, Oriented x3 Assessment and Plan - Assessment and Plan (Free Text) Assessment: NSTEMI Chronic hyponatremia - SIADH MDS Plan: Will benefit from cath Cont meds
--- NOTE | 2017-06-09 22:53 | CARD ---
APPROVED REPORT EKG Measurement Heart [id number] <Conclusion> Atrial fibrillation Low voltage QRS Septal infarct, age undetermined Abnormal ECG
--- NOTE | 2017-06-09 22:57 | CARD ---
APPROVED REPORT EKG Measurement Heart [id number] <Conclusion> Atrial fibrillation Low voltage QRS Inferior infarct, age undetermined Cannot rule out Anterior infarct, age undetermined Prolonged QT Abnormal ECG
[2017-06-10] MEDS: Albuterol-Ipratrop 3 mg / 0.5 (3 ml) UD INH SCH ×3 (00:19→07:36)
[2017-06-10 00:39] LABS: BLOOD UREA NITROGEN 8 mg/dL (7-17); GFR AFRICAN-AMERICAN > 60; GFR NON-AFRICAN AMERICAN > 60
[2017-06-10 00:44] VITALS: RESP 20
--- NOTE | 2017-06-10 05:30 | PN ---
DATE: FOLLOWUP RENAL CONSULTATION LOCATION: Patient is located in room 658, bed B. REQUESTING PHYSICIAN: Víctor Marie MD. REASON FOR FOLLOWUP: Hyponatremia. HISTORY OF PRESENT ILLNESS: Mrs. Espino is a 76-year-old very pleasant elderly [place] female with a past medical history significant for myelodysplastic syndrome, hypertension, pulmonary embolism, status post C. diff colitis, hyponatremia, was recently discharged from the [facility] after treating her hyponatremia. Now, patient was admitted with fever, chills, and shortness of breath after transfusion of 2 units of packed RBC in [facility], status post [employer] and admitted for further evaluation. The patient was found to have hyponatremia and renal consultation was requested for evaluation. The patient is not in acute distress. The patient denies any chest pain, palpitation. Denies any fever or cough. No abdominal pain. No nausea, vomiting, diarrhea. PHYSICAL EXAMINATION: VITAL SIGNS: As follows, this morning, blood pressure 99/55, pulse 91, respiration 20, temperature 98.1, saturation 100%. Height 5 feet 2 inches and weight is 117 pounds. BMI 21.4. GENERAL: Mrs. Espino is a 76-year-old elderly female, moderately built, moderately nourished, not in acute distress. HEENT: Pupils normal and reactive to light and accommodation. Conjunctivae pink. Sclerae anicteric. Tongue is moist. Trachea is midline. LUNGS: Symmetric on both sides. Bilateral breath sounds present. Bilateral basal crackles present. CARDIOVASCULAR: [place] at the fifth intercostal space, midclavicular area. S1, S2 audible. Occasional ectopic present. ABDOMEN: Normal in appearance, soft, tympanic. No guarding. No hepatosplenomegaly. CENTRAL NERVOUS SYSTEM: The patient is alert, awake and oriented x2 to 3. Sensory and motor system is grossly within normal limits. EXTREMITIES: No cyanosis, no clubbing, no edema. MEDICATIONS: Include as follows, aspirin 81 mg daily DuoNeb inhaler, subcu heparin 5000 q. 8 hours, Zosyn 3.375 g IV q. 8 hours, Renexa 500 mg p.o. b.i.d., IV fluids normal saline at 50 mL/hour, metoprolol 25 mg p.o. b.i.d., vancomycin 250 mg p.o. q.i.d. LABORATORY DATA: Include as follows, as of 06/09/2017, sodium is 122, potassium 3.7, chloride 92, CO2 of 26, BUN 8, creatinine 0.6, glucose 108, calcium 7.8 and procalcitonin is 0.17. ASSESSMENT: In summary, Mrs. Espino is a 76-year-old elderly [place] female with a history of hypertension, pulmonary embolism, myelodysplastic syndrome, anemia, was admitted after [employer] after transfusion after receiving 2 units of packed RBC and followed by fever, chills and shortness of breath with low serum sodium. 1. Hyponatremia, most likely secondary to hypotonic hypovolemic hyponatremia, doubt syndrome of inappropriate antidiuretic hormone. The patient was not responding to IV fluids and serum sodium is decreasing from 124 to122. Plan: We will decrease IV fluids to 50 mL/hour and also we will give tolvaptan 15 mg p.o. x1 dose and repeat BMP in a.m. 2. Pulmonary embolism. 3. Myelodysplastic syndrome with anemia. Follow up with hematology for further recommendation and repeat BMP in a.m. Thank you for allowing me to participate in your patient's care. Rehan Dos Santos MD
[2017-06-10] MEDS: Piperacillin/Tazobact 3.375 GM in Sodium Chloride 0.9% 100 ML IVPB SCH (05:50)
[2017-06-10 07:38] LABS: BLOOD UREA NITROGEN 8 mg/dL (7-17); CALCIUM 8.2 mg/dl (8.6-10.4); GFR AFRICAN-AMERICAN > 60; GFR NON-AFRICAN AMERICAN > 60
[2017-06-10 07:56] VITALS: BP 101/62; TEMP 97.9; O2SAT 99
[2017-06-10 08:08] VITALS: PULSE 107
--- NOTE | 2017-06-11 15:54 | CARD ---
APPROVED REPORT EKG Measurement Heart [id number] <Conclusion> Sinus rhythm with premature atrial complexes Septal infarct, age undetermined Prolonged QT Abnormal ECG
--- NOTE | 2017-07-08 08:29 | CP.PCM.DIS ---
Provider - Provider Date of Admission: 06/06/17 19:47 77 y/o female with Myelodysplasia and recent PE. Patient recently discharge for C diff infection. Pt was receiving a transfusion and got short of breath. In ER was found in CHF and pneumonia. (+)also Troponin was (+) Attending physician: Víctor Marie MD Time Spent in preparation of Discharge (in minutes): 15 Hospital Course - Lab Results Lab Results: Micro Results 06/06/17 18:15 Blood Blood Culture - Final NO GROWTH AFTER 5 DAYS 06/06/17 18:15 Blood Gram Stain - Final TEST NOT PERFORMED 06/06/17 18:45 Blood Blood Culture - Final NO GROWTH AFTER 5 DAYS 06/06/17 18:45 Blood Gram Stain - Final TEST NOT PERFORMED 06/06/17 21:00 Urine,Clean Catch Urine Culture - Final No Growth (<1,000 CFU/ML) Most Recent Lab Values WBC 9.8 K/uL (4.8-10.8) 06/06/17 18:54 RBC 3.47 Mil/uL (3.80-5.20) L 06/06/17 18:54 Hgb 9.9 g/dL (11.0-16.0) L 06/06/17 18:54 Hct 28.6 % (34.0-47.0) L 06/06/17 18:54 MCV 82.2 fL (81.0-99.0) 06/06/17 18:54 MCH 28.5 pg (27.0-31.0) 06/06/17 18:54 MCHC 34.7 g/dL (33.0-37.0) 06/06/17 18:54 RDW 17.8 % (11.5-14.5) H 06/06/17 18:54 Plt Count 441 K/uL (130-400) H 06/06/17 18:54 MPV 9.3 fL (7.2-11.7) 06/06/17 18:54 Neut % (Auto) 91.9 % (50.0-75.0) H 06/06/17 18:54 Lymph % (Auto) 2.1 % (20.0-40.0) L 06/06/17 18:54 [place] % (Auto) 1.2 % (0.0-10.0) 06/06/17 18:54 Eos % (Auto) 4.4 % (0.0-4.0) H 06/06/17 18:54 Baso % (Auto) 0.4 % (0.0-2.0) 06/06/17 18:54 Neut # 9.0 K/uL (1.8-7.0) H 06/06/17 18:54 Lymph # 0.2 K/uL (1.0-4.3) L 06/06/17 18:54 [place] # 0.1 K/uL (0.0-0.8) 06/06/17 18:54 Eos # 0.4 K/uL (0.0-0.7) 06/06/17 18:54 Baso # 0.0 K/uL (0.0-0.2) 06/06/17 18:54 Neutrophils % (Manual) 78 % (50-75) H 06/06/17 18:54 Band Neutrophils % 5 % (0-2) H 06/06/17 18:54 Lymphocytes % (Manual) 11 % (20-40) L 06/06/17 18:54 Monocytes % (Manual) 1 % (0-10) 06/06/17 18:54 Eosinophils % (Manual) 4 % (0-4) 06/06/17 18:54 Basophils % (Manual) 1 % (0-2) 06/06/17 18:54 Platelet Estimate Slightly increased (NORMAL) H 06/06/17 18:54 Poikilocytosis (manual Slight 06/06/17 18:54 Anisocytosis (manual) Slight 06/06/17 18:54 PT 16.7 SECONDS (9.7-12.2) H 06/06/17 18:54 INR 1.5 06/06/17 18:54 APTT 36 SECONDS (21-34) H 06/06/17 18:54 pO2 73 mm/Hg (30-55) H 06/06/17 18:59 VBG pH 7.49 (7.32-7.43) H 06/06/17 18:59 VBG pCO2 31 mmHg (40-60) L 06/06/17 18:59 VBG HCO3 25.7 mmol/L 06/06/17 18:59 VBG Total CO2 24.6 mmol/L (22-28) 06/06/17 18:59 VBG O2 Sat (Calc) 97.7 % (40-65) H 06/06/17 18:59 VBG Base Excess 1.0 mmol/L (0.0-2.0) 06/06/17 18:59 VBG Potassium 3.5 mmol/L (3.6-5.2) L 06/06/17 18:59 Sodium 130.0 mmol/l (132-148) L 06/06/17 18:59 Chloride 95.0 mmol/L (98-107) L 06/06/17 18:59 Glucose 142 mg/dl (65-105) H 06/06/17 18:59 Lactate 2.0 mmol/L (0.7-2.1) 06/06/17 18:59 Sodium 135 mmol/L (132-148) 06/10/17 07:06 Potassium 3.7 mmol/L (3.6-5.2) 06/10/17 07:06 Chloride 101 mmol/L (98-107) 06/10/17 07:06 Carbon Dioxide 29 mmol/L (22-30) 06/10/17 07:06 Anion Gap 8 (10-20) L 06/10/17 07:06 BUN 8 mg/dL (7-17) 06/10/17 07:06 Creatinine 0.5 mg/dL (0.7-1.2) L 06/10/17 07:06 Est GFR ( Amer) > 60 06/10/17 07:06 Est GFR (Non-Af Amer) > 60 06/10/17 07:06 Random Glucose 108 mg/dL (65-105) H 06/10/17 07:06 Serum Osmolality 263 mosm/kg (272-300) L 06/08/17 07:45 Uric Acid 4.0 mg/dL (2.2-7.5) 06/07/17 13:57 Calcium 8.2 mg/dl (8.6-10.4) L 06/10/17 07:06 Total Bilirubin 2.4 mg/dL (0.2-1.3) H 06/06/17 18:54 AST 24 U/L (14-36) 06/06/17 18:54 ALT 23 U/L (9-52) 06/06/17 18:54 Alkaline Phosphatase 137 U/L (38-126) H D 06/06/17 18:54 Total Creatine Kinase < 20 U/L (30-135) L 06/07/17 10:08 CK-MB (Mass) 2.21 ng/mL (0.0-3.38) 06/07/17 10:08 Troponin I 0.2000 ng/mL (0.00-0.120) H* 06/07/17 10:08 NT-Pro-B Natriuret Pep 79977 pg/mL (0-900) H 06/08/17 07:45 Total Protein 7.3 g/dL (6.3-8.3) 06/06/17 18:54 Albumin 3.0 g/dL (3.5-5.0) L D 06/06/17 18:54 Globulin 4.3 gm/dL (2.2-3.9) H 06/06/17 18:54 Albumin/Globulin Ratio 0.7 (1.0-2.1) L 06/06/17 18:54 Procalcitonin 0.17 NG/ML (0.19-0.49) L 06/09/17 07:35 Thyroxine (T4) 7.04 ug/dL (5.5-11.0) 06/07/17 07:24 TSH 3rd Generation 1.70 mIU/L (0.46-4.68) 06/08/17 07:45 Cortisol AM Sample 15.5 ug/dL (4.46-22.7) 06/08/17 07:45 Venous Blood Potassium 3.5 mmol/L (3.6-5.2) L 06/06/17 18:59 Urine Color Yellow (YELLOW) 06/06/17 20:46 Urine Clarity Clear (Clear) 06/06/17 20:46 Urine pH 5.0 (5.0-8.0) 06/06/17 20:46 Ur Specific [place] 1.006 (1.003-1.030) 06/06/17 20:46 Urine Protein Negative mg/dL (NEGATIVE) 06/06/17 20:46 Urine Glucose (UA) Normal mg/dL (Normal) 06/06/17 20:46 Urine Ketones Negative mg/dL (NEGATIVE) 06/06/17 20:46 Urine Blood Negative (NEGATIVE) 06/06/17 20:46 Urine Nitrate Negative (NEGATIVE) 06/06/17 20:46 Urine Bilirubin Negative (NEGATIVE) 06/06/17 20:46 Urine Urobilinogen Normal mg/dL (0.2-1.0) 06/06/17 20:46 Ur Leukocyte Esterase Neg [place]/uL (Negative) 06/06/17 20:46 Urine WBC (Auto) 1 /hpf (0-5) 06/06/17 20:46 Urine RBC (Auto) < 1 /hpf (0-3) 06/06/17 20:46 Urine Osmolality 667 mosm/kg (300-1000) 06/08/17 08:50 Ur Random Sodium 66 mmol/L 06/08/17 08:50 Ur Random Potassium 48.8 mmol/L 06/08/17 08:50 Urine Chloride 109 mmol/L (32-290) 06/08/17 08:50 Influenza Typ A,B (EIA) Negative for flu a/b (NEGATIVE) 06/06/17 18:56 - Hospital Course Hospital Course: Pt admitted and place on Telemetry. Patient was referred to ID, renal and Cardio. Patient place on IV antibiotic and broncho-dilators. She improve and Cadiology sent out for cardiac cath. Discharge Exam - Head Exam Head Exam: NORMAL INSPECTION - Eye Exam Eye Exam: Normal appearance - ENT Exam ENT Exam: Mucous Membranes Moist - Respiratory Exam Respiratory Exam: Chest Wall Tenderness - Cardiovascular Exam Cardiovascular Exam: REGULAR RHYTHM, +S1, +S2. absent: Gallop, JVD - GI/Abdominal Exam GI & Abdominal Exam: Soft. absent: Rebound, Tenderness - Extremities Exam Extremities exam: full ROM, normal capillary refill, pedal pulses present Discharge Plan - Follow Up Plan Condition: FAIR Disposition: Trans to Other Acute Care Hosp Instructions: Heart Failure (DC), Heart Failure (GEN), Pacemaker (DC), Pacemaker (GEN), Pulmonary Edema (DC), Pulmonary Edema (GEN), Ascites (DC), Ascites (GEN)
== END 2017-06-10 08:12 | disposition short-term general hospital (02) | DRG 280 ==
LOC: C.ER 17:10 → C.9E 19:47 → C.6T 20:45
PROVIDERS: ADMIT Internal Medicine; ATTEND Internal Medicine
DX: I11.0 Hypertensive heart disease with heart failure (principal); I21.4 Non-ST elevation (NSTEMI) myocardial infarction; A41.9 Sepsis, unspecified organism; I26.99 Other pulmonary embolism without acute cor pulmonale; J18.9 Pneumonia, unspecified organism; A04.72 Enterocolitis due to Clostridium difficile, not specified as recurrent; E27.8 Other specified disorders of adrenal gland; I48.0 Paroxysmal atrial fibrillation; E87.1 Hypo-osmolality and hyponatremia; I50.9 Heart failure, unspecified; E03.9 Hypothyroidism, unspecified; E78.00 Pure hypercholesterolemia, unspecified; Z79.01 Long term (current) use of anticoagulants; D46.4 Refractory anemia, unspecified; Z86.711 Personal history of pulmonary embolism

== ENCOUNTER 2017-06-15 12:07 | Inpatient (IN) | payer MEDICARE, OTHER ==
[2017-06-15 12:08] VITALS: BMI 23.1
[2017-06-15] MEDS ORDERED: Metoprolol 1 mg/ml Inj IVP STA (12:45)
--- NOTE | 2017-06-15 12:47 | C.PDOC ---
History Of Present Illness 77 year old female presents to the ED for evaluation of recurrent SOB and fever since last night. Patient is status post DC last night and is also c/o midsternal chest pain. History is limited because patient is a poor historian. LIMITED POOR HISTORIAN RECUR SOB, FEVER SINCE LAST NIGHT. S/P DC LAST NIGHT. +MIDSTERNAL CP. ROS LIMTED EXAM MILD RESP DIST NONTOXIC HEENT NEG LUNGS +TACHYPNEA W RETRACTION; +BASILAR RALES MIN CV IRREG REG TACHY NO EDEMA REMAINDER NEG MDM NO IV CARDIZEM @ THIS FACILITY. 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 Time Seen by Provider: 06/15/17 12:30 Chief Complaint (Nursing): Shortness Of Breath History Per: Patient History/Exam Limitations: no limitations Onset/Duration Of Symptoms: Days Current Symptoms Are (Timing): Still Present Initiating Event: Other (SOB ) Associated Symptoms: Fever, Chest Pain Recent travel outside of the [place]: No Additional History Per: Patient Past Medical History Reviewed: Historical Data, Nursing Documentation, Vital Signs Vital Signs: Last Vital Signs Temp 100.5 F H 06/15/17 14:20 Pulse 107 H 06/15/17 14:20 Resp 24 06/15/17 14:20 BP 121/73 06/15/17 14:20 Pulse Ox 100 06/15/17 14:20 - Medical History PMH: Anemia, CHF, Gastritis, HTN, Hypercholesterolemia, Hyperthyroidism, Hypothyroidism, Pneumonia, Pulmonary Embolism Denies: Chronic Kidney Disease Surgical History: No Surg Hx - [facility] Procedures TRANSFUSE NONAUT RED BLOOD CELLS IN PERIPH VEIN, PERC (05/14/17) Family History: States: Unknown Family Hx - Social History Hx Alcohol Use: No Hx Substance Use: No - Immunization History Hx Tetanus Toxoid Vaccination: No Hx Influenza Vaccination: No Hx Pneumococcal Vaccination: No Review Of Systems Constitutional: Positive for: Fever Cardiovascular: Positive for: Chest Pain Respiratory: Positive for: Shortness of Breath Physical Exam - Physical Exam Appears: Non-toxic, Other (Mild respiratory distress) Skin: Normal Color, Warm, Dry Head: Atraumatic, Normacephalic Eye(s): bilateral: Normal Inspection Ear(s): Bilateral: Normal Nose: No Discharge, No Deformity Oral Mucosa: Moist Throat: Normal, No Erythema, No Exudate Chest: Symmetrical, No Tenderness Cardiovascular: Rhythm Irregular (tachycardic), No Edema, No Murmur Respiratory: Rales (+ basilar), No Rhonchi, No Wheezing, Other (tachypnea with retraction) Extremity: Normal ROM, No Calf Tenderness, No Deformity, No Swelling Neurological/Psych: Oriented x3, Normal Speech, Normal Cognition Gait: Steady ED Course And Treatment - Laboratory Results Result Diagrams: 06/15/17 13:26 06/15/17 13:26 ECG: Interpreted By Me ECG Rhythm: Atrial Fibrillation Rate From EC O2 Sat by Pulse Oximetry: 100 (On RA) Pulse Ox Interpretation: Normal - Radiology CXR: Interpreted by Me CXR Interpretation: Yes: Other (CHF) Progress - Re-Evaluation Re-evaluation Note: 06/15/17 14:40 APPEARS COMFORTABLE IMPROVED FROM INITIAL. HR 100 D/W DR MCGEE AWARE OF ER FINDINGS. ADMIT. REQUESTING RESTART ABX - Data Reviewed Data Reviewed: Lab, Diagnostic imaging, EKG, Old records - Critical Care Citical Care: Excluding Proc Time Critical Care Time: 120 minutes - Continuity of Care Discussed patient case with:: Patient, Family-HIPPA compliant Medical Decision Making Medical Decision Making: Impression : Recurrent SOB, chest pain, fever No IV cardizem at this facility, will dose with PO cardizem, lopressor. Plan: * EKG * CXR * Cardizem 30 mg PO * LAsix 40 mg IVP * Lopressor 5 mg IVP * Influenza A B test Disposition Counseled Patient/Family Regarding: Studies Performed, Diagnosis, Need For Followup - Disposition Disposition: HOSPITALIZED Disposition Time: 14:41 Condition: STABLE Forms: [facility] (Kinyarwanda) - POA Present On Arrival: None - Clinical Impression Clinical Impression: CHF (congestive heart failure), Rapid atrial fibrillation - Scribe Statement The provider has reviewed the documentation as recorded by the Scribe Brandt Skinner All medical record entries made by the Scribe were at my direction and personally dictated by me. I have reviewed the chart and agree that the record accurately reflects my personal performance of the history, physical exam, medical decision making, and the department course for this patient. I have also personally directed, reviewed, and agree with the discharge instructions and disposition. Decision To Admit - Pt Status Changed To: Hospital Disposition Of: Observation - . Bed Request Type: Telemetry Admitting Physician: Deion Mcgee Patient Diagnosis: CHF (congestive heart failure), Rapid atrial fibrillation
[2017-06-15] MEDS ORDERED: Metoprolol 1 mg/ml Inj IVP ONE (13:03)
--- NOTE | 2017-06-15 13:14 | RAD ---
PROCEDURE: CHEST RADIOGRAPH, 1 VIEW HISTORY: SOB COMPARISON: Comparison chest 06/06/2017 FINDINGS: LUNGS: Central pulmonary vasculature appears mildly congested with mild bibasilar atelectasis and small bilateral effusions. PLEURA: As above. No apparent pneumothorax CARDIOVASCULAR: Heart is enlarged. OSSEOUS STRUCTURES: No significant abnormalities. VISUALIZED UPPER ABDOMEN: Normal. OTHER FINDINGS: None. IMPRESSION: Mild central pulmonary vascular congestion with bilateral effusions and bibasilar atelectasis. Cardiomegaly.
[2017-06-15 13:27] LABS: VENOUS BLOOD GAS BASE EXCESS 7.6 mmol/L (0.0-2.0); VENOUS BLOOD GAS PCO2 43 mmHg (40-60); VENOUS BLOOD GAS PO2 22 mm/Hg (30-55); VENOUS BLOOD PH 7.48 (7.32-7.43)
[2017-06-15 13:41] LABS: HEMOGLOBIN 10.1 g/dL (11.0-16.0); MEAN CELL VOLUME 85.1 fL (81.0-99.0); MEAN CORPUSCULAR HEMOGLOBIN 29.3 pg (27.0-31.0); MEAN CORPUSCULAR HGB CONC 34.5 g/dL (33.0-37.0); MEAN PLATELET VOLUME 9.9 fL (7.2-11.7); PLATELET COUNT 398 K/uL (130-400); RBC 3.46 Mil/uL (3.80-5.20); RED CELL DISTRIBUTION WIDTH 16.6 % (11.5-14.5); WHITE BLOOD COUNT 6.3 K/uL (4.8-10.8)
[2017-06-15 13:46] LABS: ALB/GLOB RATIO 0.7 (1.0-2.1); ALBUMIN 3.3 g/dL (3.5-5.0); ALT/SGPT 11 U/L (9-52); AST/SGOT 48 U/L (14-36); BLOOD UREA NITROGEN 11 mg/dL (7-17); CALCIUM 8.2 mg/dl (8.6-10.4); GFR AFRICAN-AMERICAN > 60; GFR NON-AFRICAN AMERICAN > 60; INR 1.7; PROTHROMBIN TIME 19.3 SECONDS (9.7-12.2)
[2017-06-15 13:56] LABS: B-TYPE NATRIURETIC PEPTIDE 3700 pg/mL (0-900)
[2017-06-15 14:23] LABS: EOS % 3.1 % (0.0-4.0); LYMPH % 16.1 % (20.0-40.0); MONO % 2.9 % (0.0-10.0); NEUT % 77.9 % (50.0-75.0)
[2017-06-15 14:24] LABS: EOS # 0.2 K/uL (0.0-0.7); MONO # 0.2 K/uL (0.0-0.8); NEUT # 4.9 K/uL (1.8-7.0); NRBC % 0.3 % (0.0-2.0)
[2017-06-15 14:31] LABS: ANISOCYTOSIS SLIGHT; BANDS 17 % (0-2); EOSINOPHIL 2 % (0-4); LYMPHOCYTE 11 % (20-40); MONOCYTE 2 % (0-10); NEUTROPHIL 68 % (50-75); PLATELET ESTIMATE NORMAL (NORMAL); POIKILOCYTOSIS SLIGHT; TOTAL CELLS COUNTED 100
[2017-06-15 14:32] LABS: LARGE PLATELETS PRESENT; OVALOCYTES SLIGHT
[2017-06-15 14:33] LABS: GIANT PLATELETS PRESENT; SCHISTOCYTES SLIGHT
[2017-06-15] MEDS ORDERED: Piperacillin/Tazobact 3.375 gm 100 ML IV STA (14:42)
[2017-06-15] MEDS ORDERED: Piperacillin/Tazobact 3.375 gm 100 ML IVPB ONE (14:52)
--- NOTE | 2017-06-15 16:51 | CP.PCM.CON ---
History of Present Illness - History of Present Illness History of Present Illness: 77 year old female presents to the ED for evaluation of recurrent SOB and fever since last night. Patient is status post DC last night and is also c/o midsternal chest pain. History is limited because patient is a poor historian. recently had cardiac cath has severe CHF / right sided , severe MDS, CAD with RCA occlusion - not a surgical candidate admitted with recurrent fevers r/o sepsis Review of Systems - Constitutional Constitutional: Chills, Fatigue, Fever - EENT Eyes: absent: As Per HPI, Blind Spots, Blurred Vision, Change in Vision, Decreased Night Vision, Diplopia, Discharge, Dry Eye, Exophthalmos, Floaters, Irritation, Itchy Eyes, Loss of Peripheral Vision, Pain, Photophobia, Requires Corrective Lenses, Sees Flashes, Spots in Vision, Tunnel Vision, Other Visual Disturbances, Loss of Vision, Other Ears: absent: As Per HPI, Decreased Hearing, Ear Discharge, Ear Pain, Tinnitus, Abnormal Hearing, Disequilibrium, Dizziness, Other Nose/Mouth/Throat: absent: As Per HPI, Epistaxis, Nasal Congestion, Nasal Discharge, Nasal Obstruction, Nasal Trauma, Nose Pain, Post Nasal Drip, Sinus Pain, Sinus Pressure, Bleeding Gums, Change in Voice, Dental Pain, Dry Mouth, Dysphagia, Halitosis, Hoarsness, Lip Swelling, Mouth Lesions, Mouth Pain, Odynophagia, Sore Throat, Throat Swelling, Tongue Swelling, Facial Pain, Neck Pain, Neck Mass, Other - Breasts Breasts: absent: As Per HPI, Change in Shape, Mass, Pain, Nipple Discharge, Nipple Inversion, Skin Changes, Swelling, Other - Cardiovascular Cardiovascular: As Per HPI - Respiratory Respiratory: As Per HPI, Cough, Dyspnea - Gastrointestinal Gastrointestinal: absent: As Per HPI, Abdominal Pain, Belching, Bloating, Change in Bowel Habits, Change in Stool Character, Coffee Ground Emesis, Constipation, Cramping, Diarrhea, Dyspepsia, Dysphagia, Early Satiety, Excessive Flatus, Fecal Incontinence, Heartburn, Hematemesis, Hematochezia, Loose Stools, Melena, Nausea, Odynophagia, Temesmus, Vomiting, Other - Genitourinary Genitourinary: absent: As Per HPI, Change in Urinary Stream, Difficulty Urinating, Dysuria, Flank Pain, Hematuria, Pyuria, Nocturia, Urinary Incontinence, Urinary Frequency, Urinary Hesitance, Urinary Urgency, Voiding Freq/Small Amts, Freq UTI, Hx Renal/Bladder Calculi, Hx /Renal Surgery, Bladder Distension, Other - Reproductive: Female Reproductive:Female: absent: As Per HPI, Amenorrhea, Amenorrhea/ Control, Currently Menstual, Cycle <21 Days, Cycle >35 Days, Cycle Variable, Menses 1-7 Days, Menses >/= 8 Days, Menses Variable, Cycle > 4 Weeks Between, No Menses for 6 Months, Heavy Menses, Light Menses, Normal Menses, Spotting Between Cycles , S/P Hysterectomy, Menopausal, Post Menopausal, Premenarche, Abnormal Vaginal Bleeding, Dysmenorrhea, Dyspareunia, Genital Lesions, Genital Pruritis, Pelvic Pain, Prolapse Symptoms, Sexual Dysfunction, Vaginal Discharge, Vaginal Dryness , Vaginal Odor, Vaginal Pruritis, Other - Menstruation Menstruation: absent: As Per HPI, Amenorrhea, Amenorrhea/ Control, Currently Menstual, Cycle <21 Days, Cycle >35 Days, Cycle Variable, Menses 1-7 Days, Menses >/= 8 Days, Menses Variable, Cycle > 4 Weeks Between, No Menses for 6 Months, Heavy Menses, Light Menses, Normal Menses, Spotting Between Cycles , S/P Hysterectomy, Menopausal, Post Menopausal, Premenarche, Abnormal Vaginal Bleeding, Dysmenorrhea, Other - Musculoskeletal Musculoskeletal: absent: As Per HPI, Abnormal Gait, Arthralgias, Atrophy, Back Pain, Deformity, Joint Swelling, Limited Range of Motion, Loss of Height, Muscle Cramps, Muscle Weakness, Myalgias, Neck Pain, Numbness, Radiating Pain into Limb, Stiffness, Tingling, Other - Integumentary Integumentary: absent: As Per HPI, Acne, Alopecia, Bleeding Lesions, Change in Hair, Change in Nails, Change in Pigmentation, Changing Lesions, Dry Skin, Erythema, Furuncle, Hirsutism, Lesions, New Lesions, Non-Healing Lesions, Photosensitivity, Pruritus, Rash, Skin Pain, Skin Ulcer, Sores, Striae, Swelling , Unusual Bruising, Wounds, Jaundice, Other - Neurological Neurological: absent: As Per HPI, Abnormal Gait, Abnormal Hearing, Abnormal Movements, Abnormal Speech, Behavioral Changes, Burning Sensations, Confusion, Convulsions, Disequilibrium, Dizziness, Numbness, Focal Weakness, Frequent Falls , Headaches, Lack of Coordination, Loss of Vision, Memory Loss, Paresthesias, Radicular Pain, Restless Legs, Sensory Deficit, Syncope, Tingling, Tremor, Vertigo, Weakness, Other Visual Disturbances, Other - Psychiatric Psychiatric: absent: As Per HPI, Abnormal Sleep Pattern, Anhedonia, Anxiety, Auditory Hallucinations, Behavioral Changes, Change in Appetite, Change in Libido, Confusion, Depression, Difficulty Concentrating, Hallucinations, Homicidal Ideation, Hopelessness, Irritability, Memory Loss, Mood Swings, Panic Attacks, Paranoia, Suicidal Ideation, Visual Hallucinations, Tactile Hallucinations, Other - Endocrine Endocrine: absent: As Per HPI, Change in Body Appearance, Change in Libido, Cold Intolorance, Deepening of Voice, Excessive Sweating, Fatigue, Flushing, Heat Intolorance, Increase in Ring/Shoe/Hat Size, Palpitations, Polydipsia, Polyphagia, Polyuria, Other - Hematologic/Lymphatic Hematologic: absent: As Per HPI, Easy Bleeding, Easy Bruising, Lymphadenopathy, Other Past Patient History - Infectious Disease Hx of Infectious Diseases: None - Past Medical History & Family History Past Medical History?: Yes - Past Social History Smoking Status: Never Smoked - CARDIAC Hx Congestive Heart Failure: Yes Hx Hypercholesterolemia: Yes Hx Hypertension: Yes - PULMONARY Hx Pneumonia: Yes Hx Pulmonary Embolism: Yes - NEUROLOGICAL Hx Neurological Disorder: No - HEENT Hx HEENT Problems: No - RENAL Hx Chronic Kidney Disease: No - ENDOCRINE/METABOLIC Hx Hyperthyroidism: Yes Hx Hypothyroidism: Yes - HEMATOLOGICAL/ONCOLOGICAL Hx Anemia: Yes - INTEGUMENTARY Hx Dermatological Problems: No - MUSCULOSKELETAL/RHEUMATOLOGICAL Hx Musculoskeletal Disorders: Yes Hx Falls: Yes - GASTROINTESTINAL Hx Gastritis: Yes - GENITOURINARY/GYNECOLOGICAL Hx Genitourinary Disorders: No - PSYCHIATRIC Hx Substance Use: No - SURGICAL HISTORY Hx Surgeries: Yes Hx Cardiac Catheterization: Yes (2018) - ANESTHESIA Hx Anesthesia: No Hx Anesthesia Reactions: No Hx Malignant Hyperthermia: No Meds Allergies/Adverse Reactions: Allergies Allergy/AdvReac Type Severity Reaction Status Date / Time No Known Allergies Allergy Verified 06/15/17 12:10 - Medications Medications: Current Medications Albuterol/Ipratropium (Duoneb 3 Mg/0.5 Mg (3 Ml) Ud) 3 ml INH RQ6 PRN PRN Reason: Shortness of Breath Physical Exam - Constitutional Appears: No Acute Distress, Cachectic, Chronically Ill - Head Exam Head Exam: ATRAUMATIC, NORMAL INSPECTION, NORMOCEPHALIC - Eye Exam Eye Exam: EOMI, Normal appearance, PERRL Pupil Exam: NORMAL ACCOMODATION, PERRL - ENT Exam ENT Exam: Mucous Membranes Moist, Normal Exam - Neck Exam Neck exam: Positive for: Normal Inspection - Respiratory Exam Respiratory Exam: Decreased Breath Sounds, Prolonged Expiratory Phase, Rales, Wheezes - Cardiovascular Exam Cardiovascular Exam: REGULAR RHYTHM - GI/Abdominal Exam GI & Abdominal Exam: Normal Bowel Sounds, Soft. absent: Tenderness - Rectal Exam Rectal Exam: NORMAL INSPECTION - Exam Exam: Circumcision, NORMAL INSPECTION External exam: NORMAL EXTERNAL EXAM Speculum exam: NORMAL SPECULUM EXAM Bimanual exam: NORMAL BIMANUAL EXAM - Extremities Exam Extremities exam: Positive for: normal inspection - Back Exam Back exam: NORMAL INSPECTION - Neurological Exam Neurological exam: Alert, CN II-XII Intact, Normal Gait, Oriented x3, Reflexes Normal - Psychiatric Exam Psychiatric exam: Normal Affect, Normal Mood - Skin Skin Exam: Dry, Intact, Normal Color, Warm Results - Vital Signs Recent Vital Signs: Last Vital Signs Temp 100.5 F H 06/15/17 14:20 Pulse 107 H 06/15/17 14:20 Resp 24 06/15/17 14:20 BP 121/73 06/15/17 14:20 Pulse Ox 100 06/15/17 14:42 - Labs Result Diagrams: 06/17/17 07:10 06/18/17 06:59 Labs: Laboratory Results - last 24 hr 06/15/17 06/15/17 06/15/17 12:44 13:20 13:26 WBC 6.3 RBC 3.46 L Hgb 10.1 L Hct 29.4 L MCV 85.1 D MCH 29.3 MCHC 34.5 RDW 16.6 H Plt Count 398 MPV 9.9 Neut % (Auto) 77.9 H Lymph % (Auto) 16.1 L [place] % (Auto) 2.9 Eos % (Auto) 3.1 Baso % (Auto) 0.0 Neut # (Auto) 4.9 Lymph # (Auto) 1.0 [place] # (Auto) 0.2 Eos # (Auto) 0.2 Baso # (Auto) 0.0 Neutrophils % (Manual) 68 Band Neutrophils % 17 H* Lymphocytes % (Manual) 11 L Monocytes % (Manual) 2 Eosinophils % (Manual) 2 Platelet Estimate Normal Large Platelets Present Giant Platelets Present Poikilocytosis (manual Slight Anisocytosis (manual) Slight Ovalocytes Slight Schistocytes Slight PT INR APTT pO2 22 L VBG pH 7.48 H VBG pCO2 43 VBG HCO3 29.4 VBG Total CO2 33.3 H VBG O2 Sat (Calc) 42.9 VBG Base Excess 7.6 H VBG Potassium 3.3 L Sodium 131.0 L Chloride 99.0 Glucose 101 Lactate 1.4 Potassium Carbon Dioxide Anion Gap BUN Creatinine Est GFR ( Amer) Est GFR (Non-Af Amer) Random Glucose Calcium Total Bilirubin AST ALT Alkaline Phosphatase Troponin I NT-Pro-B Natriuret Pep Total Protein Albumin Globulin Albumin/Globulin Ratio Venous Blood Potassium 3.3 L Influenza Typ A,B (EIA) Negative for flu a/b 06/15/17 06/15/17 13:26 13:26 WBC RBC Hgb Hct MCV MCH MCHC RDW Plt Count MPV Neut % (Auto) Lymph % (Auto) [place] % (Auto) Eos % (Auto) Baso % (Auto) Neut # (Auto) Lymph # (Auto) [place] # (Auto) Eos # (Auto) Baso # (Auto) Neutrophils % (Manual) Band Neutrophils % Lymphocytes % (Manual) Monocytes % (Manual) Eosinophils % (Manual) Platelet Estimate Large Platelets Giant Platelets Poikilocytosis (manual Anisocytosis (manual) Ovalocytes Schistocytes PT 19.3 H INR 1.7 APTT 34 pO2 VBG pH VBG pCO2 VBG HCO3 VBG Total CO2 VBG O2 Sat (Calc) VBG Base Excess VBG Potassium Sodium 126 L Chloride 90 L Glucose Lactate Potassium 4.8 Carbon Dioxide 31 H Anion Gap 11 BUN 11 Creatinine 0.4 L Est GFR ( Amer) > 60 Est GFR (Non-Af Amer) > 60 Random Glucose 98 Calcium 8.2 L Total Bilirubin 2.4 H AST 48 H D ALT 11 Alkaline Phosphatase 130 H Troponin I 0.0150 NT-Pro-B Natriuret Pep 3700 H Total Protein 7.7 Albumin 3.3 L Globulin 4.4 H Albumin/Globulin Ratio 0.7 L Venous Blood Potassium Influenza Typ A,B (EIA) Assessment & Plan (1) CHF (congestive heart failure) Status: Acute (2) Rapid atrial fibrillation Status: Acute (3) CAD (coronary artery disease) Status: Acute (4) Cough Status: Acute (5) Dehydration Status: Acute (6) Hyponatremia Status: Acute (7) Lower respiratory infection Status: Acute (8) Myelodysplasia (myelodysplastic syndrome) Status: Acute - Assessment and Plan (Free Text) Assessment: await cultures cont IV antibiotics
[2017-06-15] MEDS ORDERED: Albuterol-Ipratrop 3 mg / 0.5 (3 ml) UD INH PRN (17:06)
[2017-06-15] MEDS ORDERED: Vancomycin 1 gm/NS 200 ml 1 GM/200 ML BAG IVPB ONE (17:30)
[2017-06-15] MEDS: Cefepime IV 1 gm in Dextrose 1 GM/50 ML BAG IVPB SCH (19:12)
[2017-06-15] MEDS: Albuterol-Ipratrop 3 mg / 0.5 (3 ml) UD INH SCH (20:37)
--- NOTE | 2017-06-15 22:31 | CP.PCM.CON ---
History of Present Illness - History of Present Illness History of Present Illness: Reason for consultation: acute sob HPI: 77 y/o alyson woman with multiple medical problems ie chronic SIADH, Myelodysplastic syndrome, recent pulmonary embolism, Paroxysmal Afib and recent cardiac cath revealed a humongous RCA with large thrombus in the distal RCA. No angioplasty baloon or stent is big enough to open the obstructing thrombus. A decision was made as per Dr Skinner recommendation to treat the patient medically with antiplatelet and anticoagulation. Pt was discharged home last night and a few hours later started experiencing acute hortness of breath which prompted the daughter to bring the patient back to the emergency room. Review of Systems - Constitutional Constitutional: Weakness - Cardiovascular Cardiovascular: Dyspnea. absent: Chest Pain - Respiratory Respiratory: Dyspnea on Exertion - Gastrointestinal Gastrointestinal: absent: Diarrhea, Hematemesis, Hematochezia - Musculoskeletal Musculoskeletal: Arthralgias. absent: Myalgias Past Patient History - Infectious Disease Hx of Infectious Diseases: None - Past Medical History & Family History Past Medical History?: Yes - Past Social History Smoking Status: Never Smoked - CARDIAC Hx Congestive Heart Failure: Yes Hx Hypercholesterolemia: Yes Hx Hypertension: Yes - PULMONARY Hx Pneumonia: Yes Hx Pulmonary Embolism: Yes - NEUROLOGICAL Hx Neurological Disorder: No - HEENT Hx HEENT Problems: No - RENAL Hx Chronic Kidney Disease: No - ENDOCRINE/METABOLIC Hx Hyperthyroidism: Yes Hx Hypothyroidism: Yes - HEMATOLOGICAL/ONCOLOGICAL Hx Anemia: Yes - INTEGUMENTARY Hx Dermatological Problems: No - MUSCULOSKELETAL/RHEUMATOLOGICAL Hx Musculoskeletal Disorders: Yes Hx Falls: Yes - GASTROINTESTINAL Hx Gastritis: Yes - GENITOURINARY/GYNECOLOGICAL Hx Genitourinary Disorders: No - PSYCHIATRIC Hx Substance Use: No - SURGICAL HISTORY Hx Surgeries: Yes Hx Cardiac Catheterization: Yes (2018) - ANESTHESIA Hx Anesthesia: No Hx Anesthesia Reactions: No Hx Malignant Hyperthermia: No Meds Allergies/Adverse Reactions: Allergies Allergy/AdvReac Type Severity Reaction Status Date / Time No Known Allergies Allergy Verified 06/15/17 12:10 - Medications Medications: Current Medications Acetaminophen (Tylenol 325mg Tab) 650 mg PO ONCE ONE Stop: 06/15/17 22:31 Albuterol/Ipratropium (Duoneb 3 Mg/0.5 Mg (3 Ml) Ud) 3 ml INH RQ4 [facility] Last Admin: 06/15/17 20:37 Dose: 3 ml Albuterol/Ipratropium (Duoneb 3 Mg/0.5 Mg (3 Ml) Ud) 3 ml INH RQ6 [facility] Amlodipine Besylate (Norvasc) 5 mg PO DAILY [facility] Apixaban (Eliquis) 5 mg PO BID [facility] Aspirin (Aspirin Chewable) 81 mg PO DAILY [facility] Cefepime HCl (Maxipime Iv 1 Gm Premix) 1 gm in 50 mls @ 100 mls/hr IVPB Q24H [facility] Last Admin: 06/15/17 19:12 Dose: 100 mls/hr Methimazole (Tapazole) 5 mg PO DAILY [facility] Metoprolol Succinate (Toprol Xl) 50 mg PO BID [facility] Multivitamins (Hexavitamin) 1 tab PO DAILY [facility] Physical Exam - Constitutional Appears: In Acute Distress - Head Exam Head Exam: NORMAL INSPECTION - Eye Exam Eye Exam: absent: Scleral icterus - ENT Exam ENT Exam: Mucous Membranes Moist - Neck Exam Neck exam: Positive for: Full Rom - Respiratory Exam Respiratory Exam: Decreased Breath Sounds - Cardiovascular Exam Cardiovascular Exam: REGULAR RHYTHM - GI/Abdominal Exam GI & Abdominal Exam: Soft. absent: Tenderness - Extremities Exam Extremities exam: Negative for: calf tenderness, pedal edema - Neurological Exam Neurological exam: Alert, Oriented x3 Results - Vital Signs Recent Vital Signs: Last Vital Signs Temp 101 F H 06/15/17 21:57 Pulse 4 L 06/15/17 18:25 Resp 20 06/15/17 16:30 BP 114/71 06/15/17 16:30 Pulse Ox 100 06/15/17 16:32 - Labs Result Diagrams: 06/15/17 13:26 06/15/17 13:26 Labs: Laboratory Results - last 24 hr 06/15/17 06/15/17 06/15/17 12:44 13:20 13:26 WBC 6.3 RBC 3.46 L Hgb 10.1 L Hct 29.4 L MCV 85.1 D MCH 29.3 MCHC 34.5 RDW 16.6 H Plt Count 398 MPV 9.9 Neut % (Auto) 77.9 H Lymph % (Auto) 16.1 L [place] % (Auto) 2.9 Eos % (Auto) 3.1 Baso % (Auto) 0.0 Neut # (Auto) 4.9 Lymph # (Auto) 1.0 [place] # (Auto) 0.2 Eos # (Auto) 0.2 Baso # (Auto) 0.0 Neutrophils % (Manual) 68 Band Neutrophils % 17 H* Lymphocytes % (Manual) 11 L Monocytes % (Manual) 2 Eosinophils % (Manual) 2 Platelet Estimate Normal Large Platelets Present Giant Platelets Present Poikilocytosis (manual Slight Anisocytosis (manual) Slight Ovalocytes Slight Schistocytes Slight PT INR APTT pO2 22 L VBG pH 7.48 H VBG pCO2 43 VBG HCO3 29.4 VBG Total CO2 33.3 H VBG O2 Sat (Calc) 42.9 VBG Base Excess 7.6 H VBG Potassium 3.3 L Sodium 131.0 L Chloride 99.0 Glucose 101 Lactate 1.4 Potassium Carbon Dioxide Anion Gap BUN Creatinine Est GFR ( Amer) Est GFR (Non-Af Amer) Random Glucose Calcium Total Bilirubin AST ALT Alkaline Phosphatase Troponin I NT-Pro-B Natriuret Pep Total Protein Albumin Globulin Albumin/Globulin Ratio Venous Blood Potassium 3.3 L Influenza Typ A,B (EIA) Negative for flu a/b 06/15/17 06/15/17 13:26 13:26 WBC RBC Hgb Hct MCV MCH MCHC RDW Plt Count MPV Neut % (Auto) Lymph % (Auto) [place] % (Auto) Eos % (Auto) Baso % (Auto) Neut # (Auto) Lymph # (Auto) [place] # (Auto) Eos # (Auto) Baso # (Auto) Neutrophils % (Manual) Band Neutrophils % Lymphocytes % (Manual) Monocytes % (Manual) Eosinophils % (Manual) Platelet Estimate Large Platelets Giant Platelets Poikilocytosis (manual Anisocytosis (manual) Ovalocytes Schistocytes PT 19.3 H INR 1.7 APTT 34 pO2 VBG pH VBG pCO2 VBG HCO3 VBG Total CO2 VBG O2 Sat (Calc) VBG Base Excess VBG Potassium Sodium 126 L Chloride 90 L Glucose Lactate Potassium 4.8 Carbon Dioxide 31 H Anion Gap 11 BUN 11 Creatinine 0.4 L Est GFR ( Amer) > 60 Est GFR (Non-Af Amer) > 60 Random Glucose 98 Calcium 8.2 L Total Bilirubin 2.4 H AST 48 H D ALT 11 Alkaline Phosphatase 130 H Troponin I 0.0150 NT-Pro-B Natriuret Pep 3700 H Total Protein 7.7 Albumin 3.3 L Globulin 4.4 H Albumin/Globulin Ratio 0.7 L Venous Blood Potassium Influenza Typ A,B (EIA) Assessment & Plan - Assessment and Plan (Free Text) Assessment: CHF COPD r/o Sepsis Myelodysplastic syndrome Chronic SIADH Plan: Cont nebulizer treatment ABtx by Dr Hernandez Renal consult w/ Dr Tabor Heme consult with Dr Meyer
--- NOTE | 2017-06-15 22:57 | CP.PCM.CON ---
Past Patient History - Infectious Disease Hx of Infectious Diseases: None - Past Medical History & Family History Past Medical History?: Yes - Past Social History Smoking Status: Never Smoked - CARDIAC Hx Congestive Heart Failure: Yes Hx Hypercholesterolemia: Yes Hx Hypertension: Yes - PULMONARY Hx Pneumonia: Yes Hx Pulmonary Embolism: Yes - NEUROLOGICAL Hx Neurological Disorder: No - HEENT Hx HEENT Problems: No - RENAL Hx Chronic Kidney Disease: No - ENDOCRINE/METABOLIC Hx Hyperthyroidism: Yes Hx Hypothyroidism: Yes - HEMATOLOGICAL/ONCOLOGICAL Hx Anemia: Yes - INTEGUMENTARY Hx Dermatological Problems: No - MUSCULOSKELETAL/RHEUMATOLOGICAL Hx Musculoskeletal Disorders: Yes Hx Falls: Yes - GASTROINTESTINAL Hx Gastritis: Yes - GENITOURINARY/GYNECOLOGICAL Hx Genitourinary Disorders: No - PSYCHIATRIC Hx Substance Use: No - SURGICAL HISTORY Hx Surgeries: Yes Hx Cardiac Catheterization: Yes (2018) - ANESTHESIA Hx Anesthesia: No Hx Anesthesia Reactions: No Hx Malignant Hyperthermia: No Meds Allergies/Adverse Reactions: Allergies Allergy/AdvReac Type Severity Reaction Status Date / Time No Known Allergies Allergy Verified 06/15/17 12:10 - Medications Medications: Current Medications Albuterol/Ipratropium (Duoneb 3 Mg/0.5 Mg (3 Ml) Ud) 3 ml INH RQ4 [facility] Last Admin: 06/15/17 20:37 Dose: 3 ml Albuterol/Ipratropium (Duoneb 3 Mg/0.5 Mg (3 Ml) Ud) 3 ml INH RQ6 [facility] Amlodipine Besylate (Norvasc) 5 mg PO DAILY [facility] Apixaban (Eliquis) 5 mg PO BID [facility] Aspirin (Aspirin Chewable) 81 mg PO DAILY [facility] Cefepime HCl (Maxipime Iv 1 Gm Premix) 1 gm in 50 mls @ 100 mls/hr IVPB Q24H [facility] Last Admin: 06/15/17 19:12 Dose: 100 mls/hr Methimazole (Tapazole) 5 mg PO DAILY [facility] Metoprolol Succinate (Toprol Xl) 50 mg PO BID [facility] Multivitamins (Hexavitamin) 1 tab PO DAILY [facility] Results - Vital Signs Recent Vital Signs: Last Vital Signs Temp 101 F H 06/15/17 22:23 Pulse 4 L 06/15/17 18:25 Resp 20 06/15/17 16:30 BP 114/71 06/15/17 16:30 Pulse Ox 100 06/15/17 16:32 - Labs Result Diagrams: 06/15/17 13:26 06/15/17 13:26 Labs: Laboratory Results - last 24 hr 06/15/17 06/15/17 06/15/17 12:44 13:20 13:26 WBC 6.3 RBC 3.46 L Hgb 10.1 L Hct 29.4 L MCV 85.1 D MCH 29.3 MCHC 34.5 RDW 16.6 H Plt Count 398 MPV 9.9 Neut % (Auto) 77.9 H Lymph % (Auto) 16.1 L [place] % (Auto) 2.9 Eos % (Auto) 3.1 Baso % (Auto) 0.0 Neut # (Auto) 4.9 Lymph # (Auto) 1.0 [place] # (Auto) 0.2 Eos # (Auto) 0.2 Baso # (Auto) 0.0 Neutrophils % (Manual) 68 Band Neutrophils % 17 H* Lymphocytes % (Manual) 11 L Monocytes % (Manual) 2 Eosinophils % (Manual) 2 Platelet Estimate Normal Large Platelets Present Giant Platelets Present Poikilocytosis (manual Slight Anisocytosis (manual) Slight Ovalocytes Slight Schistocytes Slight PT INR APTT pO2 22 L VBG pH 7.48 H VBG pCO2 43 VBG HCO3 29.4 VBG Total CO2 33.3 H VBG O2 Sat (Calc) 42.9 VBG Base Excess 7.6 H VBG Potassium 3.3 L Sodium 131.0 L Chloride 99.0 Glucose 101 Lactate 1.4 Potassium Carbon Dioxide Anion Gap BUN Creatinine Est GFR ( Amer) Est GFR (Non-Af Amer) Random Glucose Calcium Total Bilirubin AST ALT Alkaline Phosphatase Troponin I NT-Pro-B Natriuret Pep Total Protein Albumin Globulin Albumin/Globulin Ratio Venous Blood Potassium 3.3 L Influenza Typ A,B (EIA) Negative for flu a/b 06/15/17 06/15/17 13:26 13:26 WBC RBC Hgb Hct MCV MCH MCHC RDW Plt Count MPV Neut % (Auto) Lymph % (Auto) [place] % (Auto) Eos % (Auto) Baso % (Auto) Neut # (Auto) Lymph # (Auto) [place] # (Auto) Eos # (Auto) Baso # (Auto) Neutrophils % (Manual) Band Neutrophils % Lymphocytes % (Manual) Monocytes % (Manual) Eosinophils % (Manual) Platelet Estimate Large Platelets Giant Platelets Poikilocytosis (manual Anisocytosis (manual) Ovalocytes Schistocytes PT 19.3 H INR 1.7 APTT 34 pO2 VBG pH VBG pCO2 VBG HCO3 VBG Total CO2 VBG O2 Sat (Calc) VBG Base Excess VBG Potassium Sodium 126 L Chloride 90 L Glucose Lactate Potassium 4.8 Carbon Dioxide 31 H Anion Gap 11 BUN 11 Creatinine 0.4 L Est GFR ( Amer) > 60 Est GFR (Non-Af Amer) > 60 Random Glucose 98 Calcium 8.2 L Total Bilirubin 2.4 H AST 48 H D ALT 11 Alkaline Phosphatase 130 H Troponin I 0.0150 NT-Pro-B Natriuret Pep 3700 H Total Protein 7.7 Albumin 3.3 L Globulin 4.4 H Albumin/Globulin Ratio 0.7 L Venous Blood Potassium Influenza Typ A,B (EIA)
[2017-06-15 23:44] LABS: SQUAMOUS EPITHIAL 1 /hpf (0-5); URINE BACTERIA RARE (<OCC); URINE BILIRUBIN NEGATIVE (NEGATIVE); URINE BLOOD NEGATIVE (NEGATIVE); URINE CLARITY Clear (Clear); URINE COLOR Yellow (YELLOW); URINE GLUCOSE (UA) NORMAL (Normal); URINE LEUKOCYTE ESTERASE NEG Leu/uL (Negative); URINE NITRATE NEGATIVE (NEGATIVE); URINE PROTEIN NEGATIVE (NEGATIVE); URINE UROBILINOGEN NORMAL mg/dL (0.2-1.0)
[2017-06-16] MEDS: Albuterol-Ipratrop 3 mg / 0.5 (3 ml) UD INH SCH ×7 (00:08→20:36)
[2017-06-16 08:13] LABS: HEPATITIS B SURFACE AG Negative (NEGATIVE)
[2017-06-16 08:21] LABS: HEPATITIS A IGM NEGATIVE (NEGATIVE); HEPATITIS B CORE AB NEGATIVE (NEGATIVE)
[2017-06-16 08:31] LABS: HEPATITIS C ANTIBODY NEGATIVE (NEGATIVE)
[2017-06-16 08:32] LABS: OSMOLALITY,URINE 634 mosm/kg (300-1000)
--- NOTE | 2017-06-16 09:28 | CP.PCM.HP ---
History of Present Illness - History of Present Illness History of Present Illness: CC: Short of breath 77 y/o female with MDS, recent PE (04/2017), CAD. Pt recent admission for Pneumonia and NSTEMI. Patient sent for (+) Cath but unable to mechanically open the obstructive vessel. Patient treated medically and sent home. At home she felt weak, short of breath - sent back to ER Present on Admission - Present on Admission Any Indicators Present on Admission: Yes History of DVT/PE: No History of Uncontrolled Diabetes: No Review of Systems - Review of Systems Systems not reviewed;Unavailable: Acuity of Condition - Constitutional Constitutional: Daytime Sleepiness, Malaise. absent: Headache, Snoring - EENT Eyes: Blurred Vision, Change in Vision, Diplopia. absent: Blind Spots, Loss of Peripheral Vision, Requires Corrective Lenses Ears: Dizziness. absent: Ear Pain, Tinnitus, Disequilibrium Nose/Mouth/Throat: absent: Nasal Congestion, Nasal Discharge, Post Nasal Drip, Dysphagia, Mouth Pain, Odynophagia, Neck Pain - Breasts Breasts: absent: Mass - Cardiovascular Cardiovascular: Edema, Pedal Edema. absent: Chest Pain, Diaphoresis, Leg Edema , Leg Ulcers, Palpitations, Syncope - Respiratory Respiratory: Cough, Dyspnea, Dyspnea on Exertion. absent: Hemoptysis, Wheezing , Pain on Inspiration, Chest Congestion, Excessive Mucous Production - Gastrointestinal Gastrointestinal: absent: Abdominal Pain, Diarrhea, Dyspepsia, Fecal Incontinence, Loose Stools - Genitourinary Genitourinary: absent: Change in Urinary Stream, Hematuria, Urinary Hesitance, Urinary Urgency - Musculoskeletal Musculoskeletal: Back Pain. absent: Abnormal Gait, Arthralgias, Atrophy, Joint Swelling Past Patient History - Infectious Disease Hx of Infectious Diseases: None - Past Medical History & Family History Past Medical History?: Yes - Past Social History Smoking Status: Never Smoked - CARDIAC Hx Congestive Heart Failure: Yes Hx Hypercholesterolemia: Yes Hx Hypertension: Yes - PULMONARY Hx Pneumonia: Yes Hx Pulmonary Embolism: Yes - NEUROLOGICAL Hx Neurological Disorder: No - HEENT Hx HEENT Problems: No - RENAL Hx Chronic Kidney Disease: No - ENDOCRINE/METABOLIC Hx Hyperthyroidism: Yes Hx Hypothyroidism: Yes - HEMATOLOGICAL/ONCOLOGICAL Hx Anemia: Yes - INTEGUMENTARY Hx Dermatological Problems: No - MUSCULOSKELETAL/RHEUMATOLOGICAL Hx Musculoskeletal Disorders: Yes Hx Falls: Yes - GASTROINTESTINAL Hx Gastritis: Yes - GENITOURINARY/GYNECOLOGICAL Hx Genitourinary Disorders: No - PSYCHIATRIC Hx Substance Use: No - SURGICAL HISTORY Hx Surgeries: Yes Hx Cardiac Catheterization: Yes (2018) - ANESTHESIA Hx Anesthesia: No Hx Anesthesia Reactions: No Hx Malignant Hyperthermia: No Meds Allergies/Adverse Reactions: Allergies Allergy/AdvReac Type Severity Reaction Status Date / Time No Known Allergies Allergy Verified 06/15/17 12:10 Physical Exam - Constitutional Appears: No Acute Distress - Eye Exam Eye Exam: Normal appearance. absent: Periorbital tenderness, Scleral icterus Pupil Exam: PERRL ((+) pale conjunctiva). absent: Miosis - ENT Exam ENT Exam: Mucous Membranes Dry, Normal Oropharynx - Neck Exam Neck exam: Positive for: Full Rom. Negative for: Lymphadenopathy, Thyromegaly - Respiratory Exam Respiratory Exam: Decreased Breath Sounds. absent: Rales, Rhonchi, Wheezes - Cardiovascular Exam Cardiovascular Exam: REGULAR RHYTHM, +S1, +S2. absent: Gallop, JVD - GI/Abdominal Exam GI & Abdominal Exam: Soft. absent: Pulsatile Mass, Tenderness - Extremities Exam Extremities exam: Positive for: full ROM, normal capillary refill. Negative for : calf tenderness, joint swelling, pedal edema Results - Vital Signs Recent Vital Signs: Last Vital Signs Temp 98.2 F 06/16/17 05:00 Pulse 109 H 06/16/17 05:00 Resp 20 06/16/17 05:00 BP 105/66 06/16/17 05:00 Pulse Ox 99 06/16/17 05:00 - Labs Result Diagrams: 06/15/17 13:26 06/15/17 13:26 Labs: Laboratory Results - last 24 hr 06/15/17 06/15/17 06/15/17 12:44 13:20 13:26 WBC 6.3 RBC 3.46 L Hgb 10.1 L Hct 29.4 L MCV 85.1 D MCH 29.3 MCHC 34.5 RDW 16.6 H Plt Count 398 MPV 9.9 Neut % (Auto) 77.9 H Lymph % (Auto) 16.1 L [place] % (Auto) 2.9 Eos % (Auto) 3.1 Baso % (Auto) 0.0 Neut # (Auto) 4.9 Lymph # (Auto) 1.0 [place] # (Auto) 0.2 Eos # (Auto) 0.2 Baso # (Auto) 0.0 Neutrophils % (Manual) 68 Band Neutrophils % 17 H* Lymphocytes % (Manual) 11 L Monocytes % (Manual) 2 Eosinophils % (Manual) 2 Platelet Estimate Normal Large Platelets Present Giant Platelets Present Poikilocytosis (manual Slight Anisocytosis (manual) Slight Ovalocytes Slight Schistocytes Slight PT INR APTT pO2 22 L VBG pH 7.48 H VBG pCO2 43 VBG HCO3 29.4 VBG Total CO2 33.3 H VBG O2 Sat (Calc) 42.9 VBG Base Excess 7.6 H VBG Potassium 3.3 L Sodium 131.0 L Chloride 99.0 Glucose 101 Lactate 1.4 Potassium Carbon Dioxide Anion Gap BUN Creatinine Est GFR ( Amer) Est GFR (Non-Af Amer) Random Glucose Calcium Total Bilirubin AST ALT Alkaline Phosphatase Troponin I NT-Pro-B Natriuret Pep Total Protein Albumin Globulin Albumin/Globulin Ratio Venous Blood Potassium 3.3 L Urine Color Urine Clarity Urine pH Ur Specific [place] Urine Protein Urine Glucose (UA) Urine Ketones Urine Blood Urine Nitrate Urine Bilirubin Urine Urobilinogen Ur Leukocyte Esterase Urine WBC (Auto) Urine RBC (Auto) Ur Squamous Epith Cells Ur Transition Epith Cell Urine Bacteria Urine Osmolality Ur Random Sodium Hepatitis A IgM Ab Hep Bs Antigen Hep B Core IgM Ab Hepatitis C Antibody HIV 1&2 Antibody Screen Influenza Typ A,B (EIA) Negative for flu a/b 06/15/17 06/15/17 06/15/17 13:26 13:26 23:37 WBC RBC Hgb Hct MCV MCH MCHC RDW Plt Count MPV Neut % (Auto) Lymph % (Auto) [place] % (Auto) Eos % (Auto) Baso % (Auto) Neut # (Auto) Lymph # (Auto) [place] # (Auto) Eos # (Auto) Baso # (Auto) Neutrophils % (Manual) Band Neutrophils % Lymphocytes % (Manual) Monocytes % (Manual) Eosinophils % (Manual) Platelet Estimate Large Platelets Giant Platelets Poikilocytosis (manual Anisocytosis (manual) Ovalocytes Schistocytes PT 19.3 H INR 1.7 APTT 34 pO2 VBG pH VBG pCO2 VBG HCO3 VBG Total CO2 VBG O2 Sat (Calc) VBG Base Excess VBG Potassium Sodium 126 L Chloride 90 L Glucose Lactate Potassium 4.8 Carbon Dioxide 31 H Anion Gap 11 BUN 11 Creatinine 0.4 L Est GFR ( Amer) > 60 Est GFR (Non-Af Amer) > 60 Random Glucose 98 Calcium 8.2 L Total Bilirubin 2.4 H AST 48 H D ALT 11 Alkaline Phosphatase 130 H Troponin I 0.0150 NT-Pro-B Natriuret Pep 3700 H Total Protein 7.7 Albumin 3.3 L Globulin 4.4 H Albumin/Globulin Ratio 0.7 L Venous Blood Potassium Urine Color Yellow Urine Clarity Clear Urine pH 5.0 Ur Specific [place] 1.010 Urine Protein Negative Urine Glucose (UA) Normal Urine Ketones Negative Urine Blood Negative Urine Nitrate Negative Urine Bilirubin Negative Urine Urobilinogen Normal Ur Leukocyte Esterase Neg Urine WBC (Auto) 1 Urine RBC (Auto) 1 Ur Squamous Epith Cells 1 Ur Transition Epith Cell < 1 Urine Bacteria Rare Urine Osmolality Ur Random Sodium Hepatitis A IgM Ab Hep Bs Antigen Hep B Core IgM Ab Hepatitis C Antibody HIV 1&2 Antibody Screen Influenza Typ A,B (EIA) 06/16/17 06/16/17 06/16/17 06:34 06:34 07:07 WBC RBC Hgb Hct MCV MCH MCHC RDW Plt Count MPV Neut % (Auto) Lymph % (Auto) [place] % (Auto) Eos % (Auto) Baso % (Auto) Neut # (Auto) Lymph # (Auto) [place] # (Auto) Eos # (Auto) Baso # (Auto) Neutrophils % (Manual) Band Neutrophils % Lymphocytes % (Manual) Monocytes % (Manual) Eosinophils % (Manual) Platelet Estimate Large Platelets Giant Platelets Poikilocytosis (manual Anisocytosis (manual) Ovalocytes Schistocytes PT INR APTT pO2 VBG pH VBG pCO2 VBG HCO3 VBG Total CO2 VBG O2 Sat (Calc) VBG Base Excess VBG Potassium Sodium Chloride Glucose Lactate Potassium Carbon Dioxide Anion Gap BUN Creatinine Est GFR ( Amer) Est GFR (Non-Af Amer) Random Glucose Calcium Total Bilirubin AST ALT Alkaline Phosphatase Troponin I NT-Pro-B Natriuret Pep Total Protein Albumin Globulin Albumin/Globulin Ratio Venous Blood Potassium Urine Color Urine Clarity Urine pH Ur Specific [place] Urine Protein Urine Glucose (UA) Urine Ketones Urine Blood Urine Nitrate Urine Bilirubin Urine Urobilinogen Ur Leukocyte Esterase Urine WBC (Auto) Urine RBC (Auto) Ur Squamous Epith Cells Ur Transition Epith Cell Urine Bacteria Urine Osmolality 634 Ur Random Sodium 45 Hepatitis A IgM Ab Negative Hep Bs Antigen Negative Hep B Core IgM Ab Negative Hepatitis C Antibody Negative HIV 1&2 Antibody Screen Negative Influenza Typ A,B (EIA) - EKG Data EKG Interpreted by: Myself (At [facility]) - Impressions Impression: CAD, Atrial fib; CHF Recent pneumonia - unlikely finish antibiotic course MDS, Recent PE, HTN, hyperthyroidism, gen debility Meds reviewed For Sub acute
[2017-06-16] MEDS: Metoprolol Succinate 50 mg XL Tab PO SCH ×2 (10:26→18:04)
[2017-06-16] MEDS: Multiple Vitamins Tab PO SCH (10:26)
[2017-06-16] MEDS: methIMAzole 5 MG TAB PO SCH (10:27)
--- NOTE | 2017-06-16 11:56 | CP.PCM.CON ---
History of Present Illness - History of Present Illness History of Present Illness: Reason for consultation: shortness of breath and fever 77-year-old female with past history significant for myelodysplastic syndrome, hypertension, pulmonary embolism, C. difficile colitis, hyponatremia, recent cardiac catheter with large thrombus in distal RCA with no intervention and medical management only, presented with shortness of breath and fever. Chest x- ray consistent with congestive changes and atelectasis Review of Systems - Review of Systems All systems: reviewed and no additional remarkable complaints except (shortness of breath and fever) Past Patient History - Infectious Disease Hx of Infectious Diseases: None - Past Medical History & Family History Past Medical History?: Yes - Past Social History Smoking Status: Never Smoked - CARDIAC Hx Congestive Heart Failure: Yes Hx Hypercholesterolemia: Yes Hx Hypertension: Yes - PULMONARY Hx Pneumonia: Yes Hx Pulmonary Embolism: Yes - NEUROLOGICAL Hx Neurological Disorder: No - HEENT Hx HEENT Problems: No - RENAL Hx Chronic Kidney Disease: No - ENDOCRINE/METABOLIC Hx Hyperthyroidism: Yes Hx Hypothyroidism: Yes - HEMATOLOGICAL/ONCOLOGICAL Hx Anemia: Yes - INTEGUMENTARY Hx Dermatological Problems: No - MUSCULOSKELETAL/RHEUMATOLOGICAL Hx Musculoskeletal Disorders: Yes Hx Falls: Yes - GASTROINTESTINAL Hx Gastritis: Yes - GENITOURINARY/GYNECOLOGICAL Hx Genitourinary Disorders: No - PSYCHIATRIC Hx Substance Use: No - SURGICAL HISTORY Hx Surgeries: Yes Hx Cardiac Catheterization: Yes (2018) - ANESTHESIA Hx Anesthesia: No Hx Anesthesia Reactions: No Hx Malignant Hyperthermia: No Meds Allergies/Adverse Reactions: Allergies Allergy/AdvReac Type Severity Reaction Status Date / Time No Known Allergies Allergy Verified 06/15/17 12:10 - Medications Medications: Current Medications Albuterol/Ipratropium (Duoneb 3 Mg/0.5 Mg (3 Ml) Ud) 3 ml INH RQ6 [facility] Last Admin: 06/16/17 05:19 Dose: 3 ml Amlodipine Besylate (Norvasc) 5 mg PO DAILY [facility] Last Admin: 06/16/17 10:26 Dose: 5 mg Apixaban (Eliquis) 5 mg PO BID [facility] Last Admin: 06/16/17 10:26 Dose: 5 mg Aspirin (Aspirin Chewable) 81 mg PO DAILY [facility] Last Admin: 06/16/17 10:26 Dose: 81 mg Furosemide (Lasix) 20 mg IVP DAILY [facility] Last Admin: 06/16/17 10:25 Dose: 20 mg Cefepime HCl (Maxipime Iv 1 Gm Premix) 1 gm in 50 mls @ 100 mls/hr IVPB Q24H [facility] Last Admin: 06/15/17 19:12 Dose: 100 mls/hr Losartan Potassium (Cozaar) 25 mg PO DAILY [facility] Last Admin: 06/16/17 10:26 Dose: 25 mg Methimazole (Tapazole) 5 mg PO DAILY [facility] Last Admin: 06/16/17 10:27 Dose: 5 mg Methylprednisolone (Solu-Medrol) 40 mg IVP Q8 [facility] Metoprolol Succinate (Toprol Xl) 50 mg PO BID [facility] Last Admin: 06/16/17 10:26 Dose: 50 mg Multivitamins (Hexavitamin) 1 tab PO DAILY [facility] Last Admin: 06/16/17 10:26 Dose: 1 tab Physical Exam - Head Exam Head Exam: ATRAUMATIC, NORMOCEPHALIC - Eye Exam Eye Exam: Normal appearance - ENT Exam ENT Exam: Mucous Membranes Moist - Neck Exam Neck exam: Positive for: Normal Inspection - Respiratory Exam Respiratory Exam: Rales, Rhonchi - Cardiovascular Exam Cardiovascular Exam: REGULAR RHYTHM Results - Vital Signs Recent Vital Signs: Last Vital Signs Temp 98.9 F 06/16/17 08:10 Pulse 109 H 06/16/17 08:10 Resp 18 06/16/17 08:10 BP 109/59 L 06/16/17 10:25 Pulse Ox 99 06/16/17 08:10 - Labs Result Diagrams: 06/15/17 13:26 06/15/17 13:26 Labs: Laboratory Results - last 24 hr 06/15/17 06/15/17 06/15/17 12:44 13:20 13:26 WBC 6.3 RBC 3.46 L Hgb 10.1 L Hct 29.4 L MCV 85.1 D MCH 29.3 MCHC 34.5 RDW 16.6 H Plt Count 398 MPV 9.9 Neut % (Auto) 77.9 H Lymph % (Auto) 16.1 L [place] % (Auto) 2.9 Eos % (Auto) 3.1 Baso % (Auto) 0.0 Neut # (Auto) 4.9 Lymph # (Auto) 1.0 [place] # (Auto) 0.2 Eos # (Auto) 0.2 Baso # (Auto) 0.0 Neutrophils % (Manual) 68 Band Neutrophils % 17 H* Lymphocytes % (Manual) 11 L Monocytes % (Manual) 2 Eosinophils % (Manual) 2 Platelet Estimate Normal Large Platelets Present Giant Platelets Present Poikilocytosis (manual Slight Anisocytosis (manual) Slight Ovalocytes Slight Schistocytes Slight PT INR APTT pO2 22 L VBG pH 7.48 H VBG pCO2 43 VBG HCO3 29.4 VBG Total CO2 33.3 H VBG O2 Sat (Calc) 42.9 VBG Base Excess 7.6 H VBG Potassium 3.3 L Sodium 131.0 L Chloride 99.0 Glucose 101 Lactate 1.4 Potassium Carbon Dioxide Anion Gap BUN Creatinine Est GFR ( Amer) Est GFR (Non-Af Amer) Random Glucose Calcium Total Bilirubin AST ALT Alkaline Phosphatase Troponin I NT-Pro-B Natriuret Pep Total Protein Albumin Globulin Albumin/Globulin Ratio Venous Blood Potassium 3.3 L Urine Color Urine Clarity Urine pH Ur Specific [place] Urine Protein Urine Glucose (UA) Urine Ketones Urine Blood Urine Nitrate Urine Bilirubin Urine Urobilinogen Ur Leukocyte Esterase Urine WBC (Auto) Urine RBC (Auto) Ur Squamous Epith Cells Ur Transition Epith Cell Urine Bacteria Urine Osmolality Ur Random Sodium Hepatitis A IgM Ab Hep Bs Antigen Hep B Core IgM Ab Hepatitis C Antibody HIV 1&2 Antibody Screen Influenza Typ A,B (EIA) Negative for flu a/b 06/15/17 06/15/17 06/15/17 13:26 13:26 23:37 WBC RBC Hgb Hct MCV MCH MCHC RDW Plt Count MPV Neut % (Auto) Lymph % (Auto) [place] % (Auto) Eos % (Auto) Baso % (Auto) Neut # (Auto) Lymph # (Auto) [place] # (Auto) Eos # (Auto) Baso # (Auto) Neutrophils % (Manual) Band Neutrophils % Lymphocytes % (Manual) Monocytes % (Manual) Eosinophils % (Manual) Platelet Estimate Large Platelets Giant Platelets Poikilocytosis (manual Anisocytosis (manual) Ovalocytes Schistocytes PT 19.3 H INR 1.7 APTT 34 pO2 VBG pH VBG pCO2 VBG HCO3 VBG Total CO2 VBG O2 Sat (Calc) VBG Base Excess VBG Potassium Sodium 126 L Chloride 90 L Glucose Lactate Potassium 4.8 Carbon Dioxide 31 H Anion Gap 11 BUN 11 Creatinine 0.4 L Est GFR ( Amer) > 60 Est GFR (Non-Af Amer) > 60 Random Glucose 98 Calcium 8.2 L Total Bilirubin 2.4 H AST 48 H D ALT 11 Alkaline Phosphatase 130 H Troponin I 0.0150 NT-Pro-B Natriuret Pep 3700 H Total Protein 7.7 Albumin 3.3 L Globulin 4.4 H Albumin/Globulin Ratio 0.7 L Venous Blood Potassium Urine Color Yellow Urine Clarity Clear Urine pH 5.0 Ur Specific [place] 1.010 Urine Protein Negative Urine Glucose (UA) Normal Urine Ketones Negative Urine Blood Negative Urine Nitrate Negative Urine Bilirubin Negative Urine Urobilinogen Normal Ur Leukocyte Esterase Neg Urine WBC (Auto) 1 Urine RBC (Auto) 1 Ur Squamous Epith Cells 1 Ur Transition Epith Cell < 1 Urine Bacteria Rare Urine Osmolality Ur Random Sodium Hepatitis A IgM Ab Hep Bs Antigen Hep B Core IgM Ab Hepatitis C Antibody HIV 1&2 Antibody Screen Influenza Typ A,B (EIA) 06/16/17 06/16/17 06/16/17 06:34 06:34 07:07 WBC RBC Hgb Hct MCV MCH MCHC RDW Plt Count MPV Neut % (Auto) Lymph % (Auto) [place] % (Auto) Eos % (Auto) Baso % (Auto) Neut # (Auto) Lymph # (Auto) [place] # (Auto) Eos # (Auto) Baso # (Auto) Neutrophils % (Manual) Band Neutrophils % Lymphocytes % (Manual) Monocytes % (Manual) Eosinophils % (Manual) Platelet Estimate Large Platelets Giant Platelets Poikilocytosis (manual Anisocytosis (manual) Ovalocytes Schistocytes PT INR APTT pO2 VBG pH VBG pCO2 VBG HCO3 VBG Total CO2 VBG O2 Sat (Calc) VBG Base Excess VBG Potassium Sodium Chloride Glucose Lactate Potassium Carbon Dioxide Anion Gap BUN Creatinine Est GFR ( Amer) Est GFR (Non-Af Amer) Random Glucose Calcium Total Bilirubin AST ALT Alkaline Phosphatase Troponin I NT-Pro-B Natriuret Pep Total Protein Albumin Globulin Albumin/Globulin Ratio Venous Blood Potassium Urine Color Urine Clarity Urine pH Ur Specific [place] Urine Protein Urine Glucose (UA) Urine Ketones Urine Blood Urine Nitrate Urine Bilirubin Urine Urobilinogen Ur Leukocyte Esterase Urine WBC (Auto) Urine RBC (Auto) Ur Squamous Epith Cells Ur Transition Epith Cell Urine Bacteria Urine Osmolality 634 Ur Random Sodium 45 Hepatitis A IgM Ab Negative Hep Bs Antigen Negative Hep B Core IgM Ab Negative Hepatitis C Antibody Negative HIV 1&2 Antibody Screen Negative Influenza Typ A,B (EIA) Assessment & Plan (1) SOB (shortness of breath) Status: Acute Comment: shortness of breath and fever. Chest x-ray congestive changes. On antibiotics as per infectious disease. Continue nebulizer treatment and add steroids for wheezing. Followup culture and sensitivity. On Lasix (2) Myelodysplasia (myelodysplastic syndrome) Status: Acute
--- NOTE | 2017-06-16 12:18 | CARD ---
APPROVED REPORT EKG Measurement Heart [id number] <Conclusion> Atrial fibrillation with rapid ventricular response Low voltage QRS Nonspecific T wave abnormality Abnormal ECG
--- NOTE | 2017-06-16 12:35 | CP.PCM.PN ---
Subjective - Date & Time of Evaluation Date of Evaluation: 06/16/17 Time of Evaluation: 12:34 - Subjective Subjective: pt is seen and examined, follow up consult is dictated #[id number] r/o siadh will give tolvaptan 15 mg po x1 dose today bmp in am Objective - Vital Signs/Intake and Output Vital Signs (last 24 hours): Temp Pulse Resp BP Pulse Ox 98.9 F 109 H 18 109/59 L 99 06/16/17 08:10 06/16/17 08:10 06/16/17 08:10 06/16/17 10:25 06/16/17 08:10 - Medications Medications: Current Medications Albuterol/Ipratropium (Duoneb 3 Mg/0.5 Mg (3 Ml) Ud) [address] [facility] Last Admin: 06/16/17 05:19 Dose: 3 ml Amlodipine Besylate (Norvasc) [address] [facility] Last Admin: 06/16/17 10:26 Dose: 5 mg Apixaban (Eliquis) 5 mg PO BID [facility] Last Admin: 06/16/17 10:26 Dose: 5 mg Aspirin (Aspirin Chewable) 81 mg PO DAILY [facility] Last Admin: 06/16/17 10:26 Dose: 81 mg Furosemide (Lasix) [address] [facility] Last Admin: 06/16/17 10:25 Dose: 20 mg Cefepime HCl (Maxipime Iv 1 Gm Premix) 1 gm in 50 mls @ 100 mls/hr IVPB Q24H [facility] Last Admin: 06/15/17 19:12 Dose: 100 mls/hr Losartan Potassium (Cozaar) 25 mg PO DAILY [facility] Last Admin: 06/16/17 10:26 Dose: 25 mg Methimazole (Tapazole) [address] [facility] Last Admin: 06/16/17 10:27 Dose: 5 mg Methylprednisolone (Solu-Medrol) [address] [facility] Metoprolol Succinate (Toprol Xl) [address] [facility] Last Admin: 06/16/17 10:26 Dose: 50 mg Multivitamins (Hexavitamin) [address] [facility] Last Admin: 06/16/17 10:26 Dose: 1 tab - Labs Labs: 06/15/17 13:26 06/15/17 13:26 PT 19.3 SECONDS (9.7-12.2) H 06/15/17 13:26 INR 1.7 06/15/17 13:26 APTT 34 SECONDS (21-34) 06/15/17 13:26
[2017-06-16] MEDS: MethylPREDNISolone 40 mg Vial IVP SCH ×2 (15:06→21:26)
[2017-06-16] MEDS: Cefepime IV 1 gm in Dextrose 1 GM/50 ML BAG IVPB SCH (18:35)
[2017-06-16] MEDS ORDERED: Tolvaptan 15 MG TAB PO STA (22:17)
[2017-06-17] MEDS: Albuterol-Ipratrop 3 mg / 0.5 (3 ml) UD INH SCH ×4 (01:13→20:32)
[2017-06-17] MEDS: MethylPREDNISolone 40 mg Vial IVP SCH ×3 (05:51→21:25)
[2017-06-17 07:34] LABS: HEMOGLOBIN 9.1 g/dL (11.0-16.0); MEAN CELL VOLUME 84.7 fL (81.0-99.0); MEAN CORPUSCULAR HEMOGLOBIN 29.4 pg (27.0-31.0); MEAN CORPUSCULAR HGB CONC 34.8 g/dL (33.0-37.0); RBC 3.09 Mil/uL (3.80-5.20); RED CELL DISTRIBUTION WIDTH 16.6 % (11.5-14.5)
[2017-06-17 08:33] LABS: BLOOD UREA NITROGEN 13 mg/dL (7-17); CALCIUM 8.4 mg/dl (8.6-10.4); GFR AFRICAN-AMERICAN > 60; GFR NON-AFRICAN AMERICAN > 60
[2017-06-17 08:57] LABS: MAGNESIUM 2.1 mg/dL (1.6-2.3)
--- NOTE | 2017-06-17 09:25 | CP.PCM.PN ---
Subjective - Date & Time of Evaluation Date of Evaluation: 06/17/17 Time of Evaluation: 08:45 - Subjective Subjective: Pt feels well exc mild weakness. (+) danish dec cough w/ no mucus. Appetite is much better. Want to go home No diarrhea, no n/v, no dysuria, (+ freq Objective - Vital Signs/Intake and Output Vital Signs (last 24 hours): Temp Pulse Resp BP Pulse Ox 97.3 F L 101 H 18 96/62 L 97 06/17/17 07:15 06/17/17 07:15 06/17/17 07:15 06/17/17 07:15 06/17/17 07:15 - Medications Medications: Current Medications Albuterol/Ipratropium (Duoneb 3 Mg/0.5 Mg (3 Ml) Ud) 3 ml INH RQ6 [facility] Last Admin: 06/17/17 07:38 Dose: 3 ml Amlodipine Besylate (Norvasc) 5 mg PO DAILY [facility] Last Admin: 06/16/17 10:26 Dose: 5 mg Apixaban (Eliquis) 5 mg PO BID [facility] Last Admin: 06/16/17 18:04 Dose: 5 mg Aspirin (Aspirin Chewable) 81 mg PO DAILY [facility] Last Admin: 06/16/17 10:26 Dose: 81 mg Furosemide (Lasix) 20 mg IVP DAILY [facility] Last Admin: 06/16/17 10:25 Dose: 20 mg Cefepime HCl (Maxipime Iv 1 Gm Premix) 1 gm in 50 mls @ 100 mls/hr IVPB Q24H [facility] Last Admin: 06/16/17 18:35 Dose: 100 mls/hr Losartan Potassium (Cozaar) 25 mg PO DAILY [facility] Last Admin: 06/16/17 10:26 Dose: 25 mg Methimazole (Tapazole) 5 mg PO DAILY [facility] Last Admin: 06/16/17 10:27 Dose: 5 mg Methylprednisolone (Solu-Medrol) 40 mg IVP Q8 [facility] Last Admin: 06/17/17 05:51 Dose: 40 mg Metoprolol Succinate (Toprol Xl) 50 mg PO BID [facility] Last Admin: 06/16/17 18:04 Dose: 50 mg Multivitamins (Hexavitamin) 1 tab PO DAILY [facility] Last Admin: 06/16/17 10:26 Dose: 1 tab Pneumococcal Polyvalent Vaccine (Pneumovax 23 Vaccine) 0.5 ml IM .ONCE ONE Stop: 06/17/17 10:01 Potassium Chloride (K-Dur 20 Meq Er Tab) 40 meq PO ONCE ONE Stop: 06/17/17 10:01 - Labs Labs: 06/17/17 07:10 06/17/17 07:10 PT 19.3 SECONDS (9.7-12.2) H 06/15/17 13:26 INR 1.7 06/15/17 13:26 APTT 34 SECONDS (21-34) 06/15/17 13:26 - Constitutional Appears: No Acute Distress - Eye Exam Eye Exam: Normal appearance - ENT Exam ENT Exam: Mucous Membranes Moist - Neck Exam Neck Exam: Full ROM - Respiratory Exam Respiratory Exam: Decreased Breath Sounds, Rales. absent: Rhonchi, Wheezes - Cardiovascular Exam Cardiovascular Exam: REGULAR RHYTHM, +S1, +S2. absent: Gallop, JVD, Murmur - GI/Abdominal Exam GI & Abdominal Exam: Soft. absent: Tenderness, Mass - Extremities Exam Extremities Exam: Full ROM, Normal Capillary Refill. absent: Calf Tenderness, Joint Swelling, Pedal Edema Assessment and Plan - Assessment and Plan (Free Text) Assessment: CAD , CHF Recent Pneumonoia and C diff infection MDS Cont meds/ supportive care for Subacute
--- NOTE | 2017-06-17 09:42 | CP.PCM.PN ---
Subjective - Date & Time of Evaluation Date of Evaluation: 06/17/17 Time of Evaluation: 09:41 - Subjective Subjective: pt is seen and examined, follow up consult is dictated #[id number] agree with k+ supplement serum na is slightly better restrict fluids to 1 lit/day Objective - Vital Signs/Intake and Output Vital Signs (last 24 hours): Temp Pulse Resp BP Pulse Ox 97.3 F L 101 H 18 96/62 L 97 06/17/17 07:15 06/17/17 07:15 06/17/17 07:15 06/17/17 07:15 06/17/17 07:15 - Medications Medications: Current Medications Albuterol/Ipratropium (Duoneb 3 Mg/0.5 Mg (3 Ml) Ud) 3 ml INH RQ6 [facility] Last Admin: 06/17/17 07:38 Dose: 3 ml Amlodipine Besylate (Norvasc) 5 mg PO DAILY [facility] Last Admin: 06/16/17 10:26 Dose: 5 mg Apixaban (Eliquis) 5 mg PO BID [facility] Last Admin: 06/16/17 18:04 Dose: 5 mg Aspirin (Aspirin Chewable) 81 mg PO DAILY [facility] Last Admin: 06/16/17 10:26 Dose: 81 mg Furosemide (Lasix) 20 mg IVP DAILY [facility] Last Admin: 06/16/17 10:25 Dose: 20 mg Cefepime HCl (Maxipime Iv 1 Gm Premix) 1 gm in 50 mls @ 100 mls/hr IVPB Q24H [facility] Last Admin: 06/16/17 18:35 Dose: 100 mls/hr Losartan Potassium (Cozaar) 25 mg PO DAILY [facility] Last Admin: 06/16/17 10:26 Dose: 25 mg Methimazole (Tapazole) 5 mg PO DAILY [facility] Last Admin: 06/16/17 10:27 Dose: 5 mg Methylprednisolone (Solu-Medrol) 40 mg IVP Q8 [facility] Last Admin: 06/17/17 05:51 Dose: 40 mg Metoprolol Succinate (Toprol Xl) 50 mg PO BID [facility] Last Admin: 06/16/17 18:04 Dose: 50 mg Multivitamins (Hexavitamin) 1 tab PO DAILY [facility] Last Admin: 06/16/17 10:26 Dose: 1 tab Pneumococcal Polyvalent Vaccine (Pneumovax 23 Vaccine) 0.5 ml IM .ONCE ONE Stop: 06/17/17 10:01 Potassium Chloride (K-Dur 20 Meq Er Tab) 40 meq PO ONCE ONE Stop: 06/17/17 10:01 - Labs Labs: 06/17/17 07:10 06/17/17 07:10 PT 19.3 SECONDS (9.7-12.2) H 06/15/17 13:26 INR 1.7 06/15/17 13:26 APTT 34 SECONDS (21-34) 06/15/17 13:26
[2017-06-17] MEDS: methIMAzole 5 MG TAB PO SCH (09:48)
[2017-06-17] MEDS: Multiple Vitamins Tab PO SCH (09:48)
--- NOTE | 2017-06-17 09:51 | PN ---
DATE: RENAL FOLLOWUP LOCATION: Room 658, bed B. REQUESTING: Dr. Lina Sosa and also Dr. Deion Marie. REASON FOR EVALUATION: Followup of hyponatremia and rule out SIADH. SUBJECTIVE: Mrs. 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 The patient was given 1 dose of tolvaptan 15 mg and serum sodium corrected . Subsequently, the patient was transferred to [facility] (Former[facility]) for cardiac cath, status post cardiac cath in [facility] revealed a humongous RCA with large thrombus in the distal RCA and no angioplasty balloon or stent is being enough to open the obstructing thrombolysis. A decision was made as per Hari Skinner's recommendation to treat the patient medically with antiplatelet and anticoagulation. The patient was discharged home apparently on 06/15/2017 and the patient was brought to the hospital a few hours later with acute shortness of breath, which prompted the patient's daughter to bring the patient back to the emergency room. Renal followup is requested for evaluation of the hyponatremia. The patient is not in acute distress, complains of mild shortness of breath. Denies any chest pain, palpitation. Denies any fever. Denies any cough. No nausea, vomiting, diarrhea. The patient is slightly anxious. PAST MEDICAL HISTORY: Significant for myelodysplastic syndrome, anemia, multiple transfusions, thrombocytopenia, rule out SIADH, pulmonary embolism, paroxysmal AFib, RCA thrombus. ALLERGIES: NO KNOWN DRUG ALLERGIES. PAST SURGICAL HISTORY: Status post cardiac cath last week. CURRENT MEDICATIONS: Include as follows; aspirin 81 mg daily, losartan 25 mg p.o. daily, DuoNeb inhaler, Eliquis 5 mg p.o. b.i.d., multivitamin 1 tablet daily, Lasix 20 mg IV daily, cefepime 1 gm q.24 hours, Norvasc 5 mg daily, pneumococcal vaccine, prednisone 40 mg IV q. 8 hours and Tapazole 5 mg p.o. daily and metoprolol 50 mg p.o. b.i.d. PHYSICAL EXAMINATION: GENERAL: Mrs. Espino is a 77 years elderly female, moderately built, moderately nourished, not in acute distress. VITAL SIGNS: Blood pressure 109/62, pulse 107, respirations 18, temperature 98.1, saturation 98%. Height 5 feet 2 inches and weight is 124 pounds, BMI 22.7. HEENT: Pupils normal, reactive to light and accommodation. Conjunctivae pink. Sclerae anicteric. Tongue is moist. Trachea is midline. LUNGS: Symmetric on both sides. Bilateral breath sounds present. Bilateral basal crackles present. CVS: [place] at the fifth intercostal space, midclavicular line. S1 and S2 audible. No murmur, gallop. ABDOMEN: Normal in appearance, soft, tympanic. No guarding. No hepatosplenomegaly. 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 Nonfocal neuro examination. Cranial nerves II through XII grossly intact. Sensory and motor system is within normal limits. EXTREMITIES: No cyanosis, no clubbing, no edema. LABORATORY DATA: Lab data as follows as of 06/15/2017; WBC 6.3, hemoglobin 10.1, hematocrit is 29.4, platelets 398 and neutrophils 68, bands 17, lymphs 11, monos 2, eosinophils 2. PT 19.3, PTT 34, INR 1.7. ABG; pH 7.48, pO2 21, and pCO2 43, bicarb 29, saturation 42.9. Lactic acid 1.4. Sodium is 126, potassium 4.8, chloride 90, CO2 31, BUN 11, creatinine 0.4, glucose 98, calcium 8.2. Total bili 2.4. AST 48, ALT 11, alkaline phosphatase 130, troponin 0.015 and proBNP 3700, total protein 7.7, albumin is -3.3. Urine is yellow clear, pH 5, specific gravity 1.010. Protein negative, glucose negative, ketones negative, blood negative, nitrites negative, bilirubin negative, urobilinogen normal, leukocyte esterase negative, wbc 1, rbc 1, bacteria rare and urine osmolality is 634 and urine sodium is 45. Hepatitis B surface antigen negative, hepatitis B core antibody IgM negative, hepatitis C antibody is negative. HIV 1 and 2 antibodies negative. Influenza A and B antibody is negative. Hepatitis C antibody IgM is negative. Chest x-ray as of 06/15/2017 mild central pulmonary vascular congestion with bilateral effusions and bibasilar atelectasis, cardiomegaly. ASSESSMENT: Mrs. Diana Espino is a 77 years elderly Pakistani female with a past medical history significant for hypertension, myelodysplastic syndrome, anemia, status post multiple transfusions, pneumonia, hyperthyroidism, status post cardiac cath last week consistent with humongous right coronary artery with large distal thrombus right coronary artery unable to do any stenting angioplasty recommending medical management by Hari Skinner as per Dr. Sosa's consultation with low serum sodium. 1. Hyponatremia. Cannot rule out syndrome of inappropriate (excretion) of antidiuretic hormone. PLAN: 1. Restrict fluids to 1 L per day and consider high-protein diet and also we will give tolvaptan 15 mg p.o. x1 dose tonight and repeat BMP in a.m. 2. Hypertension. Blood pressure is stable. Continue her current medications. 3. Status post PE, continue anticoagulation. 4. RCA thrombus, continue anticoagulation again as per cardiology. We will follow with you. Thank you for allowing me to participate in your patient's care. Rehan Dos Santos MD
[2017-06-17] MEDS ORDERED: Potassium Chloride 20 mEq ER Tab PO ONE (10:00)
[2017-06-17] MEDS ORDERED: Influenza Vaccine 60 mcg/0.5 mL SYR (4YR UP) IM ONE (10:00)
[2017-06-17] MEDS ORDERED: Pneumococcal 23-Valent Vaccine IM ONE (10:00)
[2017-06-17] MEDS: Metoprolol Succinate 50 mg XL Tab PO SCH ×2 (10:20→17:23)
--- NOTE | 2017-06-17 17:46 | CP.PCM.PN ---
Subjective - Date & Time of Evaluation Date of Evaluation: 06/17/17 Time of Evaluation: 14:40 - Subjective Subjective: Patient was seen and examined at the bedside. Patient feels better but reports a decrease in her cough with no sputum production. Her breathing has improved and she does not report any chest pain, shortness of breath, chills, nausea, or vomiting. She has been tolerating the medications and her diet. Objective - Vital Signs/Intake and Output Vital Signs (last 24 hours): Temp Pulse Resp BP Pulse Ox 97.2 F L 94 H 18 91/56 L 98 06/17/17 15:16 06/17/17 17:22 06/17/17 15:16 06/17/17 17:22 06/17/17 15:16 Intake and Output: 06/17/17 06/17/17 06:59 18:59 Intake Total 300 Balance 300 - Medications Medications: Current Medications Albuterol/Ipratropium (Duoneb 3 Mg/0.5 Mg (3 Ml) Ud) 3 ml INH RQ6 [facility] Last Admin: 06/17/17 13:47 Dose: 3 ml Amlodipine Besylate (Norvasc) 5 mg PO DAILY [facility] Last Admin: 06/17/17 10:20 Dose: Not Given Apixaban (Eliquis) 5 mg PO BID [facility] Last Admin: 06/17/17 17:23 Dose: 5 mg Aspirin (Aspirin Chewable) 81 mg PO DAILY [facility] Last Admin: 06/17/17 09:48 Dose: 81 mg Furosemide (Lasix) 20 mg IVP DAILY [facility] Last Admin: 06/17/17 10:19 Dose: Not Given Cefepime HCl (Maxipime Iv 1 Gm Premix) 1 gm in 50 mls @ 100 mls/hr IVPB Q24H [facility] Last Admin: 06/16/17 18:35 Dose: 100 mls/hr Losartan Potassium (Cozaar) 25 mg PO DAILY [facility] Last Admin: 06/17/17 10:19 Dose: Not Given Methimazole (Tapazole) 5 mg PO DAILY [facility] Last Admin: 06/17/17 09:48 Dose: 5 mg Methylprednisolone (Solu-Medrol) 40 mg IVP Q8 [facility] Last Admin: 06/17/17 13:43 Dose: 40 mg Metoprolol Succinate (Toprol Xl) 50 mg PO BID [facility] Last Admin: 06/17/17 17:23 Dose: Not Given Multivitamins (Hexavitamin) 1 tab PO DAILY [facility] Last Admin: 06/17/17 09:48 Dose: 1 tab - Labs Labs: 06/17/17 07:10 06/17/17 07:10 PT 19.3 SECONDS (9.7-12.2) H 06/15/17 13:26 INR 1.7 06/15/17 13:26 APTT 34 SECONDS (21-34) 06/15/17 13:26 - Head Exam Head Exam: ATRAUMATIC, NORMOCEPHALIC - ENT Exam ENT Exam: Mucous Membranes Moist - Neck Exam Neck Exam: Normal Inspection - Respiratory Exam Respiratory Exam: Rales - Cardiovascular Exam Cardiovascular Exam: REGULAR RHYTHM Assessment and Plan (1) SOB (shortness of breath) Assessment & Plan: shortness of breath is secondary to COPD, CHF. and possible pneumonia check pro- calcitonin level Afebrile, Continue antibiotics as per Infectious disease. Continue nebulizer treatments and steroids. Continue lasix as needed. Status: Acute (2) Myelodysplasia (myelodysplastic syndrome) Status: Acute
[2017-06-17] MEDS: Cefepime IV 1 gm in Dextrose 1 GM/50 ML BAG IVPB SCH (19:03)
--- NOTE | 2017-06-17 22:11 | CP.PCM.PN ---
Subjective - Date & Time of Evaluation Date of Evaluation: 06/16/17 Time of Evaluation: 08:20 - Subjective Subjective: patient improving with Abtx, lasix and nebulizer tx Cont asa, eliquist Objective - Vital Signs/Intake and Output Vital Signs (last 24 hours): Temp Pulse Resp BP Pulse Ox 97.2 F L 97 H 18 91/56 L 98 06/17/17 15:16 06/17/17 20:37 06/17/17 15:16 06/17/17 17:22 06/17/17 15:16 Intake and Output: 06/17/17 06/18/17 18:59 06:59 Intake Total 300 Balance 300 - Medications Medications: Current Medications Albuterol/Ipratropium (Duoneb 3 Mg/0.5 Mg (3 Ml) Ud) 3 ml INH RQ6 [facility] Last Admin: 06/17/17 20:32 Dose: 3 ml Amlodipine Besylate (Norvasc) 5 mg PO DAILY [facility] Apixaban (Eliquis) 5 mg PO BID [facility] Last Admin: 06/17/17 17:23 Dose: 5 mg Aspirin (Aspirin Chewable) 81 mg PO DAILY [facility] Last Admin: 06/17/17 09:48 Dose: 81 mg Furosemide (Lasix) 20 mg IVP DAILY [facility] Last Admin: 06/17/17 10:19 Dose: Not Given Cefepime HCl (Maxipime Iv 1 Gm Premix) 1 gm in 50 mls @ 100 mls/hr IVPB Q24H [facility] Last Admin: 06/17/17 19:03 Dose: 100 mls/hr Losartan Potassium (Cozaar) 25 mg PO DAILY [facility] Methimazole (Tapazole) 5 mg PO DAILY [facility] Last Admin: 06/17/17 09:48 Dose: 5 mg Methylprednisolone (Solu-Medrol) 40 mg IVP Q8 [facility] Last Admin: 06/17/17 21:25 Dose: 40 mg Metoprolol Succinate (Toprol Xl) 50 mg PO BID [facility] Multivitamins (Hexavitamin) 1 tab PO DAILY [facility] Last Admin: 06/17/17 09:48 Dose: 1 tab - Labs Labs: 06/17/17 07:10 06/17/17 07:10 PT 19.3 SECONDS (9.7-12.2) H 06/15/17 13:26 INR 1.7 06/15/17 13:26 APTT 34 SECONDS (21-34) 06/15/17 13:26 - Constitutional Appears: Non-toxic - Head Exam Head Exam: NORMAL INSPECTION - Eye Exam Eye Exam: absent: Scleral icterus - ENT Exam ENT Exam: Mucous Membranes Moist - Neck Exam Neck Exam: Full ROM - Respiratory Exam Respiratory Exam: Decreased Breath Sounds, Rales - Cardiovascular Exam Cardiovascular Exam: Irregular Rhythm, REGULAR RHYTHM - GI/Abdominal Exam GI & Abdominal Exam: Soft. absent: Tenderness - Extremities Exam Extremities Exam: absent: Pedal Edema - Neurological Exam Neurological Exam: Alert, Oriented x3 Assessment and Plan - Assessment and Plan (Free Text) Assessment: CHF ACS r/o Sepsis Afib Plan: Cont meds Monitor CBC, lytes
--- NOTE | 2017-06-17 22:20 | CP.PCM.PN ---
Subjective - Date & Time of Evaluation Date of Evaluation: 06/17/17 Time of Evaluation: 09:10 - Subjective Subjective: cont to improve weak NAD no chest pain Objective - Vital Signs/Intake and Output Vital Signs (last 24 hours): Temp Pulse Resp BP Pulse Ox 97.2 F L 97 H 18 91/56 L 98 06/17/17 15:16 06/17/17 20:37 06/17/17 15:16 06/17/17 17:22 06/17/17 15:16 Intake and Output: 06/17/17 06/18/17 18:59 06:59 Intake Total 300 Balance 300 - Medications Medications: Current Medications Albuterol/Ipratropium (Duoneb 3 Mg/0.5 Mg (3 Ml) Ud) 3 ml INH RQ6 [facility] Last Admin: 06/17/17 20:32 Dose: 3 ml Amlodipine Besylate (Norvasc) 5 mg PO DAILY [facility] Apixaban (Eliquis) 5 mg PO BID [facility] Last Admin: 06/17/17 17:23 Dose: 5 mg Aspirin (Aspirin Chewable) 81 mg PO DAILY [facility] Last Admin: 06/17/17 09:48 Dose: 81 mg Furosemide (Lasix) 20 mg IVP DAILY [facility] Last Admin: 06/17/17 10:19 Dose: Not Given Cefepime HCl (Maxipime Iv 1 Gm Premix) 1 gm in 50 mls @ 100 mls/hr IVPB Q24H [facility] Last Admin: 06/17/17 19:03 Dose: 100 mls/hr Losartan Potassium (Cozaar) 25 mg PO DAILY [facility] Methimazole (Tapazole) 5 mg PO DAILY [facility] Last Admin: 06/17/17 09:48 Dose: 5 mg Methylprednisolone (Solu-Medrol) 40 mg IVP Q8 [facility] Last Admin: 06/17/17 21:25 Dose: 40 mg Metoprolol Succinate (Toprol Xl) 50 mg PO BID [facility] Multivitamins (Hexavitamin) 1 tab PO DAILY [facility] Last Admin: 06/17/17 09:48 Dose: 1 tab - Labs Labs: 06/17/17 07:10 06/17/17 07:10 PT 19.3 SECONDS (9.7-12.2) H 06/15/17 13:26 INR 1.7 06/15/17 13:26 APTT 34 SECONDS (21-34) 06/15/17 13:26 - Constitutional Appears: Non-toxic - Head Exam Head Exam: NORMAL INSPECTION - Eye Exam Eye Exam: Scleral icterus - ENT Exam ENT Exam: Mucous Membranes Moist - Neck Exam Neck Exam: Full ROM - Respiratory Exam Respiratory Exam: Rales - Cardiovascular Exam Cardiovascular Exam: Irregular Rhythm - GI/Abdominal Exam GI & Abdominal Exam: Soft - Extremities Exam Extremities Exam: absent: Calf Tenderness - Neurological Exam Neurological Exam: Alert, Oriented x3 Assessment and Plan - Assessment and Plan (Free Text) Assessment: CHF UTI MDS Chronic Afib CAD Chronic hyponatremia Plan: Cont abtx, AC, bronchodilators
[2017-06-18] MEDS: Albuterol-Ipratrop 3 mg / 0.5 (3 ml) UD INH SCH ×4 (01:13→19:05)
[2017-06-18] MEDS: MethylPREDNISolone 40 mg Vial IVP SCH ×3 (05:27→22:17)
[2017-06-18 07:30] LABS: BLOOD UREA NITROGEN 22 mg/dL (7-17); CALCIUM 8.7 mg/dl (8.6-10.4); GFR AFRICAN-AMERICAN > 60; GFR NON-AFRICAN AMERICAN > 60
--- NOTE | 2017-06-18 08:24 | CP.PCM.PN ---
Subjective - Date & Time of Evaluation Date of Evaluation: 06/18/17 Time of Evaluation: 08:10 - Subjective Subjective: Pt feels strong to go home; had 5 diarrhea last night. No blood in stool. No fever, no CP, no SOB, (+) dry cough No n/v, feels no appetite this AM Objective - Vital Signs/Intake and Output Vital Signs (last 24 hours): Temp Pulse Resp BP Pulse Ox 97.3 F L 144 H 20 101/67 98 06/17/17 23:30 06/18/17 04:00 06/17/17 23:30 06/17/17 23:30 06/17/17 23:30 Intake and Output: 06/18/17 06/18/17 06:59 18:59 Intake Total 450 Balance 450 - Medications Medications: Current Medications Albuterol/Ipratropium (Duoneb 3 Mg/0.5 Mg (3 Ml) Ud) 3 ml INH RQ6 [facility] Last Admin: 06/18/17 07:04 Dose: 3 ml Amlodipine Besylate (Norvasc) 5 mg PO DAILY [facility] Apixaban (Eliquis) 5 mg PO BID [facility] Last Admin: 06/17/17 17:23 Dose: 5 mg Aspirin (Aspirin Chewable) 81 mg PO DAILY [facility] Last Admin: 06/17/17 09:48 Dose: 81 mg Furosemide (Lasix) 20 mg IVP DAILY [facility] Last Admin: 06/17/17 10:19 Dose: Not Given Cefepime HCl (Maxipime Iv 1 Gm Premix) 1 gm in 50 mls @ 100 mls/hr IVPB Q24H [facility] Last Admin: 06/17/17 19:03 Dose: 100 mls/hr Losartan Potassium (Cozaar) 25 mg PO DAILY [facility] Methimazole (Tapazole) 5 mg PO DAILY [facility] Last Admin: 06/17/17 09:48 Dose: 5 mg Methylprednisolone (Solu-Medrol) 40 mg IVP Q8 [facility] Last Admin: 06/18/17 05:27 Dose: 40 mg Metoprolol Succinate (Toprol Xl) 50 mg PO BID [facility] Multivitamins (Hexavitamin) 1 tab PO DAILY [facility] Last Admin: 06/17/17 09:48 Dose: 1 tab - Labs Labs: 06/17/17 07:10 06/18/17 06:59 PT 19.3 SECONDS (9.7-12.2) H 06/15/17 13:26 INR 1.7 06/15/17 13:26 APTT 34 SECONDS (21-34) 06/15/17 13:26 - Constitutional Appears: No Acute Distress - Eye Exam Eye Exam: Normal appearance - ENT Exam ENT Exam: Mucous Membranes Moist, Normal Oropharynx ((+) pale) - Neck Exam Neck Exam: Full ROM - Respiratory Exam Respiratory Exam: Decreased Breath Sounds, Rhonchi. absent: Rales, Wheezes - Cardiovascular Exam Cardiovascular Exam: REGULAR RHYTHM, +S1, +S2, Murmur. absent: Gallop, JVD - GI/Abdominal Exam GI & Abdominal Exam: Soft. absent: Tenderness, Mass - Extremities Exam Extremities Exam: Full ROM, Joint Swelling. absent: Calf Tenderness, Pedal Edema Assessment and Plan - Assessment and Plan (Free Text) Plan: Ac CHF; Diarrhea Recent PE & C diff infection COPD, exac; Hyponatremia; Myelodysplastic syndrome Recheck stool for C diff Cont meds/ supportive care
--- NOTE | 2017-06-18 08:36 | PN ---
DATE: 06/17/2017 LOCATION: Room 658, bed B. REQUESTED BY: Dr. Deion Marie. REASON FOR FOLLOWUP: Hyponatremia and for further evaluation. SUBJECTIVE: Mrs. Espino is a 77 years old elderly [place] female with a past medical history significant for hypertension, myelodysplastic syndrome, pulmonary embolism, AFib status post cardiac cath with humongous RCA with thrombus in the RCA unable to do thrombectomy or angioplasty recommending medical management. The patient was brought to the [facility] ([facility]] after discharge from the medical center within few hours with shortness of breath and the patient was found to have hyponatremia. The patient was given tolvaptan 15 mg last night and her serum sodium improved slightly this morning to 130. The patient is feeling better, not in acute distress. On fluid restriction 1 liter per day. Denies any chest pain or palpitation. Denies any fever or cough. Less shortness of breath this morning. PHYSICAL EXAMINATION: VITAL SIGNS: This morning as follows; blood pressure 96/62, pulse 101, respirations 18, temperature 97.3, saturation 97%. Height 5 feet 2 inches and weight is 128 pounds. GENERAL: Mrs. Diana Espino is 77 years old elderly [place] female, moderately built, moderately nourished, not in distress. HEENT: Pupils normal, reactive to light and accommodation. Conjunctivae pink. Sclerae anicteric. Tongue is moist. Trachea is midline. LUNGS: Symmetric on both sides. Bilateral breath sounds present. Bilateral basal crackles present. CVS: [place] at the fifth intercostal space, midclavicular line. S1 and S2 audible. No murmur or gallop. ABDOMEN: Normal in appearance, soft, tympanic. No guarding, no rigidity. No hepatosplenomegaly. 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 Nonfocal neuro examination. Cranial nerves II through XII grossly intact. Sensory and motor system is within normal limits. EXTREMITIES: No cyanosis, no clubbing, no edema. CURRENT MEDICATIONS: Include as follows; aspirin 81 mg daily, losartan 25 mg p.o. daily, DuoNeb inhaler q. 6 hours, Eliquis 5 mg p.o. b.i.d., multivitamin 1 tablet daily, Lasix 20 mg IV daily, cefepime 1 gm q. 24 hours, amlodipine 5 mg p.o. daily, prednisone 40 mg IV q. 8 hours, Tapazole 5 mg daily, metoprolol 50 mg p.o. b.i.d.. LABORATORY DATA: Include as follows as of 06/17/2017; WBC 6.0, hemoglobin 9.1, hematocrit is 26.2, platelets 425. Sodium is 130, potassium 3.1, chloride 92, CO2 31, BUN 13, creatinine 0.5, glucose 133, calcium 8.4 and magnesium 2.1. ASSESSMENT: In summary, Mrs. Espino is a 77 years old elderly [place] female with a history of hypertension, myelodysplastic syndrome, atrial fibrillation, pulmonary embolism, thrombus in the right coronary artery unable to do angioplasty with hyponatremia and bilateral effusions and bibasilar atelectasis, mild central pulmonary vascular congestion. 1. Hyponatremia. Cannot rule out syndrome of inappropriate antidiuretic hormone (secretion) versus thyroid disorder. 2. Hypertension. 3. Status post pulmonary embolism. 4. Right coronary artery had thrombus. PLAN: Continue anticoagulation as per Cardiology recommendation and continue to monitor sodium in a.m. and hold blood pressure medicine for systolic blood pressure less than 130 and for the heart rate less than 50. We will follow with you. Continue antibiotics as per ID recommendations for possible bibasilar atelectasis and bilateral effusion, rule out pneumonia. Overall prognosis is guarded. Continue restrict fluids to 1 L per day. Thank you for allowing me to participate in your patient's care. Rehan Dos Santos MD
[2017-06-18] MEDS: Multiple Vitamins Tab PO SCH (10:19)
[2017-06-18] MEDS: methIMAzole 5 MG TAB PO SCH (10:19)
[2017-06-18] MEDS: Metoprolol Succinate 50 mg XL Tab PO SCH ×2 (10:21→18:24)
--- NOTE | 2017-06-18 10:48 | CP.PCM.PN ---
Subjective - Date & Time of Evaluation Date of Evaluation: 06/18/17 Time of Evaluation: 10:48 - Subjective Subjective: pt is seen and examined, follow up consult is dictated #[id number] Objective - Vital Signs/Intake and Output Vital Signs (last 24 hours): Temp Pulse Resp BP Pulse Ox 97.5 F L 94 H 20 99/65 L 98 06/18/17 08:34 06/18/17 08:34 06/18/17 08:34 06/18/17 10:20 06/18/17 08:34 Intake and Output: 06/18/17 06/18/17 06:59 18:59 Intake Total 450 Balance 450 - Medications Medications: Current Medications Albuterol/Ipratropium (Duoneb 3 Mg/0.5 Mg (3 Ml) Ud) 3 ml INH RQ6 [facility] Last Admin: 06/18/17 07:04 Dose: 3 ml Amlodipine Besylate (Norvasc) 5 mg PO DAILY [facility] Last Admin: 06/18/17 10:21 Dose: Not Given Apixaban (Eliquis) 5 mg PO BID [facility] Last Admin: 06/18/17 10:19 Dose: 5 mg Aspirin (Aspirin Chewable) 81 mg PO DAILY [facility] Last Admin: 06/18/17 10:19 Dose: 81 mg Furosemide (Lasix) 20 mg IVP DAILY [facility] Last Admin: 06/18/17 10:20 Dose: Not Given Cefepime HCl (Maxipime Iv 1 Gm Premix) 1 gm in 50 mls @ 100 mls/hr IVPB Q24H [facility] Last Admin: 06/17/17 19:03 Dose: 100 mls/hr Losartan Potassium (Cozaar) 25 mg PO DAILY [facility] Last Admin: 06/18/17 10:19 Dose: Not Given Methimazole (Tapazole) 5 mg PO DAILY [facility] Last Admin: 06/18/17 10:19 Dose: 5 mg Methylprednisolone (Solu-Medrol) 40 mg IVP Q8 [facility] Last Admin: 06/18/17 05:27 Dose: 40 mg Metoprolol Succinate (Toprol Xl) 50 mg PO BID [facility] Last Admin: 06/18/17 10:21 Dose: Not Given Multivitamins (Hexavitamin) 1 tab PO DAILY [facility] Last Admin: 06/18/17 10:19 Dose: 1 tab - Labs Labs: 06/17/17 07:10 02/07/18 06:59 PT 19.3 SECONDS (9.7-12.2) H 06/15/17 13:26 INR 1.7 06/15/17 13:26 APTT 34 SECONDS (21-34) 06/15/17 13:26
--- NOTE | 2017-06-18 15:42 | CP.PCM.PN ---
Subjective - Date & Time of Evaluation Date of Evaluation: 06/18/17 Time of Evaluation: 15:25 - Subjective Subjective: patient seen and examined Shortness of breath much improved Wants to go home Afebrile No chest pain Objective - Vital Signs/Intake and Output Vital Signs (last 24 hours): Temp Pulse Resp BP Pulse Ox 97.5 F L 121 H 20 99/65 L 98 06/18/17 08:34 06/18/17 12:25 06/18/17 08:34 06/18/17 10:20 06/18/17 08:34 Intake and Output: 06/18/17 06/18/17 06:59 18:59 Intake Total 450 400 Balance 450 400 - Medications Medications: Current Medications Albuterol/Ipratropium (Duoneb 3 Mg/0.5 Mg (3 Ml) Ud) 3 ml INH RQ6 [facility] Last Admin: 06/18/17 13:00 Dose: 3 ml Amlodipine Besylate (Norvasc) 5 mg PO DAILY [facility] Last Admin: 06/18/17 10:21 Dose: Not Given Apixaban (Eliquis) 5 mg PO BID [facility] Last Admin: 06/18/17 10:19 Dose: 5 mg Aspirin (Aspirin Chewable) 81 mg PO DAILY [facility] Last Admin: 06/18/17 10:19 Dose: 81 mg Furosemide (Lasix) 20 mg IVP DAILY [facility] Last Admin: 06/18/17 10:20 Dose: Not Given Cefepime HCl (Maxipime Iv 1 Gm Premix) 1 gm in 50 mls @ 100 mls/hr IVPB Q24H [facility] Last Admin: 06/17/17 19:03 Dose: 100 mls/hr Losartan Potassium (Cozaar) 25 mg PO DAILY [facility] Last Admin: 06/18/17 10:19 Dose: Not Given Methimazole (Tapazole) 5 mg PO DAILY [facility] Last Admin: 06/18/17 10:19 Dose: 5 mg Methylprednisolone (Solu-Medrol) 40 mg IVP Q8 [facility] Last Admin: 06/18/17 13:22 Dose: 40 mg Metoprolol Succinate (Toprol Xl) 50 mg PO BID [facility] Last Admin: 06/18/17 10:21 Dose: Not Given Multivitamins (Hexavitamin) 1 tab PO DAILY [facility] Last Admin: 06/18/17 10:19 Dose: 1 tab - Labs Labs: 06/17/17 07:10 06/18/17 06:59 PT 19.3 SECONDS (9.7-12.2) H 06/15/17 13:26 INR 1.7 06/15/17 13:26 APTT 34 SECONDS (21-34) 06/15/17 13:26 - Head Exam Head Exam: ATRAUMATIC, NORMOCEPHALIC - Eye Exam Eye Exam: Normal appearance - ENT Exam ENT Exam: Mucous Membranes Moist - Neck Exam Neck Exam: Normal Inspection - Respiratory Exam Respiratory Exam: Rales - Cardiovascular Exam Cardiovascular Exam: REGULAR RHYTHM - GI/Abdominal Exam GI & Abdominal Exam: Soft, Normal Bowel Sounds Assessment and Plan (1) SOB (shortness of breath) Assessment & Plan: COPD, CHF and possible Bronchitis Discharge home on antibiotics, nebulizer treatment and low-dose prednisone Status: Acute (2) Myelodysplasia (myelodysplastic syndrome) Status: Acute
[2017-06-18] MEDS: Cefepime IV 1 gm in Dextrose 1 GM/50 ML BAG IVPB SCH (19:32)
[2017-06-18] MEDS ORDERED: Vancomycin 125 MG/5 ML SOLN (ORAL/RECTAL) PO STA (22:29)
[2017-06-19] MEDS: Albuterol-Ipratrop 3 mg / 0.5 (3 ml) UD INH SCH ×2 (01:37→14:01)
[2017-06-19] MEDS: MethylPREDNISolone 40 mg Vial IVP SCH ×3 (05:19→21:33)
[2017-06-19 06:42] LABS: BASO % 0.1 % (0.0-2.0); EOS % 0.5 % (0.0-4.0); HEMOGLOBIN 9.2 g/dL (11.0-16.0); LYMPH # 0.8 K/uL (1.0-4.3); LYMPH % 10.6 % (20.0-40.0); MEAN CELL VOLUME 85.7 fL (81.0-99.0); MEAN CORPUSCULAR HEMOGLOBIN 28.7 pg (27.0-31.0); MEAN CORPUSCULAR HGB CONC 33.5 g/dL (33.0-37.0); MEAN PLATELET VOLUME 10.4 fL (7.2-11.7); MONO # 0.2 K/uL (0.0-0.8); MONO % 2.3 % (0.0-10.0); NEUT # 6.4 K/uL (1.8-7.0); NEUT % 86.5 % (50.0-75.0); NRBC % 0.1 % (0.0-2.0); RBC 3.2 Mil/uL (3.80-5.20); RED CELL DISTRIBUTION WIDTH 16.9 % (11.5-14.5); WHITE BLOOD COUNT 7.3 K/uL (4.8-10.8)
--- NOTE | 2017-06-19 07:50 | PN ---
DATE: 06/18/2017 FOLLOWUP RENAL CONSULTATION LOCATION: The patient is located in room 661, bed A. REQUESTED BY: Dr. Deion Marie. REASON FOR FOLLOWUP: Hyponatremia. SUBJECTIVE: Mrs. Espino is a 77-year-old elderly very pleasant [place] female with a history of hypertension, coronary artery disease, PE, atrial fibrillation, history of C. diff colitis, hyponatremia, questionable SIADH, who was admitted multiple times in the last few months, was recently admitted with hyponatremia and was treated with tolvaptan and subsequently transferred to [facility] for cardiac cath, status post cardiac cath and found to have humongous RCA and also distal RCA thrombus and unable to place any stent due to markedly large RCA, no stenting was available, decided to treat medically with anticoagulation. The patient was admitted back to [facility] after discharging from the [facility] few hours later with shortness of breath. The patient is feeling much better now, not in distress. No chest pain. No palpitation. No fever. No cough. No abdominal pain. No nausea, vomiting, or diarrhea. OBJECTIVE: VITAL SIGNS: This morning as follows, blood pressure 105/74, pulse 94, respirations 20, temperature 97.5, and saturation 98%. Height 5 feet 2 inches and weight is 138 pounds. GENERAL: Mrs. Espino is a 77-year-old elderly female, moderately built, moderately nourished, not in distress. HEENT: Pupils are normal, reactive to light and accommodation. Conjunctivae pink. Sclerae anicteric. Tongue is moist and trachea is midline. LUNGS: Symmetric on both sides. Bilateral breath sounds present. Clear on auscultation. CVS: [place] at the fifth intercostal space, midclavicular area. S1 and S2 audible. No murmur or gallop. ABDOMEN: Normal in appearance, soft, tympanitic. No guarding. No rigidity. No hepatosplenomegaly. SHUTTLER CAR: The patient is alert, awake, oriented x3. Nonfocal neuro examination. Cranial nerves II through XII grossly intact. Sensory and motor system is within normal limits. EXTREMITIES: No cyanosis, no clubbing, no edema. CURRENT MEDICATIONS: Include as follows, aspirin 81 mg daily, losartan 25 mg p.o. daily, DuoNeb inhaler, Eliquis 5 mg p.o. b.i.d., multivitamin 1 tablet daily, Lasix 20 mg daily, cefepime 1 gm q.24 hours, Norvasc 5 mg daily, Solu-Medrol 40 mg IV q.8 hours, Tapazole 5 mg p.o. daily, Toprol-XL 50 mg p.o. b.i.d., Tylenol, and vancomycin 250 mg p.o. four times daily. LABORATORY DATA: Include as follows, as of 06/18/2017, sodium 133, potassium 3.6, chloride 96, CO2 , BUN 22, creatinine 0.6, glucose 127, and calcium 8.7. IMPRESSION: In summary, Mrs. Espino is a 77-year-old elderly female with hypertension, atrial fibrillation, pulmonary embolism, myelodysplastic syndrome, anemia, hyponatremia, hyperthyroidism on Tapazole, status post cardiac cath and found to have humongous RCA with a distal thrombus and unable to place any stent or thrombectomy, on anticoagulation, admitted with shortness of breath and hyponatremia. 1. Hyponatremia, rule out syndrome of inappropriate antidiuretic hormone secretion, cannot be ruled out, serum sodium improved to 133 after one dose of tolvaptan two days ago, and continue to restrict fluids 1 liter per day and continue to monitor BMP. 2. Myelodysplastic syndrome. 3. Status post pulmonary embolism, on anticoagulation. 4. Rule out pneumonia. Continue cefepime as per Dr. Hernandez and also vancomycin p.o., repeat BMP in a.m. Thank you for allowing me to participate in your patient's care. Rehan Dos Santos MD
[2017-06-19 08:07] LABS: ALB/GLOB RATIO 0.8 (1.0-2.1); ALBUMIN 2.6 g/dL (3.5-5.0); ALT/SGPT 33 U/L (9-52); AST/SGOT 24 U/L (14-36); BLOOD UREA NITROGEN 27 mg/dL (7-17); CALCIUM 8.9 mg/dl (8.6-10.4); GFR AFRICAN-AMERICAN > 60; GFR NON-AFRICAN AMERICAN > 60
--- NOTE | 2017-06-19 08:23 | CP.PCM.PN ---
Subjective - Date & Time of Evaluation Date of Evaluation: 06/18/17 Time of Evaluation: 09:00 - Subjective Subjective: sob much improved no chest pain Case discussed w/ pulmonary during rounds Objective - Vital Signs/Intake and Output Vital Signs (last 24 hours): Temp Pulse Resp BP Pulse Ox 97.5 F L 109 H 20 116/60 96 06/19/17 07:47 06/19/17 07:47 06/19/17 07:47 06/19/17 07:47 06/19/17 07:47 Intake and Output: 06/19/17 06/19/17 06:59 18:59 Intake Total 670 Output Total 3 Balance 667 - Medications Medications: Current Medications Acetaminophen (Tylenol 325mg Tab) 650 mg PO Q6 PRN PRN Reason: Pain, Mild (1-3) Last Admin: 06/18/17 22:52 Dose: 650 mg Albuterol/Ipratropium (Duoneb 3 Mg/0.5 Mg (3 Ml) Ud) 3 ml INH RQ6 [facility] Last Admin: 06/19/17 01:37 Dose: 3 ml Amlodipine Besylate (Norvasc) 5 mg PO DAILY [facility] Last Admin: 06/18/17 10:21 Dose: Not Given Apixaban (Eliquis) 5 mg PO BID [facility] Last Admin: 06/18/17 18:12 Dose: 5 mg Aspirin (Aspirin Chewable) 81 mg PO DAILY [facility] Last Admin: 06/18/17 10:19 Dose: 81 mg Furosemide (Lasix) 20 mg IVP DAILY [facility] Last Admin: 06/18/17 10:20 Dose: Not Given Losartan Potassium (Cozaar) 25 mg PO DAILY [facility] Last Admin: 06/18/17 10:19 Dose: Not Given Methimazole (Tapazole) 5 mg PO DAILY [facility] Last Admin: 06/18/17 10:19 Dose: 5 mg Methylprednisolone (Solu-Medrol) 40 mg IVP Q8 [facility] Last Admin: 06/19/17 05:19 Dose: 40 mg Metoprolol Succinate (Toprol Xl) 50 mg PO BID [facility] Last Admin: 06/18/17 18:24 Dose: Not Given Multivitamins (Hexavitamin) 1 tab PO DAILY [facility] Last Admin: 06/18/17 10:19 Dose: 1 tab Vancomycin HCl (Vancocin (Oral Or Rectal Use)) 250 mg PO QID [facility] - Labs Labs: 06/19/17 06:23 06/19/17 06:23 PT 19.3 SECONDS (9.7-12.2) H 06/15/17 13:26 INR 1.7 06/15/17 13:26 APTT 34 SECONDS (21-34) 06/15/17 13:26 - Constitutional Appears: Non-toxic - ENT Exam ENT Exam: Mucous Membranes Moist - Neck Exam Neck Exam: Full ROM - Respiratory Exam Respiratory Exam: Decreased Breath Sounds - Cardiovascular Exam Cardiovascular Exam: Irregular Rhythm - GI/Abdominal Exam GI & Abdominal Exam: Soft - Extremities Exam Extremities Exam: absent: Pedal Edema - Neurological Exam Neurological Exam: Alert, Oriented x3 Assessment and Plan - Assessment and Plan (Free Text) Assessment: COPD ACS MDS Afib Hx of PE Plan: Case discussed with daughter Cont Abtx, bronchodilator, steroids, Lasix Blood transfusion prn
[2017-06-19] MEDS: methIMAzole 5 MG TAB PO SCH (09:39)
[2017-06-19] MEDS: Multiple Vitamins Tab PO SCH (09:40)
[2017-06-19] MEDS: Metoprolol Succinate 50 mg XL Tab PO SCH ×2 (09:40→18:01)
[2017-06-19] MEDS: Vancomycin 125 MG/5 ML SOLN (ORAL/RECTAL) PO SCH ×4 (09:40→21:33)
--- NOTE | 2017-06-19 16:57 | CP.PCM.PN ---
Subjective - Date & Time of Evaluation Date of Evaluation: 06/19/17 Time of Evaluation: 08:00 - Subjective Subjective: events noted iv antibiotics d/c'd Objective - Vital Signs/Intake and Output Vital Signs (last 24 hours): Temp Pulse Resp BP Pulse Ox 97.5 F L 91 H 20 99/69 L 99 06/19/17 16:15 06/19/17 16:15 06/19/17 16:15 06/19/17 16:15 06/19/17 16:15 Intake and Output: 06/19/17 06/19/17 06:59 18:59 Intake Total 670 300 Output Total 3 Balance 667 300 - Medications Medications: Current Medications Acetaminophen (Tylenol 325mg Tab) 650 mg PO Q6 PRN PRN Reason: Pain, Mild (1-3) Last Admin: 06/19/17 11:51 Dose: 650 mg Albuterol/Ipratropium (Duoneb 3 Mg/0.5 Mg (3 Ml) Ud) 3 ml INH RQ6 [facility] Last Admin: 06/19/17 14:01 Dose: 3 ml Amlodipine Besylate (Norvasc) 5 mg PO DAILY [facility] Last Admin: 06/19/17 09:40 Dose: Not Given Apixaban (Eliquis) 5 mg PO BID [facility] Last Admin: 06/19/17 09:40 Dose: 5 mg Aspirin (Aspirin Chewable) 81 mg PO DAILY [facility] Last Admin: 06/19/17 09:40 Dose: 81 mg Furosemide (Lasix) 20 mg IVP DAILY [facility] Last Admin: 06/19/17 09:39 Dose: Not Given Losartan Potassium (Cozaar) 25 mg PO DAILY [facility] Last Admin: 06/19/17 09:41 Dose: Not Given Methimazole (Tapazole) 5 mg PO DAILY [facility] Last Admin: 06/19/17 09:39 Dose: 5 mg Methylprednisolone (Solu-Medrol) 40 mg IVP Q8 [facility] Last Admin: 06/19/17 14:14 Dose: 40 mg Metoprolol Succinate (Toprol Xl) 50 mg PO BID [facility] Last Admin: 06/19/17 09:40 Dose: 50 mg Multivitamins (Hexavitamin) 1 tab PO DAILY [facility] Last Admin: 06/19/17 09:40 Dose: 1 tab Vancomycin HCl (Vancocin (Oral Or Rectal Use)) 250 mg PO QID [facility] Last Admin: 06/19/17 14:14 Dose: 250 mg - Labs Labs: 06/19/17 06:23 06/19/17 06:23 PT 19.3 SECONDS (9.7-12.2) H 06/15/17 13:26 INR 1.7 06/15/17 13:26 APTT 34 SECONDS (21-34) 06/15/17 13:26 - Constitutional Appears: Non-toxic, Cachectic, Chronically Ill - Head Exam Head Exam: NORMOCEPHALIC - Eye Exam Eye Exam: PERRL. absent: Scleral icterus - ENT Exam ENT Exam: Mucous Membranes Dry - Neck Exam Neck Exam: absent: Lymphadenopathy - Respiratory Exam Respiratory Exam: Decreased Breath Sounds - Cardiovascular Exam Cardiovascular Exam: REGULAR RHYTHM - GI/Abdominal Exam GI & Abdominal Exam: Distended - Rectal Exam Rectal Exam: Deferred - Exam Exam: NORMAL INSPECTION - Extremities Exam Extremities Exam: absent: Pedal Edema - Back Exam Back Exam: absent: CVA tenderness (L), CVA tenderness (R) Assessment and Plan (1) CHF (congestive heart failure) Status: Acute (2) Rapid atrial fibrillation Status: Acute (3) CAD (coronary artery disease) Status: Acute (4) Cough Status: Acute (5) Dehydration Status: Acute (6) Hyponatremia Status: Acute (7) Lower respiratory infection Status: Acute (8) Myelodysplasia (myelodysplastic syndrome) Status: Acute
--- NOTE | 2017-06-19 17:34 | CP.PCM.PN ---
Subjective - Date & Time of Evaluation Date of Evaluation: 06/19/17 Time of Evaluation: 17:33 - Subjective Subjective: pt is seen and examined, follow up consult is dictated#[id number] Objective - Vital Signs/Intake and Output Vital Signs (last 24 hours): Temp Pulse Resp BP Pulse Ox 97.5 F L 91 H 20 99/69 L 99 06/19/17 16:15 06/19/17 16:15 06/19/17 16:15 06/19/17 16:15 06/19/17 16:15 Intake and Output: 06/19/17 06/19/17 06:59 18:59 Intake Total 670 300 Output Total 3 Balance 667 300 - Medications Medications: Current Medications Acetaminophen (Tylenol 325mg Tab) 650 mg PO Q6 PRN PRN Reason: Pain, Mild (1-3) Last Admin: 06/19/17 11:51 Dose: 650 mg Albuterol/Ipratropium (Duoneb 3 Mg/0.5 Mg (3 Ml) Ud) 3 ml INH RQ6 [facility] Last Admin: 06/19/17 14:01 Dose: 3 ml Amlodipine Besylate (Norvasc) 5 mg PO DAILY [facility] Last Admin: 06/19/17 09:40 Dose: Not Given Apixaban (Eliquis) 5 mg PO BID [facility] Last Admin: 06/19/17 09:40 Dose: 5 mg Aspirin (Aspirin Chewable) 81 mg PO DAILY [facility] Last Admin: 06/19/17 09:40 Dose: 81 mg Furosemide (Lasix) 20 mg IVP DAILY [facility] Last Admin: 06/19/17 09:39 Dose: Not Given Losartan Potassium (Cozaar) 25 mg PO DAILY [facility] Last Admin: 06/19/17 09:41 Dose: Not Given Methimazole (Tapazole) 5 mg PO DAILY [facility] Last Admin: 06/19/17 09:39 Dose: 5 mg Methylprednisolone (Solu-Medrol) 40 mg IVP Q8 [facility] Last Admin: 06/19/17 14:14 Dose: 40 mg Metoprolol Succinate (Toprol Xl) 50 mg PO BID [facility] Last Admin: 06/19/17 09:40 Dose: 50 mg Multivitamins (Hexavitamin) 1 tab PO DAILY [facility] Last Admin: 06/19/17 09:40 Dose: 1 tab Vancomycin HCl (Vancocin (Oral Or Rectal Use)) 250 mg PO QID [facility] Last Admin: 06/19/17 14:14 Dose: 250 mg - Labs Labs: 06/19/17 06:23 06/19/17 06:23 PT 19.3 SECONDS (9.7-12.2) H 06/15/17 13:26 INR 1.7 06/15/17 13:26 APTT 34 SECONDS (21-34) 06/15/17 13:26
--- NOTE | 2017-06-19 17:43 | CP.PCM.PN ---
Subjective - Date & Time of Evaluation Date of Evaluation: 06/19/17 Time of Evaluation: 17:40 - Subjective Subjective: S: Feels better. No fever. Objective - Vital Signs/Intake and Output Vital Signs (last 24 hours): Temp Pulse Resp BP Pulse Ox 97.5 F L 91 H 20 99/69 L 99 06/19/17 16:15 06/19/17 16:15 06/19/17 16:15 06/19/17 16:15 06/19/17 16:15 Intake and Output: 06/19/17 06/19/17 06:59 18:59 Intake Total 670 300 Output Total 3 Balance 667 300 - Medications Medications: Current Medications Acetaminophen (Tylenol 325mg Tab) 650 mg PO Q6 PRN PRN Reason: Pain, Mild (1-3) Last Admin: 06/19/17 11:51 Dose: 650 mg Albuterol/Ipratropium (Duoneb 3 Mg/0.5 Mg (3 Ml) Ud) 3 ml INH RQ6 [facility] Last Admin: 06/19/17 14:01 Dose: 3 ml Amlodipine Besylate (Norvasc) 5 mg PO DAILY [facility] Last Admin: 06/19/17 09:40 Dose: Not Given Apixaban (Eliquis) 5 mg PO BID [facility] Last Admin: 06/19/17 09:40 Dose: 5 mg Aspirin (Aspirin Chewable) 81 mg PO DAILY [facility] Last Admin: 06/19/17 09:40 Dose: 81 mg Furosemide (Lasix) 20 mg IVP DAILY [facility] Last Admin: 06/19/17 09:39 Dose: Not Given Losartan Potassium (Cozaar) 25 mg PO DAILY [facility] Last Admin: 06/19/17 09:41 Dose: Not Given Methimazole (Tapazole) 5 mg PO DAILY [facility] Last Admin: 06/19/17 09:39 Dose: 5 mg Methylprednisolone (Solu-Medrol) 40 mg IVP Q8 [facility] Last Admin: 06/19/17 14:14 Dose: 40 mg Metoprolol Succinate (Toprol Xl) 50 mg PO BID [facility] Last Admin: 06/19/17 09:40 Dose: 50 mg Multivitamins (Hexavitamin) 1 tab PO DAILY [facility] Last Admin: 06/19/17 09:40 Dose: 1 tab Vancomycin HCl (Vancocin (Oral Or Rectal Use)) 250 mg PO QID [facility] Last Admin: 06/19/17 14:14 Dose: 250 mg - Labs Labs: 06/19/17 06:23 06/19/17 06:23 PT 19.3 SECONDS (9.7-12.2) H 06/15/17 13:26 INR 1.7 06/15/17 13:26 APTT 34 SECONDS (21-34) 06/15/17 13:26 - Constitutional Appears: Chronically Ill - Head Exam Head Exam: NORMAL INSPECTION - Eye Exam Eye Exam: Normal appearance - ENT Exam ENT Exam: Mucous Membranes Dry - Respiratory Exam Respiratory Exam: Decreased Breath Sounds - Cardiovascular Exam Cardiovascular Exam: REGULAR RHYTHM - GI/Abdominal Exam GI & Abdominal Exam: Soft - Rectal Exam Rectal Exam: Deferred - Extremities Exam Extremities Exam: absent: Pedal Edema - Neurological Exam Neurological Exam: Awake Assessment and Plan (1) CHF (congestive heart failure) Status: Acute (2) Rapid atrial fibrillation Status: Acute (3) Myelodysplasia (myelodysplastic syndrome) Status: Chronic (4) Pulmonary embolism on long-term anticoagulation therapy Status: Acute (5) Pulmonary embolism Status: Chronic - Assessment and Plan (Free Text) Plan: A/P: Continue medications. Advised physical therapy. Apprciate Mary Cruz Ahman notes
--- NOTE | 2017-06-19 17:47 | CP.PCM.PN ---
Subjective - Date & Time of Evaluation Date of Evaluation: 06/19/17 Time of Evaluation: 10:00 - Subjective Subjective: Patient seen and examined at bedside. Patient reports improvements in her breathing. She denies any chest pain, wheezing, nausea, or cough. Objective - Vital Signs/Intake and Output Vital Signs (last 24 hours): Temp Pulse Resp BP Pulse Ox 97.5 F L 91 H 20 99/69 L 99 06/19/17 16:15 06/19/17 16:15 06/19/17 16:15 06/19/17 16:15 06/19/17 16:15 Intake and Output: 06/19/17 06/19/17 06:59 18:59 Intake Total 670 300 Output Total 3 Balance 667 300 - Medications Medications: Current Medications Acetaminophen (Tylenol 325mg Tab) 650 mg PO Q6 PRN PRN Reason: Pain, Mild (1-3) Last Admin: 06/19/17 11:51 Dose: 650 mg Albuterol/Ipratropium (Duoneb 3 Mg/0.5 Mg (3 Ml) Ud) 3 ml INH RQ6 [facility] Last Admin: 06/19/17 14:01 Dose: 3 ml Amlodipine Besylate (Norvasc) 5 mg PO DAILY [facility] Last Admin: 06/19/17 09:40 Dose: Not Given Apixaban (Eliquis) 5 mg PO BID [facility] Last Admin: 06/19/17 09:40 Dose: 5 mg Aspirin (Aspirin Chewable) 81 mg PO DAILY [facility] Last Admin: 06/19/17 09:40 Dose: 81 mg Furosemide (Lasix) 20 mg IVP DAILY [facility] Last Admin: 06/19/17 09:39 Dose: Not Given Losartan Potassium (Cozaar) 25 mg PO DAILY [facility] Last Admin: 06/19/17 09:41 Dose: Not Given Methimazole (Tapazole) 5 mg PO DAILY [facility] Last Admin: 06/19/17 09:39 Dose: 5 mg Methylprednisolone (Solu-Medrol) 40 mg IVP Q8 [facility] Last Admin: 06/19/17 14:14 Dose: 40 mg Metoprolol Succinate (Toprol Xl) 50 mg PO BID [facility] Last Admin: 06/19/17 09:40 Dose: 50 mg Multivitamins (Hexavitamin) 1 tab PO DAILY [facility] Last Admin: 02/08/18 09:40 Dose: 1 tab Vancomycin HCl (Vancocin (Oral Or Rectal Use)) 250 mg PO QID [facility] Last Admin: 06/19/17 14:14 Dose: 250 mg - Labs Labs: 06/19/17 06:23 06/19/17 06:23 PT 19.3 SECONDS (9.7-12.2) H 06/15/17 13:26 INR 1.7 06/15/17 13:26 APTT 34 SECONDS (21-34) 06/15/17 13:26 - Head Exam Head Exam: ATRAUMATIC, NORMOCEPHALIC - Eye Exam Eye Exam: Normal appearance - ENT Exam ENT Exam: Mucous Membranes Moist - Neck Exam Neck Exam: Normal Inspection - Respiratory Exam Respiratory Exam: Rales Assessment and Plan (1) SOB (shortness of breath) Assessment & Plan: Shortness of breath -CHF, COPD or acute bronchitis -continue duonebs, steroids, antibiotics Status: Acute (2) Myelodysplasia (myelodysplastic syndrome) Status: Acute
--- NOTE | 2017-06-19 22:16 | CP.PCM.PN ---
Subjective - Date & Time of Evaluation Date of Evaluation: 06/19/17 Time of Evaluation: 08:15 - Subjective Subjective: +C dif Ag No fever No sob Objective - Vital Signs/Intake and Output Vital Signs (last 24 hours): Temp Pulse Resp BP Pulse Ox 97.5 F L 87 20 102/62 99 06/19/17 16:15 06/19/17 18:00 06/19/17 16:15 06/19/17 18:03 06/19/17 16:15 Intake and Output: 06/19/17 06/20/17 18:59 06:59 Intake Total 300 Balance 300 - Medications Medications: Current Medications Acetaminophen (Tylenol 325mg Tab) 650 mg PO Q6 PRN PRN Reason: Pain, Mild (1-3) Last Admin: 06/19/17 11:51 Dose: 650 mg Albuterol/Ipratropium (Duoneb 3 Mg/0.5 Mg (3 Ml) Ud) 3 ml INH RQ6 [facility] Last Admin: 06/19/17 14:01 Dose: 3 ml Amlodipine Besylate (Norvasc) 5 mg PO DAILY [facility] Last Admin: 06/19/17 09:40 Dose: Not Given Apixaban (Eliquis) 5 mg PO BID [facility] Last Admin: 06/19/17 18:08 Dose: 5 mg Aspirin (Aspirin Chewable) 81 mg PO DAILY [facility] Last Admin: 06/19/17 09:40 Dose: 81 mg Furosemide (Lasix) 20 mg IVP DAILY [facility] Last Admin: 06/19/17 09:39 Dose: Not Given Losartan Potassium (Cozaar) 25 mg PO DAILY [facility] Last Admin: 06/19/17 09:41 Dose: Not Given Methimazole (Tapazole) 5 mg PO DAILY [facility] Last Admin: 06/19/17 09:39 Dose: 5 mg Methylprednisolone (Solu-Medrol) 40 mg IVP Q8 [facility] Last Admin: 06/19/17 21:33 Dose: 40 mg Metoprolol Succinate (Toprol Xl) 50 mg PO BID [facility] Last Admin: 06/19/17 18:01 Dose: Not Given Multivitamins (Hexavitamin) 1 tab PO DAILY [facility] Last Admin: 06/19/17 09:40 Dose: 1 tab Vancomycin HCl (Vancocin (Oral Or Rectal Use)) 250 mg PO QID [facility] Last Admin: 06/19/17 21:33 Dose: 250 mg - Labs Labs: 06/19/17 06:23 06/19/17 06:23 PT 19.3 SECONDS (9.7-12.2) H 06/15/17 13:26 INR 1.7 06/15/17 13:26 APTT 34 SECONDS (21-34) 06/15/17 13:26 - Constitutional Appears: Non-toxic - Eye Exam Eye Exam: absent: Scleral icterus - Neck Exam Neck Exam: Full ROM - Respiratory Exam Respiratory Exam: Decreased Breath Sounds - Cardiovascular Exam Cardiovascular Exam: Irregular Rhythm - GI/Abdominal Exam GI & Abdominal Exam: Soft - Extremities Exam Extremities Exam: Pedal Edema. absent: Calf Tenderness - Neurological Exam Neurological Exam: Alert, Oriented x3 Assessment and Plan - Assessment and Plan (Free Text) Assessment: C. dif colitis COPD CHF-compensated CAD Afib MDS Plan: Cont po Vanco Cont lasix, bronchodilators,steroids Monitor lytes, CBC
[2017-06-20] MEDS: Albuterol-Ipratrop 3 mg / 0.5 (3 ml) UD INH SCH ×4 (01:03→19:20)
[2017-06-20] MEDS: MethylPREDNISolone 40 mg Vial IVP SCH (05:30)
[2017-06-20 07:59] LABS: HEMOGLOBIN 8.7 g/dL (11.0-16.0); MEAN CELL VOLUME 86.4 fL (81.0-99.0); MEAN CORPUSCULAR HEMOGLOBIN 28.5 pg (27.0-31.0); MEAN PLATELET VOLUME 10.5 fL (7.2-11.7); RBC 3.04 Mil/uL (3.80-5.20); RED CELL DISTRIBUTION WIDTH 16.7 % (11.5-14.5)
--- NOTE | 2017-06-20 08:24 | CP.PCM.PN ---
Subjective - Date & Time of Evaluation Date of Evaluation: 06/20/17 Time of Evaluation: 08:10 - Subjective Subjective: Pt still has loose stools. No n/v, appetite is better No CP, no SOB, edema is decrease, (+) minimal dry cough Objective - Vital Signs/Intake and Output Vital Signs (last 24 hours): Temp Pulse Resp BP Pulse Ox 97.7 F 92 H 20 102/60 100 06/20/17 07:00 06/20/17 07:00 06/20/17 07:00 06/20/17 07:00 06/20/17 07:00 - Medications Medications: Current Medications Acetaminophen (Tylenol 325mg Tab) 650 mg PO Q6 PRN PRN Reason: Pain, Mild (1-3) Last Admin: 06/19/17 11:51 Dose: 650 mg Albuterol/Ipratropium (Duoneb 3 Mg/0.5 Mg (3 Ml) Ud) 3 ml INH RQ6 [facility] Last Admin: 06/20/17 07:57 Dose: 3 ml Amlodipine Besylate (Norvasc) 5 mg PO DAILY [facility] Last Admin: 06/19/17 09:40 Dose: Not Given Apixaban (Eliquis) 5 mg PO BID [facility] Last Admin: 06/19/17 18:08 Dose: 5 mg Aspirin (Aspirin Chewable) 81 mg PO DAILY [facility] Last Admin: 06/19/17 09:40 Dose: 81 mg Furosemide (Lasix) 20 mg IVP DAILY [facility] Last Admin: 06/19/17 09:39 Dose: Not Given Losartan Potassium (Cozaar) 25 mg PO DAILY [facility] Last Admin: 06/19/17 09:41 Dose: Not Given Methimazole (Tapazole) 5 mg PO DAILY [facility] Last Admin: 06/19/17 09:39 Dose: 5 mg Methylprednisolone (Solu-Medrol) 40 mg IVP Q8 [facility] Last Admin: 06/20/17 05:30 Dose: 40 mg Metoprolol Succinate (Toprol Xl) 50 mg PO BID [facility] Last Admin: 06/19/17 18:01 Dose: Not Given Multivitamins (Hexavitamin) 1 tab PO DAILY [facility] Last Admin: 06/19/17 09:40 Dose: 1 tab Vancomycin HCl (Vancocin (Oral Or Rectal Use)) 250 mg PO QID [facility] Last Admin: 06/19/17 21:33 Dose: 250 mg - Labs Labs: 06/20/17 07:42 06/19/17 06:23 PT 19.3 SECONDS (9.7-12.2) H 06/15/17 13:26 INR 1.7 06/15/17 13:26 APTT 34 SECONDS (21-34) 06/15/17 13:26 - Constitutional Appears: No Acute Distress - ENT Exam ENT Exam: Mucous Membranes Moist - Neck Exam Neck Exam: Full ROM. absent: Lymphadenopathy, Normal Inspection - Respiratory Exam Respiratory Exam: Decreased Breath Sounds. absent: Rales, Rhonchi, Wheezes - Cardiovascular Exam Cardiovascular Exam: REGULAR RHYTHM, +S1, +S2, Murmur. absent: Gallop, JVD - GI/Abdominal Exam GI & Abdominal Exam: Soft. absent: Tenderness, Mass - Extremities Exam Extremities Exam: Calf Tenderness, Pedal Edema. absent: Full ROM, Joint Swelling, Normal Capillary Refill Assessment and Plan - Assessment and Plan (Free Text) Assessment: C diff colitis; COPD, Exac CHF, Myelodysplastic Syndrome Cont meds/ supportive care
[2017-06-20 08:33] LABS: ALB/GLOB RATIO 0.7 (1.0-2.1); ALBUMIN 2.4 g/dL (3.5-5.0); ALT/SGPT 52 U/L (9-52); AST/SGOT 35 U/L (14-36); BLOOD UREA NITROGEN 24 mg/dL (7-17); CALCIUM 8.2 mg/dl (8.6-10.4); GFR AFRICAN-AMERICAN > 60; GFR NON-AFRICAN AMERICAN > 60
--- NOTE | 2017-06-20 09:33 | PN ---
DATE: 06/19/2017 FOLLOWUP RENAL CONSULTATION SUBJECTIVE: The patient is located in room 570, bed A. Requested by Dr. Deion Marie. REASON FOR FOLLOW-UP: Hyponatremia. HISTORY: Mrs. Espino is a 77-year-old elderly female with past medical history significant for hypertension, myelodysplastic syndrome, hay fever, and PE - status post cardiac cath and found to have RCA with distal thrombus in the right coronary artery and unable to place any stent and angioplasty, recommending medical management by Dr. Hari Skinner. The patient was also receiving antibiotics for possible pneumonia, and now the patient is complaining of diarrhea and stool for C. difficile toxin is positive and started on vancomycin p.o. The patient has bowel movement x2 today so far. Slightly better, not in distress. No chest pain. No palpitation. No fever. No cough. No abdominal pain. No nausea. No shortness of breath. PHYSICAL EXAMINATION: VITAL SIGNS: As follows: Blood pressure is 99/69, pulse 91, respirations 20, temperature 97.5, saturation 99. Height 5 feet 2 inches and weight is 125 pounds. GENERAL: Ms. Espino is a 77-year-old elderly female, moderately nourished, not in distress. HEENT: Pupils normal and reactive to light and accommodation. Conjunctivae pink. Sclerae are anicteric. Tongue is moist and is midline. LUNGS: Symmetric on both sides. Bilateral breath sounds present. Occasional left basal crackles present. CVS: [place] at the fifth intercostal space, midclavicular line. S2 and S2. No murmur, no gallop. ABDOMEN: Normal in appearance, soft, tympanic. No guarding. No hepatosplenomegaly. COMMERCIAL CONSTRUCTION ESTIMATOR: The patient is alert, awake, oriented x3. Nonfocal neuro examination. Cranial nerves II through XII grossly intact. Sensory and motor system is within normal limits. EXTREMITIES: No cyanosis, no clubbing, no edema. CURRENT MEDICATIONS: Include as follows: Aspirin 81 mg daily, losartan 25 mg p.o. daily, DuoNeb inhaler q.6 hours, 5 mg p.o. b.i.d., multivitamin 1 tablet daily, Lasix 20 mg IV daily, amlodipine 5 mg daily, and methylprednisolone 40 mg IV q.8 hours, Tapazole 5 mg p.o. daily, metoprolol 50 mg p.o. b.i.d., Tylenol, and vancomycin 250 mg p.o. q.i.d. Cefepime was discontinued. LABORATORY DATA: Include as follows: WBC 7.3, hemoglobin 9.2, hematocrit is 27.4, platelets 463. Sodium 132, potassium 4.2, chloride 96, CO2 of 29, BUN 27, creatinine 0.6, glucose is 115, calcium is 8.9. Total bili 1.0, AST 24, ALT 33, alkaline phosphatase 77, total protein is 6, albumin is 2.6. Stool for C. difficile toxin is positive as of 06/18/2017. In summary, Mrs. Espino is a 77-year-old elderly female with hypertension, myelodysplastic syndrome with thrombus in the RCA being treated for pneumonia, now with diarrhea and hyponatremia most likely secondary to SIADH. 1. Hypertension. Blood pressure is stable. Hold blood pressure medicine for systolic blood pressure less than 120. 2. C. difficile colitis. Continue vancomycin. The patient is off cefepime. Continue to monitor BMP in a.m. We will follow with you. Thank you for allowing me to participate in your patient's care. Rehan Dos Santos MD
[2017-06-20] MEDS: Multiple Vitamins Tab PO SCH (09:48)
[2017-06-20] MEDS: methIMAzole 5 MG TAB PO SCH (09:48)
[2017-06-20] MEDS: Metoprolol Succinate 50 mg XL Tab PO SCH ×2 (09:49→17:43)
[2017-06-20] MEDS: Vancomycin 125 MG/5 ML SOLN (ORAL/RECTAL) PO SCH ×4 (09:51→21:21)
--- NOTE | 2017-06-20 11:42 | CP.PCM.PN ---
Subjective - Date & Time of Evaluation Date of Evaluation: 06/20/17 Time of Evaluation: 07:20 - Subjective Subjective: patient seen and examined Lying comfortably in no respiratory distress Denies cough, denies fever chills No chest pain Objective - Vital Signs/Intake and Output Vital Signs (last 24 hours): Temp Pulse Resp BP Pulse Ox 97.7 F 85 20 102/60 100 06/20/17 07:00 06/20/17 07:15 06/20/17 07:00 06/20/17 09:50 06/20/17 07:00 - Medications Medications: Current Medications Acetaminophen (Tylenol 325mg Tab) 650 mg PO Q6 PRN PRN Reason: Pain, Mild (1-3) Last Admin: 06/19/17 11:51 Dose: 650 mg Albuterol/Ipratropium (Duoneb 3 Mg/0.5 Mg (3 Ml) Ud) 3 ml INH RQ6 [facility] Last Admin: 06/20/17 07:57 Dose: 3 ml Amlodipine Besylate (Norvasc) 5 mg PO DAILY [facility] Last Admin: 06/20/17 09:50 Dose: Not Given Apixaban (Eliquis) 5 mg PO BID [facility] Last Admin: 06/20/17 09:48 Dose: 5 mg Aspirin (Aspirin Chewable) 81 mg PO DAILY [facility] Last Admin: 06/20/17 09:49 Dose: 81 mg Furosemide (Lasix) 20 mg IVP DAILY [facility] Last Admin: 06/20/17 09:50 Dose: Not Given Losartan Potassium (Cozaar) 25 mg PO DAILY [facility] Last Admin: 06/20/17 09:49 Dose: Not Given Methimazole (Tapazole) 5 mg PO DAILY [facility] Last Admin: 06/20/17 09:48 Dose: 5 mg Methylprednisolone (Solu-Medrol) 40 mg IVP Q8 [facility] Last Admin: 06/20/17 05:30 Dose: 40 mg Metoprolol Succinate (Toprol Xl) 50 mg PO BID [facility] Last Admin: 06/20/17 09:49 Dose: Not Given Multivitamins (Hexavitamin) 1 tab PO DAILY [facility] Last Admin: 06/20/17 09:48 Dose: 1 tab Vancomycin HCl (Vancocin (Oral Or Rectal Use)) 250 mg PO QID [facility] Last Admin: 06/20/17 09:51 Dose: 250 mg - Labs Labs: 06/20/17 07:42 06/20/17 07:42 PT 19.3 SECONDS (9.7-12.2) H 06/15/17 13:26 INR 1.7 06/15/17 13:26 APTT 34 SECONDS (21-34) 06/15/17 13:26 - Head Exam Head Exam: ATRAUMATIC, NORMOCEPHALIC - ENT Exam ENT Exam: Mucous Membranes Moist - Neck Exam Neck Exam: Normal Inspection - Respiratory Exam Respiratory Exam: Rales Assessment and Plan (1) SOB (shortness of breath) Assessment & Plan: continue nebulizer treatment Antibiotics for C. difficile Discontinue Solu-Medrol to prednisone Status: Acute (2) Myelodysplasia (myelodysplastic syndrome) Status: Acute
[2017-06-20 11:58] LABS: EOS # 0.1 K/uL (0.0-0.7); LYMPH # 0.7 K/uL (1.0-4.3); MONO # 0.2 K/uL (0.0-0.8)
--- NOTE | 2017-06-20 17:32 | CP.PCM.PN ---
Subjective - Date & Time of Evaluation Date of Evaluation: 06/20/17 Time of Evaluation: 17:31 - Subjective Subjective: pt is seen and examined, follow up consult is dictated #[id number] Objective - Vital Signs/Intake and Output Vital Signs (last 24 hours): Temp Pulse Resp BP Pulse Ox 97.6 F 104 H 20 111/63 96 06/20/17 17:07 06/20/17 17:07 06/20/17 17:07 06/20/17 17:07 06/20/17 17:07 Intake and Output: 06/20/17 06/20/17 06:59 18:59 Intake Total 200 Balance 200 - Medications Medications: Current Medications Acetaminophen (Tylenol 325mg Tab) 650 mg PO Q6 PRN PRN Reason: Pain, Mild (1-3) Last Admin: 06/19/17 11:51 Dose: 650 mg Albuterol/Ipratropium (Duoneb 3 Mg/0.5 Mg (3 Ml) Ud) 3 ml INH RQ6 [facility] Last Admin: 06/20/17 13:24 Dose: 3 ml Amlodipine Besylate (Norvasc) 5 mg PO DAILY [facility] Last Admin: 06/20/17 09:50 Dose: Not Given Apixaban (Eliquis) 5 mg PO BID [facility] Last Admin: 06/20/17 09:48 Dose: 5 mg Aspirin (Aspirin Chewable) 81 mg PO DAILY [facility] Last Admin: 06/20/17 09:49 Dose: 81 mg Furosemide (Lasix) 20 mg IVP DAILY [facility] Last Admin: 06/20/17 09:50 Dose: Not Given Losartan Potassium (Cozaar) 25 mg PO DAILY [facility] Last Admin: 06/20/17 09:49 Dose: Not Given Methimazole (Tapazole) 5 mg PO DAILY [facility] Last Admin: 06/20/17 09:48 Dose: 5 mg Metoprolol Succinate (Toprol Xl) 50 mg PO BID [facility] Last Admin: 06/20/17 09:49 Dose: Not Given Multivitamins (Hexavitamin) 1 tab PO DAILY [facility] Last Admin: 06/20/17 09:48 Dose: 1 tab Prednisone (Prednisone Tab) 10 mg PO DAILY [facility] Last Admin: 06/20/17 12:31 Dose: 10 mg Vancomycin HCl (Vancocin (Oral Or Rectal Use)) 250 mg PO QID [facility] Last Admin: 06/20/17 13:09 Dose: 250 mg - Labs Labs: 06/20/17 07:42 06/20/17 07:42 PT 19.3 SECONDS (9.7-12.2) H 06/15/17 13:26 INR 1.7 06/15/17 13:26 APTT 34 SECONDS (21-34) 06/15/17 13:26
[2017-06-20] MEDS ORDERED: Epoetin Alfa 10,000 unit/ml Dialysis SC ONE (18:00)
[2017-06-21] MEDS: Albuterol-Ipratrop 3 mg / 0.5 (3 ml) UD INH SCH (01:32)
--- NOTE | 2017-06-21 08:27 | CP.PCM.PN ---
Subjective - Date & Time of Evaluation Date of Evaluation: 06/21/17 Time of Evaluation: 08:10 - Subjective Subjective: Pt still a has abd cramps. (+) Dry cough and feels tired. No CP, no SOB, (+) edema and tingling of the whole body. no n/v, no dysuria Objective - Vital Signs/Intake and Output Vital Signs (last 24 hours): Temp Pulse Resp BP Pulse Ox 97.9 F 97 H 20 103/65 100 06/21/17 07:00 06/21/17 07:00 06/21/17 07:00 06/21/17 07:00 06/21/17 07:00 Intake and Output: 06/21/17 06/21/17 06:59 18:59 Intake Total 0 Balance 0 - Medications Medications: Current Medications Acetaminophen (Tylenol 325mg Tab) 650 mg PO Q6 PRN PRN Reason: Pain, Mild (1-3) Last Admin: 06/21/17 06:01 Dose: 650 mg Amlodipine Besylate (Norvasc) 5 mg PO DAILY [facility] Last Admin: 06/20/17 09:50 Dose: Not Given Apixaban (Eliquis) 5 mg PO BID [facility] Last Admin: 06/20/17 17:41 Dose: 5 mg Aspirin (Aspirin Chewable) 81 mg PO DAILY [facility] Last Admin: 06/20/17 09:49 Dose: 81 mg Dicyclomine HCl (Bentyl) 10 mg PO BID [facility] Furosemide (Lasix) 20 mg IVP DAILY [facility] Last Admin: 06/20/17 09:50 Dose: Not Given Losartan Potassium (Cozaar) 25 mg PO DAILY [facility] Last Admin: 06/20/17 09:49 Dose: Not Given Methimazole (Tapazole) 5 mg PO DAILY [facility] Last Admin: 06/20/17 09:48 Dose: 5 mg Metoprolol Succinate (Toprol Xl) 50 mg PO BID [facility] Last Admin: 06/20/17 17:43 Dose: 50 mg Multivitamins (Hexavitamin) 1 tab PO DAILY [facility] Last Admin: 06/20/17 09:48 Dose: 1 tab Prednisone (Prednisone Tab) 10 mg PO DAILY [facility] Last Admin: 06/20/17 12:31 Dose: 10 mg Vancomycin HCl (Vancocin (Oral Or Rectal Use)) 250 mg PO QID [facility] Last Admin: 06/20/17 21:21 Dose: 250 mg - Labs Labs: 06/20/17 07:42 06/20/17 07:42 PT 19.3 SECONDS (9.7-12.2) H 06/15/17 13:26 INR 1.7 06/15/17 13:26 APTT 34 SECONDS (21-34) 06/15/17 13:26 - Constitutional Appears: No Acute Distress - Eye Exam Eye Exam: Normal appearance - ENT Exam ENT Exam: Mucous Membranes Moist - Respiratory Exam Respiratory Exam: Decreased Breath Sounds. absent: Rales, Rhonchi, Wheezes - Cardiovascular Exam Cardiovascular Exam: REGULAR RHYTHM, JVD, +S1, +S2, Murmur. absent: Gallop - GI/Abdominal Exam GI & Abdominal Exam: Soft. absent: Tenderness, Mass - Extremities Exam Extremities Exam: Full ROM, Normal Capillary Refill, Pedal Edema. absent: Calf Tenderness, Joint Swelling Assessment and Plan - Assessment and Plan (Free Text) Assessment: C diff diarrhea COPD, Exac Myelodysplastic Synd; Recent PE Add bentyl/ encourage to ambulate w/ help Cont meds
[2017-06-21 09:00] LABS: HEMOGLOBIN 8.9 g/dL (11.0-16.0); MEAN CELL VOLUME 86.3 fL (81.0-99.0); MEAN CORPUSCULAR HEMOGLOBIN 28.8 pg (27.0-31.0); MEAN CORPUSCULAR HGB CONC 33.4 g/dL (33.0-37.0); MEAN PLATELET VOLUME 10.7 fL (7.2-11.7); RBC 3.09 Mil/uL (3.80-5.20); RED CELL DISTRIBUTION WIDTH 16.8 % (11.5-14.5)
[2017-06-21 09:08] LABS: ALB/GLOB RATIO 0.8 (1.0-2.1); ALBUMIN 2.3 g/dL (3.5-5.0); ALT/SGPT 70 U/L (9-52); AST/SGOT 43 U/L (14-36); BLOOD UREA NITROGEN 21 mg/dL (7-17); CALCIUM 8.2 mg/dl (8.6-10.4); GFR AFRICAN-AMERICAN > 60; GFR NON-AFRICAN AMERICAN > 60
[2017-06-21] MEDS: Multiple Vitamins Tab PO SCH (09:17)
[2017-06-21] MEDS: Vancomycin 125 MG/5 ML SOLN (ORAL/RECTAL) PO SCH ×4 (09:17→21:30)
[2017-06-21] MEDS: Metoprolol Succinate 50 mg XL Tab PO SCH ×2 (09:18→17:16)
[2017-06-21] MEDS: methIMAzole 5 MG TAB PO SCH (09:21)
--- NOTE | 2017-06-21 10:47 | CP.PCM.PN ---
Subjective - Date & Time of Evaluation Date of Evaluation: 06/21/17 Time of Evaluation: 10:47 - Subjective Subjective: pt is seen and examined, follow up consult is dictated #[id number] Objective - Vital Signs/Intake and Output Vital Signs (last 24 hours): Temp Pulse Resp BP Pulse Ox 97.9 F 97 H 20 103/65 100 06/21/17 07:00 06/21/17 07:00 06/21/17 07:00 06/21/17 07:00 06/21/17 07:00 Intake and Output: 06/21/17 06/21/17 06:59 18:59 Intake Total 0 Balance 0 - Medications Medications: Current Medications Acetaminophen (Tylenol 325mg Tab) 650 mg PO Q6 PRN PRN Reason: Pain, Mild (1-3) Last Admin: 06/21/17 06:01 Dose: 650 mg Amlodipine Besylate (Norvasc) 5 mg PO DAILY [facility] Last Admin: 06/21/17 09:18 Dose: Not Given Apixaban (Eliquis) 5 mg PO BID [facility] Last Admin: 06/21/17 09:17 Dose: 5 mg Aspirin (Aspirin Chewable) 81 mg PO DAILY [facility] Last Admin: 06/21/17 09:17 Dose: 81 mg Dicyclomine HCl (Bentyl) 10 mg PO BID [facility] Furosemide (Lasix) 20 mg IVP DAILY [facility] Last Admin: 06/20/17 09:50 Dose: Not Given Losartan Potassium (Cozaar) 25 mg PO DAILY [facility] Last Admin: 06/21/17 09:19 Dose: Not Given Methimazole (Tapazole) 5 mg PO DAILY [facility] Last Admin: 06/21/17 09:21 Dose: 5 mg Metoprolol Succinate (Toprol Xl) 50 mg PO BID [facility] Last Admin: 06/21/17 09:18 Dose: Not Given Multivitamins (Hexavitamin) 1 tab PO DAILY [facility] Last Admin: 06/21/17 09:17 Dose: 1 tab Prednisone (Prednisone Tab) 10 mg PO DAILY [facility] Last Admin: 06/21/17 09:17 Dose: 10 mg Sodium Chloride (Sodium Chloride Tab) 1 gm PO TID [facility] Vancomycin HCl (Vancocin (Oral Or Rectal Use)) 250 mg PO QID [facility] Last Admin: 06/21/17 09:17 Dose: 250 mg - Labs Labs: 06/21/17 08:45 06/21/17 08:45 PT 19.3 SECONDS (9.7-12.2) H 06/15/17 13:26 INR 1.7 06/15/17 13:26 APTT 34 SECONDS (21-34) 06/15/17 13:26
[2017-06-21 11:56] LABS: EOS # 0.1 K/uL (0.0-0.7); LYMPH # 0.8 K/uL (1.0-4.3); MONO # 0.5 K/uL (0.0-0.8); NEUT # 4.6 K/uL (1.8-7.0)
--- NOTE | 2017-06-22 00:42 | PN ---
DATE: 06/21/2017. LOCATION: Room 551, bed B. REQUESTED BY: Dr. Deion Marie and Dr. Sosa. SUBJECTIVE: Mrs. Srinivas Ortiz is a 77 years old elderly [place] female with a past medical history significant for hypertension, CHF, AFib, PE, thrombus in distal RCA unable to do thrombolysis and angioplasty or stenting. The patient was admitted initially with shortness of breath. Subsequently, the patient was found to have severe hyponatremia and now the patient is being treated for diarrhea and C diff colitis. The patient is feeling better, not in acute distress. Denies any headache, dizziness. Denies any chest pain or palpitation. Denies any fever or cough. No abdominal pain. No nausea, vomiting, diarrhea. PHYSICAL EXAMINATION: VITAL SIGNS: As follows, blood pressure this afternoon 103/65, pulse 94, respirations 18, temperature 99.2, saturation 95%. Height 5 feet 2 inches and weight is 123 pounds. GENERAL: Mrs. Espino is a 77 years old elderly female, moderately built, moderately nourished, not in distress. HEENT: Pupils normal, reactive to light and accommodation. Conjunctivae pink. Sclerae anicteric. Tongue is moist. Trachea is midline. LUNGS: Symmetric on both sides. Bilateral breath sounds present. Clear on auscultation. CVS: [place] at the fifth intercostal space, midclavicular line. S1 and S2 audible. No murmur or gallop. ABDOMEN: Normal in appearance, soft, tympanic. No guarding. No rigidity. No hepatosplenomegaly. RECORD TESTER: The patient is alert, awake, oriented x3. Nonfocal neuro examination. Cranial nerves II through XII grossly intact. Sensory and motor system is within normal limits. EXTREMITIES: No cyanosis, no clubbing, no edema. CURRENT MEDICATIONS: Include as follows; aspirin 81 mg daily, Bentyl 10 mg p.o. b.i.d., losartan 25 mg daily, Eliquis 5 mg p.o. b.i.d., Lasix 20 mg p.o. b.i.d., Norvasc 5 mg daily, prednisone 5 mg p.o. daily, sodium chloride tablet 1 gm p.o. t.i.d., Tapazole 5 mg p.o. daily, Toprol XL 50 mg p.o. b.i.d., Tylenol and vancomycin 250 mg p.o. q.i.d. LABORATORY DATA: As follows as of 06/21/2017, WBC 6, hemoglobin 8.9, hematocrit is 26.6, platelets of 453. Sodium 129, potassium 4.1, chloride 95, CO2 29, BUN 21, creatinine 0.5, glucose 92, calcium 8.2. Total bili 1.1, AST 43, ALT 70, alkaline phosphatase 77, total protein 5.1, albumin is 2.3 and troponin 0.012. ASSESSMENT: In summary, Mrs. Espino is a 77 years old elderly [place] female with a history of myelodysplastic syndrome, hypertension, congestive heart failure, atrial fibrillation, pulmonary embolism and thrombus in the distal right coronary artery unable to do stenting or angioplasty with low serum sodium and positive stool for clostridium difficile toxin. 1. Hyponatremia, cannot rule out syndrome of inappropriate antidiuretic hormone (secretion). The patient responded to tolvaptan 1 dose and now serum sodium is slowly decreasing, continue to restrict fluids to 1 liter per day and we will add sodium chloride tablet 1 tablet p.o. t.i.d. 2. Anemia secondary to myelodysplastic syndrome. Consider to add Epogen 10,000 units two times a week. 3. Status post pulmonary embolism. 4. Thrombus in distal right coronary artery. PLAN: Continue Eliquis as per cardiology recommendations and continue antihypertensive medications, Cozaar, Metoprolol and Norvasc. We will follow with you. Repeat BMP in a.m. Thank you for allowing me to participate in your patient's care. Rehan Dos Santos MD
[2017-06-22 07:19] LABS: HEMOGLOBIN 8.3 g/dL (11.0-16.0); MEAN CELL VOLUME 86.5 fL (81.0-99.0); MEAN CORPUSCULAR HEMOGLOBIN 28.9 pg (27.0-31.0); MEAN CORPUSCULAR HGB CONC 33.4 g/dL (33.0-37.0); RBC 2.87 Mil/uL (3.80-5.20); RED CELL DISTRIBUTION WIDTH 17.2 % (11.5-14.5); WHITE BLOOD COUNT 7.3 K/uL (4.8-10.8)
[2017-06-22 07:56] LABS: ALB/GLOB RATIO 0.8 (1.0-2.1); ALBUMIN 2.3 g/dL (3.5-5.0); ALT/SGPT 63 U/L (9-52); AST/SGOT 29 U/L (14-36); BLOOD UREA NITROGEN 21 mg/dL (7-17); CALCIUM 8.2 mg/dl (8.6-10.4); GFR AFRICAN-AMERICAN > 60; GFR NON-AFRICAN AMERICAN > 60
[2017-06-22] MEDS ORDERED: Sodium Chloride 0.9% 500 ML IV SCH (10:15)
[2017-06-22] MEDS: Vancomycin 125 MG/5 ML SOLN (ORAL/RECTAL) PO SCH ×4 (10:16→22:30)
[2017-06-22] MEDS: Multiple Vitamins Tab PO SCH (10:17)
[2017-06-22] MEDS: methIMAzole 5 MG TAB PO SCH (10:17)
[2017-06-22] MEDS: Metoprolol Succinate 50 mg XL Tab PO SCH ×2 (10:18→17:52)
--- NOTE | 2017-06-22 12:00 | RAD ---
HISTORY: r/o pneumonia COMPARISON: Chest x-ray performed 06/15/17 TECHNIQUE: Chest, one view. FINDINGS: LUNGS: Bibasilar atelectasis/ infiltrates. Please note that chest x-ray has limited sensitivity for the detection of pulmonary masses. PLEURA: No significant pleural effusion identified. No definite pneumothorax . CARDIOVASCULAR: Cardiomegaly. Dense atherosclerotic calcifications of the aorta. OSSEOUS STRUCTURES: No acute osseous abnormality identified. VISUALIZED UPPER ABDOMEN: Unremarkable. OTHER FINDINGS: None. IMPRESSION: Cardiomegaly. Bibasilar atelectasis/ infiltrates. Mild pulmonary venous congestion.
[2017-06-22] MEDS: metroNIDAZOLE IV 500 mg/100 ml 500 MG/100 ML BAG IVPB SCH ×2 (14:23→21:47)
--- NOTE | 2017-06-22 15:31 | CP.PCM.PN ---
Subjective - Date & Time of Evaluation Date of Evaluation: 06/22/17 Time of Evaluation: 07:00 - Subjective Subjective: FEVER ON AND OFF NO COUGH OR SOB CXR SHOWS ? INFILTRATE/ EFFUSION + c DIFF ON iv FLAGYL AND PO VANCO Objective - Vital Signs/Intake and Output Vital Signs (last 24 hours): Temp Pulse Resp BP Pulse Ox 100 F H 104 H 20 98/47 L 98 06/22/17 11:50 06/22/17 11:50 06/22/17 11:50 06/22/17 11:50 06/22/17 11:50 Intake and Output: 06/22/17 06/22/17 06:59 18:59 Intake Total 60 1180 Output Total 750 Balance -690 1180 - Medications Medications: Current Medications Acetaminophen (Tylenol 325mg Tab) 650 mg PO Q6 PRN PRN Reason: Pain, Mild (1-3) Last Admin: 06/22/17 07:11 Dose: 650 mg Amlodipine Besylate (Norvasc) 5 mg PO DAILY [facility] Last Admin: 06/22/17 10:18 Dose: Not Given Apixaban (Eliquis) 5 mg PO BID [facility] Last Admin: 06/22/17 10:17 Dose: 5 mg Aspirin (Aspirin Chewable) 81 mg PO DAILY [facility] Last Admin: 06/22/17 10:17 Dose: 81 mg Dicyclomine HCl (Bentyl) 10 mg PO BID [facility] Last Admin: 06/22/17 10:17 Dose: 10 mg Furosemide (Lasix) 20 mg PO BID [facility] Last Admin: 06/22/17 10:17 Dose: Not Given Metronidazole (Flagyl) 500 mg in 100 mls @ 100 mls/hr IVPB Q8 [facility] Last Admin: 06/22/17 14:23 Dose: 100 mls/hr Losartan Potassium (Cozaar) 25 mg PO DAILY [facility] Last Admin: 06/22/17 10:18 Dose: Not Given Methimazole (Tapazole) 5 mg PO DAILY [facility] Last Admin: 06/22/17 10:17 Dose: 5 mg Metoprolol Succinate (Toprol Xl) 50 mg PO BID [facility] Last Admin: 06/22/17 10:18 Dose: Not Given Multivitamins (Hexavitamin) 1 tab PO DAILY [facility] Last Admin: 06/22/17 10:17 Dose: 1 tab Prednisone (Prednisone Tab) 5 mg PO DAILY [facility] Last Admin: 06/22/17 10:17 Dose: 5 mg Sodium Chloride (Sodium Chloride Tab) 1 gm PO TID [facility] Last Admin: 06/22/17 13:06 Dose: 1 gm Vancomycin HCl (Vancocin (Oral Or Rectal Use)) 250 mg PO QID [facility] Last Admin: 06/22/17 13:06 Dose: 250 mg - Labs Labs: 06/22/17 07:05 06/22/17 07:05 PT 19.3 SECONDS (9.7-12.2) H 06/15/17 13:26 INR 1.7 06/15/17 13:26 APTT 34 SECONDS (21-34) 06/15/17 13:26 - Constitutional Appears: Non-toxic, Cachectic, Chronically Ill - Head Exam Head Exam: NORMOCEPHALIC - Eye Exam Eye Exam: PERRL - ENT Exam ENT Exam: Mucous Membranes Dry - Neck Exam Neck Exam: absent: Lymphadenopathy - Respiratory Exam Respiratory Exam: Decreased Breath Sounds - Cardiovascular Exam Cardiovascular Exam: REGULAR RHYTHM - GI/Abdominal Exam GI & Abdominal Exam: Distended, Soft - Rectal Exam Rectal Exam: Deferred - Exam Exam: NORMAL INSPECTION - Extremities Exam Extremities Exam: absent: Pedal Edema - Back Exam Back Exam: absent: CVA tenderness (L), CVA tenderness (R) - Neurological Exam Neurological Exam: Alert, Awake, Oriented x3 Assessment and Plan (1) CHF (congestive heart failure) Status: Acute (2) Rapid atrial fibrillation Status: Acute (3) CAD (coronary artery disease) Status: Acute (4) Cough Status: Acute (5) Dehydration Status: Acute (6) Hyponatremia Status: Acute (7) Lower respiratory infection Status: Acute (8) Myelodysplasia (myelodysplastic syndrome) Status: Acute - Assessment and Plan (Free Text) Assessment: CONT IV FLAGYL/ PO BARRIEO DR DOUGLAS MCNEAL
--- NOTE | 2017-06-22 16:21 | CP.PCM.PN ---
Subjective - Date & Time of Evaluation Date of Evaluation: 06/22/17 Time of Evaluation: 16:21 - Subjective Subjective: pt is seen and examined, follow up consult is dictated #[id number] d/c norvasc, decrease metoprolol to 25 bid, d/c cozaar Objective - Vital Signs/Intake and Output Vital Signs (last 24 hours): Temp Pulse Resp BP Pulse Ox 98.1 F 122 H 20 118/61 97 06/22/17 15:53 06/22/17 15:53 06/22/17 15:53 06/22/17 15:53 06/22/17 15:53 Intake and Output: 06/22/17 06/22/17 06:59 18:59 Intake Total 60 1180 Output Total 750 Balance -690 1180 - Medications Medications: Current Medications Acetaminophen (Tylenol 325mg Tab) 650 mg PO Q6 PRN PRN Reason: Pain, Mild (1-3) Last Admin: 06/22/17 07:11 Dose: 650 mg Amlodipine Besylate (Norvasc) 5 mg PO DAILY [facility] Last Admin: 06/22/17 10:18 Dose: Not Given Apixaban (Eliquis) 5 mg PO BID [facility] Last Admin: 06/22/17 10:17 Dose: 5 mg Aspirin (Aspirin Chewable) 81 mg PO DAILY [facility] Last Admin: 06/22/17 10:17 Dose: 81 mg Dicyclomine HCl (Bentyl) 10 mg PO BID [facility] Last Admin: 06/22/17 10:17 Dose: 10 mg Furosemide (Lasix) 20 mg PO BID [facility] Last Admin: 06/22/17 10:17 Dose: Not Given Metronidazole (Flagyl) 500 mg in 100 mls @ 100 mls/hr IVPB Q8 [facility] Last Admin: 06/22/17 14:23 Dose: 100 mls/hr Losartan Potassium (Cozaar) 25 mg PO DAILY [facility] Last Admin: 06/22/17 10:18 Dose: Not Given Methimazole (Tapazole) 5 mg PO DAILY [facility] Last Admin: 06/22/17 10:17 Dose: 5 mg Metoprolol Succinate (Toprol Xl) 50 mg PO BID [facility] Last Admin: 06/22/17 10:18 Dose: Not Given Multivitamins (Hexavitamin) 1 tab PO DAILY [facility] Last Admin: 02/11/18 10:17 Dose: 1 tab Prednisone (Prednisone Tab) 5 mg PO DAILY [facility] Last Admin: 06/22/17 10:17 Dose: 5 mg Sodium Chloride (Sodium Chloride Tab) 1 gm PO TID [facility] Last Admin: 06/22/17 13:06 Dose: 1 gm Vancomycin HCl (Vancocin (Oral Or Rectal Use)) 250 mg PO QID [facility] Last Admin: 06/22/17 13:06 Dose: 250 mg - Labs Labs: 06/22/17 07:05 06/22/17 07:05 PT 19.3 SECONDS (9.7-12.2) H 06/15/17 13:26 INR 1.7 06/15/17 13:26 APTT 34 SECONDS (21-34) 06/15/17 13:26
[2017-06-22] MEDS ORDERED: Sodium Chloride 0.9% 1,000 ML IV SCH (23:30)
--- NOTE | 2017-06-23 04:13 | PN ---
DATE: The patient is located in room 551, bed B. Requested by Deion Marie MD REASON FOR FOLLOWUP: Hyponatremia, for further evaluation. HISTORY: Mrs. Espino is a 77-year-old elderly [place] female with a past medical history significant for hypertension, CHF, AFib, pulmonary embolism, and thrombus in distal RCA, unable to place stent, underwent angioplasty, and is being treated for CHF and hyponatremia and also now stool for C. difficile toxin is positive, being treated for C. difficile colitis in the last 1 month x2. The patient is feeling slightly better, has bowel movement x1 today. No chest pain. No palpitation. No fever. No cough. No abdominal pain. No nausea, vomiting, diarrhea. The patient is also being treated for myelodysplastic syndrome and anemia, status post Epogen x1 dose on Friday. The patient is feeling slightly better. PHYSICAL EXAMINATION: VITAL SIGNS: As follows: Blood pressure 92/33, pulse 81, respiration 18, temperature 98.1, saturation 94%. Height 5 feet 2 inches and weight is 122 pounds. GENERAL: Mrs. Espino is a 77-year-old elderly female, moderately built, moderately nourished, not in distress. HEENT: Pupils are normal and reactive to light and accommodation. Conjunctivae pink. Sclerae anicteric. Tongue is moist and trachea is midline. LUNGS: Symmetric on both sides. Bilateral breath sounds present. Occasional basal crackles present on the left more than the right. CVS: [place] at the fifth intercostal space, midclavicular line. S1 and S2 audible. No murmur or gallop. ABDOMEN: Normal in appearance, soft, tympanic. No guarding. No hepatosplenomegaly. SKI TOP TRIMMER: The patient is alert, awake, and oriented x3. Nonfocal neuro examination. Cranial nerves II through XII grossly intact. Sensory and motor system is within normal limits. EXTREMITIES: No cyanosis, no clubbing, no edema. CURRENT MEDICATIONS: Include as follows: Aspirin 81 mg daily, Bentyl 10 mg p.o. b.i.d., losartan 25 mg p.o. daily, Eliquis 5 mg p.o. b.i.d., Flagyl 400 mg IV q.8 hours, multivitamin 1 tablet daily, Lasix 20 mg p.o. b.i.d., amlodipine 5 mg p.o. daily, prednisone 5 mg p.o. daily, metoprolol 50 mg p.o. b.i.d., Tylenol, and vancomycin. LABORATORY DATA: Include as follows: As of 06/22/2017: WBC 7.3, hemoglobin 8.3, hematocrit is 24.8, platelets 455. Sodium 130, potassium 3.8, chloride 92, CO2 of 33, BUN 21, creatinine 0.6, glucose is 85, calcium 8.2. Total bili 1.3, AST 29, ALT 63, alkaline phosphatase 78, total protein 5.2, albumin is 2.3. Influenza A and B antibodies negative. In summary, Mrs. Espino is a 77-year-old elderly female with hypertension, CHF, AFib, thrombus in the distal RCA, pulmonary embolism, myelodysplastic syndrome, anemia, and C. difficile colitis with low blood pressure. 1. Prerenal azotemia secondary to diuretics and fluid restriction. 2. Hyponatremia. Cannot rule out SIADH versus thyroid disorder. 3. Anemia secondary to myelodysplastic syndrome. 4. Thrombus in distal RCA. 5. Status post PE. 6. Prerenal azotemia and C. difficile colitis. Continue Flagyl and p.o. vancomycin. Discontinue Cozaar and also decrease metoprolol to 25 mg p.o. b.i.d., hold for systolic blood pressure less than 130 and heart rate less than 60. Also, we will discontinue amlodipine until the blood pressure improves and also discontinue fluid restriction at this time. We will follow with you. Thank you for allowing me to participate in your patient's care. Rehan Do sSantos MD
[2017-06-23] MEDS: metroNIDAZOLE IV 500 mg/100 ml 500 MG/100 ML BAG IVPB SCH ×3 (05:40→21:42)
[2017-06-23 08:20] LABS: CALCIUM 7.7 mg/dl (8.6-10.4); GFR AFRICAN-AMERICAN > 60; GFR NON-AFRICAN AMERICAN > 60
[2017-06-23 08:21] LABS: BLOOD UREA NITROGEN 22 mg/dL (7-17)
--- NOTE | 2017-06-23 09:07 | CP.PCM.PN ---
Subjective - Date & Time of Evaluation Date of Evaluation: 06/23/17 Time of Evaluation: 08:43 - Subjective Subjective: Pt feels weak, no CP, no SOB, (+) edema (+) dec cough, (+) 2-3 soft stool/ day. fever in to 102 last night, (+) low grade this morning Objective - Vital Signs/Intake and Output Vital Signs (last 24 hours): Temp Pulse Resp BP Pulse Ox 100.4 F H 92 H 20 123/56 L 95 06/23/17 08:16 06/23/17 07:23 06/23/17 07:23 06/23/17 07:23 06/23/17 07:23 Intake and Output: 06/23/17 06/23/17 06:59 18:59 Intake Total 780 Balance 780 - Medications Medications: Current Medications Acetaminophen (Tylenol 325mg Tab) 650 mg PO Q6 PRN PRN Reason: Pain, Mild (1-3) Last Admin: 06/23/17 08:16 Dose: 650 mg Apixaban (Eliquis) 5 mg PO BID [facility] Last Admin: 06/22/17 17:52 Dose: 5 mg Aspirin (Aspirin Chewable) 81 mg PO DAILY [facility] Last Admin: 06/22/17 10:17 Dose: 81 mg Dicyclomine HCl (Bentyl) 10 mg PO BID [facility] Last Admin: 06/22/17 17:52 Dose: 10 mg Furosemide (Lasix) 20 mg PO BID [facility] Last Admin: 06/22/17 17:49 Dose: 20 mg Metronidazole (Flagyl) 500 mg in 100 mls @ 100 mls/hr IVPB Q8 [facility] Last Admin: 06/23/17 05:40 Dose: 100 mls/hr Sodium Chloride (Sodium Chloride 0.9%) 1,000 mls @ 60 mls/hr IV .[id number] [facility] Stop: 06/23/17 12:30 Last Admin: 06/22/17 23:27 Dose: 60 mls/hr Losartan Potassium (Cozaar) 25 mg PO DAILY [facility] Last Admin: 06/22/17 10:18 Dose: Not Given Methimazole (Tapazole) 5 mg PO DAILY [facility] Last Admin: 06/22/17 10:17 Dose: 5 mg Metoprolol Succinate (Toprol Xl) 25 mg PO DAILY [facility] Multivitamins (Hexavitamin) 1 tab PO DAILY [facility] Last Admin: 06/22/17 10:17 Dose: 1 tab Prednisone (Prednisone Tab) 5 mg PO DAILY [facility] Last Admin: 06/22/17 10:17 Dose: 5 mg Sodium Chloride (Sodium Chloride Tab) 1 gm PO TID [facility] Last Admin: 06/22/17 17:52 Dose: 1 gm Vancomycin HCl (Vancocin (Oral Or Rectal Use)) 250 mg PO QID [facility] Last Admin: 06/22/17 22:30 Dose: 250 mg - Labs Labs: 06/22/17 07:05 06/23/17 07:35 PT 19.3 SECONDS (9.7-12.2) H 06/15/17 13:26 INR 1.7 06/15/17 13:26 APTT 34 SECONDS (21-34) 06/15/17 13:26 - Constitutional Appears: No Acute Distress - Eye Exam Eye Exam: Normal appearance - ENT Exam ENT Exam: Mucous Membranes Moist ((+) pale conjunctiva) - Cardiovascular Exam Cardiovascular Exam: REGULAR RHYTHM, +S1, +S2. absent: Gallop, JVD - GI/Abdominal Exam GI & Abdominal Exam: Soft. absent: Tenderness, Mass - Extremities Exam Extremities Exam: Full ROM, Normal Capillary Refill, Pedal Edema. absent: Joint Swelling Assessment and Plan - Assessment and Plan (Free Text) Plan: C diff infection; Ac Bronchitis CAD, CHF, recent PE, Myelodysplastic syndrome Antiimicrobial as per ID Cont supportive care
--- NOTE | 2017-06-23 10:00 | PN ---
DATE: 06/20/2017 FOLLOWUP RENAL CONSULTATION REQUESTED BY: Deion Marie MD REASON FOR FOLLOWUP: Hyponatremia. SUBJECTIVE: Mrs. Diana Espino is a 77-year-old elderly Citizen Of [place] female with a past medical history significant for hypertension, atrial fibrillation, pulmonary embolism, large distal thrombus in RCA, pneumonia, hyponatremia, myelodysplastic syndrome, status post multiple transfusions, who was admitted initially with shortness of breath and now complaints of diarrhea. Stool for C. diff toxin is again positive. The patient is on a p.o. vancomycin. The patient is feeling slightly better today, had a bowel movement x1 only. No chest pain. No palpitations. No fever. No cough. No abdominal pain. No nausea, vomiting, or diarrhea. OBJECTIVE: VITAL SIGNS: As follows, blood pressure 111/63, pulse 104, respirations 20, temperature 97.6, saturation 96%. Height 5 feet 2 inches and weight is 123 pounds. GENERAL: Mrs. Espino is a 77-year-old elderly female, moderately built, moderately nourished, not in distress. HEENT: Pupils are normal, reactive to light and accommodation. Conjunctivae pink. Sclerae anicteric. Tongue is moist. Trachea is midline. LUNGS: Symmetric on both sides. Bilateral breath sounds present. Occasional basilar crackles present, left more than the right. CVS: [place] at the fifth intercostal space, midclavicular area. S1 and S2 audible. No murmur or gallop. ABDOMEN: Normal in appearance. Soft, tympanitic. No guarding. No hepatosplenomegaly. 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 Nonfocal neuro examination. Cranial nerves II through XII grossly intact. Sensory and motor system are within normal limits. EXTREMITIES: No cyanosis, no clubbing, and no edema. CURRENT MEDICATIONS: Include as follows, aspirin 81 mg daily, Cozaar 25 mg p.o. daily, DuoNeb inhaler q.6 hours, Eliquis 5 mg p.o. b.i.d., multivitamin 1 tablet daily, Norvasc 5 mg daily, prednisone 10 mg p.o. daily, methimazole 5 mg p.o. daily, Toprol-XL 50 mg p.o. b.i.d., Tylenol, and vancomycin 250 mg p.o. q.i.d. LABORATORY DATA: Include as follows, as of 06/20/2017, WBCs 5, hemoglobin 8.7, hematocrit is 26.3, platelets 423. Sodium 130, potassium is 4.1, chloride 94, CO2 of 27, BUN 24, creatinine 0.5, glucose is 142, calcium 8.2. Total bilirubin is 0.8, AST 25, ALT 52, alkaline phosphatase 71, total protein 5.6, albumin is 2.4. IMPRESSION: In summary, Mrs. Espino is a 77-year-old elderly Citizen Of [place] female with history of hypertension, atrial fibrillation, pulmonary embolism, pneumonia, status post cardiac catheterization consistent with thrombus in the distal right coronary artery, unable to place stent or angioplasty due to large right coronary artery and hyponatremia, being treated for C. diff colitis again. 1. Hyponatremia, cannot rule out syndrome of inappropriate antidiuretic hormone secretion. 2. Pneumonia. 3. Clostridium difficile colitis. 4. Hypertension. 5. Anemia secondary to myelodysplastic syndrome. PLAN: Restrict fluids to 1 liter per day and we will add sodium chloride tablet 1 gm p.o. b.i.d. We will follow with you. Thank you for allowing me to participate in your patient's care. Continue vancomycin p.o. Rehan Dos Santos MD
[2017-06-23] MEDS: Multiple Vitamins Tab PO SCH (10:01)
[2017-06-23] MEDS: Vancomycin 125 MG/5 ML SOLN (ORAL/RECTAL) PO SCH ×4 (10:02→21:42)
[2017-06-23] MEDS: methIMAzole 5 MG TAB PO SCH (10:02)
[2017-06-23] MEDS ORDERED: Sodium Chloride 0.9% 300 ML IV ONE (10:17)
[2017-06-23] MEDS: Metoprolol Succinate 25 mg XL Tab PO SCH (10:20)
--- NOTE | 2017-06-23 10:22 | CP.PCM.PN ---
Subjective - Date & Time of Evaluation Date of Evaluation: 06/23/17 Time of Evaluation: 10:21 - Subjective Subjective: pt is seen and examined, follow up consult is dictated #[id number] d/c fluid restriction hold bp med sfor sbp <130 agree with ivf bolus as per cardiology hold lasix Objective - Vital Signs/Intake and Output Vital Signs (last 24 hours): Temp Pulse Resp BP Pulse Ox 99.5 F 92 H 20 81/43 L 95 06/23/17 09:16 06/23/17 07:23 06/23/17 07:23 06/23/17 10:03 06/23/17 07:23 Intake and Output: 06/23/17 06/23/17 06:59 18:59 Intake Total 780 Balance 780 - Medications Medications: Current Medications Acetaminophen (Tylenol 325mg Tab) 650 mg PO Q6 PRN PRN Reason: Pain, Mild (1-3) Last Admin: 06/23/17 08:16 Dose: 650 mg Apixaban (Eliquis) 5 mg PO BID [facility] Last Admin: 06/23/17 10:01 Dose: 5 mg Aspirin (Aspirin Chewable) 81 mg PO DAILY [facility] Last Admin: 06/23/17 10:01 Dose: 81 mg Dicyclomine HCl (Bentyl) 10 mg PO BID [facility] Last Admin: 06/23/17 10:01 Dose: 10 mg Epoetin Woody (Procrit) 10,000 unit SC TTS [facility] Furosemide (Lasix) 20 mg PO BID [facility] Last Admin: 06/23/17 10:03 Dose: Not Given Metronidazole (Flagyl) 500 mg in 100 mls @ 100 mls/hr IVPB Q8 [facility] Last Admin: 06/23/17 05:40 Dose: 100 mls/hr Sodium Chloride (Sodium Chloride 0.9%) 300 mls @ 600 mls/hr IV .Q30M ONE Stop: 06/23/17 10:46 Losartan Potassium (Cozaar) 25 mg PO DAILY [facility] Last Admin: 06/23/17 10:03 Dose: Not Given Methimazole (Tapazole) 5 mg PO DAILY [facility] Last Admin: 06/23/17 10:02 Dose: 5 mg Metoprolol Succinate (Toprol Xl) 25 mg PO DAILY [facility] Multivitamins (Hexavitamin) 1 tab PO DAILY [facility] Last Admin: 06/23/17 10:01 Dose: 1 tab Prednisone (Prednisone Tab) 5 mg PO DAILY [facility] Last Admin: 06/23/17 10:01 Dose: 5 mg Sodium Chloride (Sodium Chloride Tab) 1 gm PO TID [facility] Last Admin: 06/23/17 10:01 Dose: 1 gm Vancomycin HCl (Vancocin (Oral Or Rectal Use)) 250 mg PO QID [facility] Last Admin: 06/23/17 10:02 Dose: 250 mg - Labs Labs: 06/22/17 07:05 06/23/17 07:35 PT 19.3 SECONDS (9.7-12.2) H 06/15/17 13:26 INR 1.7 06/15/17 13:26 APTT 34 SECONDS (21-34) 06/15/17 13:26
--- NOTE | 2017-06-23 11:12 | CP.PCM.PN ---
Subjective - Date & Time of Evaluation Date of Evaluation: 06/23/17 Time of Evaluation: 08:00 - Subjective Subjective: awake alert denies chest pain + fever bp is low NAD Objective - Vital Signs/Intake and Output Vital Signs (last 24 hours): Temp Pulse Resp BP Pulse Ox 99.5 F 92 H 20 81/43 L 95 06/23/17 09:16 06/23/17 07:23 06/23/17 07:23 06/23/17 10:03 06/23/17 07:23 Intake and Output: 06/23/17 06/23/17 06:59 18:59 Intake Total 780 Balance 780 - Medications Medications: Current Medications Acetaminophen (Tylenol 325mg Tab) 650 mg PO Q6 PRN PRN Reason: Pain, Mild (1-3) Last Admin: 06/23/17 08:16 Dose: 650 mg Apixaban (Eliquis) 5 mg PO BID [facility] Last Admin: 06/23/17 10:01 Dose: 5 mg Aspirin (Aspirin Chewable) 81 mg PO DAILY [facility] Last Admin: 06/23/17 10:01 Dose: 81 mg Dicyclomine HCl (Bentyl) 10 mg PO BID [facility] Last Admin: 06/23/17 10:01 Dose: 10 mg Epoetin Woody (Procrit) 10,000 unit SC TTS [facility] Furosemide (Lasix) 20 mg PO BID [facility] Last Admin: 06/23/17 10:03 Dose: Not Given Metronidazole (Flagyl) 500 mg in 100 mls @ 100 mls/hr IVPB Q8 [facility] Last Admin: 06/23/17 05:40 Dose: 100 mls/hr Losartan Potassium (Cozaar) 25 mg PO DAILY [facility] Last Admin: 06/23/17 10:03 Dose: Not Given Methimazole (Tapazole) 5 mg PO DAILY [facility] Last Admin: 06/23/17 10:02 Dose: 5 mg Metoprolol Succinate (Toprol Xl) 25 mg PO DAILY [facility] Last Admin: 06/23/17 10:20 Dose: Not Given Multivitamins (Hexavitamin) 1 tab PO DAILY [facility] Last Admin: 06/23/17 10:01 Dose: 1 tab Prednisone (Prednisone Tab) 5 mg PO DAILY [facility] Last Admin: 06/23/17 10:01 Dose: 5 mg Sodium Chloride (Sodium Chloride Tab) 1 gm PO TID [facility] Last Admin: 06/23/17 10:01 Dose: 1 gm Vancomycin HCl (Vancocin (Oral Or Rectal Use)) 250 mg PO QID [facility] Last Admin: 06/23/17 10:02 Dose: 250 mg - Labs Labs: 06/22/17 07:05 06/23/17 07:35 PT 19.3 SECONDS (9.7-12.2) H 06/15/17 13:26 INR 1.7 06/15/17 13:26 APTT 34 SECONDS (21-34) 06/15/17 13:26 - Constitutional Appears: Non-toxic, Chronically Ill - Head Exam Head Exam: NORMOCEPHALIC - Eye Exam Eye Exam: PERRL - ENT Exam ENT Exam: Mucous Membranes Dry - Neck Exam Neck Exam: absent: Lymphadenopathy - Respiratory Exam Respiratory Exam: Decreased Breath Sounds - Cardiovascular Exam Cardiovascular Exam: REGULAR RHYTHM - GI/Abdominal Exam GI & Abdominal Exam: Soft. absent: Tenderness - Rectal Exam Rectal Exam: Deferred - Exam Exam: NORMAL INSPECTION - Extremities Exam Extremities Exam: absent: Pedal Edema - Back Exam Back Exam: absent: CVA tenderness (L), CVA tenderness (R) Assessment and Plan (1) CHF (congestive heart failure) Status: Acute (2) Rapid atrial fibrillation Status: Acute (3) CAD (coronary artery disease) Status: Acute (4) Cough Status: Acute (5) Dehydration Status: Acute (6) Hyponatremia Status: Acute (7) Lower respiratory infection Status: Acute (8) Myelodysplasia (myelodysplastic syndrome) Status: Acute - Assessment and Plan (Free Text) Assessment: cdiff with fever MDS iv rx reordered cultures sent
--- NOTE | 2017-06-23 18:16 | CP.PCM.PN ---
Subjective - Date & Time of Evaluation Date of Evaluation: 06/23/17 Time of Evaluation: 11:30 - Subjective Subjective: Patient seen and examined at the [facility]. Patient reports feeling better. She denies any shortness of breath, wheezing, cough, or chest pain. She has been tolerating her medications. Assessment/Plan Shortness of Breath -continue nebulizer treatment -oral steroids -sputum gram stain negative -flu negative C Diff Infection -febrile - antibiotics per ID Objective - Vital Signs/Intake and Output Vital Signs (last 24 hours): Temp Pulse Resp BP Pulse Ox 97.3 F L 95 H 20 90/54 L 96 06/23/17 16:06 06/23/17 16:06 06/23/17 16:06 06/23/17 16:06 06/23/17 16:06 Intake and Output: 06/23/17 06/23/17 06:59 18:59 Intake Total 780 730 Balance 780 730 - Medications Medications: Current Medications Acetaminophen (Tylenol 325mg Tab) 650 mg PO Q6 PRN PRN Reason: Pain, Mild (1-3) Last Admin: 06/23/17 08:16 Dose: 650 mg Apixaban (Eliquis) 5 mg PO BID [facility] Last Admin: 06/23/17 17:36 Dose: 5 mg Aspirin (Aspirin Chewable) 81 mg PO DAILY [facility] Last Admin: 06/23/17 10:01 Dose: 81 mg Dicyclomine HCl (Bentyl) 10 mg PO BID [facility] Last Admin: 06/23/17 17:35 Dose: 10 mg Epoetin Woody (Procrit) 10,000 unit SC TTS [facility] Furosemide (Lasix) 20 mg PO BID [facility] Last Admin: 06/23/17 10:03 Dose: Not Given Metronidazole (Flagyl) 500 mg in 100 mls @ 100 mls/hr IVPB Q8 [facility] Last Admin: 06/23/17 14:08 Dose: 100 mls/hr Losartan Potassium (Cozaar) 25 mg PO DAILY [facility] Last Admin: 06/23/17 10:03 Dose: Not Given Methimazole (Tapazole) 5 mg PO DAILY [facility] Last Admin: 06/23/17 10:02 Dose: 5 mg Metoprolol Succinate (Toprol Xl) 25 mg PO DAILY [facility] Last Admin: 06/23/17 10:20 Dose: Not Given Multivitamins (Hexavitamin) 1 tab PO DAILY [facility] Last Admin: 06/23/17 10:01 Dose: 1 tab Prednisone (Prednisone Tab) 5 mg PO DAILY [facility] Last Admin: 06/23/17 10:01 Dose: 5 mg Sodium Chloride (Sodium Chloride Tab) 1 gm PO TID [facility] Last Admin: 06/23/17 17:35 Dose: 1 gm Vancomycin HCl (Vancocin (Oral Or Rectal Use)) 250 mg PO QID [facility] Last Admin: 06/23/17 17:55 Dose: 250 mg - Labs Labs: 06/22/17 07:05 06/23/17 07:35 PT 19.3 SECONDS (9.7-12.2) H 06/15/17 13:26 INR 1.7 06/15/17 13:26 APTT 34 SECONDS (21-34) 06/15/17 13:26 Assessment and Plan (1) SOB (shortness of breath) Status: Acute (2) Myelodysplasia (myelodysplastic syndrome) Status: Acute
[2017-06-24] MEDS: metroNIDAZOLE IV 500 mg/100 ml 500 MG/100 ML BAG IVPB SCH ×3 (05:01→22:00)
--- NOTE | 2017-06-24 06:41 | PN ---
DATE: FOLLOWUP RENAL CONSULTATION LOCATION: The patient is located in room 551, bed B. REQUESTED BY: Dr. Deion Marie. REASON FOR FOLLOWUP: Hyponatremia. SUBJECTIVE: Mrs. Espino is a 77 years old elderly [place] female with past medical history significant for hypertension, myelodysplastic syndrome, anemia, CHF, AFib, pulmonary embolism, on anticoagulation, and also thrombus in the distal RCA, unable to do thrombectomy or angioplasty, continuing medical management. The patient is also being treated for C. diff colitis. The patient is feeling dizzy last night and also complaining of fluid bowel movement x4 last night. The patient was hypertensive this morning and on IV fluids normal saline at 60 mL/hr. No chest pain, no palpitation. No fever. No cough. OBJECTIVE: VITAL SIGNS: As follows: This morning, blood pressure 91/43, pulse 117, respirations 20, and T max 102.4. GENERAL: On physical exam, Mrs. Espino is a 77 years elderly female, moderately built, moderately nourished, not in acute distress. HEENT: Pupils are normal and reactive to light and accommodation. Conjunctivae pink. Sclerae anicteric. Tongue is moist. Trachea is midline. LUNGS: Symmetric on both sides. Bilateral breath sounds present. Bilateral basal crackles present. CVS: [place] at the fifth intercostal space, midclavicular line. S1, S2 audible. No murmur or gallop. ABDOMEN: Normal in appearance. Soft, tympanic. No guarding. No hepatosplenomegaly. 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 Nonfocal neuro examination. Cranial nerves II through XII grossly intact. Sensory and motor system within normal limits. EXTREMITIES: No cyanosis, no clubbing, no edema. LABORATORY DATA: Include as follows: As of 06/23/2017, sodium 130, potassium 3.7, chloride of 96, CO2 of 27, BUN 22 and creatinine 0.5, glucose 93, calcium 7.7, and procalcitonin is 1.05. Lactic acid is 1.5 and stool C. diff toxin is negative as of 06/23/2017. CURRENT MEDICATIONS: Include as follows: Aspirin 81 mg daily, Bentyl 10 mg p.o. b.i.d., losartan on hold, Eliquis 5 mg p.o. b.i.d., Flagyl 500 mg IV q.8 hours, multivitamin 1 tablet daily, Lasix on hold and prednisone 5 mg p.o. daily, Procrit 10,000 units 3 times a week and IV fluids normal saline at 60 mL/hour, sodium chloride tablet 1 gm p.o. t.i.d., Tapazole 5 mg p.o. daily, metoprolol on hold, and Tylenol and vancomycin 250 mg p.o. q.i.d. Other laboratory data as of 06/22/2017, blood culture x2 are negative day one and sputum culture is pending as of 06/22/2017. IMPRESSION: In summary, Mrs. Espino is a 77 years elderly female with a past medical history significant for hypertension, congestive heart failure, atrial fibrillation, pulmonary embolism, myelodysplastic syndrome, anemia, hyponatremia, hyperthyroidism, Clostridium difficile colitis, hypotension with a persistent diarrhea. 1. Hyponatremia. Serum sodium is within normal limits. 2. Prerenal azotemia. 3. Clostridium difficile colitis with persistent diarrhea. 4. Myelodysplastic syndrome. 5. Anemia. Continue Flagyl and vancomycin and continue sodium chloride tablet. Continue IV fluids, normal saline 60 mL/hour and bolus as per the cnc supervisor 300 mL normal saline and continue to monitor vital signs, and we will order blood pressure medicine for systolic blood pressure less than 130. Overall prognosis is guarded. Thank you for allowing me to participate in your patient's care. Rehan Dos Santos MD
[2017-06-24 08:18] LABS: HEMOGLOBIN 8.1 g/dL (11.0-16.0); MEAN CELL VOLUME 86.9 fL (81.0-99.0); MEAN CORPUSCULAR HEMOGLOBIN 28.8 pg (27.0-31.0); MEAN CORPUSCULAR HGB CONC 33.2 g/dL (33.0-37.0); RBC 2.82 Mil/uL (3.80-5.20); WHITE BLOOD COUNT 7.5 K/uL (4.8-10.8)
[2017-06-24 08:48] LABS: BLOOD UREA NITROGEN 22 mg/dL (7-17); CALCIUM 7.8 mg/dl (8.6-10.4); GFR AFRICAN-AMERICAN > 60; GFR NON-AFRICAN AMERICAN > 60
[2017-06-24] MEDS ORDERED: Potassium Chloride 20 mEq/15 ml LIQ UD PO STA ×2 (08:59→10:42)
--- NOTE | 2017-06-24 09:02 | CP.PCM.PN ---
Subjective - Date & Time of Evaluation Date of Evaluation: 06/24/17 Time of Evaluation: 09:01 - Subjective Subjective: pt is seen and examined, follow up consult is dictated #[id number] Objective - Vital Signs/Intake and Output Vital Signs (last 24 hours): Temp Pulse Resp BP Pulse Ox 98.3 F 89 20 131/94 H 97 06/24/17 07:21 06/24/17 07:21 06/24/17 07:21 06/24/17 07:21 06/24/17 07:21 Intake and Output: 06/24/17 06/24/17 06:59 18:59 Intake Total 230 Balance 230 - Medications Medications: Current Medications Acetaminophen (Tylenol 325mg Tab) 650 mg PO Q6 PRN PRN Reason: Pain, Mild (1-3) Last Admin: 06/23/17 08:16 Dose: 650 mg Apixaban (Eliquis) 5 mg PO BID [facility] Last Admin: 06/23/17 17:36 Dose: 5 mg Aspirin (Aspirin Chewable) 81 mg PO DAILY [facility] Last Admin: 06/23/17 10:01 Dose: 81 mg Dicyclomine HCl (Bentyl) 10 mg PO BID [facility] Last Admin: 06/23/17 17:35 Dose: 10 mg Epoetin Woody (Procrit) 10,000 unit SC TTS [facility] Furosemide (Lasix) 20 mg PO BID [facility] Last Admin: 06/23/17 10:03 Dose: Not Given Metronidazole (Flagyl) 500 mg in 100 mls @ 100 mls/hr IVPB Q8 [facility] Last Admin: 06/24/17 05:01 Dose: 100 mls/hr Losartan Potassium (Cozaar) 25 mg PO DAILY [facility] Last Admin: 06/23/17 10:03 Dose: Not Given Methimazole (Tapazole) 5 mg PO DAILY [facility] Last Admin: 06/23/17 10:02 Dose: 5 mg Metoprolol Succinate (Toprol Xl) 25 mg PO DAILY [facility] Last Admin: 06/23/17 10:20 Dose: Not Given Multivitamins (Hexavitamin) 1 tab PO DAILY [facility] Last Admin: 06/23/17 10:01 Dose: 1 tab Potassium Chloride (Potassium Chloride Oral Soln) 40 meq PO STAT [facility] Stop: 06/24/17 09:00 Prednisone (Prednisone Tab) 5 mg PO DAILY [facility] Last Admin: 06/23/17 10:01 Dose: 5 mg Sodium Chloride (Sodium Chloride Tab) 1 gm PO TID [facility] Last Admin: 06/23/17 17:35 Dose: 1 gm Vancomycin HCl (Vancocin (Oral Or Rectal Use)) 250 mg PO QID [facility] Last Admin: 06/23/17 21:42 Dose: 250 mg - Labs Labs: 06/24/17 07:51 06/24/17 07:51 PT 19.3 SECONDS (9.7-12.2) H 06/15/17 13:26 INR 1.7 06/15/17 13:26 APTT 34 SECONDS (21-34) 06/15/17 13:26
--- NOTE | 2017-06-24 09:23 | CP.PCM.PN ---
Subjective - Date & Time of Evaluation Date of Evaluation: 06/24/17 Time of Evaluation: 08:20 - Subjective Subjective: Pt not sleeping well , dec diarrhea 2X/d but swollen. (+) Episode of hypotension, (+) hyponatremia persistent No CP, no SOB, states cough is better, (+) starts shaking all over yesterday as per pt but relieved w/ Tylenol Objective - Vital Signs/Intake and Output Vital Signs (last 24 hours): Temp Pulse Resp BP Pulse Ox 98.3 F 89 20 131/94 H 97 06/24/17 07:21 06/24/17 07:21 06/24/17 07:21 06/24/17 07:21 06/24/17 07:21 Intake and Output: 06/24/17 06/24/17 06:59 18:59 Intake Total 230 Balance 230 - Medications Medications: Current Medications Acetaminophen (Tylenol 325mg Tab) 650 mg PO Q6 PRN PRN Reason: Pain, Mild (1-3) Last Admin: 06/23/17 08:16 Dose: 650 mg Apixaban (Eliquis) 5 mg PO BID [facility] Last Admin: 06/23/17 17:36 Dose: 5 mg Aspirin (Aspirin Chewable) 81 mg PO DAILY [facility] Last Admin: 06/23/17 10:01 Dose: 81 mg Dicyclomine HCl (Bentyl) 10 mg PO BID [facility] Last Admin: 06/23/17 17:35 Dose: 10 mg Epoetin Woody (Procrit) 10,000 unit SC TTS [facility] Furosemide (Lasix) 20 mg PO BID [facility] Last Admin: 06/23/17 10:03 Dose: Not Given Metronidazole (Flagyl) 500 mg in 100 mls @ 100 mls/hr IVPB Q8 [facility] Last Admin: 06/24/17 05:01 Dose: 100 mls/hr Losartan Potassium (Cozaar) 25 mg PO DAILY [facility] Last Admin: 06/23/17 10:03 Dose: Not Given Methimazole (Tapazole) 5 mg PO DAILY [facility] Last Admin: 06/23/17 10:02 Dose: 5 mg Metoprolol Succinate (Toprol Xl) 25 mg PO DAILY [facility] Last Admin: 06/23/17 10:20 Dose: Not Given Multivitamins (Hexavitamin) 1 tab PO DAILY [facility] Last Admin: 06/23/17 10:01 Dose: 1 tab Potassium Chloride (K-Dur 20 Meq Er Tab) 20 meq PO BID [facility] Stop: 06/25/17 10:00 Prednisone (Prednisone Tab) 5 mg PO DAILY [facility] Last Admin: 06/23/17 10:01 Dose: 5 mg Sodium Chloride (Sodium Chloride Tab) 1 gm PO TID [facility] Last Admin: 06/23/17 17:35 Dose: 1 gm Vancomycin HCl (Vancocin (Oral Or Rectal Use)) 250 mg PO QID [facility] Last Admin: 06/23/17 21:42 Dose: 250 mg - Labs Labs: 06/24/17 07:51 06/24/17 07:51 PT 19.3 SECONDS (9.7-12.2) H 06/15/17 13:26 INR 1.7 06/15/17 13:26 APTT 34 SECONDS (21-34) 06/15/17 13:26 - Constitutional Appears: No Acute Distress - Eye Exam Eye Exam: Normal appearance - ENT Exam ENT Exam: Mucous Membranes Moist - Neck Exam Neck Exam: Full ROM. absent: Lymphadenopathy, Thyromegaly - Respiratory Exam Respiratory Exam: Decreased Breath Sounds, Rhonchi. absent: Rales, Wheezes - Cardiovascular Exam Cardiovascular Exam: REGULAR RHYTHM, +S1, +S2, Murmur. absent: Gallop, JVD - GI/Abdominal Exam GI & Abdominal Exam: Soft. absent: Tenderness, Mass - Extremities Exam Extremities Exam: Full ROM, Pedal Edema. absent: Calf Tenderness, Joint Swelling Assessment and Plan - Assessment and Plan (Free Text) Assessment: Tremors? ; c diff infection HTN, Myelodysplasia, recent PE Cont meds/ Recall Alejandro Neuro eval
[2017-06-24] MEDS ORDERED: Potassium Chloride 20 mEq ER Tab PO SCH (10:00)
[2017-06-24 10:39] LABS: EOS # 0.1 K/uL (0.0-0.7); LYMPH # 1.1 K/uL (1.0-4.3); MONO # 0.7 K/uL (0.0-0.8); NEUT # 5.7 K/uL (1.8-7.0)
[2017-06-24] MEDS ORDERED: Potassium Chloride 20 mEq ER Tab PO ONE (11:15)
[2017-06-24] MEDS: methIMAzole 5 MG TAB PO SCH (11:18)
[2017-06-24] MEDS: Epoetin Alfa 10,000 unit/ml Dialysis SC SCH (11:19)
[2017-06-24] MEDS: Metoprolol Succinate 25 mg XL Tab PO SCH (11:19)
[2017-06-24] MEDS: Vancomycin 125 MG/5 ML SOLN (ORAL/RECTAL) PO SCH ×4 (11:19→21:55)
[2017-06-24] MEDS: Multiple Vitamins Tab PO SCH (11:19)
--- NOTE | 2017-06-24 12:53 | VASCLAB ---
PROCEDURE: Bilateral Lower Extremity Venous Duplex Exam. HISTORY: Lower extremity edema PRIORS: 05/24/2017, normal. TECHNIQUE: Bilateral common femoral, femoral, popliteal and posterior tibial, peroneal and great saphenous veins were evaluated. Flow was assessed with color Doppler, compressibility, assessment of phasic flow and augmentation response. Report prepared by CHUCKIE Oropeza FINDINGS: RIGHT: 1. Common Femoral Vein: 1.1. Compressibility - Fully compressible: Thrombus - None : Flow - Phasic: Augmentation -Normal: Reflux - None. 2. Femoral Vein: 2.1. Compressibility - Fully compressible: Thrombus - None : Flow - Phasic: Augmentation -Normal: Reflux - None. 3. Popliteal Vein: 3.1. Compressibility - Fully compressible: Thrombus - None : Flow - Phasic: Augmentation -Normal: Reflux - None. 4. Posterior Tibial Vein: 4.1. Compressibility - Fully compressible: Thrombus - None: Flow - Phasic: Augmentation -Normal: Reflux - None. 5. Peroneal Vein: 5.1. Compressibility - Fully compressible: Thrombus - None: Flow - Phasic: Augmentation -Normal: Reflux - None. 6. Great Saphenous Vein: 6.1. Not visualized LEFT: 1. Common Femoral Vein: 1.1. Compressibility - Fully compressible: Thrombus - None: Flow - Phasic: Augmentation -Normal: Reflux - None. 2. Femoral Vein: 2.1. Compressibility - Fully compressible: Thrombus - None: Flow - Phasic: Augmentation -Normal: Reflux - None. 3. Popliteal Vein: 3.1. Compressibility - Fully compressible: Thrombus - None : Flow - Phasic: Augmentation -Normal: Reflux - None. 4. Posterior Tibial Vein: 4.1. Compressibility - Fully compressible: Thrombus - None: Flow - Phasic: Augmentation -Normal: Reflux - None. 5. Peroneal Vein: 5.1. Compressibility - Fully compressible: Thrombus - None: Flow - Phasic: Augmentation -Normal: Reflux - None. 6. Great Saphenous Vein: 6.1. Not visualized OTHER FINDINGS: Right: None significant. Left: None significant. IMPRESSION: Right: No evidence of deep or superficial vein thrombosis of the right lower extremity. Normal valve function noted of the right side. Left: No evidence of deep or superficial vein thrombosis of the left lower extremity. Normal valve function noted of the left side.
[2017-06-24] MEDS ORDERED: Sodium Chloride 0.9% 1,000 ML IV ONE (14:00)
[2017-06-24] MEDS ORDERED: Sodium Chloride 0.9% 250 ML IV ONE (14:38)
[2017-06-24 16:15] LABS: MEAN CELL VOLUME 85.9 fL (81.0-99.0); MEAN CORPUSCULAR HEMOGLOBIN 28.7 pg (27.0-31.0); MEAN CORPUSCULAR HGB CONC 33.4 g/dL (33.0-37.0); MEAN PLATELET VOLUME 10.2 fL (7.2-11.7); RBC 2.25 Mil/uL (3.80-5.20); RED CELL DISTRIBUTION WIDTH 16.7 % (11.5-14.5); WHITE BLOOD COUNT 10.1 K/uL (4.8-10.8)
[2017-06-24 16:21] LABS: HEMOGLOBIN 6.5 g/dL (11.0-16.0)
[2017-06-24] MEDS ORDERED: Iohexol 240 (50 ml) PO ONE (19:01)
[2017-06-24] MEDS ORDERED: Iodixanol 320 mg/ml 150 ml Bottle IV ONE (19:25)
--- NOTE | 2017-06-24 21:59 | CON ---
DATE: HISTORY OF PRESENT ILLNESS: This is a 77-year-old female with a past medical history of pulmonary embolism in April and came with pneumonia, and the patient had cardiac cath and was treated medically at home, and she felt weak, shortness of breath, and sent back to the emergency room here, recently discharged from [facility] and admitted here in [facility]. PAST MEDICAL HISTORY: Coronary artery disease and gastritis and had a cardiac cath. ALLERGIES: NO KNOWN DRUG ALLERGIES. PHYSICAL EXAMINATION: HEENT: Normocephalic, atraumatic. NECK: Supple. NEUROLOGIC: Awake, oriented to self and place. Cranial nerves II through XII are tested. Pupils reactive. EOMs intact. Visual filed full. No facial asymmetry. Tongue midline. Motor examination: Moves all the extremities equally. Some shakiness was noted in both upper extremities. Deep tendon reflexes 1+. Both plantars are downgoing. Sensory appears intact. Cerebellar and gait, deferred. IMPRESSION: Tremors of both the upper extremities and possibly secondary to anxiety and possibly essential tremor, and we will order a CAT scan of the head without contrast and give some Mysoline 1 tablet p.o. nightly. Sky Underwood MD cc:
--- NOTE | 2017-06-24 22:51 | CP.PCM.CON ---
History of Present Illness - History of Present Illness History of Present Illness: 77-year-old female with past history significant for myelodysplastic syndrome, hypertension, pulmonary embolism, C. difficile colitis, hyponatremia,cAD,Atrial fibrillation,CHF admitted 06/15/17 with shortness of breath and fever. ICU evaluation requested for anemia. with Hb of 6.5 (drop from 8.1 earlier today) patients daughter and RN states that patient had a brown.loose BM about 3 hrs ago.Patient feels better today,denies chest pain,palpitations.She was able to walk today. No Orthostatic changes in BP or pulse Metoprolol and losartan on hold due to low BP since yesterday Review of Systems - Constitutional Constitutional: Weakness. absent: Fever - EENT Eyes: absent: Irritation, Itchy Eyes Ears: absent: Ear Pain Nose/Mouth/Throat: absent: Sore Throat, Neck Mass - Cardiovascular Cardiovascular: Leg Edema. absent: Chest Pain, Rapid Heart Rate - Respiratory Respiratory: absent: Cough, Dyspnea - Gastrointestinal Gastrointestinal: absent: Abdominal Pain, Melena - Genitourinary Genitourinary: absent: Dysuria, Urinary Frequency - Musculoskeletal Musculoskeletal: absent: Stiffness - Integumentary Integumentary: absent: Bleeding Lesions - Neurological Neurological: Weakness. absent: Tingling - Hematologic/Lymphatic Hematologic: absent: Easy Bruising Past Patient History - Infectious Disease Hx of Infectious Diseases: None - Past Medical History & Family History Past Medical History?: Yes - Past Social History Smoking Status: Never Smoked Home Situation {Lives}: With Family - CARDIAC Hx Congestive Heart Failure: Yes Hx Hypercholesterolemia: Yes Hx Hypertension: Yes - PULMONARY Hx Pneumonia: Yes Hx Pulmonary Embolism: Yes - NEUROLOGICAL Hx Neurological Disorder: No - HEENT Hx HEENT Problems: No - RENAL Hx Chronic Kidney Disease: No - ENDOCRINE/METABOLIC Hx Hypothyroidism: Yes - HEMATOLOGICAL/ONCOLOGICAL Hx Anemia: Yes - INTEGUMENTARY Hx Dermatological Problems: No - MUSCULOSKELETAL/RHEUMATOLOGICAL Hx Musculoskeletal Disorders: Yes Hx Falls: Yes - GASTROINTESTINAL Hx Gastritis: Yes - GENITOURINARY/GYNECOLOGICAL Hx Genitourinary Disorders: No - PSYCHIATRIC Hx Substance Use: No - SURGICAL HISTORY Hx Surgeries: Yes Hx Cardiac Catheterization: Yes (2017) - ANESTHESIA Hx Anesthesia: No Hx Anesthesia Reactions: No Hx Malignant Hyperthermia: No Meds Allergies/Adverse Reactions: Allergies Allergy/AdvReac Type Severity Reaction Status Date / Time No Known Allergies Allergy Verified 06/15/17 12:10 - Medications Medications: Current Medications Acetaminophen (Tylenol 325mg Tab) 650 mg PO Q6 PRN PRN Reason: Pain, Mild (1-3) Last Admin: 06/24/17 11:16 Dose: 650 mg Apixaban (Eliquis) 5 mg PO BID [facility] Last Admin: 06/24/17 11:18 Dose: 5 mg Aspirin (Aspirin Chewable) 81 mg PO DAILY [facility] Last Admin: 06/24/17 11:18 Dose: 81 mg Dicyclomine HCl (Bentyl) 10 mg PO BID [facility] Last Admin: 06/24/17 18:02 Dose: 10 mg Epoetin Woody (Procrit) 10,000 unit SC TTS [facility] Last Admin: 06/24/17 11:19 Dose: 10,000 unit Furosemide (Lasix) 20 mg PO BID [facility] Last Admin: 06/23/17 10:03 Dose: Not Given Furosemide (Lasix) 20 mg IVP ONCE PRN PRN Reason: Shortness of Breath Last Admin: 06/24/17 20:19 Dose: 20 mg Furosemide (Lasix) 20 mg IVP ONCE PRN PRN Reason: Shortness of Breath Metronidazole (Flagyl) 500 mg in 100 mls @ 100 mls/hr IVPB Q8 [facility] Last Admin: 06/24/17 22:00 Dose: 100 mls/hr Fluconazole (Diflucan Iv 200 Mg/100 Ml Ns) 100 mls @ 100 mls/hr IVPB DAILY [facility] Losartan Potassium (Cozaar) 25 mg PO DAILY [facility] Last Admin: 06/23/17 10:03 Dose: Not Given Methimazole (Tapazole) 5 mg PO DAILY [facility] Last Admin: 06/24/17 11:18 Dose: 5 mg Metoprolol Succinate (Toprol Xl) 25 mg PO DAILY [facility] Last Admin: 06/24/17 11:19 Dose: 25 mg Multivitamins (Hexavitamin) 1 tab PO DAILY [facility] Last Admin: 06/24/17 11:19 Dose: 1 tab Prednisone (Prednisone Tab) 5 mg PO DAILY [facility] Last Admin: 06/24/17 11:19 Dose: 5 mg Primidone (Mysoline) 50 mg PO HS [facility] Sodium Chloride (Sodium Chloride Tab) 1 gm PO TID [facility] Last Admin: 06/24/17 18:02 Dose: 1 gm Vancomycin HCl (Vancocin (Oral Or Rectal Use)) 250 mg PO QID [facility] Last Admin: 06/24/17 21:55 Dose: 250 mg Physical Exam - Constitutional Appears: No Acute Distress - Head Exam Head Exam: ATRAUMATIC, NORMAL INSPECTION, NORMOCEPHALIC - Eye Exam Eye Exam: EOMI, PERRL. absent: Scleral icterus Pupil Exam: NORMAL ACCOMODATION - ENT Exam ENT Exam: Mucous Membranes Moist - Neck Exam Neck exam: Positive for: Normal Inspection - Respiratory Exam Respiratory Exam: Clear to Auscultation Bilateral, NORMAL BREATHING PATTERN - Cardiovascular Exam Cardiovascular Exam: Irregular Rhythm, Systolic Murmur - GI/Abdominal Exam GI & Abdominal Exam: Normal Bowel Sounds, Soft. absent: Tenderness - Extremities Exam Extremities exam: Negative for: calf tenderness - Neurological Exam Neurological exam: Alert, Oriented x3 - Skin Skin Exam: Normal Color, Warm Results - Vital Signs Recent Vital Signs: Last Vital Signs Temp 97.4 F L 06/24/17 22:44 Pulse 71 06/24/17 22:44 Resp 18 06/24/17 22:44 BP 87/49 L 06/24/17 22:44 Pulse Ox 98 06/24/17 17:31 - Labs Result Diagrams: 06/24/17 16:12 06/24/17 07:51 Labs: Laboratory Results - last 24 hr 06/24/17 06/24/17 06/24/17 07:51 07:51 16:12 WBC 7.5 10.1 RBC 2.82 L 2.25 L Hgb 8.1 L 6.5 L* Hct 24.5 L 19.3 L MCV 86.9 85.9 MCH 28.8 28.7 MCHC 33.2 33.4 RDW 17.0 H 16.7 H Plt Count 532 H 485 H MPV 10.0 10.2 Neut % (Auto) 76.0 H Lymph % (Auto) 14.0 L [place] % (Auto) 9.0 Eos % (Auto) 1.0 Baso % (Auto) 0.0 Neut # (Auto) 5.7 Lymph # (Auto) 1.1 [place] # (Auto) 0.7 Eos # (Auto) 0.1 Baso # (Auto) 0.0 Sodium 132 Potassium 3.3 L Chloride 95 L Carbon Dioxide 29 Anion Gap 11 BUN 22 H Creatinine 0.4 L Est GFR ( Amer) > 60 Est GFR (Non-Af Amer) > 60 Random Glucose 104 Calcium 7.8 L Blood Type Antibody Screen Antibody Identification 06/24/17 17:24 WBC RBC Hgb Hct MCV MCH MCHC RDW Plt Count MPV Neut % (Auto) Lymph % (Auto) [place] % (Auto) Eos % (Auto) Baso % (Auto) Neut # (Auto) Lymph # (Auto) [place] # (Auto) Eos # (Auto) Baso # (Auto) Sodium Potassium Chloride Carbon Dioxide Anion Gap BUN Creatinine Est GFR ( Amer) Est GFR (Non-Af Amer) Random Glucose Calcium Blood Type O POSITIVE Antibody Screen Positive Antibody Identification Anti E - Imaging and Cardiology Chest x-ray Status: Image reviewed by me, Report reviewed by me Assessment & Plan - Assessment and Plan (Free Text) Assessment: 1.Anemia- recent drop in hemoglobin no Orthostatic changes continue transfusion monitor Hb,stool for occult blood 2.HTN/CAD/Atrial fibrillation continue current management 3.Myelodysplastic syndrome 4.Hypokalemia f/u with rpt lytes clinically stable at present time ,continue management in telemetry.reconsult for ICU if clinical condition changes
[2017-06-24] MEDS ORDERED: DiphenhydrAMINE 50 mg/ml Inj IVP ONE (23:53)
[2017-06-25] MEDS ORDERED: DiphenhydrAMINE 50 mg/ml Inj IVP STA (01:05)
[2017-06-25] MEDS: metroNIDAZOLE IV 500 mg/100 ml 500 MG/100 ML BAG IVPB SCH ×3 (05:54→22:00)
[2017-06-25 06:40] LABS: EOS # 0.1 K/uL (0.0-0.7); EOS % 1.2 % (0.0-4.0); HEMOGLOBIN 7.5 g/dL (11.0-16.0); LYMPH % 9.7 % (20.0-40.0); MEAN CELL VOLUME 84.8 fL (81.0-99.0); MEAN CORPUSCULAR HEMOGLOBIN 29.7 pg (27.0-31.0); MEAN PLATELET VOLUME 10.3 fL (7.2-11.7); MONO # 0.4 K/uL (0.0-0.8); MONO % 4.1 % (0.0-10.0); NEUT # 8.5 K/uL (1.8-7.0); NRBC % 0.6 % (0.0-2.0); PLATELET COUNT 456 K/uL (130-400); RBC 2.51 Mil/uL (3.80-5.20)
[2017-06-25 07:04] LABS: ALB/GLOB RATIO 0.7 (1.0-2.1); ALBUMIN 2.1 g/dL (3.5-5.0); ALT/SGPT 37 U/L (9-52); AST/SGOT 14 U/L (14-36); BLOOD UREA NITROGEN 22 mg/dL (7-17); CALCIUM 7.5 mg/dl (8.6-10.4); GFR AFRICAN-AMERICAN > 60; GFR NON-AFRICAN AMERICAN > 60
--- NOTE | 2017-06-25 07:06 | PN ---
DATE: 06/24/2017 FOLLOWUP RENAL CONSULTATION LOCATION: The patient is located in room 551, bed B. REQUESTED BY: Deion Marie MD REASON FOR FOLLOWUP: Prerenal azotemia and hyponatremia. HISTORY OF PRESENT ILLNESS: Mrs. Espino is a 77 years old elderly [place] female with a past medical history significant for myelodysplastic syndrome, hypertension, pulmonary embolism, CHF, AFib, PE, was admitted with chief complaints of shortness of breath after discharging from the medical center and found to have hyponatremia and also CHF. The patient is feeling much better, not in distress. Denies any chest pain or palpitation. Denies any nausea or vomiting. PHYSICAL EXAMINATION: VITAL SIGNS: As follows: Blood pressure this morning, blood pressure 131/94, pulse 89, respirations 20, temperature 98.3, saturation 97%. Height 5 feet 2 inches and weight is 124 pounds. HEENT: On physical exam, Mrs. Espino is a 77 years elderly female, moderately built, moderate nourished, not in acute distress with T-max yesterday about 102.4. HEENT: Pupils normal and reactive to light and accommodation. Conjunctivae slightly pale. Sclerae anicteric. Tongue is moist. Trachea is midline. LUNGS: Symmetric on both sides. Bilateral breath sounds present. Occasional basal crackles present. CVS: Helen at the fifth intercostal space, midclavicular line. S1, S2 audible. No murmur or gallop. ABDOMEN: Normal in appearance, soft, tympanitic. No guarding. No hepatosplenomegaly. COMMUNICATIONS OFFICER: The patient is alert, awake, oriented x3. Nonfocal neuro examination. Cranial nerves II through XII grossly intact. Sensory and motor system is within normal limits. EXTREMITIES: No cyanosis, no clubbing. Trace edema in both lower extremities. CURRENT MEDICATIONS: Include as follows: Aspirin 81 mg daily, Bentyl, losartan 25 mg p.o. daily, Diflucan 200 mg daily, Eliquis 5 mg p.o. b.i.d.. Flagyl 500 mg q.8 hours, multivitamin 1 tablet daily, Lasix, primidone 50 mg p.o. at bedtime, prednisone 5 mg p.o. daily, Procrit 10,000 units 3 times a week, and sodium chloride tablet 1 gm p.o. t.i.d., Tapazole and metoprolol on hold, and Tylenol and vancomycin 250 mg p.o. q.i.d. LABORATORY DATA: This morning as follows: WBC 7.5, hemoglobin 8.1, hematocrit is 24.5, platelets 532. Sodium 132, potassium 3.3, chloride 95, CO2 of 29, BUN 22, creatinine 0.4, glucose 104, calcium 7.8. Blood culture as of 06/22/2017, negative day 2 and sputum cultures normal alondra. Urine culture as of 06/22/2017, multiple repeat specimen. Duplex scan of the lower extremities as of 06/24/2017, no evidence of deep vein or superficial thrombosis of right the lower extremity, normal wall function noted on the right side; and the left side, no evidence of deep or superficial thrombosis of the left lower extremity, normal wall function noted on the left side. IMPRESSION: In summary, Mrs. Espino is a 77 years old elderly female with a history of hypertension, myelodysplastic syndrome, pulmonary embolism with thrombus of the distal RCA, on anticoagulation, and being treated for hyponatremia and C. difficile colitis with fever. 1. Prerenal azotemia secondary to steroids. 2. Hyponatremia, cannot rule out syndrome of inappropriate antidiuretic hormone secretion versus secondary to thyroid disorder. PLAN: Continue sodium chloride tablets at this time and rule out sepsis, and followup CBC, BMP. Overall, prognosis is guarded. We will follow with you. Thank you for allowing me to participate in your patient's care. Rehan Dos Santos MD
--- NOTE | 2017-06-25 09:01 | CP.PCM.PN ---
Subjective - Date & Time of Evaluation Date of Evaluation: 06/25/17 Time of Evaluation: 09:00 - Subjective Subjective: Pt 2 bowel movement but inc T tp 104 & dec hg 6.5. (+) SOB w/ effort and minimal cough, no CP, priest palpitation. Fever seems to spike early AM. No n/v, no dysuria Objective - Vital Signs/Intake and Output Vital Signs (last 24 hours): Temp Pulse Resp BP Pulse Ox 100.5 F H 89 20 96/55 L 100 06/25/17 08:32 06/25/17 08:00 06/25/17 07:00 06/25/17 07:00 06/25/17 07:00 Intake and Output: 06/25/17 06/25/17 06:59 18:59 Intake Total 643 Output Total 425 Balance 218 - Medications Medications: Current Medications Acetaminophen (Tylenol 325mg Tab) 650 mg PO Q6 PRN PRN Reason: Pain, Mild (1-3) Last Admin: 06/25/17 04:37 Dose: 650 mg Apixaban (Eliquis) 5 mg PO BID [facility] Last Admin: 06/24/17 11:18 Dose: 5 mg Aspirin (Aspirin Chewable) 81 mg PO DAILY [facility] Last Admin: 06/24/17 11:18 Dose: 81 mg Dicyclomine HCl (Bentyl) 10 mg PO BID [facility] Last Admin: 06/24/17 18:02 Dose: 10 mg Epoetin Woody (Procrit) 10,000 unit SC TTS [facility] Last Admin: 06/24/17 11:19 Dose: 10,000 unit Furosemide (Lasix) 20 mg PO BID [facility] Last Admin: 06/23/17 10:03 Dose: Not Given Furosemide (Lasix) 20 mg IVP ONCE PRN PRN Reason: Shortness of Breath Last Admin: 06/24/17 20:19 Dose: 20 mg Furosemide (Lasix) 20 mg IVP ONCE PRN PRN Reason: Shortness of Breath Metronidazole (Flagyl) 500 mg in 100 mls @ 100 mls/hr IVPB Q8 [facility] Last Admin: 06/25/17 05:54 Dose: 100 mls/hr Fluconazole (Diflucan Iv 200 Mg/100 Ml Ns) 100 mls @ 100 mls/hr IVPB DAILY [facility] Losartan Potassium (Cozaar) 25 mg PO DAILY [facility] Last Admin: 06/23/17 10:03 Dose: Not Given Methimazole (Tapazole) 5 mg PO DAILY [facility] Last Admin: 06/24/17 11:18 Dose: 5 mg Metoprolol Succinate (Toprol Xl) 25 mg PO DAILY [facility] Last Admin: 06/24/17 11:19 Dose: 25 mg Multivitamins (Hexavitamin) 1 tab PO DAILY [facility] Last Admin: 06/24/17 11:19 Dose: 1 tab Prednisone (Prednisone Tab) 5 mg PO DAILY [facility] Last Admin: 06/24/17 11:19 Dose: 5 mg Primidone (Mysoline) 50 mg PO [facility] Sodium Chloride (Sodium Chloride Tab) 1 gm PO TID [facility] Last Admin: 06/24/17 18:02 Dose: 1 gm Vancomycin HCl (Vancocin (Oral Or Rectal Use)) 250 mg PO QID [facility] Last Admin: 06/24/17 21:55 Dose: 250 mg - Labs Labs: 06/25/17 06:34 06/25/17 06:34 PT 19.3 SECONDS (9.7-12.2) H 06/15/17 13:26 INR 1.7 06/15/17 13:26 APTT 34 SECONDS (21-34) 06/15/17 13:26 - Eye Exam Eye Exam: Normal appearance - ENT Exam ENT Exam: Mucous Membranes Moist - Neck Exam Neck Exam: Full ROM. absent: Lymphadenopathy, Normal Inspection - Respiratory Exam Respiratory Exam: Decreased Breath Sounds, Rales. absent: Rhonchi, Wheezes - Cardiovascular Exam Cardiovascular Exam: REGULAR RHYTHM, +S1, +S2, Murmur. absent: Gallop - GI/Abdominal Exam GI & Abdominal Exam: Soft. absent: Tenderness, Mass - Extremities Exam Extremities Exam: Full ROM. absent: Calf Tenderness, Joint Swelling, Normal Capillary Refill Assessment and Plan - Assessment and Plan (Free Text) Assessment: Fever, C diff infecton COPD, Exac, Myelodysplasia, Recent PE CAD s/p Cath Antibx as per ID; Await Alejandro opinion For transfusion Cont meds
[2017-06-25 09:21] LABS: BANDS 31 % (0-2); EOSINOPHIL 1 % (0-4); LYMPHOCYTE 3 % (20-40); MONOCYTE 9 % (0-10); NEUTROPHIL 55 % (50-75); NUCLEATED RED BLOOD CELL 1 % (0-0); REACTIVE LYMPHOCYTES 1 % (0-0); TOTAL CELLS COUNTED 100
[2017-06-25 09:22] LABS: ANISOCYTOSIS SLIGHT; HYPOCHROMIC MODERATE; MICROCYTOSIS SLIGHT; PLATELET ESTIMATE SLIGHTLY INCREASED (NORMAL); POIKILOCYTOSIS SLIGHT; SCHISTOCYTES SLIGHT; TEARDROP CELLS SLIGHT
[2017-06-25 09:23] LABS: BURR CELLS MODERATE; OVALOCYTES SLIGHT; TARGET CELLS SLIGHT
[2017-06-25 09:24] LABS: ACANTHOCYTES SLIGHT; LARGE PLATELETS PRESENT
[2017-06-25] MEDS: methIMAzole 5 MG TAB PO SCH (09:35)
[2017-06-25] MEDS: Vancomycin 125 MG/5 ML SOLN (ORAL/RECTAL) PO SCH ×4 (09:35→22:04)
[2017-06-25] MEDS: Multiple Vitamins Tab PO SCH (09:36)
[2017-06-25] MEDS: Fluconazole IV 200mg/100 ml NS 100 ML IVPB SCH (15:36)
--- NOTE | 2017-06-25 16:17 | CP.PCM.PN ---
Subjective - Date & Time of Evaluation Date of Evaluation: 06/25/17 Time of Evaluation: 12:20 - Subjective Subjective: Patient was seen and examined at the bedside. Patient reports chills over night that improved with tylenol. She has a mild dry cough. She states she had some shortness of breath over night with the tremors. Denies nausea, vomiting or chest pain. Patient has been febrile (100.5), stool occult +, HgB 7.5 Assessment/Plan Shortness of breath -febrile -sputum culture/stain negative -continue nebulizer txs? -monitor Hgb, O2 sat Anemia: -stool occult + -febrile -hold Eliquis andAspirin -transfuse as necessary -monitor signs and symptoms -trend Hgb C Diff Infection - antibiotics as per ID Objective - Vital Signs/Intake and Output Vital Signs (last 24 hours): Temp Pulse Resp BP Pulse Ox 98.6 F 89 20 96/55 L 100 06/25/17 09:32 06/25/17 08:00 06/25/17 07:00 06/25/17 07:00 06/25/17 07:00 Intake and Output: 06/25/17 06/25/17 06:59 18:59 Intake Total 643 350 Output Total 425 Balance 218 350 - Medications Medications: Current Medications Acetaminophen (Tylenol 325mg Tab) 650 mg PO Q6 PRN PRN Reason: Pain, Mild (1-3) Last Admin: 06/25/17 04:37 Dose: 650 mg Apixaban (Eliquis) 5 mg PO BID [facility] Last Admin: 06/24/17 11:18 Dose: 5 mg Aspirin (Aspirin Chewable) 81 mg PO DAILY [facility] Last Admin: 06/24/17 11:18 Dose: 81 mg Dicyclomine HCl (Bentyl) 10 mg PO BID [facility] Last Admin: 06/25/17 09:36 Dose: 10 mg Epoetin Woody (Procrit) 10,000 unit SC TTS [facility] Last Admin: 06/24/17 11:19 Dose: 10,000 unit Furosemide (Lasix) 20 mg PO BID [facility] Last Admin: 06/23/17 10:03 Dose: Not Given Furosemide (Lasix) 20 mg IVP ONCE PRN PRN Reason: Shortness of Breath Last Admin: 06/24/17 20:19 Dose: 20 mg Furosemide (Lasix) 20 mg IVP ONCE PRN PRN Reason: Shortness of Breath Metronidazole (Flagyl) 500 mg in 100 mls @ 100 mls/hr IVPB Q8 [facility] Last Admin: 06/25/17 13:23 Dose: 100 mls/hr Fluconazole (Diflucan Iv 200 Mg/100 Ml Ns) 100 mls @ 100 mls/hr IVPB DAILY [facility] Last Admin: 06/25/17 15:36 Dose: 100 mls/hr Losartan Potassium (Cozaar) 25 mg PO DAILY [facility] Last Admin: 06/23/17 10:03 Dose: Not Given Methimazole (Tapazole) 5 mg PO DAILY [facility] Last Admin: 06/25/17 09:35 Dose: 5 mg Metoprolol Succinate (Toprol Xl) 25 mg PO DAILY [facility] Last Admin: 06/24/17 11:19 Dose: 25 mg Multivitamins (Hexavitamin) 1 tab PO DAILY [facility] Last Admin: 06/25/17 09:36 Dose: 1 tab Prednisone (Prednisone Tab) 5 mg PO DAILY [facility] Last Admin: 06/25/17 09:35 Dose: 5 mg Primidone (Mysoline) 50 mg PO [facility] Sodium Chloride (Sodium Chloride Tab) 1 gm PO TID [facility] Last Admin: 06/25/17 13:22 Dose: 1 gm Vancomycin HCl (Vancocin (Oral Or Rectal Use)) 250 mg PO QID [facility] Last Admin: 06/25/17 13:22 Dose: 250 mg - Labs Labs: 06/25/17 06:34 06/25/17 06:34 PT 19.3 SECONDS (9.7-12.2) H 06/15/17 13:26 INR 1.7 06/15/17 13:26 APTT 34 SECONDS (21-34) 06/15/17 13:26 Assessment and Plan (1) SOB (shortness of breath) Status: Acute (2) Myelodysplasia (myelodysplastic syndrome) Status: Acute
--- NOTE | 2017-06-25 18:24 | CP.PCM.PN ---
Subjective - Date & Time of Evaluation Date of Evaluation: 06/25/17 Time of Evaluation: 18:23 - Subjective Subjective: pt is seen and examined, follow up consult is dictated #[id number] Objective - Vital Signs/Intake and Output Vital Signs (last 24 hours): Temp Pulse Resp BP Pulse Ox 98.0 F 93 H 20 104/68 98 06/25/17 15:00 06/25/17 18:16 06/25/17 15:00 06/25/17 18:05 06/25/17 15:00 Intake and Output: 06/25/17 06/25/17 06:59 18:59 Intake Total 643 470 Output Total 425 Balance 218 470 - Medications Medications: Current Medications Acetaminophen (Tylenol 325mg Tab) 650 mg PO Q6 PRN PRN Reason: Pain, Mild (1-3) Last Admin: 06/25/17 04:37 Dose: 650 mg Apixaban (Eliquis) 5 mg PO BID [facility] Last Admin: 06/24/17 11:18 Dose: 5 mg Aspirin (Aspirin Chewable) 81 mg PO DAILY [facility] Last Admin: 06/24/17 11:18 Dose: 81 mg Dicyclomine HCl (Bentyl) 10 mg PO BID [facility] Last Admin: 06/25/17 17:16 Dose: 10 mg Epoetin Woody (Procrit) 10,000 unit SC TTS [facility] Last Admin: 06/24/17 11:19 Dose: 10,000 unit Furosemide (Lasix) 20 mg PO BID [facility] Last Admin: 06/23/17 10:03 Dose: Not Given Furosemide (Lasix) 20 mg IVP ONCE PRN PRN Reason: Shortness of Breath Last Admin: 06/24/17 20:19 Dose: 20 mg Furosemide (Lasix) 20 mg IVP ONCE PRN PRN Reason: Shortness of Breath Metronidazole (Flagyl) 500 mg in 100 mls @ 100 mls/hr IVPB Q8 [facility] Last Admin: 06/25/17 13:23 Dose: 100 mls/hr Fluconazole (Diflucan Iv 200 Mg/100 Ml Ns) 100 mls @ 100 mls/hr IVPB DAILY [facility] Last Admin: 06/25/17 15:36 Dose: 100 mls/hr Losartan Potassium (Cozaar) 25 mg PO DAILY [facility] Last Admin: 06/23/17 10:03 Dose: Not Given Methimazole (Tapazole) 5 mg PO DAILY [facility] Last Admin: 06/25/17 09:35 Dose: 5 mg Metoprolol Succinate (Toprol Xl) 25 mg PO DAILY [facility] Last Admin: 06/24/17 11:19 Dose: 25 mg Multivitamins (Hexavitamin) 1 tab PO DAILY [facility] Last Admin: 06/25/17 09:36 Dose: 1 tab Prednisone (Prednisone Tab) 5 mg PO DAILY [facility] Last Admin: 06/25/17 09:35 Dose: 5 mg Sodium Chloride (Sodium Chloride Tab) 1 gm PO TID [facility] Last Admin: 06/25/17 17:16 Dose: 1 gm Vancomycin HCl (Vancocin (Oral Or Rectal Use)) 250 mg PO QID [facility] Last Admin: 06/25/17 17:16 Dose: 250 mg - Labs Labs: 06/25/17 06:34 06/25/17 06:34 PT 19.3 SECONDS (9.7-12.2) H 06/15/17 13:26 INR 1.7 06/15/17 13:26 APTT 34 SECONDS (21-34) 06/15/17 13:26
--- NOTE | 2017-06-25 18:35 | CP.PCM.PN ---
Subjective - Date & Time of Evaluation Date of Evaluation: 06/25/17 Time of Evaluation: 10:00 - Subjective Subjective: fever on / off blood c/s neg ct done to r/o abscess dr cantrell to re-eval Objective - Vital Signs/Intake and Output Vital Signs (last 24 hours): Temp Pulse Resp BP Pulse Ox 98.0 F 93 H 20 104/68 98 06/25/17 15:00 06/25/17 18:16 06/25/17 15:00 06/25/17 18:05 06/25/17 15:00 Intake and Output: 06/25/17 06/25/17 06:59 18:59 Intake Total 643 470 Output Total 425 Balance 218 470 - Medications Medications: Current Medications Acetaminophen (Tylenol 325mg Tab) 650 mg PO Q6 PRN PRN Reason: Pain, Mild (1-3) Last Admin: 06/25/17 04:37 Dose: 650 mg Apixaban (Eliquis) 5 mg PO BID [facility] Last Admin: 06/24/17 11:18 Dose: 5 mg Aspirin (Aspirin Chewable) 81 mg PO DAILY [facility] Last Admin: 06/24/17 11:18 Dose: 81 mg Dicyclomine HCl (Bentyl) 10 mg PO BID [facility] Last Admin: 06/25/17 17:16 Dose: 10 mg Epoetin Woody (Procrit) 10,000 unit SC TTS [facility] Last Admin: 06/24/17 11:19 Dose: 10,000 unit Furosemide (Lasix) 20 mg PO BID [facility] Last Admin: 06/23/17 10:03 Dose: Not Given Furosemide (Lasix) 20 mg IVP ONCE PRN PRN Reason: Shortness of Breath Last Admin: 06/24/17 20:19 Dose: 20 mg Furosemide (Lasix) 20 mg IVP ONCE PRN PRN Reason: Shortness of Breath Metronidazole (Flagyl) 500 mg in 100 mls @ 100 mls/hr IVPB Q8 [facility] Last Admin: 06/25/17 13:23 Dose: 100 mls/hr Fluconazole (Diflucan Iv 200 Mg/100 Ml Ns) 100 mls @ 100 mls/hr IVPB DAILY [facility] Last Admin: 06/25/17 15:36 Dose: 100 mls/hr Losartan Potassium (Cozaar) 25 mg PO DAILY [facility] Last Admin: 06/23/17 10:03 Dose: Not Given Methimazole (Tapazole) 5 mg PO DAILY [facility] Last Admin: 06/25/17 09:35 Dose: 5 mg Metoprolol Succinate (Toprol Xl) 25 mg PO DAILY [facility] Last Admin: 06/24/17 11:19 Dose: 25 mg Multivitamins (Hexavitamin) 1 tab PO DAILY [facility] Last Admin: 06/25/17 09:36 Dose: 1 tab Prednisone (Prednisone Tab) 5 mg PO DAILY [facility] Last Admin: 06/25/17 09:35 Dose: 5 mg Sodium Chloride (Sodium Chloride Tab) 1 gm PO TID [facility] Last Admin: 06/25/17 17:16 Dose: 1 gm Vancomycin HCl (Vancocin (Oral Or Rectal Use)) 250 mg PO QID [facility] Last Admin: 06/25/17 17:16 Dose: 250 mg - Labs Labs: 06/25/17 06:34 06/25/17 06:34 PT 19.3 SECONDS (9.7-12.2) H 06/15/17 13:26 INR 1.7 06/15/17 13:26 APTT 34 SECONDS (21-34) 06/15/17 13:26 - Constitutional Appears: Non-toxic, Cachectic, Chronically Ill - Head Exam Head Exam: NORMOCEPHALIC - Eye Exam Eye Exam: PERRL - ENT Exam ENT Exam: Mucous Membranes Dry - Neck Exam Neck Exam: absent: Lymphadenopathy - Respiratory Exam Respiratory Exam: Decreased Breath Sounds - Cardiovascular Exam Cardiovascular Exam: REGULAR RHYTHM, +S1, +S2 - GI/Abdominal Exam GI & Abdominal Exam: Distended - Rectal Exam Rectal Exam: Deferred - Exam Exam: NORMAL INSPECTION Assessment and Plan (1) CHF (congestive heart failure) Status: Acute (2) Rapid atrial fibrillation Status: Acute (3) CAD (coronary artery disease) Status: Acute (4) Cough Status: Acute (5) Dehydration Status: Acute (6) Hyponatremia Status: Acute (7) Lower respiratory infection Status: Acute (8) Myelodysplasia (myelodysplastic syndrome) Status: Acute
[2017-06-25] MEDS ORDERED: Vancomycin 1 gm/NS 200 ml 1 GM/200 ML BAG IVPB ONE (19:00)
[2017-06-25 22:05] LABS: SQUAMOUS EPITHIAL 4 /hpf (0-5); URINE BACTERIA RARE (<OCC); URINE BILIRUBIN NEGATIVE (NEGATIVE); URINE BLOOD NEGATIVE (NEGATIVE); URINE CLARITY Hazy (Clear); URINE COLOR Amber (YELLOW); URINE GLUCOSE (UA) NORMAL (Normal); URINE LEUKOCYTE ESTERASE 1+ Leu/uL (Negative); URINE NITRATE NEGATIVE (NEGATIVE); URINE PROTEIN 1+ mg/dL (NEGATIVE); URINE UROBILINOGEN NORMAL mg/dL (0.2-1.0)
[2017-06-26] MEDS: metroNIDAZOLE IV 500 mg/100 ml 500 MG/100 ML BAG IVPB SCH ×3 (06:43→22:35)
[2017-06-26 08:23] LABS: ALB/GLOB RATIO 0.8 (1.0-2.1); ALBUMIN 2.2 g/dL (3.5-5.0); ALT/SGPT 28 U/L (9-52); AST/SGOT 18 U/L (14-36); BLOOD UREA NITROGEN 16 mg/dL (7-17); CALCIUM 7.7 mg/dl (8.6-10.4); GFR AFRICAN-AMERICAN > 60; GFR NON-AFRICAN AMERICAN > 60
--- NOTE | 2017-06-26 09:00 | CP.PCM.PN ---
Subjective - Date & Time of Evaluation Date of Evaluation: 06/26/17 Time of Evaluation: 08:59 - Subjective Subjective: pt is seen and examined, follow up consult is dictated #[id number] d/c nacl tabs start lasix 20 mg po bid kcl 40 meq po x 1 now f/u with GI check cbc Objective - Vital Signs/Intake and Output Vital Signs (last 24 hours): Temp Pulse Resp BP Pulse Ox 98.7 F 100 H 20 102/66 96 06/26/17 08:44 06/26/17 08:44 06/26/17 08:44 06/26/17 08:44 06/26/17 00:41 Intake and Output: 06/26/17 06/26/17 06:59 18:59 Intake Total 200 0 Balance 200 0 - Medications Medications: Current Medications Acetaminophen (Tylenol 325mg Tab) 650 mg PO Q6 PRN PRN Reason: Pain, Mild (1-3) Last Admin: 06/25/17 21:31 Dose: 650 mg Apixaban (Eliquis) 5 mg PO BID [facility] Last Admin: 06/24/17 11:18 Dose: 5 mg Aspirin (Aspirin Chewable) 81 mg PO DAILY [facility] Last Admin: 06/24/17 11:18 Dose: 81 mg Dicyclomine HCl (Bentyl) 10 mg PO BID [facility] Last Admin: 06/25/17 17:16 Dose: 10 mg Epoetin Woody (Procrit) 10,000 unit SC TTS [facility] Last Admin: 06/24/17 11:19 Dose: 10,000 unit Furosemide (Lasix) 20 mg PO BID [facility] Last Admin: 06/23/17 10:03 Dose: Not Given Furosemide (Lasix) 20 mg IVP ONCE PRN PRN Reason: Shortness of Breath Last Admin: 06/24/17 20:19 Dose: 20 mg Furosemide (Lasix) 20 mg IVP ONCE PRN PRN Reason: Shortness of Breath Metronidazole (Flagyl) 500 mg in 100 mls @ 100 mls/hr IVPB Q8 [facility] Last Admin: 06/26/17 06:43 Dose: 100 mls/hr Fluconazole (Diflucan Iv 200 Mg/100 Ml Ns) 100 mls @ 100 mls/hr IVPB DAILY [facility] Last Admin: 06/25/17 15:36 Dose: 100 mls/hr Losartan Potassium (Cozaar) 25 mg PO DAILY [facility] Last Admin: 06/23/17 10:03 Dose: Not Given Methimazole (Tapazole) 5 mg PO DAILY [facility] Last Admin: 06/25/17 09:35 Dose: 5 mg Metoprolol Succinate (Toprol Xl) 25 mg PO DAILY [facility] Last Admin: 06/24/17 11:19 Dose: 25 mg Multivitamins (Hexavitamin) 1 tab PO DAILY [facility] Last Admin: 06/25/17 09:36 Dose: 1 tab Potassium Chloride (Potassium Chloride Oral Soln) 40 meq PO STAT STA Stop: 06/26/17 08:57 Prednisone (Prednisone Tab) 5 mg PO DAILY [facility] Last Admin: 06/25/17 09:35 Dose: 5 mg Vancomycin HCl (Vancocin (Oral Or Rectal Use)) 250 mg PO QID [facility] Last Admin: 06/25/17 22:04 Dose: 250 mg - Labs Labs: 06/25/17 06:34 06/26/17 07:38 PT 19.3 SECONDS (9.7-12.2) H 06/15/17 13:26 INR 1.7 06/15/17 13:26 APTT 34 SECONDS (21-34) 06/15/17 13:26
--- NOTE | 2017-06-26 09:15 | PN ---
FOLLOWUP RENAL CONSULTATION DATE: 06/25/2017 REASON FOR RENAL CONSULTATION: Hyponatremia and prerenal azotemia, anemia. HISTORY OF PRESENT ILLNESS: Mrs. Paredes is a 77-year-old elderly [place] female with a past medical history significant for longstanding hypertension, CHF, AFib, PE, questionable thrombus in distal RCA, , being treated for C. diff colitis and also hyponatremia. The patient was found to have low H and H yesterday and had transfusion. The patient is feeling slightly better today, not in acute distress. No chest pain. No palpitation. No fever. No cough. No abdominal pain. No nausea, vomiting or diarrhea. PHYSICAL EXAMINATION GENERAL: Mrs. Paredes is a 77-year-old elderly [place] female moderate built, moderate nourished, not in acute distress. VITAL SIGNS: As follows; blood pressure 104/68, pulse 97, respirations 20, temperature 98, height 5 feet 2 inches and weight is 124 pounds. T-Max is 100.5. HEENT: Pupils normal and reactive to light and accommodation. Conjunctivae pink. Sclerae anicteric. Tongue is moist. Trachea is midline. LUNGS: Symmetric on both sides. Bilateral breath sounds present. Bilateral basal crackles present. CVS: [place] at the fifth intercostal space, midclavicular line. S1 and S2 audible. No murmur or gallop. ABDOMEN: Normal in appearance, soft, tympanic. No guarding. No rigidity. No hepatosplenomegaly. MATERIAL STRESS TESTER: The patient is alert, awake and oriented x3. Nonfocal neuro examination. Cranial nerves II through XII grossly intact. Sensory and motor systems within normal limits. EXTREMITIES: No cyanosis. No clubbing. The patient has 1 to 2+ edema in both lower extremities, right more than the left. CURRENT MEDICATIONS: Include as follows; aspirin 81 mg daily on hold and Bentyl 10 mg p.o. b.i.d. and losartan is on hold and Diflucan 200 mg daily, Eliquis on hold and Flagyl 500 mg IV q. 8 hours, Hexavitamin 1 tablet daily and Lasix on hold and prednisone 5 mg p.o. daily and Procrit 10,000 units 3 times a week and sodium chloride tablet 3 times a day and Tapazole 5 mg p.o. daily and Toprol on hold and Tylenol 325 mg p.o. q. 6 hours p.r.n. and vancomycin 250 mg p.o. q.i.d. LABORATORY DATA: As of 06/22/2017, blood cultures x2 negative day 3, and sputum cultures showed normal alondra and urine culture multiple species and as of 06/24/2017, blood culture negative day 1 and urine culture is positive for Gram-positive cocci and blood cultures x2 is negative day 1 on 06/24/2017. Duplex scan of the lower extremities as of 06/23/2017, no evidence of DVT. Bilateral CT of the abdomen and pelvis report is pending. Other laboratory data as follows as of 06/25/2017, WBC 10, hemoglobin 7.5, hematocrit 21.3, platelets of 456, neutrophils 55, bands 31, and lymphocyte 3 and monocytes 9. Sodium 131, potassium 3.3, chloride 98, CO2 of 26, BUN 22, creatinine 0.4, glucose 91, calcium 7.5, total bili 1.1, AST 14, ALT 37, alkaline phosphatase 65, total protein 2.9 and albumin is 2.1. As of 06/24/2017, stool for occult blood is positive and as of 06/24/2017, H and H 9.5/19.3 and urine analysis as of 06/25/2017, renee colored, hazy, pH 6, specific gravity 1.026 and protein 1+, glucose negative, ketones negative, blood negative, nitrogen negative, bilirubin negative, leukocyte esterase is 1+ and urobilinogen normal, wbc 5, rbc 2 and bacteria is rare. ASSESSMENT: In summary, Mrs. Paredes is a 77-year-old elderly female with hypertension, congestive heart failure, myelodysplastic syndrome, anemia, atrial fibrillation, pulmonary embolus, questionable thrombus in the right RCA on anticoagulation with low H and H and anticoagulation is on hold, status post transfusion yesterday with serum sodium about 131 and increased BUN and creatinine ratio 22/0.4. 1. Prerenal azotemia. Most likely multifactorial, decreased intravascular volume, and steroids. 2. Hyponatremia. Serum sodium is stable. Continues on sodium chloride tablet one tablet p.o. t.i.d. 3. Hypokalemia, supplement potassium as needed and encourage high protein diet and also will add Pro-Stat 30 mL p.o. b.i.d. We will also request GI consult as requested by Dr. Hernandez. We will follow with you. Thank you for allowing me to participate in your patient's care. Rehan Dos Santos MD
[2017-06-26] MEDS ORDERED: Potassium Chloride 20 mEq/15 ml LIQ UD PO ONE ×2 (09:30→10:45)
--- NOTE | 2017-06-26 09:31 | CT ---
CT chest, abdomen, and pelvis without IV contrast Indication: Fever of unknown origin Technique: Contiguous axial images of the chest, abdomen, and pelvis without oral or IV contrast. Coronal and Sagittal reformats generated and reviewed. This CT exam was performed using 1 or more of the following dose reduction techniques: Automated exposure control, adjustment of the MAA and/or kV according to patient size, and/or use of iterative reconstruction technique. Radiation dose: Total exam DLP = 814.76 MGy-cm. Comparison: CT of the abdomen and pelvis with p.o. and IV contrast performed 05/15/17 Findings: Mild streak artifact limits evaluation of the included portions inferior thyroid gland. The unenhanced mediastinal and hilar vascular structures appear grossly unremarkable. Cardiomegaly. 13 mm prevascular lymph node (short axis). Additional prominent sub cm mediastinal and prevascular lymph nodes, nonspecific. Sub cm axillary lymph nodes, nonspecific. Small right greater than left pleural effusions and associated consolidations. Right apical scarring/atelectasis. 6 mm left upper lobe anterior pulmonary nodule (series 4, image 46). Suspect tiny gallstone in the gallbladder. Focal gallbladder wall thickening versus soft tissue density along the gallbladder fundus re-identified. The noncontrast liver, spleen, kidneys, pancreas, and adrenal glands appear grossly unremarkable. The stomach is nondistended. Lack of oral contrast limits evaluation for bowel pathology. Extensive wall thickening of the rectum lobe and distal sigmoid colon; correlate for colitis and/or proctitis. Additionally evidence of cecal and the left colonic wall thickening suspicious for colitis. No evidence of bowel obstruction. There is no definite free air. The appendix is not identified on this study. Uterus is present. Under distention of the urinary bladder limits evaluation. Soft tissue edema. Degenerative changes of the spine. Osseous demineralization. Scoliosis. Impression: Examination limited by absence of oral or IV contrast. Extensive wall thickening of the rectum lobe and distal sigmoid colon; correlate for colitis and/or proctitis. Additionally evidence of cecal and the left colonic wall thickening suspicious for colitis. The appendix is not identified on this study. Suspect tiny gallstone in the gallbladder. Right upper quadrant ultrasound may be considered if indicated. Focal gallbladder wall thickening versus soft tissue density along the gallbladder fundus re-identified ; differential diagnosis as on prior study. 6 mm left upper lobe pulmonary nodule. For low-risk patients recommend follow-up chest CT at 6-12 months. If unchanged consider an additional follow-up CT at 18-24 months. For high-risk patients (smoking history or other known risk factors) initial follow-up chest CT at 6-12 months and if unchanged, 18-24 months. 13 mm prevascular lymph node (short axis). Additional prominent sub cm mediastinal and prevascular lymph nodes, nonspecific. Sub cm axillary lymph nodes, nonspecific. Additional incidental findings are described above.
[2017-06-26 10:41] LABS: SQUAMOUS EPITHIAL 5 /hpf (0-5); URINE BACTERIA RARE (<OCC); URINE BILIRUBIN NEGATIVE (NEGATIVE); URINE CLARITY Hazy (Clear); URINE COLOR Amber (YELLOW); URINE GLUCOSE (UA) NORMAL (Normal); URINE LEUKOCYTE ESTERASE 1+ Leu/uL (Negative); URINE NITRATE NEGATIVE (NEGATIVE); URINE PROTEIN 1+ mg/dL (NEGATIVE); URINE UROBILINOGEN NORMAL mg/dL (0.2-1.0)
[2017-06-26 10:42] LABS: URINE BLOOD TRACE (NEGATIVE)
[2017-06-26] MEDS: Vancomycin 125 MG/5 ML SOLN (ORAL/RECTAL) PO SCH ×4 (10:43→23:00)
[2017-06-26] MEDS: Fluconazole IV 200mg/100 ml NS 100 ML IVPB SCH (10:43)
[2017-06-26] MEDS: methIMAzole 5 MG TAB PO SCH (10:44)
[2017-06-26] MEDS: Epoetin Alfa 10,000 unit/ml Dialysis SC SCH (10:44)
[2017-06-26] MEDS: Multiple Vitamins Tab PO SCH (10:45)
[2017-06-26 11:19] LABS: ALB/GLOB RATIO 0.7 (1.0-2.1); ALBUMIN 2.2 g/dL (3.5-5.0); ALT/SGPT 33 U/L (9-52); AST/SGOT 15 U/L (14-36); BLOOD UREA NITROGEN 15 mg/dL (7-17); CALCIUM 7.4 mg/dl (8.6-10.4); GFR AFRICAN-AMERICAN > 60; GFR NON-AFRICAN AMERICAN > 60
--- NOTE | 2017-06-26 14:00 | CP.PCM.CON ---
History of Present Illness - History of Present Illness History of Present Illness: This is a 77 year old woman admitted with shortness of breath and weakness. GI consulted for positive fecal occult blood test. Patient was admitted multiple times in the past six months: 02/05-02/15/17 for pulmonary embolus; 04/09-04/15/2017 for cellulitis; 04/21/17-04/30/17 for fever, possible pneumonia; 05/14/17-05/26/17 for C difficile infection; and 06/06/17- for pneumonia, NSTMI. She was seen 04/27/17 for a possible lesion in the liver. MRI 04/28/17 showed multiple foci of increased signal intensity on T2 images, possible metastatic disease, and soft tissue density along the inferior border of the gall bladder. CT scan 04/29/17 showed two small hepatic low density lesions; two splenic infarcts;l thickening of right colon wall; decompressed GB. Patient presented to the ER on 06/16/17 with fever, shortness of breath and weakness. She was anemic, HGB 7.6 on admission, and the HGB declined to 6.5 on 05/24/17. She has a history of myelodysplastic syndrome since February,, now treated with epogen. On the same day, stool for occult blood was positive. Patient denies having abdominal pain, nausea, vomiting, heartburn, difficulty swallowing, constipation, and rectal bleeding. She did have diarrhea on admission which was attributed to recurrent C difficile infection (positive stool TAMI on 06/18/2017). but has not had diarrhea in the past two days, according to the nursing staff. Review of Systems - Review of Systems All systems: reviewed and no additional remarkable complaints except - Constitutional Constitutional: Fever - Cardiovascular Cardiovascular: Chest Pain, Edema - Respiratory Respiratory: Cough, Dyspnea - Gastrointestinal Gastrointestinal: Diarrhea. absent: Abdominal Pain, Constipation, Dysphagia, Heartburn, Hematochezia, Nausea, Temesmus - Genitourinary Genitourinary: absent: Change in Urinary Stream Past Patient History - Infectious Disease Hx of Infectious Diseases: None - Past Medical History & Family History Past Medical History?: Yes - Past Social History Smoking Status: Never Smoked Home Situation {Lives}: With Family - CARDIAC Hx Congestive Heart Failure: Yes Hx Hypercholesterolemia: Yes Hx Hypertension: Yes - PULMONARY Hx Pneumonia: Yes Hx Pulmonary Embolism: Yes - NEUROLOGICAL Hx Neurological Disorder: No - HEENT Hx HEENT Problems: No - RENAL Hx Chronic Kidney Disease: No - ENDOCRINE/METABOLIC Hx Hypothyroidism: Yes - HEMATOLOGICAL/ONCOLOGICAL Hx Anemia: Yes - INTEGUMENTARY Hx Dermatological Problems: No - MUSCULOSKELETAL/RHEUMATOLOGICAL Hx Musculoskeletal Disorders: Yes Hx Falls: Yes - GASTROINTESTINAL Hx Gastritis: Yes - GENITOURINARY/GYNECOLOGICAL Hx Genitourinary Disorders: No - PSYCHIATRIC Hx Substance Use: No - SURGICAL HISTORY Hx Surgeries: Yes Hx Cardiac Catheterization: Yes (2018) - ANESTHESIA Hx Anesthesia: No Hx Anesthesia Reactions: No Hx Malignant Hyperthermia: No Meds Allergies/Adverse Reactions: Allergies Allergy/AdvReac Type Severity Reaction Status Date / Time No Known Allergies Allergy Verified 06/15/17 12:10 - Medications Medications: Current Medications Acetaminophen (Tylenol 325mg Tab) 650 mg PO Q6 PRN PRN Reason: Pain, Mild (1-3) Last Admin: 06/26/17 09:25 Dose: 650 mg Apixaban (Eliquis) 5 mg PO BID [facility] Last Admin: 06/24/17 11:18 Dose: 5 mg Aspirin (Aspirin Chewable) 81 mg PO DAILY [facility] Last Admin: 06/24/17 11:18 Dose: 81 mg Dicyclomine HCl (Bentyl) 10 mg PO BID [facility] Last Admin: 06/26/17 10:45 Dose: 10 mg Epoetin Woody (Procrit) 10,000 unit SC TTS [facility] Last Admin: 06/26/17 10:44 Dose: 10,000 unit Furosemide (Lasix) 20 mg PO BID [facility] Last Admin: 06/26/17 10:45 Dose: Not Given Metronidazole (Flagyl) 500 mg in 100 mls @ 100 mls/hr IVPB Q8 [facility] Last Admin: 06/26/17 13:46 Dose: 100 mls/hr Fluconazole (Diflucan Iv 200 Mg/100 Ml Ns) 100 mls @ 100 mls/hr IVPB DAILY [facility] Last Admin: 06/26/17 10:43 Dose: 100 mls/hr Losartan Potassium (Cozaar) 25 mg PO DAILY [facility] Last Admin: 06/23/17 10:03 Dose: Not Given Methimazole (Tapazole) 5 mg PO DAILY [facility] Last Admin: 06/26/17 10:44 Dose: 5 mg Metoprolol Succinate (Toprol Xl) 25 mg PO DAILY [facility] Last Admin: 06/24/17 11:19 Dose: 25 mg Multivitamins (Hexavitamin) 1 tab PO DAILY [facility] Last Admin: 06/26/17 10:45 Dose: 1 tab Prednisone (Prednisone Tab) 5 mg PO DAILY [facility] Last Admin: 06/26/17 10:45 Dose: 5 mg Vancomycin HCl (Vancocin (Oral Or Rectal Use)) 250 mg PO QID [facility] Last Admin: 06/26/17 13:46 Dose: 250 mg Physical Exam - Constitutional Appears: No Acute Distress - Head Exam Head Exam: ATRAUMATIC, NORMOCEPHALIC - Eye Exam Eye Exam: EOMI, PERRL - Neck Exam Neck exam: Negative for: Lymphadenopathy, Thyromegaly - Respiratory Exam Respiratory Exam: NORMAL BREATHING PATTERN. absent: Rales, Rhonchi, Wheezes - Cardiovascular Exam Cardiovascular Exam: REGULAR RHYTHM, +S1, +S2. absent: Gallop, Rubs, Systolic Murmur - GI/Abdominal Exam GI & Abdominal Exam: Normal Bowel Sounds, Soft. absent: Mass, Organomegaly, Tenderness - Rectal Exam Rectal Exam: Deferred - Extremities Exam Extremities exam: Positive for: pedal edema. Negative for: calf tenderness Results - Vital Signs Recent Vital Signs: Last Vital Signs Temp 99.2 F 06/26/17 10:25 Pulse 67 06/26/17 09:15 Resp 18 06/26/17 09:15 BP 101/59 L 06/26/17 10:45 Pulse Ox 99 06/26/17 07:00 - Labs Result Diagrams: 06/25/17 06:34 06/26/17 10:14 Labs: Laboratory Results - last 24 hr 06/24/17 06/25/17 06/26/17 17:24 21:53 07:38 Sodium 132 Potassium 3.5 L Chloride 98 Carbon Dioxide 28 Anion Gap 10 BUN 16 Creatinine 0.5 L Est GFR ( Amer) > 60 Est GFR (Non-Af Amer) > 60 Random Glucose 129 H Calcium 7.7 L Total Bilirubin 0.6 AST 18 ALT 28 Alkaline Phosphatase 68 Total Protein 5.1 L Albumin 2.2 L Globulin 2.9 Albumin/Globulin Ratio 0.8 L Urine Color Jayda Urine Clarity Hazy Urine pH 6.0 Ur Specific [place] 1.026 Urine Protein 1+ H Urine Glucose (UA) Normal Urine Ketones Negative Urine Blood Negative Urine Nitrate Negative Urine Bilirubin Negative Urine Urobilinogen Normal Ur Leukocyte Esterase 1+ H Urine WBC (Auto) 5 Urine RBC (Auto) 2 Ur Squamous Epith Cells 4 Urine Bacteria Rare Blood Type O POSITIVE Antibody Screen Positive Antibody Identification Anti E Tx React Basic Work-up Clerical Work Check Pre-Trans Blood Type Pre-Trans Vis Hemolysis Pre-Tx Ab Screen (Gel) Post-Trans Blood Type Post-Tx Visible Hemolys Post-Tx Ab Screen (Gel) Post-Trans KENNETH Poly Pathologist Comment BBK 06/26/17 06/26/17 06/26/17 10:14 10:14 10:22 Sodium 130 L Potassium 3.3 L Chloride 98 Carbon Dioxide 24 Anion Gap 11 BUN 15 Creatinine 0.4 L Est GFR ( Amer) > 60 Est GFR (Non-Af Amer) > 60 Random Glucose 119 H Calcium 7.4 L Total Bilirubin 1.0 AST 15 ALT 33 Alkaline Phosphatase 60 Total Protein 5.2 L Albumin 2.2 L Globulin 3.0 Albumin/Globulin Ratio 0.7 L Urine Color Jayda Urine Clarity Hazy Urine pH 5.0 Ur Specific [place] 1.024 Urine Protein 1+ H Urine Glucose (UA) Normal Urine Ketones Negative Urine Blood Trace Urine Nitrate Negative Urine Bilirubin Negative Urine Urobilinogen Normal Ur Leukocyte Esterase 1+ H Urine WBC (Auto) 19 H Urine RBC (Auto) 12 H Ur Squamous Epith Cells 5 Urine Bacteria Rare Blood Type Antibody Screen Antibody Identification Tx React Basic Work-up Compatible Clerical Work Check No discrepancy Pre-Trans Blood Type O POSITIVE Pre-Trans Vis Hemolysis No hemolysis Pre-Tx Ab Screen (Gel) Negative Post-Trans Blood Type O POSITIVE Post-Tx Visible Hemolys No hemolysis Post-Tx Ab Screen (Gel) Negative Post-Trans KENNETH Poly Negative Pathologist Comment BBK See note Assessment & Plan (1) Fecal occult blood test positive Assessment and Plan: Patient had a single fecal occult blood test return positive. She has been treated with Eliquis following a PE. chronic anemia attributable to MDS, but the HGB declined from the baseline to 6.5 on 06/24/17. Ordinarily, I would proceed to EGD and colonoscopy, but in view of multiple medical problems and possible NSTMI, I recommend waiting until she is more stable. She should be formally cleared for the procedures and for Modified Anesthesia Care by cardiology before the procedures are scheduled. Status: Acute
--- NOTE | 2017-06-26 17:42 | CP.PCM.PN ---
Subjective - Date & Time of Evaluation Date of Evaluation: 06/26/17 Time of Evaluation: 09:25 - Subjective Subjective: the patient seen and examined Denies shortness of breath, denies cough Being treated for C. difficile colitis and possible pneumonia CAT scan of the chest consistent with bilateral pleural effusion and consolidation Elevated pro calcitonin level Continue antibiotics per infectious disease The patient seen by gastroenterology Objective - Vital Signs/Intake and Output Vital Signs (last 24 hours): Temp Pulse Resp BP Pulse Ox 99.2 F 90 18 112/74 99 06/26/17 10:25 06/26/17 16:27 06/26/17 09:15 06/26/17 17:40 06/26/17 07:00 Intake and Output: 06/26/17 06/26/17 06:59 18:59 Intake Total 200 300 Balance 200 300 - Medications Medications: Current Medications Acetaminophen (Tylenol 325mg Tab) 650 mg PO Q6 PRN PRN Reason: Pain, Mild (1-3) Last Admin: 06/26/17 09:25 Dose: 650 mg Apixaban (Eliquis) 5 mg PO BID [facility] Last Admin: 06/24/17 11:18 Dose: 5 mg Aspirin (Aspirin Chewable) 81 mg PO DAILY [facility] Last Admin: 06/24/17 11:18 Dose: 81 mg Dicyclomine HCl (Bentyl) 10 mg PO BID [facility] Last Admin: 06/26/17 17:40 Dose: 10 mg Epoetin Woody (Procrit) 10,000 unit SC TTS [facility] Last Admin: 06/26/17 10:44 Dose: 10,000 unit Furosemide (Lasix) 20 mg PO BID [facility] Last Admin: 06/26/17 17:40 Dose: 20 mg Metronidazole (Flagyl) 500 mg in 100 mls @ 100 mls/hr IVPB Q8 [facility] Last Admin: 06/26/17 13:46 Dose: 100 mls/hr Fluconazole (Diflucan Iv 200 Mg/100 Ml Ns) 100 mls @ 100 mls/hr IVPB DAILY [facility] Last Admin: 06/26/17 10:43 Dose: 100 mls/hr Losartan Potassium (Cozaar) 25 mg PO DAILY [facility] Last Admin: 06/23/17 10:03 Dose: Not Given Methimazole (Tapazole) 5 mg PO DAILY [facility] Last Admin: 06/26/17 10:44 Dose: 5 mg Metoprolol Succinate (Toprol Xl) 25 mg PO DAILY [facility] Last Admin: 06/24/17 11:19 Dose: 25 mg Multivitamins (Hexavitamin) 1 tab PO DAILY [facility] Last Admin: 06/26/17 10:45 Dose: 1 tab Prednisone (Prednisone Tab) 5 mg PO DAILY [facility] Last Admin: 06/26/17 10:45 Dose: 5 mg Vancomycin HCl (Vancocin (Oral Or Rectal Use)) 250 mg PO QID [facility] Last Admin: 06/26/17 17:31 Dose: 250 mg - Labs Labs: 06/25/17 06:34 06/26/17 10:14 PT 19.3 SECONDS (9.7-12.2) H 06/15/17 13:26 INR 1.7 06/15/17 13:26 APTT 34 SECONDS (21-34) 06/15/17 13:26 Assessment and Plan (1) SOB (shortness of breath) Status: Acute (2) Myelodysplasia (myelodysplastic syndrome) Status: Acute
--- NOTE | 2017-06-26 18:12 | CP.PCM.PN ---
Subjective - Date & Time of Evaluation Date of Evaluation: 06/26/17 Time of Evaluation: 18:09 - Subjective Subjective: S: C/o fever, weakness and poor appetite Objective - Vital Signs/Intake and Output Vital Signs (last 24 hours): Temp Pulse Resp BP Pulse Ox 97.6 F 93 H 20 105/69 99 06/26/17 17:45 06/26/17 17:45 06/26/17 17:45 06/26/17 17:45 06/26/17 17:45 Intake and Output: 06/26/17 06/26/17 06:59 18:59 Intake Total 200 300 Balance 200 300 - Medications Medications: Current Medications Acetaminophen (Tylenol 325mg Tab) 650 mg PO Q6 PRN PRN Reason: Pain, Mild (1-3) Last Admin: 06/26/17 09:25 Dose: 650 mg Apixaban (Eliquis) 5 mg PO BID [facility] Last Admin: 06/24/17 11:18 Dose: 5 mg Aspirin (Aspirin Chewable) 81 mg PO DAILY [facility] Last Admin: 06/24/17 11:18 Dose: 81 mg Dicyclomine HCl (Bentyl) 10 mg PO BID [facility] Last Admin: 06/26/17 17:40 Dose: 10 mg Epoetin Woody (Procrit) 10,000 unit SC TTS [facility] Last Admin: 06/26/17 10:44 Dose: 10,000 unit Furosemide (Lasix) 20 mg PO BID [facility] Last Admin: 06/26/17 17:40 Dose: 20 mg Metronidazole (Flagyl) 500 mg in 100 mls @ 100 mls/hr IVPB Q8 [facility] Last Admin: 06/26/17 13:46 Dose: 100 mls/hr Fluconazole (Diflucan Iv 200 Mg/100 Ml Ns) 100 mls @ 100 mls/hr IVPB DAILY [facility] Last Admin: 06/26/17 10:43 Dose: 100 mls/hr Losartan Potassium (Cozaar) 25 mg PO DAILY [facility] Last Admin: 06/23/17 10:03 Dose: Not Given Methimazole (Tapazole) 5 mg PO DAILY [facility] Last Admin: 06/26/17 10:44 Dose: 5 mg Metoprolol Succinate (Toprol Xl) 25 mg PO DAILY [facility] Last Admin: 06/24/17 11:19 Dose: 25 mg Multivitamins (Hexavitamin) 1 tab PO DAILY [facility] Last Admin: 06/26/17 10:45 Dose: 1 tab Prednisone (Prednisone Tab) 5 mg PO DAILY [facility] Last Admin: 06/26/17 10:45 Dose: 5 mg Vancomycin HCl (Vancocin (Oral Or Rectal Use)) 250 mg PO QID [facility] Last Admin: 06/26/17 17:31 Dose: 250 mg - Labs Labs: 06/25/17 06:34 06/26/17 10:14 PT 19.3 SECONDS (9.7-12.2) H 06/15/17 13:26 INR 1.7 06/15/17 13:26 APTT 34 SECONDS (21-34) 06/15/17 13:26 - Constitutional Appears: Chronically Ill - Head Exam Head Exam: NORMAL INSPECTION - Eye Exam Eye Exam: Normal appearance - ENT Exam ENT Exam: Mucous Membranes Dry - Neck Exam Neck Exam: Normal Inspection - Respiratory Exam Respiratory Exam: Decreased Breath Sounds - Cardiovascular Exam Cardiovascular Exam: Irregular Rhythm - GI/Abdominal Exam GI & Abdominal Exam: Soft - Rectal Exam Rectal Exam: Deferred - Extremities Exam Extremities Exam: Pedal Edema Assessment and Plan (1) CHF (congestive heart failure) Status: Acute (2) Rapid atrial fibrillation Status: Acute (3) Myelodysplasia (myelodysplastic syndrome) Status: Chronic (4) Pulmonary embolism on long-term anticoagulation therapy Status: Acute (5) Pulmonary embolism Status: Chronic (6) Fever Status: Acute - Assessment and Plan (Free Text) Assessment: A/P: Continue medications. Apprciate GI, ID and Hematology notes. Source fo fever unclear.
--- NOTE | 2017-06-26 18:53 | CP.PCM.PN ---
Subjective - Date & Time of Evaluation Date of Evaluation: 06/26/17 Time of Evaluation: 09:00 - Subjective Subjective: CT noted severe colitis/ ? infiltrates Vanco IV added RX in progress Objective - Vital Signs/Intake and Output Vital Signs (last 24 hours): Temp Pulse Resp BP Pulse Ox 97.6 F 93 H 20 105/69 99 06/26/17 17:45 06/26/17 17:45 06/26/17 17:45 06/26/17 17:45 06/26/17 17:45 Intake and Output: 06/26/17 06/26/17 06:59 18:59 Intake Total 200 300 Balance 200 300 - Medications Medications: Current Medications Acetaminophen (Tylenol 325mg Tab) 650 mg PO Q6 PRN PRN Reason: Pain, Mild (1-3) Last Admin: 06/26/17 09:25 Dose: 650 mg Apixaban (Eliquis) 5 mg PO BID [facility] Last Admin: 06/24/17 11:18 Dose: 5 mg Aspirin (Aspirin Chewable) 81 mg PO DAILY [facility] Last Admin: 06/24/17 11:18 Dose: 81 mg Dicyclomine HCl (Bentyl) 10 mg PO BID [facility] Last Admin: 06/26/17 17:40 Dose: 10 mg Epoetin Woody (Procrit) 10,000 unit SC TTS [facility] Last Admin: 06/26/17 10:44 Dose: 10,000 unit Furosemide (Lasix) 20 mg PO BID [facility] Last Admin: 06/26/17 17:40 Dose: 20 mg Metronidazole (Flagyl) 500 mg in 100 mls @ 100 mls/hr IVPB Q8 [facility] Last Admin: 06/26/17 13:46 Dose: 100 mls/hr Fluconazole (Diflucan Iv 200 Mg/100 Ml Ns) 100 mls @ 100 mls/hr IVPB DAILY [facility] Last Admin: 06/26/17 10:43 Dose: 100 mls/hr Losartan Potassium (Cozaar) 25 mg PO DAILY [facility] Last Admin: 06/23/17 10:03 Dose: Not Given Methimazole (Tapazole) 5 mg PO DAILY [facility] Last Admin: 06/26/17 10:44 Dose: 5 mg Metoprolol Succinate (Toprol Xl) 25 mg PO DAILY [facility] Last Admin: 06/24/17 11:19 Dose: 25 mg Multivitamins (Hexavitamin) 1 tab PO DAILY [facility] Last Admin: 06/26/17 10:45 Dose: 1 tab Prednisone (Prednisone Tab) 5 mg PO DAILY [facility] Last Admin: 06/26/17 10:45 Dose: 5 mg Vancomycin HCl (Vancocin (Oral Or Rectal Use)) 250 mg PO QID [facility] Last Admin: 06/26/17 17:31 Dose: 250 mg - Labs Labs: 06/25/17 06:34 06/26/17 10:14 PT 19.3 SECONDS (9.7-12.2) H 06/15/17 13:26 INR 1.7 06/15/17 13:26 APTT 34 SECONDS (21-34) 06/15/17 13:26 - Constitutional Appears: Cachectic, Chronically Ill - Head Exam Head Exam: NORMOCEPHALIC - Eye Exam Eye Exam: PERRL. absent: Scleral icterus - ENT Exam ENT Exam: Mucous Membranes Dry - Neck Exam Neck Exam: absent: Lymphadenopathy - Respiratory Exam Respiratory Exam: Decreased Breath Sounds - Cardiovascular Exam Cardiovascular Exam: REGULAR RHYTHM - GI/Abdominal Exam GI & Abdominal Exam: Distended - Rectal Exam Rectal Exam: Deferred - Exam Exam: NORMAL INSPECTION - Extremities Exam Extremities Exam: Pedal Edema - Back Exam Back Exam: absent: CVA tenderness (L), CVA tenderness (R) Assessment and Plan (1) CHF (congestive heart failure) Status: Acute (2) Rapid atrial fibrillation Status: Acute (3) CAD (coronary artery disease) Status: Acute (4) Cough Status: Acute (5) Dehydration Status: Acute (6) Hyponatremia Status: Acute (7) Lower respiratory infection Status: Acute (8) Myelodysplasia (myelodysplastic syndrome) Status: Acute
[2017-06-26] MEDS ORDERED: Vancomycin 1 gm/NS 200 ml 1 GM/200 ML BAG IVPB ONE (19:00)
--- NOTE | 2017-06-26 20:40 | CP.PCM.PN ---
Subjective - Date & Time of Evaluation Date of Evaluation: 06/26/17 Time of Evaluation: 20:37 - Subjective Subjective: The patient is weak, diarrhea persists, appetite better as per patient. PRBC transfusion yesterday, tolerated well by patient but developed fever during second unit, which was then D/Ludwig. Getting potassium PO, getting OOB to chair Objective - Vital Signs/Intake and Output Vital Signs (last 24 hours): Temp Pulse Resp BP Pulse Ox 97.6 F 93 H 20 105/69 99 06/26/17 17:45 06/26/17 17:45 06/26/17 17:45 06/26/17 17:45 06/26/17 17:45 Intake and Output: 06/26/17 06/27/17 18:59 06:59 Intake Total 300 Balance 300 - Medications Medications: Current Medications Acetaminophen (Tylenol 325mg Tab) 650 mg PO Q6 PRN PRN Reason: Pain, Mild (1-3) Last Admin: 06/26/17 09:25 Dose: 650 mg Apixaban (Eliquis) 5 mg PO BID [facility] Last Admin: 06/24/17 11:18 Dose: 5 mg Aspirin (Aspirin Chewable) 81 mg PO DAILY [facility] Last Admin: 06/24/17 11:18 Dose: 81 mg Dicyclomine HCl (Bentyl) 10 mg PO BID [facility] Last Admin: 06/26/17 17:40 Dose: 10 mg Epoetin Woody (Procrit) 10,000 unit SC TTS [facility] Last Admin: 06/26/17 10:44 Dose: 10,000 unit Furosemide (Lasix) 20 mg PO BID [facility] Last Admin: 06/26/17 17:40 Dose: 20 mg Metronidazole (Flagyl) 500 mg in 100 mls @ 100 mls/hr IVPB Q8 [facility] Last Admin: 06/26/17 13:46 Dose: 100 mls/hr Fluconazole (Diflucan Iv 200 Mg/100 Ml Ns) 100 mls @ 100 mls/hr IVPB DAILY [facility] Last Admin: 06/26/17 10:43 Dose: 100 mls/hr Losartan Potassium (Cozaar) 25 mg PO DAILY [facility] Last Admin: 06/23/17 10:03 Dose: Not Given Methimazole (Tapazole) 5 mg PO DAILY [facility] Last Admin: 06/26/17 10:44 Dose: 5 mg Metoprolol Succinate (Toprol Xl) 25 mg PO DAILY [facility] Last Admin: 06/24/17 11:19 Dose: 25 mg Multivitamins (Hexavitamin) 1 tab PO DAILY [facility] Last Admin: 06/26/17 10:45 Dose: 1 tab Prednisone (Prednisone Tab) 5 mg PO DAILY [facility] Last Admin: 06/26/17 10:45 Dose: 5 mg Vancomycin HCl (Vancocin (Oral Or Rectal Use)) 250 mg PO QID [facility] Last Admin: 06/26/17 17:31 Dose: 250 mg - Labs Labs: 06/25/17 06:34 06/26/17 10:14 PT 19.3 SECONDS (9.7-12.2) H 06/15/17 13:26 INR 1.7 06/15/17 13:26 APTT 34 SECONDS (21-34) 06/15/17 13:26 Assessment and Plan (1) Myelodysplasia (myelodysplastic syndrome) Assessment & Plan: MDS, severe anemia persists, the patient is unable to tolerate more than 1 unit at a time. Continue PRN transfusions, epogen. The patient with new increase in bands in the periphery, ?secondary to the fever , the patient is clinically unchanged. Will order lab work tomorrow Status: Chronic
--- NOTE | 2017-06-26 23:15 | CP.PCM.PN ---
Subjective - Date & Time of Evaluation Date of Evaluation: 06/25/17 Time of Evaluation: 07:55 - Subjective Subjective: mild diarrhea will get second unit of prbc transfusion no chest pain Objective - Vital Signs/Intake and Output Vital Signs (last 24 hours): Temp Pulse Resp BP Pulse Ox 97.6 F 93 H 20 105/69 99 06/26/17 17:45 06/26/17 17:45 06/26/17 17:45 06/26/17 17:45 06/26/17 17:45 Intake and Output: 06/26/17 06/27/17 18:59 06:59 Intake Total 300 Balance 300 - Medications Medications: Current Medications Acetaminophen (Tylenol 325mg Tab) 650 mg PO Q6 PRN PRN Reason: Pain, Mild (1-3) Last Admin: 06/26/17 09:25 Dose: 650 mg Apixaban (Eliquis) 5 mg PO BID [facility] Last Admin: 06/24/17 11:18 Dose: 5 mg Aspirin (Aspirin Chewable) 81 mg PO DAILY [facility] Last Admin: 06/24/17 11:18 Dose: 81 mg Dicyclomine HCl (Bentyl) 10 mg PO BID [facility] Last Admin: 06/26/17 17:40 Dose: 10 mg Epoetin Woody (Procrit) 10,000 unit SC TTS [facility] Last Admin: 06/26/17 10:44 Dose: 10,000 unit Furosemide (Lasix) 20 mg PO BID [facility] Last Admin: 06/26/17 17:40 Dose: 20 mg Metronidazole (Flagyl) 500 mg in 100 mls @ 100 mls/hr IVPB Q8 [facility] Last Admin: 06/26/17 13:46 Dose: 100 mls/hr Fluconazole (Diflucan Iv 200 Mg/100 Ml Ns) 100 mls @ 100 mls/hr IVPB DAILY [facility] Last Admin: 06/26/17 10:43 Dose: 100 mls/hr Losartan Potassium (Cozaar) 25 mg PO DAILY [facility] Last Admin: 06/23/17 10:03 Dose: Not Given Methimazole (Tapazole) 5 mg PO DAILY [facility] Last Admin: 06/26/17 10:44 Dose: 5 mg Metoprolol Succinate (Toprol Xl) 25 mg PO DAILY [facility] Last Admin: 06/24/17 11:19 Dose: 25 mg Multivitamins (Hexavitamin) 1 tab PO DAILY [facility] Last Admin: 06/26/17 10:45 Dose: 1 tab Prednisone (Prednisone Tab) 5 mg PO DAILY [facility] Last Admin: 06/26/17 10:45 Dose: 5 mg Vancomycin HCl (Vancocin (Oral Or Rectal Use)) 250 mg PO QID [facility] Last Admin: 06/26/17 17:31 Dose: 250 mg - Labs Labs: 06/25/17 06:34 06/26/17 10:14 PT 19.3 SECONDS (9.7-12.2) H 06/15/17 13:26 INR 1.7 06/15/17 13:26 APTT 34 SECONDS (21-34) 06/15/17 13:26 - Constitutional Appears: Non-toxic - Head Exam Head Exam: NORMAL INSPECTION - Eye Exam Eye Exam: absent: PERRL - ENT Exam ENT Exam: absent: Mucous Membranes Moist - Neck Exam Neck Exam: Full ROM - Respiratory Exam Respiratory Exam: NORMAL BREATHING PATTERN - Cardiovascular Exam Cardiovascular Exam: REGULAR RHYTHM - GI/Abdominal Exam GI & Abdominal Exam: Soft. absent: Tenderness - Extremities Exam Extremities Exam: Pedal Edema - Neurological Exam Neurological Exam: Alert. absent: Awake Assessment and Plan - Assessment and Plan (Free Text) Assessment: CAD CHF MDS w/ severe anemia T2dm Afib Cdif colitis Plan: Elixis and ASA on hold due to acute drop of H/H Will resume AC once ok from Heme and GI
--- NOTE | 2017-06-26 23:22 | CP.PCM.PN ---
Subjective - Date & Time of Evaluation Date of Evaluation: 06/25/17 Time of Evaluation: 08:05 - Subjective Subjective: pt developed fever while getting transfusion first unit last night Objective - Vital Signs/Intake and Output Vital Signs (last 24 hours): Temp Pulse Resp BP Pulse Ox 97.6 F 93 H 20 105/69 99 06/26/17 17:45 06/26/17 17:45 06/26/17 17:45 06/26/17 17:45 06/26/17 17:45 Intake and Output: 06/26/17 06/27/17 18:59 06:59 Intake Total 300 Balance 300 - Medications Medications: Current Medications Acetaminophen (Tylenol 325mg Tab) 650 mg PO Q6 PRN PRN Reason: Pain, Mild (1-3) Last Admin: 06/26/17 09:25 Dose: 650 mg Apixaban (Eliquis) 5 mg PO BID [facility] Last Admin: 06/24/17 11:18 Dose: 5 mg Aspirin (Aspirin Chewable) 81 mg PO DAILY [facility] Last Admin: 06/24/17 11:18 Dose: 81 mg Dicyclomine HCl (Bentyl) 10 mg PO BID [facility] Last Admin: 06/26/17 17:40 Dose: 10 mg Epoetin Woody (Procrit) 10,000 unit SC TTS [facility] Last Admin: 06/26/17 10:44 Dose: 10,000 unit Furosemide (Lasix) 20 mg PO BID [facility] Last Admin: 06/26/17 17:40 Dose: 20 mg Metronidazole (Flagyl) 500 mg in 100 mls @ 100 mls/hr IVPB Q8 [facility] Last Admin: 06/26/17 13:46 Dose: 100 mls/hr Fluconazole (Diflucan Iv 200 Mg/100 Ml Ns) 100 mls @ 100 mls/hr IVPB DAILY [facility] Last Admin: 06/26/17 10:43 Dose: 100 mls/hr Losartan Potassium (Cozaar) 25 mg PO DAILY [facility] Last Admin: 06/23/17 10:03 Dose: Not Given Methimazole (Tapazole) 5 mg PO DAILY [facility] Last Admin: 06/26/17 10:44 Dose: 5 mg Metoprolol Succinate (Toprol Xl) 25 mg PO DAILY [facility] Last Admin: 06/24/17 11:19 Dose: 25 mg Multivitamins (Hexavitamin) 1 tab PO DAILY [facility] Last Admin: 06/26/17 10:45 Dose: 1 tab Prednisone (Prednisone Tab) 5 mg PO DAILY [facility] Last Admin: 06/26/17 10:45 Dose: 5 mg Vancomycin HCl (Vancocin (Oral Or Rectal Use)) 250 mg PO QID [facility] Last Admin: 06/26/17 17:31 Dose: 250 mg - Labs Labs: 06/25/17 06:34 06/26/17 10:14 PT 19.3 SECONDS (9.7-12.2) H 06/15/17 13:26 INR 1.7 06/15/17 13:26 APTT 34 SECONDS (21-34) 06/15/17 13:26 - Constitutional Appears: Non-toxic - Eye Exam Eye Exam: absent: Scleral icterus - ENT Exam ENT Exam: Mucous Membranes Moist - Neck Exam Neck Exam: Full ROM - Respiratory Exam Respiratory Exam: Decreased Breath Sounds - Cardiovascular Exam Cardiovascular Exam: REGULAR RHYTHM - GI/Abdominal Exam GI & Abdominal Exam: Soft. absent: Tenderness - Extremities Exam Extremities Exam: absent: Pedal Edema - Neurological Exam Neurological Exam: Alert, Oriented x3 Assessment and Plan - Assessment and Plan (Free Text) Assessment: CAD MDS w/ severe anemia C dif colitis COPD Plan: Cont nebulizer tx AC on hold Will get second transfusion when ok with heme
--- NOTE | 2017-06-26 23:28 | CP.PCM.PN ---
Subjective - Date & Time of Evaluation Date of Evaluation: 06/24/17 Time of Evaluation: 08:30 - Subjective Subjective: awake NAD Objective - Vital Signs/Intake and Output Vital Signs (last 24 hours): Temp Pulse Resp BP Pulse Ox 97.6 F 93 H 20 105/69 99 06/26/17 17:45 06/26/17 17:45 06/26/17 17:45 06/26/17 17:45 06/26/17 17:45 Intake and Output: 06/26/17 06/27/17 18:59 06:59 Intake Total 300 Balance 300 - Medications Medications: Current Medications Acetaminophen (Tylenol 325mg Tab) 650 mg PO Q6 PRN PRN Reason: Pain, Mild (1-3) Last Admin: 06/26/17 09:25 Dose: 650 mg Apixaban (Eliquis) 5 mg PO BID [facility] Last Admin: 06/24/17 11:18 Dose: 5 mg Aspirin (Aspirin Chewable) 81 mg PO DAILY [facility] Last Admin: 06/24/17 11:18 Dose: 81 mg Dicyclomine HCl (Bentyl) 10 mg PO BID [facility] Last Admin: 06/26/17 17:40 Dose: 10 mg Epoetin Woody (Procrit) 10,000 unit SC TTS [facility] Last Admin: 06/26/17 10:44 Dose: 10,000 unit Furosemide (Lasix) 20 mg PO BID [facility] Last Admin: 06/26/17 17:40 Dose: 20 mg Metronidazole (Flagyl) 500 mg in 100 mls @ 100 mls/hr IVPB Q8 [facility] Last Admin: 06/26/17 13:46 Dose: 100 mls/hr Fluconazole (Diflucan Iv 200 Mg/100 Ml Ns) 100 mls @ 100 mls/hr IVPB DAILY [facility] Last Admin: 06/26/17 10:43 Dose: 100 mls/hr Losartan Potassium (Cozaar) 25 mg PO DAILY [facility] Last Admin: 06/23/17 10:03 Dose: Not Given Methimazole (Tapazole) 5 mg PO DAILY [facility] Last Admin: 06/26/17 10:44 Dose: 5 mg Metoprolol Succinate (Toprol Xl) 25 mg PO DAILY [facility] Last Admin: 06/24/17 11:19 Dose: 25 mg Multivitamins (Hexavitamin) 1 tab PO DAILY [facility] Last Admin: 06/26/17 10:45 Dose: 1 tab Prednisone (Prednisone Tab) 5 mg PO DAILY [facility] Last Admin: 06/26/17 10:45 Dose: 5 mg Vancomycin HCl (Vancocin (Oral Or Rectal Use)) 250 mg PO QID [facility] Last Admin: 06/26/17 17:31 Dose: 250 mg - Labs Labs: 06/25/17 06:34 06/26/17 10:14 PT 19.3 SECONDS (9.7-12.2) H 06/15/17 13:26 INR 1.7 06/15/17 13:26 APTT 34 SECONDS (21-34) 06/15/17 13:26 - Constitutional Appears: Non-toxic - Head Exam Head Exam: NORMAL INSPECTION - Eye Exam Eye Exam: absent: Scleral icterus - Neck Exam Neck Exam: Full ROM - Respiratory Exam Respiratory Exam: Decreased Breath Sounds - Cardiovascular Exam Cardiovascular Exam: Irregular Rhythm - GI/Abdominal Exam GI & Abdominal Exam: Soft. absent: Tenderness - Extremities Exam Extremities Exam: Pedal Edema - Neurological Exam Neurological Exam: Alert, Oriented x3 Assessment and Plan - Assessment and Plan (Free Text) Assessment: CAD COPD MDS w/ severe anemia C dif colitis Plan: Cont meds Transfusion prn AC on hold
--- NOTE | 2017-06-26 23:35 | CP.PCM.PN ---
Subjective - Date & Time of Evaluation Date of Evaluation: 06/20/17 Time of Evaluation: 08:15 - Subjective Subjective: Lying flat comfortably NAD mild diarrhea Objective - Vital Signs/Intake and Output Vital Signs (last 24 hours): Temp Pulse Resp BP Pulse Ox 97.6 F 93 H 20 105/69 99 06/26/17 17:45 06/26/17 17:45 06/26/17 17:45 06/26/17 17:45 06/26/17 17:45 Intake and Output: 06/26/17 06/27/17 18:59 06:59 Intake Total 300 Balance 300 - Medications Medications: Current Medications Acetaminophen (Tylenol 325mg Tab) 650 mg PO Q6 PRN PRN Reason: Pain, Mild (1-3) Last Admin: 06/26/17 09:25 Dose: 650 mg Apixaban (Eliquis) 5 mg PO BID [facility] Last Admin: 06/24/17 11:18 Dose: 5 mg Aspirin (Aspirin Chewable) 81 mg PO DAILY [facility] Last Admin: 06/24/17 11:18 Dose: 81 mg Dicyclomine HCl (Bentyl) 10 mg PO BID [facility] Last Admin: 06/26/17 17:40 Dose: 10 mg Epoetin Woody (Procrit) 10,000 unit SC TTS [facility] Last Admin: 06/26/17 10:44 Dose: 10,000 unit Furosemide (Lasix) 20 mg PO BID [facility] Last Admin: 06/26/17 17:40 Dose: 20 mg Metronidazole (Flagyl) 500 mg in 100 mls @ 100 mls/hr IVPB Q8 [facility] Last Admin: 06/26/17 13:46 Dose: 100 mls/hr Fluconazole (Diflucan Iv 200 Mg/100 Ml Ns) 100 mls @ 100 mls/hr IVPB DAILY [facility] Last Admin: 06/26/17 10:43 Dose: 100 mls/hr Losartan Potassium (Cozaar) 25 mg PO DAILY [facility] Last Admin: 06/23/17 10:03 Dose: Not Given Methimazole (Tapazole) 5 mg PO DAILY [facility] Last Admin: 06/26/17 10:44 Dose: 5 mg Metoprolol Succinate (Toprol Xl) 25 mg PO DAILY [facility] Last Admin: 06/24/17 11:19 Dose: 25 mg Multivitamins (Hexavitamin) 1 tab PO DAILY [facility] Last Admin: 06/26/17 10:45 Dose: 1 tab Prednisone (Prednisone Tab) 5 mg PO DAILY [facility] Last Admin: 06/26/17 10:45 Dose: 5 mg Vancomycin HCl (Vancocin (Oral Or Rectal Use)) 250 mg PO QID [facility] Last Admin: 06/26/17 17:31 Dose: 250 mg - Labs Labs: 06/25/17 06:34 06/26/17 10:14 PT 19.3 SECONDS (9.7-12.2) H 06/15/17 13:26 INR 1.7 06/15/17 13:26 APTT 34 SECONDS (21-34) 06/15/17 13:26 - Constitutional Appears: Non-toxic - Head Exam Head Exam: ATRAUMATIC - Eye Exam Eye Exam: absent: Scleral icterus - ENT Exam ENT Exam: Mucous Membranes Moist - Neck Exam Neck Exam: Full ROM - Respiratory Exam Respiratory Exam: Decreased Breath Sounds - Cardiovascular Exam Cardiovascular Exam: Irregular Rhythm - GI/Abdominal Exam GI & Abdominal Exam: Soft. absent: Tenderness - Extremities Exam Extremities Exam: absent: Pedal Edema Assessment and Plan - Assessment and Plan (Free Text) Assessment: CAD MDS w/ anemia Afib COPD? C dif colitis Plan: Off steroids Cont nebulizer tx Case discussed w/ family
--- NOTE | 2017-06-26 23:43 | CP.PCM.PN ---
Subjective - Date & Time of Evaluation Date of Evaluation: 06/21/17 Time of Evaluation: 09:00 - Subjective Subjective: weak mild diarrhea w/ soft formed stool Objective - Vital Signs/Intake and Output Vital Signs (last 24 hours): Temp Pulse Resp BP Pulse Ox 97.6 F 93 H 20 105/69 99 06/26/17 17:45 06/26/17 17:45 06/26/17 17:45 06/26/17 17:45 06/26/17 17:45 Intake and Output: 06/26/17 06/27/17 18:59 06:59 Intake Total 300 Balance 300 - Medications Medications: Current Medications Acetaminophen (Tylenol 325mg Tab) 650 mg PO Q6 PRN PRN Reason: Pain, Mild (1-3) Last Admin: 06/26/17 09:25 Dose: 650 mg Apixaban (Eliquis) 5 mg PO BID [facility] Last Admin: 06/24/17 11:18 Dose: 5 mg Aspirin (Aspirin Chewable) 81 mg PO DAILY [facility] Last Admin: 06/24/17 11:18 Dose: 81 mg Dicyclomine HCl (Bentyl) 10 mg PO BID [facility] Last Admin: 06/26/17 17:40 Dose: 10 mg Epoetin Woody (Procrit) 10,000 unit SC TTS [facility] Last Admin: 06/26/17 10:44 Dose: 10,000 unit Furosemide (Lasix) 20 mg PO BID [facility] Last Admin: 06/26/17 17:40 Dose: 20 mg Metronidazole (Flagyl) 500 mg in 100 mls @ 100 mls/hr IVPB Q8 [facility] Last Admin: 06/26/17 13:46 Dose: 100 mls/hr Fluconazole (Diflucan Iv 200 Mg/100 Ml Ns) 100 mls @ 100 mls/hr IVPB DAILY [facility] Last Admin: 06/26/17 10:43 Dose: 100 mls/hr Losartan Potassium (Cozaar) 25 mg PO DAILY [facility] Last Admin: 06/23/17 10:03 Dose: Not Given Methimazole (Tapazole) 5 mg PO DAILY [facility] Last Admin: 06/26/17 10:44 Dose: 5 mg Metoprolol Succinate (Toprol Xl) 25 mg PO DAILY [facility] Last Admin: 06/24/17 11:19 Dose: 25 mg Multivitamins (Hexavitamin) 1 tab PO DAILY [facility] Last Admin: 06/26/17 10:45 Dose: 1 tab Prednisone (Prednisone Tab) 5 mg PO DAILY [facility] Last Admin: 06/26/17 10:45 Dose: 5 mg Vancomycin HCl (Vancocin (Oral Or Rectal Use)) 250 mg PO QID [facility] Last Admin: 06/26/17 17:31 Dose: 250 mg - Labs Labs: 06/25/17 06:34 06/26/17 10:14 PT 19.3 SECONDS (9.7-12.2) H 06/15/17 13:26 INR 1.7 06/15/17 13:26 APTT 34 SECONDS (21-34) 06/15/17 13:26 - Constitutional Appears: No Acute Distress - Neck Exam Neck Exam: Full ROM - Respiratory Exam Respiratory Exam: Decreased Breath Sounds - Cardiovascular Exam Cardiovascular Exam: Irregular Rhythm - GI/Abdominal Exam GI & Abdominal Exam: Soft - Extremities Exam Extremities Exam: absent: Pedal Edema - Neurological Exam Neurological Exam: Alert, Oriented x3 Assessment and Plan - Assessment and Plan (Free Text) Assessment: CAD Afib C dif colitis MDS w/ severe anemia Plan: Transfusion prn Nebulizer tx AC Occasional stool for guaiac to rule out GI bleed
--- NOTE | 2017-06-26 23:57 | CP.PCM.PN ---
Subjective - Date & Time of Evaluation Date of Evaluation: 06/23/17 Time of Evaluation: 08:50 - Subjective Subjective: no chest pain low BP mild diarrhea Objective - Vital Signs/Intake and Output Vital Signs (last 24 hours): Temp Pulse Resp BP Pulse Ox 97.6 F 93 H 20 105/69 99 06/26/17 17:45 06/26/17 17:45 06/26/17 17:45 06/26/17 17:45 06/26/17 17:45 Intake and Output: 06/26/17 06/27/17 18:59 06:59 Intake Total 300 Balance 300 - Medications Medications: Current Medications Acetaminophen (Tylenol 325mg Tab) 650 mg PO Q6 PRN PRN Reason: Pain, Mild (1-3) Last Admin: 06/26/17 09:25 Dose: 650 mg Apixaban (Eliquis) 5 mg PO BID [facility] Last Admin: 06/24/17 11:18 Dose: 5 mg Aspirin (Aspirin Chewable) 81 mg PO DAILY [facility] Last Admin: 06/24/17 11:18 Dose: 81 mg Dicyclomine HCl (Bentyl) 10 mg PO BID [facility] Last Admin: 06/26/17 17:40 Dose: 10 mg Epoetin Woody (Procrit) 10,000 unit SC TTS [facility] Last Admin: 06/26/17 10:44 Dose: 10,000 unit Furosemide (Lasix) 20 mg PO BID [facility] Last Admin: 06/26/17 17:40 Dose: 20 mg Metronidazole (Flagyl) 500 mg in 100 mls @ 100 mls/hr IVPB Q8 [facility] Last Admin: 06/26/17 13:46 Dose: 100 mls/hr Fluconazole (Diflucan Iv 200 Mg/100 Ml Ns) 100 mls @ 100 mls/hr IVPB DAILY [facility] Last Admin: 06/26/17 10:43 Dose: 100 mls/hr Losartan Potassium (Cozaar) 25 mg PO DAILY [facility] Last Admin: 06/23/17 10:03 Dose: Not Given Methimazole (Tapazole) 5 mg PO DAILY [facility] Last Admin: 06/26/17 10:44 Dose: 5 mg Metoprolol Succinate (Toprol Xl) 25 mg PO DAILY [facility] Last Admin: 06/24/17 11:19 Dose: 25 mg Multivitamins (Hexavitamin) 1 tab PO DAILY [facility] Last Admin: 06/26/17 10:45 Dose: 1 tab Prednisone (Prednisone Tab) 5 mg PO DAILY [facility] Last Admin: 06/26/17 10:45 Dose: 5 mg Vancomycin HCl (Vancocin (Oral Or Rectal Use)) 250 mg PO QID [facility] Last Admin: 06/26/17 17:31 Dose: 250 mg - Labs Labs: 06/25/17 06:34 06/26/17 10:14 PT 19.3 SECONDS (9.7-12.2) H 06/15/17 13:26 INR 1.7 06/15/17 13:26 APTT 34 SECONDS (21-34) 06/15/17 13:26 - Constitutional Appears: Non-toxic, Chronically Ill - Eye Exam Eye Exam: absent: Scleral icterus - Neck Exam Neck Exam: Full ROM - Respiratory Exam Respiratory Exam: Decreased Breath Sounds - Cardiovascular Exam Cardiovascular Exam: Irregular Rhythm - GI/Abdominal Exam GI & Abdominal Exam: Soft - Extremities Exam Extremities Exam: absent: Pedal Edema Assessment and Plan - Assessment and Plan (Free Text) Assessment: CAD A fib MDS w/ severe anemia Lower respiratory infection Plan: Cont hold anti-HTN prn Fluid challenge as order prn for low BP Cont abtx as per ID
--- NOTE | 2017-06-27 00:08 | CP.PCM.PN ---
Subjective - Date & Time of Evaluation Date of Evaluation: 06/22/17 Time of Evaluation: 10:15 - Subjective Subjective: on and off fever - source unclear NAD mild diarrhea Objective - Vital Signs/Intake and Output Vital Signs (last 24 hours): Temp Pulse Resp BP Pulse Ox 97.6 F 93 H 20 105/69 99 06/26/17 17:45 06/26/17 17:45 06/26/17 17:45 06/26/17 17:45 06/26/17 17:45 Intake and Output: 06/26/17 06/27/17 18:59 06:59 Intake Total 300 Balance 300 - Medications Medications: Current Medications Acetaminophen (Tylenol 325mg Tab) 650 mg PO Q6 PRN PRN Reason: Pain, Mild (1-3) Last Admin: 06/26/17 09:25 Dose: 650 mg Apixaban (Eliquis) 5 mg PO BID [facility] Last Admin: 06/24/17 11:18 Dose: 5 mg Aspirin (Aspirin Chewable) 81 mg PO DAILY [facility] Last Admin: 06/24/17 11:18 Dose: 81 mg Dicyclomine HCl (Bentyl) 10 mg PO BID [facility] Last Admin: 06/26/17 17:40 Dose: 10 mg Epoetin Woody (Procrit) 10,000 unit SC TTS [facility] Last Admin: 06/26/17 10:44 Dose: 10,000 unit Furosemide (Lasix) 20 mg PO BID [facility] Last Admin: 06/26/17 17:40 Dose: 20 mg Metronidazole (Flagyl) 500 mg in 100 mls @ 100 mls/hr IVPB Q8 [facility] Last Admin: 06/26/17 13:46 Dose: 100 mls/hr Fluconazole (Diflucan Iv 200 Mg/100 Ml Ns) 100 mls @ 100 mls/hr IVPB DAILY [facility] Last Admin: 06/26/17 10:43 Dose: 100 mls/hr Losartan Potassium (Cozaar) 25 mg PO DAILY [facility] Last Admin: 06/23/17 10:03 Dose: Not Given Methimazole (Tapazole) 5 mg PO DAILY [facility] Last Admin: 06/26/17 10:44 Dose: 5 mg Metoprolol Succinate (Toprol Xl) 25 mg PO DAILY [facility] Last Admin: 06/24/17 11:19 Dose: 25 mg Multivitamins (Hexavitamin) 1 tab PO DAILY [facility] Last Admin: 06/26/17 10:45 Dose: 1 tab Prednisone (Prednisone Tab) 5 mg PO DAILY [facility] Last Admin: 06/26/17 10:45 Dose: 5 mg Vancomycin HCl (Vancocin (Oral Or Rectal Use)) 250 mg PO QID [facility] Last Admin: 06/26/17 17:31 Dose: 250 mg - Labs Labs: 06/25/17 06:34 06/26/17 10:14 PT 19.3 SECONDS (9.7-12.2) H 06/15/17 13:26 INR 1.7 06/15/17 13:26 APTT 34 SECONDS (21-34) 06/15/17 13:26 - Constitutional Appears: Non-toxic, Chronically Ill - Head Exam Head Exam: ATRAUMATIC - Eye Exam Eye Exam: Scleral icterus - Neck Exam Neck Exam: Full ROM - Respiratory Exam Respiratory Exam: Decreased Breath Sounds - Cardiovascular Exam Cardiovascular Exam: Irregular Rhythm - GI/Abdominal Exam GI & Abdominal Exam: Soft. absent: Tenderness - Extremities Exam Extremities Exam: absent: Pedal Edema - Neurological Exam Neurological Exam: Alert Assessment and Plan - Assessment and Plan (Free Text) Assessment: Dehydration CAD Afib MDS w/ severe anemia C dif colitis Lower resp tract infection Plan: fluid challenge prn Cont Abtx
[2017-06-27] MEDS: metroNIDAZOLE IV 500 mg/100 ml 500 MG/100 ML BAG IVPB SCH ×3 (05:38→21:40)
[2017-06-27 05:54] LABS: TB ANTIGEN MINUS NIL 0.02 IU/mL
[2017-06-27 07:01] LABS: ALB/GLOB RATIO 0.7 (1.0-2.1); ALBUMIN 2.2 g/dL (3.5-5.0); ALT/SGPT 32 U/L (9-52); AST/SGOT 104 U/L (14-36); BLOOD UREA NITROGEN 12 mg/dL (7-17); CALCIUM 7.4 mg/dl (8.6-10.4); GFR AFRICAN-AMERICAN > 60; GFR NON-AFRICAN AMERICAN > 60
[2017-06-27 07:34] LABS: BASO % 0.4 % (0.0-2.0); EOS # 0.2 K/uL (0.0-0.7); EOS % 1.5 % (0.0-4.0); HEMOGLOBIN 8.3 g/dL (11.0-16.0); LYMPH # 0.4 K/uL (1.0-4.3); LYMPH % 3.9 % (20.0-40.0); MEAN CELL VOLUME 86.7 fL (81.0-99.0); MEAN CORPUSCULAR HEMOGLOBIN 29.2 pg (27.0-31.0); MEAN CORPUSCULAR HGB CONC 33.6 g/dL (33.0-37.0); MEAN PLATELET VOLUME 9.1 fL (7.2-11.7); MONO # 0.1 K/uL (0.0-0.8); MONO % 1.4 % (0.0-10.0); NEUT # 9.5 K/uL (1.8-7.0); NEUT % 92.8 % (50.0-75.0); NRBC % 0.2 % (0.0-2.0); PLATELET COUNT 439 K/uL (130-400); RBC 2.83 Mil/uL (3.80-5.20); RED CELL DISTRIBUTION WIDTH 16.4 % (11.5-14.5); WHITE BLOOD COUNT 10.2 K/uL (4.8-10.8)
--- NOTE | 2017-06-27 07:39 | PN ---
DATE: 06/26/2017 FOLLOWUP RENAL CONSULTATION: . LOCATION: The patient is located in room 551, bed B. REQUESTED BY: Deion Marie MD. REASON FOR FOLLOWUP: Hyponatremia, prerenal azotemia. SUBJECTIVE: Mrs. Espino is a 77 years old elderly [place] female with a past medical history significant for hypertension, AFib, CHF, pulmonary embolism, and also questionable thrombus in the distal RCA, on anticoagulation and also myelodysplastic syndrome, anemia, multiple transfusions, was admitted with shortness of breath within few hours after discharge from the [facility]. The patient still complaints of weakness and patient is receiving transfusion, but she has a fever this morning, and as per the PMD, transfusion was on hold. PHYSICAL EXAMINATION: VITAL SIGNS: This morning as follows, blood pressure 116/69, pulse 102, respirations 20, temperature 98.2, and temperature at 9:15 is 101.7. Height 5 feet 2 inches, weight is 124 pounds. GENERAL: Mrs. Espino is a 77 years elderly female, moderately-built, moderately-nourished, not in acute distress. HEENT: Pupils are normal and reactive to light and accommodation. Conjunctivae pink. Sclerae anicteric. Tongue is moist. Trachea is midline. LUNGS: Symmetric on both sides. Bilateral breath sounds present. Bilateral basal crackles present. CVS: [place] at the fifth intercostal space, midclavicular line. S1, S2 audible. No murmur, gallop. ABDOMEN: Normal in appearance. Soft, tympanitic. No guarding. No rigidity. No hepatosplenomegaly. ADOLESCENT PSYCHIATRIST: The patient is alert, awake, and oriented x3. Nonfocal neuro examination. Cranial nerves II through XII grossly intact. Sensory and motor system is within normal limits. EXTREMITIES: No cyanosis, no clubbing. The patient has a 1 to 2+ edema in both lower extremities. CURRENT MEDICATIONS: Include as follows: Aspirin on hold, losartan on hold, Eliquis on hold, and metoprolol on hold. The patient is also on Bentyl and Diflucan 200 mg daily, multivitamin 1 tablet daily, Lasix 20 mg started this morning p.o. b.i.d., prednisone 5 mg daily, Procrit 10,000 units 3 times a week, Tylenol and vancomycin 250 mg p.o. q.i.d. LABORATORY DATA: This morning, no new labs are available. CBC this morning, as of 06/25/2017, WBC 10, hemoglobin 7.5, hematocrit is 21.3, platelets 456. Neutrophils 55, bands 31, lymph 3, and monos 9. As of 06/26/2017, sodium 132, potassium 3.5, chloride 98, CO2 of 28, BUN 16, creatinine 0.5, glucose 129, calcium 7.7, total bili 0.6, AST 18, ALT 28, alkaline phosphatase 68, total protein 5.1, albumin is 2.2. Repeat potassium is 3.3, BUN 15, creatinine 0.4. Urinalysis, renee color, hazy, pH of 5, specific gravity 1.024, protein 1+, glucose normal, ketones negative, blood is trace, nitrites negative, leukocyte esterase is 1+, and urobilinogen is normal, wbc 19, rbc 12, and bacteria is rare. Stool for C. diff toxin negative as of 06/23/2017. Influenza A and B antibody is negative as of 06/22/2017. Urine culture as of 06/24/2017, positive for gram-positive cocci; 10,000 to colony-forming units per mL. IMPRESSION: In summary, Mrs. Espino is a 77 years elderly [place] female with a history of hypertension, congestive heart failure, atrial fibrillation, pulmonary embolism, and questionable thrombus in the distal RCA, myelodysplastic syndrome, anemia, multiple transfusions, hyponatremia, increased BUN and creatinine. 1. Hyponatremia, he cannot rule out syndrome of inappropriate antidiuretic hormone secretion versus secondary to thyroid disorder, hyperparathyroidism. 2. Prerenal azotemia. Renal function is slightly improving. We will discontinue sodium chloride tablets, and we will start on Lasix 20 mg p.o. b.i.d. Follow up with Hematology/Oncology service with . Continue Procrit, and we will follow with you. Thank you for allowing me to participate in your patient's care. Continue to monitor serum sodium and follow with GI evaluation with Dr. Thurman. Rehan Dos Santos MD
--- NOTE | 2017-06-27 08:24 | CP.PCM.PN ---
Subjective - Date & Time of Evaluation Date of Evaluation: 06/27/17 Time of Evaluation: 08:20 - Subjective Subjective: Patient complains of shortness of breath. Objective - Vital Signs/Intake and Output Vital Signs (last 24 hours): Temp Pulse Resp BP Pulse Ox 99.9 F H 116 H 20 126/61 99 06/27/17 07:05 06/27/17 07:40 06/27/17 07:05 06/27/17 07:05 06/27/17 07:05 - Medications Medications: Current Medications Acetaminophen (Tylenol 325mg Tab) 650 mg PO Q6 PRN PRN Reason: Pain, Mild (1-3) Last Admin: 06/27/17 00:29 Dose: 650 mg Apixaban (Eliquis) 5 mg PO BID [facility] Last Admin: 06/24/17 11:18 Dose: 5 mg Aspirin (Aspirin Chewable) 81 mg PO DAILY [facility] Last Admin: 06/24/17 11:18 Dose: 81 mg Bisacodyl (Dulcolax) 10 mg PO ONCE ONE Stop: 06/27/17 17:01 Dicyclomine HCl (Bentyl) 10 mg PO BID [facility] Last Admin: 06/26/17 17:40 Dose: 10 mg Epoetin Woody (Procrit) 10,000 unit SC TTS [facility] Last Admin: 06/26/17 10:44 Dose: 10,000 unit Furosemide (Lasix) 20 mg PO BID [facility] Last Admin: 06/26/17 17:40 Dose: 20 mg Metronidazole (Flagyl) 500 mg in 100 mls @ 100 mls/hr IVPB Q8 [facility] Last Admin: 06/27/17 05:38 Dose: 100 mls/hr Fluconazole (Diflucan Iv 200 Mg/100 Ml Ns) 100 mls @ 100 mls/hr IVPB DAILY [facility] Last Admin: 06/26/17 10:43 Dose: 100 mls/hr Losartan Potassium (Cozaar) 25 mg PO DAILY [facility] Last Admin: 06/23/17 10:03 Dose: Not Given Methimazole (Tapazole) 5 mg PO DAILY [facility] Last Admin: 06/26/17 10:44 Dose: 5 mg Metoprolol Succinate (Toprol Xl) 25 mg PO DAILY [facility] Last Admin: 06/24/17 11:19 Dose: 25 mg Multivitamins (Hexavitamin) 1 tab PO DAILY [facility] Last Admin: 06/26/17 10:45 Dose: 1 tab Polyethylene Glycol/Electrolytes (Golytely) 4,000 ml PO ONCE ONE Stop: 06/27/17 19:01 Prednisone (Prednisone Tab) 5 mg PO DAILY [facility] Last Admin: 06/26/17 10:45 Dose: 5 mg Vancomycin HCl (Vancocin (Oral Or Rectal Use)) 250 mg PO QID [facility] Last Admin: 06/26/17 23:00 Dose: 250 mg - Labs Labs: 06/27/17 06:30 06/27/17 06:30 PT 19.3 SECONDS (9.7-12.2) H 06/15/17 13:26 INR 1.7 06/15/17 13:26 APTT 34 SECONDS (21-34) 06/15/17 13:26 - Constitutional Appears: Chronically Ill - Head Exam Head Exam: ATRAUMATIC, NORMOCEPHALIC - Eye Exam Eye Exam: EOMI, PERRL - Neck Exam Neck Exam: absent: Lymphadenopathy, Thyromegaly - Respiratory Exam Respiratory Exam: NORMAL BREATHING PATTERN. absent: Rales, Rhonchi, Wheezes - Cardiovascular Exam Cardiovascular Exam: REGULAR RHYTHM, +S1, +S2. absent: Gallop, Rubs, Murmur - GI/Abdominal Exam GI & Abdominal Exam: Soft, Normal Bowel Sounds. absent: Tenderness, Mass, Organomegaly - Rectal Exam Rectal Exam: Deferred - Extremities Exam Extremities Exam: Pedal Edema Assessment and Plan (1) Fecal occult blood test positive Assessment & Plan: Repeat HGB is 8.3. Discussed with Dr. Sosa. Will schedule EGD/Colonoscopy provided patient is cleared by Cardiology and Pulmonary. repeat CXR and ABG ordered. Status: Acute
[2017-06-27 09:02] LABS: ANISOCYTOSIS SLIGHT; BANDS 37 % (0-2); EOSINOPHIL 1 % (0-4); LYMPHOCYTE 7 % (20-40); MONOCYTE 5 % (0-10); MYELOCYTE 2 % (0-0); NEUTROPHIL 47 % (50-75); PLATELET ESTIMATE SLIGHTLY INCREASED (NORMAL); REACTIVE LYMPHOCYTES 1 % (0-0); TOTAL CELLS COUNTED 100
[2017-06-27 09:03] LABS: HYPOCHROMIC SLIGHT; LARGE PLATELETS PRESENT; POIKILOCYTOSIS MODERATE
[2017-06-27 09:04] LABS: OVALOCYTES SLIGHT; SCHISTOCYTES SLIGHT; TARGET CELLS SLIGHT
[2017-06-27 09:05] LABS: BURR CELLS SLIGHT; TOXIC GRANULATION PRESENT
--- NOTE | 2017-06-27 10:03 | CP.PCM.PN ---
Subjective - Date & Time of Evaluation Date of Evaluation: 06/27/17 Time of Evaluation: 09:20 - Subjective Subjective: Patient seen and examined More short of breath Awake and responsive Afebrile Objective - Vital Signs/Intake and Output Vital Signs (last 24 hours): Temp Pulse Resp BP Pulse Ox 97.6 F 116 H 20 126/61 99 06/27/17 08:37 06/27/17 07:40 06/27/17 07:05 06/27/17 07:05 06/27/17 07:05 - Medications Medications: Current Medications Acetaminophen (Tylenol 325mg Tab) 650 mg PO Q6 PRN PRN Reason: Pain, Mild (1-3) Last Admin: 06/27/17 08:37 Dose: 650 mg Apixaban (Eliquis) 5 mg PO BID [facility] Last Admin: 06/24/17 11:18 Dose: 5 mg Aspirin (Aspirin Chewable) 81 mg PO DAILY [facility] Last Admin: 06/24/17 11:18 Dose: 81 mg Bisacodyl (Dulcolax) 10 mg PO ONCE ONE Stop: 06/27/17 17:01 Dicyclomine HCl (Bentyl) 10 mg PO BID [facility] Last Admin: 06/26/17 17:40 Dose: 10 mg Epoetin Woody (Procrit) 10,000 unit SC TTS [facility] Last Admin: 06/26/17 10:44 Dose: 10,000 unit Furosemide (Lasix) 20 mg PO BID [facility] Last Admin: 06/26/17 17:40 Dose: 20 mg Metronidazole (Flagyl) 500 mg in 100 mls @ 100 mls/hr IVPB Q8 [facility] Last Admin: 06/27/17 05:38 Dose: 100 mls/hr Fluconazole (Diflucan Iv 200 Mg/100 Ml Ns) 100 mls @ 100 mls/hr IVPB DAILY [facility] Last Admin: 06/26/17 10:43 Dose: 100 mls/hr Losartan Potassium (Cozaar) 25 mg PO DAILY [facility] Last Admin: 06/23/17 10:03 Dose: Not Given Methimazole (Tapazole) 5 mg PO DAILY [facility] Last Admin: 06/26/17 10:44 Dose: 5 mg Metoprolol Succinate (Toprol Xl) 25 mg PO DAILY [facility] Last Admin: 06/24/17 11:19 Dose: 25 mg Multivitamins (Hexavitamin) 1 tab PO DAILY [facility] Last Admin: 06/26/17 10:45 Dose: 1 tab Polyethylene Glycol/Electrolytes (Golytely) 4,000 ml PO ONCE ONE Stop: 06/27/17 19:01 Prednisone (Prednisone Tab) 5 mg PO DAILY [facility] Last Admin: 06/26/17 10:45 Dose: 5 mg Vancomycin HCl (Vancocin (Oral Or Rectal Use)) 250 mg PO QID [facility] Last Admin: 06/26/17 23:00 Dose: 250 mg - Labs Labs: 06/27/17 06:30 06/27/17 06:30 PT 19.3 SECONDS (9.7-12.2) H 06/15/17 13:26 INR 1.7 06/15/17 13:26 APTT 34 SECONDS (21-34) 06/15/17 13:26 - Head Exam Head Exam: ATRAUMATIC, NORMOCEPHALIC - ENT Exam ENT Exam: Normal Exam - Neck Exam Neck Exam: Normal Inspection - Respiratory Exam Respiratory Exam: Decreased Breath Sounds - Cardiovascular Exam Cardiovascular Exam: REGULAR RHYTHM - GI/Abdominal Exam GI & Abdominal Exam: Soft, Normal Bowel Sounds Assessment and Plan (1) SOB (shortness of breath) Assessment & Plan: Secondary to bilateral pleural effusion and possible pneumonia On vancomycin and Flagyl Start cefepime ABG the shock panel BiPAP Status: Acute (2) Myelodysplasia (myelodysplastic syndrome) Status: Acute
[2017-06-27] MEDS ORDERED: Cefepime IV 1 gm in Dextrose 1 GM/50 ML BAG IVPB SCH (10:15)
[2017-06-27 10:19] LABS: ABG ALLEN TEST POS; ARTERIAL BLOOD GAS HCO3 24.8 mmol/L (21-28); ARTERIAL BLOOD GAS O2 SAT 99.7 % (95-98); ARTERIAL BLOOD GAS PCO2 28 mm/Hg (35-45); ARTERIAL BLOOD GAS PO2 162 mm/Hg (80-100); ARTERIAL BLOOD GAS TCO2 22.7 mmol/L (22-28)
[2017-06-27] MEDS: methIMAzole 5 MG TAB PO SCH (10:21)
[2017-06-27] MEDS: Multiple Vitamins Tab PO SCH (10:22)
[2017-06-27] MEDS: Vancomycin 125 MG/5 ML SOLN (ORAL/RECTAL) PO SCH ×4 (10:28→21:37)
[2017-06-27] MEDS: Fluconazole IV 200mg/100 ml NS 100 ML IVPB SCH (10:28)
[2017-06-27] MEDS: MethylPREDNISolone 40 mg Vial IVP SCH ×2 (10:35→21:39)
[2017-06-27] MEDS ORDERED: Potassium Chloride 20 mEq ER Tab PO ONE (11:00)
--- NOTE | 2017-06-27 11:17 | RAD ---
HISTORY: SOB COMPARISON: Chest x-ray performed 06/22/17 TECHNIQUE: Chest, one view. FINDINGS: Numerous external wires and leads obscure evaluation of the underlying parenchyma. LUNGS: Pulmonary venous congestion. Please note that chest x-ray has limited sensitivity for the detection of pulmonary masses. PLEURA: Small bilateral pleural effusions. No definite pneumothorax . CARDIOVASCULAR: Cardiomegaly. Atherosclerotic calcifications of the aorta. OSSEOUS STRUCTURES: Mild degenerative changes. VISUALIZED UPPER ABDOMEN: Unremarkable. OTHER FINDINGS: None. IMPRESSION: Mild pulmonary venous congestion. Cardiomegaly. Small effusions.
[2017-06-27] MEDS: Cefepime IV 1 gm in Dextrose 1 GM/50 ML BAG IVPB SCH (11:24)
[2017-06-27 11:36] LABS: INR 1.6; PROTHROMBIN TIME 18.2 SECONDS (9.7-12.2)
[2017-06-27 12:52] LABS: SQUAMOUS EPITHIAL 8 /hpf (0-5); URINE BACTERIA RARE (<OCC); URINE BILIRUBIN NEGATIVE (NEGATIVE); URINE BLOOD NEGATIVE (NEGATIVE); URINE CLARITY Hazy (Clear); URINE COLOR Amber (YELLOW); URINE GLUCOSE (UA) NORMAL (Normal); URINE LEUKOCYTE ESTERASE 1+ Leu/uL (Negative); URINE NITRATE NEGATIVE (NEGATIVE); URINE PROTEIN 1+ mg/dL (NEGATIVE)
[2017-06-27] MEDS ORDERED: Bisacodyl 5mg EC Tab PO ONE (17:00)
--- NOTE | 2017-06-27 18:21 | CP.PCM.PN ---
Subjective - Date & Time of Evaluation Date of Evaluation: 06/27/17 Time of Evaluation: 09:00 - Subjective Subjective: fever / bandemia sorce unclear GI on board Objective - Vital Signs/Intake and Output Vital Signs (last 24 hours): Temp Pulse Resp BP Pulse Ox 97.8 F 95 H 20 102/65 99 06/27/17 16:07 06/27/17 16:07 06/27/17 16:07 06/27/17 16:07 06/27/17 16:07 - Medications Medications: Current Medications Acetaminophen (Tylenol 325mg Tab) 650 mg PO Q6 PRN PRN Reason: Pain, Mild (1-3) Last Admin: 06/27/17 08:37 Dose: 650 mg Apixaban (Eliquis) 5 mg PO BID [facility] Last Admin: 06/24/17 11:18 Dose: 5 mg Aspirin (Aspirin Chewable) 81 mg PO DAILY [facility] Last Admin: 06/24/17 11:18 Dose: 81 mg Dicyclomine HCl (Bentyl) 10 mg PO BID [facility] Last Admin: 06/27/17 17:25 Dose: 10 mg Epoetin Woody (Procrit) 10,000 unit SC TTS [facility] Last Admin: 06/26/17 10:44 Dose: 10,000 unit Furosemide (Lasix) 20 mg PO BID [facility] Last Admin: 06/27/17 10:22 Dose: 20 mg Metronidazole (Flagyl) 500 mg in 100 mls @ 100 mls/hr IVPB Q8 [facility] Last Admin: 06/27/17 14:10 Dose: 100 mls/hr Fluconazole (Diflucan Iv 200 Mg/100 Ml Ns) 100 mls @ 100 mls/hr IVPB DAILY [facility] Last Admin: 06/27/17 10:28 Dose: 100 mls/hr Cefepime HCl (Maxipime Iv 1 Gm Premix) 1 gm in 50 mls @ 100 mls/hr IVPB Q12H [facility] Last Admin: 06/27/17 11:24 Dose: 100 mls/hr Losartan Potassium (Cozaar) 25 mg PO DAILY [facility] Last Admin: 06/23/17 10:03 Dose: Not Given Methimazole (Tapazole) 5 mg PO DAILY [facility] Last Admin: 06/27/17 10:21 Dose: 5 mg Methylprednisolone (Solu-Medrol) 40 mg IVP Q12 [facility] Last Admin: 06/27/17 10:35 Dose: 40 mg Metoprolol Succinate (Toprol Xl) 25 mg PO DAILY [facility] Last Admin: 06/24/17 11:19 Dose: 25 mg Multivitamins (Hexavitamin) 1 tab PO DAILY [facility] Last Admin: 06/27/17 10:22 Dose: 1 tab Vancomycin HCl (Vancocin (Oral Or Rectal Use)) 250 mg PO QID [facility] Last Admin: 06/27/17 17:24 Dose: 250 mg - Labs Labs: 06/27/17 06:30 06/27/17 06:30 PT 18.2 SECONDS (9.7-12.2) H 06/27/17 11:09 INR 1.6 06/27/17 11:09 APTT 34 SECONDS (21-34) 06/15/17 13:26 - Constitutional Appears: Cachectic, Chronically Ill - Head Exam Head Exam: NORMOCEPHALIC - Eye Exam Eye Exam: PERRL - ENT Exam ENT Exam: Mucous Membranes Dry - Respiratory Exam Respiratory Exam: Decreased Breath Sounds, Clear to Ausculation Bilateral - Cardiovascular Exam Cardiovascular Exam: REGULAR RHYTHM, +S1, +S2 - GI/Abdominal Exam GI & Abdominal Exam: Distended, Soft - Rectal Exam Rectal Exam: Deferred - Exam Exam: NORMAL INSPECTION Assessment and Plan (1) CHF (congestive heart failure) Status: Acute (2) Rapid atrial fibrillation Status: Acute (3) CAD (coronary artery disease) Status: Acute (4) Cough Status: Acute (5) Dehydration Status: Acute (6) Hyponatremia Status: Acute (7) Lower respiratory infection Status: Acute (8) Myelodysplasia (myelodysplastic syndrome) Status: Acute - Assessment and Plan (Free Text) Assessment: severe MDS pneumomnia sepsis c diff anemia dehydration COPD resp insuff poor prognosis Dr Ruiz on board Plan: dr cantrell following- ? Leukemia
[2017-06-27] MEDS ORDERED: Peg-Electrolyte Oral Soln 4L (Golytely) PO ONE (19:00)
--- NOTE | 2017-06-27 19:11 | CP.PCM.PN ---
Subjective - Date & Time of Evaluation Date of Evaluation: 06/27/17 Time of Evaluation: 19:11 - Subjective Subjective: pt is seen and examined , follow up consult is dictated #[id number] Objective - Vital Signs/Intake and Output Vital Signs (last 24 hours): Temp Pulse Resp BP Pulse Ox 97.8 F 93 H 20 102/65 99 06/27/17 16:07 06/27/17 18:47 06/27/17 16:07 06/27/17 16:07 06/27/17 16:07 Intake and Output: 06/27/17 06/28/17 18:59 06:59 Intake Total 100 Balance 100 - Medications Medications: Current Medications Acetaminophen (Tylenol 325mg Tab) 650 mg PO Q6 PRN PRN Reason: Pain, Mild (1-3) Last Admin: 06/27/17 08:37 Dose: 650 mg Apixaban (Eliquis) 5 mg PO BID [facility] Last Admin: 06/24/17 11:18 Dose: 5 mg Aspirin (Aspirin Chewable) 81 mg PO DAILY [facility] Last Admin: 06/24/17 11:18 Dose: 81 mg Dicyclomine HCl (Bentyl) 10 mg PO BID [facility] Last Admin: 06/27/17 17:25 Dose: 10 mg Epoetin Woody (Procrit) 10,000 unit SC TTS [facility] Last Admin: 06/26/17 10:44 Dose: 10,000 unit Furosemide (Lasix) 20 mg PO BID [facility] Last Admin: 06/27/17 10:22 Dose: 20 mg Metronidazole (Flagyl) 500 mg in 100 mls @ 100 mls/hr IVPB Q8 [facility] Last Admin: 06/27/17 14:10 Dose: 100 mls/hr Fluconazole (Diflucan Iv 200 Mg/100 Ml Ns) 100 mls @ 100 mls/hr IVPB DAILY [facility] Last Admin: 06/27/17 10:28 Dose: 100 mls/hr Cefepime HCl (Maxipime Iv 1 Gm Premix) 1 gm in 50 mls @ 100 mls/hr IVPB Q12H [facility] Last Admin: 06/27/17 11:24 Dose: 100 mls/hr Losartan Potassium (Cozaar) 25 mg PO DAILY [facility] Last Admin: 06/23/17 10:03 Dose: Not Given Methimazole (Tapazole) 5 mg PO DAILY [facility] Last Admin: 06/27/17 10:21 Dose: 5 mg Methylprednisolone (Solu-Medrol) 40 mg IVP Q12 [facility] Last Admin: 06/27/17 10:35 Dose: 40 mg Metoprolol Succinate (Toprol Xl) 25 mg PO DAILY [facility] Last Admin: 06/24/17 11:19 Dose: 25 mg Multivitamins (Hexavitamin) 1 tab PO DAILY [facility] Last Admin: 06/27/17 10:22 Dose: 1 tab Vancomycin HCl (Vancocin (Oral Or Rectal Use)) 250 mg PO QID [facility] Last Admin: 06/27/17 17:24 Dose: 250 mg - Labs Labs: 06/27/17 06:30 06/27/17 06:30 PT 18.2 SECONDS (9.7-12.2) H 06/27/17 11:09 INR 1.6 06/27/17 11:09 APTT 34 SECONDS (21-34) 06/15/17 13:26
--- NOTE | 2017-06-27 19:57 | CP.PCM.PN ---
Subjective - Date & Time of Evaluation Date of Evaluation: 06/27/17 Time of Evaluation: 19:55 - Subjective Subjective: Pt feels weak. No CO, no SOB, (+) anasarcous, No N/V; 1 soft stool today, dec appetite; No dysuria, (+) incontinent Objective - Vital Signs/Intake and Output Vital Signs (last 24 hours): Temp Pulse Resp BP Pulse Ox 97.8 F 93 H 20 102/65 99 06/27/17 16:07 06/27/17 18:47 06/27/17 16:07 06/27/17 16:07 06/27/17 16:07 Intake and Output: 06/27/17 06/28/17 18:59 06:59 Intake Total 100 Balance 100 - Medications Medications: Current Medications Acetaminophen (Tylenol 325mg Tab) 650 mg PO Q6 PRN PRN Reason: Pain, Mild (1-3) Last Admin: 06/27/17 08:37 Dose: 650 mg Apixaban (Eliquis) 5 mg PO BID [facility] Last Admin: 06/24/17 11:18 Dose: 5 mg Aspirin (Aspirin Chewable) 81 mg PO DAILY [facility] Last Admin: 06/24/17 11:18 Dose: 81 mg Dicyclomine HCl (Bentyl) 10 mg PO BID [facility] Last Admin: 06/27/17 17:25 Dose: 10 mg Epoetin Woody (Procrit) 10,000 unit SC TTS [facility] Last Admin: 06/26/17 10:44 Dose: 10,000 unit Furosemide (Lasix) 20 mg PO BID [facility] Last Admin: 06/27/17 10:22 Dose: 20 mg Metronidazole (Flagyl) 500 mg in 100 mls @ 100 mls/hr IVPB Q8 [facility] Last Admin: 06/27/17 14:10 Dose: 100 mls/hr Fluconazole (Diflucan Iv 200 Mg/100 Ml Ns) 100 mls @ 100 mls/hr IVPB DAILY [facility] Last Admin: 06/27/17 10:28 Dose: 100 mls/hr Cefepime HCl (Maxipime Iv 1 Gm Premix) 1 gm in 50 mls @ 100 mls/hr IVPB Q12H [facility] Last Admin: 06/27/17 11:24 Dose: 100 mls/hr Losartan Potassium (Cozaar) 25 mg PO DAILY [facility] Last Admin: 06/23/17 10:03 Dose: Not Given Methimazole (Tapazole) 5 mg PO DAILY [facility] Last Admin: 06/27/17 10:21 Dose: 5 mg Methylprednisolone (Solu-Medrol) 40 mg IVP Q12 [facility] Last Admin: 06/27/17 10:35 Dose: 40 mg Metoprolol Succinate (Toprol Xl) 25 mg PO DAILY [facility] Last Admin: 06/24/17 11:19 Dose: 25 mg Multivitamins (Hexavitamin) 1 tab PO DAILY [facility] Last Admin: 06/27/17 10:22 Dose: 1 tab Vancomycin HCl (Vancocin (Oral Or Rectal Use)) 250 mg PO QID [facility] Last Admin: 06/27/17 17:24 Dose: 250 mg - Labs Labs: 06/27/17 06:30 06/27/17 06:30 PT 18.2 SECONDS (9.7-12.2) H 06/27/17 11:09 INR 1.6 06/27/17 11:09 APTT 34 SECONDS (21-34) 06/15/17 13:26 - Constitutional Appears: No Acute Distress - Eye Exam Eye Exam: Normal appearance Pupil Exam: Mydriatic - ENT Exam ENT Exam: Mucous Membranes Moist - Neck Exam Neck Exam: Full ROM. absent: Lymphadenopathy - Respiratory Exam Respiratory Exam: absent: Decreased Breath Sounds, Rales, Rhonchi, Wheezes - Cardiovascular Exam Cardiovascular Exam: REGULAR RHYTHM, +S1, +S2, Murmur. absent: Gallop, JVD - GI/Abdominal Exam GI & Abdominal Exam: Soft. absent: Tenderness, Mass - Extremities Exam Extremities Exam: Full ROM, Normal Capillary Refill. absent: Calf Tenderness, Joint Swelling Assessment and Plan - Assessment and Plan (Free Text) Assessment: Sepsis ? etio C diff colitis- improving, HTN, CAD, Hyperthyroidism, Myelodysplasia Cont care/ supprotive care spoke w/ daughter in length
--- NOTE | 2017-06-27 22:36 | PCM.SEPTIC ---
<RobeRadharhianna Buenrostro - Last Filed: 06/27/17 22:33> Sepsis Progress Note - Reassessment Type Date of Evaluation: 06/27/17 Time of Evaluation: 10:47 Reassessment Type: Non-invasive reassessment - Non Invasive Reassessment Were the most recent vital sign reviewed: Yes Vital Sign (Latest): Temp Pulse Resp BP Pulse Ox 97.8 F 93 H 20 102/65 99 06/27/17 16:07 06/27/17 18:47 06/27/17 16:07 06/27/17 16:07 06/27/17 16:07 Cardiovascular: Yes: Regular Rate, Rhythm. No: Bradycardia, Tachycardia Respiratory: No: Crackles, Rales Capillary Refill: Normal (Less than 2 sec) Pulses: Normal Radial, Normal Dorsalis Pedis Skin: Normal Color Was a passive leg raise performed or was a fluid challenge performed within 6 hrs of the initial fluid bolus: Yes Passive Leg Raise Result: Not Applicable Fluid Challenge performed: Yes Assessment & Plan - Assessment and Plan (Free Text) Assessment: Code sepsis Plan: Blood culture Chest X-ray fluid challenge echo <Kelvin Villanueva - Last Filed: 06/28/17 16:05> Sepsis Progress Note - Non Invasive Reassessment Vital Sign (Latest): Temp Pulse Resp BP Pulse Ox 97.5 F L 83 20 107/75 100 06/28/17 00:00 06/28/17 07:52 06/28/17 00:00 06/28/17 00:00 06/28/17 00:00 Attending/Attestation - Attestation I have personally seen and examined this patient.: Yes I have fully participated in the care of the patient.: Yes I have reviewed all pertinent clinical information, including history, physical exam and plan: Yes Notes (Text): Code sepsis called because of high lactic acid level Patient is on antibiotics as per OD follow cultures,acho d/w code sepsis team and the resident patient was justina and examined follow orders
[2017-06-28] MEDS: Cefepime IV 1 gm in Dextrose 1 GM/50 ML BAG IVPB SCH ×3 (00:42→23:54)
[2017-06-28] MEDS: metroNIDAZOLE IV 500 mg/100 ml 500 MG/100 ML BAG IVPB SCH ×3 (05:44→21:36)
[2017-06-28 08:50] LABS: HEMOGLOBIN 7.6 g/dL (11.0-16.0); MEAN CELL VOLUME 86.4 fL (81.0-99.0); MEAN CORPUSCULAR HEMOGLOBIN 28.9 pg (27.0-31.0); MEAN CORPUSCULAR HGB CONC 33.4 g/dL (33.0-37.0); MEAN PLATELET VOLUME 10.8 fL (7.2-11.7); PLATELET COUNT 385 K/uL (130-400); RBC 2.63 Mil/uL (3.80-5.20); RED CELL DISTRIBUTION WIDTH 16.4 % (11.5-14.5); WHITE BLOOD COUNT 4.5 K/uL (4.8-10.8)
[2017-06-28 08:51] LABS: ALB/GLOB RATIO 0.7 (1.0-2.1); ALBUMIN 2.1 g/dL (3.5-5.0); ALT/SGPT 23 U/L (9-52); AST/SGOT 17 U/L (14-36); BLOOD UREA NITROGEN 13 mg/dL (7-17); CALCIUM 7.7 mg/dl (8.6-10.4); GFR AFRICAN-AMERICAN > 60; GFR NON-AFRICAN AMERICAN > 60
[2017-06-28] MEDS: Vancomycin 125 MG/5 ML SOLN (ORAL/RECTAL) PO SCH ×4 (09:48→21:35)
[2017-06-28] MEDS: Epoetin Alfa 10,000 unit/ml Dialysis SC SCH (09:49)
[2017-06-28] MEDS: Multiple Vitamins Tab PO SCH (09:49)
[2017-06-28] MEDS: methIMAzole 5 MG TAB PO SCH (09:49)
[2017-06-28] MEDS: Fluconazole IV 200mg/100 ml NS 100 ML IVPB SCH (09:49)
[2017-06-28] MEDS: MethylPREDNISolone 40 mg Vial IVP SCH (09:49)
[2017-06-28 11:33] LABS: BASO % 0.1 % (0.0-2.0); EOS % 0.5 % (0.0-4.0); LYMPH % 20.8 % (20.0-40.0); MONO % 1.5 % (0.0-10.0); NEUT % 77.1 % (50.0-75.0); NRBC % 0.7 % (0.0-2.0)
[2017-06-28 11:34] LABS: LYMPH # 0.9 K/uL (1.0-4.3); MONO # 0.1 K/uL (0.0-0.8); NEUT # 3.5 K/uL (1.8-7.0)
[2017-06-28 11:39] LABS: BANDS 9 % (0-2); BASOPHIL 1 % (0-2); LYMPHOCYTE 19 % (20-40); MONOCYTE 4 % (0-10); NEUTROPHIL 67 % (50-75); TOTAL CELLS COUNTED 100
[2017-06-28 11:40] LABS: ANISOCYTOSIS SLIGHT; MICROCYTOSIS SLIGHT; PLATELET ESTIMATE NORMAL (NORMAL); POIKILOCYTOSIS SLIGHT
[2017-06-28 11:41] LABS: HYPOCHROMIC SLIGHT; OVALOCYTES SLIGHT; POLYCHROMIC SLIGHT; SCHISTOCYTES SLIGHT; TARGET CELLS SLIGHT
[2017-06-28 11:43] LABS: BURR CELLS SLIGHT; LARGE PLATELETS PRESENT; TEARDROP CELLS SLIGHT
--- NOTE | 2017-06-28 11:46 | CP.PCM.PN ---
Subjective - Date & Time of Evaluation Date of Evaluation: 06/28/17 Time of Evaluation: 12:15 - Subjective Subjective: Patient was scheduled for EGD and colonoscopy, but procedures were postponed after code sepsis was called yesterday. She denies having nausea, vomiting, abdominal pain. Objective - Vital Signs/Intake and Output Vital Signs (last 24 hours): Temp Pulse Resp BP Pulse Ox 97.5 F L 83 20 107/75 100 06/28/17 00:00 06/28/17 07:52 06/28/17 00:00 06/28/17 00:00 06/28/17 00:00 Intake and Output: 06/28/17 06/28/17 06:59 18:59 Intake Total 400 Balance 400 - Medications Medications: Current Medications Acetaminophen (Tylenol 325mg Tab) 650 mg PO Q6 PRN PRN Reason: Pain, Mild (1-3) Last Admin: 06/28/17 05:59 Dose: 650 mg Apixaban (Eliquis) 5 mg PO BID [facility] Last Admin: 06/24/17 11:18 Dose: 5 mg Aspirin (Aspirin Chewable) 81 mg PO DAILY [facility] Last Admin: 06/24/17 11:18 Dose: 81 mg Dicyclomine HCl (Bentyl) 10 mg PO BID [facility] Last Admin: 06/28/17 10:02 Dose: Not Given Epoetin Woody (Procrit) 10,000 unit SC TTS [facility] Last Admin: 06/28/17 09:49 Dose: 10,000 unit Furosemide (Lasix) 20 mg PO BID [facility] Last Admin: 06/27/17 10:22 Dose: 20 mg Metronidazole (Flagyl) 500 mg in 100 mls @ 100 mls/hr IVPB Q8 [facility] Last Admin: 06/28/17 05:44 Dose: 100 mls/hr Fluconazole (Diflucan Iv 200 Mg/100 Ml Ns) 100 mls @ 100 mls/hr IVPB DAILY [facility] Last Admin: 06/28/17 09:49 Dose: 100 mls/hr Cefepime HCl (Maxipime Iv 1 Gm Premix) 1 gm in 50 mls @ 100 mls/hr IVPB Q12H [facility] Last Admin: 06/28/17 00:42 Dose: 100 mls/hr Losartan Potassium (Cozaar) 25 mg PO DAILY [facility] Last Admin: 06/28/17 10:02 Dose: Not Given Methimazole (Tapazole) 5 mg PO DAILY [facility] Last Admin: 06/28/17 09:49 Dose: 5 mg Methylprednisolone (Solu-Medrol) 40 mg IVP Q12 [facility] Last Admin: 06/28/17 09:49 Dose: 40 mg Metoprolol Succinate (Toprol Xl) 25 mg PO DAILY [facility] Last Admin: 06/24/17 11:19 Dose: 25 mg Multivitamins (Hexavitamin) 1 tab PO DAILY [facility] Last Admin: 06/28/17 09:49 Dose: 1 tab Vancomycin HCl (Vancocin (Oral Or Rectal Use)) 250 mg PO QID [facility] Last Admin: 06/28/17 09:48 Dose: 250 mg - Labs Labs: 06/28/17 08:13 06/28/17 08:13 PT 18.2 SECONDS (9.7-12.2) H 06/27/17 11:09 INR 1.6 06/27/17 11:09 APTT 34 SECONDS (21-34) 06/15/17 13:26 - Constitutional Appears: No Acute Distress - Head Exam Head Exam: ATRAUMATIC, NORMOCEPHALIC - Eye Exam Eye Exam: EOMI, PERRL - Neck Exam Neck Exam: absent: Lymphadenopathy, Thyromegaly - Respiratory Exam Respiratory Exam: NORMAL BREATHING PATTERN. absent: Rales, Rhonchi, Wheezes - Cardiovascular Exam Cardiovascular Exam: REGULAR RHYTHM, +S1, +S2. absent: Gallop, Rubs, Murmur - GI/Abdominal Exam GI & Abdominal Exam: Soft, Normal Bowel Sounds. absent: Tenderness, Mass, Organomegaly - Rectal Exam Rectal Exam: Deferred - Extremities Exam Extremities Exam: Pedal Edema. absent: Calf Tenderness Assessment and Plan (1) Fecal occult blood test positive Assessment & Plan: Patient should have EGD and colonscopy when stable. Awaiting results of echocardiogram, clearance from cardiology and pulmonology. Status: Acute
--- NOTE | 2017-06-28 11:54 | CP.PCM.PN ---
Subjective - Date & Time of Evaluation Date of Evaluation: 06/28/17 Time of Evaluation: 08:30 - Subjective Subjective: patient seen and examined Breathing better/less shortness of breath Off BiPAP Status post code sepsis On IV antibiotics Echocardiogram done Afebrile Objective - Vital Signs/Intake and Output Vital Signs (last 24 hours): Temp Pulse Resp BP Pulse Ox 97.5 F L 83 20 107/75 100 06/28/17 00:00 06/28/17 07:52 06/28/17 00:00 06/28/17 00:00 06/28/17 00:00 Intake and Output: 06/28/17 06/28/17 06:59 18:59 Intake Total 400 Balance 400 - Medications Medications: Current Medications Acetaminophen (Tylenol 325mg Tab) 650 mg PO Q6 PRN PRN Reason: Pain, Mild (1-3) Last Admin: 06/28/17 05:59 Dose: 650 mg Apixaban (Eliquis) 5 mg PO BID [facility] Last Admin: 06/24/17 11:18 Dose: 5 mg Aspirin (Aspirin Chewable) 81 mg PO DAILY [facility] Last Admin: 06/24/17 11:18 Dose: 81 mg Dicyclomine HCl (Bentyl) 10 mg PO BID [facility] Last Admin: 06/28/17 10:02 Dose: Not Given Epoetin Woody (Procrit) 10,000 unit SC TTS [facility] Last Admin: 06/28/17 09:49 Dose: 10,000 unit Furosemide (Lasix) 20 mg PO BID [facility] Last Admin: 06/27/17 10:22 Dose: 20 mg Metronidazole (Flagyl) 500 mg in 100 mls @ 100 mls/hr IVPB Q8 [facility] Last Admin: 06/28/17 05:44 Dose: 100 mls/hr Fluconazole (Diflucan Iv 200 Mg/100 Ml Ns) 100 mls @ 100 mls/hr IVPB DAILY [facility] Last Admin: 06/28/17 09:49 Dose: 100 mls/hr Cefepime HCl (Maxipime Iv 1 Gm Premix) 1 gm in 50 mls @ 100 mls/hr IVPB Q12H [facility] Last Admin: 06/28/17 00:42 Dose: 100 mls/hr Losartan Potassium (Cozaar) 25 mg PO DAILY [facility] Last Admin: 06/28/17 10:02 Dose: Not Given Methimazole (Tapazole) 5 mg PO DAILY [facility] Last Admin: 06/28/17 09:49 Dose: 5 mg Methylprednisolone (Solu-Medrol) 40 mg IVP Q12 [facility] Last Admin: 06/28/17 09:49 Dose: 40 mg Metoprolol Succinate (Toprol Xl) 25 mg PO DAILY [facility] Last Admin: 06/24/17 11:19 Dose: 25 mg Multivitamins (Hexavitamin) 1 tab PO DAILY [facility] Last Admin: 06/28/17 09:49 Dose: 1 tab Vancomycin HCl (Vancocin (Oral Or Rectal Use)) 250 mg PO QID [facility] Last Admin: 06/28/17 09:48 Dose: 250 mg - Labs Labs: 06/28/17 08:13 06/28/17 08:13 PT 18.2 SECONDS (9.7-12.2) H 06/27/17 11:09 INR 1.6 06/27/17 11:09 APTT 34 SECONDS (21-34) 06/15/17 13:26 Assessment and Plan (1) SOB (shortness of breath) Status: Acute (2) Myelodysplasia (myelodysplastic syndrome) Status: Acute
--- NOTE | 2017-06-28 15:07 | CP.PCM.PN ---
Subjective - Date & Time of Evaluation Date of Evaluation: 06/28/17 Time of Evaluation: 15:05 - Subjective Subjective: S: C/o weakness. No fever. Poor Appetite. Objective - Vital Signs/Intake and Output Vital Signs (last 24 hours): Temp Pulse Resp BP Pulse Ox 97.5 F L 83 20 107/75 100 06/28/17 00:00 06/28/17 07:52 06/28/17 00:00 06/28/17 00:00 06/28/17 00:00 Intake and Output: 06/28/17 06/28/17 06:59 18:59 Intake Total 400 Balance 400 - Medications Medications: Current Medications Acetaminophen (Tylenol 325mg Tab) 650 mg PO Q4 PRN PRN Reason: blood transfusion Apixaban (Eliquis) 5 mg PO BID [facility] Last Admin: 06/24/17 11:18 Dose: 5 mg Aspirin (Aspirin Chewable) 81 mg PO DAILY [facility] Last Admin: 06/24/17 11:18 Dose: 81 mg Dicyclomine HCl (Bentyl) 10 mg PO BID [facility] Last Admin: 06/28/17 10:02 Dose: Not Given Epoetin Woody (Procrit) 10,000 unit SC TTS [facility] Last Admin: 06/28/17 09:49 Dose: 10,000 unit Furosemide (Lasix) 20 mg PO BID [facility] Last Admin: 06/27/17 10:22 Dose: 20 mg Metronidazole (Flagyl) 500 mg in 100 mls @ 100 mls/hr IVPB Q8 [facility] Last Admin: 06/28/17 14:09 Dose: 100 mls/hr Fluconazole (Diflucan Iv 200 Mg/100 Ml Ns) 100 mls @ 100 mls/hr IVPB DAILY [facility] Last Admin: 06/28/17 09:49 Dose: 100 mls/hr Cefepime HCl (Maxipime Iv 1 Gm Premix) 1 gm in 50 mls @ 100 mls/hr IVPB Q12H [facility] Last Admin: 06/28/17 12:20 Dose: 100 mls/hr Losartan Potassium (Cozaar) 25 mg PO DAILY [facility] Last Admin: 06/28/17 10:02 Dose: Not Given Methimazole (Tapazole) 5 mg PO DAILY [facility] Last Admin: 06/28/17 09:49 Dose: 5 mg Methylprednisolone (Solu-Medrol) 40 mg IVP Q4 PRN PRN Reason: Other Metoprolol Succinate (Toprol Xl) 25 mg PO DAILY [facility] Last Admin: 06/24/17 11:19 Dose: 25 mg Multivitamins (Hexavitamin) 1 tab PO DAILY [facility] Last Admin: 06/28/17 09:49 Dose: 1 tab Vancomycin HCl (Vancocin (Oral Or Rectal Use)) 250 mg PO QID [facility] Last Admin: 06/28/17 14:09 Dose: 250 mg - Labs Labs: 06/28/17 08:13 06/28/17 08:13 PT 18.2 SECONDS (9.7-12.2) H 06/27/17 11:09 INR 1.6 06/27/17 11:09 APTT 34 SECONDS (21-34) 06/15/17 13:26 - Constitutional Appears: Chronically Ill - Head Exam Head Exam: NORMAL INSPECTION - Eye Exam Eye Exam: Normal appearance - ENT Exam ENT Exam: Mucous Membranes Moist - Neck Exam Neck Exam: Normal Inspection - Respiratory Exam Respiratory Exam: Decreased Breath Sounds - Cardiovascular Exam Cardiovascular Exam: REGULAR RHYTHM - GI/Abdominal Exam GI & Abdominal Exam: Soft - Rectal Exam Rectal Exam: Deferred - Extremities Exam Extremities Exam: Pedal Edema - Neurological Exam Neurological Exam: Awake Assessment and Plan (1) CHF (congestive heart failure) Status: Acute (2) Rapid atrial fibrillation Status: Acute (3) Myelodysplasia (myelodysplastic syndrome) Status: Chronic (4) Pulmonary embolism on long-term anticoagulation therapy Status: Acute (5) Pulmonary embolism Status: Chronic (6) Fever Status: Acute (7) Sepsis Status: Acute - Assessment and Plan (Free Text) Assessment: A/p: Continue medications. Continue antibiotic
--- NOTE | 2017-06-28 16:28 | CP.PCM.PN ---
Subjective - Date & Time of Evaluation Date of Evaluation: 06/27/17 Time of Evaluation: 07:00 - Subjective Subjective: Pt sob; no chest pain GI contemplating of upper and lower endoscopy May need to cancel due to pulmonary status Case discussed w/ Dr Ruiz Objective - Vital Signs/Intake and Output Vital Signs (last 24 hours): Temp Pulse Resp BP Pulse Ox 97.5 F L 83 20 107/75 100 06/28/17 00:00 06/28/17 07:52 06/28/17 00:00 06/28/17 00:00 06/28/17 00:00 Intake and Output: 06/28/17 06/28/17 06:59 18:59 Intake Total 400 470 Balance 400 470 - Medications Medications: Current Medications Acetaminophen (Tylenol 325mg Tab) 650 mg PO Q4 PRN PRN Reason: blood transfusion Apixaban (Eliquis) 5 mg PO BID [facility] Last Admin: 06/24/17 11:18 Dose: 5 mg Aspirin (Aspirin Chewable) 81 mg PO DAILY [facility] Last Admin: 06/24/17 11:18 Dose: 81 mg Dicyclomine HCl (Bentyl) 10 mg PO BID [facility] Last Admin: 06/28/17 10:02 Dose: Not Given Epoetin Woody (Procrit) 10,000 unit SC TTS [facility] Last Admin: 06/28/17 09:49 Dose: 10,000 unit Furosemide (Lasix) 20 mg PO BID [facility] Last Admin: 06/27/17 10:22 Dose: 20 mg Furosemide (Lasix) 20 mg IVP ONCE PRN PRN Reason: before transfusion Metronidazole (Flagyl) 500 mg in 100 mls @ 100 mls/hr IVPB Q8 [facility] Last Admin: 06/28/17 14:09 Dose: 100 mls/hr Fluconazole (Diflucan Iv 200 Mg/100 Ml Ns) 100 mls @ 100 mls/hr IVPB DAILY [facility] Last Admin: 06/28/17 09:49 Dose: 100 mls/hr Cefepime HCl (Maxipime Iv 1 Gm Premix) 1 gm in 50 mls @ 100 mls/hr IVPB Q12H [facility] Last Admin: 06/28/17 12:20 Dose: 100 mls/hr Losartan Potassium (Cozaar) 25 mg PO DAILY [facility] Last Admin: 06/28/17 10:02 Dose: Not Given Methimazole (Tapazole) 5 mg PO DAILY [facility] Last Admin: 06/28/17 09:49 Dose: 5 mg Methylprednisolone (Solu-Medrol) 40 mg IVP Q4 PRN PRN Reason: Other Metoprolol Succinate (Toprol Xl) 25 mg PO DAILY [facility] Last Admin: 06/24/17 11:19 Dose: 25 mg Multivitamins (Hexavitamin) 1 tab PO DAILY [facility] Last Admin: 06/28/17 09:49 Dose: 1 tab Vancomycin HCl (Vancocin (Oral Or Rectal Use)) 250 mg PO QID [facility] Last Admin: 06/28/17 14:09 Dose: 250 mg - Labs Labs: 06/28/17 08:13 06/28/17 08:13 PT 18.2 SECONDS (9.7-12.2) H 06/27/17 11:09 INR 1.6 06/27/17 11:09 APTT 34 SECONDS (21-34) 06/15/17 13:26 - Constitutional Appears: Chronically Ill - Head Exam Head Exam: NORMAL INSPECTION - Eye Exam Eye Exam: absent: Scleral icterus - Neck Exam Neck Exam: Full ROM - Respiratory Exam Respiratory Exam: Decreased Breath Sounds - Cardiovascular Exam Cardiovascular Exam: REGULAR RHYTHM - GI/Abdominal Exam GI & Abdominal Exam: Soft - Extremities Exam Extremities Exam: Pedal Edema - Neurological Exam Neurological Exam: Alert Assessment and Plan - Assessment and Plan (Free Text) Assessment: Pneumonia COPD CHF? CAD Afib MDS w/ severe recurrent anemia Plan: Cont meds Abtx as per Dr Hernandez We're gonna postponed endoscopy until cardiopulmonary is stable Daughter Afua being updated constantly of patient's status Heme follow up w/ Dr Meyer POOR PROGNOSIS
--- NOTE | 2017-06-28 18:07 | CP.PCM.PN ---
Subjective - Date & Time of Evaluation Date of Evaluation: 06/28/17 Time of Evaluation: 18:06 - Subjective Subjective: pt is seen and examined, follow up consult is dictated #[id number] Objective - Vital Signs/Intake and Output Vital Signs (last 24 hours): Temp Pulse Resp BP Pulse Ox 97.3 F L 77 20 112/76 100 06/28/17 16:48 06/28/17 16:48 06/28/17 16:48 06/28/17 16:48 06/28/17 16:48 Intake and Output: 06/28/17 06/28/17 06:59 18:59 Intake Total 400 470 Balance 400 470 - Medications Medications: Current Medications Acetaminophen (Tylenol 325mg Tab) 650 mg PO Q4 PRN PRN Reason: blood transfusion Apixaban (Eliquis) 5 mg PO BID [facility] Last Admin: 06/24/17 11:18 Dose: 5 mg Aspirin (Aspirin Chewable) 81 mg PO DAILY [facility] Last Admin: 06/24/17 11:18 Dose: 81 mg Dicyclomine HCl (Bentyl) 10 mg PO BID [facility] Last Admin: 06/28/17 18:03 Dose: 10 mg Epoetin Woody (Procrit) 10,000 unit SC TTS [facility] Last Admin: 06/28/17 09:49 Dose: 10,000 unit Furosemide (Lasix) 20 mg PO BID [facility] Last Admin: 06/27/17 10:22 Dose: 20 mg Furosemide (Lasix) 20 mg IVP ONCE PRN PRN Reason: before transfusion Metronidazole (Flagyl) 500 mg in 100 mls @ 100 mls/hr IVPB Q8 [facility] Last Admin: 06/28/17 14:09 Dose: 100 mls/hr Fluconazole (Diflucan Iv 200 Mg/100 Ml Ns) 100 mls @ 100 mls/hr IVPB DAILY [facility] Last Admin: 06/28/17 09:49 Dose: 100 mls/hr Cefepime HCl (Maxipime Iv 1 Gm Premix) 1 gm in 50 mls @ 100 mls/hr IVPB Q12H [facility] Last Admin: 06/28/17 12:20 Dose: 100 mls/hr Losartan Potassium (Cozaar) 25 mg PO DAILY [facility] Last Admin: 06/28/17 10:02 Dose: Not Given Methimazole (Tapazole) 5 mg PO DAILY [facility] Last Admin: 06/28/17 09:49 Dose: 5 mg Methylprednisolone (Solu-Medrol) 40 mg IVP Q4 PRN PRN Reason: Other Metoprolol Succinate (Toprol Xl) 25 mg PO DAILY [facility] Last Admin: 06/24/17 11:19 Dose: 25 mg Multivitamins (Hexavitamin) 1 tab PO DAILY [facility] Last Admin: 06/28/17 09:49 Dose: 1 tab Vancomycin HCl (Vancocin (Oral Or Rectal Use)) 250 mg PO QID [facility] Last Admin: 06/28/17 18:03 Dose: 250 mg - Labs Labs: 06/28/17 08:13 06/28/17 08:13 PT 18.2 SECONDS (9.7-12.2) H 06/27/17 11:09 INR 1.6 06/27/17 11:09 APTT 34 SECONDS (21-34) 06/15/17 13:26
--- NOTE | 2017-06-29 00:51 | CP.PCM.PN ---
Subjective - Date & Time of Evaluation Date of Evaluation: 06/28/17 Time of Evaluation: 13:20 - Subjective Subjective: Patient seen and evaluated feels better No dyspnea or chest pain Objective - Vital Signs/Intake and Output Vital Signs (last 24 hours): Temp Pulse Resp BP Pulse Ox 97.6 F 87 18 107/71 92 L 06/28/17 22:00 06/28/17 18:49 06/28/17 22:00 06/28/17 22:00 06/28/17 22:00 Intake and Output: 06/28/17 06/29/17 18:59 06:59 Intake Total 530 130 Balance 530 130 - Medications Medications: Current Medications Acetaminophen (Tylenol 325mg Tab) 650 mg PO Q4 PRN PRN Reason: blood transfusion Apixaban (Eliquis) 5 mg PO BID [facility] Last Admin: 06/24/17 11:18 Dose: 5 mg Aspirin (Aspirin Chewable) 81 mg PO DAILY [facility] Last Admin: 06/24/17 11:18 Dose: 81 mg Dicyclomine HCl (Bentyl) 10 mg PO BID [facility] Last Admin: 06/28/17 18:03 Dose: 10 mg Epoetin Woody (Procrit) 10,000 unit SC TTS [facility] Last Admin: 06/28/17 09:49 Dose: 10,000 unit Furosemide (Lasix) 20 mg PO BID [facility] Last Admin: 06/27/17 10:22 Dose: 20 mg Furosemide (Lasix) 20 mg IVP ONCE PRN PRN Reason: before transfusion Metronidazole (Flagyl) 500 mg in 100 mls @ 100 mls/hr IVPB Q8 [facility] Last Admin: 06/28/17 21:36 Dose: 100 mls/hr Fluconazole (Diflucan Iv 200 Mg/100 Ml Ns) 100 mls @ 100 mls/hr IVPB DAILY [facility] Last Admin: 06/28/17 09:49 Dose: 100 mls/hr Cefepime HCl (Maxipime Iv 1 Gm Premix) 1 gm in 50 mls @ 100 mls/hr IVPB Q12H [facility] Last Admin: 06/28/17 23:54 Dose: 100 mls/hr Losartan Potassium (Cozaar) 25 mg PO DAILY [facility] Last Admin: 06/28/17 10:02 Dose: Not Given Methimazole (Tapazole) 5 mg PO DAILY [facility] Last Admin: 06/28/17 09:49 Dose: 5 mg Methylprednisolone (Solu-Medrol) 40 mg IVP Q4 PRN PRN Reason: Other Metoprolol Succinate (Toprol Xl) 25 mg PO DAILY [facility] Last Admin: 06/24/17 11:19 Dose: 25 mg Multivitamins (Hexavitamin) 1 tab PO DAILY [facility] Last Admin: 06/28/17 09:49 Dose: 1 tab Vancomycin HCl (Vancocin (Oral Or Rectal Use)) 250 mg PO QID [facility] Last Admin: 06/28/17 21:35 Dose: 250 mg - Labs Labs: 06/28/17 08:13 06/28/17 08:13 PT 18.2 SECONDS (9.7-12.2) H 06/27/17 11:09 INR 1.6 06/27/17 11:09 APTT 34 SECONDS (21-34) 06/15/17 13:26
[2017-06-29] MEDS: MethylPREDNISolone 40 mg Vial IVP PRN (01:26)
[2017-06-29] MEDS: metroNIDAZOLE IV 500 mg/100 ml 500 MG/100 ML BAG IVPB SCH ×3 (05:33→21:53)
[2017-06-29] MEDS: Vancomycin 125 MG/5 ML SOLN (ORAL/RECTAL) PO SCH ×4 (09:47→22:11)
[2017-06-29] MEDS: Fluconazole IV 200mg/100 ml NS 100 ML IVPB SCH (09:48)
[2017-06-29] MEDS: Multiple Vitamins Tab PO SCH (09:48)
[2017-06-29] MEDS: methIMAzole 5 MG TAB PO SCH (09:48)
--- NOTE | 2017-06-29 10:09 | CARD ---
APPROVED REPORT EXAM: Two-dimensional and M-mode echocardiogram with Doppler and color Doppler. Other Information Quality : GoodRhythm : INDICATION Dyspnea CAD Congestive Heart Failure FEVER, R/O ENDOCARDITIS M-Mode DIMENSIONS RVDd1.22 (2.1-3.2cm)Left Atrium (MM)4.61 (2.5-4.0cm) IVSd1.03 (0.7-1.1cm)Aortic Root3.28 (2.2-3.7cm) LVDd5.68 (4.0-5.6cm)Aortic Cusp Exc.1.64 (1.5-2.0cm) PWd1.00 (0.7-1.1cm)FS (%) 28 % LVDs4.09 (2.0-3.8cm)LVEF (%)53 (>50%) Mitral Valve MV E Ysokwypk86.6cm/sMV A Pfixtidj67.7cm/sE/A ratio2.3 TDI E/Lateral E'0.0E/Medial E'0.0 Tricuspid Valve TR Peak [id number]/sTR Peak Gr.[id number] LEFT VENTRICLE The left ventricle is normal size. There is normal left ventricular wall thickness. Left ventricle systolic function is normal. The Ejection Fraction is 60-65%. There is normal LV segmental wall motion. The left ventricular diastolic function is normal. There is no ventricular septal defect visualized. RIGHT VENTRICLE The right ventricle is normal size. The right ventricular systolic function is normal. ATRIA The left atrium is borderline dilated. The right atrium size is normal. AORTIC VALVE The aortic valve is mildly sclerotic. The aortic valve is tri-cuspid. No aortic regurgitation is present. There is no aortic valvular stenosis. SUHAIL is more specific to r/o vegetation MITRAL VALVE The mitral valve is normal in structure. There is no evidence of mitral valve prolapse. Mitral regurgitation is trace. TRICUSPID VALVE The tricuspid valve is normal in structure. There is trace tricuspid regurgitation. There is no pulmonary hypertension. PULMONIC VALVE The pulmonary valve is normal in structure. There is trace pulmonic valvular regurgitation. GREAT VESSELS The aortic root is normal in size. The IVC is normal in size and collapses >50% with inspiration. PERICARDIAL EFFUSION There is no pericardial effusion. <Conclusion> Left ventricle systolic function is normal. The Ejection Fraction is 60-65%. The left ventricular diastolic function is normal. Mitral regurgitation is trace. SUHAIL is more specific to r/o vegetation
--- NOTE | 2017-06-29 11:05 | CP.PCM.PN ---
Subjective - Date & Time of Evaluation Date of Evaluation: 06/29/17 Time of Evaluation: 11:03 - Subjective Subjective: Bedridden. S/p blood transfusion Objective - Vital Signs/Intake and Output Vital Signs (last 24 hours): Temp Pulse Resp BP Pulse Ox 97.4 F L 70 20 120/72 100 06/29/17 07:10 06/29/17 07:10 06/29/17 07:10 06/29/17 09:48 06/29/17 07:10 Intake and Output: 06/29/17 06/29/17 06:59 18:59 Intake Total 455 Balance 455 - Medications Medications: Current Medications Acetaminophen (Tylenol 325mg Tab) 650 mg PO Q4 PRN PRN Reason: blood transfusion Apixaban (Eliquis) 5 mg PO BID [facility] Last Admin: 06/24/17 11:18 Dose: 5 mg Aspirin (Aspirin Chewable) 81 mg PO DAILY [facility] Last Admin: 06/24/17 11:18 Dose: 81 mg Dicyclomine HCl (Bentyl) 10 mg PO BID [facility] Last Admin: 06/29/17 09:48 Dose: 10 mg Epoetin Woody (Procrit) 10,000 unit SC TTS [facility] Last Admin: 06/28/17 09:49 Dose: 10,000 unit Furosemide (Lasix) 20 mg PO BID [facility] Last Admin: 06/29/17 09:48 Dose: 20 mg Furosemide (Lasix) 20 mg IVP ONCE PRN PRN Reason: before transfusion Last Admin: 06/29/17 01:27 Dose: 20 mg Metronidazole (Flagyl) 500 mg in 100 mls @ 100 mls/hr IVPB Q8 [facility] Last Admin: 06/29/17 05:33 Dose: 100 mls/hr Fluconazole (Diflucan Iv 200 Mg/100 Ml Ns) 100 mls @ 100 mls/hr IVPB DAILY [facility] Last Admin: 06/29/17 09:48 Dose: 100 mls/hr Cefepime HCl (Maxipime Iv 1 Gm Premix) 1 gm in 50 mls @ 100 mls/hr IVPB Q12H [facility] Last Admin: 06/28/17 23:54 Dose: 100 mls/hr Losartan Potassium (Cozaar) 25 mg PO DAILY [facility] Last Admin: 06/28/17 10:02 Dose: Not Given Methimazole (Tapazole) 5 mg PO DAILY [facility] Last Admin: 06/29/17 09:48 Dose: 5 mg Methylprednisolone (Solu-Medrol) 40 mg IVP Q4 PRN PRN Reason: Other Last Admin: 06/29/17 01:26 Dose: 40 mg Metoprolol Succinate (Toprol Xl) 25 mg PO DAILY [facility] Last Admin: 06/24/17 11:19 Dose: 25 mg Multivitamins (Hexavitamin) 1 tab PO DAILY [facility] Last Admin: 06/29/17 09:48 Dose: 1 tab Vancomycin HCl (Vancocin (Oral Or Rectal Use)) 250 mg PO QID [facility] Last Admin: 06/29/17 09:47 Dose: 250 mg - Labs Labs: 06/28/17 08:13 06/28/17 08:13 PT 18.2 SECONDS (9.7-12.2) H 06/27/17 11:09 INR 1.6 06/27/17 11:09 APTT 34 SECONDS (21-34) 06/15/17 13:26 - Constitutional Appears: Chronically Ill - Head Exam Head Exam: NORMAL INSPECTION - ENT Exam ENT Exam: Mucous Membranes Dry - Neck Exam Neck Exam: Normal Inspection - Respiratory Exam Respiratory Exam: Decreased Breath Sounds - Cardiovascular Exam Cardiovascular Exam: REGULAR RHYTHM - GI/Abdominal Exam GI & Abdominal Exam: Soft - Rectal Exam Rectal Exam: Deferred - Extremities Exam Extremities Exam: Pedal Edema - Neurological Exam Neurological Exam: Awake Assessment and Plan (1) CHF (congestive heart failure) Status: Acute (2) Rapid atrial fibrillation Status: Acute (3) Myelodysplasia (myelodysplastic syndrome) Status: Chronic (4) Pulmonary embolism on long-term anticoagulation therapy Status: Acute (5) Pulmonary embolism Status: Chronic (6) Fever Status: Acute (7) Sepsis Status: Acute - Assessment and Plan (Free Text) Assessment: A/P: Continue medications. Repeat CBC, CMP.
[2017-06-29] MEDS: Cefepime IV 1 gm in Dextrose 1 GM/50 ML BAG IVPB SCH (11:09)
[2017-06-29 11:46] LABS: MEAN CELL VOLUME 86.1 fL (81.0-99.0); MEAN CORPUSCULAR HEMOGLOBIN 28.9 pg (27.0-31.0); MEAN CORPUSCULAR HGB CONC 33.5 g/dL (33.0-37.0); MEAN PLATELET VOLUME 11.4 fL (7.2-11.7); PLATELET COUNT 393 K/uL (130-400); RBC 3.12 Mil/uL (3.80-5.20); RED CELL DISTRIBUTION WIDTH 15.8 % (11.5-14.5); WHITE BLOOD COUNT 5.5 K/uL (4.8-10.8)
--- NOTE | 2017-06-29 11:53 | CP.PCM.PN ---
Subjective - Date & Time of Evaluation Date of Evaluation: 06/29/17 Time of Evaluation: 11:51 - Subjective Subjective: Patient denies having nausea, vomiting, abdominal pain. Objective - Vital Signs/Intake and Output Vital Signs (last 24 hours): Temp Pulse Resp BP Pulse Ox 97.4 F L 70 20 120/72 100 06/29/17 07:10 06/29/17 07:10 06/29/17 07:10 06/29/17 09:48 06/29/17 07:10 Intake and Output: 06/29/17 06/29/17 06:59 18:59 Intake Total 455 Balance 455 - Medications Medications: Current Medications Acetaminophen (Tylenol 325mg Tab) 650 mg PO Q4 PRN PRN Reason: blood transfusion Apixaban (Eliquis) 5 mg PO BID [facility] Last Admin: 06/24/17 11:18 Dose: 5 mg Aspirin (Aspirin Chewable) 81 mg PO DAILY [facility] Last Admin: 06/24/17 11:18 Dose: 81 mg Dicyclomine HCl (Bentyl) 10 mg PO BID [facility] Last Admin: 06/29/17 09:48 Dose: 10 mg Epoetin Woody (Procrit) 10,000 unit SC TTS [facility] Last Admin: 06/28/17 09:49 Dose: 10,000 unit Furosemide (Lasix) 20 mg PO BID [facility] Last Admin: 06/29/17 09:48 Dose: 20 mg Furosemide (Lasix) 20 mg IVP ONCE PRN PRN Reason: before transfusion Last Admin: 06/29/17 01:27 Dose: 20 mg Metronidazole (Flagyl) 500 mg in 100 mls @ 100 mls/hr IVPB Q8 [facility] Last Admin: 06/29/17 05:33 Dose: 100 mls/hr Fluconazole (Diflucan Iv 200 Mg/100 Ml Ns) 100 mls @ 100 mls/hr IVPB DAILY [facility] Last Admin: 06/29/17 09:48 Dose: 100 mls/hr Cefepime HCl (Maxipime Iv 1 Gm Premix) 1 gm in 50 mls @ 100 mls/hr IVPB Q12H [facility] Last Admin: 06/29/17 11:09 Dose: 100 mls/hr Losartan Potassium (Cozaar) 25 mg PO DAILY [facility] Last Admin: 06/28/17 10:02 Dose: Not Given Methimazole (Tapazole) 5 mg PO DAILY [facility] Last Admin: 06/29/17 09:48 Dose: 5 mg Methylprednisolone (Solu-Medrol) 40 mg IVP Q4 PRN PRN Reason: Other Last Admin: 06/29/17 01:26 Dose: 40 mg Metoprolol Succinate (Toprol Xl) 25 mg PO DAILY [facility] Last Admin: 06/24/17 11:19 Dose: 25 mg Multivitamins (Hexavitamin) 1 tab PO DAILY [facility] Last Admin: 06/29/17 09:48 Dose: 1 tab Vancomycin HCl (Vancocin (Oral Or Rectal Use)) 250 mg PO QID [facility] Last Admin: 06/29/17 09:47 Dose: 250 mg - Labs Labs: 06/29/17 11:28 06/28/17 08:13 PT 18.2 SECONDS (9.7-12.2) H 06/27/17 11:09 INR 1.6 06/27/17 11:09 APTT 34 SECONDS (21-34) 06/15/17 13:26 - Constitutional Appears: No Acute Distress - Head Exam Head Exam: ATRAUMATIC, NORMOCEPHALIC - Eye Exam Eye Exam: EOMI, PERRL - Neck Exam Neck Exam: absent: Lymphadenopathy, Thyromegaly - Respiratory Exam Respiratory Exam: Rales, NORMAL BREATHING PATTERN. absent: Wheezes Additional comments: Rales at right lung base 1/3 up - Cardiovascular Exam Cardiovascular Exam: REGULAR RHYTHM, +S1, +S2. absent: Gallop, Rubs, Murmur - GI/Abdominal Exam GI & Abdominal Exam: Soft, Normal Bowel Sounds. absent: Tenderness, Mass, Organomegaly - Rectal Exam Rectal Exam: Deferred - Extremities Exam Extremities Exam: Pedal Edema Assessment and Plan (1) Fecal occult blood test positive Assessment & Plan: Most recent hemoglobin is 7.6. Patient has a history of MDS. Awaiting clearance for GI procedures. Status: Acute
[2017-06-29 12:27] LABS: ALB/GLOB RATIO 0.7 (1.0-2.1); ALBUMIN 2.2 g/dL (3.5-5.0); ALT/SGPT 27 U/L (9-52); AST/SGOT 14 U/L (14-36); BLOOD UREA NITROGEN 18 mg/dL (7-17); CALCIUM 7.9 mg/dl (8.6-10.4); GFR AFRICAN-AMERICAN > 60; GFR NON-AFRICAN AMERICAN > 60
[2017-06-29 13:44] LABS: BANDS 7 % (0-2); LYMPHOCYTE 12 % (20-40); MONOCYTE 5 % (0-10); NEUTROPHIL 76 % (50-75); TOTAL CELLS COUNTED 100
[2017-06-29 13:45] LABS: ANISOCYTOSIS SLIGHT; PLATELET ESTIMATE NORMAL (NORMAL); POIKILOCYTOSIS SLIGHT
[2017-06-29 13:46] LABS: BURR CELLS SLIGHT; HYPOCHROMIC SLIGHT; MICROCYTOSIS SLIGHT; OVALOCYTES SLIGHT; POLYCHROMIC SLIGHT; SCHISTOCYTES SLIGHT; TEARDROP CELLS SLIGHT
[2017-06-29 13:47] LABS: ACANTHOCYTES SLIGHT; HOWELL JOLLY BODIES SLIGHT
[2017-06-29 13:48] LABS: NEUT % 76.1 % (50.0-75.0)
[2017-06-29 13:49] LABS: BASO % 0.1 % (0.0-2.0); EOS % 0.4 % (0.0-4.0); LYMPH % 19.1 % (20.0-40.0); MONO # 0.2 K/uL (0.0-0.8); MONO % 4.3 % (0.0-10.0); NEUT # 4.2 K/uL (1.8-7.0); NRBC % 0.2 % (0.0-2.0)
[2017-06-29] MEDS ORDERED: Tolvaptan 15 MG TAB PO ONE (15:14)
--- NOTE | 2017-06-29 15:14 | CP.PCM.PN ---
Subjective - Date & Time of Evaluation Date of Evaluation: 06/29/17 Time of Evaluation: 15:14 - Subjective Subjective: pt is seen and examined, follow up consult is dictated [id number]# will add tolvaptan 15 mg po x1 Objective - Vital Signs/Intake and Output Vital Signs (last 24 hours): Temp Pulse Resp BP Pulse Ox 97.4 F L 91 H 20 120/72 100 06/29/17 07:10 06/29/17 09:49 06/29/17 07:10 06/29/17 09:49 06/29/17 07:10 Intake and Output: 06/29/17 06/29/17 06:59 18:59 Intake Total 455 Balance 455 - Medications Medications: Current Medications Acetaminophen (Tylenol 325mg Tab) 650 mg PO Q4 PRN PRN Reason: blood transfusion Apixaban (Eliquis) 5 mg PO BID [facility] Last Admin: 06/24/17 11:18 Dose: 5 mg Aspirin (Aspirin Chewable) 81 mg PO DAILY [facility] Last Admin: 06/24/17 11:18 Dose: 81 mg Dicyclomine HCl (Bentyl) 10 mg PO BID [facility] Last Admin: 06/29/17 09:48 Dose: 10 mg Epoetin Woody (Procrit) 10,000 unit SC TTS [facility] Last Admin: 06/28/17 09:49 Dose: 10,000 unit Furosemide (Lasix) 20 mg PO BID [facility] Last Admin: 06/29/17 09:48 Dose: 20 mg Furosemide (Lasix) 20 mg IVP ONCE PRN PRN Reason: before transfusion Last Admin: 06/29/17 01:27 Dose: 20 mg Metronidazole (Flagyl) 500 mg in 100 mls @ 100 mls/hr IVPB Q8 [facility] Last Admin: 06/29/17 13:45 Dose: 100 mls/hr Fluconazole (Diflucan Iv 200 Mg/100 Ml Ns) 100 mls @ 100 mls/hr IVPB DAILY [facility] Last Admin: 06/29/17 09:48 Dose: 100 mls/hr Cefepime HCl (Maxipime Iv 1 Gm Premix) 1 gm in 50 mls @ 100 mls/hr IVPB Q12H [facility] Last Admin: 06/29/17 11:09 Dose: 100 mls/hr Losartan Potassium (Cozaar) 25 mg PO DAILY [facility] Last Admin: 06/28/17 10:02 Dose: Not Given Methimazole (Tapazole) 5 mg PO DAILY [facility] Last Admin: 06/29/17 09:48 Dose: 5 mg Methylprednisolone (Solu-Medrol) 40 mg IVP Q4 PRN PRN Reason: Other Last Admin: 06/29/17 01:26 Dose: 40 mg Metoprolol Succinate (Toprol Xl) 25 mg PO DAILY [facility] Last Admin: 06/24/17 11:19 Dose: 25 mg Multivitamins (Hexavitamin) 1 tab PO DAILY [facility] Last Admin: 06/29/17 09:48 Dose: 1 tab Vancomycin HCl (Vancocin (Oral Or Rectal Use)) 250 mg PO QID [facility] Last Admin: 06/29/17 13:45 Dose: 250 mg - Labs Labs: 06/29/17 11:28 06/29/17 11:28 PT 18.2 SECONDS (9.7-12.2) H 06/27/17 11:09 INR 1.6 06/27/17 11:09 APTT 34 SECONDS (21-34) 06/15/17 13:26
--- NOTE | 2017-06-29 16:09 | CP.PCM.PN ---
Subjective - Date & Time of Evaluation Date of Evaluation: 06/29/17 Time of Evaluation: 07:00 - Subjective Subjective: bands decreaseing since cefepime added for lung infiltrates/ bandemia denies diarrhea has recurerent c diff severe MDS with recurrent infections / severe anemia and failure to thrive Objective - Vital Signs/Intake and Output Vital Signs (last 24 hours): Temp Pulse Resp BP Pulse Ox 97.4 F L 91 H 20 120/72 100 06/29/17 07:10 06/29/17 09:49 06/29/17 07:10 06/29/17 09:49 06/29/17 07:10 Intake and Output: 06/29/17 06/29/17 06:59 18:59 Intake Total 455 Balance 455 - Medications Medications: Current Medications Acetaminophen (Tylenol 325mg Tab) 650 mg PO Q4 PRN PRN Reason: blood transfusion Apixaban (Eliquis) 5 mg PO BID [facility] Last Admin: 06/24/17 11:18 Dose: 5 mg Aspirin (Aspirin Chewable) 81 mg PO DAILY [facility] Last Admin: 06/24/17 11:18 Dose: 81 mg Dicyclomine HCl (Bentyl) 10 mg PO BID [facility] Last Admin: 06/29/17 09:48 Dose: 10 mg Epoetin Woody (Procrit) 10,000 unit SC TTS [facility] Last Admin: 06/28/17 09:49 Dose: 10,000 unit Furosemide (Lasix) 20 mg PO BID [facility] Last Admin: 06/29/17 09:48 Dose: 20 mg Furosemide (Lasix) 20 mg IVP ONCE PRN PRN Reason: before transfusion Last Admin: 06/29/17 01:27 Dose: 20 mg Metronidazole (Flagyl) 500 mg in 100 mls @ 100 mls/hr IVPB Q8 [facility] Last Admin: 06/29/17 13:45 Dose: 100 mls/hr Fluconazole (Diflucan Iv 200 Mg/100 Ml Ns) 100 mls @ 100 mls/hr IVPB DAILY [facility] Last Admin: 06/29/17 09:48 Dose: 100 mls/hr Cefepime HCl (Maxipime Iv 1 Gm Premix) 1 gm in 50 mls @ 100 mls/hr IVPB Q12H [facility] Last Admin: 06/29/17 11:09 Dose: 100 mls/hr Losartan Potassium (Cozaar) 25 mg PO DAILY [facility] Last Admin: 06/28/17 10:02 Dose: Not Given Methimazole (Tapazole) 5 mg PO DAILY [facility] Last Admin: 06/29/17 09:48 Dose: 5 mg Methylprednisolone (Solu-Medrol) 40 mg IVP Q4 PRN PRN Reason: Other Last Admin: 06/29/17 01:26 Dose: 40 mg Metoprolol Succinate (Toprol Xl) 25 mg PO DAILY [facility] Last Admin: 06/24/17 11:19 Dose: 25 mg Multivitamins (Hexavitamin) 1 tab PO DAILY [facility] Last Admin: 06/29/17 09:48 Dose: 1 tab Vancomycin HCl (Vancocin (Oral Or Rectal Use)) 250 mg PO QID [facility] Last Admin: 06/29/17 13:45 Dose: 250 mg - Labs Labs: 06/29/17 11:28 06/29/17 11:28 PT 18.2 SECONDS (9.7-12.2) H 06/27/17 11:09 INR 1.6 06/27/17 11:09 APTT 34 SECONDS (21-34) 06/15/17 13:26 - Constitutional Appears: Cachectic, Chronically Ill - Head Exam Head Exam: NORMOCEPHALIC - Eye Exam Eye Exam: PERRL. absent: Scleral icterus - ENT Exam ENT Exam: Mucous Membranes Dry - Neck Exam Neck Exam: absent: Lymphadenopathy - Respiratory Exam Respiratory Exam: Decreased Breath Sounds - Cardiovascular Exam Cardiovascular Exam: REGULAR RHYTHM - GI/Abdominal Exam GI & Abdominal Exam: Distended, Soft - Rectal Exam Rectal Exam: Deferred - Exam Exam: NORMAL INSPECTION Assessment and Plan (1) CHF (congestive heart failure) Status: Acute (2) Rapid atrial fibrillation Status: Acute (3) CAD (coronary artery disease) Status: Acute (4) Cough Status: Acute (5) Dehydration Status: Acute (6) Hyponatremia Status: Acute (7) Lower respiratory infection Status: Acute (8) Myelodysplasia (myelodysplastic syndrome) Status: Acute - Assessment and Plan (Free Text) Assessment: to complete 7 days cefepime cont Vqanco po for 2 more weeks
--- NOTE | 2017-06-29 18:56 | CP.PCM.PN ---
Subjective - Date & Time of Evaluation Date of Evaluation: 06/29/17 Time of Evaluation: 15:25 - Subjective Subjective: The patient seen and examined sitting comfortably in no distress Complaining of bloating No diarrhea Off BiPAP Afebrile Being treated for pneumonia and C. difficile Followup chest x-ray Objective - Vital Signs/Intake and Output Vital Signs (last 24 hours): Temp Pulse Resp BP Pulse Ox 97.3 F L 82 20 128/68 100 06/29/17 16:41 06/29/17 16:41 06/29/17 16:41 06/29/17 18:02 06/29/17 16:41 Intake and Output: 06/29/17 06/29/17 06:59 18:59 Intake Total 455 560 Balance 455 560 - Medications Medications: Current Medications Acetaminophen (Tylenol 325mg Tab) 650 mg PO Q4 PRN PRN Reason: blood transfusion Apixaban (Eliquis) [address] [facility] Last Admin: 06/24/17 11:18 Dose: 5 mg Aspirin (Aspirin Chewable) [address] [facility] Last Admin: 06/24/17 11:18 Dose: 81 mg Dicyclomine HCl (Bentyl) [address] [facility] Last Admin: 06/29/17 18:02 Dose: 10 mg Epoetin Woody (Procrit) 10,[address] [facility] Last Admin: 06/28/17 09:49 Dose: 10,000 unit Furosemide (Lasix) [address] [facility] Last Admin: 06/29/17 18:02 Dose: 20 mg Furosemide (Lasix) 20 mg IVP ONCE PRN PRN Reason: before transfusion Last Admin: 06/29/17 01:27 Dose: 20 mg Metronidazole (Flagyl) 500 mg in 100 mls @ 100 mls/hr IVPB Q8 [facility] Last Admin: 06/29/17 13:45 Dose: 100 mls/hr Fluconazole (Diflucan Iv 200 Mg/100 Ml Ns) 100 mls @ 100 mls/hr IVPB DAILY [facility] Last Admin: 06/29/17 09:48 Dose: 100 mls/hr Cefepime HCl (Maxipime Iv 1 Gm Premix) 1 gm in 50 mls @ 100 mls/hr IVPB Q12H [facility] Last Admin: 06/29/17 11:09 Dose: 100 mls/hr Losartan Potassium (Cozaar) [address] [facility] Last Admin: 06/28/17 10:02 Dose: Not Given Methimazole (Tapazole) [address] [facility] Last Admin: 06/29/17 09:48 Dose: 5 mg Methylprednisolone (Solu-Medrol) 40 mg IVP Q4 PRN PRN Reason: Other Last Admin: 06/29/17 01:26 Dose: 40 mg Metoprolol Succinate (Toprol Xl) [address] [facility] Last Admin: 06/24/17 11:19 Dose: 25 mg Multivitamins (Hexavitamin) [address] [facility] Last Admin: 06/29/17 09:48 Dose: 1 tab Vancomycin HCl (Vancocin (Oral Or Rectal Use)) [address] [facility] Last Admin: 06/29/17 18:04 Dose: 250 mg - Labs Labs: 06/29/17 11:28 06/29/17 11:28 PT 18.2 SECONDS (9.7-12.2) H 06/27/17 11:09 INR 1.6 06/27/17 11:09 APTT 34 SECONDS (21-34) 06/15/17 13:26 Assessment and Plan (1) SOB (shortness of breath) Status: Acute (2) Myelodysplasia (myelodysplastic syndrome) Status: Acute
--- NOTE | 2017-06-29 22:51 | CP.PCM.PN ---
Subjective - Date & Time of Evaluation Date of Evaluation: 06/29/17 Time of Evaluation: 16:20 - Subjective Subjective: Patient seen and evaluated comfortable Denies chest pain and dyspnea CAD A Fib Medical management Objective - Vital Signs/Intake and Output Vital Signs (last 24 hours): Temp Pulse Resp BP Pulse Ox 97.3 F L 82 20 128/68 100 06/29/17 16:41 06/29/17 16:41 06/29/17 16:41 06/29/17 18:02 06/29/17 16:41 Intake and Output: 06/29/17 06/30/17 18:59 06:59 Intake Total 560 Balance 560 - Medications Medications: Current Medications Acetaminophen (Tylenol 325mg Tab) 650 mg PO Q4 PRN PRN Reason: blood transfusion Apixaban (Eliquis) 5 mg PO BID [facility] Last Admin: 06/24/17 11:18 Dose: 5 mg Aspirin (Aspirin Chewable) 81 mg PO DAILY [facility] Last Admin: 06/24/17 11:18 Dose: 81 mg Dicyclomine HCl (Bentyl) 10 mg PO BID [facility] Last Admin: 06/29/17 18:02 Dose: 10 mg Epoetin Woody (Procrit) 10,000 unit SC TTS [facility] Last Admin: 06/28/17 09:49 Dose: 10,000 unit Furosemide (Lasix) 20 mg PO BID [facility] Last Admin: 06/29/17 18:02 Dose: 20 mg Furosemide (Lasix) 20 mg IVP ONCE PRN PRN Reason: before transfusion Last Admin: 06/29/17 01:27 Dose: 20 mg Metronidazole (Flagyl) 500 mg in 100 mls @ 100 mls/hr IVPB Q8 [facility] Last Admin: 06/29/17 21:53 Dose: 100 mls/hr Fluconazole (Diflucan Iv 200 Mg/100 Ml Ns) 100 mls @ 100 mls/hr IVPB DAILY [facility] Last Admin: 06/29/17 09:48 Dose: 100 mls/hr Cefepime HCl (Maxipime Iv 1 Gm Premix) 1 gm in 50 mls @ 100 mls/hr IVPB Q12H [facility] Last Admin: 06/29/17 11:09 Dose: 100 mls/hr Losartan Potassium (Cozaar) 25 mg PO DAILY [facility] Last Admin: 06/28/17 10:02 Dose: Not Given Methimazole (Tapazole) 5 mg PO DAILY [facility] Last Admin: 06/29/17 09:48 Dose: 5 mg Methylprednisolone (Solu-Medrol) 40 mg IVP Q4 PRN PRN Reason: Other Last Admin: 06/29/17 01:26 Dose: 40 mg Metoprolol Succinate (Toprol Xl) 25 mg PO DAILY [facility] Last Admin: 06/24/17 11:19 Dose: 25 mg Multivitamins (Hexavitamin) 1 tab PO DAILY [facility] Last Admin: 06/29/17 09:48 Dose: 1 tab Vancomycin HCl (Vancocin (Oral Or Rectal Use)) 250 mg PO QID [facility] Last Admin: 06/29/17 22:11 Dose: 250 mg - Labs Labs: 06/29/17 11:28 06/29/17 11:28 PT 18.2 SECONDS (9.7-12.2) H 06/27/17 11:09 INR 1.6 06/27/17 11:09 APTT 34 SECONDS (21-34) 06/15/17 13:26
[2017-06-30] MEDS: Cefepime IV 1 gm in Dextrose 1 GM/50 ML BAG IVPB SCH ×2 (00:02→13:25)
--- NOTE | 2017-06-30 03:18 | PN ---
DATE: 06/29/2017 LOCATION: The patient is located in room 551, bed 1. REQUESTED BY: . REASON FOR FOLLOWUP: Hyponatremia. SUBJECTIVE: Mrs. Espino is a 77-year-old elderly [place] female with a past medical history significant for hypertension, myelodysplastic syndrome, anemia, CHF, and also AFib, PE, status post cardiac cath consistent with questionable thrombus in the distal RCA, on anticoagulation, who was admitted a few hours after she was discharged from the [facility] with shortness of breath to the emergency room in [facility]. The patient is also being treated for C. diff colitis and CT scan consistent with proctocolitis and multiple transfusions for anemia. The patient is feeling slightly better today and had a bowel movement x1. No shortness of breath. No chest pain. No palpitations. No fever today. No cough. Denies any shortness of breath. The patient claims that she was able to ambulate in the room today. PHYSICAL EXAMINATION: VITAL SIGNS: As follows: Blood pressure 119/74, pulse 82, respirations 20, temperature 97.3, saturation 100%. Height 5 feet 2 inches and weight is 124 pounds. GENERAL: Mrs. Espino is a 77-year-old elderly female, moderately built, moderately nourished, not in acute distress. HEENT: Pupils normal and equal to light and accommodation. Conjunctivae pink. Sclerae anicteric. Tongue is moist. Trachea is midline. LUNGS: Symmetric on both sides. Bilateral breath sounds present, and also bilateral basal crackles present. CVS: [place] at the fifth intercostal space in midclavicular line. S1, S2 audible. No murmur or gallop. ABDOMEN: Normal in appearance, soft, tympanic. No guarding. No hepatosplenomegaly. GREENHOUSE INSTRUCTOR: The patient is alert, awake, oriented x3. NEUROLOGIC: Nonfocal neuro examination. Cranial nerves II through XII grossly intact. Sensory and motor system is within normal limits. EXTREMITIES: No cyanosis, no clubbing. The patient has 1 to 2+ edema in both lower extremities. CURRENT MEDICATIONS: Include as follows: Aspirin 81 mg daily, on hold, 10 mg p.o. b.i.d., losartan on hold, Diflucan 200 mg IV piggyback daily, Eliquis is on hold, and Flagyl 500 mg IV q.8 hours, multivitamin one tablet daily, Lasix 20 mg p.o. b.i.d., cefepime 1 gm q.12 hours, and Procrit 10,000 units 3 times a week, Tapazole 5 mg p.o. daily, and metoprolol on hold, Tylenol 650 mg p.o. q. 4 hours p.r.n., vancomycin 250 mg p.o. q.i.d. LABORATORY DATA: Include as follows: As of 06/29/2017, WBC 5.5, hemoglobin 9, hematocrit is 26.9, platelets 393, neutrophils 76, bands 990, lymphocytes 12%, and eosinophils 1 as of 06/28/2017. Other laboratory data: CMP: Sodium 125, potassium 3.8, chloride 95, CO2 25, BUN 18, creatinine 0.5, glucose 165, calcium 7.9. Total bili 0.5, AST 14, ALT 27, alkaline phosphatase 78, total protein 5.3, albumin is 2.2. As of 06/27/2017, blood culture x2 negative on day #2. ASSESSMENT: In summary, Mrs. Espino is a 77-year-old elderly female with a history of hypertension, myelodysplastic syndrome, congestive heart failure, atrial fibrillation, pulmonary embolism, and also questionable thrombus in the distal right coronary artery, Clostridium difficile colitis, anemia, multiple transfusions, and low serum sodium. 1. Hyponatremia. Cannot rule out syndrome of inappropriate antidiuretic hormone secretion versus secondary to thyroid disorder. The patient is on Tapazole for long time. The patient responded very well with tolvaptan in the past and we will give one dose of tolvaptan 15 mg p.o. x1 and restrict fluids to 1 liter per day and also increase high-protein diet. Continue Nepro and Prostat. Repeat BMP in a.m. 2. Anemia secondary to myelodysplastic syndrome, status post transfusion. 3. Clostridium difficile colitis and CT scan consistent with proctitis and colitis, most likely secondary to Clostridium difficile. 4. Rule out sepsis. The patient was spiking before and the patient was responding to Diflucan and cefepime. Continue antibiotics as per ID recommendations, Flagyl, vancomycin, and Diflucan, and cefepime. We will follow with you. Thank you for allowing me to participate in your patient's care. Rehan Dos Santos MD cc: [facility] # [phone]
--- NOTE | 2017-06-30 03:20 | PCM.RRT ---
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 Assessment - Situation Date: 06/30/17 New IV Insertion Tolerance: Fair - Ventilator Settings SAO2 %: 97 - Constitutional Appears: In Acute Distress - Head Head Exam: NORMAL INSPECTION - Eyes Eye Exam: EOMI - Respiratory Exam Respiratory Exam: Accessory Muscle Use, Wheezes, Respiratory Distress - Cardiovascular Exam Cardiovascular Exam: Tachycardia, Irregular Rhythm, +S1, +S2 - GI/Abdominal Exam GI & Abdominal Exam: absent: Distended - Neurological Exam Neurological Exam: Awake Plan - Assessment of Findings&Treatment Plan 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ER was called for shortness of breath and tachycardia (HR 150s). Vitals were taken: BP 137/95, HR 156, T 99.8, O2 97%. Patient tachypneic, using accessory muscles, and tachycardic. EKG, ROMIs, CBC, CMP, Mg, Phos were ordered. Chest xray was ordered. Patient started on nebulizer treatment. EKG showed rapid afib. Cardizem 10mg IV stat was ordered. Patient placed on BiPAP, FiO2 100%. Repeat vitals: BP 158/87, HR 170. Cardizem 10mg IV given. Repeat vitals: BP 118/ 74, HR 128, O2 98%. Patient appears more comfortable and states she is feeling better. An additional 5mg of IV cardizem given. Vitals rechecked: BP 118/67, HR 112 (ranging from 90s-110), O2 100%. Dr. Skinner contacted. Given patient's hyercoaguable state, history of PE and MDS, should consider further workup.
[2017-06-30 04:11] LABS: ALB/GLOB RATIO 0.8 (1.0-2.1); ALBUMIN 2.6 g/dL (3.5-5.0); ALT/SGPT 30 U/L (9-52); AST/SGOT 18 U/L (14-36); BLOOD UREA NITROGEN 19 mg/dL (7-17); CALCIUM 8.1 mg/dl (8.6-10.4); GFR AFRICAN-AMERICAN > 60; GFR NON-AFRICAN AMERICAN > 60; MAGNESIUM 1.8 mg/dL (1.6-2.3)
[2017-06-30 04:13] LABS: BASO % 0.1 % (0.0-2.0); EOS # 0.2 K/uL (0.0-0.7); HEMOGLOBIN 11.1 g/dL (11.0-16.0); LYMPH # 1.1 K/uL (1.0-4.3); MEAN CELL VOLUME 85.7 fL (81.0-99.0); MEAN CORPUSCULAR HEMOGLOBIN 29.1 pg (27.0-31.0); MEAN CORPUSCULAR HGB CONC 33.9 g/dL (33.0-37.0); MEAN PLATELET VOLUME 10.2 fL (7.2-11.7); MONO # 0.1 K/uL (0.0-0.8); MONO % 0.6 % (0.0-10.0); NEUT # 8.4 K/uL (1.8-7.0); NEUT % 86.3 % (50.0-75.0); NRBC % 0.4 % (0.0-2.0); PLATELET COUNT 423 K/uL (130-400); RBC 3.81 Mil/uL (3.80-5.20); RED CELL DISTRIBUTION WIDTH 16.1 % (11.5-14.5); WHITE BLOOD COUNT 9.8 K/uL (4.8-10.8)
[2017-06-30 04:19] LABS: CK-MB 0.39 ng/mL (0.0-3.38)
[2017-06-30] MEDS: metroNIDAZOLE IV 500 mg/100 ml 500 MG/100 ML BAG IVPB SCH ×3 (06:01→21:21)
[2017-06-30 06:48] LABS: BANDS 8 % (0-2); EOSINOPHIL 4 % (0-4); LYMPHOCYTE 11 % (20-40); MONOCYTE 2 % (0-10); NEUTROPHIL 70 % (50-75); PLATELET ESTIMATE NORMAL (NORMAL); REACTIVE LYMPHOCYTES 5 % (0-0); TOTAL CELLS COUNTED 100
[2017-06-30 06:49] LABS: ANISOCYTOSIS SLIGHT; POIKILOCYTOSIS SLIGHT
[2017-06-30 06:50] LABS: POLYCHROMIC SLIGHT
[2017-06-30] MEDS: Albuterol-Ipratrop 3 mg / 0.5 (3 ml) UD INH SCH ×3 (07:17→20:11)
--- NOTE | 2017-06-30 08:51 | CP.PCM.PN ---
Subjective - Date & Time of Evaluation Date of Evaluation: 06/30/17 Time of Evaluation: 08:49 - Subjective Subjective: Rapid response was called this morning for shortness of breath and tachycardia, HR 156. At present, patient denies having nausea, vomiting, abdominal pain. She has not had a bowel movement this morning. Objective - Vital Signs/Intake and Output Vital Signs (last 24 hours): Temp Pulse Resp BP Pulse Ox 98.2 F 90 20 94/56 L 97 06/30/17 07:05 06/30/17 07:05 06/30/17 07:05 06/30/17 07:05 06/30/17 07:05 Intake and Output: 06/30/17 06/30/17 06:59 18:59 Output Total 100 Balance -100 - Medications Medications: Current Medications Acetaminophen (Tylenol 325mg Tab) 650 mg PO Q4 PRN PRN Reason: blood transfusion Last Admin: 06/30/17 03:04 Dose: 650 mg Albuterol/Ipratropium (Duoneb 3 Mg/0.5 Mg (3 Ml) Ud) 3 ml INH RQ6 [facility] Last Admin: 06/30/17 07:17 Dose: 3 ml Apixaban (Eliquis) 5 mg PO BID [facility] Last Admin: 06/24/17 11:18 Dose: 5 mg Aspirin (Aspirin Chewable) 81 mg PO DAILY [facility] Last Admin: 06/24/17 11:18 Dose: 81 mg Dicyclomine HCl (Bentyl) 10 mg PO BID [facility] Last Admin: 06/29/17 18:02 Dose: 10 mg Epoetin Woody (Procrit) 10,000 unit SC TTS [facility] Last Admin: 06/28/17 09:49 Dose: 10,000 unit Furosemide (Lasix) 20 mg PO BID [facility] Last Admin: 06/29/17 18:02 Dose: 20 mg Furosemide (Lasix) 20 mg IVP ONCE PRN PRN Reason: before transfusion Last Admin: 06/29/17 01:27 Dose: 20 mg Heparin Sodium (Porcine) (Heparin) 5,000 units SC Q8 [facility] Metronidazole (Flagyl) 500 mg in 100 mls @ 100 mls/hr IVPB Q8 [facility] Last Admin: 06/30/17 06:01 Dose: 100 mls/hr Fluconazole (Diflucan Iv 200 Mg/100 Ml Ns) 100 mls @ 100 mls/hr IVPB DAILY [facility] Last Admin: 06/29/17 09:48 Dose: 100 mls/hr Cefepime HCl (Maxipime Iv 1 Gm Premix) 1 gm in 50 mls @ 100 mls/hr IVPB Q12H [facility] Last Admin: 06/30/17 00:02 Dose: 100 mls/hr Losartan Potassium (Cozaar) 25 mg PO DAILY [facility] Last Admin: 06/28/17 10:02 Dose: Not Given Methimazole (Tapazole) 5 mg PO DAILY [facility] Last Admin: 06/29/17 09:48 Dose: 5 mg Methylprednisolone (Solu-Medrol) 40 mg IVP Q4 PRN PRN Reason: Other Last Admin: 06/29/17 01:26 Dose: 40 mg Metoprolol Succinate (Toprol Xl) 25 mg PO DAILY [facility] Last Admin: 06/24/17 11:19 Dose: 25 mg Multivitamins (Hexavitamin) 1 tab PO DAILY [facility] Last Admin: 06/29/17 09:48 Dose: 1 tab Vancomycin HCl (Vancocin (Oral Or Rectal Use)) 250 mg PO QID [facility] Last Admin: 06/29/17 22:11 Dose: 250 mg - Labs Labs: 06/30/17 03:52 06/30/17 03:52 PT 18.2 SECONDS (9.7-12.2) H 06/27/17 11:09 INR 1.6 06/27/17 11:09 APTT 34 SECONDS (21-34) 06/15/17 13:26 - Constitutional Appears: No Acute Distress - Head Exam Head Exam: ATRAUMATIC, NORMOCEPHALIC - Eye Exam Eye Exam: EOMI Pupil Exam: NORMAL ACCOMODATION - Neck Exam Neck Exam: absent: Lymphadenopathy, Thyromegaly - Respiratory Exam Respiratory Exam: NORMAL BREATHING PATTERN. absent: Rales, Rhonchi, Wheezes - Cardiovascular Exam Cardiovascular Exam: REGULAR RHYTHM, +S1, +S2. absent: Gallop, Rubs, Murmur - GI/Abdominal Exam GI & Abdominal Exam: Soft, Normal Bowel Sounds. absent: Tenderness, Mass, Organomegaly - Rectal Exam Rectal Exam: Deferred - Extremities Exam Extremities Exam: Pedal Edema. absent: Calf Tenderness Assessment and Plan (1) Fecal occult blood test positive Assessment & Plan: Patient denies having abdominal pain, nausea, vomiting. She has not had a bowel movement today, and there has been no christopher rectal bleeding. The HGB is up to 11.1 post transfusion. Since the EGD and colonoscopy were scheduled last week, Code Sepsis and Rapid Response have been called. I do not think she is stable for the GI workup at this time. Status: Acute
--- NOTE | 2017-06-30 08:58 | CP.PCM.PN ---
Subjective - Date & Time of Evaluation Date of Evaluation: 06/30/17 Time of Evaluation: 08:32 - Subjective Subjective: Pt had HR in to 150-170 but still want to go home. Pt no more diarrhea but was SOB last night. (+) dry cough Objective - Vital Signs/Intake and Output Vital Signs (last 24 hours): Temp Pulse Resp BP Pulse Ox 98.2 F 90 20 94/56 L 97 06/30/17 07:05 06/30/17 07:05 06/30/17 07:05 06/30/17 07:05 06/30/17 07:05 Intake and Output: 06/30/17 06/30/17 06:59 18:59 Output Total 100 Balance -100 - Medications Medications: Current Medications Acetaminophen (Tylenol 325mg Tab) 650 mg PO Q4 PRN PRN Reason: blood transfusion Last Admin: 06/30/17 03:04 Dose: 650 mg Albuterol/Ipratropium (Duoneb 3 Mg/0.5 Mg (3 Ml) Ud) 3 ml INH RQ6 [facility] Last Admin: 06/30/17 07:17 Dose: 3 ml Apixaban (Eliquis) 5 mg PO BID [facility] Last Admin: 06/24/17 11:18 Dose: 5 mg Aspirin (Aspirin Chewable) 81 mg PO DAILY [facility] Last Admin: 06/24/17 11:18 Dose: 81 mg Dicyclomine HCl (Bentyl) 10 mg PO BID [facility] Last Admin: 06/29/17 18:02 Dose: 10 mg Epoetin Woody (Procrit) 10,000 unit SC TTS [facility] Last Admin: 06/28/17 09:49 Dose: 10,000 unit Furosemide (Lasix) 20 mg PO BID [facility] Last Admin: 06/29/17 18:02 Dose: 20 mg Furosemide (Lasix) 20 mg IVP ONCE PRN PRN Reason: before transfusion Last Admin: 06/29/17 01:27 Dose: 20 mg Heparin Sodium (Porcine) (Heparin) 5,000 units SC Q8 [facility] Metronidazole (Flagyl) 500 mg in 100 mls @ 100 mls/hr IVPB Q8 [facility] Last Admin: 06/30/17 06:01 Dose: 100 mls/hr Fluconazole (Diflucan Iv 200 Mg/100 Ml Ns) 100 mls @ 100 mls/hr IVPB DAILY [facility] Last Admin: 06/29/17 09:48 Dose: 100 mls/hr Cefepime HCl (Maxipime Iv 1 Gm Premix) 1 gm in 50 mls @ 100 mls/hr IVPB Q12H [facility] Last Admin: 06/30/17 00:02 Dose: 100 mls/hr Losartan Potassium (Cozaar) 25 mg PO DAILY [facility] Last Admin: 06/28/17 10:02 Dose: Not Given Methimazole (Tapazole) 5 mg PO DAILY [facility] Last Admin: 06/29/17 09:48 Dose: 5 mg Methylprednisolone (Solu-Medrol) 40 mg IVP Q4 PRN PRN Reason: Other Last Admin: 06/29/17 01:26 Dose: 40 mg Metoprolol Succinate (Toprol Xl) 25 mg PO DAILY [facility] Last Admin: 06/24/17 11:19 Dose: 25 mg Multivitamins (Hexavitamin) 1 tab PO DAILY [facility] Last Admin: 06/29/17 09:48 Dose: 1 tab Vancomycin HCl (Vancocin (Oral Or Rectal Use)) 250 mg PO QID [facility] Last Admin: 06/29/17 22:11 Dose: 250 mg - Labs Labs: 06/30/17 03:52 06/30/17 03:52 PT 18.2 SECONDS (9.7-12.2) H 06/27/17 11:09 INR 1.6 06/27/17 11:09 APTT 34 SECONDS (21-34) 06/15/17 13:26 - Constitutional Appears: No Acute Distress - Eye Exam Eye Exam: Normal appearance - ENT Exam ENT Exam: Mucous Membranes Moist - Neck Exam Neck Exam: Full ROM. absent: Lymphadenopathy, Thyromegaly - Respiratory Exam Respiratory Exam: Decreased Breath Sounds, Rales, Rhonchi. absent: Wheezes - Cardiovascular Exam Cardiovascular Exam: +S1, +S2. absent: Gallop, REGULAR RHYTHM - GI/Abdominal Exam GI & Abdominal Exam: Soft. absent: Tenderness, Mass - Extremities Exam Extremities Exam: Full ROM, Normal Capillary Refill, Pedal Edema. absent: Joint Swelling Assessment and Plan - Assessment and Plan (Free Text) Assessment: PAF w/ h/o of recnet PE HTN, Hyperthyroidism C diff infection; COPD, Exac Chronic Hyponatremia; MDS Cont meds. Heparin started c/o Cardio
--- NOTE | 2017-06-30 08:58 | RAD ---
HISTORY: sob COMPARISON: 06/27/2017 FINDINGS: LUNGS: Bibasilar opacities, nonspecific. New since prior examination. Followup to exclude pneumonia. PLEURA: Minimal blunting of both costophrenic angles may reflect pleural effusion or chronic pleural thickening. No change from previous. No pneumothorax. CARDIOVASCULAR: Normal. OSSEOUS STRUCTURES: No significant abnormalities. VISUALIZED UPPER ABDOMEN: Normal. OTHER FINDINGS: None. IMPRESSION: Bibasilar opacities. Possible pneumonia. Possible very small bilateral pleural effusion versus chronic pleural thickening.
[2017-06-30] MEDS: Multiple Vitamins Tab PO SCH (09:18)
[2017-06-30] MEDS: methIMAzole 5 MG TAB PO SCH (09:18)
[2017-06-30] MEDS: Vancomycin 125 MG/5 ML SOLN (ORAL/RECTAL) PO SCH ×4 (09:50→21:18)
[2017-06-30] MEDS ORDERED: Digoxin 500 mcg/2ml (0.5 mg/2ml) Inj IVP ONE (11:45)
[2017-06-30 11:53] LABS: ABG ALLEN TEST POS; ARTERIAL BLOOD GAS HCO3 26.7 mmol/L (21-28); ARTERIAL BLOOD GAS HEMOGLOBIN 9.8 g/dL (11.7-17.4); ARTERIAL BLOOD GAS O2 SAT 30.4 % (95-98); ARTERIAL BLOOD GAS PCO2 52 mm/Hg (35-45); ARTERIAL BLOOD GAS PH 7.37 (7.35-7.45); ARTERIAL BLOOD GAS PO2 14 mm/Hg (80-100); ARTERIAL BLOOD GAS TCO2 31.7 mmol/L (22-28)
--- NOTE | 2017-06-30 12:00 | CP.PCM.PN ---
Subjective - Date & Time of Evaluation Date of Evaluation: 06/30/17 Time of Evaluation: 11:55 - Subjective Subjective: PROGRESS NOTE. RAPID RESPONSE NOTE. Rapid response called at roughly 1140 AM. Called for tachycardia and shortness of breath. Pt states she feels "cold and clammy". Trouble breathing. Objective - Vital Signs/Intake and Output Vital Signs (last 24 hours): Temp Pulse Resp BP Pulse Ox 98.2 F 90 20 94/56 L 97 06/30/17 07:05 06/30/17 07:05 06/30/17 07:05 06/30/17 07:05 06/30/17 07:05 Intake and Output: 06/30/17 06/30/17 06:59 18:59 Output Total 100 Balance -100 - Medications Medications: Current Medications Acetaminophen (Tylenol 325mg Tab) 650 mg PO Q4 PRN PRN Reason: blood transfusion Last Admin: 06/30/17 03:04 Dose: 650 mg Albuterol/Ipratropium (Duoneb 3 Mg/0.5 Mg (3 Ml) Ud) 3 ml INH RQ6 [facility] Last Admin: 06/30/17 07:17 Dose: 3 ml Apixaban (Eliquis) 5 mg PO BID [facility] Last Admin: 06/24/17 11:18 Dose: 5 mg Aspirin (Aspirin Chewable) 81 mg PO DAILY [facility] Last Admin: 06/24/17 11:18 Dose: 81 mg Dicyclomine HCl (Bentyl) 10 mg PO BID [facility] Last Admin: 06/30/17 09:18 Dose: 10 mg Digoxin (Lanoxin) 0.25 mg IVP ONCE ONE Stop: 06/30/17 11:46 Diltiazem HCl (Cardizem) 5 mg IVP STAT STA Stop: 06/30/17 11:41 Epoetin Woody (Procrit) 10,000 unit SC TTS [facility] Last Admin: 06/28/17 09:49 Dose: 10,000 unit Furosemide (Lasix) 20 mg PO BID [facility] Last Admin: 06/29/17 18:02 Dose: 20 mg Furosemide (Lasix) 20 mg IVP ONCE PRN PRN Reason: before transfusion Last Admin: 06/29/17 01:27 Dose: 20 mg Furosemide (Lasix) 20 mg IVP STAT STA Stop: 06/30/17 11:42 Heparin Sodium (Porcine) (Heparin) 5,000 units SC Q8 [facility] Last Admin: 06/30/17 09:30 Dose: 5,000 units Metronidazole (Flagyl) 500 mg in 100 mls @ 100 mls/hr IVPB Q8 [facility] Last Admin: 06/30/17 06:01 Dose: 100 mls/hr Fluconazole (Diflucan Iv 200 Mg/100 Ml Ns) 100 mls @ 100 mls/hr IVPB DAILY [facility] Last Admin: 06/29/17 09:48 Dose: 100 mls/hr Cefepime HCl (Maxipime Iv 1 Gm Premix) 1 gm in 50 mls @ 100 mls/hr IVPB Q12H [facility] Last Admin: 06/30/17 00:02 Dose: 100 mls/hr Losartan Potassium (Cozaar) 25 mg PO DAILY [facility] Last Admin: 06/28/17 10:02 Dose: Not Given Methimazole (Tapazole) 5 mg PO DAILY [facility] Last Admin: 06/30/17 09:18 Dose: 5 mg Methylprednisolone (Solu-Medrol) 40 mg IVP Q4 PRN PRN Reason: Other Last Admin: 06/29/17 01:26 Dose: 40 mg Metoprolol Succinate (Toprol Xl) 25 mg PO DAILY [facility] Last Admin: 06/24/17 11:19 Dose: 25 mg Multivitamins (Hexavitamin) 1 tab PO DAILY [facility] Last Admin: 06/30/17 09:18 Dose: 1 tab Vancomycin HCl (Vancocin (Oral Or Rectal Use)) 250 mg PO QID [facility] Last Admin: 06/30/17 09:50 Dose: 250 mg - Labs Labs: 06/30/17 03:52 06/30/17 03:52 PT 18.2 SECONDS (9.7-12.2) H 06/27/17 11:09 INR 1.6 06/27/17 11:09 APTT 34 SECONDS (21-34) 06/15/17 13:26 - Constitutional Appears: In Acute Distress - Head Exam Head Exam: ATRAUMATIC, NORMAL INSPECTION, NORMOCEPHALIC - Eye Exam Eye Exam: EOMI - ENT Exam ENT Exam: Mucous Membranes Moist - Neck Exam Neck Exam: Full ROM - Respiratory Exam Respiratory Exam: Decreased Breath Sounds - Cardiovascular Exam Cardiovascular Exam: Tachycardia, Irregular Rhythm, +S1, +S2 - GI/Abdominal Exam GI & Abdominal Exam: Soft, Normal Bowel Sounds. absent: Tenderness - Extremities Exam Extremities Exam: Full ROM, Normal Inspection - Neurological Exam Neurological Exam: Alert, Awake, CN II-XII Intact - Psychiatric Exam Psychiatric exam: Flat Affect - Skin Skin Exam: Dry, Intact, Normal Color, Warm Assessment and Plan - Assessment and Plan (Free Text) Assessment: Rapid response called for SOB and tachycardia -attending notified, DR MCGEE -EKG ordered- showed rapid a fib with RVR -stat CXR ordered -pt likely fluid overloaded -as pt has been getting fluid from antimicrobials and packed red cell transfusion yesterday -stat ABG -will give stat dose of lasix IV -will also give IV cardizem 5 for rate control -also will give 1 dose of digoxin IV -metoprolol was held because of patient's blood pressure discussed with DR GALLEGOS AND RAFI
[2017-06-30 13:18] LABS: ARTERIAL BLOOD GAS HCO3 27.3 mmol/L (21-28); ARTERIAL BLOOD GAS O2 SAT 99.6 % (95-98); ARTERIAL BLOOD GAS PCO2 31 mm/Hg (35-45); ARTERIAL BLOOD GAS PH 7.52 (7.35-7.45); ARTERIAL BLOOD GAS PO2 292 mm/Hg (80-100); ARTERIAL BLOOD GAS TCO2 26.3 mmol/L (22-28)
[2017-06-30] MEDS: Fluconazole IV 200mg/100 ml NS 100 ML IVPB SCH (13:34)
--- NOTE | 2017-06-30 13:38 | CP.PCM.PN ---
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 with RVR, sob s/p iv cardizem Objective - Vital Signs/Intake and Output Vital Signs (last 24 hours): Temp Pulse Resp BP Pulse Ox 99.6 F 125 H 22 139/65 97 06/30/17 13:20 06/30/17 13:20 06/30/17 13:20 06/30/17 13:20 06/30/17 07:05 Intake and Output: 06/30/17 06/30/17 06:59 18:59 Output Total 100 Balance -100 - Medications Medications: Current Medications Acetaminophen (Tylenol 325mg Tab) 650 mg PO Q4 PRN PRN Reason: blood transfusion Last Admin: 06/30/17 03:04 Dose: 650 mg Albuterol/Ipratropium (Duoneb 3 Mg/0.5 Mg (3 Ml) Ud) 3 ml INH RQ6 [facility] Last Admin: 06/30/17 07:17 Dose: 3 ml Apixaban (Eliquis) 5 mg PO BID [facility] Last Admin: 06/24/17 11:18 Dose: 5 mg Aspirin (Aspirin Chewable) 81 mg PO DAILY [facility] Last Admin: 06/24/17 11:18 Dose: 81 mg Dicyclomine HCl (Bentyl) 10 mg PO BID [facility] Last Admin: 06/30/17 09:18 Dose: 10 mg Epoetin Woody (Procrit) 10,000 unit SC TTS [facility] Last Admin: 06/28/17 09:49 Dose: 10,000 unit Furosemide (Lasix) 20 mg IVP ONCE PRN PRN Reason: before transfusion Last Admin: 06/29/17 01:27 Dose: 20 mg Furosemide (Lasix) 20 mg PO BID [facility] Heparin Sodium (Porcine) (Heparin) 5,000 units SC Q8 [facility] Last Admin: 06/30/17 09:30 Dose: 5,000 units Metronidazole (Flagyl) 500 mg in 100 mls @ 100 mls/hr IVPB Q8 [facility] Last Admin: 06/30/17 06:01 Dose: 100 mls/hr Fluconazole (Diflucan Iv 200 Mg/100 Ml Ns) 100 mls @ 100 mls/hr IVPB DAILY [facility] Last Admin: 06/30/17 13:34 Dose: 100 mls/hr Cefepime HCl (Maxipime Iv 1 Gm Premix) 1 gm in 50 mls @ 100 mls/hr IVPB Q12H [facility] Last Admin: 06/30/17 13:25 Dose: 100 mls/hr Losartan Potassium (Cozaar) 25 mg PO DAILY [facility] Last Admin: 06/28/17 10:02 Dose: Not Given Methimazole (Tapazole) 5 mg PO DAILY [facility] Last Admin: 06/30/17 09:18 Dose: 5 mg Methylprednisolone (Solu-Medrol) 40 mg IVP Q4 PRN PRN Reason: Other Last Admin: 06/29/17 01:26 Dose: 40 mg Metoprolol Succinate (Toprol Xl) 25 mg PO DAILY [facility] Last Admin: 06/24/17 11:19 Dose: 25 mg Multivitamins (Hexavitamin) 1 tab PO DAILY [facility] Last Admin: 06/30/17 09:18 Dose: 1 tab Vancomycin HCl (Vancocin (Oral Or Rectal Use)) 250 mg PO QID [facility] Last Admin: 06/30/17 13:25 Dose: 250 mg - Labs Labs: 06/30/17 03:52 06/30/17 03:52 PT 18.2 SECONDS (9.7-12.2) H 06/27/17 11:09 INR 1.6 06/27/17 11:09 APTT 34 SECONDS (21-34) 06/15/17 13:26
--- NOTE | 2017-06-30 14:08 | CP.PCM.PN ---
Subjective - Date & Time of Evaluation Date of Evaluation: 06/30/17 Time of Evaluation: 10:45 - Subjective Subjective: Patient was seen and examined at the bedside. Patient had a rapid response called today due to shortness of breath and a heart rate (150s). Patient was given nebulizer treatment, placed on Bipap, and given cardizem for EKG finding of rapid afib (10mg, 10mg, 5 mg). Patient being treated for c diff infection and pneumonia but denies any diarrhea today. Assessment/Plan Pneumonia -CXray showed bibasilar opacities, possible pneumonia, possible very small bilateral pleural effusion vs chronic pleural thickening. -continue antibiotic cefepime -BiPAP -repeat ABG Shortness of Breath -Bipap -duoneb as needed -Echo- normal EF (60-65%) C Diff -continue flagyl, vancomycin -GI colonoscopy/EGD when stable Afib -cardizem drip -on heparin -consider ICU transfer -follow cardio recs Objective - Vital Signs/Intake and Output Vital Signs (last 24 hours): Temp Pulse Resp BP Pulse Ox 99.6 F 125 H 22 139/65 97 06/30/17 13:20 06/30/17 13:20 06/30/17 13:20 06/30/17 13:20 06/30/17 07:05 Intake and Output: 06/30/17 06/30/17 06:59 18:59 Output Total 100 Balance -100 - Medications Medications: Current Medications Acetaminophen (Tylenol 325mg Tab) 650 mg PO Q4 PRN PRN Reason: blood transfusion Last Admin: 06/30/17 03:04 Dose: 650 mg Albuterol/Ipratropium (Duoneb 3 Mg/0.5 Mg (3 Ml) Ud) 3 ml INH RQ6 [facility] Last Admin: 06/30/17 13:52 Dose: 3 ml Apixaban (Eliquis) 5 mg PO BID [facility] Last Admin: 06/24/17 11:18 Dose: 5 mg Aspirin (Aspirin Chewable) 81 mg PO DAILY [facility] Last Admin: 06/24/17 11:18 Dose: 81 mg Dicyclomine HCl (Bentyl) 10 mg PO BID [facility] Last Admin: 06/30/17 09:18 Dose: 10 mg Epoetin Woody (Procrit) 10,000 unit SC TTS [facility] Last Admin: 06/28/17 09:49 Dose: 10,000 unit Furosemide (Lasix) 20 mg IVP ONCE PRN PRN Reason: before transfusion Last Admin: 06/29/17 01:27 Dose: 20 mg Furosemide (Lasix) 20 mg PO BID [facility] Heparin Sodium (Porcine) (Heparin) 5,000 units SC Q8 [facility] Last Admin: 06/30/17 09:30 Dose: 5,000 units Metronidazole (Flagyl) 500 mg in 100 mls @ 100 mls/hr IVPB Q8 [facility] Last Admin: 06/30/17 06:01 Dose: 100 mls/hr Fluconazole (Diflucan Iv 200 Mg/100 Ml Ns) 100 mls @ 100 mls/hr IVPB DAILY [facility] Last Admin: 06/30/17 13:34 Dose: 100 mls/hr Cefepime HCl (Maxipime Iv 1 Gm Premix) 1 gm in 50 mls @ 100 mls/hr IVPB Q12H [facility] Last Admin: 06/30/17 13:25 Dose: 100 mls/hr Losartan Potassium (Cozaar) 25 mg PO DAILY [facility] Last Admin: 06/28/17 10:02 Dose: Not Given Methimazole (Tapazole) 5 mg PO DAILY [facility] Last Admin: 06/30/17 09:18 Dose: 5 mg Methylprednisolone (Solu-Medrol) 40 mg IVP Q4 PRN PRN Reason: Other Last Admin: 06/29/17 01:26 Dose: 40 mg Metoprolol Succinate (Toprol Xl) 25 mg PO DAILY [facility] Last Admin: 06/24/17 11:19 Dose: 25 mg Multivitamins (Hexavitamin) 1 tab PO DAILY [facility] Last Admin: 06/30/17 09:18 Dose: 1 tab Vancomycin HCl (Vancocin (Oral Or Rectal Use)) 250 mg PO QID [facility] Last Admin: 06/30/17 13:25 Dose: 250 mg - Labs Labs: 06/30/17 03:52 06/30/17 03:52 PT 18.2 SECONDS (9.7-12.2) H 06/27/17 11:09 INR 1.6 06/27/17 11:09 APTT 34 SECONDS (21-34) 06/15/17 13:26 Assessment and Plan (1) SOB (shortness of breath) Status: Acute (2) Myelodysplasia (myelodysplastic syndrome) Status: Acute
--- NOTE | 2017-06-30 14:14 | CP.PCM.PN ---
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 Dr Sosa to re-eval Objective - Vital Signs/Intake and Output Vital Signs (last 24 hours): Temp Pulse Resp BP Pulse Ox 99.6 F 125 H 22 139/65 97 06/30/17 13:20 06/30/17 14:04 06/30/17 13:20 06/30/17 13:20 06/30/17 07:05 Intake and Output: 06/30/17 06/30/17 06:59 18:59 Output Total 100 Balance -100 - Medications Medications: Current Medications Acetaminophen (Tylenol 325mg Tab) 650 mg PO Q4 PRN PRN Reason: blood transfusion Last Admin: 06/30/17 03:04 Dose: 650 mg Albuterol/Ipratropium (Duoneb 3 Mg/0.5 Mg (3 Ml) Ud) 3 ml INH RQ6 [facility] Last Admin: 06/30/17 13:52 Dose: 3 ml Apixaban (Eliquis) 5 mg PO BID [facility] Last Admin: 06/24/17 11:18 Dose: 5 mg Aspirin (Aspirin Chewable) 81 mg PO DAILY [facility] Last Admin: 06/24/17 11:18 Dose: 81 mg Dicyclomine HCl (Bentyl) 10 mg PO BID [facility] Last Admin: 06/30/17 09:18 Dose: 10 mg Epoetin Woody (Procrit) 10,000 unit SC TTS [facility] Last Admin: 06/28/17 09:49 Dose: 10,000 unit Furosemide (Lasix) 20 mg IVP ONCE PRN PRN Reason: before transfusion Last Admin: 06/29/17 01:27 Dose: 20 mg Furosemide (Lasix) 20 mg PO BID [facility] Heparin Sodium (Porcine) (Heparin) 5,000 units SC Q8 [facility] Last Admin: 06/30/17 09:30 Dose: 5,000 units Metronidazole (Flagyl) 500 mg in 100 mls @ 100 mls/hr IVPB Q8 [facility] Last Admin: 06/30/17 06:01 Dose: 100 mls/hr Fluconazole (Diflucan Iv 200 Mg/100 Ml Ns) 100 mls @ 100 mls/hr IVPB DAILY [facility] Last Admin: 06/30/17 13:34 Dose: 100 mls/hr Cefepime HCl (Maxipime Iv 1 Gm Premix) 1 gm in 50 mls @ 100 mls/hr IVPB Q12H [facility] Last Admin: 06/30/17 13:25 Dose: 100 mls/hr Losartan Potassium (Cozaar) 25 mg PO DAILY [facility] Last Admin: 06/28/17 10:02 Dose: Not Given Methimazole (Tapazole) 5 mg PO DAILY [facility] Last Admin: 06/30/17 09:18 Dose: 5 mg Methylprednisolone (Solu-Medrol) 40 mg IVP Q4 PRN PRN Reason: Other Last Admin: 06/29/17 01:26 Dose: 40 mg Metoprolol Succinate (Toprol Xl) 25 mg PO DAILY [facility] Last Admin: 06/24/17 11:19 Dose: 25 mg Multivitamins (Hexavitamin) 1 tab PO DAILY [facility] Last Admin: 06/30/17 09:18 Dose: 1 tab Vancomycin HCl (Vancocin (Oral Or Rectal Use)) 250 mg PO QID [facility] Last Admin: 06/30/17 13:25 Dose: 250 mg - Labs Labs: 06/30/17 03:52 06/30/17 03:52 PT 18.2 SECONDS (9.7-12.2) H 06/27/17 11:09 INR 1.6 06/27/17 11:09 APTT 34 SECONDS (21-34) 06/15/17 13:26 - Constitutional Appears: Cachectic, Chronically Ill - Head Exam Head Exam: NORMOCEPHALIC - Eye Exam Eye Exam: absent: Scleral icterus - ENT Exam ENT Exam: Mucous Membranes Dry - Neck Exam Neck Exam: absent: Lymphadenopathy - Respiratory Exam Respiratory Exam: Decreased Breath Sounds, Rales - Cardiovascular Exam Cardiovascular Exam: REGULAR RHYTHM - GI/Abdominal Exam GI & Abdominal Exam: Distended - Rectal Exam Rectal Exam: Deferred - Extremities Exam Extremities Exam: Pedal Edema - Back Exam Back Exam: absent: CVA tenderness (L), CVA tenderness (R) - Neurological Exam Neurological Exam: Altered Assessment and Plan (1) CHF (congestive heart failure) Status: Acute (2) Rapid atrial fibrillation Status: Acute (3) CAD (coronary artery disease) Status: Acute (4) Cough Status: Acute (5) Dehydration Status: Acute (6) Hyponatremia Status: Acute (7) Lower respiratory infection Status: Acute (8) Myelodysplasia (myelodysplastic syndrome) Status: Acute - Assessment and Plan (Free Text) Assessment: dr sosa to follow cont IV rx
--- NOTE | 2017-06-30 14:37 | CP.PCM.CON ---
<BarryShlomo R - Last Filed: 06/30/17 15:21> History of Present Illness - History of Present Illness History of Present Illness: CC: Short of breath 77 y/o female with MDS, recent PE (04/2017), CAD. Patient had recent admission for Pneumonia and NSTEMI. Patient was sent for (+) Cath but unable to mechanically open the obstructive vessel. Patient treated medically and sent home. At home she felt weak and short of breath and was sent back to ER and was admitted. Today a [employer] was called due to shortness of breath and tachycardia (HR 150s). Patient was lethargic on Bipap, thus ROS unobtainable. PMHx collected from chart review. PMHx: Myelodysplastic Syndrome, Recent PE, CAD, AFib, GERD, HTN, Hx of C. difficile colitis PSHx: Unobtainable - Patient was lethargic on Bipap Allergies: NKDA Home meds: norvasc 5mg PO QD, eliquis, plavix 75mg PO QD, metoprolol tartrate 25mg PO QD SocialHx: Unobtainable - Patient was lethargic on Bipap FamHx: Unobtainable - Patient was lethargic on Bipap Review of Systems - Review of Systems Systems not reviewed;Unavailable: Respiratory Distress Past Patient History - Infectious Disease Hx of Infectious Diseases: None - Past Medical History & Family History Past Medical History?: Yes - Past Social History Smoking Status: Never Smoked Home Situation {Lives}: With Family - CARDIAC Hx Congestive Heart Failure: Yes Hx Hypercholesterolemia: Yes Hx Hypertension: Yes - PULMONARY Hx Pneumonia: Yes Hx Pulmonary Embolism: Yes - NEUROLOGICAL Hx Neurological Disorder: No - HEENT Hx HEENT Problems: No - RENAL Hx Chronic Kidney Disease: No - ENDOCRINE/METABOLIC Hx Hypothyroidism: Yes - HEMATOLOGICAL/ONCOLOGICAL Hx Anemia: Yes - INTEGUMENTARY Hx Dermatological Problems: No - MUSCULOSKELETAL/RHEUMATOLOGICAL Hx Musculoskeletal Disorders: Yes Hx Falls: Yes - GASTROINTESTINAL Hx Gastritis: Yes - GENITOURINARY/GYNECOLOGICAL Hx Genitourinary Disorders: No - PSYCHIATRIC Hx Substance Use: No - SURGICAL HISTORY Hx Surgeries: Yes Hx Cardiac Catheterization: Yes (2017) - ANESTHESIA Hx Anesthesia: No Hx Anesthesia Reactions: No Hx Malignant Hyperthermia: No Meds Allergies/Adverse Reactions: Allergies Allergy/AdvReac Type Severity Reaction Status Date / Time No Known Allergies Allergy Verified 06/15/17 12:10 - Medications Medications: Current Medications Acetaminophen (Tylenol 325mg Tab) 650 mg PO Q4 PRN PRN Reason: blood transfusion Last Admin: 06/30/17 03:04 Dose: 650 mg Albuterol/Ipratropium (Duoneb 3 Mg/0.5 Mg (3 Ml) Ud) 3 ml INH RQ6 [facility] Last Admin: 06/30/17 13:52 Dose: 3 ml Apixaban (Eliquis) 5 mg PO BID [facility] Last Admin: 06/24/17 11:18 Dose: 5 mg Aspirin (Aspirin Chewable) 81 mg PO DAILY [facility] Last Admin: 06/24/17 11:18 Dose: 81 mg Dicyclomine HCl (Bentyl) 10 mg PO BID [facility] Last Admin: 06/30/17 09:18 Dose: 10 mg Epoetin Woody (Procrit) 10,000 unit SC TTS [facility] Last Admin: 06/28/17 09:49 Dose: 10,000 unit Furosemide (Lasix) 20 mg IVP ONCE PRN PRN Reason: before transfusion Last Admin: 06/29/17 01:27 Dose: 20 mg Furosemide (Lasix) 20 mg PO BID [facility] Heparin Sodium (Porcine) (Heparin) 5,000 units SC Q8 [facility] Last Admin: 06/30/17 09:30 Dose: 5,000 units Metronidazole (Flagyl) 500 mg in 100 mls @ 100 mls/hr IVPB Q8 [facility] Last Admin: 06/30/17 06:01 Dose: 100 mls/hr Fluconazole (Diflucan Iv 200 Mg/100 Ml Ns) 100 mls @ 100 mls/hr IVPB DAILY [facility] Last Admin: 06/30/17 13:34 Dose: 100 mls/hr Cefepime HCl (Maxipime Iv 1 Gm Premix) 1 gm in 50 mls @ 100 mls/hr IVPB Q12H [facility] Last Admin: 06/30/17 13:25 Dose: 100 mls/hr Diltiazem HCl 125 mg/ Dextrose 125 mls @ 5 mls/hr IV .Q24H VARINDER; 5 MG/HR PRN Reason: Protocol Losartan Potassium (Cozaar) 25 mg PO DAILY [facility] Last Admin: 06/28/17 10:02 Dose: Not Given Methimazole (Tapazole) 5 mg PO DAILY [facility] Last Admin: 06/30/17 09:18 Dose: 5 mg Methylprednisolone (Solu-Medrol) 40 mg IVP Q4 PRN PRN Reason: Other Last Admin: 06/29/17 01:26 Dose: 40 mg Metoprolol Succinate (Toprol Xl) 25 mg PO DAILY [facility] Last Admin: 06/24/17 11:19 Dose: 25 mg Multivitamins (Hexavitamin) 1 tab PO DAILY [facility] Last Admin: 06/30/17 09:18 Dose: 1 tab Vancomycin HCl (Vancocin (Oral Or Rectal Use)) 250 mg PO QID [facility] Last Admin: 06/30/17 13:25 Dose: 250 mg Physical Exam - Constitutional Appears: Toxic, In Acute Distress - Head Exam Head Exam: ATRAUMATIC - Eye Exam Eye Exam: EOMI Pupil Exam: PERRL - ENT Exam ENT Exam: Mucous Membranes Moist, Normal Exam - Neck Exam Neck exam: Positive for: Normal Inspection - Respiratory Exam Respiratory Exam: Accessory Muscle Use, Rales, Rhonchi, Wheezes Additional comments: On Bipap - Cardiovascular Exam Cardiovascular Exam: Tachycardia, Irregular Rhythm, +S1, +S2. absent: JVD, Systolic Murmur - GI/Abdominal Exam GI & Abdominal Exam: Normal Bowel Sounds, Soft. absent: Tenderness - Extremities Exam Extremities exam: Positive for: pedal edema - Neurological Exam Neurological exam: Altered - Skin Skin Exam: Intact, Normal Color, Warm Results - Vital Signs Recent Vital Signs: Last Vital Signs Temp 99.6 F 06/30/17 13:20 Pulse 125 H 06/30/17 14:04 Resp 22 06/30/17 13:20 BP 139/65 06/30/17 13:20 Pulse Ox 97 06/30/17 07:05 - Labs Result Diagrams: 06/30/17 03:52 06/30/17 03:52 Labs: Laboratory Results - last 24 hr 06/30/17 06/30/17 06/30/17 03:52 03:52 11:40 WBC 9.8 D RBC 3.81 Hgb 11.1 D Hct 32.6 L MCV 85.7 MCH 29.1 MCHC 33.9 RDW 16.1 H Plt Count 423 H MPV 10.2 Neut % (Auto) 86.3 H Lymph % (Auto) 11.0 L [place] % (Auto) 0.6 Eos % (Auto) 2.0 Baso % (Auto) 0.1 Neut # (Auto) 8.4 H Lymph # (Auto) 1.1 [place] # (Auto) 0.1 Eos # (Auto) 0.2 Baso # (Auto) 0.0 Neutrophils % (Manual) 70 Band Neutrophils % 8 H Lymphocytes % (Manual) 11 L Reactive Lymphs % 5 H Monocytes % (Manual) 2 Eosinophils % (Manual) 4 Platelet Estimate Normal Polychromasia Slight Poikilocytosis (manual Slight Anisocytosis (manual) Slight Puncture Site L/b pCO2 52 H pO2 14 L* HCO3 26.7 ABG pH 7.37 ABG Total CO2 31.7 H ABG O2 Saturation 30.4 L ABG Base Excess 4.0 H ABG Hemoglobin 9.8 L ABG Carboxyhemoglobin 0.7 POC ABG HHb (Measured) 68.4 H ABG Methemoglobin 1.0 Fabrice Test Pos ABG Potassium A-a O2 Difference 634.0 Respiratory Index 45.3 Hgb O2 Saturation 29.9 L Glucose Lactate FiO2 100.0 Inspiratory BiPAP 12 Expiratory BiPAP 6 Crit Value Called To Dr alfredo esparza Crit Value Called By Tomas freedman kindergarten prep teacher Crit Value Read Back Y Blood Gas Notified Time 1155 Sodium 126 L Potassium 4.2 Chloride 92 L Carbon Dioxide 25 Anion Gap 13 BUN 19 H Creatinine 0.5 L Est GFR ( Amer) > 60 Est GFR (Non-Af Amer) > 60 Random Glucose 114 H Calcium 8.1 L Phosphorus 2.8 Magnesium 1.8 Total Bilirubin 0.7 AST 18 ALT 30 Alkaline Phosphatase 79 Total Creatine Kinase < 20 L CK-MB (Mass) 0.39 Troponin I < 0.0120 NT-Pro-B Natriuret Pep Total Protein 6.1 L Albumin 2.6 L Globulin 3.5 Albumin/Globulin Ratio 0.8 L TSH 3rd Generation Arterial Blood Potassium 06/30/17 06/30/17 13:10 13:14 WBC RBC Hgb Hct MCV MCH MCHC RDW Plt Count MPV Neut % (Auto) Lymph % (Auto) [place] % (Auto) Eos % (Auto) Baso % (Auto) Neut # (Auto) Lymph # (Auto) [place] # (Auto) Eos # (Auto) Baso # (Auto) Neutrophils % (Manual) Band Neutrophils % Lymphocytes % (Manual) Reactive Lymphs % Monocytes % (Manual) Eosinophils % (Manual) Platelet Estimate Polychromasia Poikilocytosis (manual Anisocytosis (manual) Puncture Site Lb pCO2 31 L pO2 292 H HCO3 27.3 ABG pH 7.52 H ABG Total CO2 26.3 ABG O2 Saturation 99.6 H ABG Base Excess 3.0 ABG Hemoglobin ABG Carboxyhemoglobin POC ABG HHb (Measured) ABG Methemoglobin Fabrice Test Na ABG Potassium 3.6 A-a O2 Difference 204.0 Respiratory Index 0.7 Hgb O2 Saturation Glucose 103 Lactate 2.5 H FiO2 75.0 Inspiratory BiPAP 12 Expiratory BiPAP 6 Crit Value Called To Dr quinteros Crit Value Called By Tomas freedman [facility] Crit Value Read Back Y Blood Gas Notified Time 1320 Sodium 129.0 L Potassium Chloride 97.0 L Carbon Dioxide Anion Gap BUN Creatinine Est GFR ( Amer) Est GFR (Non-Af Amer) Random Glucose Calcium Phosphorus Magnesium Total Bilirubin AST ALT Alkaline Phosphatase Total Creatine Kinase CK-MB (Mass) Troponin I NT-Pro-B Natriuret Pep 5230 H Total Protein Albumin Globulin Albumin/Globulin Ratio TSH 3rd Generation 4.81 H Arterial Blood Potassium 3.6 Assessment & Plan - Assessment and Plan (Free Text) Assessment: 77 year old F with MDS, recent PE (04/2017), CAD, Afib, brought to ICU for shortness of breath. Infectious Disease: Sepsis - Colitis Infectious Disease consult w/ Dr Hernandez CT chest/abd/pelvix without IV contrast - Extensive wall thickening of the rectum lobe and distal sigmoid colon; correlate for colitis and/or proctitis. Additionally evidence of cecal and the left colonic wall thickening suspicious for colitis. Procalcitonin HIGH Flagyl 500mg IV TID Vancomycin 250mg PO QID Fluconazole 200mg IV QD Cefepime 1g IV BID Cardio: CAD, Afib, Diastolic CHF Cardiology consult w/ Dr Sosa * recent cardiac cath revealed RCA with large thrombus in the distal RCA. No angioplasty baloon or stent is big enough to open the obstructing thrombus. A decision was made as per Dr Skinner recommendation to treat the patient medically with antiplatelet and anticoagulation. ProBNP - 5230 ECHO - Normal ECHO. LVSF normal. EF 60%. Venous dopplers LE - normal Pulm: Shortness of breath - COPD vs CHF? Pulm consult w/ Dr Joseph Ivan 3ml INH RQ6 Methylprednisolone 40mg IV Q4H PRN Lasix 20mg IV Once PRN GI: Positive stool occult GI consult w/ Dr Thurman * Since the EGD and colonoscopy were scheduled last week, Code Sepsis and Rapid Response have been called. I do not think she is stable for the GI workup at this time. 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 consult w/ Dr Raymundo Renal consult w/ Dr Tabor Neuro: Neurology consult w/ Sky Moncada PPx: Heparin 5000u SC TID Multivitamin <Marlon Tucker - Last Filed: 06/30/17 15:44> Meds - Medications Medications: Current Medications Acetaminophen (Tylenol 325mg Tab) 650 mg PO Q4 PRN PRN Reason: blood transfusion Last Admin: 06/30/17 15:26 Dose: 650 mg Albuterol/Ipratropium (Duoneb 3 Mg/0.5 Mg (3 Ml) Ud) 3 ml INH RQ6 [facility] Last Admin: 06/30/17 13:52 Dose: 3 ml Apixaban (Eliquis) 5 mg PO BID [facility] Last Admin: 06/24/17 11:18 Dose: 5 mg Aspirin (Aspirin Chewable) 81 mg PO DAILY [facility] Last Admin: 06/24/17 11:18 Dose: 81 mg Dicyclomine HCl (Bentyl) 10 mg PO BID [facility] Last Admin: 06/30/17 09:18 Dose: 10 mg Epoetin Woody (Procrit) 10,000 unit SC TTS [facility] Last Admin: 06/28/17 09:49 Dose: 10,000 unit Furosemide (Lasix) 20 mg IVP ONCE PRN PRN Reason: before transfusion Last Admin: 06/29/17 01:27 Dose: 20 mg Furosemide (Lasix) 20 mg PO BID [facility] Heparin Sodium (Porcine) (Heparin) 5,000 units SC Q8 [facility] Last Admin: 06/30/17 09:30 Dose: 5,000 units Metronidazole (Flagyl) 500 mg in 100 mls @ 100 mls/hr IVPB Q8 [facility] Last Admin: 06/30/17 06:01 Dose: 100 mls/hr Fluconazole (Diflucan Iv 200 Mg/100 Ml Ns) 100 mls @ 100 mls/hr IVPB DAILY [facility] Last Admin: 06/30/17 13:34 Dose: 100 mls/hr Cefepime HCl (Maxipime Iv 1 Gm Premix) 1 gm in 50 mls @ 100 mls/hr IVPB Q12H [facility] Last Admin: 06/30/17 13:25 Dose: 100 mls/hr Diltiazem HCl 125 mg/ Dextrose 125 mls @ 5 mls/hr IV .Q24H [facility]IND[facility]; 5 MG/HR PRN Reason: Protocol Losartan Potassium (Cozaar) 25 mg PO DAILY [facility] Last Admin: 06/28/17 10:02 Dose: Not Given Methimazole (Tapazole) 5 mg PO DAILY [facility] Last Admin: 06/30/17 09:18 Dose: 5 mg Methylprednisolone (Solu-Medrol) 40 mg IVP Q4 PRN PRN Reason: Other Last Admin: 06/29/17 01:26 Dose: 40 mg Metoprolol Succinate (Toprol Xl) 25 mg PO DAILY [facility] Last Admin: 06/24/17 11:19 Dose: 25 mg Multivitamins (Hexavitamin) 1 tab PO DAILY [facility] Last Admin: 06/30/17 09:18 Dose: 1 tab Vancomycin HCl (Vancocin (Oral Or Rectal Use)) 250 mg PO QID [facility] Last Admin: 06/30/17 13:25 Dose: 250 mg Results - Vital Signs Recent Vital Signs: Last Vital Signs Temp 102.3 F H 06/30/17 15:26 Pulse 125 H 06/30/17 14:04 Resp 22 06/30/17 13:20 BP 139/65 06/30/17 13:20 Pulse Ox 97 06/30/17 07:05 - Labs Result Diagrams: 06/30/17 03:52 06/30/17 03:52 Labs: Laboratory Results - last 24 hr 06/30/17 06/30/17 06/30/17 03:52 03:52 11:40 WBC 9.8 D RBC 3.81 Hgb 11.1 D Hct 32.6 L MCV 85.7 MCH 29.1 MCHC 33.9 RDW 16.1 H Plt Count 423 H MPV 10.2 Neut % (Auto) 86.3 H Lymph % (Auto) 11.0 L [place] % (Auto) 0.6 Eos % (Auto) 2.0 Baso % (Auto) 0.1 Neut # (Auto) 8.4 H Lymph # (Auto) 1.1 [place] # (Auto) 0.1 Eos # (Auto) 0.2 Baso # (Auto) 0.0 Neutrophils % (Manual) 70 Band Neutrophils % 8 H Lymphocytes % (Manual) 11 L Reactive Lymphs % 5 H Monocytes % (Manual) 2 Eosinophils % (Manual) 4 Platelet Estimate Normal Polychromasia Slight Poikilocytosis (manual Slight Anisocytosis (manual) Slight Puncture Site L/b pCO2 52 H pO2 14 L* HCO3 26.7 ABG pH 7.37 ABG Total CO2 31.7 H ABG O2 Saturation 30.4 L ABG Base Excess 4.0 H ABG Hemoglobin 9.8 L ABG Carboxyhemoglobin 0.7 POC ABG HHb (Measured) 68.4 H ABG Methemoglobin 1.0 Fabrice Test Pos ABG Potassium A-a O2 Difference 634.0 Respiratory Index 45.3 Hgb O2 Saturation 29.9 L Glucose Lactate FiO2 100.0 Inspiratory BiPAP 12 Expiratory BiPAP 6 Crit Value Called To Dr alfredo esparza Crit Value Called By Tomas freedman kindergarten prep teacher Crit Value Read Back Y Blood Gas Notified Time 1155 Sodium 126 L Potassium 4.2 Chloride 92 L Carbon Dioxide 25 Anion Gap 13 BUN 19 H Creatinine 0.5 L Est GFR ( Amer) > 60 Est GFR (Non-Af Amer) > 60 Random Glucose 114 H Calcium 8.1 L Phosphorus 2.8 Magnesium 1.8 Total Bilirubin 0.7 AST 18 ALT 30 Alkaline Phosphatase 79 Total Creatine Kinase < 20 L CK-MB (Mass) 0.39 Troponin I < 0.0120 NT-Pro-B Natriuret Pep Total Protein 6.1 L Albumin 2.6 L Globulin 3.5 Albumin/Globulin Ratio 0.8 L TSH 3rd Generation Arterial Blood Potassium 06/30/17 06/30/17 13:10 13:14 WBC RBC Hgb Hct MCV MCH MCHC RDW Plt Count MPV Neut % (Auto) Lymph % (Auto) [place] % (Auto) Eos % (Auto) Baso % (Auto) Neut # (Auto) Lymph # (Auto) [place] # (Auto) Eos # (Auto) Baso # (Auto) Neutrophils % (Manual) Band Neutrophils % Lymphocytes % (Manual) Reactive Lymphs % Monocytes % (Manual) Eosinophils % (Manual) Platelet Estimate Polychromasia Poikilocytosis (manual Anisocytosis (manual) Puncture Site Lb pCO2 31 L pO2 292 H HCO3 27.3 ABG pH 7.52 H ABG Total CO2 26.3 ABG O2 Saturation 99.6 H ABG Base Excess 3.0 ABG Hemoglobin ABG Carboxyhemoglobin POC ABG HHb (Measured) ABG Methemoglobin Fabrice Test Na ABG Potassium 3.6 A-a O2 Difference 204.0 Respiratory Index 0.7 Hgb O2 Saturation Glucose 103 Lactate 2.5 H FiO2 75.0 Inspiratory BiPAP 12 Expiratory BiPAP 6 Crit Value Called To Dr quinteros Crit Value Called By Tomas freedman [facility] Crit Value Read Back Y Blood Gas Notified Time 1320 Sodium 129.0 L Potassium Chloride 97.0 L Carbon Dioxide Anion Gap BUN Creatinine Est GFR ( Amer) Est GFR (Non-Af Amer) Random Glucose Calcium Phosphorus Magnesium Total Bilirubin AST ALT Alkaline Phosphatase Total Creatine Kinase CK-MB (Mass) Troponin I NT-Pro-B Natriuret Pep 5230 H Total Protein Albumin Globulin Albumin/Globulin Ratio TSH 3rd Generation 4.81 H Arterial Blood Potassium 3.6 Attending/Attestation - Attestation I have personally seen and examined this patient.: Yes I have fully participated in the care of the patient.: Yes I have reviewed all pertinent clinical information: Yes Notes (Text): 06/30/17 15:43 A patient with known atrial fibrillation. Rapid response was called her today. Tachycardia. On BiPAP. icu evaluation was called. Likely patient is not improving. Patient also known to have thyrotoxicosis. We'll get the TSH level. Admit the patient to the intensive care unit, Emilee locke. Will follow-up the patient
--- NOTE | 2017-06-30 15:08 | RAD ---
HISTORY: tachycardia COMPARISON: Comparison made with chest radiograph 06/30/2017 at 0432 hours. FINDINGS: LUNGS: Mild bibasilar atelectasis with small bilateral effusions. PLEURA: As above. No pneumothorax apparent. CARDIOVASCULAR: Normal. OSSEOUS STRUCTURES: No significant abnormalities. VISUALIZED UPPER ABDOMEN: Normal. OTHER FINDINGS: None. IMPRESSION: Mild bibasilar atelectasis with small bilateral effusions.
--- NOTE | 2017-06-30 15:35 | CP.PCM.PN ---
Subjective - Date & Time of Evaluation Date of Evaluation: 06/30/17 Time of Evaluation: 15:00 - Subjective Subjective: my stomach hurts Objective - Vital Signs/Intake and Output Vital Signs (last 24 hours): Temp Pulse Resp BP Pulse Ox 99.6 F 125 H 22 139/65 97 06/30/17 13:20 06/30/17 14:04 06/30/17 13:20 06/30/17 13:20 06/30/17 07:05 Intake and Output: 06/30/17 06/30/17 06:59 18:59 Output Total 100 Balance -100 - Medications Medications: Current Medications Acetaminophen (Tylenol 325mg Tab) 650 mg PO Q4 PRN PRN Reason: blood transfusion Last Admin: 06/30/17 03:04 Dose: 650 mg Albuterol/Ipratropium (Duoneb 3 Mg/0.5 Mg (3 Ml) Ud) 3 ml INH RQ6 [facility] Last Admin: 06/30/17 13:52 Dose: 3 ml Apixaban (Eliquis) 5 mg PO BID [facility] Last Admin: 06/24/17 11:18 Dose: 5 mg Aspirin (Aspirin Chewable) 81 mg PO DAILY [facility] Last Admin: 06/24/17 11:18 Dose: 81 mg Dicyclomine HCl (Bentyl) 10 mg PO BID [facility] Last Admin: 06/30/17 09:18 Dose: 10 mg Epoetin Woody (Procrit) 10,000 unit SC TTS [facility] Last Admin: 06/28/17 09:49 Dose: 10,000 unit Furosemide (Lasix) 20 mg IVP ONCE PRN PRN Reason: before transfusion Last Admin: 06/29/17 01:27 Dose: 20 mg Furosemide (Lasix) 20 mg PO BID [facility] Heparin Sodium (Porcine) (Heparin) 5,000 units SC Q8 [facility] Last Admin: 06/30/17 09:30 Dose: 5,000 units Metronidazole (Flagyl) 500 mg in 100 mls @ 100 mls/hr IVPB Q8 [facility] Last Admin: 06/30/17 06:01 Dose: 100 mls/hr Fluconazole (Diflucan Iv 200 Mg/100 Ml Ns) 100 mls @ 100 mls/hr IVPB DAILY [facility] Last Admin: 06/30/17 13:34 Dose: 100 mls/hr Cefepime HCl (Maxipime Iv 1 Gm Premix) 1 gm in 50 mls @ 100 mls/hr IVPB Q12H [facility] Last Admin: 06/30/17 13:25 Dose: 100 mls/hr Diltiazem HCl 125 mg/ Dextrose 125 mls @ 5 mls/hr IV .Q24H [facility]INDER; 5 MG/HR PRN Reason: Protocol Losartan Potassium (Cozaar) 25 mg PO DAILY [facility] Last Admin: 06/28/17 10:02 Dose: Not Given Methimazole (Tapazole) 5 mg PO DAILY [facility] Last Admin: 06/30/17 09:18 Dose: 5 mg Methylprednisolone (Solu-Medrol) 40 mg IVP Q4 PRN PRN Reason: Other Last Admin: 06/29/17 01:26 Dose: 40 mg Metoprolol Succinate (Toprol Xl) 25 mg PO DAILY [facility] Last Admin: 06/24/17 11:19 Dose: 25 mg Multivitamins (Hexavitamin) 1 tab PO DAILY [facility] Last Admin: 06/30/17 09:18 Dose: 1 tab Vancomycin HCl (Vancocin (Oral Or Rectal Use)) 250 mg PO QID [facility] Last Admin: 06/30/17 13:25 Dose: 250 mg - Labs Labs: 06/30/17 03:52 06/30/17 03:52 PT 18.2 SECONDS (9.7-12.2) H 06/27/17 11:09 INR 1.6 06/27/17 11:09 APTT 34 SECONDS (21-34) 06/15/17 13:26 - Constitutional Appears: Chronically Ill - Head Exam Head Exam: ATRAUMATIC, NORMAL INSPECTION, NORMOCEPHALIC - Eye Exam Eye Exam: EOMI, Normal appearance, PERRL Pupil Exam: NORMAL ACCOMODATION, PERRL - ENT Exam ENT Exam: Mucous Membranes Moist, Normal Exam - Neck Exam Neck Exam: Full ROM, Normal Inspection - Respiratory Exam Respiratory Exam: Decreased Breath Sounds Additional comments: tachypnea - Cardiovascular Exam Cardiovascular Exam: Tachycardia, REGULAR RHYTHM - GI/Abdominal Exam GI & Abdominal Exam: Distended, Guarding, Rigid - Rectal Exam Rectal Exam: Deferred - Extremities Exam Extremities Exam: Normal Inspection - Back Exam Back Exam: NORMAL INSPECTION - Neurological Exam Neurological Exam: Alert, Oriented x3 Neuro motor strength exam: Left Upper Extremity: 3, Right Upper Extremity: 3, Left Lower Extremity: 3, Right Lower Extremity: 3 - Psychiatric Exam Psychiatric exam: Normal Affect, Normal Mood - Skin Skin Exam: Pallor Assessment and Plan - Assessment and Plan (Free Text) Assessment: Palliative care progress note Patient seen and examined in bed alert orientated 3, looking very sick. Jaundice much decreased. Breath sounds diminished, shallow breathing, respiratory rate 30. Abdomen distended, hot to touch, patient reports pain. Mild edema to lower extremities. Urine dark. Poor appetite, nausea, perhaps frequently. Post paracentesis. Dr. Keenan Jacobson asked me today to revisit discussion about hospice care with the patient. These was discussed with the patient and his sister in the past. At that time sister said she wasn't able to bring him home to live with her, and agreed with displacement at the hospice house. I reviewed these discussion with the patient today. I offered information about the hospice. Patient agreed. Possibility of placing Pleur Ex before discharge discussed as well. Explained the purpose of Pleurx. Patient agreed. This was shared with SW and Medical team. Impression * Generalized weakness * Poor PO intakes due to abdominal pain * Abdominal pain secondary to liver cirrhosis, due to ascites * Lack of housing and family support Suggestions * Assist with ADLs, activity as tolerated * Offer pleasure food such as ice cream * Would consider Morphine 5 mg PO Q 4 he PRN pain * Pleur ex cath for ascites * Hospice placement Thank you very much for this interesting consult. patient will further be closly fallowed up by you. Advance care planing 50 min.
[2017-06-30] MEDS ORDERED: Sodium Chloride 0.9% 250 ML IV ONE (20:46)
[2017-07-01] MEDS: Cefepime IV 1 gm in Dextrose 1 GM/50 ML BAG IVPB SCH ×2 (00:08→11:30)
[2017-07-01] MEDS: Albuterol-Ipratrop 3 mg / 0.5 (3 ml) UD INH SCH ×4 (01:43→21:03)
--- NOTE | 2017-07-01 04:11 | CON ---
DATE: ENDOCRINOLOGY CONSULT LOCATION: Room 551. HISTORY OF PRESENT ILLNESS: This is a 77-year-old female with a known history of significant cardiac vasculopathy presenting here with congestive heart failure and supervening atrial fibrillation with rapid ventricular response and is now being referred for possible adrenal insufficiency as noted. PAST MEDICAL HISTORY: History of hyperthyroidism, currently on Tapazole given as 5 mg daily as ordered, history of hypertensive cardiovascular disease, dyslipidemia, history of congestive heart failure with concomitant coronary artery disease. She also has chronic atrial fibrillation, previous pulmonary embolism, currently on oral anticoagulation therapy. She presented here with mild anemia, most likely related to GI bleeding as noted thereof. She has received multiple blood transfusions as given and has been given stat p.r.n. doses of Solu-Medrol 40 mg prior to each blood transfusion as given. History of supervening C. difficile colitis as noted. She also has a known history of myelodysplastic syndrome with chronic anemia and leukopenia, history of recent hyponatremia, most likely related to diuretic therapy, Lasix given twice a day as noted, history of recent rapid response in the floor because of sudden tachycardia, and hypotension as noted. There is also a prior pacemaker insertion some years ago as noted. FAMILY HISTORY: Positive for hypertension and heart disease. SOCIAL HISTORY: The patient has a supportive family. No known substance use. REVIEW OF SYSTEMS: As mentioned above, admits to generalized body weakness with episodic bouts of dizziness and lightheadedness, worse on the day of admission, also admits to generalized body weakness with suboptimal energy level, and increasing somnolence and lethargy. No chest pain or palpitations but admits to progressive shortness of breath initially on exertion and then at rest with paroxysmal nocturnal dyspnea, worse on the last few days prior to admission. Also admits to nausea, dyspepsia, and variable oral intake with episode of constipation; also admits to lower extremity paresthesias, especially nocturnally. PHYSICAL EXAMINATION: GENERAL: This is an average-built female in no apparent distress. VITAL SIGNS: Blood pressure of 110/70, but initially dropped down to 80/60, pulse of 120 beats per minute and irregular, temperature 99, respirations 20, height is 5 feet 2, weight is 124 pounds. HEENT: Head is normocephalic. Eyes anicteric with pale conjunctivae. Funduscopy is not possible at this time. Ears, nose and throat, otherwise, normal. NECK: Supple. Thyroid gland is normal in size. No carotid bruits or cervical adenopathy. CARDIOPULMONARY: Some adynamic precordium. S1 and S2 is rapid and irregular. LUNGS: Shows scattered rhonchi. ABDOMEN: Flat and soft with positive bowel sounds. EXTREMITIES: No peripheral edema. Pulses are +2 bilaterally. ASSESSMENT: This is a 77-year-old female presenting here with congestive heart failure on the background of coronary artery disease and cardiac tachyarrhythmias with a pacemaker in place and suddenly today had a rapid response with sudden tachycardia and hypotension and the possibility of adrenal insufficiency was brought into consideration at this time. She, however, has been receiving stat bolus doses of Solu-Medrol as prophylaxis prior to each blood transfusion as noted. Moreover, her biochemical indices showing hyponatremia which is probably diuretic induced and without the possibility of syndrome of inappropriate antidiuretic hormone secretion, are not consistent with hypoadrenalism. We just find persistent hyperkalemia as noted thereof. Her hyponatremia is most likely diuretic induced from the high dose diuretic therapy given for management of congestive heart failure. She also remains clinically euthyroid with recent history of hyperthyroidism, most likely related to autoimmune thyroiditis. PLAN: Plan of management, we will obtain thyroid hormonal profile with the total and free T4, and TSH tomorrow morning, and we will adjust the Tapazole dose accordingly. Moreover, we will also obtain a stat serum cortisol and ACTH level to confirm and/or indicate the presence of underlying hypoadrenalism as noted, although quite unlikely as mentioned. We will obtain serial chemistries and supplement accordingly as needed. We will follow. Marely Raymundo MD
[2017-07-01] MEDS: metroNIDAZOLE IV 500 mg/100 ml 500 MG/100 ML BAG IVPB SCH ×3 (05:50→21:39)
[2017-07-01] MEDS ORDERED: Digoxin 500 mcg/2ml (0.5 mg/2ml) Inj IVP ONE (06:32)
[2017-07-01 06:42] LABS: ALB/GLOB RATIO 0.7 (1.0-2.1); ALBUMIN 2.1 g/dL (3.5-5.0); ALT/SGPT 22 U/L (9-52); AST/SGOT 14 U/L (14-36); BLOOD UREA NITROGEN 18 mg/dL (7-17); CALCIUM 7.8 mg/dl (8.6-10.4); GFR AFRICAN-AMERICAN > 60; GFR NON-AFRICAN AMERICAN > 60
[2017-07-01 07:10] LABS: BASO % 0.1 % (0.0-2.0); EOS # 0.1 K/uL (0.0-0.7); EOS % 1.9 % (0.0-4.0); LYMPH # 0.5 K/uL (1.0-4.3); LYMPH % 6.8 % (20.0-40.0); MEAN CELL VOLUME 86.5 fL (81.0-99.0); MEAN CORPUSCULAR HEMOGLOBIN 28.7 pg (27.0-31.0); MEAN CORPUSCULAR HGB CONC 33.2 g/dL (33.0-37.0); MONO # 0.1 K/uL (0.0-0.8); MONO % 0.9 % (0.0-10.0); NEUT # 6.4 K/uL (1.8-7.0); NEUT % 90.3 % (50.0-75.0); NRBC % 0.2 % (0.0-2.0); RBC 2.97 Mil/uL (3.80-5.20); RED CELL DISTRIBUTION WIDTH 15.7 % (11.5-14.5); WHITE BLOOD COUNT 7.1 K/uL (4.8-10.8)
--- NOTE | 2017-07-01 07:10 | PN ---
DATE: 06/30/2017 FOLLOWUP RENAL CONSULTATION LOCATION: Room 551 REQUESTED BY: Deion Marie MD REASON FOR FOLLOWUP: Hyponatremia. HISTORY OF PRESENT ILLNESS: Mrs. Espino is a 77-year-old elderly, very pleasant [place] female with a history of longstanding hypertension, myelodysplastic syndrome, anemia, CHF, AFib, pulmonary embolism, status post cardiac cath consistent with questionable thrombus in the right RCA, on anticoagulation, who was admitted initially with shortness of breath and found to have low serum sodium and subsequently, her hospital course complicated by C. diff colitis and hypotension and fever, started on cefepime and also Diflucan in addition to Flagyl and vancomycin. The patient is complaining of tachycardia and shortness of breath this morning. 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 The patient is being transferred to ICU for further management. The patient is slightly tachypneic and also tachycardic. PHYSICAL EXAMINATION: VITAL SIGNS: As follows. Her blood pressure is 137/95, pulse 160, respirations 24, temperature 98.7, saturation 90%. Height 5.2 inches, weight is 124 pounds. GENERAL: Mrs. Espino is a 77-year-old elderly female, moderately built, moderately nourished, not in distress. HEENT: Pupils normal and reactive to light and accommodation. Conjunctivae pink. Sclerae anicteric. Tongue is moist. Trachea is midline. LUNGS: Symmetric on both sides. Bilateral breath sounds present. Occasional basal crackles present. CVS: [place] at the fifth intercostal space, midclavicular line. S1 and S2 audible. Tachycardic. Irregularly irregular. ABDOMEN: Normal in appearance, soft, tympanic. No guarding. No hepatosplenomegaly. 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 Nonfocal neuro examination. Cranial nerves II through XII grossly intact. Sensory and motor system is within normal limits. EXTREMITIES: No cyanosis, no clubbing. The patient has a 2+ edema in both lower extremities. MEDICATIONS: Aspirin 81 mg on hold and dicyclomine (Bentyl) 10 mg p.o. b.i.d., losartan on hold and Diflucan 200 mg IV daily and DuoNeb inhaler, Eliquis 5 mg p.o. b.i.d. on hold, Flagyl 500 mg q.8 h., subcu heparin 5000 q.8 h., multivitamin 1 tablet daily, Lasix 20 mg p.o. b.i.d., cefepime 1 g q.12 h., Procrit 10,000 units three times a week, Solu-Medrol 40 mg IV q.4 h. p.r.n., Tapazole 5 mg p.o. daily, metoprolol 25 mg p.o. daily, Tylenol, and vancomycin 250 mg p.o. 4 times a day. LABORATORY DATA: Includes as follows: As of 06/30/2017, WBC 9.8, hemoglobin 11.1, hematocrit is 32.6, platelets 423. ABG, pH 7.37 and pCO2 of 52 and pO2 of 14, bicarb 26.7, saturation is 30.4. A repeat ABG, pH 7.52, a pCO2 of 31, pO2 of 292, bicarb 27.3, saturation 99.6. Sodium is 126, potassium 4.2, chloride 92, CO2 of 25, BUN 19, creatinine 0.5, glucose 114, calcium 8.1, phosphorus 2.8, magnesium 1.8. Total bili 0.70, AST 18, ALT 30, alkaline phosphatase 79 and CPK less than 20, CK-MB 0.39 and troponin 0.012 and proBNP 5230 and total protein 6.1, albumin is 2.6 and TSH is 4.81. DIAGNOSTIC DATA: Chest x-ray, mild bibasilar atelectasis with small bilateral effusions. IMPRESSION: In summary, Mrs. Espino is a 77-year-old elderly [place] female with history of hypertension, myelodysplastic syndrome, anemia, congestive heart failure, coronary artery disease, atrial fibrillation, pulmonary embolism, status post cardiac cath consistent with questionable thrombus in the distal right coronary artery, hyponatremia, and status post Clostridium difficile colitis and also fever, CT scan consistent with proctocolitis and now with shortness of breath and tachycardia with atrial fibrillation with rapid ventricular response. 1. Hyponatremia. Cannot rule out syndrome of inappropriate antidiuretic hormone secretion versus secondary to thyroid disorder. The patient received one dose of tolvaptan 15 mg and her serum sodium slightly improved this morning. 2. Atrial fibrillation with rapid ventricular response. 3. Mild congestive heart failure. 4. Proctocolitis secondary to Clostridium difficile colitis. PLAN: The patient is being transferred to ICU for further management of AFib with rapid ventricular response. Overall prognosis is guarded. We will follow with you. Thank you for allowing me to participate in your patient's care. Rehan Dos Santos MD <
[2017-07-01 07:19] LABS: HEMOGLOBIN 8.5 g/dL (11.0-16.0); PLATELET COUNT 206 K/uL (130-400)
[2017-07-01 08:46] LABS: BANDS 23 % (0-2); EOSINOPHIL 2 % (0-4); LYMPHOCYTE 11 % (20-40); METAMYELOCYTE 1 % (0-0); MONOCYTE 2 % (0-10); MYELOCYTE 1 % (0-0); NEUTROPHIL 57 % (50-75); NUCLEATED RED BLOOD CELL 1 % (0-0); REACTIVE LYMPHOCYTES 3 % (0-0); TOTAL CELLS COUNTED 100
[2017-07-01 08:47] LABS: ANISOCYTOSIS SLIGHT; PLATELET ESTIMATE NORMAL (NORMAL)
[2017-07-01 08:57] LABS: BURR CELLS SLIGHT; HYPOCHROMIC SLIGHT; POIKILOCYTOSIS MODERATE; SCHISTOCYTES SLIGHT; TARGET CELLS SLIGHT
[2017-07-01 08:58] LABS: OVALOCYTES SLIGHT
--- NOTE | 2017-07-01 09:10 | PN ---
FOLLOWUP RENAL CONSULTATION DATE: 06/28/2017 The patient is located in room 551, bed-B. REQUESTED BY: Deion Marie MD REASON FOR FOLLOWUP: Hyponatremia status post prerenal azotemia. SUBJECTIVE: Mrs. Espino is a 77-year-old elderly very pleasant Swazi female with a history of longstanding hypertension, myelodysplastic syndrome, severe anemia, AFib, CHF, status post cardiac cath consistent with questionable thrombosis in the distal RCA, on anticoagulation. He was found to have hyponatremia and shortness of breath and initially the patient was given tolvaptan one dose and responded very well. The patient was also found to have a severe anemia and also fever with bandemia, started on Tamiflu can and cefepime. The patient is feeling better today and bowel room and x1 only. No chest pain. No palpitation. No fever. PHYSICAL EXAMINATION: VITAL SIGNS: As follows; blood pressure 112/76, pulse 77, respirations 20, temperature 97.3 and saturation 100%. Height 5 feet 2 inches and weight is 124 pounds. GENERAL: Mrs. Espino is a 77-year-old elderly female, moderately build, moderate nourished, not in acute distress. HEENT: Pupils normal, reactive to light and accommodation. Conjunctivae pink. Sclerae anicteric. Tongue is moist and trachea is midline. LUNGS: Symmetry on both sides. Bilateral breath sounds present. Bilateral basal crackles present. CVS: [place] at the fifth intercostal space, midclavicular line. S1 and S2 audible. No murmur or gallop. ABDOMEN: Normal in appearance, soft, tympanic. No guarding. No rigidity. No splenomegaly. 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 Nonfocal neuro examination. Cranial nerves II through XII grossly intact. Sensory motor system is within normal limits. EXTREMITIES: No cyanosis, no clubbing. The patient has a 1+ edema in both lower extremities. CURRENT MEDICATIONS: Include as follows; aspirin on hold and Bentyl 10 mg p.o. b.i.d., 25 mg p.o. daily, Diflucan 200 mg IV piggyback daily, Eliquis on hold, Flagyl 500 mg IV piggyback q.8 hours, multivitamin 1 tablet daily, Lasix 20 mg IV push x1 dose this morning, cefepime 1 g q.12 hours, Procrit 10,000 units subcu three times a week, Tapazole 5 mg p.o. daily, metoprolol on hold, Tylenol 650 mg p.o. q.4 hours p.r.n. and vancomycin 250 mg p.o. q.i.d. LABORATORY DATA: Include as follows; as of 06/28/2017, WBC 4.5, hemoglobin 7.6, hematocrit is 22.7, platelets 385 and neutrophils 67, bands , lymphocytes 9 and monocytes 4. Sodium 127, potassium is 4.0, chloride 96, CO2 of 25, BUN is 13, creatinine 0.4, glucose 192 and calcium 7.7. Total bili 0.4, AST 17, ALT 23, alkaline phosphatase 68, total protein 5.1 and albumin is 2.1. Stool for C. diff toxin is negative as of 06/27/2017. ASSESSMENT: In summary, Mrs. Espino is a 77-year-old elderly [place] female with history of multiple medical problems including hypertension, myelodysplastic syndrome, severe anemia multiple transfusions, coronary artery disease, congestive heart failure, atrial fibrillation status post cardiac cath consistent with possible thrombus in the distal RCA on anticoagulation with low H and H and the patient was febrile with negative cultures so far and started on Diflucan and cefepime and also the patient is on Flagyl and vancomycin for Clostridium difficile colitis. 1. Hyponatremia, rule out secondary to thyroid disorder, rule out syndrome of inappropriate secretion of antidiuretic hormone. 2. Congestive heart failure. 3. Myeloblastic and myelodysplastic syndrome. 4. Anemia. 5. Proctocolitis most likely secondary to Clostridium difficile colitis. Continue vancomycin, Flagyl and also continue Diflucan and cefepime as per Infectious Disease recommendations. Restrict fluids to 1 liter per day and encourage high-protein diet. We will add Pro-Stat 30 mL p.o. b.i.d. and also Nepro one can p.o. daily. Will also liberalize salt in the diet. Advise the patient's niece at bedside regarding the diet. We will follow with you. Thank you for allowing me to participate in your patient's care. Rehan Dos Santos MD [facility] # [id number]
--- NOTE | 2017-07-01 09:17 | CP.PCM.PN ---
Subjective - Date & Time of Evaluation Date of Evaluation: 07/01/17 Time of Evaluation: 08:50 - Subjective Subjective: Pt has episodes of tachy & SOB. Transfer to ICU. States get sold on the inside and felt palpitation/ sob. Denies CP, (+) dry cough, no more diarrhea, no dysuria Objective - Vital Signs/Intake and Output Vital Signs (last 24 hours): Temp Pulse Resp BP Pulse Ox 97.5 F L 142 H 19 108/66 99 07/01/17 04:00 07/01/17 09:00 07/01/17 09:00 07/01/17 08:50 07/01/17 09:00 Intake and Output: 07/01/17 07/01/17 06:59 18:59 Intake Total 940 240 Output Total 1100 Balance 940 -860 - Medications Medications: Current Medications Acetaminophen (Tylenol 325mg Tab) 650 mg PO Q4 PRN PRN Reason: blood transfusion Last Admin: 06/30/17 15:26 Dose: 650 mg Albuterol/Ipratropium (Duoneb 3 Mg/0.5 Mg (3 Ml) Ud) 3 ml INH RQ6 [facility] Last Admin: 07/01/17 07:29 Dose: 3 ml Apixaban (Eliquis) 5 mg PO BID [facility] Last Admin: 06/24/17 11:18 Dose: 5 mg Aspirin (Aspirin Chewable) 81 mg PO DAILY [facility] Last Admin: 06/24/17 11:18 Dose: 81 mg Dicyclomine HCl (Bentyl) 10 mg PO BID [facility] Last Admin: 06/30/17 21:28 Dose: 10 mg Furosemide (Lasix) 20 mg IVP ONCE PRN PRN Reason: before transfusion Last Admin: 06/29/17 01:27 Dose: 20 mg Furosemide (Lasix) 20 mg PO BID [facility] Last Admin: 06/30/17 18:08 Dose: Not Given Heparin Sodium (Porcine) (Heparin) 5,000 units SC Q8H [facility] Last Admin: 07/01/17 01:50 Dose: 5,000 units Metronidazole (Flagyl) 500 mg in 100 mls @ 100 mls/hr IVPB Q8 [facility] Last Admin: 07/01/17 05:50 Dose: 100 mls/hr Fluconazole (Diflucan Iv 200 Mg/100 Ml Ns) 100 mls @ 100 mls/hr IVPB DAILY [facility] Last Admin: 06/30/17 13:34 Dose: 100 mls/hr Cefepime HCl (Maxipime Iv 1 Gm Premix) 1 gm in 50 mls @ 100 mls/hr IVPB Q12H [facility] Last Admin: 07/01/17 00:08 Dose: 100 mls/hr Losartan Potassium (Cozaar) 25 mg PO DAILY [facility] Last Admin: 06/28/17 10:02 Dose: Not Given Methimazole (Tapazole) 5 mg PO DAILY [facility] Last Admin: 06/30/17 09:18 Dose: 5 mg Methylprednisolone (Solu-Medrol) 40 mg IVP Q4 PRN PRN Reason: Other Last Admin: 06/29/17 01:26 Dose: 40 mg Metoprolol Succinate (Toprol Xl) 25 mg PO DAILY [facility] Last Admin: 06/24/17 11:19 Dose: 25 mg Multivitamins (Hexavitamin) 1 tab PO DAILY [facility] Last Admin: 06/30/17 09:18 Dose: 1 tab Potassium Chloride (Potassium Chloride Oral Soln) 20 meq PO BID [facility] Stop: 07/01/17 18:01 Vancomycin HCl (Vancocin (Oral Or Rectal Use)) 250 mg PO QID [facility] Last Admin: 06/30/17 21:18 Dose: 250 mg - Labs Labs: 07/01/17 06:17 07/01/17 06:16 PT 18.2 SECONDS (9.7-12.2) H 06/27/17 11:09 INR 1.6 06/27/17 11:09 APTT 34 SECONDS (21-34) 06/15/17 13:26 - Constitutional Appears: No Acute Distress - Eye Exam Eye Exam: Normal appearance - ENT Exam ENT Exam: Mucous Membranes Moist - Neck Exam Neck Exam: Full ROM. absent: Lymphadenopathy, Thyromegaly - Respiratory Exam Respiratory Exam: Decreased Breath Sounds, Rales, Rhonchi. absent: Wheezes - Cardiovascular Exam Cardiovascular Exam: Irregular Rhythm, +S1, +S2, Murmur. absent: Gallop, JVD - GI/Abdominal Exam GI & Abdominal Exam: Soft. absent: Tenderness - Extremities Exam Extremities Exam: Full ROM, Normal Capillary Refill, Pedal Edema. absent: Calf Tenderness, Joint Swelling Assessment and Plan - Assessment and Plan (Free Text) Assessment: At fib w/ rapid vent response; CAD MDS, Hyperthyroidism, htn, Recent PE Digitalize patient Cont meds
[2017-07-01] MEDS: Fluconazole IV 200mg/100 ml NS 100 ML IVPB SCH (09:41)
[2017-07-01] MEDS: Multiple Vitamins Tab PO SCH (09:42)
[2017-07-01] MEDS: methIMAzole 5 MG TAB PO SCH (09:43)
[2017-07-01] MEDS: Vancomycin 125 MG/5 ML SOLN (ORAL/RECTAL) PO SCH ×4 (09:44→21:40)
[2017-07-01] MEDS: Digoxin 500 mcg/2ml (0.5 mg/2ml) Inj IVP SCH ×2 (09:45→21:40)
[2017-07-01] MEDS ORDERED: Potassium Chloride 20 mEq/15 ml LIQ UD PO SCH (10:00)
--- NOTE | 2017-07-01 10:17 | CON ---
DATE: 06/27/2017 FOLLOWUP RENAL CONSULTATION LOCATION: The patient is located in room 551, bed B. REQUESTED BY: Deion Marie MD REASON FOR FOLLOWUP: Hyponatremia and prerenal azotemia. SUBJECTIVE: Mrs. Espino is a 77-year-old elderly [place]oth[place] female with a past medical history significant for longstanding hypertension, myelodysplastic syndrome, anemia, CHF, AFib, pulmonary embolism, status post C. diff colitis and hyponatremia, was [facility] and found to have questionable embolus in the distal RCA, was admitted with shortness of breath few hours after discharged from [facility]. The patient is not in acute distress, complex fever on and off for the last few days. All the cultures are negative. The patient is not in acute distress. Denies any chest pain or palpitation. Denies any fever at this time. Does complain of swelling of the legs. PHYSICAL EXAMINATION: VITAL SIGNS: As follows; blood pressure 102/65, pulse 95, respirations 20, temperature 97.8, and saturation 99%. Height 5 feet 2 inches and weight is 124 pounds. GENERAL: Mrs. Espino is a 77-year-old elderly female, moderately built, moderately nourished, not in acute distress. HEENT: Pupils are normal and reactive to light and accommodation. Conjunctivae slightly pale. Sclerae anicteric. Tongue is moist. Trachea is midline. LUNGS: Symmetry on both sides. Bilateral breath sounds present. Bilateral basilar crackles present. CARDIOVASCULAR SYSTEM: [place] at the fifth intercostal space. Midclavicular line. S1, S2 audible. No murmur. No gallop. ABDOMEN: Normal in appearance. Soft, tympanic. No guarding. No rigidity. No hepatosplenomegaly. CENTRAL NERVOUS SYSTEM: The patient is alert, awake, and oriented x2-3. Sensory and motor system is grossly within normal limits. EXTREMITIES: No cyanosis. No clubbing. The patient had a 1+ edema in both lower extremities. CURRENT MEDICATIONS: Her current medications include as follows; aspirin 81 mg daily on hold, Bentyl 10 mg p.o. b.i.d., losartan is on hold, fluconazole 200 mg IV daily, Eliquis on hold, Flagyl 500 mg IV q. 8 hours, multivitamin 1 tablet daily, KCl 40 mEq p.o. x1 dose, Lasix 20 mg p.o. b.i.d. on hold, cefepime 1 g IV piggyback q. 12 hours, Epogen 10,000 units 3 times a week, methylprednisolone 40 mg IV q. 12 hours, Tapazole 5 mg p.o. daily, metoprolol 25 mg daily on hold, and vancomycin 250 mg p.o. four times a day. LABORATORY DATA: Her laboratory data include as follows; as of 06/27/2017 WBC 10.2, hemoglobin 8.3, hematocrit is 24.6, platelets 439, neutrophils 47, bands 37, and lymph is 7, reactive lymph 1 and monos 5, eosinophils 1, and myelocytes 2. PT is 18.2, INR is 1.6. ABG; pH 7.50, pCO2 of 28, pO2 of 162, bicarb is 24.8, and saturation 99.7. Other laboratory data sodium 129, potassium 3.3, chloride 95, CO2 of 28, BUN is 12, and creatinine 0.4, glucose is 145, calcium 7.4, total bili 0.8, AST is 104, ALT 32, alkaline phosphatase 72, total protein 5.3, and albumin is 2.2. Procalcitonin 0.72, arterial blood potassium is 3.1. Other reports, urinalysis renee color, pH 5.0, specific gravity 1.032, protein 1+, glucose normal, ketones negative, blood negative, nitrites negative, bilirubin is negative, urobilinogen is 2.0, leukocyte esterase 1+, wbc 8, rbc 6, epithelial cells 8, bacteria is rare. Stool C. diff toxin is again negative. Influenza A and B antibodies negative. Other reports, CT of the abdomen and Plavix as of 06/25/2017 examination limited by the absence of oral or IV contrast, extensive wall thickening of the rectum and distal sigmoid colon correlate for the colitis and proctitis, additionally evidence of cecal and left colonic wall thickening suspicious for colitis. Appendix is not identified on the study and suspect tiny gallstone in the gallbladder, right upper quadrant ultrasound may be considered if indicated of local gallbladder wall thickening versus soft tissue density along the gallbladder fundus re-identified. Differential diagnosis as on 6 mm left upper lobe pulmonary nodule. For low risk, the patient recommended to followup the CT chest at 6 to 12 months. If unchanged considered an additional followup of CT scan in 18 to 24 months. For high risk, the patient initial followup chest CT scan in 6 to 12 months and unchanged in 8 to 12 months. A 13 mm prevascular lymph node, short access, additional prominent subcentimeter mediastinal and prevascular lymph node, nonspecific subcentimeter, axillar lymph node nonspecific. Chest x-ray as of 06/27/2017; impression, mild pulmonary venous congestion, cardiomegaly, small effusions. ASSESSMENT: In summary, Mrs. Espino is a 77-year-old elderly female with a history of hypertension, myelodysplastic syndrome, congestive heart failure, atrial fibrillation, pulmonary embolism, anemia, history of clostridium difficile colitis, CT scan consistent with proctitis and colitis with low serum sodium and fever. 1. Hyponatremia most likely secondary to thyroid disorder and hyperthyroidism, cannot rule out syndrome of inappropriate antidiuretic hormone secretion. 2. Proctitis, colitis secondary to clostridium difficile. 3. Anemia secondary to myelodysplastic syndrome. 4. Prerenal azotemia. Renal functioning is improving nicely. PLAN: Continue antibiotics as per ID recommendation of vancomycin and Flagyl and consider to discontinue cefepime if possible. Follow up with ID recommendation. Continue Epogen three times a week. We will follow with you. Thank you for allowing me to participate in your patient's care. Overall prognosis is guarded. Rehan Dos Santos MD
[2017-07-01] MEDS: Potassium Chloride 20 mEq ER Tab PO SCH ×2 (11:28→17:10)
--- NOTE | 2017-07-01 11:37 | CP.PCM.PN ---
Subjective - Date & Time of Evaluation Date of Evaluation: 07/01/17 Time of Evaluation: 08:00 - Subjective Subjective: admitted to ICU rapid afib recent venous doppler neg bandemia noted consider CT angio chest Dr Sosa to follow- has severe CAD , myelodysplasia poor prognosis Objective - Vital Signs/Intake and Output Vital Signs (last 24 hours): Temp Pulse Resp BP Pulse Ox 100.5 F H 142 H 19 108/66 99 07/01/17 08:00 07/01/17 09:00 07/01/17 09:00 07/01/17 09:42 07/01/17 09:00 Intake and Output: 07/01/17 07/01/17 06:59 18:59 Intake Total 940 240 Output Total 1100 Balance 940 -860 - Medications Medications: Current Medications Acetaminophen (Tylenol 325mg Tab) 650 mg PO Q4 PRN PRN Reason: blood transfusion Last Admin: 07/01/17 09:55 Dose: 650 mg Albuterol/Ipratropium (Duoneb 3 Mg/0.5 Mg (3 Ml) Ud) 3 ml INH RQ6 [facility] Last Admin: 07/01/17 07:29 Dose: 3 ml Apixaban (Eliquis) 5 mg PO BID [facility] Last Admin: 06/24/17 11:18 Dose: 5 mg Aspirin (Aspirin Chewable) 81 mg PO DAILY [facility] Last Admin: 06/24/17 11:18 Dose: 81 mg Dicyclomine HCl (Bentyl) 10 mg PO BID [facility] Last Admin: 07/01/17 09:41 Dose: 10 mg Digoxin (Lanoxin) 0.25 mg IVP Q12 [facility] Stop: 07/03/17 23:59 Last Admin: 07/01/17 09:45 Dose: 0.25 mg Diltiazem HCl (Cardizem) 30 mg PO QID [facility] Furosemide (Lasix) 20 mg IVP ONCE PRN PRN Reason: before transfusion Last Admin: 06/29/17 01:27 Dose: 20 mg Furosemide (Lasix) 20 mg PO BID [facility] Last Admin: 07/01/17 09:42 Dose: 20 mg Heparin Sodium (Porcine) (Heparin) 5,000 units SC Q8H [facility] Last Admin: 07/01/17 09:42 Dose: 5,000 units Metronidazole (Flagyl) 500 mg in 100 mls @ 100 mls/hr IVPB Q8 [facility] Last Admin: 07/01/17 05:50 Dose: 100 mls/hr Fluconazole (Diflucan Iv 200 Mg/100 Ml Ns) 100 mls @ 100 mls/hr IVPB DAILY [facility] Last Admin: 07/01/17 09:41 Dose: 100 mls/hr Cefepime HCl (Maxipime Iv 1 Gm Premix) 1 gm in 50 mls @ 100 mls/hr IVPB Q12H [facility] Last Admin: 07/01/17 00:08 Dose: 100 mls/hr Losartan Potassium (Cozaar) 25 mg PO DAILY [facility] Last Admin: 06/28/17 10:02 Dose: Not Given Methimazole (Tapazole) 5 mg PO DAILY [facility] Last Admin: 07/01/17 09:43 Dose: 5 mg Methylprednisolone (Solu-Medrol) 40 mg IVP Q4 PRN PRN Reason: Other Last Admin: 06/29/17 01:26 Dose: 40 mg Metoprolol Succinate (Toprol Xl) 25 mg PO DAILY [facility] Last Admin: 06/24/17 11:19 Dose: 25 mg Multivitamins (Hexavitamin) 1 tab PO DAILY [facility] Last Admin: 07/01/17 09:42 Dose: 1 tab Potassium Chloride (K-Dur 20 Meq Er Tab) 20 meq PO BID [facility] Stop: 07/01/17 18:01 Vancomycin HCl (Vancocin (Oral Or Rectal Use)) 250 mg PO QID [facility] Last Admin: 07/01/17 09:44 Dose: 250 mg - Labs Labs: 07/01/17 06:17 07/01/17 06:16 PT 18.2 SECONDS (9.7-12.2) H 06/27/17 11:09 INR 1.6 06/27/17 11:09 APTT 34 SECONDS (21-34) 06/15/17 13:26 - Constitutional Appears: Non-toxic, Chronically Ill - Head Exam Head Exam: NORMOCEPHALIC - Eye Exam Eye Exam: PERRL - ENT Exam ENT Exam: Mucous Membranes Dry - Neck Exam Neck Exam: absent: Lymphadenopathy - Respiratory Exam Respiratory Exam: Decreased Breath Sounds - Cardiovascular Exam Cardiovascular Exam: REGULAR RHYTHM - GI/Abdominal Exam GI & Abdominal Exam: Distended, Soft - Rectal Exam Rectal Exam: Deferred - Exam Exam: NORMAL INSPECTION - Extremities Exam Extremities Exam: absent: Pedal Edema - Back Exam Back Exam: absent: CVA tenderness (L), CVA tenderness (R) - Neurological Exam Neurological Exam: Alert, Awake, CN II-XII Intact Assessment and Plan (1) CHF (congestive heart failure) Status: Acute (2) Rapid atrial fibrillation Status: Acute (3) CAD (coronary artery disease) Status: Acute (4) Cough Status: Acute (5) Dehydration Status: Acute (6) Hyponatremia Status: Acute (7) Lower respiratory infection Status: Acute (8) Myelodysplasia (myelodysplastic syndrome) Status: Acute
--- NOTE | 2017-07-01 12:07 | CP.CCUPN ---
<Shlomo Reddy - Last Filed: 07/01/17 12:05> CCU Subjective - Physician Review Subjective (Free Text): Patient seen and examined. Appears drowsy. AAOx3. Denies chest pain, cough, diarrhea, dysuria. CCU Objective - Vital Signs / Intake & Output Vital Signs (Last 4 hours): Vital Signs Pulse Resp BP Pulse Ox 07/01/17 11:00 131 H 31 H 98 07/01/17 10:49 124 H 28 H 93/48 L 98 07/01/17 10:00 148 H 32 H 98 07/01/17 09:59 157 H 29 H 120/72 96 07/01/17 09:50 132 H 20 99 07/01/17 09:42 108/66 07/01/17 09:00 142 H 19 99 07/01/17 08:50 121 H 22 108/66 99 07/01/17 08:47 145 H 16 98 Intake and Output (Last 8hrs): Intake & Output 06/30/17 07/01/17 07/01/17 22:59 06:59 14:59 Intake Total 590 350 290 Output Total 1100 Balance 590 350 -810 Weight 147 lb 3.2 oz Intake: Intake, IV Amount 350 150 50 Left Hand 350 150 50 Oral 240 200 240 Output: Urine 1100 Urine, Voided 1100 Other: # Bowel Movements 1 - Medications Active Medications: Active Medications Generic Name Dose Route Start Last Admin Trade Name Freq PRN Reason Stop Dose Admin Acetaminophen 650 mg 06/28/17 13:35 07/01/17 09:55 Tylenol 325mg Tab PO 650 mg Q4 PRN Administration blood transfusion Albuterol/Ipratropium 3 ml 06/30/17 08:00 07/01/17 07:29 Duoneb 3 Mg/0.5 Mg (3 Ml) Ud INH 3 ml RQ6 VARINDER Administration Apixaban 5 mg 06/16/17 10:00 06/24/17 11:18 Eliquis PO 5 mg BID VARINDER Administration Aspirin 81 mg 06/16/17 10:00 06/24/17 11:18 Aspirin Chewable PO 81 mg DAILY VARINDER Administration Dicyclomine HCl 10 mg 06/21/17 10:00 07/01/17 09:41 Bentyl PO 10 mg BID VARINDER Administration Digoxin 0.25 mg 07/01/17 10:00 07/01/17 09:45 Lanoxin IVP 07/03/17 23:59 0.25 mg Q12 VARINDER Administration Diltiazem HCl 30 mg 07/01/17 10:00 07/01/17 11:29 Cardizem PO 30 mg QID VARINDER Administration Furosemide 20 mg 06/28/17 15:22 06/29/17 01:27 Lasix IVP 20 mg ONCE PRN Administration before transfusion Furosemide 20 mg 06/30/17 13:28 07/01/17 09:42 Lasix PO 20 mg BID VARINDER Administration Heparin Sodium (Porcine) 5,000 units 06/30/17 18:00 07/01/17 09:42 Heparin SC 5,000 units Q8H VARINDER Administration Metronidazole 500 mg in 100 mls @ 100 mls/hr 06/22/17 15:00 07/01/17 05:50 Flagyl IVPB 100 mls/hr Q8 VARINDER Administration Fluconazole 100 mls @ 100 mls/hr 06/25/17 16:00 07/01/17 09:41 Diflucan Iv 200 Mg/100 Ml Ns IVPB 100 mls/hr DAILY VARINDER Administration Cefepime HCl 1 gm in 50 mls @ 100 mls/hr 06/27/17 12:00 07/01/17 11:30 Maxipime Iv 1 Gm Premix IVPB 100 mls/hr Q12H VARINDER Administration Vancomycin HCl 1 gm/ Sodium 250 mls @ 166.7 mls/hr 07/01/17 12:02 Chloride IVPB 07/01/17 13:31 STAT STA Losartan Potassium 25 mg 06/17/17 21:33 06/28/17 10:02 Cozaar PO Not Given DAILY [facility] Methimazole 5 mg 06/16/17 10:00 07/01/17 09:43 Tapazole PO 5 mg DAILY VARINDER Administration Methylprednisolone 40 mg 06/28/17 13:38 06/29/17 01:26 Solu-Medrol IVP 40 mg Q4 PRN Administration Other Metoprolol Succinate 25 mg 06/23/17 10:00 06/24/17 11:19 Toprol Xl PO 25 mg DAILY VARINDER Administration Multivitamins 1 tab 06/16/17 10:00 07/01/17 09:42 Hexavitamin PO 1 tab DAILY VARINDER Administration Potassium Chloride 20 meq 07/01/17 10:00 07/01/17 11:28 K-Dur 20 Meq Er Tab PO 07/01/17 18:01 20 meq BID VARINDER Administration Vancomycin HCl 250 mg 06/19/17 10:00 07/01/17 09:44 Vancocin (Oral Or Rectal Use) PO 250 mg QID VARINDER Administration - Patient Studies Lab Studies: Microbiology Studies 06/26/17 10:27 - Final Blood Transfusion Bag - Final NO GROWTH AFTER 5 DAYS 06/27/17 10:52 Blood Culture - Preliminary Blood-Venous NO GROWTH AFTER 3 DAYS 06/27/17 10:52 Blood Culture - Preliminary Blood-Venous NO GROWTH AFTER 3 DAYS Lab Studies 07/01/17 07/01/17 07/01/17 Range/Units 06:17 06:16 06:16 WBC 7.1 (4.8-10.8) K/uL RBC 2.97 L (3.80-5.20) Mil/uL Hgb 8.5 L D (11.0-16.0) g/dL Hct 25.7 L (34.0-47.0) % MCV 86.5 (81.0-99.0) fL MCH 28.7 (27.0-31.0) pg MCHC 33.2 (33.0-37.0) g/dL RDW 15.7 H (11.5-14.5) % Plt Count 206 D (130-400) K/uL MPV 9.0 (7.2-11.7) fL Neut % (Auto) 90.3 H (50.0-75.0) % Lymph % (Auto) 6.8 L (20.0-40.0) % Blount % (Auto) 0.9 (0.0-10.0) % Eos % (Auto) 1.9 (0.0-4.0) % Baso % (Auto) 0.1 (0.0-2.0) % Neut # (Auto) 6.4 (1.8-7.0) K/uL Lymph # (Auto) 0.5 L (1.0-4.3) K/uL Blount # (Auto) 0.1 (0.0-0.8) K/uL Eos # (Auto) 0.1 (0.0-0.7) K/uL Baso # (Auto) 0.0 (0.0-0.2) K/uL Neutrophils % (Manual) 57 (50-75) % Band Neutrophils % 23 H* (0-2) % Lymphocytes % (Manual) 11 L (20-40) % Reactive Lymphs % 3 H (0-0) % Monocytes % (Manual) 2 (0-10) % Eosinophils % (Manual) 2 (0-4) % Metamyelocytes % 1 H (0-0) % Myelocytes % 1 H (0-0) % Nucleated RBC % 1 H (0-0) % Platelet Estimate Normal (NORMAL) Hypochromasia (manual) Slight Poikilocytosis (manual Moderate Anisocytosis (manual) Slight Target Cells Slight Ovalocytes Slight Carter Cells Slight Schistocytes Slight Puncture Site pCO2 (35-45) mm/Hg pO2 (80-100) mm/Hg HCO3 (21-28) mmol/L ABG pH (7.35-7.45) ABG Total CO2 (22-28) mmol/L ABG O2 Saturation (95-98) % ABG Base Excess (-2.0-3.0) mmol/L Fabrice Test ABG Potassium (3.6-5.2) mmol/L A-a O2 Difference mm/Hg Respiratory Index Sodium (132-148) mmol/l Chloride (98-107) mmol/L Glucose (65-105) mg/dl Lactate (0.7-2.1) mmol/L FiO2 % Inspiratory BiPAP Expiratory BiPAP Crit Value Called To Crit Value Called By Crit Value Read Back Blood Gas Notified Time Potassium (3.6-5.2) mmol/L Carbon Dioxide (22-30) mmol/L Anion Gap (10-20) BUN (7-17) mg/dL Creatinine (0.7-1.2) mg/dL Est GFR ( Amer) Est GFR (Non-Af Amer) Random Glucose (65-105) mg/dL Calcium (8.6-10.4) mg/dl Total Bilirubin (0.2-1.3) mg/dL AST (14-36) U/L ALT (9-52) U/L Alkaline Phosphatase (38-126) U/L NT-Pro-B Natriuret Pep (0-900) pg/mL Total Protein (6.3-8.3) g/dL Albumin (3.5-5.0) g/dL Globulin (2.2-3.9) gm/dL Albumin/Globulin Ratio (1.0-2.1) Free T4 0.91 (0.78-2.19) ng/dL Thyroxine (T4) (5.5-11.0) ug/dL TSH 3rd Generation (0.46-4.68) mIU/L Cortisol AM Sample 18.9 (4.46-22.7) ug/dL Arterial Blood Potassium (3.6-5.2) mmol/L Influenza Type A Ab (<1:8) titer Influenza Type B Ab (<1:8) titer 07/01/17 06/30/17 06/30/17 Range/Units 06:16 13:14 13:10 WBC (4.8-10.8) K/uL RBC (3.80-5.20) Mil/uL Hgb (11.0-16.0) g/dL Hct (34.0-47.0) % MCV (81.0-99.0) fL MCH (27.0-31.0) pg MCHC (33.0-37.0) g/dL RDW (11.5-14.5) % Plt Count (130-400) K/uL MPV (7.2-11.7) fL Neut % (Auto) (50.0-75.0) % Lymph % (Auto) (20.0-40.0) % Blount % (Auto) (0.0-10.0) % Eos % (Auto) (0.0-4.0) % Baso % (Auto) (0.0-2.0) % Neut # (Auto) (1.8-7.0) K/uL Lymph # (Auto) (1.0-4.3) K/uL Blount # (Auto) (0.0-0.8) K/uL Eos # (Auto) (0.0-0.7) K/uL Baso # (Auto) (0.0-0.2) K/uL Neutrophils % (Manual) (50-75) % Band Neutrophils % (0-2) % Lymphocytes % (Manual) (20-40) % Reactive Lymphs % (0-0) % Monocytes % (Manual) (0-10) % Eosinophils % (Manual) (0-4) % Metamyelocytes % (0-0) % Myelocytes % (0-0) % Nucleated RBC % (0-0) % Platelet Estimate (NORMAL) Hypochromasia (manual) Poikilocytosis (manual Anisocytosis (manual) Target Cells Ovalocytes Eli Cells Schistocytes Puncture Site Lb pCO2 31 L (35-45) mm/Hg pO2 292 H (80-100) mm/Hg HCO3 27.3 (21-28) mmol/L ABG pH 7.52 H (7.35-7.45) ABG Total CO2 26.3 (22-28) mmol/L ABG O2 Saturation 99.6 H (95-98) % ABG Base Excess 3.0 (-2.0-3.0) mmol/L Fabrice Test Na ABG Potassium 3.6 (3.6-5.2) mmol/L A-a O2 Difference 204.0 mm/Hg Respiratory Index 0.7 Sodium 127 L 129.0 L (132-148) mmol/l Chloride 92 L 97.0 L (98-107) mmol/L Glucose 103 (65-105) mg/dl Lactate 2.5 H (0.7-2.1) mmol/L FiO2 75.0 % Inspiratory BiPAP 12 Expiratory BiPAP 6 Crit Value Called To Dr quinteros Crit Value Called By Tomas freedman [facility] Crit Value Read Back Y Blood Gas Notified Time 1320 Potassium 3.1 L (3.6-5.2) mmol/L Carbon Dioxide 27 (22-30) mmol/L Anion Gap 11 (10-20) BUN 18 H (7-17) mg/dL Creatinine 0.6 L (0.7-1.2) mg/dL Est GFR ( Amer) > 60 Est GFR (Non-Af Amer) > 60 Random Glucose 96 (65-105) mg/dL Calcium 7.8 L (8.6-10.4) mg/dl Total Bilirubin 0.6 (0.2-1.3) mg/dL AST 14 D (14-36) U/L ALT 22 (9-52) U/L Alkaline Phosphatase 48 (38-126) U/L NT-Pro-B Natriuret Pep 5230 H (0-900) pg/mL Total Protein 4.8 L (6.3-8.3) g/dL Albumin 2.1 L (3.5-5.0) g/dL Globulin 2.8 (2.2-3.9) gm/dL Albumin/Globulin Ratio 0.7 L (1.0-2.1) Free T4 (0.78-2.19) ng/dL Thyroxine (T4) 5.00 L (5.5-11.0) ug/dL TSH 3rd Generation 3.52 4.81 H (0.46-4.68) mIU/L Cortisol AM Sample (4.46-22.7) ug/dL Arterial Blood Potassium 3.6 (3.6-5.2) mmol/L Influenza Type A Ab (<1:8) titer Influenza Type B Ab (<1:8) titer 06/27/17 Range/Units 13:00 WBC (4.8-10.8) K/uL RBC (3.80-5.20) Mil/uL Hgb (11.0-16.0) g/dL Hct (34.0-47.0) % MCV (81.0-99.0) fL MCH (27.0-31.0) pg MCHC (33.0-37.0) g/dL RDW (11.5-14.5) % Plt Count (130-400) K/uL MPV (7.2-11.7) fL Neut % (Auto) (50.0-75.0) % Lymph % (Auto) (20.0-40.0) % Blount % (Auto) (0.0-10.0) % Eos % (Auto) (0.0-4.0) % Baso % (Auto) (0.0-2.0) % Neut # (Auto) (1.8-7.0) K/uL Lymph # (Auto) (1.0-4.3) K/uL Blount # (Auto) (0.0-0.8) K/uL Eos # (Auto) (0.0-0.7) K/uL Baso # (Auto) (0.0-0.2) K/uL Neutrophils % (Manual) (50-75) % Band Neutrophils % (0-2) % Lymphocytes % (Manual) (20-40) % Reactive Lymphs % (0-0) % Monocytes % (Manual) (0-10) % Eosinophils % (Manual) (0-4) % Metamyelocytes % (0-0) % Myelocytes % (0-0) % Nucleated RBC % (0-0) % Platelet Estimate (NORMAL) Hypochromasia (manual) Poikilocytosis (manual Anisocytosis (manual) Target Cells Ovalocytes Carter Cells Schistocytes Puncture Site pCO2 (35-45) mm/Hg pO2 (80-100) mm/Hg HCO3 (21-28) mmol/L ABG pH (7.35-7.45) ABG Total CO2 (22-28) mmol/L ABG O2 Saturation (95-98) % ABG Base Excess (-2.0-3.0) mmol/L Fabrice Test ABG Potassium (3.6-5.2) mmol/L A-a O2 Difference mm/Hg Respiratory Index Sodium (132-148) mmol/l Chloride (98-107) mmol/L Glucose (65-105) mg/dl Lactate (0.7-2.1) mmol/L FiO2 % Inspiratory BiPAP Expiratory BiPAP Crit Value Called To Crit Value Called By Crit Value Read Back Blood Gas Notified Time Potassium (3.6-5.2) mmol/L Carbon Dioxide (22-30) mmol/L Anion Gap (10-20) BUN (7-17) mg/dL Creatinine (0.7-1.2) mg/dL Est GFR ( Amer) Est GFR (Non-Af Amer) Random Glucose (65-105) mg/dL Calcium (8.6-10.4) mg/dl Total Bilirubin (0.2-1.3) mg/dL AST (14-36) U/L ALT (9-52) U/L Alkaline Phosphatase (38-126) U/L NT-Pro-B Natriuret Pep (0-900) pg/mL Total Protein (6.3-8.3) g/dL Albumin (3.5-5.0) g/dL Globulin (2.2-3.9) gm/dL Albumin/Globulin Ratio (1.0-2.1) Free T4 (0.78-2.19) ng/dL Thyroxine (T4) (5.5-11.0) ug/dL TSH 3rd Generation (0.46-4.68) mIU/L Cortisol AM Sample (4.46-22.7) ug/dL Arterial Blood Potassium (3.6-5.2) mmol/L Influenza Type A Ab 1:16 H (<1:8) titer Influenza Type B Ab <1:8 (<1:8) titer Laboratory Results - last 24 hr 06/27/17 06/30/17 06/30/17 13:00 13:10 13:14 WBC RBC Hgb Hct MCV MCH MCHC RDW Plt Count MPV Neut % (Auto) Lymph % (Auto) Blount % (Auto) Eos % (Auto) Baso % (Auto) Neut # (Auto) Lymph # (Auto) Blount # (Auto) Eos # (Auto) Baso # (Auto) Neutrophils % (Manual) Band Neutrophils % Lymphocytes % (Manual) Reactive Lymphs % Monocytes % (Manual) Eosinophils % (Manual) Metamyelocytes % Myelocytes % Nucleated RBC % Platelet Estimate Hypochromasia (manual) Poikilocytosis (manual Anisocytosis (manual) Target Cells Ovalocytes Eli Cells Schistocytes Puncture Site Lb pCO2 31 L pO2 292 H HCO3 27.3 ABG pH 7.52 H ABG Total CO2 26.3 ABG O2 Saturation 99.6 H ABG Base Excess 3.0 Fabrice Test Na ABG Potassium 3.6 A-a O2 Difference 204.0 Respiratory Index 0.7 Sodium 129.0 L Chloride 97.0 L Glucose 103 Lactate 2.5 H FiO2 75.0 Inspiratory BiPAP 12 Expiratory BiPAP 6 Crit Value Called To Dr quinteros Crit Value Called By Tomas [facility] Crit Value Read Back Y Blood Gas Notified Time 1320 Potassium Carbon Dioxide Anion Gap BUN Creatinine Est GFR ( Amer) Est GFR (Non-Af Amer) Random Glucose Calcium Total Bilirubin AST ALT Alkaline Phosphatase NT-Pro-B Natriuret Pep 5230 H Total Protein Albumin Globulin Albumin/Globulin Ratio Free T4 Thyroxine (T4) TSH 3rd Generation 4.81 H Cortisol AM Sample Arterial Blood Potassium 3.6 Influenza Type A Ab 1:16 H Influenza Type B Ab <1:8 07/01/17 07/01/17 07/01/17 06:16 06:16 06:16 WBC RBC Hgb Hct MCV MCH MCHC RDW Plt Count MPV Neut % (Auto) Lymph % (Auto) Blount % (Auto) Eos % (Auto) Baso % (Auto) Neut # (Auto) Lymph # (Auto) Blount # (Auto) Eos # (Auto) Baso # (Auto) Neutrophils % (Manual) Band Neutrophils % Lymphocytes % (Manual) Reactive Lymphs % Monocytes % (Manual) Eosinophils % (Manual) Metamyelocytes % Myelocytes % Nucleated RBC % Platelet Estimate Hypochromasia (manual) Poikilocytosis (manual Anisocytosis (manual) Target Cells Ovalocytes Eli Cells Schistocytes Puncture Site pCO2 pO2 HCO3 ABG pH ABG Total CO2 ABG O2 Saturation ABG Base Excess Fabrice Test ABG Potassium A-a O2 Difference Respiratory Index Sodium 127 L Chloride 92 L Glucose Lactate FiO2 Inspiratory BiPAP Expiratory BiPAP Crit Value Called To Crit Value Called By Crit Value Read Back Blood Gas Notified Time Potassium 3.1 L Carbon Dioxide 27 Anion Gap 11 BUN 18 H Creatinine 0.6 L Est GFR ( Amer) > 60 Est GFR (Non-Af Amer) > 60 Random Glucose 96 Calcium 7.8 L Total Bilirubin 0.6 AST 14 D ALT 22 Alkaline Phosphatase 48 NT-Pro-B Natriuret Pep Total Protein 4.8 L Albumin 2.1 L Globulin 2.8 Albumin/Globulin Ratio 0.7 L Free T4 0.91 Thyroxine (T4) 5.00 L TSH 3rd Generation 3.52 Cortisol AM Sample 18.9 Arterial Blood Potassium Influenza Type A Ab Influenza Type B Ab 07/01/17 06:17 WBC 7.1 RBC 2.97 L Hgb 8.5 L D Hct 25.7 L MCV 86.5 MCH 28.7 MCHC 33.2 RDW 15.7 H Plt Count 206 D MPV 9.0 Neut % (Auto) 90.3 H Lymph % (Auto) 6.8 L Blount % (Auto) 0.9 Eos % (Auto) 1.9 Baso % (Auto) 0.1 Neut # (Auto) 6.4 Lymph # (Auto) 0.5 L Blount # (Auto) 0.1 Eos # (Auto) 0.1 Baso # (Auto) 0.0 Neutrophils % (Manual) 57 Band Neutrophils % 23 H* Lymphocytes % (Manual) 11 L Reactive Lymphs % 3 H Monocytes % (Manual) 2 Eosinophils % (Manual) 2 Metamyelocytes % 1 H Myelocytes % 1 H Nucleated RBC % 1 H Platelet Estimate Normal Hypochromasia (manual) Slight Poikilocytosis (manual Moderate Anisocytosis (manual) Slight Target Cells Slight Ovalocytes Slight Eli Cells Slight Schistocytes Slight Puncture Site pCO2 pO2 HCO3 ABG pH ABG Total CO2 ABG O2 Saturation ABG Base Excess Fabrice Test ABG Potassium A-a O2 Difference Respiratory Index Sodium Chloride Glucose Lactate FiO2 Inspiratory BiPAP Expiratory BiPAP Crit Value Called To Crit Value Called By Crit Value Read Back Blood Gas Notified Time Potassium Carbon Dioxide Anion Gap BUN Creatinine Est GFR ( Amer) Est GFR (Non-Af Amer) Random Glucose Calcium Total Bilirubin AST ALT Alkaline Phosphatase NT-Pro-B Natriuret Pep Total Protein Albumin Globulin Albumin/Globulin Ratio Free T4 Thyroxine (T4) TSH 3rd Generation Cortisol AM Sample Arterial Blood Potassium Influenza Type A Ab Influenza Type B Ab EKG/Cardiology Studies: Cardiology / EKG Studies 06/30/17 11:35 EKG [ELECTROCARDIOGRAM] Stat Comment: Mode Of Transportation: Reason For Exam: tachycardia Isolation: Special Contact - Procedures Procedures (Free Text): - Constitutional Appears: Toxic, In Acute Distress - Head Exam Head Exam: ATRAUMATIC - Eye Exam Eye Exam: EOMI Pupil Exam: PERRL - ENT Exam ENT Exam: Mucous Membranes Moist, Normal Exam - Neck Exam Neck exam: Positive for: Normal Inspection - Respiratory Exam Respiratory Exam: Accessory Muscle Use, Rales, Rhonchi, Wheezes Additional comments: On Bipap - Cardiovascular Exam Cardiovascular Exam: Tachycardia, Irregular Rhythm, +S1, +S2. absent: JVD, Systolic Murmur - GI/Abdominal Exam GI & Abdominal Exam: Normal Bowel Sounds, Soft. absent: Tenderness - Extremities Exam Extremities exam: Positive for: pedal edema - Neurological Exam Neurological exam: Altered - Skin Skin Exam: Intact, Normal Color, Warm Review of Systems - Review of Systems Systems not reviewed;Unavailable: Altered Mental Status Critical Care Progress Note - Nutrition Nutrition: Nutrition Category Date Time Status Heart Healthy Diet [DIET] Diets 06/27/17 Dinner Active Assessment/Plan - Assessment and Plan (Free Text) Assessment: 77 year old F with MDS, recent PE (04/2017), CAD, Afib, brought to ICU for shortness of breath. Infectious Disease: Sepsis - Colitis Infectious Disease consult w/ Dr Hernandez CT chest/abd/pelvix without IV contrast - Extensive wall thickening of the rectum lobe and distal sigmoid colon; correlate for colitis and/or proctitis. Additionally evidence of cecal and the left colonic wall thickening suspicious for colitis. Procalcitonin HIGH Flagyl 500mg IV TID Vancomycin 250mg PO QID Fluconazole 200mg IV QD Cefepime 1g IV BID Cardio: CAD, Afib, Diastolic CHF Cardiology consult w/ Dr Sosa * recent cardiac cath revealed RCA with large thrombus in the distal RCA. No angioplasty baloon or stent is big enough to open the obstructing thrombus. A decision was made as per Dr Skinner recommendation to treat the patient medically with antiplatelet and anticoagulation. Cardizem 30mg PO QID ProBNP - 5230 ECHO - Normal ECHO. LVSF normal. EF 60%. Venous dopplers LE - normal Pulm: Shortness of breath - COPD vs CHF? Pulm consult w/ Dr Joseph Ivan 3ml INH RQ6 Methylprednisolone 40mg IV Q4H PRN Lasix 20mg IV Once PRN GI: Positive stool occult GI consult w/ Dr Thurman * Since the EGD and colonoscopy were scheduled last week, Code Sepsis and Rapid Response have been called. I do not think she is stable for the GI workup at this time. Hematology: Anemia, MDS Heme consult w/ Dr Meyer s/p 2 units pRBC 06/28/17 Procrit [id number] SC TTS Methimazole 5mg PO QD Endo: DM, Chronic SIADH [employer] Analyst consult w/ Dr Raymundo Renal consult w/ Dr Tabor Neuro: Neurology consult w/ Sky Moncada PPx: Heparin 5000u SC TID Multivitamin <John Paul Ruiz S - Last Filed: 07/01/17 17:17> CCU Objective - Vital Signs / Intake & Output Vital Signs (Last 4 hours): Vital Signs Temp Pulse Resp BP Pulse Ox 07/01/17 17:07 80/33 L 07/01/17 16:18 102 H 17 93/39 L 07/01/17 16:00 99.2 F 91 H 25 H 95 07/01/17 15:49 101 H 23 80/41 L 97 07/01/17 15:42 88 25 H 97 07/01/17 15:08 93 H 17 68/36 L 99 07/01/17 15:01 86 25 H 71/33 L 97 07/01/17 15:00 85 23 100 07/01/17 14:53 89 25 H 64/28 L 89 L 07/01/17 14:51 89 25 H 61/27 L 100 07/01/17 14:49 90 25 H 54/23 L 99 07/01/17 14:48 93 H 22 58/20 L 100 07/01/17 14:24 95 H 26 H 77/35 L 100 07/01/17 14:18 101 H 26 H 67/32 L 100 07/01/17 14:11 96 H 27 H 65/29 L 100 07/01/17 14:10 106 H 29 H 62/35 L 100 07/01/17 14:00 101 H 27 H 99 07/01/17 13:49 88 28 H 75/37 L 99 Intake and Output (Last 8hrs): Intake & Output 07/01/17 07/01/17 07/01/17 06:59 14:59 22:59 Intake Total 350 510 0 Output Total 1100 Balance 350 -590 0 Weight 147 lb 3.2 oz Intake: Intake, IV Amount 150 150 Left Hand 150 150 Oral 200 360 0 Output: Urine 1100 Urine, Voided 1100 Other: # Bowel Movements 1 - Medications Active Medications: Active Medications Generic Name Dose Route Start Last Admin Trade Name Freq PRN Reason Stop Dose Admin Acetaminophen 650 mg 06/28/17 13:35 07/01/17 09:55 Tylenol 325mg Tab PO 650 mg Q4 PRN Administration blood transfusion Albuterol/Ipratropium 3 ml 06/30/17 08:00 07/01/17 13:51 Duoneb 3 Mg/0.5 Mg (3 Ml) Ud INH 3 ml RQ6 VARINDER Administration Apixaban 5 mg 06/16/17 10:00 06/24/17 11:18 Eliquis PO 5 mg BID VARINDER Administration Aspirin 81 mg 06/16/17 10:00 06/24/17 11:18 Aspirin Chewable PO 81 mg DAILY VARINDER Administration Dicyclomine HCl 10 mg 06/21/17 10:00 07/01/17 17:06 Bentyl PO 10 mg BID VARINDER Administration Digoxin 0.25 mg 07/01/17 10:00 07/01/17 09:45 Lanoxin IVP 07/03/17 23:59 0.25 mg Q12 VARINDER Administration Diltiazem HCl 30 mg 07/01/17 10:00 07/01/17 17:06 Cardizem PO Not Given QID [facility] Furosemide 20 mg 06/28/17 15:22 06/29/17 01:27 Lasix IVP 20 mg ONCE PRN Administration before transfusion Furosemide 20 mg 06/30/17 13:28 07/01/17 17:07 Lasix PO Not Given BID [facility] Heparin Sodium (Porcine) 5,000 units 06/30/17 18:00 07/01/17 17:06 Heparin SC 5,000 units Q8H VARINDER Administration Metronidazole 500 mg in 100 mls @ 100 mls/hr 06/22/17 15:00 07/01/17 14:22 Flagyl IVPB 100 mls/hr Q8 VARINDER Administration Fluconazole 100 mls @ 100 mls/hr 06/25/17 16:00 07/01/17 09:41 Diflucan Iv 200 Mg/100 Ml Ns IVPB 100 mls/hr DAILY VARINDER Administration Cefepime HCl 1 gm in 50 mls @ 100 mls/hr 06/27/17 12:00 07/01/17 11:30 Maxipime Iv 1 Gm Premix IVPB 100 mls/hr Q12H VARINDER Administration Losartan Potassium 25 mg 06/17/17 21:33 06/28/17 10:02 Cozaar PO Not Given DAILY [facility] Methimazole 5 mg 06/16/17 10:00 07/01/17 09:43 Tapazole PO 5 mg DAILY VARINDER Administration Methylprednisolone 40 mg 06/28/17 13:38 06/29/17 01:26 Solu-Medrol IVP 40 mg Q4 PRN Administration Other Metoprolol Succinate 25 mg 06/23/17 10:00 06/24/17 11:19 Toprol Xl PO 25 mg DAILY VARINDER Administration Multivitamins 1 tab 06/16/17 10:00 07/01/17 09:42 Hexavitamin PO 1 tab DAILY VARINDER Administration Potassium Chloride 20 meq 07/01/17 10:00 07/01/17 17:10 K-Dur 20 Meq Er Tab PO 07/01/17 18:01 20 meq BID VARINDER Administration Vancomycin HCl 250 mg 06/19/17 10:00 07/01/17 17:07 Vancocin (Oral Or Rectal Use) PO 250 mg QID VARINDER Administration - Patient Studies Lab Studies: Microbiology Studies 06/27/17 10:52 Blood Culture - Preliminary Blood-Venous NO GROWTH AFTER 4 DAYS 06/27/17 10:52 Blood Culture - Preliminary Blood-Venous NO GROWTH AFTER 4 DAYS 06/26/17 10:27 - Final Blood Transfusion Bag - Final NO GROWTH AFTER 5 DAYS Lab Studies 07/01/17 07/01/17 07/01/17 Range/Units 06:17 06:16 06:16 WBC 7.1 (4.8-10.8) K/uL RBC 2.97 L (3.80-5.20) Mil/uL Hgb 8.5 L D (11.0-16.0) g/dL Hct 25.7 L (34.0-47.0) % MCV 86.5 (81.0-99.0) fL MCH 28.7 (27.0-31.0) pg MCHC 33.2 (33.0-37.0) g/dL RDW 15.7 H (11.5-14.5) % Plt Count 206 D (130-400) K/uL MPV 9.0 (7.2-11.7) fL Neut % (Auto) 90.3 H (50.0-75.0) % Lymph % (Auto) 6.8 L (20.0-40.0) % Blount % (Auto) 0.9 (0.0-10.0) % Eos % (Auto) 1.9 (0.0-4.0) % Baso % (Auto) 0.1 (0.0-2.0) % Neut # (Auto) 6.4 (1.8-7.0) K/uL Lymph # (Auto) 0.5 L (1.0-4.3) K/uL Blount # (Auto) 0.1 (0.0-0.8) K/uL Eos # (Auto) 0.1 (0.0-0.7) K/uL Baso # (Auto) 0.0 (0.0-0.2) K/uL Neutrophils % (Manual) 57 (50-75) % Band Neutrophils % 23 H* (0-2) % Lymphocytes % (Manual) 11 L (20-40) % Reactive Lymphs % 3 H (0-0) % Monocytes % (Manual) 2 (0-10) % Eosinophils % (Manual) 2 (0-4) % Metamyelocytes % 1 H (0-0) % Myelocytes % 1 H (0-0) % Nucleated RBC % 1 H (0-0) % Platelet Estimate Normal (NORMAL) Hypochromasia (manual) Slight Poikilocytosis (manual Moderate Anisocytosis (manual) Slight Target Cells Slight Ovalocytes Slight Eli Cells Slight Schistocytes Slight Sodium (132-148) mmol/L Potassium (3.6-5.2) mmol/L Chloride (98-107) mmol/L Carbon Dioxide (22-30) mmol/L Anion Gap (10-20) BUN (7-17) mg/dL Creatinine (0.7-1.2) mg/dL Est GFR ( Amer) Est GFR (Non-Af Amer) Random Glucose (65-105) mg/dL Calcium (8.6-10.4) mg/dl Total Bilirubin (0.2-1.3) mg/dL AST (14-36) U/L ALT (9-52) U/L Alkaline Phosphatase (38-126) U/L Total Protein (6.3-8.3) g/dL Albumin (3.5-5.0) g/dL Globulin (2.2-3.9) gm/dL Albumin/Globulin Ratio (1.0-2.1) Free T4 0.91 (0.78-2.19) ng/dL Thyroxine (T4) (5.5-11.0) ug/dL TSH 3rd Generation (0.46-4.68) mIU/L Cortisol AM Sample 18.9 (4.46-22.7) ug/dL Influenza Type A Ab (<1:8) titer Influenza Type B Ab (<1:8) titer 07/01/17 06/27/17 Range/Units 06:16 13:00 WBC (4.8-10.8) K/uL RBC (3.80-5.20) Mil/uL Hgb (11.0-16.0) g/dL Hct (34.0-47.0) % MCV (81.0-99.0) fL MCH (27.0-31.0) pg MCHC (33.0-37.0) g/dL RDW (11.5-14.5) % Plt Count (130-400) K/uL MPV (7.2-11.7) fL Neut % (Auto) (50.0-75.0) % Lymph % (Auto) (20.0-40.0) % Blount % (Auto) (0.0-10.0) % Eos % (Auto) (0.0-4.0) % Baso % (Auto) (0.0-2.0) % Neut # (Auto) (1.8-7.0) K/uL Lymph # (Auto) (1.0-4.3) K/uL Blount # (Auto) (0.0-0.8) K/uL Eos # (Auto) (0.0-0.7) K/uL Baso # (Auto) (0.0-0.2) K/uL Neutrophils % (Manual) (50-75) % Band Neutrophils % (0-2) % Lymphocytes % (Manual) (20-40) % Reactive Lymphs % (0-0) % Monocytes % (Manual) (0-10) % Eosinophils % (Manual) (0-4) % Metamyelocytes % (0-0) % Myelocytes % (0-0) % Nucleated RBC % (0-0) % Platelet Estimate (NORMAL) Hypochromasia (manual) Poikilocytosis (manual Anisocytosis (manual) Target Cells Ovalocytes Eli Cells Schistocytes Sodium 127 L (132-148) mmol/L Potassium 3.1 L (3.6-5.2) mmol/L Chloride 92 L (98-107) mmol/L Carbon Dioxide 27 (22-30) mmol/L Anion Gap 11 (10-20) BUN 18 H (7-17) mg/dL Creatinine 0.6 L (0.7-1.2) mg/dL Est GFR ( Amer) > 60 Est GFR (Non-Af Amer) > 60 Random Glucose 96 (65-105) mg/dL Calcium 7.8 L (8.6-10.4) mg/dl Total Bilirubin 0.6 (0.2-1.3) mg/dL AST 14 D (14-36) U/L ALT 22 (9-52) U/L Alkaline Phosphatase 48 (38-126) U/L Total Protein 4.8 L (6.3-8.3) g/dL Albumin 2.1 L (3.5-5.0) g/dL Globulin 2.8 (2.2-3.9) gm/dL Albumin/Globulin Ratio 0.7 L (1.0-2.1) Free T4 (0.78-2.19) ng/dL Thyroxine (T4) 5.00 L (5.5-11.0) ug/dL TSH 3rd Generation 3.52 (0.46-4.68) mIU/L Cortisol AM Sample (4.46-22.7) ug/dL Influenza Type A Ab 1:16 H (<1:8) titer Influenza Type B Ab <1:8 (<1:8) titer Laboratory Results - last 24 hr 06/27/17 07/01/17 07/01/17 13:00 06:16 06:16 WBC RBC Hgb Hct MCV MCH MCHC RDW Plt Count MPV Neut % (Auto) Lymph % (Auto) Blount % (Auto) Eos % (Auto) Baso % (Auto) Neut # (Auto) Lymph # (Auto) Blount # (Auto) Eos # (Auto) Baso # (Auto) Neutrophils % (Manual) Band Neutrophils % Lymphocytes % (Manual) Reactive Lymphs % Monocytes % (Manual) Eosinophils % (Manual) Metamyelocytes % Myelocytes % Nucleated RBC % Platelet Estimate Hypochromasia (manual) Poikilocytosis (manual Anisocytosis (manual) Target Cells Ovalocytes Carter Cells Schistocytes Sodium 127 L Potassium 3.1 L Chloride 92 L Carbon Dioxide 27 Anion Gap 11 BUN 18 H Creatinine 0.6 L Est GFR ( Amer) > 60 Est GFR (Non-Af Amer) > 60 Random Glucose 96 Calcium 7.8 L Total Bilirubin 0.6 AST 14 D ALT 22 Alkaline Phosphatase 48 Total Protein 4.8 L Albumin 2.1 L Globulin 2.8 Albumin/Globulin Ratio 0.7 L Free T4 Thyroxine (T4) 5.00 L TSH 3rd Generation 3.52 Cortisol AM Sample 18.9 Influenza Type A Ab 1:16 H Influenza Type B Ab <1:8 07/01/17 07/01/17 06:16 06:17 WBC 7.1 RBC 2.97 L Hgb 8.5 L D Hct 25.7 L MCV 86.5 MCH 28.7 MCHC 33.2 RDW 15.7 H Plt Count 206 D MPV 9.0 Neut % (Auto) 90.3 H Lymph % (Auto) 6.8 L Blount % (Auto) 0.9 Eos % (Auto) 1.9 Baso % (Auto) 0.1 Neut # (Auto) 6.4 Lymph # (Auto) 0.5 L Blount # (Auto) 0.1 Eos # (Auto) 0.1 Baso # (Auto) 0.0 Neutrophils % (Manual) 57 Band Neutrophils % 23 H* Lymphocytes % (Manual) 11 L Reactive Lymphs % 3 H Monocytes % (Manual) 2 Eosinophils % (Manual) 2 Metamyelocytes % 1 H Myelocytes % 1 H Nucleated RBC % 1 H Platelet Estimate Normal Hypochromasia (manual) Slight Poikilocytosis (manual Moderate Anisocytosis (manual) Slight Target Cells Slight Ovalocytes Slight Carter Cells Slight Schistocytes Slight Sodium Potassium Chloride Carbon Dioxide Anion Gap BUN Creatinine Est GFR ( Amer) Est GFR (Non-Af Amer) Random Glucose Calcium Total Bilirubin AST ALT Alkaline Phosphatase Total Protein Albumin Globulin Albumin/Globulin Ratio Free T4 0.91 Thyroxine (T4) TSH 3rd Generation Cortisol AM Sample Influenza Type A Ab Influenza Type B Ab Critical Care Progress Note - Nutrition Nutrition: Nutrition Category Date Time Status Heart Healthy Diet [DIET] Diets 06/27/17 Dinner Active Assessment/Plan (1) SOB (shortness of breath) Current Visit: No Status: Acute (2) Myelodysplasia (myelodysplastic syndrome) Current Visit: No Status: Acute Attending/Attestation - Attestation I have personally seen and examined this patient.: Yes I have fully participated in the care of the patient.: Yes I have reviewed all pertinent clinical information: Yes Notes (Text): 07/01/17 17:16 Patient seen and examined in the intensive care unit. Transfer to ICU for atrial fibrillation with rapid ventricular rate patient started on Cardizem Triple-lumen placed for hypotension Possible pressors Continue antibiotics for C. difficile and pneumonia Follow-up chest x-ray
--- NOTE | 2017-07-01 12:21 | CP.PCM.PN ---
Subjective - Date & Time of Evaluation Date of Evaluation: 07/01/17 Time of Evaluation: 12:21 - Subjective Subjective: pt is seen and examined, follow up consult is dictated #[id number] supplement k+ Objective - Vital Signs/Intake and Output Vital Signs (last 24 hours): Temp Pulse Resp BP Pulse Ox 100.5 F H 131 H 31 H 93/48 L 98 07/01/17 08:00 07/01/17 11:00 07/01/17 11:00 07/01/17 10:49 07/01/17 11:00 Intake and Output: 07/01/17 07/01/17 06:59 18:59 Intake Total 940 290 Output Total 1100 Balance 940 -810 - Medications Medications: Current Medications Acetaminophen (Tylenol 325mg Tab) 650 mg PO Q4 PRN PRN Reason: blood transfusion Last Admin: 07/01/17 09:55 Dose: 650 mg Albuterol/Ipratropium (Duoneb 3 Mg/0.5 Mg (3 Ml) Ud) 3 ml INH RQ6 [facility] Last Admin: 07/01/17 07:29 Dose: 3 ml Apixaban (Eliquis) 5 mg PO BID [facility] Last Admin: 06/24/17 11:18 Dose: 5 mg Aspirin (Aspirin Chewable) 81 mg PO DAILY [facility] Last Admin: 06/24/17 11:18 Dose: 81 mg Dicyclomine HCl (Bentyl) 10 mg PO BID [facility] Last Admin: 07/01/17 09:41 Dose: 10 mg Digoxin (Lanoxin) 0.25 mg IVP Q12 [facility] Stop: 07/03/17 23:59 Last Admin: 07/01/17 09:45 Dose: 0.25 mg Diltiazem HCl (Cardizem) 30 mg PO QID [facility] Last Admin: 07/01/17 11:29 Dose: 30 mg Furosemide (Lasix) 20 mg IVP ONCE PRN PRN Reason: before transfusion Last Admin: 06/29/17 01:27 Dose: 20 mg Furosemide (Lasix) 20 mg PO BID [facility] Last Admin: 07/01/17 09:42 Dose: 20 mg Heparin Sodium (Porcine) (Heparin) 5,000 units SC Q8H [facility] Last Admin: 07/01/17 09:42 Dose: 5,000 units Metronidazole (Flagyl) 500 mg in 100 mls @ 100 mls/hr IVPB Q8 [facility] Last Admin: 07/01/17 05:50 Dose: 100 mls/hr Fluconazole (Diflucan Iv 200 Mg/100 Ml Ns) 100 mls @ 100 mls/hr IVPB DAILY [facility] Last Admin: 07/01/17 09:41 Dose: 100 mls/hr Cefepime HCl (Maxipime Iv 1 Gm Premix) 1 gm in 50 mls @ 100 mls/hr IVPB Q12H [facility] Last Admin: 07/01/17 11:30 Dose: 100 mls/hr Vancomycin/Sodium Chloride (Vancomycin 1 Gm/Ns 200 Ml) 1 gm in 200 mls @ 133.333 mls/hr IVPB ONCE ONE Stop: 07/01/17 13:59 Losartan Potassium (Cozaar) 25 mg PO DAILY [facility] Last Admin: 06/28/17 10:02 Dose: Not Given Methimazole (Tapazole) 5 mg PO DAILY [facility] Last Admin: 07/01/17 09:43 Dose: 5 mg Methylprednisolone (Solu-Medrol) 40 mg IVP Q4 PRN PRN Reason: Other Last Admin: 06/29/17 01:26 Dose: 40 mg Metoprolol Succinate (Toprol Xl) 25 mg PO DAILY [facility] Last Admin: 06/24/17 11:19 Dose: 25 mg Multivitamins (Hexavitamin) 1 tab PO DAILY [facility] Last Admin: 07/01/17 09:42 Dose: 1 tab Potassium Chloride (K-Dur 20 Meq Er Tab) 20 meq PO BID [facility] Stop: 07/01/17 18:01 Last Admin: 07/01/17 11:28 Dose: 20 meq Vancomycin HCl (Vancocin (Oral Or Rectal Use)) 250 mg PO QID [facility] Last Admin: 07/01/17 09:44 Dose: 250 mg - Labs Labs: 07/01/17 06:17 07/01/17 06:16 PT 18.2 SECONDS (9.7-12.2) H 06/27/17 11:09 INR 1.6 06/27/17 11:09 APTT 34 SECONDS (21-34) 06/15/17 13:26
--- NOTE | 2017-07-01 12:22 | CARD ---
APPROVED REPORT EKG Measurement Heart [id number] <Conclusion> Atrial fibrillation with rapid ventricular response Low voltage QRS Septal infarct, age undetermined ST & T wave abnormality, consider anterolateral ischemia Baseline wander and artifact suggest repeat Abnormal ECG
[2017-07-01] MEDS ORDERED: Vancomycin 1 gm/NS 200 ml 1 GM/200 ML BAG IVPB ONE (12:30)
--- NOTE | 2017-07-01 17:14 | PCM.PROC ---
Procedures Attestation:: I certify that I have explained the specified Operation(s) or Procedure(s), risks, benefits and reasonable alternatives to the Patient and/or other person responsible. The opportunity was given to ask questions and all questions answered - Central Line Placement Right Subclavian Triple Lumen Catheter Aseptic technique was employed throughout the procedure: Hand Hygiene done prior to procedure, Full sterile barriers (mask, hair cover, sterile gown, sterile gloves), Full body sterile drape, Chloraprep Antiseptic: 30 second prep for IJ or SC sites CVP Time Out Performed: Yes Pt. Placed on Pulse Ox Monitor: Yes Central Line Prep: Chlorhexidine-Alcohol Combination Local Anesthesia Used: Lidocaine 1% Amount of Anesthesia Used (mls): 3 Ultrasound Used for Placement: No Central Line Lumen Inserted: triple Central Line Length: 16 cm Post Procedure: Sutured in Place, Good Blood Return, All Ports Aspirated, Flushed, Capped, Sterile Dressing Applied Secured by: Suture Post procedure dressing: Chlorhexidine disc (Biopatch) Post Procedure X-Ray: Yes Patient Tolerated Procedure: Well
--- NOTE | 2017-07-01 17:24 | RAD ---
HISTORY: TLC placement COMPARISON: Chest x-ray performed 06/30/17 TECHNIQUE: Chest, one view. FINDINGS: Right-sided central venous catheter extends the SVC. LUNGS: Interstitial prominence. Small bilateral pleural effusions. Left lower lobe consolidation. No definite pneumothorax. CARDIOVASCULAR: Cardiomegaly. Atherosclerotic calcifications. OSSEOUS STRUCTURES: No acute osseous abnormality identified. VISUALIZED UPPER ABDOMEN: Unremarkable. OTHER FINDINGS: None. IMPRESSION: Right-sided central venous catheter extends the SVC. Interstitial prominence. Small bilateral pleural effusions. Cardiomegaly. Left lower lobe consolidation
[2017-07-01] MEDS: Phenylephrine 30 MG in Sodium Chloride 0.9% 250 ML IV PRN ×2 (21:00→23:55)
[2017-07-01] MEDS ORDERED: Piperacillin/Tazobact 3.375 GM in Sodium Chloride 0.9% 100 ML IVPB SCH (23:30)
[2017-07-01] MEDS ORDERED: Sodium Chloride 0.9% 1,000 ML IV ONE (23:44)
[2017-07-01 23:56] LABS: VENOUS BLOOD GAS BASE EXCESS -3.4 mmol/L (0.0-2.0); VENOUS BLOOD GAS PCO2 37 mmHg (40-60); VENOUS BLOOD GAS PO2 37 mm/Hg (30-55); VENOUS BLOOD PH 7.37 (7.32-7.43)
[2017-07-02 00:13] LABS: BASO # 0.1 K/uL (0.0-0.2); BASO % 0.3 % (0.0-2.0); EOS # 0.1 K/uL (0.0-0.7); EOS % 0.2 % (0.0-4.0); HEMOGLOBIN 7.7 g/dL (11.0-16.0); LYMPH # 0.7 K/uL (1.0-4.3); LYMPH % 2.3 % (20.0-40.0); MEAN CELL VOLUME 86.9 fL (81.0-99.0); MEAN CORPUSCULAR HEMOGLOBIN 28.7 pg (27.0-31.0); MONO # 0.2 K/uL (0.0-0.8); MONO % 0.8 % (0.0-10.0); NEUT # 27.9 K/uL (1.8-7.0); NEUT % 96.4 % (50.0-75.0); NRBC % 0.2 % (0.0-2.0); PLATELET COUNT 181 K/uL (130-400); RBC 2.68 Mil/uL (3.80-5.20); WHITE BLOOD COUNT 28.9 K/uL (4.8-10.8)
[2017-07-02 00:26] LABS: BLOOD UREA NITROGEN 18 mg/dL (7-17); CALCIUM 7.5 mg/dl (8.6-10.4); GFR AFRICAN-AMERICAN > 60; GFR NON-AFRICAN AMERICAN > 60
[2017-07-02 01:29] LABS: ANISOCYTOSIS MODERATE; HYPOCHROMIC SLIGHT; LYMPHOCYTE 2 % (20-40); MONOCYTE 3 % (0-10); NEUTROPHIL 66 % (50-75); PLATELET ESTIMATE NORMAL (NORMAL); POIKILOCYTOSIS MODERATE; TOTAL CELLS COUNTED 100
--- NOTE | 2017-07-02 01:35 | PCM.SEPTIC ---
Sepsis Progress Note - Reassessment Type Date of Evaluation: 07/02/17 Time of Evaluation: 01:32 Reassessment Type: Non-invasive reassessment - Non Invasive Reassessment Were the most recent vital sign reviewed: Yes Vital Sign (Latest): Temp Pulse Resp BP Pulse Ox 97.7 F 83 22 94/36 L 100 07/01/17 20:00 07/02/17 00:14 07/02/17 00:14 07/02/17 00:14 07/02/17 00:14 Cardiovascular: Yes: Regular Rate, Rhythm, Edema. No: Chest Non Tender, Gallop , JVD, Murmur, Bradycardia, Tachycardia Respiratory: Yes: Normal Breath Sounds. No: Accessory Muscle Use, Crackles, Wheezing Capillary Refill: Normal (Less than 2 sec) Pulses: Normal Radial, Normal Dorsalis Pedis, Normal Posterior Tibialis Skin: Normal Color, Warm (Patient with septic shock from pneumonia and colitis, remians hypotensive despite being on Phenylephrine, given 500cc IV normal saline bolous and Levophed was added)
[2017-07-02 01:37] LABS: BANDS 29 % (0-2)
[2017-07-02] MEDS: Albuterol-Ipratrop 3 mg / 0.5 (3 ml) UD INH SCH ×4 (01:59→20:45)
--- NOTE | 2017-07-02 02:56 | PN ---
ENDOCRINOLOGY FOLLOWUP NOTE LOCATION: Room 8. HISTORY: This is a 77-year-old female with congestive heart failure with supervening rapid atrial fibrillation and persistent tachycardia, and is now being followed closely for metabolic management. She also has underlying hyperthyroidism, currently on a low-dose medical therapy with Tapazole medications as given. Her latest chemistry showed a BUN of 18, sodium 127, potassium 3.1, chloride 92, CO2 of 27, glucose 96, and creatinine 0.6. The repeat thyroid study showed a T4 of 5.0 with a TSH of 3.52 and a free T4 of 0.91. ASSESSMENT: This is a 77-year-old female with congestive heart failure, supervening rapid atrial fibrillation and persistent tachycardia, and also progressive shortness of breath as noted and is being followed closely in the ICU for hemodynamic monitoring and is also being followed closely for metabolic management. She remains clinically and biochemically euthyroid at this time with a superimposed acute sick euthyroid syndrome as expected with this current admission. For better management, we will continue the current Tapazole medications given as 5 mg once daily as ordered, and we will obtain serum thyroid studies and titrate the dose regimen accordingly. We will also obtain serum chemistries, will supplement accordingly as needed. The possibility of adrenal insufficiency has been excluded with normal serum cortisol levels as noted and also the persistent hyponatremia is related to the diuretics given twice daily as ordered. Her biochemical indices are not indicative of subclinical hypoadrenalism. We will follow up with you. Marely Raymundo MD
[2017-07-02] MEDS: Phenylephrine 30 MG in Sodium Chloride 0.9% 250 ML IV PRN (05:13)
[2017-07-02] MEDS: metroNIDAZOLE IV 500 mg/100 ml 500 MG/100 ML BAG IVPB SCH ×3 (05:15→21:12)
[2017-07-02] MEDS ORDERED: Sodium Chloride 0.9% 500 ML IV ONE (05:53)
--- NOTE | 2017-07-02 06:58 | PN ---
DATE: FOLLOWUP RENAL CONSULTATION LOCATION: The patient is located in ICU, Bed 8. REQUESTED BY: Deion Marie MD REASON FOR FOLLOWUP: Hyponatremia. HISTORY OF PRESENT ILLNESS: Mrs. Espino is a 77 years elderly very pleasant [place]inese female with a past medical history significant for longstanding hypertension, coronary artery disease, CHF, AFib, myelodysplastic syndrome, anemia, multiple transfusions, C. diff colitis, hyponatremia, status post cardiac cath, and found to have a distal RCA thrombus, unable to place any stent, was admitted after discharging from the medical center with shortness of breath and found to have hyponatremia and C. difficile colitis. 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 The patient is being treated for AFib with rapid ventricular response. The patient is not in distress, complains feeling weak and tired. No chest pain. No shortness of breath. PHYSICAL EXAMINATION: VITAL SIGNS: This morning, blood pressure is , pulse 124, respirations 28, saturation 98%, and T-max is 100.5; last night T-max was 102.4. GENERAL: Mrs. Espino is a 77 years elderly female, moderately built, moderate nourished, not in distress, hypotension, and tachycardic. HEENT: Pupils normal and reactive to light and accommodation. Conjunctivae slightly pale. Sclerae anicteric. Tongue is moist. Trachea is midline. LUNGS: Symmetric on both sides. Bilateral breath sounds present. Bilateral basal crackles present, left more than the right. CVS: Tatamy at the fifth intercostal space, midclavicular line. S1, S2 audible. Tachycardic. Irregularly irregular. ABDOMEN: Normal in appearance, soft, tympanic. No guarding. No rigidity. No hepatosplenomegaly. 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 Nonfocal neuro examination. Cranial nerves II through XII grossly intact. Sensory and motor system is within normal limits. EXTREMITIES: No cyanosis, no clubbing. The patient has 2+ edema in both lower extremities. MEDICATIONS: Current medications include as follows: Aspirin 81 mg on hold, Bentyl 10 mg p.o. b.i.d., Cardizem 30 mg p.o. 4 times daily, losartan on hold, fluconazole 200 mg IV daily, DuoNeb inhaler and Eliquis on hold, Flagyl 500 mg q.8 hours, subcu heparin 5000 units q.8 hours, multivitamin 1 tablet daily, digoxin 0.25 mg IV q.12 hours, Lasix 20 mg p.o. b.i.d., cefepime 1 gm q.12 hours, phenylephrine 20 mcg per minute, Robitussin-DM, Solu-Medrol 40 mg IV q.4 hours, Tapazole 5 mg p.o. daily, Tylenol, vancomycin 250 mg p.o. 4 times daily. I's and O's in last 24 hours, intake is 1720 and output is 600. LABORATORY DATA: Include as follows: As of 07/01/2017, WBC 7.1, hemoglobin 8.5 and hematocrit is 25.7, platelets 206, neutrophils 57, bands 23, lymph 11 and reactive lymph is 3, monocytes 2, eosinophils is 2. Other laboratory data, sodium 127, potassium 3.1, chloride 92, CO2 of 27, BUN 18, creatinine 0.6, glucose 96, calcium 7.8. Total bili 0.6, AST 14, ALT 22, alkaline phosphatase 48, total protein 4.8, albumin is 2.1, free thyroxine is 0.91 and TSH is 5.0. Serum cortisol is 18.9, free thyroxine is 5, TSH is 4.81 and 3.52. In the reports, chest x-ray as of 07/01/2017, right-sided central venous catheter that extends to the SVC, interstitial pneumonia, small bilateral pleural effusions, cardiomegaly, and left lower lobe consolidation. IMPRESSION: In summary, Mrs. Espino is a 77 years elderly female with a history of hypertension, myelodysplastic syndrome, anemia, multiple transfusions, congestive heart failure, pulmonary embolism, atrial fibrillation, was admitted after cardiac catheterization with questionable thrombus in the RCA with shortness of breath and being treated for hyponatremia and C. difficile colitis, proctocolitis, status post renal replacement therapy yesterday and again on 06/30/2017 with atrial fibrillation with rapid ventricular response. 1. Hyponatremia, most likely secondary to syndrome of inappropriate antidiuretic hormone secretion, cannot rule out secondary to thyroid disorder. 2. Anemia secondary to myelodysplastic syndrome. 3. Sepsis. 4. Atrial fibrillation with a ventricular response. Continue Cardizem and continue transfuse as per PMD. Overall, prognosis is guarded. Thank you for allowing me to participate in your patient's care. Rehan Dos Santos MD
[2017-07-02 08:47] LABS: BASO % 0.2 % (0.0-2.0); LYMPH # 0.5 K/uL (1.0-4.3); MEAN PLATELET VOLUME 9.8 fL (7.2-11.7); MONO # 0.1 K/uL (0.0-0.8); RBC 3.07 Mil/uL (3.80-5.20)
[2017-07-02 08:52] LABS: EOS # 1.1 K/uL (0.0-0.7); HEMOGLOBIN 8.7 g/dL (11.0-16.0); LYMPH % 2.4 % (20.0-40.0); MEAN CELL VOLUME 86.4 fL (81.0-99.0); MEAN CORPUSCULAR HEMOGLOBIN 28.3 pg (27.0-31.0); MEAN CORPUSCULAR HGB CONC 32.8 g/dL (33.0-37.0); MONO % 0.7 % (0.0-10.0); NEUT # 19.7 K/uL (1.8-7.0); NEUT % 91.7 % (50.0-75.0); NRBC % 0.1 % (0.0-2.0); PLATELET COUNT 159 K/uL (130-400); RED CELL DISTRIBUTION WIDTH 16.1 % (11.5-14.5); WHITE BLOOD COUNT 21.4 K/uL (4.8-10.8)
--- NOTE | 2017-07-02 09:13 | CP.PCM.PN ---
Subjective - Date & Time of Evaluation Date of Evaluation: 07/02/18 Time of Evaluation: 08:40 - Subjective Subjective: Pt become hypotensive. Feels well and want to go to regular room c/o danish restricted movement Denies CP, (+) SOB at times and dry cough. Objective - Vital Signs/Intake and Output Vital Signs (last 24 hours): Temp Pulse Resp BP Pulse Ox 97.4 F L 79 23 89/42 L 98 07/02/17 06:55 07/02/17 07:23 07/02/17 07:23 07/02/17 07:23 07/02/17 07:23 Intake and Output: 07/02/17 07/02/17 06:59 18:59 Intake Total 3073.0 37.5 Balance 3073.0 37.5 - Medications Medications: Current Medications Acetaminophen (Tylenol 325mg Tab) 650 mg PO Q4 PRN PRN Reason: blood transfusion Last Admin: 07/01/17 09:55 Dose: 650 mg Albuterol/Ipratropium (Duoneb 3 Mg/0.5 Mg (3 Ml) Ud) 3 ml INH RQ6 [facility] Last Admin: 07/02/17 01:59 Dose: 3 ml Apixaban (Eliquis) 5 mg PO BID [facility] Last Admin: 06/24/17 11:18 Dose: 5 mg Aspirin (Aspirin Chewable) 81 mg PO DAILY [facility] Last Admin: 06/24/17 11:18 Dose: 81 mg Dicyclomine HCl (Bentyl) 10 mg PO BID [facility] Last Admin: 07/01/17 17:06 Dose: 10 mg Digoxin (Lanoxin) 0.25 mg IVP Q12 [facility] Stop: 07/03/17 23:59 Last Admin: 07/01/17 21:40 Dose: 0.25 mg Diltiazem HCl (Cardizem) 30 mg PO QID [facility] Last Admin: 07/01/17 21:41 Dose: Not Given Furosemide (Lasix) 20 mg IVP ONCE PRN PRN Reason: before transfusion Last Admin: 06/29/17 01:27 Dose: 20 mg Furosemide (Lasix) 20 mg PO BID [facility] Last Admin: 07/01/17 17:07 Dose: Not Given Guaifenesin/Dextromethorphan (Robitussin Dm) 5 ml PO Q6H PRN PRN Reason: Cough Heparin Sodium (Porcine) (Heparin) 5,000 units SC Q8H [facility] Last Admin: 07/02/17 02:36 Dose: Not Given Metronidazole (Flagyl) 500 mg in 100 mls @ 100 mls/hr IVPB Q8 [facility] Last Admin: 07/02/17 05:15 Dose: 100 mls/hr Fluconazole (Diflucan Iv 200 Mg/100 Ml Ns) 100 mls @ 100 mls/hr IVPB DAILY [facility] Last Admin: 07/01/17 09:41 Dose: 100 mls/hr Cefepime HCl (Maxipime Iv 1 Gm Premix) 1 gm in 50 mls @ 100 mls/hr IVPB Q12H [facility] Last Admin: 07/02/17 00:00 Dose: 100 mls/hr Phenylephrine HCl 30 mg/ (Sodium Chloride) 253 mls @ 10.12 mls/hr IV .Q24H PRN ; Protocol; 20 MCG/MIN PRN Reason: TITRATE PER MD ORDER Last Titration: 07/02/17 06:00 Dose: 0 mcg/min, 0 mls/hr Norepinephrine Bitartrate 4 mg (/ Sodium Chloride) 254 mls @ 15.24 mls/hr IV [id number] PRN; Protocol; 4 MCG/MIN PRN Reason: TITRATE PER MD ORDER Last Admin: 07/02/17 06:28 Dose: 10 mcg/min, 38.1 mls/hr Potassium Chloride (Potassium Chloride 20 Meq/100 Ml) 20 meq in 100 mls @ 50 mls/hr IVPB ONCE ONE Stop: 07/02/17 10:05 Last Admin: 07/02/17 08:57 Dose: 50 mls/hr Losartan Potassium (Cozaar) 25 mg PO DAILY [facility] Last Admin: 06/28/17 10:02 Dose: Not Given Methimazole (Tapazole) 5 mg PO DAILY [facility] Last Admin: 07/01/17 09:43 Dose: 5 mg Methylprednisolone (Solu-Medrol) 40 mg IVP Q4 PRN PRN Reason: Other Last Admin: 06/29/17 01:26 Dose: 40 mg Metoprolol Succinate (Toprol Xl) 25 mg PO DAILY [facility] Last Admin: 06/24/17 11:19 Dose: 25 mg Multivitamins (Hexavitamin) 1 tab PO DAILY [facility] Last Admin: 07/01/17 09:42 Dose: 1 tab Vancomycin HCl (Vancocin (Oral Or Rectal Use)) 250 mg PO QID [facility] Last Admin: 07/01/17 21:40 Dose: 250 mg - Labs Labs: 07/02/17 08:41 07/02/17 00:03 PT 18.2 SECONDS (9.7-12.2) H 06/27/17 11:09 INR 1.6 06/27/17 11:09 APTT 34 SECONDS (21-34) 06/15/17 13:26 - Constitutional Appears: No Acute Distress - Eye Exam Eye Exam: Normal appearance - ENT Exam ENT Exam: Mucous Membranes Moist - Neck Exam Neck Exam: Full ROM. absent: Lymphadenopathy, Normal Inspection - Respiratory Exam Respiratory Exam: Decreased Breath Sounds, Rhonchi, Wheezes. absent: Rales - Cardiovascular Exam Cardiovascular Exam: REGULAR RHYTHM, +S1, +S2. absent: Gallop, JVD - GI/Abdominal Exam GI & Abdominal Exam: Soft. absent: Tenderness, Mass - Extremities Exam Extremities Exam: Full ROM, Normal Capillary Refill, Pedal Edema. absent: Joint Swelling Assessment and Plan - Assessment and Plan (Free Text) Assessment: HTN, Recent PE, Myelodysplasia w/ anemia Septic shock ? etiology of infection Supportive care/ On pressure Discuss prognosis
--- NOTE | 2017-07-02 09:14 | RAD ---
Chest x-ray single frontal view History: Congestive heart failure. Comparison: 07/01/2017 Findings: Lines and tubes in stable position. Prominent diffuse increased interstitial lung markings which may represent underlying infiltrate and or edema with superimposed possible fibrotic changes. Clinical correlation. Dense consolidative changes at the left lung base with small to moderate left and small right pleural effusion. Right hilar prominence. Tortuous aorta. Calcification at the aortic knob. Cardiomegaly. Degenerative changes in the spine and shoulders. Impression: Lines and tubes in stable position. Prominent diffuse increased interstitial lung markings which may represent underlying infiltrate and or edema with superimposed possible fibrotic changes. Clinical correlation. Dense consolidative changes at the left lung base with small to moderate left and small right pleural effusion. Right hilar prominence. Tortuous aorta. Calcification at the aortic knob. Cardiomegaly.
[2017-07-02 09:17] LABS: ALB/GLOB RATIO 0.7 (1.0-2.1); ALT/SGPT 33 U/L (9-52); AST/SGOT 63 U/L (14-36); BLOOD UREA NITROGEN 19 mg/dL (7-17); CALCIUM 7.4 mg/dl (8.6-10.4); GFR AFRICAN-AMERICAN > 60; GFR NON-AFRICAN AMERICAN > 60; MAGNESIUM 1.8 mg/dL (1.6-2.3)
[2017-07-02 09:28] LABS: BANDS 53 % (0-2); LYMPHOCYTE 3 % (20-40); NEUTROPHIL 44 % (50-75); TOTAL CELLS COUNTED 100
[2017-07-02 09:29] LABS: ANISOCYTOSIS SLIGHT; BURR CELLS SLIGHT; HYPOCHROMIC SLIGHT; OVALOCYTES SLIGHT; PLATELET ESTIMATE NORMAL (NORMAL); POLYCHROMIC SLIGHT; SCHISTOCYTES SLIGHT
[2017-07-02] MEDS: Fluconazole IV 200mg/100 ml NS 100 ML IVPB SCH (11:26)
[2017-07-02] MEDS: Digoxin 500 mcg/2ml (0.5 mg/2ml) Inj IVP SCH ×2 (11:26→21:12)
[2017-07-02] MEDS: Cefepime IV 1 gm in Dextrose 1 GM/50 ML BAG IVPB SCH ×3 (11:28→23:45)
[2017-07-02] MEDS: Multiple Vitamins Tab PO SCH (11:28)
[2017-07-02] MEDS: methIMAzole 5 MG TAB PO SCH (11:30)
[2017-07-02] MEDS: Vancomycin 125 MG/5 ML SOLN (ORAL/RECTAL) PO SCH ×4 (11:53→21:12)
--- NOTE | 2017-07-02 17:58 | CP.PCM.PN ---
Subjective - Date & Time of Evaluation Date of Evaluation: 07/01/17 Time of Evaluation: 07:30 - Subjective Subjective: Pt transferred to ICU for Afib w/ RVR Pt is dyspneic Multiple etiology of SOB ie CHF, Sepsis, Colitis Objective - Vital Signs/Intake and Output Vital Signs (last 24 hours): Temp Pulse Resp BP Pulse Ox 97.2 F L 99 H 23 109/65 100 07/02/17 16:00 07/02/17 17:22 07/02/17 17:22 07/02/17 17:22 07/02/17 17:22 Intake and Output: 07/02/17 07/02/17 06:59 18:59 Intake Total 3073.0 812.1 Output Total 1 Balance 3073.0 811.1 - Medications Medications: Current Medications Acetaminophen (Tylenol 325mg Tab) 650 mg PO Q4 PRN PRN Reason: blood transfusion Last Admin: 07/01/17 09:55 Dose: 650 mg Albuterol/Ipratropium (Duoneb 3 Mg/0.5 Mg (3 Ml) Ud) 3 ml INH RQ6 [facility] Last Admin: 07/02/17 14:27 Dose: Not Given Apixaban (Eliquis) 5 mg PO BID [facility] Last Admin: 06/24/17 11:18 Dose: 5 mg Aspirin (Aspirin Chewable) 81 mg PO DAILY [facility] Last Admin: 06/24/17 11:18 Dose: 81 mg Dicyclomine HCl (Bentyl) 10 mg PO BID [facility] Last Admin: 07/02/17 11:31 Dose: 10 mg Digoxin (Lanoxin) 0.25 mg IVP Q12 [facility] Stop: 07/03/17 23:59 Last Admin: 07/02/17 11:26 Dose: 0.25 mg Diltiazem HCl (Cardizem) 30 mg PO QID [facility] Last Admin: 07/02/17 17:27 Dose: Not Given Furosemide (Lasix) 20 mg IVP ONCE PRN PRN Reason: before transfusion Last Admin: 06/29/17 01:27 Dose: 20 mg Furosemide (Lasix) 20 mg PO BID [facility] Last Admin: 07/02/17 11:27 Dose: 20 mg Guaifenesin/Dextromethorphan (Robitussin Dm) 5 ml PO Q6H PRN PRN Reason: Cough Heparin Sodium (Porcine) (Heparin) 5,000 units SC Q8H [facility] Last Admin: 07/02/17 11:31 Dose: 5,000 units Metronidazole (Flagyl) 500 mg in 100 mls @ 100 mls/hr IVPB Q8 [facility] Last Admin: 07/02/17 13:12 Dose: 100 mls/hr Fluconazole (Diflucan Iv 200 Mg/100 Ml Ns) 100 mls @ 100 mls/hr IVPB DAILY [facility] Last Admin: 07/02/17 11:26 Dose: 100 mls/hr Cefepime HCl (Maxipime Iv 1 Gm Premix) 1 gm in 50 mls @ 100 mls/hr IVPB Q12H [facility] Last Admin: 07/02/17 11:28 Dose: 100 mls/hr Phenylephrine HCl 30 mg/ (Sodium Chloride) 253 mls @ 10.12 mls/hr IV .Q24H PRN ; Protocol; 20 MCG/MIN PRN Reason: TITRATE PER MD ORDER Last Titration: 07/02/17 06:00 Dose: 0 mcg/min, 0 mls/hr Norepinephrine Bitartrate 4 mg (/ Sodium Chloride) 254 mls @ 15.24 mls/hr IV .[id number] PRN; Protocol; 4 MCG/MIN PRN Reason: TITRATE PER MD ORDER Last Admin: 07/02/17 15:15 Dose: 6 mcg/min, 22.86 mls/hr Losartan Potassium (Cozaar) 25 mg PO DAILY [facility] Last Admin: 06/28/17 10:02 Dose: Not Given Methimazole (Tapazole) 5 mg PO DAILY [facility] Last Admin: 07/02/17 11:30 Dose: 5 mg Methylprednisolone (Solu-Medrol) 40 mg IVP Q4 PRN PRN Reason: Other Last Admin: 06/29/17 01:26 Dose: 40 mg Metoprolol Succinate (Toprol Xl) 25 mg PO DAILY [facility] Last Admin: 06/24/17 11:19 Dose: 25 mg Multivitamins (Hexavitamin) 1 tab PO DAILY [facility] Last Admin: 07/02/17 11:28 Dose: 1 tab Vancomycin HCl (Vancocin (Oral Or Rectal Use)) 250 mg PO QID [facility] Last Admin: 07/02/17 13:12 Dose: 250 mg - Labs Labs: 07/02/17 08:41 07/02/17 08:41 PT 18.2 SECONDS (9.7-12.2) H 06/27/17 11:09 INR 1.6 06/27/17 11:09 APTT 34 SECONDS (21-34) 06/15/17 13:26 - Constitutional Appears: Toxic - Head Exam Head Exam: NORMAL INSPECTION - Eye Exam Eye Exam: absent: Scleral icterus - Respiratory Exam Respiratory Exam: Decreased Breath Sounds - Cardiovascular Exam Cardiovascular Exam: Tachycardia, Irregular Rhythm Additional comments: Sepsis Afib w/ RVR CHF CAD MDS w/ severe anemia - GI/Abdominal Exam GI & Abdominal Exam: Soft. absent: Tenderness - Extremities Exam Extremities Exam: Pedal Edema - Neurological Exam Neurological Exam: Altered Assessment and Plan - Assessment and Plan (Free Text) Assessment: Sepsis Afib CAD CHF MDS w/ anemia Plan: Cont Abtx Control HR Transfuse as needed PROGNOSIS GUARDED
--- NOTE | 2017-07-02 18:11 | CP.PCM.PN ---
Subjective - Date & Time of Evaluation Date of Evaluation: 06/30/17 Time of Evaluation: 08:10 - Subjective Subjective: s/p rapid response Objective - Vital Signs/Intake and Output Vital Signs (last 24 hours): Temp Pulse Resp BP Pulse Ox 97.2 F L 93 H 24 107/64 100 07/02/17 16:00 07/02/17 18:00 07/02/17 18:00 07/02/17 18:00 07/02/17 18:00 Intake and Output: 07/02/17 07/02/17 06:59 18:59 Intake Total 3073.0 834.7 Output Total 2 Balance 3073.0 832.7 - Medications Medications: Current Medications Acetaminophen (Tylenol 325mg Tab) 650 mg PO Q4 PRN PRN Reason: blood transfusion Last Admin: 07/01/17 09:55 Dose: 650 mg Albuterol/Ipratropium (Duoneb 3 Mg/0.5 Mg (3 Ml) Ud) 3 ml INH RQ6 [facility] Last Admin: 07/02/17 14:27 Dose: Not Given Apixaban (Eliquis) 5 mg PO BID [facility] Last Admin: 06/24/17 11:18 Dose: 5 mg Aspirin (Aspirin Chewable) 81 mg PO DAILY [facility] Last Admin: 06/24/17 11:18 Dose: 81 mg Dicyclomine HCl (Bentyl) 10 mg PO BID [facility] Last Admin: 07/02/17 17:59 Dose: 10 mg Digoxin (Lanoxin) 0.25 mg IVP Q12 [facility] Stop: 07/03/17 23:59 Last Admin: 07/02/17 11:26 Dose: 0.25 mg Diltiazem HCl (Cardizem) 30 mg PO QID [facility] Last Admin: 07/02/17 17:27 Dose: Not Given Furosemide (Lasix) 20 mg IVP ONCE PRN PRN Reason: before transfusion Last Admin: 06/29/17 01:27 Dose: 20 mg Furosemide (Lasix) 20 mg PO BID [facility] Last Admin: 07/02/17 18:00 Dose: 20 mg Guaifenesin/Dextromethorphan (Robitussin Dm) 5 ml PO Q6H PRN PRN Reason: Cough Heparin Sodium (Porcine) (Heparin) 5,000 units SC Q8H [facility] Last Admin: 07/02/17 17:59 Dose: 5,000 units Metronidazole (Flagyl) 500 mg in 100 mls @ 100 mls/hr IVPB Q8 [facility] Last Admin: 07/02/17 13:12 Dose: 100 mls/hr Fluconazole (Diflucan Iv 200 Mg/100 Ml Ns) 100 mls @ 100 mls/hr IVPB DAILY [facility] Last Admin: 07/02/17 11:26 Dose: 100 mls/hr Cefepime HCl (Maxipime Iv 1 Gm Premix) 1 gm in 50 mls @ 100 mls/hr IVPB Q12H [facility] Last Admin: 07/02/17 11:28 Dose: 100 mls/hr Phenylephrine HCl 30 mg/ (Sodium Chloride) 253 mls @ 10.12 mls/hr IV .Q24H PRN ; Protocol; 20 MCG/MIN PRN Reason: TITRATE PER MD ORDER Last Titration: 07/02/17 06:00 Dose: 0 mcg/min, 0 mls/hr Norepinephrine Bitartrate 4 mg (/ Sodium Chloride) 254 mls @ 15.24 mls/hr IV .[id number] PRN; Protocol; 4 MCG/MIN PRN Reason: TITRATE PER MD ORDER Last Admin: 07/02/17 15:15 Dose: 6 mcg/min, 22.86 mls/hr Losartan Potassium (Cozaar) 25 mg PO DAILY [facility] Last Admin: 06/28/17 10:02 Dose: Not Given Methimazole (Tapazole) 5 mg PO DAILY [facility] Last Admin: 07/02/17 11:30 Dose: 5 mg Methylprednisolone (Solu-Medrol) 40 mg IVP Q4 PRN PRN Reason: Other Last Admin: 06/29/17 01:26 Dose: 40 mg Metoprolol Succinate (Toprol Xl) 25 mg PO DAILY [facility] Last Admin: 06/24/17 11:19 Dose: 25 mg Multivitamins (Hexavitamin) 1 tab PO DAILY [facility] Last Admin: 07/02/17 11:28 Dose: 1 tab Vancomycin HCl (Vancocin (Oral Or Rectal Use)) 250 mg PO QID [facility] Last Admin: 07/02/17 18:01 Dose: 250 mg - Labs Labs: 07/02/17 08:41 07/02/17 08:41 PT 18.2 SECONDS (9.7-12.2) H 06/27/17 11:09 INR 1.6 06/27/17 11:09 APTT 34 SECONDS (21-34) 06/15/17 13:26 Assessment and Plan - Assessment and Plan (Free Text) Assessment: CHF Afib CAD Colitis ?Sepsis Plan: Cont Abtx Anticoagulation Bipap as needed Poor Prognosis
--- NOTE | 2017-07-02 18:26 | CP.CCUPN ---
<Albert Bryan - Last Filed: 07/02/17 18:28> CCU Subjective - Physician Review Events Since Last Encounter (Free Text): 07/02/17 18:24 Patient seen and examined at bedside. Per nursing no acute events occurred overnight. Critical Care Time Spent (in minutes): 45 CCU Objective - Vital Signs / Intake & Output Vital Signs (Last 4 hours): Vital Signs Temp Pulse Resp BP Pulse Ox 07/02/17 18:00 93 H 24 107/64 100 07/02/17 17:53 96 H 21 107/64 100 07/02/17 17:22 99 H 23 109/65 100 07/02/17 17:00 100 H 23 100 07/02/17 16:53 93 H 19 110/59 L 100 07/02/17 16:23 100 H 23 113/63 100 07/02/17 16:00 97.2 F L 93 H 24 100 07/02/17 15:53 99 H 18 117/64 100 07/02/17 15:22 97 H 22 108/66 100 07/02/17 15:15 104/69 07/02/17 15:00 89 22 100 07/02/17 14:53 81 20 104/69 100 Intake and Output (Last 8hrs): Intake & Output 07/02/17 07/02/17 07/02/17 06:59 14:59 22:59 Intake Total 2810.0 744.3 90.4 Output Total 2 Balance 2810.0 744.3 88.4 Weight 147 lb 6.4 oz Intake: IV 760 254 Intake, IV Amount 1725.0 490.3 90.4 Right Distal Port 450 202.8 90.4 Subclavian Right Medial Port 225.0 287.5 Right Proximal Port 1050 Subclavian Blood Product 325 Red Blood Cells Cpd As1 325 Lr Unit [id number] Output: Urine/Stool Mix 2 Other: # Voids Urine, Voided 1 1 # Bowel Movements 1 - Physical Exam Head: Positive for: Atraumatic, Normocephalic Pupils: Positive for: PERRL Extroacular Muscles: Positive for: EOMI Conjunctiva: Positive for: Normal Mouth: Positive for: Moist Mucous Membranes Respiratory/Chest: Positive for: [place] Cardiovascular: Positive for: Normal S1, S2 Abdomen: Positive for: Normal Bowel Sounds - Medications Active Medications: Active Medications Generic Name Dose Route Start Last Admin Trade Name Freq PRN Reason Stop Dose Admin Acetaminophen 650 mg 06/28/17 13:35 07/01/17 09:55 Tylenol 325mg Tab PO 650 mg Q4 PRN Administration blood transfusion Albuterol/Ipratropium 3 ml 06/30/17 08:00 07/02/17 14:27 Duoneb 3 Mg/0.5 Mg (3 Ml) Ud INH Not Given RQ6 VARINDER Apixaban 5 mg 06/16/17 10:00 06/24/17 11:18 Eliquis PO 5 mg BID VARINDER Administration Aspirin 81 mg 06/16/17 10:00 06/24/17 11:18 Aspirin Chewable PO 81 mg DAILY VARINDER Administration Dicyclomine HCl 10 mg 06/21/17 10:00 07/02/17 17:59 Bentyl PO 10 mg BID VARINDER Administration Digoxin 0.25 mg 07/01/17 10:00 07/02/17 11:26 Lanoxin IVP 07/03/17 23:59 0.25 mg Q12 VARINDER Administration Diltiazem HCl 30 mg 07/01/17 10:00 07/02/17 17:27 Cardizem PO Not Given QID VARINDER Furosemide 20 mg 06/28/17 15:22 06/29/17 01:27 Lasix IVP 20 mg ONCE PRN Administration before transfusion Furosemide 20 mg 06/30/17 13:28 07/02/17 18:00 Lasix PO 20 mg BID VARINDER Administration Guaifenesin/Dextromethorphan 5 ml 07/01/17 21:54 Robitussin Dm PO Q6H PRN Cough Heparin Sodium (Porcine) 5,000 units 06/30/17 18:00 07/02/17 17:59 Heparin SC 5,000 units Q8H VARINDER Administration Metronidazole 500 mg in 100 mls @ 100 mls/hr 06/22/17 15:00 07/02/17 13:12 Flagyl IVPB 100 mls/hr Q8 VARINDER Administration Fluconazole 100 mls @ 100 mls/hr 06/25/17 16:00 07/02/17 11:26 Diflucan Iv 200 Mg/100 Ml Ns IVPB 100 mls/hr DAILY VARINDER Administration Cefepime HCl 1 gm in 50 mls @ 100 mls/hr 06/27/17 12:00 07/02/17 11:28 Maxipime Iv 1 Gm Premix IVPB 100 mls/hr Q12H VARINDER Administration Phenylephrine HCl 30 mg/ 253 mls @ 10.12 mls/hr 07/01/17 17:32 07/02/17 06:00 Sodium Chloride IV 0 mcg/min .Q24H PRN 0 mls/hr TITRATE PER MD ORDER Titration Protocol 20 MCG/MIN Norepinephrine Bitartrate 4 mg 254 mls @ 15.24 mls/hr 07/01/17 23:29 15:15 / Sodium Chloride IV 6 mcg/min .[id number] PRN 22.86 mls/hr TITRATE PER MD ORDER Administration Protocol 4 MCG/MIN Losartan Potassium 25 mg 06/17/17 21:33 06/28/17 10:02 Cozaar PO Not Given DAILY VARINDER Methimazole 5 mg 06/16/17 10:00 07/02/17 11:30 Tapazole PO 5 mg DAILY VARINDER Administration Methylprednisolone 40 mg 06/28/17 13:38 06/29/17 01:26 Solu-Medrol IVP 40 mg Q4 PRN Administration Other Metoprolol Succinate 25 mg 06/23/17 10:00 06/24/17 11:19 Toprol Xl PO 25 mg DAILY VARINDER Administration Multivitamins 1 tab 06/16/17 10:00 07/02/17 11:28 Hexavitamin PO 1 tab DAILY VARINDER Administration Vancomycin HCl 250 mg 06/19/17 10:00 07/02/17 18:01 Vancocin (Oral Or Rectal Use) PO 250 mg QID VARINDER Administration - Patient Studies Lab Studies: Microbiology Studies 07/01/17 14:00 Blood Culture - Preliminary Blood-Venous NO GROWTH AFTER 24 HOURS 07/01/17 13:30 Blood Culture - Preliminary Blood-Venous NO GROWTH AFTER 24 HOURS 06/30/17 Unknown MRSA Culture - Final Naris MRSA NOT DETECTED 06/27/17 10:52 Blood Culture - Final Blood-Venous NO GROWTH AFTER 5 DAYS Gram Stain - Final TEST NOT PERFORMED 06/27/17 10:52 Blood Culture - Final Blood-Venous NO GROWTH AFTER 5 DAYS Gram Stain - Final TEST NOT PERFORMED Lab Studies 07/02/17 07/02/17 07/02/17 Range/Units 08:41 08:41 05:01 WBC 21.4 H (4.8-10.8) K/uL RBC 3.07 L (3.80-5.20) Mil/uL Hgb 8.7 L (11.0-16.0) g/dL Hct 26.6 L (34.0-47.0) % MCV 86.4 (81.0-99.0) fL MCH 28.3 (27.0-31.0) pg MCHC 32.8 L (33.0-37.0) g/dL RDW 16.1 H (11.5-14.5) % Plt Count 159 (130-400) K/uL MPV 9.8 (7.2-11.7) fL Neut % (Auto) 91.7 H (50.0-75.0) % Lymph % (Auto) 2.4 L (20.0-40.0) % [place] % (Auto) 0.7 (0.0-10.0) % Eos % (Auto) 5.0 H (0.0-4.0) % Baso % (Auto) 0.2 (0.0-2.0) % Neut # (Auto) 19.7 H (1.8-7.0) K/uL Lymph # (Auto) 0.5 L (1.0-4.3) K/uL [place] # (Auto) 0.1 (0.0-0.8) K/uL Eos # (Auto) 1.1 H (0.0-0.7) K/uL Baso # (Auto) 0.0 (0.0-0.2) K/uL Neutrophils % (Manual) 44 L (50-75) % Band Neutrophils % 53 H* (0-2) % Lymphocytes % (Manual) 3 L (20-40) % Monocytes % (Manual) TEST NOT PERFORMED (0-10) % Platelet Estimate Normal (NORMAL) Polychromasia Slight Hypochromasia (manual) Slight Poikilocytosis (manual Anisocytosis (manual) Slight Ovalocytes Slight Eli Cells Slight Schistocytes Slight pO2 (30-55) mm/Hg VBG pH (7.32-7.43) VBG pCO2 (40-60) mmHg VBG HCO3 mmol/L VBG Total CO2 (22-28) mmol/L VBG O2 Sat (Calc) (40-65) % VBG Base Excess (0.0-2.0) mmol/L VBG Potassium (3.6-5.2) mmol/L Sodium 129 L (132-148) mmol/l Chloride 99 (98-107) mmol/L Glucose (65-105) mg/dl Lactate (0.7-2.1) mmol/L Crit Value Called To Crit Value Called By Crit Value Read Back Blood Gas Notified Time Potassium 3.8 (3.6-5.2) mmol/L Carbon Dioxide 19 L (22-30) mmol/L Anion Gap 14 (10-20) BUN 19 H (7-17) mg/dL Creatinine 0.8 (0.7-1.2) mg/dL Est GFR ( Amer) > 60 Est GFR (Non-Af Amer) > 60 Random Glucose 92 (65-105) mg/dL Lactic Acid 5.1 H* (0.7-2.1) mmol/L Calcium 7.4 L (8.6-10.4) mg/dl Phosphorus 4.0 (2.5-4.5) mg/dL Magnesium 1.8 (1.6-2.3) mg/dL Total Bilirubin 1.4 H (0.2-1.3) mg/dL AST 63 H D (14-36) U/L ALT 33 (9-52) U/L Alkaline Phosphatase 70 (38-126) U/L Total Protein 4.7 L (6.3-8.3) g/dL Albumin 2.0 L (3.5-5.0) g/dL Globulin 2.7 (2.2-3.9) gm/dL Albumin/Globulin Ratio 0.7 L (1.0-2.1) Venous Blood Potassium (3.6-5.2) mmol/L C. difficile Ag & Toxin (NEGATIVE) Blood Type Antibody Screen 07/02/17 07/02/17 07/02/17 Range/Units 03:22 03:14 00:03 WBC (4.8-10.8) K/uL RBC (3.80-5.20) Mil/uL Hgb (11.0-16.0) g/dL Hct (34.0-47.0) % MCV (81.0-99.0) fL MCH (27.0-31.0) pg MCHC (33.0-37.0) g/dL RDW (11.5-14.5) % Plt Count (130-400) K/uL MPV (7.2-11.7) fL Neut % (Auto) (50.0-75.0) % Lymph % (Auto) (20.0-40.0) % [place] % (Auto) (0.0-10.0) % Eos % (Auto) (0.0-4.0) % Baso % (Auto) (0.0-2.0) % Neut # (Auto) (1.8-7.0) K/uL Lymph # (Auto) (1.0-4.3) K/uL [place] # (Auto) (0.0-0.8) K/uL Eos # (Auto) (0.0-0.7) K/uL Baso # (Auto) (0.0-0.2) K/uL Neutrophils % (Manual) (50-75) % Band Neutrophils % (0-2) % Lymphocytes % (Manual) (20-40) % Monocytes % (Manual) (0-10) % Platelet Estimate (NORMAL) Polychromasia Hypochromasia (manual) Poikilocytosis (manual Anisocytosis (manual) Ovalocytes Eli Cells Schistocytes pO2 (30-55) mm/Hg VBG pH (7.32-7.43) VBG pCO2 (40-60) mmHg VBG HCO3 mmol/L VBG Total CO2 (22-28) mmol/L VBG O2 Sat (Calc) (40-65) % VBG Base Excess (0.0-2.0) mmol/L VBG Potassium (3.6-5.2) mmol/L Sodium 128 L (132-148) mmol/l Chloride 96 L (98-107) mmol/L Glucose (65-105) mg/dl Lactate (0.7-2.1) mmol/L Crit Value Called To Crit Value Called By Crit Value Read Back Blood Gas Notified Time Potassium 3.4 L (3.6-5.2) mmol/L Carbon Dioxide 23 (22-30) mmol/L Anion Gap 13 (10-20) BUN 18 H (7-17) mg/dL Creatinine 0.9 (0.7-1.2) mg/dL Est GFR ( Amer) > 60 Est GFR (Non-Af Amer) > 60 Random Glucose 56 L (65-105) mg/dL Lactic Acid (0.7-2.1) mmol/L Calcium 7.5 L (8.6-10.4) mg/dl Phosphorus (2.5-4.5) mg/dL Magnesium (1.6-2.3) mg/dL Total Bilirubin (0.2-1.3) mg/dL AST (14-36) U/L ALT (9-52) U/L Alkaline Phosphatase (38-126) U/L Total Protein (6.3-8.3) g/dL Albumin (3.5-5.0) g/dL Globulin (2.2-3.9) gm/dL Albumin/Globulin Ratio (1.0-2.1) Venous Blood Potassium (3.6-5.2) mmol/L C. difficile Ag & Toxin Negative (NEGATIVE) Blood Type O POSITIVE Antibody Screen Negative 07/02/17 07/01/17 Range/Units 00:03 23:50 WBC 28.9 H D (4.8-10.8) K/uL RBC 2.68 L (3.80-5.20) Mil/uL Hgb 7.7 L (11.0-16.0) g/dL Hct 23.3 L (34.0-47.0) % MCV 86.9 (81.0-99.0) fL MCH 28.7 (27.0-31.0) pg MCHC 33.0 (33.0-37.0) g/dL RDW 16.0 H (11.5-14.5) % Plt Count 181 (130-400) K/uL MPV 10.0 (7.2-11.7) fL Neut % (Auto) 96.4 H (50.0-75.0) % Lymph % (Auto) 2.3 L (20.0-40.0) % [place] % (Auto) 0.8 (0.0-10.0) % Eos % (Auto) 0.2 (0.0-4.0) % Baso % (Auto) 0.3 (0.0-2.0) % Neut # (Auto) 27.9 H (1.8-7.0) K/uL Lymph # (Auto) 0.7 L (1.0-4.3) K/uL [place] # (Auto) 0.2 (0.0-0.8) K/uL Eos # (Auto) 0.1 (0.0-0.7) K/uL Baso # (Auto) 0.1 (0.0-0.2) K/uL Neutrophils % (Manual) 66 (50-75) % Band Neutrophils % 29 H* (0-2) % Lymphocytes % (Manual) 2 L (20-40) % Monocytes % (Manual) 3 (0-10) % Platelet Estimate Normal (NORMAL) Polychromasia Hypochromasia (manual) Slight Poikilocytosis (manual Moderate Anisocytosis (manual) Moderate Ovalocytes Eli Cells Schistocytes pO2 37 (30-55) mm/Hg VBG pH 7.37 (7.32-7.43) VBG pCO2 37 L (40-60) mmHg VBG HCO3 21.5 mmol/L VBG Total CO2 22.5 (22-28) mmol/L VBG O2 Sat (Calc) 74.1 H (40-65) % VBG Base Excess -3.4 L (0.0-2.0) mmol/L VBG Potassium 3.3 L (3.6-5.2) mmol/L Sodium 133.0 (132-148) mmol/l Chloride 100.0 (98-107) mmol/L Glucose 60 L (65-105) mg/dl Lactate 4.7 H* (0.7-2.1) mmol/L Crit Value Called To Pablo cartagena/rn Crit Value Called By Bravo robert/rt Crit Value Read Back Y Blood Gas Notified Time 2353 Potassium (3.6-5.2) mmol/L Carbon Dioxide (22-30) mmol/L Anion Gap (10-20) BUN (7-17) mg/dL Creatinine (0.7-1.2) mg/dL Est GFR ( Amer) Est GFR (Non-Af Amer) Random Glucose (65-105) mg/dL Lactic Acid (0.7-2.1) mmol/L Calcium (8.6-10.4) mg/dl Phosphorus (2.5-4.5) mg/dL Magnesium (1.6-2.3) mg/dL Total Bilirubin (0.2-1.3) mg/dL AST (14-36) U/L ALT (9-52) U/L Alkaline Phosphatase (38-126) U/L Total Protein (6.3-8.3) g/dL Albumin (3.5-5.0) g/dL Globulin (2.2-3.9) gm/dL Albumin/Globulin Ratio (1.0-2.1) Venous Blood Potassium 3.3 L (3.6-5.2) mmol/L C. difficile Ag & Toxin (NEGATIVE) Blood Type Antibody Screen Laboratory Results - last 24 hr 07/01/17 07/02/17 07/02/17 23:50 00:03 00:03 WBC 28.9 H D RBC 2.68 L Hgb 7.7 L Hct 23.3 L MCV 86.9 MCH 28.7 MCHC 33.0 RDW 16.0 H Plt Count 181 MPV 10.0 Neut % (Auto) 96.4 H Lymph % (Auto) 2.3 L [place] % (Auto) 0.8 Eos % (Auto) 0.2 Baso % (Auto) 0.3 Neut # (Auto) 27.9 H Lymph # (Auto) 0.7 L [place] # (Auto) 0.2 Eos # (Auto) 0.1 Baso # (Auto) 0.1 Neutrophils % (Manual) 66 Band Neutrophils % 29 H* Lymphocytes % (Manual) 2 L Monocytes % (Manual) 3 Platelet Estimate Normal Polychromasia Hypochromasia (manual) Slight Poikilocytosis (manual Moderate Anisocytosis (manual) Moderate Ovalocytes [place] Cells Schistocytes pO2 37 VBG pH 7.37 VBG pCO2 37 L VBG HCO3 21.5 VBG Total CO2 22.5 VBG O2 Sat (Calc) 74.1 H VBG Base Excess -3.4 L VBG Potassium 3.3 L Sodium 133.0 128 L Chloride 100.0 96 L Glucose 60 L Lactate 4.7 H* Crit Value Called To Pablo cartagena/rn Crit Value Called By Bravo robert/rt Crit Value Read Back Y Blood Gas Notified Time 2357 Potassium 3.4 L Carbon Dioxide 23 Anion Gap 13 BUN 18 H Creatinine 0.9 Est GFR ( Amer) > 60 Est GFR (Non-Af Amer) > 60 Random Glucose 56 L Lactic Acid Calcium 7.5 L Phosphorus Magnesium Total Bilirubin AST ALT Alkaline Phosphatase Total Protein Albumin Globulin Albumin/Globulin Ratio Venous Blood Potassium 3.3 L C. difficile Ag & Toxin Blood Type Antibody Screen 07/02/17 07/02/17 07/02/17 03:14 03:22 05:01 WBC RBC Hgb Hct MCV MCH MCHC RDW Plt Count MPV Neut % (Auto) Lymph % (Auto) [place] % (Auto) Eos % (Auto) Baso % (Auto) Neut # (Auto) Lymph # (Auto) [place] # (Auto) Eos # (Auto) Baso # (Auto) Neutrophils % (Manual) Band Neutrophils % Lymphocytes % (Manual) Monocytes % (Manual) Platelet Estimate Polychromasia Hypochromasia (manual) Poikilocytosis (manual Anisocytosis (manual) Ovalocytes [place] Cells Schistocytes pO2 VBG pH VBG pCO2 VBG HCO3 VBG Total CO2 VBG O2 Sat (Calc) VBG Base Excess VBG Potassium Sodium Chloride Glucose Lactate Crit Value Called To Crit Value Called By Crit Value Read Back Blood Gas Notified Time Potassium Carbon Dioxide Anion Gap BUN Creatinine Est GFR ( Amer) Est GFR (Non-Af Amer) Random Glucose Lactic Acid 5.1 H* Calcium Phosphorus Magnesium Total Bilirubin AST ALT Alkaline Phosphatase Total Protein Albumin Globulin Albumin/Globulin Ratio Venous Blood Potassium C. difficile Ag & Toxin Negative Blood Type O POSITIVE Antibody Screen Negative 07/02/17 07/02/17 08:41 08:41 WBC 21.4 H RBC 3.07 L Hgb 8.7 L Hct 26.6 L MCV 86.4 MCH 28.3 MCHC 32.8 L RDW 16.1 H Plt Count 159 MPV 9.8 Neut % (Auto) 91.7 H Lymph % (Auto) 2.4 L [place] % (Auto) 0.7 Eos % (Auto) 5.0 H Baso % (Auto) 0.2 Neut # (Auto) 19.7 H Lymph # (Auto) 0.5 L [place] # (Auto) 0.1 Eos # (Auto) 1.1 H Baso # (Auto) 0.0 Neutrophils % (Manual) 44 L Band Neutrophils % 53 H* Lymphocytes % (Manual) 3 L Monocytes % (Manual) TEST NOT PERFORMED Platelet Estimate Normal Polychromasia Slight Hypochromasia (manual) Slight Poikilocytosis (manual Anisocytosis (manual) Slight Ovalocytes Slight [place] Cells Slight Schistocytes Slight pO2 VBG pH VBG pCO2 VBG HCO3 VBG Total CO2 VBG O2 Sat (Calc) VBG Base Excess VBG Potassium Sodium 129 L Chloride 99 Glucose Lactate Crit Value Called To Crit Value Called By Crit Value Read Back Blood Gas Notified Time Potassium 3.8 Carbon Dioxide 19 L Anion Gap 14 BUN 19 H Creatinine 0.8 Est GFR ( Amer) > 60 Est GFR (Non-Af Amer) > 60 Random Glucose 92 Lactic Acid Calcium 7.4 L Phosphorus 4.0 Magnesium 1.8 Total Bilirubin 1.4 H AST 63 H D ALT 33 Alkaline Phosphatase 70 Total Protein 4.7 L Albumin 2.0 L Globulin 2.7 Albumin/Globulin Ratio 0.7 L Venous Blood Potassium C. difficile Ag & Toxin Blood Type Antibody Screen Review of Systems - EENT Eyes: absent: Blurred Vision, Discharge, Loss of Vision Nose/Mouth/Throat: absent: Nose Pain, Bleeding Gums, Halitosis, Odynophagia, Neck Pain - Breasts Breasts: absent: Pain - Cardiovascular Cardiovascular: absent: Chest Pain, Diaphoresis, Leg Edema, Palpitations - Respiratory Respiratory: absent: Cough, Dyspnea, Hemoptysis - Gastrointestinal Gastrointestinal: absent: Belching, Change in Stool Character, Hematochezia, Melena, Nausea, Vomiting - Musculoskeletal Musculoskeletal: absent: Arthralgias, Myalgias, Stiffness, Tingling - Integumentary Integumentary: absent: Alopecia, New Lesions, Swelling, Unusual Bruising - Neurological Neurological: absent: Dizziness, Numbness, Vertigo, Weakness - Endocrine Endocrine: absent: Polydipsia, Polyphagia, Polyuria Critical Care Progress Note - Nutrition Nutrition: Nutrition Category Date Time Status Heart Healthy Diet [DIET] Diets 06/27/17 Dinner Active Assessment/Plan - Assessment and Plan (Free Text) Assessment: 77 year old F with MDS, recent PE (04/2017), CAD, Afib, brought to ICU for shortness of breath. Plan: Infectious Disease: Sepsis - Colitis Infectious Disease consult w/ Dr Hernandez CT chest/abd/pelvix without IV contrast - Extensive wall thickening of the rectum lobe and distal sigmoid colon; correlate for colitis and/or proctitis. Additionally evidence of cecal and the left colonic wall thickening suspicious for colitis. Procalcitonin HIGH Flagyl 500mg IV TID Vancomycin 250mg PO QID Fluconazole 200mg IV QD Cefepime 1g IV BID Cardio: CAD, Afib, Diastolic CHF Cardiology consult w/ Dr Sosa * recent cardiac cath revealed RCA with large thrombus in the distal RCA. No angioplasty baloon or stent is big enough to open the obstructing thrombus. A decision was made as per Dr Skinner recommendation to treat the patient medically with antiplatelet and anticoagulation. Cardizem 30mg PO QID ProBNP - 5230 ECHO - Normal ECHO. LVSF normal. EF 60%. Venous dopplers LE - normal Pulm: Shortness of breath - COPD vs CHF? Pulm consult w/ Dr Joseph Ivan 3ml INH RQ6 Methylprednisolone 40mg IV Q4H PRN Lasix 20mg IV Once PRN Lasix 20mg PO BID GI: Positive stool occult GI consult w/ Dr Thurman * Since the EGD and colonoscopy were scheduled last week, Code Sepsis and Rapid Response have been called. I do not think she is stable for the GI workup at this time. Hematology: Anemia, MDS Heme consult w/ Dr Meyer s/p 2 units pRBC 06/28/17 Procrit [id number] SC TTS Methimazole 5mg PO QD Endo: DM, Chronic SIADH Apprise Counselor consult w/ Dr Raymundo Renal consult w/ Dr Tabor Neuro: Neurology consult w/ Sky Moncada PPx: Heparin 5000u SC TID Multivitamin <John Paul Ruiz S - Last Filed: 07/02/17 18:37> CCU Objective - Vital Signs / Intake & Output Vital Signs (Last 4 hours): Vital Signs Temp Pulse Resp BP Pulse Ox 07/02/17 18:00 93 H 24 107/64 100 07/02/17 17:53 96 H 21 107/64 100 07/02/17 17:22 99 H 23 109/65 100 07/02/17 17:00 100 H 23 100 07/02/17 16:53 93 H 19 110/59 L 100 07/02/17 16:23 100 H 23 113/63 100 07/02/17 16:00 97.2 F L 93 H 24 100 07/02/17 15:53 99 H 18 117/64 100 07/02/17 15:22 97 H 22 108/66 100 07/02/17 15:15 104/69 07/02/17 15:00 89 22 100 07/02/17 14:53 81 20 104/69 100 Intake and Output (Last 8hrs): Intake & Output 07/02/17 07/02/17 07/02/17 06:59 14:59 22:59 Intake Total 2810.0 744.3 90.4 Output Total 2 Balance 2810.0 744.3 88.4 Weight 147 lb 6.4 oz Intake: IV 760 254 Intake, IV Amount 1725.0 490.3 90.4 Right Distal Port 450 202.8 90.4 Subclavian Right Medial Port 225.0 287.5 Right Proximal Port 1050 Subclavian Blood Product 325 Red Blood Cells Cpd As1 325 Lr Unit [id number] Output: Urine/Stool Mix 2 Other: # Voids Urine, Voided 1 1 # Bowel Movements 1 - Medications Active Medications: Active Medications Generic Name Dose Route Start Last Admin Trade Name Freq PRN Reason Stop Dose Admin Acetaminophen 650 mg 06/28/17 13:35 07/01/17 09:55 Tylenol 325mg Tab PO 650 mg Q4 PRN Administration blood transfusion Albuterol/Ipratropium 3 ml 06/30/17 08:00 07/02/17 14:27 Duoneb 3 Mg/0.5 Mg (3 Ml) Ud INH Not Given RQ6 VARINDER Apixaban 5 mg 06/16/17 10:00 06/24/17 11:18 Eliquis PO 5 mg BID VARINDER Administration Aspirin 81 mg 06/16/17 10:00 06/24/17 11:18 Aspirin Chewable PO 81 mg DAILY VARINDER Administration Dicyclomine HCl 10 mg 06/21/17 10:00 07/02/17 17:59 Bentyl PO 10 mg BID VARINDER Administration Digoxin 0.25 mg 07/01/17 10:00 07/02/17 11:26 Lanoxin IVP 07/03/17 23:59 0.25 mg Q12 VARINDER Administration Diltiazem HCl 30 mg 07/01/17 10:00 07/02/17 17:27 Cardizem PO Not Given QID VARINDER Furosemide 20 mg 06/28/17 15:22 06/29/17 01:27 Lasix IVP 20 mg ONCE PRN Administration before transfusion Furosemide 20 mg 06/30/17 13:28 07/02/17 18:00 Lasix PO 20 mg BID VARINDER Administration Guaifenesin/Dextromethorphan 5 ml 07/01/17 21:54 Robitussin Dm PO Q6H PRN Cough Heparin Sodium (Porcine) 5,000 units 06/30/17 18:00 07/02/17 17:59 Heparin SC 5,000 units Q8H VARINDER Administration Metronidazole 500 mg in 100 mls @ 100 mls/hr 06/22/17 15:00 07/02/17 13:12 Flagyl IVPB 100 mls/hr Q8 VARINDER Administration Fluconazole 100 mls @ 100 mls/hr 06/25/17 16:00 07/02/17 11:26 Diflucan Iv 200 Mg/100 Ml Ns IVPB 100 mls/hr DAILY VARINDER Administration Cefepime HCl 1 gm in 50 mls @ 100 mls/hr 06/27/17 12:00 07/02/17 11:28 Maxipime Iv 1 Gm Premix IVPB 100 mls/hr Q12H VARINDER Administration Phenylephrine HCl 30 mg/ 253 mls @ 10.12 mls/hr 07/01/17 17:32 07/02/17 06:00 Sodium Chloride IV 0 mcg/min .Q24H PRN 0 mls/hr TITRATE PER MD ORDER Titration Protocol 20 MCG/MIN Norepinephrine Bitartrate 4 mg 254 mls @ 15.24 mls/hr 07/01/17 23:29 15:15 / Sodium Chloride IV 6 mcg/min .[id number] PRN 22.86 mls/hr TITRATE PER MD ORDER Administration Protocol 4 MCG/MIN Losartan Potassium 25 mg 06/17/17 21:33 06/28/17 10:02 Cozaar PO Not Given DAILY VARINDER Methimazole 5 mg 06/16/17 10:00 07/02/17 11:30 Tapazole PO 5 mg DAILY VARINDER Administration Methylprednisolone 40 mg 06/28/17 13:38 06/29/17 01:26 Solu-Medrol IVP 40 mg Q4 PRN Administration Other Metoprolol Succinate 25 mg 06/23/17 10:00 06/24/17 11:19 Toprol Xl PO 25 mg DAILY VARINDER Administration Multivitamins 1 tab 06/16/17 10:00 07/02/17 11:28 Hexavitamin PO 1 tab DAILY VARINDER Administration Vancomycin HCl 250 mg 06/19/17 10:00 07/02/17 18:01 Vancocin (Oral Or Rectal Use) PO 250 mg QID VARINDER Administration - Patient Studies Lab Studies: Microbiology Studies 07/01/17 14:00 Blood Culture - Preliminary Blood-Venous NO GROWTH AFTER 24 HOURS 07/01/17 13:30 Blood Culture - Preliminary Blood-Venous NO GROWTH AFTER 24 HOURS 06/30/17 Unknown MRSA Culture - Final Naris MRSA NOT DETECTED 06/27/17 10:52 Blood Culture - Final Blood-Venous NO GROWTH AFTER 5 DAYS Gram Stain - Final TEST NOT PERFORMED 06/27/17 10:52 Blood Culture - Final Blood-Venous NO GROWTH AFTER 5 DAYS Gram Stain - Final TEST NOT PERFORMED Lab Studies 07/02/17 07/02/17 07/02/17 Range/Units 08:41 08:41 05:01 WBC 21.4 H (4.8-10.8) K/uL RBC 3.07 L (3.80-5.20) Mil/uL Hgb 8.7 L (11.0-16.0) g/dL Hct 26.6 L (34.0-47.0) % MCV 86.4 (81.0-99.0) fL MCH 28.3 (27.0-31.0) pg MCHC 32.8 L (33.0-37.0) g/dL RDW 16.1 H (11.5-14.5) % Plt Count 159 (130-400) K/uL MPV 9.8 (7.2-11.7) fL Neut % (Auto) 91.7 H (50.0-75.0) % Lymph % (Auto) 2.4 L (20.0-40.0) % [place] % (Auto) 0.7 (0.0-10.0) % Eos % (Auto) 5.0 H (0.0-4.0) % Baso % (Auto) 0.2 (0.0-2.0) % Neut # (Auto) 19.7 H (1.8-7.0) K/uL Lymph # (Auto) 0.5 L (1.0-4.3) K/uL [place] # (Auto) 0.1 (0.0-0.8) K/uL Eos # (Auto) 1.1 H (0.0-0.7) K/uL Baso # (Auto) 0.0 (0.0-0.2) K/uL Neutrophils % (Manual) 44 L (50-75) % Band Neutrophils % 53 H* (0-2) % Lymphocytes % (Manual) 3 L (20-40) % Monocytes % (Manual) TEST NOT PERFORMED (0-10) % Platelet Estimate Normal (NORMAL) Polychromasia Slight Hypochromasia (manual) Slight Poikilocytosis (manual Anisocytosis (manual) Slight Ovalocytes Slight [place] Cells Slight Schistocytes Slight pO2 (30-55) mm/Hg VBG pH (7.32-7.43) VBG pCO2 (40-60) mmHg VBG HCO3 mmol/L VBG Total CO2 (22-28) mmol/L VBG O2 Sat (Calc) (40-65) % VBG Base Excess (0.0-2.0) mmol/L VBG Potassium (3.6-5.2) mmol/L Sodium 129 L (132-148) mmol/l Chloride 99 (98-107) mmol/L Glucose (65-105) mg/dl Lactate (0.7-2.1) mmol/L Crit Value Called To Crit Value Called By Crit Value Read Back Blood Gas Notified Time Potassium 3.8 (3.6-5.2) mmol/L Carbon Dioxide 19 L (22-30) mmol/L Anion Gap 14 (10-20) BUN 19 H (7-17) mg/dL Creatinine 0.8 (0.7-1.2) mg/dL Est GFR ( Amer) > 60 Est GFR (Non-Af Amer) > 60 Random Glucose 92 (65-105) mg/dL Lactic Acid 5.1 H* (0.7-2.1) mmol/L Calcium 7.4 L (8.6-10.4) mg/dl Phosphorus 4.0 (2.5-4.5) mg/dL Magnesium 1.8 (1.6-2.3) mg/dL Total Bilirubin 1.4 H (0.2-1.3) mg/dL AST 63 H D (14-36) U/L ALT 33 (9-52) U/L Alkaline Phosphatase 70 (38-126) U/L Total Protein 4.7 L (6.3-8.3) g/dL Albumin 2.0 L (3.5-5.0) g/dL Globulin 2.7 (2.2-3.9) gm/dL Albumin/Globulin Ratio 0.7 L (1.0-2.1) Venous Blood Potassium (3.6-5.2) mmol/L C. difficile Ag & Toxin (NEGATIVE) Blood Type Antibody Screen 07/02/17 07/02/17 07/02/17 Range/Units 03:22 03:14 00:03 WBC (4.8-10.8) K/uL RBC (3.80-5.20) Mil/uL Hgb (11.0-16.0) g/dL Hct (34.0-47.0) % MCV (81.0-99.0) fL MCH (27.0-31.0) pg MCHC (33.0-37.0) g/dL RDW (11.5-14.5) % Plt Count (130-400) K/uL MPV (7.2-11.7) fL Neut % (Auto) (50.0-75.0) % Lymph % (Auto) (20.0-40.0) % [place] % (Auto) (0.0-10.0) % Eos % (Auto) (0.0-4.0) % Baso % (Auto) (0.0-2.0) % Neut # (Auto) (1.8-7.0) K/uL Lymph # (Auto) (1.0-4.3) K/uL [place] # (Auto) (0.0-0.8) K/uL Eos # (Auto) (0.0-0.7) K/uL Baso # (Auto) (0.0-0.2) K/uL Neutrophils % (Manual) (50-75) % Band Neutrophils % (0-2) % Lymphocytes % (Manual) (20-40) % Monocytes % (Manual) (0-10) % Platelet Estimate (NORMAL) Polychromasia Hypochromasia (manual) Poikilocytosis (manual Anisocytosis (manual) Ovalocytes [place] Cells Schistocytes pO2 (30-55) mm/Hg VBG pH (7.32-7.43) VBG pCO2 (40-60) mmHg VBG HCO3 mmol/L VBG Total CO2 (22-28) mmol/L VBG O2 Sat (Calc) (40-65) % VBG Base Excess (0.0-2.0) mmol/L VBG Potassium (3.6-5.2) mmol/L Sodium 128 L (132-148) mmol/l Chloride 96 L (98-107) mmol/L Glucose (65-105) mg/dl Lactate (0.7-2.1) mmol/L Crit Value Called To Crit Value Called By Crit Value Read Back Blood Gas Notified Time Potassium 3.4 L (3.6-5.2) mmol/L Carbon Dioxide 23 (22-30) mmol/L Anion Gap 13 (10-20) BUN 18 H (7-17) mg/dL Creatinine 0.9 (0.7-1.2) mg/dL Est GFR ( Amer) > 60 Est GFR (Non-Af Amer) > 60 Random Glucose 56 L (65-105) mg/dL Lactic Acid (0.7-2.1) mmol/L Calcium 7.5 L (8.6-10.4) mg/dl Phosphorus (2.5-4.5) mg/dL Magnesium (1.6-2.3) mg/dL Total Bilirubin (0.2-1.3) mg/dL AST (14-36) U/L ALT (9-52) U/L Alkaline Phosphatase (38-126) U/L Total Protein (6.3-8.3) g/dL Albumin (3.5-5.0) g/dL Globulin (2.2-3.9) gm/dL Albumin/Globulin Ratio (1.0-2.1) Venous Blood Potassium (3.6-5.2) mmol/L C. difficile Ag & Toxin Negative (NEGATIVE) Blood Type O POSITIVE Antibody Screen Negative 07/02/17 07/01/17 Range/Units 00:03 23:50 WBC 28.9 H D (4.8-10.8) K/uL RBC 2.68 L (3.80-5.20) Mil/uL Hgb 7.7 L (11.0-16.0) g/dL Hct 23.3 L (34.0-47.0) % MCV 86.9 (81.0-99.0) fL MCH 28.7 (27.0-31.0) pg MCHC 33.0 (33.0-37.0) g/dL RDW 16.0 H (11.5-14.5) % Plt Count 181 (130-400) K/uL MPV 10.0 (7.2-11.7) fL Neut % (Auto) 96.4 H (50.0-75.0) % Lymph % (Auto) 2.3 L (20.0-40.0) % [place] % (Auto) 0.8 (0.0-10.0) % Eos % (Auto) 0.2 (0.0-4.0) % Baso % (Auto) 0.3 (0.0-2.0) % Neut # (Auto) 27.9 H (1.8-7.0) K/uL Lymph # (Auto) 0.7 L (1.0-4.3) K/uL [place] # (Auto) 0.2 (0.0-0.8) K/uL Eos # (Auto) 0.1 (0.0-0.7) K/uL Baso # (Auto) 0.1 (0.0-0.2) K/uL Neutrophils % (Manual) 66 (50-75) % Band Neutrophils % 29 H* (0-2) % Lymphocytes % (Manual) 2 L (20-40) % Monocytes % (Manual) 3 (0-10) % Platelet Estimate Normal (NORMAL) Polychromasia Hypochromasia (manual) Slight Poikilocytosis (manual Moderate Anisocytosis (manual) Moderate Ovalocytes [place] Cells Schistocytes pO2 37 (30-55) mm/Hg VBG pH 7.37 (7.32-7.43) VBG pCO2 37 L (40-60) mmHg VBG HCO3 21.5 mmol/L VBG Total CO2 22.5 (22-28) mmol/L VBG O2 Sat (Calc) 74.1 H (40-65) % VBG Base Excess -3.4 L (0.0-2.0) mmol/L VBG Potassium 3.3 L (3.6-5.2) mmol/L Sodium 133.0 (132-148) mmol/l Chloride 100.0 (98-107) mmol/L Glucose 60 L (65-105) mg/dl Lactate 4.7 H* (0.7-2.1) mmol/L Crit Value Called To Pablo cartagena/rn Crit Value Called By Bravo robert/rt Crit Value Read Back Y Blood Gas Notified Time 2357 Potassium (3.6-5.2) mmol/L Carbon Dioxide (22-30) mmol/L Anion Gap (10-20) BUN (7-17) mg/dL Creatinine (0.7-1.2) mg/dL Est GFR ( Amer) Est GFR (Non-Af Amer) Random Glucose (65-105) mg/dL Lactic Acid (0.7-2.1) mmol/L Calcium (8.6-10.4) mg/dl Phosphorus (2.5-4.5) mg/dL Magnesium (1.6-2.3) mg/dL Total Bilirubin (0.2-1.3) mg/dL AST (14-36) U/L ALT (9-52) U/L Alkaline Phosphatase (38-126) U/L Total Protein (6.3-8.3) g/dL Albumin (3.5-5.0) g/dL Globulin (2.2-3.9) gm/dL Albumin/Globulin Ratio (1.0-2.1) Venous Blood Potassium 3.3 L (3.6-5.2) mmol/L C. difficile Ag & Toxin (NEGATIVE) Blood Type Antibody Screen Laboratory Results - last 24 hr 07/01/17 07/02/17 07/02/17 23:50 00:03 00:03 WBC 28.9 H D RBC 2.68 L Hgb 7.7 L Hct 23.3 L MCV 86.9 MCH 28.7 MCHC 33.0 RDW 16.0 H Plt Count 181 MPV 10.0 Neut % (Auto) 96.4 H Lymph % (Auto) 2.3 L [place] % (Auto) 0.8 Eos % (Auto) 0.2 Baso % (Auto) 0.3 Neut # (Auto) 27.9 H Lymph # (Auto) 0.7 L [place] # (Auto) 0.2 Eos # (Auto) 0.1 Baso # (Auto) 0.1 Neutrophils % (Manual) 66 Band Neutrophils % 29 H* Lymphocytes % (Manual) 2 L Monocytes % (Manual) 3 Platelet Estimate Normal Polychromasia Hypochromasia (manual) Slight Poikilocytosis (manual Moderate Anisocytosis (manual) Moderate Ovalocytes [place] Cells Schistocytes pO2 37 VBG pH 7.37 VBG pCO2 37 L VBG HCO3 21.5 VBG Total CO2 22.5 VBG O2 Sat (Calc) 74.1 H VBG Base Excess -3.4 L VBG Potassium 3.3 L Sodium 133.0 128 L Chloride 100.0 96 L Glucose 60 L Lactate 4.7 H* Crit Value Called To Pablo cartagena/rn Crit Value Called By Bravo robert/rt Crit Value Read Back Y Blood Gas Notified Time 2357 Potassium 3.4 L Carbon Dioxide 23 Anion Gap 13 BUN 18 H Creatinine 0.9 Est GFR ( Amer) > 60 Est GFR (Non-Af Amer) > 60 Random Glucose 56 L Lactic Acid Calcium 7.5 L Phosphorus Magnesium Total Bilirubin AST ALT Alkaline Phosphatase Total Protein Albumin Globulin Albumin/Globulin Ratio Venous Blood Potassium 3.3 L C. difficile Ag & Toxin Blood Type Antibody Screen 07/02/17 07/02/17 07/02/17 03:14 03:22 05:01 WBC RBC Hgb Hct MCV MCH MCHC RDW Plt Count MPV Neut % (Auto) Lymph % (Auto) [place] % (Auto) Eos % (Auto) Baso % (Auto) Neut # (Auto) Lymph # (Auto) [place] # (Auto) Eos # (Auto) Baso # (Auto) Neutrophils % (Manual) Band Neutrophils % Lymphocytes % (Manual) Monocytes % (Manual) Platelet Estimate Polychromasia Hypochromasia (manual) Poikilocytosis (manual Anisocytosis (manual) Ovalocytes [place] Cells Schistocytes pO2 VBG pH VBG pCO2 VBG HCO3 VBG Total CO2 VBG O2 Sat (Calc) VBG Base Excess VBG Potassium Sodium Chloride Glucose Lactate Crit Value Called To Crit Value Called By Crit Value Read Back Blood Gas Notified Time Potassium Carbon Dioxide Anion Gap BUN Creatinine Est GFR ( Amer) Est GFR (Non-Af Amer) Random Glucose Lactic Acid 5.1 H* Calcium Phosphorus Magnesium Total Bilirubin AST ALT Alkaline Phosphatase Total Protein Albumin Globulin Albumin/Globulin Ratio Venous Blood Potassium C. difficile Ag & Toxin Negative Blood Type O POSITIVE Antibody Screen Negative 07/02/17 07/02/17 08:41 08:41 WBC 21.4 H RBC 3.07 L Hgb 8.7 L Hct 26.6 L MCV 86.4 MCH 28.3 MCHC 32.8 L RDW 16.1 H Plt Count 159 MPV 9.8 Neut % (Auto) 91.7 H Lymph % (Auto) 2.4 L [place] % (Auto) 0.7 Eos % (Auto) 5.0 H Baso % (Auto) 0.2 Neut # (Auto) 19.7 H Lymph # (Auto) 0.5 L [place] # (Auto) 0.1 Eos # (Auto) 1.1 H Baso # (Auto) 0.0 Neutrophils % (Manual) 44 L Band Neutrophils % 53 H* Lymphocytes % (Manual) 3 L Monocytes % (Manual) TEST NOT PERFORMED Platelet Estimate Normal Polychromasia Slight Hypochromasia (manual) Slight Poikilocytosis (manual Anisocytosis (manual) Slight Ovalocytes Slight [place] Cells Slight Schistocytes Slight pO2 VBG pH VBG pCO2 VBG HCO3 VBG Total CO2 VBG O2 Sat (Calc) VBG Base Excess VBG Potassium Sodium 129 L Chloride 99 Glucose Lactate Crit Value Called To Crit Value Called By Crit Value Read Back Blood Gas Notified Time Potassium 3.8 Carbon Dioxide 19 L Anion Gap 14 BUN 19 H Creatinine 0.8 Est GFR ( Amer) > 60 Est GFR (Non-Af Amer) > 60 Random Glucose 92 Lactic Acid Calcium 7.4 L Phosphorus 4.0 Magnesium 1.8 Total Bilirubin 1.4 H AST 63 H D ALT 33 Alkaline Phosphatase 70 Total Protein 4.7 L Albumin 2.0 L Globulin 2.7 Albumin/Globulin Ratio 0.7 L Venous Blood Potassium C. difficile Ag & Toxin Blood Type Antibody Screen Critical Care Progress Note - Nutrition Nutrition: Nutrition Category Date Time Status Heart Healthy Diet [DIET] Diets 06/27/17 Dinner Active Assessment/Plan (1) SOB (shortness of breath) Current Visit: No Status: Acute (2) Myelodysplasia (myelodysplastic syndrome) Current Visit: No Status: Acute Attending/Attestation - Attestation I have personally seen and examined this patient.: Yes I have fully participated in the care of the patient.: Yes I have reviewed all pertinent clinical information: Yes Notes (Text): 07/02/17 18:33 patient seen and examined in the intensive care unit. Overnight patient was placed on BiPAP for increasing shortness of breath also Levophed drip was started for hypotension Continue IV antibiotics Continue anticoagulation for A. fib Monitor H&H
--- NOTE | 2017-07-02 18:28 | CP.PCM.PN ---
Subjective - Date & Time of Evaluation Date of Evaluation: 07/02/17 Time of Evaluation: 08:10 - Subjective Subjective: Pt is lethargic hypotensive pressor- dependent On bi-pap Serum lactic acid 5.1 Objective - Vital Signs/Intake and Output Vital Signs (last 24 hours): Temp Pulse Resp BP Pulse Ox 97.2 F L 93 H 24 107/64 100 07/02/17 16:00 07/02/17 18:00 07/02/17 18:00 07/02/17 18:00 07/02/17 18:00 Intake and Output: 07/02/17 07/02/17 06:59 18:59 Intake Total 3073.0 834.7 Output Total 2 Balance 3073.0 832.7 - Medications Medications: Current Medications Acetaminophen (Tylenol 325mg Tab) 650 mg PO Q4 PRN PRN Reason: blood transfusion Last Admin: 07/01/17 09:55 Dose: 650 mg Albuterol/Ipratropium (Duoneb 3 Mg/0.5 Mg (3 Ml) Ud) 3 ml INH RQ6 [facility] Last Admin: 07/02/17 14:27 Dose: Not Given Apixaban (Eliquis) 5 mg PO BID [facility] Last Admin: 06/24/17 11:18 Dose: 5 mg Aspirin (Aspirin Chewable) 81 mg PO DAILY [facility] Last Admin: 06/24/17 11:18 Dose: 81 mg Dicyclomine HCl (Bentyl) 10 mg PO BID [facility] Last Admin: 07/02/17 17:59 Dose: 10 mg Digoxin (Lanoxin) 0.25 mg IVP Q12 [facility] Stop: 07/03/17 23:59 Last Admin: 07/02/17 11:26 Dose: 0.25 mg Diltiazem HCl (Cardizem) 30 mg PO QID [facility] Last Admin: 07/02/17 17:27 Dose: Not Given Furosemide (Lasix) 20 mg IVP ONCE PRN PRN Reason: before transfusion Last Admin: 06/29/17 01:27 Dose: 20 mg Furosemide (Lasix) 20 mg PO BID [facility] Last Admin: 07/02/17 18:00 Dose: 20 mg Guaifenesin/Dextromethorphan (Robitussin Dm) 5 ml PO Q6H PRN PRN Reason: Cough Heparin Sodium (Porcine) (Heparin) 5,000 units SC Q8H [facility] Last Admin: 07/02/17 17:59 Dose: 5,000 units Metronidazole (Flagyl) 500 mg in 100 mls @ 100 mls/hr IVPB Q8 [facility] Last Admin: 07/02/17 13:12 Dose: 100 mls/hr Fluconazole (Diflucan Iv 200 Mg/100 Ml Ns) 100 mls @ 100 mls/hr IVPB DAILY [facility] Last Admin: 07/02/17 11:26 Dose: 100 mls/hr Cefepime HCl (Maxipime Iv 1 Gm Premix) 1 gm in 50 mls @ 100 mls/hr IVPB Q12H [facility] Last Admin: 07/02/17 11:28 Dose: 100 mls/hr Phenylephrine HCl 30 mg/ (Sodium Chloride) 253 mls @ 10.12 mls/hr IV .Q24H PRN ; Protocol; 20 MCG/MIN PRN Reason: TITRATE PER MD ORDER Last Titration: 07/02/17 06:00 Dose: 0 mcg/min, 0 mls/hr Norepinephrine Bitartrate 4 mg (/ Sodium Chloride) 254 mls @ 15.24 mls/hr IV .[id number] PRN; Protocol; 4 MCG/MIN PRN Reason: TITRATE PER MD ORDER Last Admin: 07/02/17 15:15 Dose: 6 mcg/min, 22.86 mls/hr Losartan Potassium (Cozaar) 25 mg PO DAILY [facility] Last Admin: 06/28/17 10:02 Dose: Not Given Methimazole (Tapazole) 5 mg PO DAILY [facility] Last Admin: 07/02/17 11:30 Dose: 5 mg Methylprednisolone (Solu-Medrol) 40 mg IVP Q4 PRN PRN Reason: Other Last Admin: 06/29/17 01:26 Dose: 40 mg Metoprolol Succinate (Toprol Xl) 25 mg PO DAILY [facility] Last Admin: 06/24/17 11:19 Dose: 25 mg Multivitamins (Hexavitamin) 1 tab PO DAILY [facility] Last Admin: 07/02/17 11:28 Dose: 1 tab Vancomycin HCl (Vancocin (Oral Or Rectal Use)) 250 mg PO QID [facility] Last Admin: 07/02/17 18:01 Dose: 250 mg - Labs Labs: 07/02/17 08:41 02/21/18 08:41 PT 18.2 SECONDS (9.7-12.2) H 06/27/17 11:09 INR 1.6 06/27/17 11:09 APTT 34 SECONDS (21-34) 06/15/17 13:26 - Constitutional Appears: Toxic - Eye Exam Eye Exam: absent: Scleral icterus - Neck Exam Neck Exam: Full ROM - Respiratory Exam Respiratory Exam: Decreased Breath Sounds - Cardiovascular Exam Cardiovascular Exam: Irregular Rhythm - GI/Abdominal Exam GI & Abdominal Exam: Soft. absent: Tenderness - Extremities Exam Extremities Exam: Pedal Edema Assessment and Plan - Assessment and Plan (Free Text) Assessment: Septic shock Afib CHF CAD Colitis T2dm Plan: Cont abtx Cont pressors POOR PROGNOSIS
--- NOTE | 2017-07-02 19:20 | CP.PCM.PN ---
Subjective - Date & Time of Evaluation Date of Evaluation: 07/02/17 Time of Evaluation: 19:20 - Subjective Subjective: pt is seen and examined, follow up consult is dictated #[id number] Objective - Vital Signs/Intake and Output Vital Signs (last 24 hours): Temp Pulse Resp BP Pulse Ox 97.2 F L 94 H 26 H 122/63 100 07/02/17 16:00 07/02/17 18:53 07/02/17 18:53 07/02/17 18:53 07/02/17 18:53 Intake and Output: 07/02/17 07/03/17 18:59 06:59 Intake Total 834.7 22.6 Output Total 2 Balance 832.7 22.6 - Medications Medications: Current Medications Acetaminophen (Tylenol 325mg Tab) 650 mg PO Q4 PRN PRN Reason: blood transfusion Last Admin: 07/01/17 09:55 Dose: 650 mg Albuterol/Ipratropium (Duoneb 3 Mg/0.5 Mg (3 Ml) Ud) 3 ml INH RQ6 [facility] Last Admin: 07/02/17 14:27 Dose: Not Given Apixaban (Eliquis) 5 mg PO BID [facility] Last Admin: 06/24/17 11:18 Dose: 5 mg Aspirin (Aspirin Chewable) 81 mg PO DAILY [facility] Last Admin: 06/24/17 11:18 Dose: 81 mg Dicyclomine HCl (Bentyl) 10 mg PO BID [facility] Last Admin: 07/02/17 17:59 Dose: 10 mg Digoxin (Lanoxin) 0.25 mg IVP Q12 [facility] Stop: 07/03/17 23:59 Last Admin: 07/02/17 11:26 Dose: 0.25 mg Diltiazem HCl (Cardizem) 30 mg PO QID [facility] Last Admin: 07/02/17 17:27 Dose: Not Given Furosemide (Lasix) 20 mg IVP ONCE PRN PRN Reason: before transfusion Last Admin: 06/29/17 01:27 Dose: 20 mg Furosemide (Lasix) 20 mg PO BID [facility] Last Admin: 07/02/17 18:00 Dose: 20 mg Guaifenesin/Dextromethorphan (Robitussin Dm) 5 ml PO Q6H PRN PRN Reason: Cough Heparin Sodium (Porcine) (Heparin) 5,000 units SC Q8H [facility] Last Admin: 07/02/17 17:59 Dose: 5,000 units Metronidazole (Flagyl) 500 mg in 100 mls @ 100 mls/hr IVPB Q8 [facility] Last Admin: 07/02/17 13:12 Dose: 100 mls/hr Fluconazole (Diflucan Iv 200 Mg/100 Ml Ns) 100 mls @ 100 mls/hr IVPB DAILY [facility] Last Admin: 07/02/17 11:26 Dose: 100 mls/hr Cefepime HCl (Maxipime Iv 1 Gm Premix) 1 gm in 50 mls @ 100 mls/hr IVPB Q12H [facility] Last Admin: 07/02/17 11:28 Dose: 100 mls/hr Phenylephrine HCl 30 mg/ (Sodium Chloride) 253 mls @ 10.12 mls/hr IV .Q24H PRN ; Protocol; 20 MCG/MIN PRN Reason: TITRATE PER MD ORDER Last Titration: 07/02/17 06:00 Dose: 0 mcg/min, 0 mls/hr Norepinephrine Bitartrate 4 mg (/ Sodium Chloride) 254 mls @ 15.24 mls/hr IV .[id number] PRN; Protocol; 4 MCG/MIN PRN Reason: TITRATE PER MD ORDER Last Admin: 07/02/17 15:15 Dose: 6 mcg/min, 22.86 mls/hr Losartan Potassium (Cozaar) 25 mg PO DAILY [facility] Last Admin: 06/28/17 10:02 Dose: Not Given Methimazole (Tapazole) 5 mg PO DAILY [facility] Last Admin: 07/02/17 11:30 Dose: 5 mg Methylprednisolone (Solu-Medrol) 40 mg IVP Q4 PRN PRN Reason: Other Last Admin: 06/29/17 01:26 Dose: 40 mg Metoprolol Succinate (Toprol Xl) 25 mg PO DAILY [facility] Last Admin: 06/24/17 11:19 Dose: 25 mg Multivitamins (Hexavitamin) 1 tab PO DAILY [facility] Last Admin: 07/02/17 11:28 Dose: 1 tab Vancomycin HCl (Vancocin (Oral Or Rectal Use)) 250 mg PO QID [facility] Last Admin: 07/02/17 18:01 Dose: 250 mg - Labs Labs: 07/02/17 08:41 07/02/17 08:41 PT 18.2 SECONDS (9.7-12.2) H 06/27/17 11:09 INR 1.6 06/27/17 11:09 APTT 34 SECONDS (21-34) 06/15/17 13:26
--- NOTE | 2017-07-02 22:25 | PN ---
DATE: ENDOCRINOLOGY FOLLOWUP NOTE LOCATION: ICU, Room 8. This is a 77-year-old female with recent admission for congestive heart failure and supervening rapid atrial fibrillation with progressive shortness of breath and tachycardia and is now being followed closely in the ICU for hemodynamic monitoring and management. She remains clinically euthyroid at this time and the latest chemistry showed a BUN of 19, sodium 129, potassium 3.8, chloride 99, CO2 of 19, glucose 92, and creatinine 0.8. Her repeat thyroid study showed a T4 of 5.0 with a TSH of 3.52 and a free T4 of 0.91. Her serum cortisol level is 18.0, so at this time, we will continue the same low-dose medical therapy for hyperthyroidism with Tapazole given as 5 mg once daily in the morning as ordered. We will titrate increment as indicated to optimize metabolic control. We will obtain serial chemistries and supplements accordingly as needed, and we will also repeat her thyroid studies to optimize metabolic control. We will follow with you. Marely Raymundo MD
[2017-07-03] MEDS: Albuterol-Ipratrop 3 mg / 0.5 (3 ml) UD INH SCH ×4 (02:29→21:01)
[2017-07-03] MEDS: metroNIDAZOLE IV 500 mg/100 ml 500 MG/100 ML BAG IVPB SCH ×3 (05:30→22:00)
[2017-07-03 06:38] LABS: ALB/GLOB RATIO 0.7 (1.0-2.1); ALBUMIN 2.1 g/dL (3.5-5.0); ALT/SGPT 38 U/L (9-52); AST/SGOT 33 U/L (14-36); BLOOD UREA NITROGEN 18 mg/dL (7-17); CALCIUM 7.8 mg/dl (8.6-10.4); GFR AFRICAN-AMERICAN > 60; GFR NON-AFRICAN AMERICAN > 60; MAGNESIUM 1.9 mg/dL (1.6-2.3)
[2017-07-03 06:51] LABS: BASO % 0.1 % (0.0-2.0); EOS # 0.1 K/uL (0.0-0.7); EOS % 0.8 % (0.0-4.0); HEMOGLOBIN 8.7 g/dL (11.0-16.0); LYMPH # 0.4 K/uL (1.0-4.3); LYMPH % 2.5 % (20.0-40.0); MEAN CELL VOLUME 86.7 fL (81.0-99.0); MEAN CORPUSCULAR HEMOGLOBIN 28.8 pg (27.0-31.0); MEAN CORPUSCULAR HGB CONC 33.2 g/dL (33.0-37.0); MEAN PLATELET VOLUME 10.7 fL (7.2-11.7); MONO # 0.2 K/uL (0.0-0.8); NEUT # 15.8 K/uL (1.8-7.0); NEUT % 95.6 % (50.0-75.0); NRBC % 0.2 % (0.0-2.0); PLATELET COUNT 157 K/uL (130-400); RBC 3.03 Mil/uL (3.80-5.20); RED CELL DISTRIBUTION WIDTH 16.6 % (11.5-14.5); WHITE BLOOD COUNT 16.5 K/uL (4.8-10.8)
[2017-07-03 08:23] LABS: ANISOCYTOSIS SLIGHT; BANDS 56 % (0-2); EOSINOPHIL 1 % (0-4); LYMPHOCYTE 3 % (20-40); MONOCYTE 2 % (0-10); MYELOCYTE 1 % (0-0); PLATELET ESTIMATE NORMAL (NORMAL); TOTAL CELLS COUNTED 100
[2017-07-03 08:24] LABS: ACANTHOCYTES SLIGHT; HYPOCHROMIC SLIGHT; OVALOCYTES SLIGHT; POIKILOCYTOSIS MODERATE; TARGET CELLS SLIGHT
[2017-07-03 08:25] LABS: BURR CELLS MODERATE; LARGE PLATELETS PRESENT; SCHISTOCYTES SLIGHT; TOXIC GRANULATION PRESENT
[2017-07-03 08:26] LABS: NEUTROPHIL 37 % (50-75)
--- NOTE | 2017-07-03 08:52 | PN ---
DATE: FOLLOWUP RENAL CONSULTATION LOCATION: The patient is located in ICU, bed 8. REQUESTED BY: Deion Marie MD REASON FOR FOLLOWUP: Hyponatremia. HISTORY OF PRESENT ILLNESS: Mrs. Espino is a 77 years old elderly [place] female with a past medical history significant for longstanding hypertension, myelodysplastic syndrome, anemia, multiple transfusions, AFib, PE, CHF, status post cardiac cath, and found to have questionable thrombus in the right RCA at the medical center. Subsequently, the patient was discharged home and admitted a few hours later to [facility] with sudden onset of shortness of breath and found to have a low serum sodium, and also stool for C. diff toxin was positive. Her hospital course was complicated by C. diff colitis with fever now and bandemia and status post BOBBIN SORTER 2 days ago associated with AFib with rapid ventricular response and hypotension, and subsequently, the patient was transferred to ICU. The patient needs norepinephrine and phenylephrine to maintain the pressure. The patient is not in acute distress, complaining of swelling of the legs and abdominal swelling. PHYSICAL EXAMINATION: VITAL SIGNS: As follows: Blood pressure 128/70, pulse about 100, respirations 24, and temperature is 97.2. Height is 5 feet 2 inches and weight is 147 pounds. GENERAL: Mrs. Espino is a 77 years old elderly [place] female, moderately built, moderately nourished, not in acute distress. HEENT: Pupils are normal and reactive to light and accommodation. Conjunctivae slightly pale. Sclerae anicteric. Tongue is moist. Trachea is midline. LUNGS: Symmetric on both sides. Bilateral breath sounds present. Bilateral basal crackles present, right more than the left. CVS: [place] at the fifth intercostal space, midclavicular line. S1, S2 audible. Irregularly irregular. ABDOMEN: Normal in appearance, slightly protuberant, soft, tympanic. No guarding. No rigidity. No hepatosplenomegaly. G[employer] P[employer] WORKER: The patient is alert, awake, and oriented x3. Sensory and motor system is grossly within normal limits. EXTREMITIES: No cyanosis, no clubbing. The patient has 2+ edema in both lower extremities. MEDICATIONS: Her current medications include as follows: Aspirin on hold, Bentyl 10 mg p.o. b.i.d., Cardizem 30 mg p.o. 4 times daily, Cozaar 25 mg p.o. daily, Diflucan 200 mg IV piggyback daily, DuoNeb inhaler, Eliquis on hold, Flagyl 500 mg IV q.8 hours, subcu heparin 5000 units q.8 hours, multivitamin, digoxin 0.25 mg IV piggyback q.12 hours, Lasix 20 mg IV p.r.n. and Lasix 20 mg p.o. b.i.d., cefepime 1 gm q.12 hours, norepinephrine and phenylephrine, Robitussin DM, methylprednisolone 40 mg IV q.4 hours p.r.n., metoprolol on hold, Tylenol 650 mg p.o. q.4 hours, and vancomycin 250 mg p.o. 4 times daily. LABORATORY DATA: Blood culture x2 negative as of 07/01/2017, and MRSA screening was negative as of 06/30/2017, and blood culture x2 negative as of 06/27/2017. Intake and output in the last 24 hours, intake is 3103 and output is 1200. Laboratory data include as follows. As of 07/02/2017, WBC 21.4, hemoglobin 8.7 and hematocrit is 26.6, platelets of 159, neutrophils 44, bands 53, and lymph is 3. Sodium 129, potassium 3.8, chloride 99, CO2 of 19, BUN is 19, creatinine 0.8, glucose 92, and lactic acid is 5.1, calcium 7.4, phosphorus is 4, magnesium 1.8. Total bili 1.4, AST 63, ALT 33, alkaline phosphatase 70, total protein 4.7, albumin is 2. IMPRESSION: In summary, Mrs. Espino is 77 years elderly female with history of hypertension, congestive heart failure, coronary artery disease, atrial fibrillation, pulmonary embolism, myelodysplastic syndrome, anemia, multiple transfusions with hyponatremia and C. diff colitis, proctocolitis with BOBBIN SORTER for shortness of breath and palpitation. The patient was found to be hypotension and atrial fibrillation with rapid ventricular response and transferred to intensive care unit. 1. Hyponatremia, most likely secondary to multifactorial secondary to thyroid disorder. Cannot rule out syndrome of inappropriate antidiuretic hormone secretion. 2. Myelodysplastic syndrome. 3. Anemia. 4. Sepsis. 5. Atrial fibrillation with rapid ventricular response. Continue Levophed and phenylephrine, and also continue digoxin. Overall, prognosis is very poor. Continue IV antibiotics as per ID recommendation. Thank you for allowing me to participate in your patient's care Rehan Dos Santos MD
[2017-07-03] MEDS: Fluconazole IV 200mg/100 ml NS 100 ML IVPB SCH (10:00)
[2017-07-03] MEDS: Digoxin 500 mcg/2ml (0.5 mg/2ml) Inj IVP SCH ×2 (10:47→22:01)
[2017-07-03] MEDS: Multiple Vitamins Tab PO SCH (10:48)
[2017-07-03] MEDS: methIMAzole 5 MG TAB PO SCH (10:48)
[2017-07-03] MEDS: Vancomycin 125 MG/5 ML SOLN (ORAL/RECTAL) PO SCH ×4 (10:48→22:03)
[2017-07-03] MEDS: Cefepime IV 1 gm in Dextrose 1 GM/50 ML BAG IVPB SCH (12:43)
[2017-07-03] MEDS: Lactated Ringer's 1,000 ML IV SCH (13:00)
--- NOTE | 2017-07-03 13:08 | CP.PCM.PN ---
Subjective - Date & Time of Evaluation Date of Evaluation: 07/03/17 Time of Evaluation: 13:06 - Subjective Subjective: S: Feels weak. Poor appetite. No diarrhea. Objective - Vital Signs/Intake and Output Vital Signs (last 24 hours): Temp Pulse Resp BP Pulse Ox 98 F 71 21 118/66 100 07/03/17 04:00 07/03/17 07:23 07/03/17 07:23 07/03/17 12:47 07/03/17 07:23 Intake and Output: 07/03/17 07/03/17 06:59 18:59 Intake Total 841.6 20.3 Output Total 810 Balance 31.6 20.3 - Medications Medications: Current Medications Acetaminophen (Tylenol 325mg Tab) 650 mg PO Q4 PRN PRN Reason: blood transfusion Last Admin: 07/01/17 09:55 Dose: 650 mg Albuterol/Ipratropium (Duoneb 3 Mg/0.5 Mg (3 Ml) Ud) 3 ml INH RQ6 [facility] Last Admin: 07/03/17 07:44 Dose: 3 ml Apixaban (Eliquis) 5 mg PO BID [facility] [place] Last Admin: 06/24/17 11:18 Dose: 5 mg Aspirin (Aspirin Chewable) 81 mg PO DAILY [facility] [place] Last Admin: 06/24/17 11:18 Dose: 81 mg Dicyclomine HCl (Bentyl) 10 mg PO BID [facility] [place] Last Admin: 07/03/17 10:48 Dose: 10 mg Digoxin (Lanoxin) 0.25 mg IVP Q12 [facility] [place] Stop: 07/03/17 23:59 Last Admin: 07/03/17 10:47 Dose: 0.25 mg Diltiazem HCl (Cardizem) 30 mg PO QID [facility] [place] Last Admin: 07/03/17 10:17 Dose: Not Given Furosemide (Lasix) 20 mg IVP ONCE PRN PRN Reason: before transfusion Last Admin: 06/29/17 01:27 Dose: 20 mg Furosemide (Lasix) 20 mg PO BID [facility] [place] Last Admin: 07/03/17 12:47 Dose: 20 mg Guaifenesin/Dextromethorphan (Robitussin Dm) 5 ml PO Q6H PRN PRN Reason: Cough Heparin Sodium (Porcine) (Heparin) 5,000 units SC Q8H [facility] [place] Last Admin: 07/03/17 10:46 Dose: 5,000 units Metronidazole (Flagyl) 500 mg in 100 mls @ 100 mls/hr IVPB Q8 [facility] [place] Last Admin: 07/03/17 05:30 Dose: 100 mls/hr Fluconazole (Diflucan Iv 200 Mg/100 Ml Ns) 100 mls @ 100 mls/hr IVPB DAILY [facility] [place] Last Admin: 07/03/17 10:00 Dose: 100 mls/hr Cefepime HCl (Maxipime Iv 1 Gm Premix) 1 gm in 50 mls @ 100 mls/hr IVPB Q12H [facility] [place] Last Admin: 07/03/17 12:43 Dose: 100 mls/hr Phenylephrine HCl 30 mg/ (Sodium Chloride) 253 mls @ 10.12 mls/hr IV .Q24H PRN ; Protocol; 20 MCG/MIN PRN Reason: TITRATE PER MD ORDER Last Titration: 07/02/17 06:00 Dose: 0 mcg/min, 0 mls/hr Norepinephrine Bitartrate 4 mg (/ Sodium Chloride) 254 mls @ 15.24 mls/hr IV .[id number] PRN; Protocol; 4 MCG/MIN PRN Reason: TITRATE PER MD ORDER Last Titration: 07/03/17 11:05 Dose: 0 mcg/min, 0 mls/hr Lactated Ringer's (Lactated Ringer's) 1,000 mls @ 75 mls/hr IV .[id number] [facility] [place] Losartan Potassium (Cozaar) 25 mg PO DAILY [facility] [place] Last Admin: 06/28/17 10:02 Dose: Not Given Methimazole (Tapazole) 5 mg PO DAILY [facility] [place] Last Admin: 07/03/17 10:48 Dose: 5 mg Methylprednisolone (Solu-Medrol) 40 mg IVP Q4 PRN PRN Reason: Other Last Admin: 06/29/17 01:26 Dose: 40 mg Metoprolol Succinate (Toprol Xl) 25 mg PO DAILY [facility] [place] Last Admin: 06/24/17 11:19 Dose: 25 mg Multivitamins (Hexavitamin) 1 tab PO DAILY [facility] [place] Last Admin: 07/03/17 10:48 Dose: 1 tab Vancomycin HCl (Vancocin (Oral Or Rectal Use)) 250 mg PO QID [facility] [place] Last Admin: 07/03/17 10:48 Dose: 250 mg - Labs Labs: 07/03/17 06:07 07/03/17 06:05 PT 18.2 SECONDS (9.7-12.2) H 06/27/17 11:09 INR 1.6 06/27/17 11:09 APTT 34 SECONDS (21-34) 06/15/17 13:26 - Constitutional Appears: Chronically Ill - Head Exam Head Exam: NORMAL INSPECTION - Eye Exam Eye Exam: Normal appearance - ENT Exam ENT Exam: Mucous Membranes Dry - Neck Exam Neck Exam: Normal Inspection - Respiratory Exam Respiratory Exam: Decreased Breath Sounds - Cardiovascular Exam Cardiovascular Exam: Tachycardia - GI/Abdominal Exam GI & Abdominal Exam: Distended - Rectal Exam Rectal Exam: Deferred - Extremities Exam Extremities Exam: Pedal Edema Assessment and Plan (1) CHF (congestive heart failure) Status: Acute (2) Rapid atrial fibrillation Status: Acute (3) Myelodysplasia (myelodysplastic syndrome) Status: Chronic (4) Pulmonary embolism on long-term anticoagulation therapy Status: Acute (5) Pulmonary embolism Status: Chronic (6) Fever Status: Acute (7) Sepsis Status: Acute - Assessment and Plan (Free Text) Assessment: A/P: Continue medications. BP more stable. spoke to nurse.
--- NOTE | 2017-07-03 14:16 | CP.PCM.PN ---
Subjective - Date & Time of Evaluation Date of Evaluation: 07/03/17 Time of Evaluation: 14:16 - Subjective Subjective: pt is seen and examined, follow up consult is dictated #[id number] Objective - Vital Signs/Intake and Output Vital Signs (last 24 hours): Temp Pulse Resp BP Pulse Ox 98 F 71 21 118/66 100 07/03/17 04:00 07/03/17 07:23 07/03/17 07:23 07/03/17 12:47 07/03/17 07:23 Intake and Output: 07/03/17 07/03/17 06:59 18:59 Intake Total 841.6 20.3 Output Total 810 Balance 31.6 20.3 - Medications Medications: Current Medications Acetaminophen (Tylenol 325mg Tab) 650 mg PO Q4 PRN PRN Reason: blood transfusion Last Admin: 07/01/17 09:55 Dose: 650 mg Albuterol/Ipratropium (Duoneb 3 Mg/0.5 Mg (3 Ml) Ud) 3 ml INH RQ6 [facility] Last Admin: 07/03/17 13:40 Dose: Not Given Apixaban (Eliquis) 5 mg PO BID [facility] Last Admin: 06/24/17 11:18 Dose: 5 mg Aspirin (Aspirin Chewable) 81 mg PO DAILY [facility] Last Admin: 06/24/17 11:18 Dose: 81 mg Dicyclomine HCl (Bentyl) 10 mg PO BID [facility] Last Admin: 07/03/17 10:48 Dose: 10 mg Digoxin (Lanoxin) 0.25 mg IVP Q12 [facility] Stop: 07/03/17 23:59 Last Admin: 07/03/17 10:47 Dose: 0.25 mg Diltiazem HCl (Cardizem) 30 mg PO QID [facility] Last Admin: 07/03/17 13:41 Dose: 30 mg Furosemide (Lasix) 20 mg IVP ONCE PRN PRN Reason: before transfusion Last Admin: 06/29/17 01:27 Dose: 20 mg Furosemide (Lasix) 20 mg PO BID [facility] Last Admin: 07/03/17 12:47 Dose: 20 mg Guaifenesin/Dextromethorphan (Robitussin Dm) 5 ml PO Q6H PRN PRN Reason: Cough Heparin Sodium (Porcine) (Heparin) 5,000 units SC Q8H [facility] Last Admin: 07/03/17 10:46 Dose: 5,000 units Metronidazole (Flagyl) 500 mg in 100 mls @ 100 mls/hr IVPB Q8 [facility] Last Admin: 07/03/17 13:45 Dose: 100 mls/hr Fluconazole (Diflucan Iv 200 Mg/100 Ml Ns) 100 mls @ 100 mls/hr IVPB DAILY [facility] Last Admin: 07/03/17 10:00 Dose: 100 mls/hr Cefepime HCl (Maxipime Iv 1 Gm Premix) 1 gm in 50 mls @ 100 mls/hr IVPB Q12H [facility] Last Admin: 07/03/17 12:43 Dose: 100 mls/hr Phenylephrine HCl 30 mg/ (Sodium Chloride) 253 mls @ 10.12 mls/hr IV .Q24H PRN ; Protocol; 20 MCG/MIN PRN Reason: TITRATE PER MD ORDER Last Titration: 07/02/17 06:00 Dose: 0 mcg/min, 0 mls/hr Norepinephrine Bitartrate 4 mg (/ Sodium Chloride) 254 mls @ 15.24 mls/hr IV .[id number] PRN; Protocol; 4 MCG/MIN PRN Reason: TITRATE PER MD ORDER Last Titration: 07/03/17 11:05 Dose: 0 mcg/min, 0 mls/hr Lactated Ringer's (Lactated Ringer's) 1,000 mls @ 75 mls/hr IV .[id number] [facility] Losartan Potassium (Cozaar) 25 mg PO DAILY [facility] Last Admin: 06/28/17 10:02 Dose: Not Given Methimazole (Tapazole) 5 mg PO DAILY [facility] Last Admin: 07/03/17 10:48 Dose: 5 mg Methylprednisolone (Solu-Medrol) 40 mg IVP Q4 PRN PRN Reason: Other Last Admin: 06/29/17 01:26 Dose: 40 mg Metoprolol Succinate (Toprol Xl) 25 mg PO DAILY [facility] Last Admin: 06/24/17 11:19 Dose: 25 mg Multivitamins (Hexavitamin) 1 tab PO DAILY [facility] Last Admin: 07/03/17 10:48 Dose: 1 tab Vancomycin HCl (Vancocin (Oral Or Rectal Use)) 250 mg PO QID [facility] Last Admin: 07/03/17 13:42 Dose: 250 mg - Labs Labs: 07/03/17 06:07 07/03/17 06:05 PT 18.2 SECONDS (9.7-12.2) H 06/27/17 11:09 INR 1.6 06/27/17 11:09 APTT 34 SECONDS (21-34) 06/15/17 13:26
[2017-07-03] MEDS ORDERED: Metoprolol 1 mg/ml Inj IVP ONE ×2 (14:23→14:45)
[2017-07-03 16:49] LABS: TSI <89 % baseline (<140)
--- NOTE | 2017-07-03 16:54 | CP.CCUPN ---
<Shlomo Rdedy - Last Filed: 07/03/17 16:51> CCU Subjective - Physician Review Subjective (Free Text): Patient seen and examined. Appears drowsy. AAOx3. Currently on bipap, will place on nasal cannula and monitor status. Denies chest pain, cough, diarrhea, dysuria. CCU Objective - Vital Signs / Intake & Output Intake and Output (Last 8hrs): Intake & Output 07/03/17 07/03/17 07/03/17 06:59 14:59 22:59 Intake Total 674 20.3 Output Total 800 Balance -126 20.3 Weight 148 lb Intake: IV 254 9 Intake, IV Amount 120 11.3 Right Distal Port 120 11.3 Subclavian Oral 300 0 Output: Urine 800 Urine, Voided 800 - Physical Exam Head: Positive for: Atraumatic, Normocephalic Pupils: Positive for: PERRL Extroacular Muscles: Positive for: EOMI Conjunctiva: Positive for: Normal Mouth: Positive for: Moist Mucous Membranes Respiratory/Chest: Positive for: Good [employer] Exchange Cardiovascular: Positive for: Normal S1, S2 Abdomen: Positive for: Normal Bowel Sounds - Medications Active Medications: Active Medications Generic Name Dose Route Start Last Admin Trade Name Freq PRN Reason Stop Dose Admin Acetaminophen 650 mg 06/28/17 13:35 07/01/17 09:55 Tylenol 325mg Tab PO 650 mg Q4 PRN Administration blood transfusion Albuterol/Ipratropium 3 ml 06/30/17 08:00 07/03/17 13:40 Duoneb 3 Mg/0.5 Mg (3 Ml) Ud INH Not Given RQ6 VARINDER Apixaban 5 mg 06/16/17 10:00 06/24/17 11:18 Eliquis PO 5 mg BID VARINDER Administration Aspirin 81 mg 06/16/17 10:00 06/24/17 11:18 Aspirin Chewable PO 81 mg DAILY VARINDER Administration Dicyclomine HCl 10 mg 06/21/17 10:00 07/03/17 10:48 Bentyl PO 10 mg BID VARINDER Administration Digoxin 0.25 mg 07/01/17 10:00 07/03/17 10:47 Lanoxin IVP 07/03/17 23:59 0.25 mg Q12 VARINDER Administration Diltiazem HCl 30 mg 07/03/17 14:30 Cardizem PO Q6H VARINDER Furosemide 20 mg 06/28/17 15:22 06/29/17 01:27 Lasix IVP 20 mg ONCE PRN Administration before transfusion Furosemide 20 mg 06/30/17 13:28 07/03/17 12:47 Lasix PO 20 mg BID VARINDER Administration Guaifenesin/Dextromethorphan 5 ml 07/01/17 21:54 Robitussin Dm PO Q6H PRN Cough Heparin Sodium (Porcine) 5,000 units 06/30/17 18:00 07/03/17 10:46 Heparin SC 5,000 units Q8H VARINDER Administration Metronidazole 500 mg in 100 mls @ 100 mls/hr 06/22/17 15:00 07/03/17 13:45 Flagyl IVPB 100 mls/hr Q8 VARINDER Administration Fluconazole 100 mls @ 100 mls/hr 06/25/17 16:00 07/03/17 10:00 Diflucan Iv 200 Mg/100 Ml Ns IVPB 100 mls/hr DAILY VARINDER Administration Cefepime HCl 1 gm in 50 mls @ 100 mls/hr 06/27/17 12:00 07/03/17 12:43 Maxipime Iv 1 Gm Premix IVPB 100 mls/hr Q12H VARINDER Administration Phenylephrine HCl 30 mg/ 253 mls @ 10.12 mls/hr 07/01/17 17:32 07/02/17 06:00 Sodium Chloride IV 0 mcg/min .Q24H PRN 0 mls/hr TITRATE PER MD ORDER Titration Protocol 20 MCG/MIN Norepinephrine Bitartrate 4 mg 254 mls @ 15.24 mls/hr 07/01/17 23:29 11:05 / Sodium Chloride IV 0 mcg/min .[id number] PRN 0 mls/hr TITRATE PER MD ORDER Titration Protocol 4 MCG/MIN Lactated Ringer's 1,000 mls @ 75 mls/hr 07/03/17 13:00 07/03/17 13:00 Lactated Ringer's IV 75 mls/hr .[id number] VARINDER Administration Losartan Potassium 25 mg 06/17/17 21:33 06/28/17 10:02 Cozaar PO Not Given DAILY VARINDER Methimazole 5 mg 06/16/17 10:00 07/03/17 10:48 Tapazole PO 5 mg DAILY VARINDER Administration Methylprednisolone 40 mg 06/28/17 13:38 06/29/17 01:26 Solu-Medrol IVP 40 mg Q4 PRN Administration Other Metoprolol Succinate 25 mg 06/23/17 10:00 06/24/17 11:19 Toprol Xl PO 25 mg DAILY VARINDER Administration Multivitamins 1 tab 06/16/17 10:00 07/03/17 10:48 Hexavitamin PO 1 tab DAILY VARINDER Administration Vancomycin HCl 250 mg 06/19/17 10:00 07/03/17 13:42 Vancocin (Oral Or Rectal Use) PO 250 mg QID VARINDER Administration - Patient Studies Lab Studies: Microbiology Studies 07/01/17 14:00 Blood Culture - Preliminary Blood-Venous NO GROWTH AFTER 48 HOURS 07/01/17 13:30 Blood Culture - Preliminary Blood-Venous NO GROWTH AFTER 48 HOURS 06/30/17 Unknown MRSA Culture - Final Naris MRSA NOT DETECTED 06/27/17 10:52 Blood Culture - Final Blood-Venous NO GROWTH AFTER 5 DAYS Gram Stain - Final TEST NOT PERFORMED 06/27/17 10:52 Blood Culture - Final Blood-Venous NO GROWTH AFTER 5 DAYS Gram Stain - Final TEST NOT PERFORMED Lab Studies 07/03/17 07/03/17 07/01/17 Range/Units 06:07 06:05 07:27 WBC 16.5 H (4.8-10.8) K/uL RBC 3.03 L (3.80-5.20) Mil/uL Hgb 8.7 L (11.0-16.0) g/dL Hct 26.3 L (34.0-47.0) % MCV 86.7 (81.0-99.0) fL MCH 28.8 (27.0-31.0) pg MCHC 33.2 (33.0-37.0) g/dL RDW 16.6 H (11.5-14.5) % Plt Count 157 (130-400) K/uL MPV 10.7 (7.2-11.7) fL Neut % (Auto) 95.6 H (50.0-75.0) % Lymph % (Auto) 2.5 L (20.0-40.0) % Jones % (Auto) 1.0 (0.0-10.0) % Eos % (Auto) 0.8 (0.0-4.0) % Baso % (Auto) 0.1 (0.0-2.0) % Neut # (Auto) 15.8 H (1.8-7.0) K/uL Lymph # (Auto) 0.4 L (1.0-4.3) K/uL Jones # (Auto) 0.2 (0.0-0.8) K/uL Eos # (Auto) 0.1 (0.0-0.7) K/uL Baso # (Auto) 0.0 (0.0-0.2) K/uL Neutrophils % (Manual) 37 L (50-75) % Band Neutrophils % 56 H* (0-2) % Lymphocytes % (Manual) 3 L (20-40) % Monocytes % (Manual) 2 (0-10) % Eosinophils % (Manual) 1 (0-4) % Myelocytes % 1 H (0-0) % Toxic Granulation Present Platelet Estimate Normal (NORMAL) Large Platelets Present Hypochromasia (manual) Slight Poikilocytosis (manual Moderate Anisocytosis (manual) Slight Target Cells Slight Ovalocytes Slight [place] Cells Moderate Acanthocytes (Spur) Slight Schistocytes Slight Sodium 129 L (132-148) mmol/L Potassium 3.6 (3.6-5.2) mmol/L Chloride 99 (98-107) mmol/L Carbon Dioxide 23 (22-30) mmol/L Anion Gap 11 (10-20) BUN 18 H (7-17) mg/dL Creatinine 0.6 L (0.7-1.2) mg/dL Est GFR ( Amer) > 60 Est GFR (Non-Af Amer) > 60 Random Glucose 111 H (65-105) mg/dL Calcium 7.8 L (8.6-10.4) mg/dl Phosphorus 2.4 L (2.5-4.5) mg/dL Magnesium 1.9 (1.6-2.3) mg/dL Total Bilirubin 1.0 (0.2-1.3) mg/dL AST 33 (14-36) U/L ALT 38 (9-52) U/L Alkaline Phosphatase 149 H D (38-126) U/L Total Protein 5.1 L (6.3-8.3) g/dL Albumin 2.1 L (3.5-5.0) g/dL Globulin 3.0 (2.2-3.9) gm/dL Albumin/Globulin Ratio 0.7 L (1.0-2.1) Thyroid Stim Immunoglob <89 (<140) % baseline ACTH (6-50) pg/mL Thyroperoxidase Ab 1 (<9) IU/mL 07/01/17 Range/Units 06:17 WBC (4.8-10.8) K/uL RBC (3.80-5.20) Mil/uL Hgb (11.0-16.0) g/dL Hct (34.0-47.0) % MCV (81.0-99.0) fL MCH (27.0-31.0) pg MCHC (33.0-37.0) g/dL RDW (11.5-14.5) % Plt Count (130-400) K/uL MPV (7.2-11.7) fL Neut % (Auto) (50.0-75.0) % Lymph % (Auto) (20.0-40.0) % Jones % (Auto) (0.0-10.0) % Eos % (Auto) (0.0-4.0) % Baso % (Auto) (0.0-2.0) % Neut # (Auto) (1.8-7.0) K/uL Lymph # (Auto) (1.0-4.3) K/uL Jones # (Auto) (0.0-0.8) K/uL Eos # (Auto) (0.0-0.7) K/uL Baso # (Auto) (0.0-0.2) K/uL Neutrophils % (Manual) (50-75) % Band Neutrophils % (0-2) % Lymphocytes % (Manual) (20-40) % Monocytes % (Manual) (0-10) % Eosinophils % (Manual) (0-4) % Myelocytes % (0-0) % Toxic Granulation Platelet Estimate (NORMAL) Large Platelets Hypochromasia (manual) Poikilocytosis (manual Anisocytosis (manual) Target Cells Ovalocytes Eli Cells Acanthocytes (Spur) Schistocytes Sodium (132-148) mmol/L Potassium (3.6-5.2) mmol/L Chloride (98-107) mmol/L Carbon Dioxide (22-30) mmol/L Anion Gap (10-20) BUN (7-17) mg/dL Creatinine (0.7-1.2) mg/dL Est GFR ( Amer) Est GFR (Non-Af Amer) Random Glucose (65-105) mg/dL Calcium (8.6-10.4) mg/dl Phosphorus (2.5-4.5) mg/dL Magnesium (1.6-2.3) mg/dL Total Bilirubin (0.2-1.3) mg/dL AST (14-36) U/L ALT (9-52) U/L Alkaline Phosphatase (38-126) U/L Total Protein (6.3-8.3) g/dL Albumin (3.5-5.0) g/dL Globulin (2.2-3.9) gm/dL Albumin/Globulin Ratio (1.0-2.1) Thyroid Stim Immunoglob (<140) % baseline ACTH 52 H (6-50) pg/mL Thyroperoxidase Ab (<9) IU/mL Laboratory Results - last 24 hr 07/01/17 07/01/17 07/03/17 06:17 07:27 06:05 WBC RBC Hgb Hct MCV MCH MCHC RDW Plt Count MPV Neut % (Auto) Lymph % (Auto) Jones % (Auto) Eos % (Auto) Baso % (Auto) Neut # (Auto) Lymph # (Auto) Jones # (Auto) Eos # (Auto) Baso # (Auto) Neutrophils % (Manual) Band Neutrophils % Lymphocytes % (Manual) Monocytes % (Manual) Eosinophils % (Manual) Myelocytes % Toxic Granulation Platelet Estimate Large Platelets Hypochromasia (manual) Poikilocytosis (manual Anisocytosis (manual) Target Cells Ovalocytes [place] Cells Acanthocytes (Spur) Schistocytes Sodium 129 L Potassium 3.6 Chloride 99 Carbon Dioxide 23 Anion Gap 11 BUN 18 H Creatinine 0.6 L Est GFR ( Amer) > 60 Est GFR (Non-Af Amer) > 60 Random Glucose 111 H Calcium 7.8 L Phosphorus 2.4 L Magnesium 1.9 Total Bilirubin 1.0 AST 33 ALT 38 Alkaline Phosphatase 149 H D Total Protein 5.1 L Albumin 2.1 L Globulin 3.0 Albumin/Globulin Ratio 0.7 L Thyroid Stim Immunoglob <89 ACTH 52 H Thyroperoxidase Ab 1 07/03/17 06:07 WBC 16.5 H RBC 3.03 L Hgb 8.7 L Hct 26.3 L MCV 86.7 MCH 28.8 MCHC 33.2 RDW 16.6 H Plt Count 157 MPV 10.7 Neut % (Auto) 95.6 H Lymph % (Auto) 2.5 L Jones % (Auto) 1.0 Eos % (Auto) 0.8 Baso % (Auto) 0.1 Neut # (Auto) 15.8 H Lymph # (Auto) 0.4 L Jones # (Auto) 0.2 Eos # (Auto) 0.1 Baso # (Auto) 0.0 Neutrophils % (Manual) 37 L Band Neutrophils % 56 H* Lymphocytes % (Manual) 3 L Monocytes % (Manual) 2 Eosinophils % (Manual) 1 Myelocytes % 1 H Toxic Granulation Present Platelet Estimate Normal Large Platelets Present Hypochromasia (manual) Slight Poikilocytosis (manual Moderate Anisocytosis (manual) Slight Target Cells Slight Ovalocytes Slight Eli Cells Moderate Acanthocytes (Spur) Slight Schistocytes Slight Sodium Potassium Chloride Carbon Dioxide Anion Gap BUN Creatinine Est GFR ( Amer) Est GFR (Non-Af Amer) Random Glucose Calcium Phosphorus Magnesium Total Bilirubin AST ALT Alkaline Phosphatase Total Protein Albumin Globulin Albumin/Globulin Ratio Thyroid Stim Immunoglob ACTH Thyroperoxidase Ab Review of Systems - Review of Systems All systems: reviewed and no additional remarkable complaints except (as above) Critical Care Progress Note - Nutrition Nutrition: Nutrition Category Date Time Status Heart Healthy Diet [DIET] Diets 06/27/17 Dinner Active Assessment/Plan - Assessment and Plan (Free Text) Assessment: 77 year old F with MDS, recent PE (04/2017), CAD, Afib, brought to ICU for shortness of breath. Plan: Infectious Disease: Sepsis - Colitis Infectious Disease consult w/ Dr Hernandez CT chest/abd/pelvix without IV contrast - Extensive wall thickening of the rectum lobe and distal sigmoid colon; correlate for colitis and/or proctitis. Additionally evidence of cecal and the left colonic wall thickening suspicious for colitis. Procalcitonin HIGH Flagyl 500mg IV TID Vancomycin 250mg PO QID Fluconazole 200mg IV QD Cefepime 1g IV BID Cardio: CAD, Afib, Diastolic CHF Cardiology consult w/ Dr Sosa * recent cardiac cath revealed RCA with large thrombus in the distal RCA. No angioplasty baloon or stent is big enough to open the obstructing thrombus. A decision was made as per Dr Skinner recommendation to treat the patient medically with antiplatelet and anticoagulation. Cardizem 30mg PO QID ProBNP - 5230 ECHO - Normal ECHO. LVSF normal. EF 60%. Venous dopplers LE - normal Pulm: Shortness of breath - COPD vs CHF? Pulm consult w/ Dr Joseph Ivan 3ml INH RQ6 Methylprednisolone 40mg IV Q4H PRN Lasix 20mg PO BID Standing order for lasix 20mg to be given 30 mins prior to future transfusions GI: Positive stool occult GI consult w/ Dr Thurman * Since the EGD and colonoscopy were scheduled last week, Code Sepsis and Rapid Response have been called. I do not think she is stable for the GI workup at this time. Hematology: Anemia, MDS Heme consult w/ Dr Meyer s/p 2 units pRBC 06/28/17 Procrit [id number] SC TTS Methimazole 5mg PO QD Endo: DM, Chronic [employer] consult w/ Dr Raymundo Renal consult w/ Dr Tabor Neuro: Neurology consult w/ Sky Moncada PPx: Heparin 5000u SC TID Multivitamin <Juwan Ballard - Last Filed: 07/03/17 17:42> CCU Objective - Vital Signs / Intake & Output Vital Signs (Last 4 hours): Vital Signs Pulse Resp BP Pulse Ox 07/03/17 16:56 101 H 25 H 93/75 L 100 07/03/17 15:55 84 25 H 110/66 100 07/03/17 14:56 76 25 H 119/76 100 Intake and Output (Last 8hrs): Intake & Output 07/03/17 07/03/17 07/03/17 06:59 14:59 22:59 Intake Total 674 20.3 Output Total 800 Balance -126 20.3 Weight 148 lb Intake: IV 254 9 Intake, IV Amount 120 11.3 Right Distal Port 120 11.3 Subclavian Oral 300 0 Output: Urine 800 Urine, Voided 800 - Medications Active Medications: Active Medications Generic Name Dose Route Start Last Admin Trade Name Freq PRN Reason Stop Dose Admin Acetaminophen 650 mg 06/28/17 13:35 07/01/17 09:55 Tylenol 325mg Tab PO 650 mg Q4 PRN Administration blood transfusion Albuterol/Ipratropium 3 ml 06/30/17 08:00 07/03/17 13:40 Duoneb 3 Mg/0.5 Mg (3 Ml) Ud INH Not Given RQ6 VARINDER Apixaban 5 mg 06/16/17 10:00 06/24/17 11:18 Eliquis PO 5 mg BID VARINDER Administration Aspirin 81 mg 06/16/17 10:00 06/24/17 11:18 Aspirin Chewable PO 81 mg DAILY VARINDER Administration Dicyclomine HCl 10 mg 06/21/17 10:00 07/03/17 10:48 Bentyl PO 10 mg BID VARINDER Administration Digoxin 0.25 mg 07/01/17 10:00 07/03/17 10:47 Lanoxin IVP 07/03/17 23:59 0.25 mg Q12 VARINDER Administration Diltiazem HCl 30 mg 07/03/17 14:30 07/03/17 14:05 Cardizem PO Not Given Q6H VARINDER Furosemide 20 mg 06/28/17 15:22 06/29/17 01:27 Lasix IVP 20 mg ONCE PRN Administration before transfusion Furosemide 20 mg 06/30/17 13:28 07/03/17 12:47 Lasix PO 20 mg BID VARINDER Administration Guaifenesin/Dextromethorphan 5 ml 07/01/17 21:54 Robitussin Dm PO Q6H PRN Cough Heparin Sodium (Porcine) 5,000 units 06/30/17 18:00 07/03/17 10:46 Heparin SC 5,000 units Q8H VARINDER Administration Metronidazole 500 mg in 100 mls @ 100 mls/hr 06/22/17 15:00 07/03/17 13:45 Flagyl IVPB 100 mls/hr Q8 VARINDER Administration Fluconazole 100 mls @ 100 mls/hr 06/25/17 16:00 07/03/17 10:00 Diflucan Iv 200 Mg/100 Ml Ns IVPB 100 mls/hr DAILY VARINDER Administration Cefepime HCl 1 gm in 50 mls @ 100 mls/hr 06/27/17 12:00 07/03/17 12:43 Maxipime Iv 1 Gm Premix IVPB 100 mls/hr Q12H VARINDER Administration Phenylephrine HCl 30 mg/ 253 mls @ 10.12 mls/hr 07/01/17 17:32 07/02/17 06:00 Sodium Chloride IV 0 mcg/min .Q24H PRN 0 mls/hr TITRATE PER MD ORDER Titration Protocol 20 MCG/MIN Norepinephrine Bitartrate 4 mg 254 mls @ 15.24 mls/hr 07/01/17 23:29 11:05 / Sodium Chloride IV 0 mcg/min .[id number] PRN 0 mls/hr TITRATE PER MD ORDER Titration Protocol 4 MCG/MIN Lactated Ringer's 1,000 mls @ 75 mls/hr 07/03/17 13:00 07/03/17 13:00 Lactated Ringer's IV 75 mls/hr .[id number] VARINDER Administration Losartan Potassium 25 mg 06/17/17 21:33 06/28/17 10:02 Cozaar PO Not Given DAILY VARINDER Methimazole 5 mg 06/16/17 10:00 07/03/17 10:48 Tapazole PO 5 mg DAILY VARINDER Administration Methylprednisolone 40 mg 06/28/17 13:38 06/29/17 01:26 Solu-Medrol IVP 40 mg Q4 PRN Administration Other Metoprolol Succinate 25 mg 06/23/17 10:00 06/24/17 11:19 Toprol Xl PO 25 mg DAILY VARINDER Administration Multivitamins 1 tab 06/16/17 10:00 07/03/17 10:48 Hexavitamin PO 1 tab DAILY VARINDER Administration Vancomycin HCl 250 mg 06/19/17 10:00 07/03/17 13:42 Vancocin (Oral Or Rectal Use) PO 250 mg QID VARINDER Administration - Patient Studies Lab Studies: Microbiology Studies 07/01/17 14:00 Blood Culture - Preliminary Blood-Venous NO GROWTH AFTER 48 HOURS 07/01/17 13:30 Blood Culture - Preliminary Blood-Venous NO GROWTH AFTER 48 HOURS 06/30/17 Unknown MRSA Culture - Final Naris MRSA NOT DETECTED 06/27/17 10:52 Blood Culture - Final Blood-Venous NO GROWTH AFTER 5 DAYS Gram Stain - Final TEST NOT PERFORMED 06/27/17 10:52 Blood Culture - Final Blood-Venous NO GROWTH AFTER 5 DAYS Gram Stain - Final TEST NOT PERFORMED Lab Studies 07/03/17 07/03/17 07/01/17 Range/Units 06:07 06:05 07:27 WBC 16.5 H (4.8-10.8) K/uL RBC 3.03 L (3.80-5.20) Mil/uL Hgb 8.7 L (11.0-16.0) g/dL Hct 26.3 L (34.0-47.0) % MCV 86.7 (81.0-99.0) fL MCH 28.8 (27.0-31.0) pg MCHC 33.2 (33.0-37.0) g/dL RDW 16.6 H (11.5-14.5) % Plt Count 157 (130-400) K/uL MPV 10.7 (7.2-11.7) fL Neut % (Auto) 95.6 H (50.0-75.0) % Lymph % (Auto) 2.5 L (20.0-40.0) % Jones % (Auto) 1.0 (0.0-10.0) % Eos % (Auto) 0.8 (0.0-4.0) % Baso % (Auto) 0.1 (0.0-2.0) % Neut # (Auto) 15.8 H (1.8-7.0) K/uL Lymph # (Auto) 0.4 L (1.0-4.3) K/uL Jones # (Auto) 0.2 (0.0-0.8) K/uL Eos # (Auto) 0.1 (0.0-0.7) K/uL Baso # (Auto) 0.0 (0.0-0.2) K/uL Neutrophils % (Manual) 37 L (50-75) % Band Neutrophils % 56 H* (0-2) % Lymphocytes % (Manual) 3 L (20-40) % Monocytes % (Manual) 2 (0-10) % Eosinophils % (Manual) 1 (0-4) % Myelocytes % 1 H (0-0) % Toxic Granulation Present Platelet Estimate Normal (NORMAL) Large Platelets Present Hypochromasia (manual) Slight Poikilocytosis (manual Moderate Anisocytosis (manual) Slight Target Cells Slight Ovalocytes Slight Eli Cells Moderate Acanthocytes (Spur) Slight Schistocytes Slight Sodium 129 L (132-148) mmol/L Potassium 3.6 (3.6-5.2) mmol/L Chloride 99 (98-107) mmol/L Carbon Dioxide 23 (22-30) mmol/L Anion Gap 11 (10-20) BUN 18 H (7-17) mg/dL Creatinine 0.6 L (0.7-1.2) mg/dL Est GFR ( Amer) > 60 Est GFR (Non-Af Amer) > 60 Random Glucose 111 H (65-105) mg/dL Calcium 7.8 L (8.6-10.4) mg/dl Phosphorus 2.4 L (2.5-4.5) mg/dL Magnesium 1.9 (1.6-2.3) mg/dL Total Bilirubin 1.0 (0.2-1.3) mg/dL AST 33 (14-36) U/L ALT 38 (9-52) U/L Alkaline Phosphatase 149 H D (38-126) U/L Total Protein 5.1 L (6.3-8.3) g/dL Albumin 2.1 L (3.5-5.0) g/dL Globulin 3.0 (2.2-3.9) gm/dL Albumin/Globulin Ratio 0.7 L (1.0-2.1) Thyroid Stim Immunoglob <89 (<140) % baseline ACTH (6-50) pg/mL Thyroperoxidase Ab 1 (<9) IU/mL 07/01/17 Range/Units 06:17 WBC (4.8-10.8) K/uL RBC (3.80-5.20) Mil/uL Hgb (11.0-16.0) g/dL Hct (34.0-47.0) % MCV (81.0-99.0) fL MCH (27.0-31.0) pg MCHC (33.0-37.0) g/dL RDW (11.5-14.5) % Plt Count (130-400) K/uL MPV (7.2-11.7) fL Neut % (Auto) (50.0-75.0) % Lymph % (Auto) (20.0-40.0) % Jones % (Auto) (0.0-10.0) % Eos % (Auto) (0.0-4.0) % Baso % (Auto) (0.0-2.0) % Neut # (Auto) (1.8-7.0) K/uL Lymph # (Auto) (1.0-4.3) K/uL Jones # (Auto) (0.0-0.8) K/uL Eos # (Auto) (0.0-0.7) K/uL Baso # (Auto) (0.0-0.2) K/uL Neutrophils % (Manual) (50-75) % Band Neutrophils % (0-2) % Lymphocytes % (Manual) (20-40) % Monocytes % (Manual) (0-10) % Eosinophils % (Manual) (0-4) % Myelocytes % (0-0) % Toxic Granulation Platelet Estimate (NORMAL) Large Platelets Hypochromasia (manual) Poikilocytosis (manual Anisocytosis (manual) Target Cells Ovalocytes [place] Cells Acanthocytes (Spur) Schistocytes Sodium (132-148) mmol/L Potassium (3.6-5.2) mmol/L Chloride (98-107) mmol/L Carbon Dioxide (22-30) mmol/L Anion Gap (10-20) BUN (7-17) mg/dL Creatinine (0.7-1.2) mg/dL Est GFR ( Amer) Est GFR (Non-Af Amer) Random Glucose (65-105) mg/dL Calcium (8.6-10.4) mg/dl Phosphorus (2.5-4.5) mg/dL Magnesium (1.6-2.3) mg/dL Total Bilirubin (0.2-1.3) mg/dL AST (14-36) U/L ALT (9-52) U/L Alkaline Phosphatase (38-126) U/L Total Protein (6.3-8.3) g/dL Albumin (3.5-5.0) g/dL Globulin (2.2-3.9) gm/dL Albumin/Globulin Ratio (1.0-2.1) Thyroid Stim Immunoglob (<140) % baseline ACTH 52 H (6-50) pg/mL Thyroperoxidase Ab (<9) IU/mL Laboratory Results - last 24 hr 07/01/17 07/01/17 07/03/17 06:17 07:27 06:05 WBC RBC Hgb Hct MCV MCH MCHC RDW Plt Count MPV Neut % (Auto) Lymph % (Auto) Jones % (Auto) Eos % (Auto) Baso % (Auto) Neut # (Auto) Lymph # (Auto) Jones # (Auto) Eos # (Auto) Baso # (Auto) Neutrophils % (Manual) Band Neutrophils % Lymphocytes % (Manual) Monocytes % (Manual) Eosinophils % (Manual) Myelocytes % Toxic Granulation Platelet Estimate Large Platelets Hypochromasia (manual) Poikilocytosis (manual Anisocytosis (manual) Target Cells Ovalocytes Eli Cells Acanthocytes (Spur) Schistocytes Sodium 129 L Potassium 3.6 Chloride 99 Carbon Dioxide 23 Anion Gap 11 BUN 18 H Creatinine 0.6 L Est GFR ( Amer) > 60 Est GFR (Non-Af Amer) > 60 Random Glucose 111 H Calcium 7.8 L Phosphorus 2.4 L Magnesium 1.9 Total Bilirubin 1.0 AST 33 ALT 38 Alkaline Phosphatase 149 H D Total Protein 5.1 L Albumin 2.1 L Globulin 3.0 Albumin/Globulin Ratio 0.7 L Thyroid Stim Immunoglob <89 ACTH 52 H Thyroperoxidase Ab 1 07/03/17 06:07 WBC 16.5 H RBC 3.03 L Hgb 8.7 L Hct 26.3 L MCV 86.7 MCH 28.8 MCHC 33.2 RDW 16.6 H Plt Count 157 MPV 10.7 Neut % (Auto) 95.6 H Lymph % (Auto) 2.5 L Jones % (Auto) 1.0 Eos % (Auto) 0.8 Baso % (Auto) 0.1 Neut # (Auto) 15.8 H Lymph # (Auto) 0.4 L Jones # (Auto) 0.2 Eos # (Auto) 0.1 Baso # (Auto) 0.0 Neutrophils % (Manual) 37 L Band Neutrophils % 56 H* Lymphocytes % (Manual) 3 L Monocytes % (Manual) 2 Eosinophils % (Manual) 1 Myelocytes % 1 H Toxic Granulation Present Platelet Estimate Normal Large Platelets Present Hypochromasia (manual) Slight Poikilocytosis (manual Moderate Anisocytosis (manual) Slight Target Cells Slight Ovalocytes Slight [place] Cells Moderate Acanthocytes (Spur) Slight Schistocytes Slight Sodium Potassium Chloride Carbon Dioxide Anion Gap BUN Creatinine Est GFR ( Amer) Est GFR (Non-Af Amer) Random Glucose Calcium Phosphorus Magnesium Total Bilirubin AST ALT Alkaline Phosphatase Total Protein Albumin Globulin Albumin/Globulin Ratio Thyroid Stim Immunoglob ACTH Thyroperoxidase Ab Critical Care Progress Note - Nutrition Nutrition: Nutrition Category Date Time Status Heart Healthy Diet [DIET] Diets 06/27/17 Dinner Active Attending/Attestation - Attestation I have personally seen and examined this patient.: Yes I have fully participated in the care of the patient.: Yes I have reviewed all pertinent clinical information: Yes Notes (Text): 07/03/17 17:39 I have seen and examined the patient. Medical records, lab studies, and imaging were reviewed by me and a management plan was formulated on multidisciplinary rounds with resident Dr. Schwartz. I agree with their documented assessment and plan. Patient is doing better clinically. Will wean off of BIPAP. Continue diuretics for diastolic CHF. Critical Care Time 35 minutes. Multi-disciplinary rounds were performed with house staff, nursing, speech therapy, respiratory therapy, pharmacy and nutrition with integrated input from the primary team/attending and other consulting services. The documented time is cumulative and includes review of patient data/exams/labs/chart review and examination of the patient on rounds and throughout the day; time is exclusive of any procedures or teaching time.
--- NOTE | 2017-07-03 18:41 | CP.PCM.PN ---
Subjective - Date & Time of Evaluation Date of Evaluation: 07/03/17 Time of Evaluation: 10:15 Objective - Vital Signs/Intake and Output Vital Signs (last 24 hours): Temp Pulse Resp BP Pulse Ox 98 F 101 H 25 H 106/64 100 07/03/17 04:00 07/03/17 16:56 07/03/17 16:56 07/03/17 18:10 07/03/17 16:56 Intake and Output: 07/03/17 07/03/17 06:59 18:59 Intake Total 841.6 20.3 Output Total 810 Balance 31.6 20.3 - Medications Medications: Current Medications Acetaminophen (Tylenol 325mg Tab) 650 mg PO Q4 PRN PRN Reason: blood transfusion Last Admin: 07/01/17 09:55 Dose: 650 mg Albuterol/Ipratropium (Duoneb 3 Mg/0.5 Mg (3 Ml) Ud) 3 ml INH RQ6 [facility] Last Admin: 07/03/17 13:40 Dose: Not Given Apixaban (Eliquis) 5 mg PO BID [facility] Last Admin: 06/24/17 11:18 Dose: 5 mg Aspirin (Aspirin Chewable) 81 mg PO DAILY [facility] Last Admin: 06/24/17 11:18 Dose: 81 mg Dicyclomine HCl (Bentyl) 10 mg PO BID [facility] Last Admin: 07/03/17 10:48 Dose: 10 mg Digoxin (Lanoxin) 0.25 mg IVP Q12 [facility] Stop: 07/03/17 23:59 Last Admin: 07/03/17 10:47 Dose: 0.25 mg Diltiazem HCl (Cardizem) 30 mg PO Q6H [facility] Last Admin: 07/03/17 14:05 Dose: Not Given Furosemide (Lasix) 20 mg IVP ONCE PRN PRN Reason: before transfusion Last Admin: 06/29/17 01:27 Dose: 20 mg Furosemide (Lasix) 20 mg PO BID [facility] Last Admin: 07/03/17 18:10 Dose: 20 mg Guaifenesin/Dextromethorphan (Robitussin Dm) 5 ml PO Q6H PRN PRN Reason: Cough Heparin Sodium (Porcine) (Heparin) 5,000 units SC Q8 [facility] Metronidazole (Flagyl) 500 mg in 100 mls @ 100 mls/hr IVPB Q8 [facility] Last Admin: 07/03/17 13:45 Dose: 100 mls/hr Fluconazole (Diflucan Iv 200 Mg/100 Ml Ns) 100 mls @ 100 mls/hr IVPB DAILY [facility] Last Admin: 07/03/17 10:00 Dose: 100 mls/hr Cefepime HCl (Maxipime Iv 1 Gm Premix) 1 gm in 50 mls @ 100 mls/hr IVPB Q12H [facility] Last Admin: 07/03/17 12:43 Dose: 100 mls/hr Phenylephrine HCl 30 mg/ (Sodium Chloride) 253 mls @ 10.12 mls/hr IV .Q24H PRN ; Protocol; 20 MCG/MIN PRN Reason: TITRATE PER MD ORDER Last Titration: 07/02/17 06:00 Dose: 0 mcg/min, 0 mls/hr Norepinephrine Bitartrate 4 mg (/ Sodium Chloride) 254 mls @ 15.24 mls/hr IV .[id number] PRN; Protocol; 4 MCG/MIN PRN Reason: TITRATE PER MD ORDER Last Titration: 07/03/17 11:05 Dose: 0 mcg/min, 0 mls/hr Lactated Ringer's (Lactated Ringer's) 1,000 mls @ 75 mls/hr IV .[id number] [facility] Last Admin: 07/03/17 13:00 Dose: 75 mls/hr Losartan Potassium (Cozaar) 25 mg PO DAILY [facility] Last Admin: 06/28/17 10:02 Dose: Not Given Methimazole (Tapazole) 5 mg PO DAILY [facility] Last Admin: 07/03/17 10:48 Dose: 5 mg Methylprednisolone (Solu-Medrol) 40 mg IVP Q4 PRN PRN Reason: Other Last Admin: 06/29/17 01:26 Dose: 40 mg Metoprolol Succinate (Toprol Xl) 25 mg PO DAILY [facility] Last Admin: 06/24/17 11:19 Dose: 25 mg Multivitamins (Hexavitamin) 1 tab PO DAILY [facility] Last Admin: 07/03/17 10:48 Dose: 1 tab Vancomycin HCl (Vancocin (Oral Or Rectal Use)) 250 mg PO QID [facility] Last Admin: 07/03/17 18:15 Dose: 250 mg - Labs Labs: 07/03/17 06:07 07/03/17 06:05 PT 18.2 SECONDS (9.7-12.2) H 06/27/17 11:09 INR 1.6 06/27/17 11:09 APTT 34 SECONDS (21-34) 06/15/17 13:26 Assessment and Plan (1) SOB (shortness of breath) Status: Acute (2) Myelodysplasia (myelodysplastic syndrome) Status: Acute
--- NOTE | 2017-07-03 18:42 | CP.PCM.PN ---
Subjective - Date & Time of Evaluation Date of Evaluation: 07/03/17 Time of Evaluation: 08:40 - Subjective Subjective: still dyspneic but less no chest pain remains pressor dependent +anasarca Tele- afib rate 85bpm LOW ALBUMIN Objective - Vital Signs/Intake and Output Vital Signs (last 24 hours): Temp Pulse Resp BP Pulse Ox 98 F 101 H 25 H 106/64 100 07/03/17 04:00 07/03/17 16:56 07/03/17 16:56 07/03/17 18:10 07/03/17 16:56 Intake and Output: 07/03/17 07/03/17 06:59 18:59 Intake Total 841.6 20.3 Output Total 810 Balance 31.6 20.3 - Medications Medications: Current Medications Acetaminophen (Tylenol 325mg Tab) 650 mg PO Q4 PRN PRN Reason: blood transfusion Last Admin: 07/01/17 09:55 Dose: 650 mg Albuterol/Ipratropium (Duoneb 3 Mg/0.5 Mg (3 Ml) Ud) 3 ml INH RQ6 [facility] [place] Last Admin: 07/03/17 13:40 Dose: Not Given Apixaban (Eliquis) 5 mg PO BID [facility] [place] Last Admin: 06/24/17 11:18 Dose: 5 mg Aspirin (Aspirin Chewable) 81 mg PO DAILY [facility] [place] Last Admin: 06/24/17 11:18 Dose: 81 mg Dicyclomine HCl (Bentyl) 10 mg PO BID [facility] [place] Last Admin: 07/03/17 10:48 Dose: 10 mg Digoxin (Lanoxin) 0.25 mg IVP Q12 [facility] [place] Stop: 07/03/17 23:59 Last Admin: 07/03/17 10:47 Dose: 0.25 mg Diltiazem HCl (Cardizem) 30 mg PO Q6H [facility] [place] Last Admin: 07/03/17 14:05 Dose: Not Given Furosemide (Lasix) 20 mg IVP ONCE PRN PRN Reason: before transfusion Last Admin: 06/29/17 01:27 Dose: 20 mg Furosemide (Lasix) 20 mg PO BID [facility] [place] Last Admin: 07/03/17 18:10 Dose: 20 mg Guaifenesin/Dextromethorphan (Robitussin Dm) 5 ml PO Q6H PRN PRN Reason: Cough Heparin Sodium (Porcine) (Heparin) 5,000 units SC Q8 [facility] [place] Metronidazole (Flagyl) 500 mg in 100 mls @ 100 mls/hr IVPB Q8 [facility] [place] Last Admin: 07/03/17 13:45 Dose: 100 mls/hr Fluconazole (Diflucan Iv 200 Mg/100 Ml Ns) 100 mls @ 100 mls/hr IVPB DAILY [facility] [place] Last Admin: 07/03/17 10:00 Dose: 100 mls/hr Cefepime HCl (Maxipime Iv 1 Gm Premix) 1 gm in 50 mls @ 100 mls/hr IVPB Q12H [facility] [place] Last Admin: 07/03/17 12:43 Dose: 100 mls/hr Phenylephrine HCl 30 mg/ (Sodium Chloride) 253 mls @ 10.12 mls/hr IV .Q24H PRN ; Protocol; 20 MCG/MIN PRN Reason: TITRATE PER MD ORDER Last Titration: 07/02/17 06:00 Dose: 0 mcg/min, 0 mls/hr Norepinephrine Bitartrate 4 mg (/ Sodium Chloride) 254 mls @ 15.24 mls/hr IV .[id number] PRN; Protocol; 4 MCG/MIN PRN Reason: TITRATE PER MD ORDER Last Titration: 07/03/17 11:05 Dose: 0 mcg/min, 0 mls/hr Lactated Ringer's (Lactated Ringer's) 1,000 mls @ 75 mls/hr IV .[id number] [facility] [place] Last Admin: 07/03/17 13:00 Dose: 75 mls/hr Losartan Potassium (Cozaar) 25 mg PO DAILY [facility] [place] Last Admin: 06/28/17 10:02 Dose: Not Given Methimazole (Tapazole) 5 mg PO DAILY [facility] [place] Last Admin: 07/03/17 10:48 Dose: 5 mg Methylprednisolone (Solu-Medrol) 40 mg IVP Q4 PRN PRN Reason: Other Last Admin: 06/29/17 01:26 Dose: 40 mg Metoprolol Succinate (Toprol Xl) 25 mg PO DAILY [facility] [place] Last Admin: 06/24/17 11:19 Dose: 25 mg Multivitamins (Hexavitamin) 1 tab PO DAILY [facility] [place] Last Admin: 07/03/17 10:48 Dose: 1 tab Vancomycin HCl (Vancocin (Oral Or Rectal Use)) 250 mg PO QID [facility] [place] Last Admin: 07/03/17 18:15 Dose: 250 mg - Labs Labs: 07/03/17 06:07 07/03/17 06:05 PT 18.2 SECONDS (9.7-12.2) H 06/27/17 11:09 INR 1.6 06/27/17 11:09 APTT 34 SECONDS (21-34) 06/15/17 13:26 - Constitutional Appears: Chronically Ill - Eye Exam Eye Exam: absent: Scleral icterus - Neck Exam Neck Exam: Full ROM. absent: Lymphadenopathy - Respiratory Exam Respiratory Exam: Decreased Breath Sounds, Rales - Cardiovascular Exam Cardiovascular Exam: Irregular Rhythm - GI/Abdominal Exam GI & Abdominal Exam: Soft Additional comments: +edema - Extremities Exam Additional comments: +pedal edema all the way to the abdominal area - Neurological Exam Neurological Exam: Alert Assessment and Plan - Assessment and Plan (Free Text) Assessment: Anasarca Septic shock T2dm Afib Plan: Cont pressors, antibiotic Case discussed w/ daughter Afua Womack re: DNR. She will talk with the rest of the family. She's against intubating the patient if she turn for the worse. long-term prognosis POOR.
[2017-07-03] MEDS: guaiFENesin DM 100 mg-10 mg/5 ml UD PO PRN (18:43)
--- NOTE | 2017-07-03 19:09 | CP.PCM.PN ---
Subjective - Date & Time of Evaluation Date of Evaluation: 07/03/17 Time of Evaluation: 09:00 - Subjective Subjective: AFEB NO NEW POSITIVE CULTURES IV RX IN PROGRESS ORDERS RENEWED PPOR PROGNOSIS Objective - Vital Signs/Intake and Output Vital Signs (last 24 hours): Temp Pulse Resp BP Pulse Ox 98 F 101 H 25 H 106/64 100 07/03/17 04:00 07/03/17 16:56 07/03/17 16:56 07/03/17 18:10 07/03/17 16:56 Intake and Output: 07/03/17 07/04/17 18:59 06:59 Intake Total 20.3 Balance 20.3 - Medications Medications: Current Medications Acetaminophen (Tylenol 325mg Tab) 650 mg PO Q4 PRN PRN Reason: blood transfusion Last Admin: 07/01/17 09:55 Dose: 650 mg Albuterol/Ipratropium (Duoneb 3 Mg/0.5 Mg (3 Ml) Ud) 3 ml INH RQ6 [facility] Last Admin: 07/03/17 13:40 Dose: Not Given Apixaban (Eliquis) 5 mg PO BID [facility] Last Admin: 06/24/17 11:18 Dose: 5 mg Aspirin (Aspirin Chewable) 81 mg PO DAILY [facility] Last Admin: 06/24/17 11:18 Dose: 81 mg Dicyclomine HCl (Bentyl) 10 mg PO BID [facility] Last Admin: 07/03/17 10:48 Dose: 10 mg Digoxin (Lanoxin) 0.25 mg IVP Q12 [facility] Stop: 07/03/17 23:59 Last Admin: 07/03/17 10:47 Dose: 0.25 mg Diltiazem HCl (Cardizem) 30 mg PO Q6H [facility] Last Admin: 07/03/17 14:05 Dose: Not Given Furosemide (Lasix) 20 mg IVP ONCE PRN PRN Reason: before transfusion Last Admin: 06/29/17 01:27 Dose: 20 mg Furosemide (Lasix) 20 mg PO BID [facility] Last Admin: 07/03/17 18:10 Dose: 20 mg Guaifenesin/Dextromethorphan (Robitussin Dm) 5 ml PO Q6H PRN PRN Reason: Cough Last Admin: 07/03/17 18:43 Dose: 5 ml Heparin Sodium (Porcine) (Heparin) 5,000 units SC Q8 [facility] Metronidazole (Flagyl) 500 mg in 100 mls @ 100 mls/hr IVPB Q8 [facility] Last Admin: 07/03/17 13:45 Dose: 100 mls/hr Fluconazole (Diflucan Iv 200 Mg/100 Ml Ns) 100 mls @ 100 mls/hr IVPB DAILY [facility] Last Admin: 07/03/17 10:00 Dose: 100 mls/hr Cefepime HCl (Maxipime Iv 1 Gm Premix) 1 gm in 50 mls @ 100 mls/hr IVPB Q12H [facility] Last Admin: 07/03/17 12:43 Dose: 100 mls/hr Phenylephrine HCl 30 mg/ (Sodium Chloride) 253 mls @ 10.12 mls/hr IV .Q24H PRN ; Protocol; 20 MCG/MIN PRN Reason: TITRATE PER MD ORDER Last Titration: 07/02/17 06:00 Dose: 0 mcg/min, 0 mls/hr Norepinephrine Bitartrate 4 mg (/ Sodium Chloride) 254 mls @ 15.24 mls/hr IV .[id number] PRN; Protocol; 4 MCG/MIN PRN Reason: TITRATE PER MD ORDER Last Titration: 07/03/17 11:05 Dose: 0 mcg/min, 0 mls/hr Lactated Ringer's (Lactated Ringer's) 1,000 mls @ 75 mls/hr IV .[id number] [facility] Last Admin: 07/03/17 13:00 Dose: 75 mls/hr Losartan Potassium (Cozaar) 25 mg PO DAILY [facility] Last Admin: 06/28/17 10:02 Dose: Not Given Methimazole (Tapazole) 5 mg PO DAILY [facility] Last Admin: 07/03/17 10:48 Dose: 5 mg Methylprednisolone (Solu-Medrol) 40 mg IVP Q4 PRN PRN Reason: Other Last Admin: 06/29/17 01:26 Dose: 40 mg Metoprolol Succinate (Toprol Xl) 25 mg PO DAILY [facility] Last Admin: 06/24/17 11:19 Dose: 25 mg Multivitamins (Hexavitamin) 1 tab PO DAILY [facility] Last Admin: 07/03/17 10:48 Dose: 1 tab Vancomycin HCl (Vancocin (Oral Or Rectal Use)) 250 mg PO QID [facility] Last Admin: 02/22/18 18:15 Dose: 250 mg - Labs Labs: 07/03/17 06:07 07/03/17 06:05 PT 18.2 SECONDS (9.7-12.2) H 06/27/17 11:09 INR 1.6 06/27/17 11:09 APTT 34 SECONDS (21-34) 06/15/17 13:26 - Constitutional Appears: Confused, Cachectic, Chronically Ill - Head Exam Head Exam: NORMOCEPHALIC - Eye Exam Eye Exam: PERRL - ENT Exam ENT Exam: Mucous Membranes Dry - Neck Exam Neck Exam: absent: Lymphadenopathy - Respiratory Exam Respiratory Exam: Decreased Breath Sounds - Cardiovascular Exam Cardiovascular Exam: REGULAR RHYTHM - GI/Abdominal Exam GI & Abdominal Exam: Distended - Rectal Exam Rectal Exam: Deferred Assessment and Plan (1) CHF (congestive heart failure) Status: Acute (2) Rapid atrial fibrillation Status: Acute (3) CAD (coronary artery disease) Status: Acute (4) Cough Status: Acute (5) Dehydration Status: Acute (6) Hyponatremia Status: Acute (7) Lower respiratory infection Status: Acute (8) Myelodysplasia (myelodysplastic syndrome) Status: Acute
[2017-07-04] MEDS: Albuterol-Ipratrop 3 mg / 0.5 (3 ml) UD INH SCH ×4 (01:52→19:36)
[2017-07-04] MEDS: Lactated Ringer's 1,000 ML IV SCH ×2 (02:30→05:30)
[2017-07-04] MEDS: metroNIDAZOLE IV 500 mg/100 ml 500 MG/100 ML BAG IVPB SCH ×3 (06:00→21:55)
[2017-07-04 06:37] LABS: EOS # 0.1 K/uL (0.0-0.7); EOS % 0.8 % (0.0-4.0); HEMOGLOBIN 8.8 g/dL (11.0-16.0); LYMPH # 0.9 K/uL (1.0-4.3); LYMPH % 12.4 % (20.0-40.0); MEAN CELL VOLUME 85.1 fL (81.0-99.0); MEAN CORPUSCULAR HEMOGLOBIN 29.4 pg (27.0-31.0); MEAN CORPUSCULAR HGB CONC 34.5 g/dL (33.0-37.0); MEAN PLATELET VOLUME 10.5 fL (7.2-11.7); MONO # 0.1 K/uL (0.0-0.8); NEUT # 6.4 K/uL (1.8-7.0); NEUT % 85.8 % (50.0-75.0); NRBC % 0.2 % (0.0-2.0); PLATELET COUNT 133 K/uL (130-400); RBC 2.99 Mil/uL (3.80-5.20); RED CELL DISTRIBUTION WIDTH 16.1 % (11.5-14.5); WHITE BLOOD COUNT 7.5 K/uL (4.8-10.8)
[2017-07-04 06:57] LABS: ALB/GLOB RATIO 0.7 (1.0-2.1); ALBUMIN 2.1 g/dL (3.5-5.0); ALT/SGPT 35 U/L (9-52); AST/SGOT 33 U/L (14-36); BLOOD UREA NITROGEN 13 mg/dL (7-17); CALCIUM 7.9 mg/dl (8.6-10.4); GFR AFRICAN-AMERICAN > 60; GFR NON-AFRICAN AMERICAN > 60; MAGNESIUM 1.8 mg/dL (1.6-2.3)
--- NOTE | 2017-07-04 07:19 | PN ---
DATE: ENDOCRINOLOGY FOLLOWUP NOTE LOCATION: ICU Room 8. This is a 77-year-old female with recent acute exacerbation of congestive heart failure with supervening rapid atrial fibrillation, and has been transferred to ICU for closer hemodynamic monitoring because of persistent tachycardia and hypotension. She has still not improved clinically and hemodynamically as noted thereof. The latest chemistry showed a BUN of 19, sodium 129, potassium 3.8, chloride 99, CO2 of 19, glucose 92, and creatinine 0.8. Her latest thyroid study showed a T4 of 5.0 with a TSH of 3.52 and a free T4 of 0.91. Her serum cortisol level is 18.0 mcg/dL, so she remains clinically and biochemically euthyroid at this time. We will continue the same low dose medical therapy with thioureas using Tapazole at 5 mg once daily as ordered. We will titrate incrementally as indicated to optimize metabolic control. We will follow and advised accordingly. Marely Raymundo MD
--- NOTE | 2017-07-04 08:23 | CP.PCM.PN ---
Subjective - Date & Time of Evaluation Date of Evaluation: 07/04/17 Time of Evaluation: 08:21 - Subjective Subjective: Patient on BIPAP. No CP, no SOB, no cough, (+) soft stool Rapid Af and now slight tachy Objective - Vital Signs/Intake and Output Vital Signs (last 24 hours): Temp Pulse Resp BP Pulse Ox 99.2 F 85 24 121/57 L 65 L 07/04/17 04:00 07/04/17 07:54 07/04/17 07:00 07/04/17 06:55 07/04/17 07:00 Intake and Output: 07/04/17 07/04/17 06:59 18:59 Intake Total 1075 75 Balance 1075 75 - Medications Medications: Current Medications Acetaminophen (Tylenol 325mg Tab) 650 mg PO Q4 PRN PRN Reason: blood transfusion Last Admin: 07/01/17 09:55 Dose: 650 mg Albuterol/Ipratropium (Duoneb 3 Mg/0.5 Mg (3 Ml) Ud) 3 ml INH RQ6 [facility] Last Admin: 07/04/17 07:53 Dose: 3 ml Apixaban (Eliquis) 5 mg PO BID [facility] Last Admin: 06/24/17 11:18 Dose: 5 mg Aspirin (Aspirin Chewable) 81 mg PO DAILY [facility] Last Admin: 06/24/17 11:18 Dose: 81 mg Dicyclomine HCl (Bentyl) 10 mg PO BID [facility] Last Admin: 07/03/17 18:00 Dose: 10 mg Diltiazem HCl (Cardizem) 30 mg PO Q6H [facility] Last Admin: 07/04/17 03:30 Dose: 30 mg Furosemide (Lasix) 20 mg IVP ONCE PRN PRN Reason: before transfusion Last Admin: 06/29/17 01:27 Dose: 20 mg Furosemide (Lasix) 20 mg PO BID [facility] Last Admin: 07/03/17 18:10 Dose: 20 mg Guaifenesin/Dextromethorphan (Robitussin Dm) 5 ml PO Q6H PRN PRN Reason: Cough Last Admin: 07/03/17 18:43 Dose: 5 ml Heparin Sodium (Porcine) (Heparin) 5,000 units SC Q8 [facility] Last Admin: 07/04/17 06:01 Dose: 5,000 units Metronidazole (Flagyl) 500 mg in 100 mls @ 100 mls/hr IVPB Q8 [facility] Last Admin: 07/04/17 06:00 Dose: 100 mls/hr Cefepime HCl (Maxipime Iv 1 Gm Premix) 1 gm in 50 mls @ 100 mls/hr IVPB Q12H [facility] Last Admin: 07/04/17 00:00 Dose: 100 mls/hr Phenylephrine HCl 30 mg/ (Sodium Chloride) 253 mls @ 10.12 mls/hr IV .Q24H PRN ; Protocol; 20 MCG/MIN PRN Reason: TITRATE PER MD ORDER Last Titration: 07/02/17 06:00 Dose: 0 mcg/min, 0 mls/hr Norepinephrine Bitartrate 4 mg (/ Sodium Chloride) 254 mls @ 15.24 mls/hr IV .[id number] PRN; Protocol; 4 MCG/MIN PRN Reason: TITRATE PER MD ORDER Last Titration: 07/03/17 11:05 Dose: 0 mcg/min, 0 mls/hr Lactated Ringer's (Lactated Ringer's) 1,000 mls @ 75 mls/hr IV .[id number] [facility] Last Admin: 07/04/17 05:30 Dose: 75 mls/hr Fluconazole (Diflucan Iv 200 Mg/100 Ml Ns) 100 mls @ 100 mls/hr IVPB DAILY [facility] Losartan Potassium (Cozaar) 25 mg PO DAILY [facility] Last Admin: 06/28/17 10:02 Dose: Not Given Methimazole (Tapazole) 5 mg PO DAILY [facility] Last Admin: 07/03/17 10:48 Dose: 5 mg Methylprednisolone (Solu-Medrol) 40 mg IVP Q4 PRN PRN Reason: Other Last Admin: 06/29/17 01:26 Dose: 40 mg Metoprolol Succinate (Toprol Xl) 25 mg PO DAILY [facility] Last Admin: 06/24/17 11:19 Dose: 25 mg Multivitamins (Hexavitamin) 1 tab PO DAILY [facility] Last Admin: 07/03/17 10:48 Dose: 1 tab Vancomycin HCl (Vancocin (Oral Or Rectal Use)) 250 mg PO QID [facility] Last Admin: 07/03/17 22:03 Dose: 125 mg - Labs Labs: 07/04/17 06:30 07/04/17 06:29 PT 18.2 SECONDS (9.7-12.2) H 06/27/17 11:09 INR 1.6 06/27/17 11:09 APTT 34 SECONDS (21-34) 06/15/17 13:26 - Constitutional Appears: No Acute Distress - Eye Exam Eye Exam: Normal appearance - ENT Exam ENT Exam: Mucous Membranes Moist - Neck Exam Neck Exam: Full ROM. absent: Lymphadenopathy, Thyromegaly - Respiratory Exam Respiratory Exam: Decreased Breath Sounds, Rales. absent: Rhonchi, Wheezes - Cardiovascular Exam Cardiovascular Exam: REGULAR RHYTHM, +S1, +S2. absent: Gallop, JVD - GI/Abdominal Exam GI & Abdominal Exam: Soft. absent: Tenderness, Mass - Extremities Exam Extremities Exam: Full ROM, Normal Capillary Refill. absent: Calf Tenderness, Joint Swelling Assessment and Plan - Assessment and Plan (Free Text) Assessment: Sepsis ? Source Recent C diff; PE AF, HTN, MDS Supportive care Poor prognosis
--- NOTE | 2017-07-04 08:38 | RAD ---
HISTORY: pna COMPARISON: 07/02/2017 FINDINGS: LUNGS: No active pulmonary disease. PLEURA: No significant pleural effusion identified, no pneumothorax apparent. CARDIOVASCULAR: Right subclavian central venous catheter unchanged. OSSEOUS STRUCTURES: No significant abnormalities. VISUALIZED UPPER ABDOMEN: Normal. OTHER FINDINGS: None. IMPRESSION: No active disease.
[2017-07-04] MEDS: Acetaminophen 650mg/20.3ml solution UD PO PRN (08:51)
[2017-07-04] MEDS: methIMAzole 5 MG TAB PO SCH (09:01)
[2017-07-04] MEDS: Multiple Vitamins Tab PO SCH (09:05)
[2017-07-04] MEDS: Vancomycin 125 MG/5 ML SOLN (ORAL/RECTAL) PO SCH ×4 (09:07→21:55)
[2017-07-04] MEDS ORDERED: Albumin Human 25% (12.5 gm/50 ml) IV ONE ×2 (09:15→10:30)
[2017-07-04] MEDS: Fluconazole IV 200mg/100 ml NS 100 ML IVPB SCH (10:27)
[2017-07-04 11:37] LABS: BANDS 35 % (0-2); EOSINOPHIL 1 % (0-4); LYMPHOCYTE 9 % (20-40); MONOCYTE 6 % (0-10); NEUTROPHIL 49 % (50-75); TOTAL CELLS COUNTED 100
[2017-07-04 11:38] LABS: ANISOCYTOSIS SLIGHT; HYPOCHROMIC SLIGHT; PLATELET ESTIMATE NORMAL (NORMAL); POLYCHROMIC SLIGHT; SCHISTOCYTES SLIGHT; TARGET CELLS SLIGHT
[2017-07-04 11:39] LABS: OVALOCYTES SLIGHT; TEARDROP CELLS SLIGHT
[2017-07-04] MEDS: Cefepime IV 1 gm in Dextrose 1 GM/50 ML BAG IVPB SCH ×2 (12:01)
--- NOTE | 2017-07-04 12:38 | CARD ---
APPROVED REPORT EKG Measurement Heart [id number] <Conclusion> Atrial fibrillation with rapid ventricular response Low voltage QRS ST & T wave abnormality, consider lateral ischemia Abnormal ECG
[2017-07-04] MEDS ORDERED: Albumin Human 5% (12.5 gm/250 ml) IV ONE (12:45)
--- NOTE | 2017-07-04 14:06 | CP.CCUPN ---
<Shlomo Reddy - Last Filed: 07/04/17 14:01> CCU Subjective - Physician Review Subjective (Free Text): Patient seen and examined. Appears drowsy. AAOx3. Intermittently requires bipap (becomes tachypnic if off bipap for more than a few hours). Giave lasix 40mg IV today, will increase PO Lasix to 40mg BID. Gave albumin 12.5mg x3 as patient was becoming hypotensive (likely due to the lasix). CT abd reviewed and possibly inflammatory process going on in gallbladder - which correlates with her elevated alk phos and T bili. Will obtain abdominal ultrasound and consult general surgery, Dr Crooks. Family meeting soon to discuss code status. Denies chest pain, cough, diarrhea, dysuria. CCU Objective - Vital Signs / Intake & Output Vital Signs (Last 4 hours): Vital Signs Pulse Resp BP Pulse Ox 07/04/17 12:29 65 22 81/41 L 96 07/04/17 12:03 75 26 H 83/37 L 95 07/04/17 11:55 70 27 H 87/39 L 95 07/04/17 10:07 82 24 92/43 L 92 L Intake and Output (Last 8hrs): Intake & Output 07/03/17 07/04/17 07/04/17 22:59 06:59 14:59 Intake Total 875 650 525 Output Total 200 Balance 675 650 525 Weight 149 lb Intake: Intake, IV Amount 625 600 425 Right Medial Port 625 600 425 Oral 250 50 100 Output: Urine 200 Urine, Voided 200 Other: # Voids Urine, Voided 1 1 # Bowel Movements 1 - Physical Exam Head: Positive for: Atraumatic, Normocephalic Pupils: Positive for: PERRL Extroacular Muscles: Positive for: EOMI Conjunctiva: Positive for: Normal Mouth: Positive for: Moist Mucous Membranes Respiratory/Chest: Positive for: [place] [employer] Cardiovascular: Positive for: Normal S1, S2 Abdomen: Positive for: Normal Bowel Sounds - Medications Active Medications: Active Medications Generic Name Dose Route Start Last Admin Trade Name Freq PRN Reason Stop Dose Admin Acetaminophen 650 mg 06/28/17 13:35 07/01/17 09:55 Tylenol 325mg Tab PO 650 mg Q4 PRN Administration blood transfusion Acetaminophen 650 mg 07/04/17 08:32 07/04/17 08:51 Tylenol 650mg/20.3ml Solution Ud PO 650 mg Q4 PRN Administration Temperature greater than 100.4 Albuterol/Ipratropium 3 ml 06/30/17 08:00 07/04/17 07:53 Duoneb 3 Mg/0.5 Mg (3 Ml) Ud INH 3 ml RQ6 VARINDER Administration Apixaban 5 mg 06/16/17 10:00 06/24/17 11:18 Eliquis PO 5 mg BID VARINDER Administration Aspirin 81 mg 06/16/17 10:00 06/24/17 11:18 Aspirin Chewable PO 81 mg DAILY VARINDER Administration Dicyclomine HCl 10 mg 06/21/17 10:00 07/04/17 09:01 Bentyl PO 10 mg BID VARINDER Administration Diltiazem HCl 30 mg 07/03/17 14:30 07/04/17 08:51 Cardizem PO 30 mg Q6H VARINDER Administration Furosemide 20 mg 06/28/17 15:22 06/29/17 01:27 Lasix IVP 20 mg ONCE PRN Administration before transfusion Furosemide 40 mg 07/04/17 10:15 07/04/17 10:15 Lasix PO Not Given Q12 VARINDER Guaifenesin/Dextromethorphan 5 ml 07/01/17 21:54 07/03/17 18:43 Robitussin Dm PO 5 ml Q6H PRN Administration Cough Heparin Sodium (Porcine) 5,000 units 07/03/17 22:00 07/04/17 06:01 Heparin SC 5,000 units Q8 VARINDER Administration Metronidazole 500 mg in 100 mls @ 100 mls/hr 06/22/17 15:00 07/04/17 06:00 Flagyl IVPB 100 mls/hr Q8 VARINDER Administration Cefepime HCl 1 gm in 50 mls @ 100 mls/hr 06/27/17 12:00 07/04/17 12:01 Maxipime Iv 1 Gm Premix IVPB 100 mls/hr Q12H VARINDER Administration Phenylephrine HCl 30 mg/ 253 mls @ 10.12 mls/hr 07/01/17 17:32 07/02/17 06:00 Sodium Chloride IV 0 mcg/min .Q24H PRN 0 mls/hr TITRATE PER MD ORDER Titration Protocol 20 MCG/MIN Norepinephrine Bitartrate 4 mg 254 mls @ 15.24 mls/hr 07/01/17 23:29 11:05 / Sodium Chloride IV 0 mcg/min .[id number] PRN 0 mls/hr TITRATE PER MD ORDER Titration Protocol 4 MCG/MIN Fluconazole 100 mls @ 100 mls/hr 07/04/17 10:00 07/04/17 10:27 Diflucan Iv 200 Mg/100 Ml Ns IVPB 100 mls/hr DAILY VARINDER Administration Potassium Chloride 20 meq in 100 mls @ 50 mls/hr 07/04/17 13:00 07/04/17 12: 26 Potassium Chloride 20 Meq/100 Ml IVPB 07/04/17 14:59 50 mls/hr ONCE ONE Administration Losartan Potassium 25 mg 06/17/17 21:33 06/28/17 10:02 Cozaar PO Not Given DAILY VARINDER Methimazole 5 mg 06/16/17 10:00 07/04/17 09:01 Tapazole PO 5 mg DAILY VARINDER Administration Methylprednisolone 40 mg 06/28/17 13:38 06/29/17 01:26 Solu-Medrol IVP 40 mg Q4 PRN Administration Other Metoprolol Succinate 25 mg 06/23/17 10:00 06/24/17 11:19 Toprol Xl PO 25 mg DAILY VARINDER Administration Multivitamins 1 tab 06/16/17 10:00 07/04/17 09:05 Hexavitamin PO 1 tab DAILY VARINDER Administration Vancomycin HCl 250 mg 06/19/17 10:00 07/04/17 09:07 Vancocin (Oral Or Rectal Use) PO 250 mg QID VARINDER Administration - Patient Studies Lab Studies: Microbiology Studies 07/01/17 14:00 Blood Culture - Preliminary Blood-Venous NO GROWTH AFTER 48 HOURS 07/01/17 13:30 Blood Culture - Preliminary Blood-Venous NO GROWTH AFTER 48 HOURS Lab Studies 07/04/17 07/04/17 07/01/17 Range/Units 06:30 06:29 07:27 WBC 7.5 D (4.8-10.8) K/uL RBC 2.99 L (3.80-5.20) Mil/uL Hgb 8.8 L (11.0-16.0) g/dL Hct 25.4 L (34.0-47.0) % MCV 85.1 (81.0-99.0) fL MCH 29.4 (27.0-31.0) pg MCHC 34.5 (33.0-37.0) g/dL RDW 16.1 H (11.5-14.5) % Plt Count 133 (130-400) K/uL MPV 10.5 (7.2-11.7) fL Neut % (Auto) 85.8 H (50.0-75.0) % Lymph % (Auto) 12.4 L (20.0-40.0) % Hettinger % (Auto) 1.0 (0.0-10.0) % Eos % (Auto) 0.8 (0.0-4.0) % Baso % (Auto) 0.0 (0.0-2.0) % Neut # (Auto) 6.4 (1.8-7.0) K/uL Lymph # (Auto) 0.9 L (1.0-4.3) K/uL [place] # (Auto) 0.1 (0.0-0.8) K/uL Eos # (Auto) 0.1 (0.0-0.7) K/uL Baso # (Auto) 0.0 (0.0-0.2) K/uL Neutrophils % (Manual) 49 L (50-75) % Band Neutrophils % 35 H* (0-2) % Lymphocytes % (Manual) 9 L (20-40) % Monocytes % (Manual) 6 (0-10) % Eosinophils % (Manual) 1 (0-4) % Platelet Estimate Normal (NORMAL) Polychromasia Slight Hypochromasia (manual) Slight Anisocytosis (manual) Slight Target Cells Slight Tear Drop Cells Slight Ovalocytes Slight Schistocytes Slight Sodium 129 L (132-148) mmol/L Potassium 3.2 L (3.6-5.2) mmol/L Chloride 97 L (98-107) mmol/L Carbon Dioxide 26 (22-30) mmol/L Anion Gap 9 L (10-20) BUN 13 (7-17) mg/dL Creatinine 0.5 L (0.7-1.2) mg/dL Est GFR ( Amer) > 60 Est GFR (Non-Af Amer) > 60 Random Glucose 73 (65-105) mg/dL Calcium 7.9 L (8.6-10.4) mg/dl Phosphorus 2.5 (2.5-4.5) mg/dL Magnesium 1.8 (1.6-2.3) mg/dL Total Bilirubin 1.4 H (0.2-1.3) mg/dL AST 33 (14-36) U/L ALT 35 (9-52) U/L Alkaline Phosphatase 221 H D (38-126) U/L Total Protein 5.2 L (6.3-8.3) g/dL Albumin 2.1 L (3.5-5.0) g/dL Globulin 3.1 (2.2-3.9) gm/dL Albumin/Globulin Ratio 0.7 L (1.0-2.1) Thyroid Stim Immunoglob <89 (<140) % baseline Laboratory Results - last 24 hr 07/01/17 07/04/17 07/04/17 07:27 06:29 06:30 WBC 7.5 D RBC 2.99 L Hgb 8.8 L Hct 25.4 L MCV 85.1 MCH 29.4 MCHC 34.5 RDW 16.1 H Plt Count 133 MPV 10.5 Neut % (Auto) 85.8 H Lymph % (Auto) 12.4 L Hettinger % (Auto) 1.0 Eos % (Auto) 0.8 Baso % (Auto) 0.0 Neut # (Auto) 6.4 Lymph # (Auto) 0.9 L Hettinger # (Auto) 0.1 Eos # (Auto) 0.1 Baso # (Auto) 0.0 Neutrophils % (Manual) 49 L Band Neutrophils % 35 H* Lymphocytes % (Manual) 9 L Monocytes % (Manual) 6 Eosinophils % (Manual) 1 Platelet Estimate Normal Polychromasia Slight Hypochromasia (manual) Slight Anisocytosis (manual) Slight Target Cells Slight Tear Drop Cells Slight Ovalocytes Slight Schistocytes Slight Sodium 129 L Potassium 3.2 L Chloride 97 L Carbon Dioxide 26 Anion Gap 9 L BUN 13 Creatinine 0.5 L Est GFR ( Amer) > 60 Est GFR (Non-Af Amer) > 60 Random Glucose 73 Calcium 7.9 L Phosphorus 2.5 Magnesium 1.8 Total Bilirubin 1.4 H AST 33 ALT 35 Alkaline Phosphatase 221 H D Total Protein 5.2 L Albumin 2.1 L Globulin 3.1 Albumin/Globulin Ratio 0.7 L Thyroid Stim Immunoglob <89 Review of Systems - Review of Systems All systems: reviewed and no additional remarkable complaints except (as above) Critical Care Progress Note - Nutrition Nutrition: Nutrition Category Date Time Status Heart Healthy Diet [DIET] Diets 06/27/17 Dinner Active Assessment/Plan - Assessment and Plan (Free Text) Assessment: 77 year old F with MDS, recent PE (04/2017), CAD, Afib, brought to ICU for shortness of breath. Plan: Infectious Disease: Sepsis - Colitis; Suspect cholecystitis Infectious Disease consult w/ Dr Hernandez General surgery consult w/ Dr Crooks CT chest/abd/pelvix without IV contrast - Extensive wall thickening of the rectum lobe and distal sigmoid colon; correlate for colitis and/or proctitis. Additionally evidence of cecal and the left colonic wall thickening suspicious for colitis. CT chest/abd/pelvis without IV contrast - Suspect tiny gallstone in the gallbladder. Right upper quadrant ultrasound may be considered if indicated. Focal gallbladder wall thickening versus soft tissue density along the gallbladder fundus re-identified. F/U abdominal ultrasound Alk Phos HIGH, T Bili HIGH Procalcitonin HIGH Flagyl 500mg IV TID Vancomycin 250mg PO QID Fluconazole 200mg IV QD Cefepime 1g IV BID Cardio: CAD, Afib, Diastolic CHF Cardiology consult w/ Dr Sosa * recent cardiac cath revealed RCA with large thrombus in the distal RCA. No angioplasty baloon or stent is big enough to open the obstructing thrombus. A decision was made as per Dr Skinner recommendation to treat the patient medically with antiplatelet and anticoagulation. Cardizem 30mg PO QID ProBNP - 5230 ECHO - Normal ECHO. LVSF normal. EF 60%. Venous dopplers LE - normal Pulm: Shortness of breath - COPD vs CHF? Pulm consult w/ Dr Joseph Ivan 3ml INH RQ6 Methylprednisolone 40mg IV Q4H PRN Lasix 40mg PO BID Standing order for lasix 20mg to be given 30 mins prior to future transfusions GI: Positive stool occult GI consult w/ Dr Thurman * Since the EGD and colonoscopy were scheduled last week, Code Sepsis and Rapid Response have been called. I do not think she is stable for the GI workup at this time. Hematology: Anemia, MDS Heme consult w/ Palathingal s/p 2 units pRBC 06/28/17 Procrit [id number] SC TTS Methimazole 5mg PO QD Endo: DM, Chronic SIADH [employer] consult w/ Dr Raymundo Renal consult w/ Dr Tabor Neuro: Neurology consult w/ Sky Moncada PPx: Heparin 5000u SC TID Multivitamin <Juwan Ballard - Last Filed: 07/04/17 18:00> CCU Objective - Vital Signs / Intake & Output Intake and Output (Last 8hrs): Intake & Output 07/04/17 07/04/17 07/04/17 06:59 14:59 22:59 Intake Total 650 525 Balance 650 525 Weight 149 lb Intake: Intake, IV Amount 600 425 Right Medial Port 600 425 Oral 50 100 Other: # Voids Urine, Voided 1 # Bowel Movements 1 - Medications Active Medications: Active Medications Generic Name Dose Route Start Last Admin Trade Name Freq PRN Reason Stop Dose Admin Acetaminophen 650 mg 06/28/17 13:35 07/01/17 09:55 Tylenol 325mg Tab PO 650 mg Q4 PRN Administration blood transfusion Acetaminophen 650 mg 07/04/17 08:32 07/04/17 08:51 Tylenol 650mg/20.3ml Solution Ud PO 650 mg Q4 PRN Administration Temperature greater than 100.4 Albuterol/Ipratropium 3 ml 06/30/17 08:00 07/04/17 14:48 Duoneb 3 Mg/0.5 Mg (3 Ml) Ud INH 3 ml RQ6 VARINDER Administration Apixaban 5 mg 06/16/17 10:00 06/24/17 11:18 Eliquis PO 5 mg BID VARINDER Administration Aspirin 81 mg 06/16/17 10:00 06/24/17 11:18 Aspirin Chewable PO 81 mg DAILY VARINDER Administration Dicyclomine HCl 10 mg 06/21/17 10:00 07/04/17 17:46 Bentyl PO 10 mg BID VARINDER Administration Diltiazem HCl 30 mg 07/03/17 14:30 07/04/17 15:13 Cardizem PO Not Given Q6H VARINDER Furosemide 20 mg 06/28/17 15:22 06/29/17 01:27 Lasix IVP 20 mg ONCE PRN Administration before transfusion Furosemide 40 mg 07/04/17 10:15 07/04/17 10:15 Lasix PO Not Given Q12 VARINDER Guaifenesin/Dextromethorphan 5 ml 07/01/17 21:54 07/03/17 18:43 Robitussin Dm PO 5 ml Q6H PRN Administration Cough Metronidazole 500 mg in 100 mls @ 100 mls/hr 06/22/17 15:00 07/04/17 14:00 Flagyl IVPB 100 mls/hr Q8 VARINDER Administration Cefepime HCl 1 gm in 50 mls @ 100 mls/hr 06/27/17 12:00 07/04/17 12:01 Maxipime Iv 1 Gm Premix IVPB 100 mls/hr Q12H VARINDER Administration Phenylephrine HCl 30 mg/ 253 mls @ 10.12 mls/hr 07/01/17 17:32 07/02/17 06:00 Sodium Chloride IV 0 mcg/min .Q24H PRN 0 mls/hr TITRATE PER MD ORDER Titration Protocol 20 MCG/MIN Norepinephrine Bitartrate 4 mg 254 mls @ 15.24 mls/hr 07/01/17 23:29 11:05 / Sodium Chloride IV 0 mcg/min .[id number] PRN 0 mls/hr TITRATE PER MD ORDER Titration Protocol 4 MCG/MIN Fluconazole 100 mls @ 100 mls/hr 07/04/17 10:00 07/04/17 10:27 Diflucan Iv 200 Mg/100 Ml Ns IVPB 100 mls/hr DAILY VARINDER Administration Methimazole 5 mg 06/16/17 10:00 07/04/17 09:01 Tapazole PO 5 mg DAILY VARINDER Administration Methylprednisolone 40 mg 06/28/17 13:38 06/29/17 01:26 Solu-Medrol IVP 40 mg Q4 PRN Administration Other Multivitamins 1 tab 06/16/17 10:00 07/04/17 09:05 Hexavitamin PO 1 tab DAILY VARINDER Administration Vancomycin HCl 250 mg 06/19/17 10:00 07/04/17 17:39 Vancocin (Oral Or Rectal Use) PO 250 mg QID VARINDER Administration - Patient Studies Lab Studies: Microbiology Studies 07/01/17 14:00 Blood Culture - Preliminary Blood-Venous NO GROWTH AFTER 3 DAYS 07/01/17 13:30 Blood Culture - Preliminary Blood-Venous NO GROWTH AFTER 3 DAYS Lab Studies 07/04/17 07/04/17 Range/Units 06:30 06:29 WBC 7.5 D (4.8-10.8) K/uL RBC 2.99 L (3.80-5.20) Mil/uL Hgb 8.8 L (11.0-16.0) g/dL Hct 25.4 L (34.0-47.0) % MCV 85.1 (81.0-99.0) fL MCH 29.4 (27.0-31.0) pg MCHC 34.5 (33.0-37.0) g/dL RDW 16.1 H (11.5-14.5) % Plt Count 133 (130-400) K/uL MPV 10.5 (7.2-11.7) fL Neut % (Auto) 85.8 H (50.0-75.0) % Lymph % (Auto) 12.4 L (20.0-40.0) % Hettinger % (Auto) 1.0 (0.0-10.0) % Eos % (Auto) 0.8 (0.0-4.0) % Baso % (Auto) 0.0 (0.0-2.0) % Neut # (Auto) 6.4 (1.8-7.0) K/uL Lymph # (Auto) 0.9 L (1.0-4.3) K/uL Hettinger # (Auto) 0.1 (0.0-0.8) K/uL Eos # (Auto) 0.1 (0.0-0.7) K/uL Baso # (Auto) 0.0 (0.0-0.2) K/uL Neutrophils % (Manual) 49 L (50-75) % Band Neutrophils % 35 H* (0-2) % Lymphocytes % (Manual) 9 L (20-40) % Monocytes % (Manual) 6 (0-10) % Eosinophils % (Manual) 1 (0-4) % Platelet Estimate Normal (NORMAL) Polychromasia Slight Hypochromasia (manual) Slight Anisocytosis (manual) Slight Target Cells Slight Tear Drop Cells Slight Ovalocytes Slight Schistocytes Slight Sodium 129 L (132-148) mmol/L Potassium 3.2 L (3.6-5.2) mmol/L Chloride 97 L (98-107) mmol/L Carbon Dioxide 26 (22-30) mmol/L Anion Gap 9 L (10-20) BUN 13 (7-17) mg/dL Creatinine 0.5 L (0.7-1.2) mg/dL Est GFR ( Amer) > 60 Est GFR (Non-Af Amer) > 60 Random Glucose 73 (65-105) mg/dL Calcium 7.9 L (8.6-10.4) mg/dl Phosphorus 2.5 (2.5-4.5) mg/dL Magnesium 1.8 (1.6-2.3) mg/dL Total Bilirubin 1.4 H (0.2-1.3) mg/dL AST 33 (14-36) U/L ALT 35 (9-52) U/L Alkaline Phosphatase 221 H D (38-126) U/L Total Protein 5.2 L (6.3-8.3) g/dL Albumin 2.1 L (3.5-5.0) g/dL Globulin 3.1 (2.2-3.9) gm/dL Albumin/Globulin Ratio 0.7 L (1.0-2.1) Laboratory Results - last 24 hr 07/04/17 07/04/17 06:29 06:30 WBC 7.5 D RBC 2.99 L Hgb 8.8 L Hct 25.4 L MCV 85.1 MCH 29.4 MCHC 34.5 RDW 16.1 H Plt Count 133 MPV 10.5 Neut % (Auto) 85.8 H Lymph % (Auto) 12.4 L Hettinger % (Auto) 1.0 Eos % (Auto) 0.8 Baso % (Auto) 0.0 Neut # (Auto) 6.4 Lymph # (Auto) 0.9 L Hettinger # (Auto) 0.1 Eos # (Auto) 0.1 Baso # (Auto) 0.0 Neutrophils % (Manual) 49 L Band Neutrophils % 35 H* Lymphocytes % (Manual) 9 L Monocytes % (Manual) 6 Eosinophils % (Manual) 1 Platelet Estimate Normal Polychromasia Slight Hypochromasia (manual) Slight Anisocytosis (manual) Slight Target Cells Slight Tear Drop Cells Slight Ovalocytes Slight Schistocytes Slight Sodium 129 L Potassium 3.2 L Chloride 97 L Carbon Dioxide 26 Anion Gap 9 L BUN 13 Creatinine 0.5 L Est GFR ( Amer) > 60 Est GFR (Non-Af Amer) > 60 Random Glucose 73 Calcium 7.9 L Phosphorus 2.5 Magnesium 1.8 Total Bilirubin 1.4 H AST 33 ALT 35 Alkaline Phosphatase 221 H D Total Protein 5.2 L Albumin 2.1 L Globulin 3.1 Albumin/Globulin Ratio 0.7 L Critical Care Progress Note - Nutrition Nutrition: Nutrition Category Date Time Status Heart Healthy Diet [DIET] Diets 06/27/17 Dinner Active Attending/Attestation - Attestation I have personally seen and examined this patient.: Yes I have fully participated in the care of the patient.: Yes I have reviewed all pertinent clinical information: Yes Notes (Text): 07/04/17 17:56 I have seen and examined the patient. Medical records, lab studies, and imaging were reviewed by me and a management plan was formulated on multidisciplinary rounds with resident Dr. Schwartz. I agree with their documented assessment and plan. 77yo F. MDS, CAD, Afib, PE, diastolic CHF, SIADH, c. diff colitis. p/w sepsis colitis vs cholecystitis. Neuro: alert and oriented x 3 Pulm: has intermittent SOB from suspected from diastolic CHF. on maintenance oral diuretics lasix 40mg po q12h. CV: Afib rate controlled with cardizem po. hypotension, running albumin drip. off of pressors x 24h. holding losartan. Hem: afib on Eliquis, CAD on ASA. Renal: urine output wnl. Endo: hyperthyroidism continue methimazole. GI: heart healthy diet. ID: sepsis on cefepime, flagyl IV, vanco po and diflucan. patient was treated also for presumptive possible recurrent c. diff colitis. DVT proph - Eliquis GI proph - pepcid maciel for strict I/O's during acute illness Code status - full code Critical Care Time 35 minutes. Multi-disciplinary rounds were performed with house staff, nursing, speech therapy, respiratory therapy, pharmacy and nutrition with integrated input from the primary team/attending and other consulting services. The documented time is cumulative and includes review of patient data/exams/labs/chart review and examination of the patient on rounds and throughout the day; time is exclusive of any procedures or teaching time.
--- NOTE | 2017-07-04 14:33 | CP.PCM.PN ---
Subjective - Date & Time of Evaluation Date of Evaluation: 07/04/17 Time of Evaluation: 12:25 - Subjective Subjective: Patient seen and examined Episode off A. fib with rapid ventricle rate last night Increasing shortness of breath on BIPAP Patient is off Levophed drip Afebrile Objective - Vital Signs/Intake and Output Vital Signs (last 24 hours): Temp Pulse Resp BP Pulse Ox 98.5 F 65 22 81/41 L 96 07/04/17 09:51 07/04/17 12:29 07/04/17 12:29 07/04/17 12:29 07/04/17 12:29 Intake and Output: 07/04/17 07/04/17 06:59 18:59 Intake Total 1075 525 Balance 1075 525 - Medications Medications: Current Medications Acetaminophen (Tylenol 325mg Tab) 650 mg PO Q4 PRN PRN Reason: blood transfusion Last Admin: 07/01/17 09:55 Dose: 650 mg Acetaminophen (Tylenol 650mg/20.3ml Solution Ud) 650 mg PO Q4 PRN PRN Reason: Temperature greater than 100.4 Last Admin: 07/04/17 08:51 Dose: 650 mg Albuterol/Ipratropium (Duoneb 3 Mg/0.5 Mg (3 Ml) Ud) 3 ml INH RQ6 [facility] Last Admin: 07/04/17 07:53 Dose: 3 ml Apixaban (Eliquis) 5 mg PO BID [facility] Last Admin: 06/24/17 11:18 Dose: 5 mg Aspirin (Aspirin Chewable) 81 mg PO DAILY [facility] Last Admin: 06/24/17 11:18 Dose: 81 mg Dicyclomine HCl (Bentyl) 10 mg PO BID [facility] Last Admin: 07/04/17 09:01 Dose: 10 mg Diltiazem HCl (Cardizem) 30 mg PO Q6H VARINDER Last Admin: 07/04/17 08:51 Dose: 30 mg Furosemide (Lasix) 20 mg IVP ONCE PRN PRN Reason: before transfusion Last Admin: 06/29/17 01:27 Dose: 20 mg Furosemide (Lasix) 40 mg PO Q12 [facility] Last Admin: 07/04/17 10:15 Dose: Not Given Guaifenesin/Dextromethorphan (Robitussin Dm) 5 ml PO Q6H PRN PRN Reason: Cough Last Admin: 07/03/17 18:43 Dose: 5 ml Heparin Sodium (Porcine) (Heparin) 5,000 units SC Q8 [facility] Last Admin: 07/04/17 06:01 Dose: 5,000 units Metronidazole (Flagyl) 500 mg in 100 mls @ 100 mls/hr IVPB Q8 [facility] Last Admin: 07/04/17 06:00 Dose: 100 mls/hr Cefepime HCl (Maxipime Iv 1 Gm Premix) 1 gm in 50 mls @ 100 mls/hr IVPB Q12H [facility] Last Admin: 07/04/17 12:01 Dose: 100 mls/hr Phenylephrine HCl 30 mg/ (Sodium Chloride) 253 mls @ 10.12 mls/hr IV .Q24H PRN ; Protocol; 20 MCG/MIN PRN Reason: TITRATE PER MD ORDER Last Titration: 07/02/17 06:00 Dose: 0 mcg/min, 0 mls/hr Norepinephrine Bitartrate 4 mg (/ Sodium Chloride) 254 mls @ 15.24 mls/hr IV .[id number] PRN; Protocol; 4 MCG/MIN PRN Reason: TITRATE PER MD ORDER Last Titration: 07/03/17 11:05 Dose: 0 mcg/min, 0 mls/hr Fluconazole (Diflucan Iv 200 Mg/100 Ml Ns) 100 mls @ 100 mls/hr IVPB DAILY [facility] Last Admin: 07/04/17 10:27 Dose: 100 mls/hr Potassium Chloride (Potassium Chloride 20 Meq/100 Ml) 20 meq in 100 mls @ 50 mls/hr IVPB ONCE ONE Stop: 07/04/17 14:59 Last Admin: 07/04/17 12:26 Dose: 50 mls/hr Losartan Potassium (Cozaar) 25 mg PO DAILY [facility] Last Admin: 06/28/17 10:02 Dose: Not Given Methimazole (Tapazole) 5 mg PO DAILY [facility] Last Admin: 07/04/17 09:01 Dose: 5 mg Methylprednisolone (Solu-Medrol) 40 mg IVP Q4 PRN PRN Reason: Other Last Admin: 06/29/17 01:26 Dose: 40 mg Metoprolol Succinate (Toprol Xl) 25 mg PO DAILY [facility] Last Admin: 06/24/17 11:19 Dose: 25 mg Multivitamins (Hexavitamin) 1 tab PO DAILY [facility] Last Admin: 07/04/17 09:05 Dose: 1 tab Vancomycin HCl (Vancocin (Oral Or Rectal Use)) 250 mg PO QID [facility] Last Admin: 07/04/17 09:07 Dose: 250 mg - Labs Labs: 07/04/17 06:30 07/04/17 06:29 PT 18.2 SECONDS (9.7-12.2) H 06/27/17 11:09 INR 1.6 06/27/17 11:09 APTT 34 SECONDS (21-34) 06/15/17 13:26 - Head Exam Head Exam: ATRAUMATIC, NORMOCEPHALIC - ENT Exam ENT Exam: Mucous Membranes Moist - Neck Exam Neck Exam: Normal Inspection - Respiratory Exam Respiratory Exam: Decreased Breath Sounds - Cardiovascular Exam Cardiovascular Exam: Irregular Rhythm - GI/Abdominal Exam GI & Abdominal Exam: Soft, Normal Bowel Sounds Assessment and Plan (1) SOB (shortness of breath) Assessment & Plan: Bilateral lung infiltrate/effusion Surgical consult for possible gallbladder disease Continue antibiotics BiPAP IV albumin Lasix as needed Status: Acute (2) Myelodysplasia (myelodysplastic syndrome) Status: Acute
--- NOTE | 2017-07-04 16:31 | CP.PCM.CON ---
History of Present Illness - History of Present Illness History of Present Illness: General surgery consult for Dr. Messi Reeves, PGY-1 Pt S & E at bedside. 77M w/PMH sig for MDS, recent PE, CAD, hx pneumonia, NSTEMI, CHF, HLD, HTN consulted for suspected cholecystitis. Pt originally admitted to ICU for SOB/ respiratory distress. CT abdomen done on 06/25 w/finding of small gallstone, focal thickening of GB wall. Pt has been intermittently febrile with liquid stool- currently being treated for c diff colitis. Pt reports LUQ abdominal pain that radiates diffusely, intermittent, moderate severity. Admits to bloating, SOB, hunger. Denies changes in bladder habits, chest pain, other complaints. T bili 1.4 from high of 2.4 (on admission- 06/15). PMH: MDS, recent PE, CAD, hx pneumonia, NSTEMI, CHF, HLD, HTN PSH: cardiac cath All: NDKA SH: Denies ETOH, tobacco or illicit drug use Review of Systems - Review of Systems All systems: reviewed and no additional remarkable complaints except - Constitutional Constitutional: Fever. absent: Chills - EENT Eyes: absent: Change in Vision Nose/Mouth/Throat: absent: Sore Throat - Cardiovascular Cardiovascular: absent: Chest Pain - Respiratory Respiratory: absent: Cough - Gastrointestinal Gastrointestinal: Abdominal Pain, Diarrhea. absent: Constipation, Hematemesis, Hematochezia, Nausea, Vomiting - Genitourinary Genitourinary: absent: Change in Urinary Stream - Integumentary Integumentary: absent: Rash - Neurological Neurological: Weakness Past Patient History - Infectious Disease Hx of Infectious Diseases: None - Past Medical History & Family History Past Medical History?: Yes - Past Social History Smoking Status: Never Smoked Home Situation {Lives}: With Family - CARDIAC Hx Congestive Heart Failure: Yes Hx Hypercholesterolemia: Yes Hx Hypertension: Yes - PULMONARY Hx Pneumonia: Yes Hx Pulmonary Embolism: Yes - NEUROLOGICAL Hx Neurological Disorder: No - HEENT Hx HEENT Problems: No - RENAL Hx Chronic Kidney Disease: No - ENDOCRINE/METABOLIC Hx Hypothyroidism: Yes - HEMATOLOGICAL/ONCOLOGICAL Hx Anemia: Yes - INTEGUMENTARY Hx Dermatological Problems: No - MUSCULOSKELETAL/RHEUMATOLOGICAL Hx Musculoskeletal Disorders: Yes Hx Falls: Yes - GASTROINTESTINAL Hx Gastritis: Yes - GENITOURINARY/GYNECOLOGICAL Hx Genitourinary Disorders: No - PSYCHIATRIC Hx Substance Use: No - SURGICAL HISTORY Hx Surgeries: Yes Hx Cardiac Catheterization: Yes (2018) - ANESTHESIA Hx Anesthesia: No Hx Anesthesia Reactions: No Hx Malignant Hyperthermia: No Meds Allergies/Adverse Reactions: Allergies Allergy/AdvReac Type Severity Reaction Status Date / Time No Known Allergies Allergy Verified 06/15/17 12:10 - Medications Medications: Current Medications Acetaminophen (Tylenol 325mg Tab) 650 mg PO Q4 PRN PRN Reason: blood transfusion Last Admin: 07/01/17 09:55 Dose: 650 mg Acetaminophen (Tylenol 650mg/20.3ml Solution Ud) 650 mg PO Q4 PRN PRN Reason: Temperature greater than 100.4 Last Admin: 07/04/17 08:51 Dose: 650 mg Albuterol/Ipratropium (Duoneb 3 Mg/0.5 Mg (3 Ml) Ud) 3 ml INH RQ6 [facility] Last Admin: 07/04/17 14:48 Dose: 3 ml Apixaban (Eliquis) 5 mg PO BID [facility] Last Admin: 06/24/17 11:18 Dose: 5 mg Aspirin (Aspirin Chewable) 81 mg PO DAILY [facility] Last Admin: 06/24/17 11:18 Dose: 81 mg Dicyclomine HCl (Bentyl) 10 mg PO BID [facility] Last Admin: 07/04/17 09:01 Dose: 10 mg Diltiazem HCl (Cardizem) 30 mg PO Q6H [facility] Last Admin: 07/04/17 15:13 Dose: Not Given Furosemide (Lasix) 20 mg IVP ONCE PRN PRN Reason: before transfusion Last Admin: 06/29/17 01:27 Dose: 20 mg Furosemide (Lasix) 40 mg PO Q12 [facility] Last Admin: 07/04/17 10:15 Dose: Not Given Guaifenesin/Dextromethorphan (Robitussin Dm) 5 ml PO Q6H PRN PRN Reason: Cough Last Admin: 07/03/17 18:43 Dose: 5 ml Metronidazole (Flagyl) 500 mg in 100 mls @ 100 mls/hr IVPB Q8 [facility] Last Admin: 07/04/17 14:00 Dose: 100 mls/hr Cefepime HCl (Maxipime Iv 1 Gm Premix) 1 gm in 50 mls @ 100 mls/hr IVPB Q12H [facility] Last Admin: 07/04/17 12:01 Dose: 100 mls/hr Phenylephrine HCl 30 mg/ (Sodium Chloride) 253 mls @ 10.12 mls/hr IV .Q24H PRN ; Protocol; 20 MCG/MIN PRN Reason: TITRATE PER MD ORDER Last Titration: 07/02/17 06:00 Dose: 0 mcg/min, 0 mls/hr Norepinephrine Bitartrate 4 mg (/ Sodium Chloride) 254 mls @ 15.24 mls/hr IV .[id number] PRN; Protocol; 4 MCG/MIN PRN Reason: TITRATE PER MD ORDER Last Titration: 07/03/17 11:05 Dose: 0 mcg/min, 0 mls/hr Fluconazole (Diflucan Iv 200 Mg/100 Ml Ns) 100 mls @ 100 mls/hr IVPB DAILY [facility] Last Admin: 07/04/17 10:27 Dose: 100 mls/hr Methimazole (Tapazole) 5 mg PO DAILY [facility] Last Admin: 07/04/17 09:01 Dose: 5 mg Methylprednisolone (Solu-Medrol) 40 mg IVP Q4 PRN PRN Reason: Other Last Admin: 06/29/17 01:26 Dose: 40 mg Multivitamins (Hexavitamin) 1 tab PO DAILY [facility] Last Admin: 07/04/17 09:05 Dose: 1 tab Vancomycin HCl (Vancocin (Oral Or Rectal Use)) 250 mg PO QID [facility] Last Admin: 07/04/17 15:53 Dose: 250 mg Physical Exam - Constitutional Appears: Non-toxic, No Acute Distress - Head Exam Head Exam: ATRAUMATIC, NORMAL INSPECTION, NORMOCEPHALIC - Eye Exam Eye Exam: EOMI, Normal appearance - ENT Exam ENT Exam: Mucous Membranes Moist, Normal Exam - Neck Exam Neck exam: Positive for: Full Rom, Normal Inspection - Respiratory Exam Respiratory Exam: NORMAL BREATHING PATTERN - Cardiovascular Exam Cardiovascular Exam: REGULAR RHYTHM, +S1, +S2 - GI/Abdominal Exam GI & Abdominal Exam: Distended (mild), Soft, Tenderness (diffuse). absent: Firm , Guarding - Neurological Exam Neurological exam: Alert, CN II-XII Intact, Oriented x3 - Psychiatric Exam Psychiatric exam: Normal Affect, Normal Mood - Skin Skin Exam: Dry, Intact, Normal Color, Warm Results - Vital Signs Recent Vital Signs: Last Vital Signs Temp 98.5 F 07/04/17 09:51 Pulse 65 07/04/17 12:29 Resp 22 07/04/17 12:29 BP 81/41 L 07/04/17 12:29 Pulse Ox 96 07/04/17 12:29 - Labs Result Diagrams: 07/04/17 06:30 07/04/17 06:29 Labs: Laboratory Results - last 24 hr 07/01/17 07/04/17 07/04/17 07:27 06:29 06:30 WBC 7.5 D RBC 2.99 L Hgb 8.8 L Hct 25.4 L MCV 85.1 MCH 29.4 MCHC 34.5 RDW 16.1 H Plt Count 133 MPV 10.5 Neut % (Auto) 85.8 H Lymph % (Auto) 12.4 L Clark % (Auto) 1.0 Eos % (Auto) 0.8 Baso % (Auto) 0.0 Neut # (Auto) 6.4 Lymph # (Auto) 0.9 L Clark # (Auto) 0.1 Eos # (Auto) 0.1 Baso # (Auto) 0.0 Neutrophils % (Manual) 49 L Band Neutrophils % 35 H* Lymphocytes % (Manual) 9 L Monocytes % (Manual) 6 Eosinophils % (Manual) 1 Platelet Estimate Normal Polychromasia Slight Hypochromasia (manual) Slight Anisocytosis (manual) Slight Target Cells Slight Tear Drop Cells Slight Ovalocytes Slight Schistocytes Slight Sodium 129 L Potassium 3.2 L Chloride 97 L Carbon Dioxide 26 Anion Gap 9 L BUN 13 Creatinine 0.5 L Est GFR ( Amer) > 60 Est GFR (Non-Af Amer) > 60 Random Glucose 73 Calcium 7.9 L Phosphorus 2.5 Magnesium 1.8 Total Bilirubin 1.4 H AST 33 ALT 35 Alkaline Phosphatase 221 H D Total Protein 5.2 L Albumin 2.1 L Globulin 3.1 Albumin/Globulin Ratio 0.7 L Thyroid Stim Immunoglob <89 Assessment & Plan - Assessment and Plan (Free Text) Assessment: 77F w/abdominal pain Plan: Cont IV Abx FU RUQ U/S Further recs as per attending gemma MUSE attending Lala, PGY-1 - Date & Time Date: 07/04/17 Time: 16:29
--- NOTE | 2017-07-04 17:39 | CP.PCM.PN ---
Subjective - Date & Time of Evaluation Date of Evaluation: 07/04/17 Time of Evaluation: 08:00 - Subjective Subjective: seen in ICU'awake alert less SOB IV rx in progress Objective - Vital Signs/Intake and Output Vital Signs (last 24 hours): Temp Pulse Resp BP Pulse Ox 98.5 F 65 22 81/41 L 96 07/04/17 09:51 07/04/17 12:29 07/04/17 12:29 07/04/17 12:29 07/04/17 12:29 Intake and Output: 07/04/17 07/04/17 06:59 18:59 Intake Total 1075 525 Balance 1075 525 - Medications Medications: Current Medications Acetaminophen (Tylenol 325mg Tab) 650 mg PO Q4 PRN PRN Reason: blood transfusion Last Admin: 07/01/17 09:55 Dose: 650 mg Acetaminophen (Tylenol 650mg/20.3ml Solution Ud) 650 mg PO Q4 PRN PRN Reason: Temperature greater than 100.4 Last Admin: 07/04/17 08:51 Dose: 650 mg Albuterol/Ipratropium (Duoneb 3 Mg/0.5 Mg (3 Ml) Ud) 3 ml INH RQ6 [facility] Last Admin: 07/04/17 14:48 Dose: 3 ml Apixaban (Eliquis) 5 mg PO BID [facility] Last Admin: 06/24/17 11:18 Dose: 5 mg Aspirin (Aspirin Chewable) 81 mg PO DAILY [facility] Last Admin: 06/24/17 11:18 Dose: 81 mg Dicyclomine HCl (Bentyl) 10 mg PO BID [facility] Last Admin: 07/04/17 09:01 Dose: 10 mg Diltiazem HCl (Cardizem) 30 mg PO Q6H [facility] Last Admin: 07/04/17 15:13 Dose: Not Given Furosemide (Lasix) 20 mg IVP ONCE PRN PRN Reason: before transfusion Last Admin: 06/29/17 01:27 Dose: 20 mg Furosemide (Lasix) 40 mg PO Q12 [facility] Last Admin: 07/04/17 10:15 Dose: Not Given Guaifenesin/Dextromethorphan (Robitussin Dm) 5 ml PO Q6H PRN PRN Reason: Cough Last Admin: 07/03/17 18:43 Dose: 5 ml Metronidazole (Flagyl) 500 mg in 100 mls @ 100 mls/hr IVPB Q8 [facility] Last Admin: 07/04/17 14:00 Dose: 100 mls/hr Cefepime HCl (Maxipime Iv 1 Gm Premix) 1 gm in 50 mls @ 100 mls/hr IVPB Q12H [facility] Last Admin: 07/04/17 12:01 Dose: 100 mls/hr Phenylephrine HCl 30 mg/ (Sodium Chloride) 253 mls @ 10.12 mls/hr IV .Q24H PRN ; Protocol; 20 MCG/MIN PRN Reason: TITRATE PER MD ORDER Last Titration: 07/02/17 06:00 Dose: 0 mcg/min, 0 mls/hr Norepinephrine Bitartrate 4 mg (/ Sodium Chloride) 254 mls @ 15.24 mls/hr IV .[id number] PRN; Protocol; 4 MCG/MIN PRN Reason: TITRATE PER MD ORDER Last Titration: 07/03/17 11:05 Dose: 0 mcg/min, 0 mls/hr Fluconazole (Diflucan Iv 200 Mg/100 Ml Ns) 100 mls @ 100 mls/hr IVPB DAILY [facility] Last Admin: 07/04/17 10:27 Dose: 100 mls/hr Methimazole (Tapazole) 5 mg PO DAILY [facility] Last Admin: 07/04/17 09:01 Dose: 5 mg Methylprednisolone (Solu-Medrol) 40 mg IVP Q4 PRN PRN Reason: Other Last Admin: 06/29/17 01:26 Dose: 40 mg Multivitamins (Hexavitamin) 1 tab PO DAILY [facility] Last Admin: 07/04/17 09:05 Dose: 1 tab Vancomycin HCl (Vancocin (Oral Or Rectal Use)) 250 mg PO QID [facility] Last Admin: 07/04/17 15:53 Dose: 250 mg - Labs Labs: 07/04/17 06:30 07/04/17 06:29 PT 18.2 SECONDS (9.7-12.2) H 06/27/17 11:09 INR 1.6 06/27/17 11:09 APTT 34 SECONDS (21-34) 06/15/17 13:26 - Constitutional Appears: Non-toxic, Chronically Ill - Head Exam Head Exam: NORMOCEPHALIC - Eye Exam Eye Exam: absent: Scleral icterus - ENT Exam ENT Exam: Mucous Membranes Dry - Neck Exam Neck Exam: absent: Lymphadenopathy - Respiratory Exam Respiratory Exam: Decreased Breath Sounds, Rhonchi - Cardiovascular Exam Cardiovascular Exam: REGULAR RHYTHM - GI/Abdominal Exam GI & Abdominal Exam: Distended, Soft Assessment and Plan (1) CHF (congestive heart failure) Status: Acute (2) Rapid atrial fibrillation Status: Acute (3) CAD (coronary artery disease) Status: Acute (4) Cough Status: Acute (5) Dehydration Status: Acute (6) Hyponatremia Status: Acute (7) Lower respiratory infection Status: Acute (8) Myelodysplasia (myelodysplastic syndrome) Status: Acute
--- NOTE | 2017-07-04 17:54 | US ---
HISTORY: suspect cholecystitis COMPARISON: Comparison is made with the previous CT dated 06/23/2017 TECHNIQUE: Sonographic evaluation of the abdomen. FINDINGS: LIVER: Measures 19.5 cm. Heterogeneous increased echogenicity of the liver parenchyma. No mass. No intrahepatic bile duct dilatation. There is 1.1 x 1 centimeters cyst at the inferior border of the right liver lobe noted. GALLBLADDER: Diffuse gallbladder wall thickening is noted. COMMON BILE DUCT: Measures 6.7 mm. No stones. No dilatation. PANCREAS: Unremarkable as visualized. No mass. No ductal dilatation. RIGHT KIDNEY: Measures 9.4 x 3.6 x 4.2cm. Normal echogenicity. No calculus, mass, or hydronephrosis. LEFT KIDNEY: Measures 11.6 x 4.7 x 4.2cm. Normal echogenicity. No calculus, mass, or hydronephrosis. SPLEEN: Mild splenomegaly noted measures 13.8 centimeter. AORTA: No aneurysmal dilatation. IVC: Unremarkable. OTHER FINDINGS: None. IMPRESSION: Contracted gallbladder demonstrate diffuse wall thickening. Mild splenomegaly and mild hepatomegaly. Diffuse increased echogenicity of the liver likely represent hepatic steatosis or liver parenchymal disease.
--- NOTE | 2017-07-04 18:36 | CP.PCM.PN ---
Subjective - Date & Time of Evaluation Date of Evaluation: 07/04/17 Time of Evaluation: 18:35 - Subjective Subjective: pt is seen and examined, follow up consult is dictated #[id number] Objective - Vital Signs/Intake and Output Vital Signs (last 24 hours): Temp Pulse Resp BP Pulse Ox 98.5 F 65 22 81/41 L 96 07/04/17 09:51 07/04/17 12:29 07/04/17 12:29 07/04/17 12:29 07/04/17 12:29 Intake and Output: 07/04/17 07/04/17 06:59 18:59 Intake Total 1075 525 Balance 1075 525 - Medications Medications: Current Medications Acetaminophen (Tylenol 325mg Tab) 650 mg PO Q4 PRN PRN Reason: blood transfusion Last Admin: 07/01/17 09:55 Dose: 650 mg Acetaminophen (Tylenol 650mg/20.3ml Solution Ud) 650 mg PO Q4 PRN PRN Reason: Temperature greater than 100.4 Last Admin: 07/04/17 08:51 Dose: 650 mg Albuterol/Ipratropium (Duoneb 3 Mg/0.5 Mg (3 Ml) Ud) 3 ml INH RQ6 [facility] Last Admin: 07/04/17 14:48 Dose: 3 ml Apixaban (Eliquis) 5 mg PO BID [facility] Last Admin: 06/24/17 11:18 Dose: 5 mg Aspirin (Aspirin Chewable) 81 mg PO DAILY [facility] Last Admin: 06/24/17 11:18 Dose: 81 mg Dicyclomine HCl (Bentyl) 10 mg PO BID [facility] Last Admin: 07/04/17 17:46 Dose: 10 mg Diltiazem HCl (Cardizem) 30 mg PO Q6H [facility] Last Admin: 07/04/17 15:13 Dose: Not Given Furosemide (Lasix) 20 mg IVP ONCE PRN PRN Reason: before transfusion Last Admin: 06/29/17 01:27 Dose: 20 mg Furosemide (Lasix) 40 mg PO Q12 [facility] Last Admin: 07/04/17 10:15 Dose: Not Given Guaifenesin/Dextromethorphan (Robitussin Dm) 5 ml PO Q6H PRN PRN Reason: Cough Last Admin: 07/03/17 18:43 Dose: 5 ml Metronidazole (Flagyl) 500 mg in 100 mls @ 100 mls/hr IVPB Q8 [facility] Last Admin: 07/04/17 14:00 Dose: 100 mls/hr Cefepime HCl (Maxipime Iv 1 Gm Premix) 1 gm in 50 mls @ 100 mls/hr IVPB Q12H [facility] Last Admin: 07/04/17 12:01 Dose: 100 mls/hr Phenylephrine HCl 30 mg/ (Sodium Chloride) 253 mls @ 10.12 mls/hr IV .Q24H PRN ; Protocol; 20 MCG/MIN PRN Reason: TITRATE PER MD ORDER Last Titration: 07/02/17 06:00 Dose: 0 mcg/min, 0 mls/hr Norepinephrine Bitartrate 4 mg (/ Sodium Chloride) 254 mls @ 15.24 mls/hr IV .[id number] PRN; Protocol; 4 MCG/MIN PRN Reason: TITRATE PER MD ORDER Last Titration: 07/03/17 11:05 Dose: 0 mcg/min, 0 mls/hr Fluconazole (Diflucan Iv 200 Mg/100 Ml Ns) 100 mls @ 100 mls/hr IVPB DAILY [facility] Last Admin: 07/04/17 10:27 Dose: 100 mls/hr Methimazole (Tapazole) 5 mg PO DAILY [facility] Last Admin: 07/04/17 09:01 Dose: 5 mg Methylprednisolone (Solu-Medrol) 40 mg IVP Q4 PRN PRN Reason: Other Last Admin: 06/29/17 01:26 Dose: 40 mg Multivitamins (Hexavitamin) 1 tab PO DAILY [facility] Last Admin: 07/04/17 09:05 Dose: 1 tab Vancomycin HCl (Vancocin (Oral Or Rectal Use)) 250 mg PO QID [facility] Last Admin: 07/04/17 17:39 Dose: 250 mg - Labs Labs: 07/04/17 06:30 07/04/17 06:29 PT 18.2 SECONDS (9.7-12.2) H 06/27/17 11:09 INR 1.6 06/27/17 11:09 APTT 34 SECONDS (21-34) 06/15/17 13:26
[2017-07-05] MEDS: Cefepime IV 1 gm in Dextrose 1 GM/50 ML BAG IVPB SCH ×2 (00:36→12:00)
[2017-07-05] MEDS: Acetaminophen 650mg/20.3ml solution UD PO PRN (00:36)
[2017-07-05] MEDS: guaiFENesin DM 100 mg-10 mg/5 ml UD PO PRN ×3 (00:44→20:52)
--- NOTE | 2017-07-05 02:09 | PN ---
DATE: 07/04/2017. ENDOCRINOLOGY FOLLOWUP NOTE LOCATION: ICU room 8. SUBJECTIVE: This is a 77-year-old female with recent admission for exacerbation of congestive heart failure on the background of significant cardiac vasculopathy with supervening rapid atrial fibrillation and is now being followed closely for hemodynamic monitoring and management here in the ICU as noted. She also remains clinically and biochemically euthyroid at this time. LABORATORY DATA: The latest chemistry showed BUN of 13, sodium 129, potassium 3.2, chloride 97, CO2 26, glucose 73, and creatinine 0.5. Her latest thyroid studies showed a T4 of 5.0 with a TSH of 3.52 and a free T4 of 0.91. PLAN: So at this time, we will continue the low dose Tapazole given as 5 mg once daily as ordered. We will obtain serial chemistries and supplement accordingly as needed. We will follow. Marely Raymundo MD
[2017-07-05] MEDS: Albuterol-Ipratrop 3 mg / 0.5 (3 ml) UD INH SCH ×4 (02:16→19:24)
[2017-07-05] MEDS ORDERED: Albumin Human 25% (12.5 gm/50 ml) IV ONE ×2 (04:36→05:07)
[2017-07-05] MEDS: metroNIDAZOLE IV 500 mg/100 ml 500 MG/100 ML BAG IVPB SCH ×3 (05:08→21:14)
[2017-07-05] MEDS ORDERED: Albumin Human 5% (12.5 gm/250 ml) IV ONE (05:35)
[2017-07-05 07:24] LABS: ALB/GLOB RATIO 0.8 (1.0-2.1); ALBUMIN 2.2 g/dL (3.5-5.0); ALT/SGPT 32 U/L (9-52); AST/SGOT 15 U/L (14-36); BLOOD UREA NITROGEN 14 mg/dL (7-17); CALCIUM 7.6 mg/dl (8.6-10.4); GFR AFRICAN-AMERICAN > 60; GFR NON-AFRICAN AMERICAN > 60; MAGNESIUM 1.9 mg/dL (1.6-2.3)
[2017-07-05 07:29] LABS: MEAN CELL VOLUME 84.9 fL (81.0-99.0); MEAN CORPUSCULAR HEMOGLOBIN 29.1 pg (27.0-31.0); MEAN CORPUSCULAR HGB CONC 34.3 g/dL (33.0-37.0); MEAN PLATELET VOLUME 9.1 fL (7.2-11.7); RBC 2.41 Mil/uL (3.80-5.20); RED CELL DISTRIBUTION WIDTH 16.2 % (11.5-14.5); WHITE BLOOD COUNT 4.9 K/uL (4.8-10.8)
[2017-07-05 07:32] LABS: PLATELET COUNT 80 K/uL (130-400)
--- NOTE | 2017-07-05 08:02 | CP.PCM.PN ---
Subjective - Date & Time of Evaluation Date of Evaluation: 07/05/18 Time of Evaluation: 07:45 - Subjective Subjective: Pt no complain but weak. (+) hungry and want to go to [place] (+) hypotensive episode. No CP, less SOB, minimal cough but no mucus. Semi-solid stool (3X yesterday) Objective - Vital Signs/Intake and Output Vital Signs (last 24 hours): Temp Pulse Resp BP Pulse Ox 98.3 F 64 21 80/43 L 100 07/05/17 04:00 07/05/17 07:55 07/05/17 04:18 07/05/17 04:18 07/05/17 04:00 Intake and Output: 07/05/17 07/05/17 06:59 18:59 Intake Total 600 Output Total 350 Balance 250 - Medications Medications: Current Medications Acetaminophen (Tylenol 325mg Tab) 650 mg PO Q4 PRN PRN Reason: blood transfusion Last Admin: 07/01/17 09:55 Dose: 650 mg Acetaminophen (Tylenol 650mg/20.3ml Solution Ud) 650 mg PO Q4 PRN PRN Reason: Temperature greater than 100.4 Last Admin: 07/05/17 00:36 Dose: 650 mg Albuterol/Ipratropium (Duoneb 3 Mg/0.5 Mg (3 Ml) Ud) 3 ml INH RQ6 [facility] Last Admin: 07/05/17 07:54 Dose: 3 ml Apixaban (Eliquis) 5 mg PO BID [facility] Last Admin: 06/24/17 11:18 Dose: 5 mg Aspirin (Aspirin Chewable) 81 mg PO DAILY [facility] Last Admin: 06/24/17 11:18 Dose: 81 mg Dicyclomine HCl (Bentyl) 10 mg PO BID [facility] Last Admin: 07/04/17 17:46 Dose: 10 mg Diltiazem HCl (Cardizem) 30 mg PO Q6H [facility] Last Admin: 07/05/17 01:54 Dose: Not Given Furosemide (Lasix) 20 mg IVP ONCE PRN PRN Reason: before transfusion Last Admin: 06/29/17 01:27 Dose: 20 mg Furosemide (Lasix) 40 mg PO Q12 [facility] Last Admin: 07/04/17 21:54 Dose: 40 mg Guaifenesin/Dextromethorphan (Robitussin Dm) 5 ml PO Q6H PRN PRN Reason: Cough Last Admin: 07/05/17 00:44 Dose: 5 ml Metronidazole (Flagyl) 500 mg in 100 mls @ 100 mls/hr IVPB Q8 [facility] Last Admin: 07/05/17 05:08 Dose: 100 mls/hr Cefepime HCl (Maxipime Iv 1 Gm Premix) 1 gm in 50 mls @ 100 mls/hr IVPB Q12H [facility] Last Admin: 07/05/17 00:36 Dose: 100 mls/hr Phenylephrine HCl 30 mg/ (Sodium Chloride) 253 mls @ 10.12 mls/hr IV .Q24H PRN ; Protocol; 20 MCG/MIN PRN Reason: TITRATE PER MD ORDER Last Titration: 07/02/17 06:00 Dose: 0 mcg/min, 0 mls/hr Norepinephrine Bitartrate 4 mg (/ Sodium Chloride) 254 mls @ 15.24 mls/hr IV .[id number] PRN; Protocol; 4 MCG/MIN PRN Reason: TITRATE PER MD ORDER Last Titration: 07/03/17 11:05 Dose: 0 mcg/min, 0 mls/hr Fluconazole (Diflucan Iv 200 Mg/100 Ml Ns) 100 mls @ 100 mls/hr IVPB DAILY [facility] Last Admin: 07/04/17 10:27 Dose: 100 mls/hr Methimazole (Tapazole) 5 mg PO DAILY [facility] Last Admin: 07/04/17 09:01 Dose: 5 mg Methylprednisolone (Solu-Medrol) 40 mg IVP Q4 PRN PRN Reason: Other Last Admin: 06/29/17 01:26 Dose: 40 mg Multivitamins (Hexavitamin) 1 tab PO DAILY [facility] Last Admin: 07/04/17 09:05 Dose: 1 tab Vancomycin HCl (Vancocin (Oral Or Rectal Use)) 250 mg PO QID [facility] Last Admin: 07/04/17 21:55 Dose: 250 mg - Labs Labs: 07/05/17 06:40 07/05/17 06:40 PT 18.2 SECONDS (9.7-12.2) H 06/27/17 11:09 INR 1.6 06/27/17 11:09 APTT 34 SECONDS (21-34) 06/15/17 13:26 - Constitutional Appears: No Acute Distress - Eye Exam Eye Exam: Normal appearance - ENT Exam ENT Exam: Mucous Membranes Moist - Neck Exam Neck Exam: Full ROM. absent: Lymphadenopathy, Normal Inspection - Respiratory Exam Respiratory Exam: Clear to Ausculation Bilateral. absent: Rales, Rhonchi, Wheezes - GI/Abdominal Exam GI & Abdominal Exam: Soft. absent: Tenderness, Mass - Extremities Exam Extremities Exam: Full ROM, Normal Capillary Refill. absent: Calf Tenderness, Joint Swelling, Pedal Edema Assessment and Plan - Assessment and Plan (Free Text) Plan: Sepsis; MDS CAD, Recent PE & C diff infection Cont supportive care
--- NOTE | 2017-07-05 08:17 | RAD ---
Chest x-ray single frontal view History: Congestive heart failure. Comparison: 07/04/2017 Findings: Moderate venous congestion with bibasilar airspace opacities and small bilateral pleural effusions. Biapical pleural thickening with upper lobe granulomatous changes. Right hilar prominence. Superimposed patchy opacification within the right lung and left lung base. Small nodular densities at the lung bases. Calcification at the aortic knob. Mild cardiomegaly. Degenerative changes in the spine and shoulders. Impression: Moderate venous congestion with bibasilar airspace opacities and small bilateral pleural effusions. Biapical pleural thickening with upper lobe granulomatous changes. Right hilar prominence. Superimposed patchy opacification within the right lung and left lung base. Small nodular densities at the lung bases. Calcification at the aortic knob. Mild cardiomegaly.
[2017-07-05] MEDS: Fluconazole IV 200mg/100 ml NS 100 ML IVPB SCH (10:00)
[2017-07-05] MEDS: Multiple Vitamins Tab PO SCH (10:00)
[2017-07-05] MEDS: methIMAzole 5 MG TAB PO SCH (10:00)
[2017-07-05] MEDS: Vancomycin 125 MG/5 ML SOLN (ORAL/RECTAL) PO SCH ×4 (10:00→21:15)
[2017-07-05 10:10] LABS: EOS # 0.1 K/uL (0.0-0.7); LYMPH # 0.7 K/uL (1.0-4.3); MONO # 0.1 K/uL (0.0-0.8)
[2017-07-05 10:16] LABS: BANDS 29 % (0-2); EOSINOPHIL 1 % (0-4); LYMPHOCYTE 15 % (20-40); MONOCYTE 1 % (0-10); NEUTROPHIL 54 % (50-75); PLATELET ESTIMATE DECREASED (NORMAL); TOTAL CELLS COUNTED 100
[2017-07-05 10:17] LABS: HYPOCHROMIC SLIGHT; POLYCHROMIC SLIGHT
[2017-07-05 10:18] LABS: OVALOCYTES SLIGHT; POIKILOCYTOSIS SLIGHT
[2017-07-05 10:19] LABS: GIANT PLATELETS PRESENT; LARGE PLATELETS PRESENT; SCHISTOCYTES SLIGHT; TARGET CELLS SLIGHT
[2017-07-05 10:20] LABS: ANISOCYTOSIS MARKED
--- NOTE | 2017-07-05 12:10 | CP.PCM.PN ---
Subjective - Date & Time of Evaluation Date of Evaluation: 07/05/17 Time of Evaluation: 07:30 - Subjective Subjective: General Surgery- Dr. Crooks Pt S&E at bedside this AM. no acute events overnight. Tolerating current diet. Denies ABD pain. No new complaints. Denies: fevers, chills, nausea, vomiting. Objective - Vital Signs/Intake and Output Vital Signs (last 24 hours): Temp Pulse Resp BP Pulse Ox 97.8 F 64 22 115/70 96 07/05/17 08:00 07/05/17 11:00 07/05/17 11:00 07/05/17 10:00 07/05/17 10:00 Intake and Output: 07/05/17 07/05/17 06:59 18:59 Intake Total 1000 460 Output Total 350 300 Balance 650 160 - Medications Medications: Current Medications Acetaminophen (Tylenol 325mg Tab) 650 mg PO Q4 PRN PRN Reason: blood transfusion Last Admin: 07/01/17 09:55 Dose: 650 mg Acetaminophen (Tylenol 650mg/20.3ml Solution Ud) 650 mg PO Q4 PRN PRN Reason: Temperature greater than 100.4 Last Admin: 07/05/17 00:36 Dose: 650 mg Albuterol/Ipratropium (Duoneb 3 Mg/0.5 Mg (3 Ml) Ud) 3 ml INH RQ6 [facility] Last Admin: 07/05/17 07:54 Dose: 3 ml Apixaban (Eliquis) 5 mg PO BID [facility] Last Admin: 06/24/17 11:18 Dose: 5 mg Aspirin (Aspirin Chewable) 81 mg PO DAILY [facility] Last Admin: 06/24/17 11:18 Dose: 81 mg Dicyclomine HCl (Bentyl) 10 mg PO BID [facility] Last Admin: 07/05/17 10:00 Dose: 10 mg Diltiazem HCl (Cardizem) 30 mg PO Q6H [facility] Last Admin: 07/05/17 08:35 Dose: 30 mg Furosemide (Lasix) 20 mg IVP ONCE PRN PRN Reason: before transfusion Last Admin: 06/29/17 01:27 Dose: 20 mg Furosemide (Lasix) 40 mg PO Q12 [facility] Last Admin: 07/05/17 10:00 Dose: 40 mg Guaifenesin/Dextromethorphan (Robitussin Dm) 5 ml PO Q6H PRN PRN Reason: Cough Last Admin: 07/05/17 10:59 Dose: 5 ml Metronidazole (Flagyl) 500 mg in 100 mls @ 100 mls/hr IVPB Q8 [facility] Last Admin: 07/05/17 05:08 Dose: 100 mls/hr Cefepime HCl (Maxipime Iv 1 Gm Premix) 1 gm in 50 mls @ 100 mls/hr IVPB Q12H [facility] Last Admin: 07/05/17 00:36 Dose: 100 mls/hr Phenylephrine HCl 30 mg/ (Sodium Chloride) 253 mls @ 10.12 mls/hr IV .Q24H PRN ; Protocol; 20 MCG/MIN PRN Reason: TITRATE PER MD ORDER Last Titration: 07/02/17 06:00 Dose: 0 mcg/min, 0 mls/hr Norepinephrine Bitartrate 4 mg (/ Sodium Chloride) 254 mls @ 15.24 mls/hr IV .[id number] PRN; Protocol; 4 MCG/MIN PRN Reason: TITRATE PER MD ORDER Last Titration: 07/03/17 11:05 Dose: 0 mcg/min, 0 mls/hr Fluconazole (Diflucan Iv 200 Mg/100 Ml Ns) 100 mls @ 100 mls/hr IVPB DAILY [facility] Last Admin: 07/05/17 10:00 Dose: 100 mls/hr Methimazole (Tapazole) 5 mg PO DAILY [facility] Last Admin: 07/05/17 10:00 Dose: 5 mg Methylprednisolone (Solu-Medrol) 40 mg IVP Q4 PRN PRN Reason: Other Last Admin: 06/29/17 01:26 Dose: 40 mg Multivitamins (Hexavitamin) 1 tab PO DAILY [facility] Last Admin: 07/05/17 10:00 Dose: 1 tab Vancomycin HCl (Vancocin (Oral Or Rectal Use)) 250 mg PO QID [facility] Last Admin: 07/05/17 10:00 Dose: 250 mg - Labs Labs: 07/05/17 06:40 07/05/17 06:40 PT 18.2 SECONDS (9.7-12.2) H 06/27/17 11:09 INR 1.6 06/27/17 11:09 APTT 34 SECONDS (21-34) 06/15/17 13:26 - Constitutional Appears: Non-toxic, No Acute Distress - Head Exam Head Exam: ATRAUMATIC - ENT Exam ENT Exam: Mucous Membranes Moist - Respiratory Exam Respiratory Exam: NORMAL BREATHING PATTERN. absent: Accessory Muscle Use, Respiratory Distress - Cardiovascular Exam Cardiovascular Exam: +S1, +S2. absent: Bradycardia, Tachycardia - GI/Abdominal Exam GI & Abdominal Exam: Soft. absent: Distended, Firm, Guarding, Rigid, Tenderness - Neurological Exam Neurological Exam: Awake - Skin Skin Exam: Intact, Warm Assessment and Plan - Assessment and Plan (Free Text) Assessment: 77F hx MDS, CAD, AFIB. PE, c.diff colitis, T.Bili elevating; s/p sepsis colitis vs cholecystitis US: GBW thickening, no stones, or pericholecystic fluid Plan: - patient is a poor surgical candidate at this time - recommend IR for angeline tube placement - no acute surgical intervention at this time - medical management per ICU and Primary team - discussed w/ Dr. Crooks surgical attending PGY1
--- NOTE | 2017-07-05 13:19 | PN ---
DATE: ENDO FOLLOWUP NOTE LOCATION: ICU room 8. SUBJECTIVE: This is 77-year-old female with recent admission for congestive heart failure and supervening rapid atrial fibrillation and is now improving clinically and hemodynamically as noted thereof, here in the ICU. She remains clinically and biochemically euthyroid at this time. LABORATORY DATA: The latest chemistry showed BUN of 14, sodium 131, potassium 3.4, chloride 100, CO2 of 25, glucose 112, and creatinine 0.5. Her latest thyroid studies showed a T4 of 5.0 with a TSH of 3.52 as noted. PLAN: So this time, we will continue the very low dose methimazole to be given as 5 mg once daily as ordered. We will titrate incremental's as indicated to optimize metabolic control. We will obtain serial chemistries and supplement accordingly as needed. We will follow with you. Marely Raymundo MD
--- NOTE | 2017-07-05 14:32 | CP.PCM.PN ---
Subjective - Date & Time of Evaluation Date of Evaluation: 07/05/17 Time of Evaluation: 12:00 - Subjective Subjective: The patient seen and examined Seen by surgery and had ultrasound done Off pressors A. fib with controlled rate on anticoagulation Denies cough, denies fever chills Objective - Vital Signs/Intake and Output Vital Signs (last 24 hours): Temp Pulse Resp BP Pulse Ox 97.8 F 64 22 115/70 96 07/05/17 08:00 07/05/17 11:00 07/05/17 11:00 07/05/17 10:00 07/05/17 10:00 Intake and Output: 07/05/17 07/05/17 06:59 18:59 Intake Total 1000 460 Output Total 350 300 Balance 650 160 - Medications Medications: Current Medications Acetaminophen (Tylenol 325mg Tab) 650 mg PO Q4 PRN PRN Reason: blood transfusion Last Admin: 07/01/17 09:55 Dose: 650 mg Acetaminophen (Tylenol 650mg/20.3ml Solution Ud) 650 mg PO Q4 PRN PRN Reason: Temperature greater than 100.4 Last Admin: 07/05/17 00:36 Dose: 650 mg Albuterol/Ipratropium (Duoneb 3 Mg/0.5 Mg (3 Ml) Ud) 3 ml INH RQ6 [facility] Last Admin: 07/05/17 13:31 Dose: 3 ml Apixaban (Eliquis) 5 mg PO BID [facility] Last Admin: 06/24/17 11:18 Dose: 5 mg Aspirin (Aspirin Chewable) 81 mg PO DAILY [facility] Last Admin: 06/24/17 11:18 Dose: 81 mg Dicyclomine HCl (Bentyl) 10 mg PO BID [facility] Last Admin: 07/05/17 10:00 Dose: 10 mg Diltiazem HCl (Cardizem) 30 mg PO Q6H [facility] Last Admin: 07/05/17 08:35 Dose: 30 mg Furosemide (Lasix) 20 mg IVP ONCE PRN PRN Reason: before transfusion Last Admin: 06/29/17 01:27 Dose: 20 mg Furosemide (Lasix) 40 mg PO Q12 [facility] Last Admin: 07/05/17 10:00 Dose: 40 mg Guaifenesin/Dextromethorphan (Robitussin Dm) 5 ml PO Q6H PRN PRN Reason: Cough Last Admin: 07/05/17 10:59 Dose: 5 ml Metronidazole (Flagyl) 500 mg in 100 mls @ 100 mls/hr IVPB Q8 [facility] Last Admin: 07/05/17 05:08 Dose: 100 mls/hr Cefepime HCl (Maxipime Iv 1 Gm Premix) 1 gm in 50 mls @ 100 mls/hr IVPB Q12H [facility] Last Admin: 07/05/17 00:36 Dose: 100 mls/hr Phenylephrine HCl 30 mg/ (Sodium Chloride) 253 mls @ 10.12 mls/hr IV .Q24H PRN ; Protocol; 20 MCG/MIN PRN Reason: TITRATE PER MD ORDER Last Titration: 07/02/17 06:00 Dose: 0 mcg/min, 0 mls/hr Norepinephrine Bitartrate 4 mg (/ Sodium Chloride) 254 mls @ 15.24 mls/hr IV .[id number] PRN; Protocol; 4 MCG/MIN PRN Reason: TITRATE PER MD ORDER Last Titration: 07/03/17 11:05 Dose: 0 mcg/min, 0 mls/hr Fluconazole (Diflucan Iv 200 Mg/100 Ml Ns) 100 mls @ 100 mls/hr IVPB DAILY [facility] Last Admin: 07/05/17 10:00 Dose: 100 mls/hr Methimazole (Tapazole) 5 mg PO DAILY [facility] Last Admin: 07/05/17 10:00 Dose: 5 mg Methylprednisolone (Solu-Medrol) 40 mg IVP Q4 PRN PRN Reason: Other Last Admin: 06/29/17 01:26 Dose: 40 mg Multivitamins (Hexavitamin) 1 tab PO DAILY [facility] Last Admin: 07/05/17 10:00 Dose: 1 tab Vancomycin HCl (Vancocin (Oral Or Rectal Use)) 250 mg PO QID [facility] Last Admin: 07/05/17 10:00 Dose: 250 mg - Labs Labs: 07/05/17 06:40 07/05/17 06:40 PT 18.2 SECONDS (9.7-12.2) H 06/27/17 11:09 INR 1.6 06/27/17 11:09 APTT 34 SECONDS (21-34) 06/15/17 13:26 - Head Exam Head Exam: ATRAUMATIC, NORMOCEPHALIC - Eye Exam Eye Exam: Normal appearance - ENT Exam ENT Exam: Mucous Membranes Moist - Respiratory Exam Respiratory Exam: Rales Assessment and Plan (1) SOB (shortness of breath) Assessment & Plan: BiPAP as needed Transfuse packed RBCs Consider to hold eliquis Patient has risk for surgery and IR consult obtained Status: Acute (2) Myelodysplasia (myelodysplastic syndrome) Status: Acute
[2017-07-05] MEDS: MethylPREDNISolone 40 mg Vial IVP PRN (14:35)
--- NOTE | 2017-07-05 14:35 | CP.CCUPN ---
CCU Subjective - Physician Review Events Since Last Encounter (Free Text): 07/05/17 14:32 patient appears weak, and still SOB. CCU Objective - Vital Signs / Intake & Output Vital Signs (Last 4 hours): Vital Signs Pulse Resp 07/05/17 11:00 64 22 Intake and Output (Last 8hrs): Intake & Output 07/04/17 07/05/17 07/05/17 22:59 06:59 14:59 Intake Total 650 700 460 Output Total 350 300 Balance 650 350 160 Weight 145 lb 15.136 oz Intake: Intake, IV Amount 250 500 100 Right Distal Port 150 100 Subclavian Right Medial Port 100 400 100 Oral 400 200 360 Output: Urine 350 300 Urine, Voided 350 300 Other: # Voids Urine, Voided 0 0 0 # Bowel Movements 0 1 0 - Physical Exam Head: Positive for: Atraumatic, Normocephalic Pupils: Positive for: PERRL Extroacular Muscles: Positive for: EOMI Conjunctiva: Positive for: Normal Mouth: Positive for: Moist Mucous Membranes Respiratory/Chest: Positive for: Good Air Exchange, Accessory Muscle Use, Rales , Rhonchi Cardiovascular: Positive for: Normal S1, S2 Abdomen: Positive for: Normal Bowel Sounds Neurological: Positive for: GCS=15, CN II-XII Intact Psychiatric: Positive for: Alert, Oriented x 3 - Medications Active Medications: Active Medications Generic Name Dose Route Start Last Admin Trade Name Freq PRN Reason Stop Dose Admin Acetaminophen 650 mg 06/28/17 13:35 07/01/17 09:55 Tylenol 325mg Tab PO 650 mg Q4 PRN Administration blood transfusion Acetaminophen 650 mg 07/04/17 08:32 07/05/17 00:36 Tylenol 650mg/20.3ml Solution Ud PO 650 mg Q4 PRN Administration Temperature greater than 100.4 Albuterol/Ipratropium 3 ml 06/30/17 08:00 07/05/17 13:31 Duoneb 3 Mg/0.5 Mg (3 Ml) Ud INH 3 ml RQ6 [facility] Administration Apixaban 5 mg 06/16/17 10:00 06/24/17 11:18 Eliquis PO 5 mg BID [facility] Administration Aspirin 81 mg 06/16/17 10:00 06/24/17 11:18 Aspirin Chewable PO 81 mg DAILY [facility] Administration Dicyclomine HCl 10 mg 06/21/17 10:00 07/05/17 10:00 Bentyl PO 10 mg BID [facility] Administration Diltiazem HCl 30 mg 07/03/17 14:30 07/05/17 08:35 Cardizem PO 30 mg Q6H [facility] Administration Furosemide 20 mg 06/28/17 15:22 06/29/17 01:27 Lasix IVP 20 mg ONCE PRN Administration before transfusion Furosemide 40 mg 07/04/17 10:15 07/05/17 10:00 Lasix PO 40 mg Q12 [facility] Administration Guaifenesin/Dextromethorphan 5 ml 07/01/17 21:54 07/05/17 10:59 Robitussin Dm PO 5 ml Q6H PRN Administration Cough Metronidazole 500 mg in 100 mls @ 100 mls/hr 06/22/17 15:00 07/05/17 05:08 Flagyl IVPB 100 mls/hr Q8 [facility] Administration Cefepime HCl 1 gm in 50 mls @ 100 mls/hr 06/27/17 12:00 07/05/17 00:36 Maxipime Iv 1 Gm Premix IVPB 100 mls/hr Q12H [facility] Administration Phenylephrine HCl 30 mg/ 253 mls @ 10.12 mls/hr 07/01/17 17:32 07/02/17 06:00 Sodium Chloride IV 0 mcg/min .Q24H PRN 0 mls/hr TITRATE PER MD ORDER Titration Protocol 20 MCG/MIN Norepinephrine Bitartrate 4 mg 254 mls @ 15.24 mls/hr 07/01/17 23:29 11:05 / Sodium Chloride IV 0 mcg/min .[id number] PRN 0 mls/hr TITRATE PER MD ORDER Titration Protocol 4 MCG/MIN Fluconazole 100 mls @ 100 mls/hr 07/04/17 10:00 07/05/17 10:00 Diflucan Iv 200 Mg/100 Ml Ns IVPB 100 mls/hr DAILY [facility] Administration Methimazole 5 mg 06/16/17 10:00 07/05/17 10:00 Tapazole PO 5 mg DAILY [facility] Administration Methylprednisolone 40 mg 06/28/17 13:38 06/29/17 01:26 Solu-Medrol IVP 40 mg Q4 PRN Administration Other Multivitamins 1 tab 06/16/17 10:00 07/05/17 10:00 Hexavitamin PO 1 tab DAILY [facility] Administration Vancomycin HCl 250 mg 06/19/17 10:00 07/05/17 10:00 Vancocin (Oral Or Rectal Use) PO 250 mg QID [facility] Administration - Patient Studies Lab Studies: Microbiology Studies 07/01/17 14:00 Blood Culture - Preliminary Blood-Venous NO GROWTH AFTER 3 DAYS 07/01/17 13:30 Blood Culture - Preliminary Blood-Venous NO GROWTH AFTER 3 DAYS Lab Studies 07/05/17 07/05/17 Range/Units 06:40 06:40 WBC 4.9 (4.8-10.8) K/uL RBC 2.41 L (3.80-5.20) Mil/uL Hgb 7.0 L (11.0-16.0) g/dL Hct 20.5 L (34.0-47.0) % MCV 84.9 (81.0-99.0) fL MCH 29.1 (27.0-31.0) pg MCHC 34.3 (33.0-37.0) g/dL RDW 16.2 H (11.5-14.5) % Plt Count 80 L D (130-400) K/uL MPV 9.1 (7.2-11.7) fL Neut % (Auto) 83.0 H (50.0-75.0) % Lymph % (Auto) 15.0 L (20.0-40.0) % [place] % (Auto) 1.0 (0.0-10.0) % Eos % (Auto) 1.0 (0.0-4.0) % Baso % (Auto) 0.0 (0.0-2.0) % Neut # (Auto) 4.0 (1.8-7.0) K/uL Lymph # (Auto) 0.7 L (1.0-4.3) K/uL [place] # (Auto) 0.1 (0.0-0.8) K/uL Eos # (Auto) 0.1 (0.0-0.7) K/uL Baso # (Auto) 0.0 (0.0-0.2) K/uL Neutrophils % (Manual) 54 (50-75) % Band Neutrophils % 29 H* (0-2) % Lymphocytes % (Manual) 15 L (20-40) % Monocytes % (Manual) 1 (0-10) % Eosinophils % (Manual) 1 (0-4) % Platelet Estimate Decreased L (NORMAL) Large Platelets Present Giant Platelets Present Polychromasia Slight Hypochromasia (manual) Slight Poikilocytosis (manual Slight Basophilic Stippling Slight Anisocytosis (manual) Marked Target Cells Slight Ovalocytes Slight Schistocytes Slight Sodium 131 L (132-148) mmol/L Potassium 3.4 L (3.6-5.2) mmol/L Chloride 100 (98-107) mmol/L Carbon Dioxide 25 (22-30) mmol/L Anion Gap 9 L (10-20) BUN 14 (7-17) mg/dL Creatinine 0.5 L (0.7-1.2) mg/dL Est GFR ( Amer) > 60 Est GFR (Non-Af Amer) > 60 Random Glucose 112 H (65-105) mg/dL Calcium 7.6 L (8.6-10.4) mg/dl Phosphorus 2.9 (2.5-4.5) mg/dL Magnesium 1.9 (1.6-2.3) mg/dL Total Bilirubin 1.6 H (0.2-1.3) mg/dL AST 15 (14-36) U/L ALT 32 (9-52) U/L Alkaline Phosphatase 135 H D (38-126) U/L Total Protein 5.1 L (6.3-8.3) g/dL Albumin 2.2 L (3.5-5.0) g/dL Globulin 2.8 (2.2-3.9) gm/dL Albumin/Globulin Ratio 0.8 L (1.0-2.1) Laboratory Results - last 24 hr 07/05/17 07/05/17 06:40 06:40 WBC 4.9 RBC 2.41 L Hgb 7.0 L Hct 20.5 L MCV 84.9 MCH 29.1 MCHC 34.3 RDW 16.2 H Plt Count 80 L D MPV 9.1 Neut % (Auto) 83.0 H Lymph % (Auto) 15.0 L [place] % (Auto) 1.0 Eos % (Auto) 1.0 Baso % (Auto) 0.0 Neut # (Auto) 4.0 Lymph # (Auto) 0.7 L [place] # (Auto) 0.1 Eos # (Auto) 0.1 Baso # (Auto) 0.0 Neutrophils % (Manual) 54 Band Neutrophils % 29 H* Lymphocytes % (Manual) 15 L Monocytes % (Manual) 1 Eosinophils % (Manual) 1 Platelet Estimate Decreased L Large Platelets Present Giant Platelets Present Polychromasia Slight Hypochromasia (manual) Slight Poikilocytosis (manual Slight Basophilic Stippling Slight Anisocytosis (manual) Marked Target Cells Slight Ovalocytes Slight Schistocytes Slight Sodium 131 L Potassium 3.4 L Chloride 100 Carbon Dioxide 25 Anion Gap 9 L BUN 14 Creatinine 0.5 L Est GFR ( Amer) > 60 Est GFR (Non-Af Amer) > 60 Random Glucose 112 H Calcium 7.6 L Phosphorus 2.9 Magnesium 1.9 Total Bilirubin 1.6 H AST 15 ALT 32 Alkaline Phosphatase 135 H D Total Protein 5.1 L Albumin 2.2 L Globulin 2.8 Albumin/Globulin Ratio 0.8 L Review of Systems - Review of Systems All systems: reviewed and no additional remarkable complaints except - Respiratory Respiratory: Dyspnea, Chest Congestion Critical Care Progress Note - Nutrition Nutrition: Nutrition Category Date Time Status Heart Healthy Diet [DIET] Diets 06/27/17 Dinner Active Assessment/Plan (1) CHF (congestive heart failure) Assessment and plan: 77yo F. MDS, CAD, Afib, PE, diastolic CHF, SIADH, c. diff colitis. p/w sepsis colitis vs cholecystitis. Neuro: alert and oriented x 3 Pulm: has intermittent SOB from suspected from diastolic CHF. increasing back to IV lasix 40mg q12h. CV: Afib rate controlled with cardizem po. hypotension, running albumin drip. off of pressors x 48h. holding losartan. Hem: afib on Eliquis, CAD on ASA. Renal: urine output wnl. Endo: hyperthyroidism continue methimazole. GI: heart healthy diet. T. Bili starting to rise, GB wall thickened to on Abdominal ultrasound, no gallstones. Must consider acalculous cholecystitis and possible need for percutaneous cholecystostomy. Surgery also consulted. ID: sepsis on cefepime, flagyl IV, vanco po and diflucan. patient was treated also for presumptive possible recurrent c. diff colitis. The gallbladder may also be a source of sepsis. DVT proph - Eliquis GI proph - pepcid maciel for strict I/O's during acute illness Code status - full code Current Visit: Yes Status: Acute
[2017-07-06] MEDS: Cefepime IV 1 gm in Dextrose 1 GM/50 ML BAG IVPB SCH ×2 (00:25→11:17)
[2017-07-06] MEDS: Albuterol-Ipratrop 3 mg / 0.5 (3 ml) UD INH SCH ×4 (01:04→19:46)
[2017-07-06] MEDS: metroNIDAZOLE IV 500 mg/100 ml 500 MG/100 ML BAG IVPB SCH ×3 (06:37→22:09)
[2017-07-06 06:57] LABS: HEMOGLOBIN 7.8 g/dL (11.0-16.0); MEAN CELL VOLUME 84.9 fL (81.0-99.0); MEAN CORPUSCULAR HEMOGLOBIN 28.8 pg (27.0-31.0); MEAN CORPUSCULAR HGB CONC 33.9 g/dL (33.0-37.0); MEAN PLATELET VOLUME 11.4 fL (7.2-11.7); PLATELET COUNT 72 K/uL (130-400); RED CELL DISTRIBUTION WIDTH 16.3 % (11.5-14.5); WHITE BLOOD COUNT 2.9 K/uL (4.8-10.8)
[2017-07-06 07:00] LABS: ALB/GLOB RATIO 0.7 (1.0-2.1); ALBUMIN 2.4 g/dL (3.5-5.0); ALT/SGPT 30 U/L (9-52); AST/SGOT 13 U/L (14-36); BLOOD UREA NITROGEN 15 mg/dL (7-17); CALCIUM 7.8 mg/dl (8.6-10.4); GFR AFRICAN-AMERICAN > 60; GFR NON-AFRICAN AMERICAN > 60; MAGNESIUM 1.7 mg/dL (1.6-2.3)
[2017-07-06] MEDS ORDERED: Potassium Chloride 20 mEq ER Tab PO ONE (10:00)
--- NOTE | 2017-07-06 10:23 | CP.CCUPN ---
CCU Subjective - Physician Review Events Since Last Encounter (Free Text): 07/06/17 10:22 This is currently doing well. No distress noted. Heartbeat is controlled well. Subjective (Free Text): 07/06/17 10:22 patient is awake and responding, no symptoms Critical Care Time Spent (in minutes): 45 CCU Objective - Vital Signs / Intake & Output Vital Signs (Last 4 hours): Vital Signs Pulse Resp BP Pulse Ox 07/06/17 08:00 78 23 100 07/06/17 07:55 68 21 104/59 L 100 07/06/17 07:00 55 L 19 100 07/06/17 06:56 63 19 98/61 L 100 Intake and Output (Last 8hrs): Intake & Output 07/05/17 07/06/17 07/06/17 22:59 06:59 14:59 Intake Total 940 250 0 Output Total 1250 650 0 Balance -310 -400 0 Weight 144 lb 9.972 oz Intake: Intake, IV Amount 200 50 Right Medial Port 200 50 Oral 740 200 0 Output: Urine 1250 650 0 Urine, Voided 1250 650 0 Other: # Bowel Movements 0 0 0 - Physical Exam Narrative Physical Exam (Free Text): 07/06/17 10:22 Vital signs reviewed No neck vein distention noted Chest good air entry bilaterally, no wheezing or rales noted CVS regular heart sound, no murmur noted Abdomen soft, nontender. Extremities no pedal edema [employer] alert awake oriented -3, no functional neurological deficit Head: Positive for: Atraumatic, Normocephalic Pupils: Positive for: PERRL Extroacular Muscles: Positive for: EOMI Conjunctiva: Positive for: Normal Mouth: Positive for: Moist Mucous Membranes Respiratory/Chest: Positive for: Good Air Exchange, Accessory Muscle Use, Rales , Rhonchi Cardiovascular: Positive for: Normal S1, S2 Abdomen: Positive for: Normal Bowel Sounds Neurological: Positive for: GCS=15, CN II-XII Intact Psychiatric: Positive for: Alert, Oriented x 3 - Medications Active Medications: Active Medications Generic Name Dose Route Start Last Admin Trade Name Freq PRN Reason Stop Dose Admin Acetaminophen 650 mg 06/28/17 13:35 07/01/17 09:55 Tylenol 325mg Tab PO 650 mg Q4 PRN Administration blood transfusion Albuterol/Ipratropium 3 ml 06/30/17 08:00 07/06/17 07:35 Duoneb 3 Mg/0.5 Mg (3 Ml) Ud INH 3 ml RQ6 [facility] Administration Apixaban 5 mg 06/16/17 10:00 06/24/17 11:18 Eliquis PO 5 mg BID [facility] Administration Aspirin 81 mg 06/16/17 10:00 06/24/17 11:18 Aspirin Chewable PO 81 mg DAILY [facility] Administration Diltiazem HCl 30 mg 07/03/17 14:30 07/06/17 09:10 Cardizem PO 30 mg Q6H [facility] Administration Furosemide 40 mg 07/05/17 22:00 07/05/17 21:19 Lasix IVP 40 mg Q12 [facility] Administration Metronidazole 500 mg in 100 mls @ 100 mls/hr 06/22/17 15:00 07/06/17 06:37 Flagyl IVPB 100 mls/hr Q8 [facility] Administration Cefepime HCl 1 gm in 50 mls @ 100 mls/hr 06/27/17 12:00 07/06/17 00:25 Maxipime Iv 1 Gm Premix IVPB 100 mls/hr Q12H [facility] Administration Fluconazole 100 mls @ 100 mls/hr 07/04/17 10:00 07/05/17 10:00 Diflucan Iv 200 Mg/100 Ml Ns IVPB 100 mls/hr DAILY [facility] Administration Magnesium Sulfate/Dextrose 1 gm in 100 mls @ 200 mls/hr 07/06/17 09:45 Magnesium Sulfate 1 Gm/100 Ml D5w IVPB 07/06/17 10:44 Q30M [facility] Methimazole 5 mg 06/16/17 10:00 07/05/17 10:00 Tapazole PO 5 mg DAILY [facility] Administration Multivitamins 1 tab 06/16/17 10:00 07/05/17 10:00 Hexavitamin PO 1 tab DAILY [facility] Administration Vancomycin HCl 250 mg 06/19/17 10:00 07/05/17 21:15 Vancocin (Oral Or Rectal Use) PO 250 mg QID [facility] Administration - Patient Studies Lab Studies: Microbiology Studies 07/01/17 14:00 Blood Culture - Preliminary Blood-Venous NO GROWTH AFTER 4 DAYS 07/01/17 13:30 Blood Culture - Preliminary Blood-Venous NO GROWTH AFTER 4 DAYS Lab Studies 07/06/17 07/06/17 Range/Units 06:33 06:33 WBC 2.9 L (4.8-10.8) K/uL RBC 2.70 L (3.80-5.20) Mil/uL Hgb 7.8 L (11.0-16.0) g/dL Hct 22.9 L (34.0-47.0) % MCV 84.9 (81.0-99.0) fL MCH 28.8 (27.0-31.0) pg MCHC 33.9 (33.0-37.0) g/dL RDW 16.3 H (11.5-14.5) % Plt Count 72 L (130-400) K/uL MPV 11.4 (7.2-11.7) fL Sodium 132 (132-148) mmol/L Potassium 3.0 L (3.6-5.2) mmol/L Chloride 95 L (98-107) mmol/L Carbon Dioxide 28 (22-30) mmol/L Anion Gap 12 (10-20) BUN 15 (7-17) mg/dL Creatinine 0.5 L (0.7-1.2) mg/dL Est GFR ( Amer) > 60 Est GFR (Non-Af Amer) > 60 Random Glucose 148 H (65-105) mg/dL Calcium 7.8 L (8.6-10.4) mg/dl Phosphorus 3.4 (2.5-4.5) mg/dL Magnesium 1.7 (1.6-2.3) mg/dL Total Bilirubin 1.1 (0.2-1.3) mg/dL AST 13 L (14-36) U/L ALT 30 (9-52) U/L Alkaline Phosphatase 132 H (38-126) U/L Total Protein 5.6 L (6.3-8.3) g/dL Albumin 2.4 L (3.5-5.0) g/dL Globulin 3.2 (2.2-3.9) gm/dL Albumin/Globulin Ratio 0.7 L (1.0-2.1) Laboratory Results - last 24 hr 07/06/17 07/06/17 06:33 06:33 WBC 2.9 L RBC 2.70 L Hgb 7.8 L Hct 22.9 L MCV 84.9 MCH 28.8 MCHC 33.9 RDW 16.3 H Plt Count 72 L MPV 11.4 Sodium 132 Potassium 3.0 L Chloride 95 L Carbon Dioxide 28 Anion Gap 12 BUN 15 Creatinine 0.5 L Est GFR ( Amer) > 60 Est GFR (Non-Af Amer) > 60 Random Glucose 148 H Calcium 7.8 L Phosphorus 3.4 Magnesium 1.7 Total Bilirubin 1.1 AST 13 L ALT 30 Alkaline Phosphatase 132 H Total Protein 5.6 L Albumin 2.4 L Globulin 3.2 Albumin/Globulin Ratio 0.7 L Review of Systems - Review of Systems All systems: reviewed and no additional remarkable complaints except Critical Care Progress Note - Nutrition Nutrition: Nutrition Category Date Time Status Heart Healthy Diet [DIET] Diets 06/27/17 Dinner Active Assessment/Plan - Assessment and Plan (Free Text) Assessment: Patient with acute atrial fibrillation with rapid ventricular rate, congestive heart failure. Improving now. Rate controlled well. Oxygenation is better. Out of the bed to chair, transferred to the telemetry
--- NOTE | 2017-07-06 10:24 | CP.PCM.PN ---
Subjective - Date & Time of Evaluation Date of Evaluation: 07/06/17 Time of Evaluation: 08:15 - Subjective Subjective: General surgery progress note for Dr. Messi Reeves, PGY-1 Pt S & E at bedside. Pt sitting up in bed, eating breakfast. Denies ab pain, N & V, F & C. Family friend at bedside, surprised pt is not speaking/responding in Ethiopian- reports pt usually speaks Ethiopian Objective - Vital Signs/Intake and Output Vital Signs (last 24 hours): Temp Pulse Resp BP Pulse Ox 98.7 F 78 23 104/59 L 100 07/06/17 04:00 07/06/17 08:00 07/06/17 08:00 07/06/17 07:55 07/06/17 08:00 Intake and Output: 07/06/17 07/06/17 06:59 18:59 Intake Total 730 0 Output Total 1300 0 Balance -570 0 - Medications Medications: Current Medications Acetaminophen (Tylenol 325mg Tab) 650 mg PO Q4 PRN PRN Reason: blood transfusion Last Admin: 07/01/17 09:55 Dose: 650 mg Albuterol/Ipratropium (Duoneb 3 Mg/0.5 Mg (3 Ml) Ud) 3 ml INH RQ6 [facility] Last Admin: 07/06/17 07:35 Dose: 3 ml Apixaban (Eliquis) 5 mg PO BID [facility] Last Admin: 06/24/17 11:18 Dose: 5 mg Aspirin (Aspirin Chewable) 81 mg PO DAILY [facility] Last Admin: 06/24/17 11:18 Dose: 81 mg Diltiazem HCl (Cardizem) 30 mg PO Q6H [facility] Last Admin: 07/06/17 09:10 Dose: 30 mg Furosemide (Lasix) 40 mg IVP Q12 [facility] Last Admin: 07/05/17 21:19 Dose: 40 mg Metronidazole (Flagyl) 500 mg in 100 mls @ 100 mls/hr IVPB Q8 [facility] Last Admin: 07/06/17 06:37 Dose: 100 mls/hr Cefepime HCl (Maxipime Iv 1 Gm Premix) 1 gm in 50 mls @ 100 mls/hr IVPB Q12H [facility] Last Admin: 07/06/17 00:25 Dose: 100 mls/hr Fluconazole (Diflucan Iv 200 Mg/100 Ml Ns) 100 mls @ 100 mls/hr IVPB DAILY [facility] Last Admin: 07/05/17 10:00 Dose: 100 mls/hr Magnesium Sulfate/Dextrose (Magnesium Sulfate 1 Gm/100 Ml D5w) 1 gm in 100 mls @ 200 mls/hr IVPB Q30M [facility] Stop: 07/06/17 10:44 Methimazole (Tapazole) 5 mg PO DAILY [facility] Last Admin: 07/05/17 10:00 Dose: 5 mg Multivitamins (Hexavitamin) 1 tab PO DAILY [facility] Last Admin: 07/05/17 10:00 Dose: 1 tab Vancomycin HCl (Vancocin (Oral Or Rectal Use)) 250 mg PO QID [facility] Last Admin: 07/05/17 21:15 Dose: 250 mg - Labs Labs: 07/06/17 06:33 07/06/17 06:33 PT 18.2 SECONDS (9.7-12.2) H 06/27/17 11:09 INR 1.6 06/27/17 11:09 APTT 34 SECONDS (21-34) 06/15/17 13:26 - Constitutional Appears: Non-toxic, No Acute Distress - Head Exam Head Exam: ATRAUMATIC, NORMAL INSPECTION, NORMOCEPHALIC - Eye Exam Eye Exam: EOMI, Normal appearance - ENT Exam ENT Exam: Mucous Membranes Moist, Normal Exam - Neck Exam Neck Exam: Full ROM, Normal Inspection - Respiratory Exam Respiratory Exam: NORMAL BREATHING PATTERN - Cardiovascular Exam Cardiovascular Exam: REGULAR RHYTHM - GI/Abdominal Exam GI & Abdominal Exam: Soft. absent: Distended (obese), Firm, Guarding, Rigid, Tenderness, Mass, Rebound - Extremities Exam Extremities Exam: Pedal Edema (bilateral) - Neurological Exam Neurological Exam: Alert, Awake, CN II-XII Intact - Psychiatric Exam Psychiatric exam: Normal Affect, Normal Mood - Skin Skin Exam: Dry, Intact, Normal Color, Warm Assessment and Plan - Assessment and Plan (Free Text) Assessment: 77F w/abdominal pain - resolving Plan: T bili 1.1 from 1.6 Hepatitis panel neg Cont IV Abx Febrile over 24H- Tmax 101.2 Leukopenia 2.9 from 4.9 RUQ U/S - Contracted gallbladder demonstrate diffuse wall thickening. Mild splenomegaly and mild hepatomegaly. K 3.0- replaced Further mgmt as per ICU Further recs as per attending gemma MUSE attending Lala, PGY-1
[2017-07-06 10:34] LABS: EOS # 0.2 K/uL (0.0-0.7); LYMPH # 0.5 K/uL (1.0-4.3); MONO # 0.1 K/uL (0.0-0.8); NEUT # 2.1 K/uL (1.8-7.0)
[2017-07-06] MEDS: Multiple Vitamins Tab PO SCH (10:34)
[2017-07-06] MEDS: Magnesium Sulfate 1 gm in D5W 1 GM/100 ML BAG IVPB SCH ×2 (10:34→11:16)
[2017-07-06] MEDS: methIMAzole 5 MG TAB PO SCH (10:34)
[2017-07-06] MEDS: Fluconazole IV 200mg/100 ml NS 100 ML IVPB SCH (10:35)
[2017-07-06 10:40] LABS: BANDS 28 % (0-2); EOSINOPHIL 5 % (0-4); LYMPHOCYTE 17 % (20-40); MONOCYTE 2 % (0-10); NEUTROPHIL 48 % (50-75); NUCLEATED RED BLOOD CELL 3 % (0-0); PLATELET ESTIMATE DECREASED (NORMAL); TOTAL CELLS COUNTED 100
[2017-07-06 10:41] LABS: ANISOCYTOSIS MODERATE
[2017-07-06 10:42] LABS: HYPOCHROMIC SLIGHT; OVALOCYTES SLIGHT; POLYCHROMIC SLIGHT; TOXIC GRANULATION PRESENT
[2017-07-06 10:43] LABS: GIANT PLATELETS PRESENT; LARGE PLATELETS PRESENT; TARGET CELLS SLIGHT
[2017-07-06 10:44] LABS: SCHISTOCYTES SLIGHT
[2017-07-06 10:45] LABS: POIKILOCYTOSIS SLIGHT
[2017-07-06] MEDS: Vancomycin 125 MG/5 ML SOLN (ORAL/RECTAL) PO SCH ×4 (11:19→22:08)
--- NOTE | 2017-07-06 11:29 | CP.PCM.PN ---
Subjective - Date & Time of Evaluation Date of Evaluation: 07/06/17 Time of Evaluation: 11:27 - Subjective Subjective: S: Awake. No fever. C/o weakness and poor appetite Objective - Vital Signs/Intake and Output Vital Signs (last 24 hours): Temp Pulse Resp BP Pulse Ox 98.7 F 78 23 114/68 100 07/06/17 04:00 07/06/17 08:00 07/06/17 08:00 07/06/17 10:34 07/06/17 08:00 Intake and Output: 07/06/17 07/06/17 06:59 18:59 Intake Total 730 0 Output Total 1300 0 Balance -570 0 - Medications Medications: Current Medications Acetaminophen (Tylenol 325mg Tab) 650 mg PO Q4 PRN PRN Reason: blood transfusion Last Admin: 07/01/17 09:55 Dose: 650 mg Albuterol/Ipratropium (Duoneb 3 Mg/0.5 Mg (3 Ml) Ud) 3 ml INH RQ6 [facility] Last Admin: 07/06/17 07:35 Dose: 3 ml Apixaban (Eliquis) 5 mg PO BID [facility] Last Admin: 06/24/17 11:18 Dose: 5 mg Aspirin (Aspirin Chewable) 81 mg PO DAILY [facility] Last Admin: 06/24/17 11:18 Dose: 81 mg Diltiazem HCl (Cardizem) 30 mg PO Q6H [facility] Last Admin: 07/06/17 09:10 Dose: 30 mg Furosemide (Lasix) 40 mg IVP Q12 [facility] Last Admin: 07/06/17 10:34 Dose: 40 mg Metronidazole (Flagyl) 500 mg in 100 mls @ 100 mls/hr IVPB Q8 [facility] Last Admin: 07/06/17 06:37 Dose: 100 mls/hr Cefepime HCl (Maxipime Iv 1 Gm Premix) 1 gm in 50 mls @ 100 mls/hr IVPB Q12H [facility] Last Admin: 07/06/17 11:17 Dose: 100 mls/hr Fluconazole (Diflucan Iv 200 Mg/100 Ml Ns) 100 mls @ 100 mls/hr IVPB DAILY [facility] Last Admin: 07/06/17 10:35 Dose: 100 mls/hr Methimazole (Tapazole) 5 mg PO DAILY [facility] Last Admin: 07/06/17 10:34 Dose: 5 mg Multivitamins (Hexavitamin) 1 tab PO DAILY [facility] Last Admin: 07/06/17 10:34 Dose: 1 tab Vancomycin HCl (Vancocin (Oral Or Rectal Use)) 250 mg PO QID [facility] Last Admin: 07/06/17 11:19 Dose: 250 mg - Labs Labs: 07/06/17 06:33 07/06/17 06:33 PT 18.2 SECONDS (9.7-12.2) H 06/27/17 11:09 INR 1.6 06/27/17 11:09 APTT 34 SECONDS (21-34) 06/15/17 13:26 - Constitutional Appears: Chronically Ill - Head Exam Head Exam: NORMAL INSPECTION - Eye Exam Eye Exam: Normal appearance - ENT Exam ENT Exam: Mucous Membranes Moist - Neck Exam Neck Exam: Normal Inspection - Respiratory Exam Respiratory Exam: Decreased Breath Sounds - Cardiovascular Exam Cardiovascular Exam: Irregular Rhythm - GI/Abdominal Exam GI & Abdominal Exam: Soft - Rectal Exam Rectal Exam: Deferred - Extremities Exam Extremities Exam: Pedal Edema Assessment and Plan (1) CHF (congestive heart failure) Status: Acute (2) Rapid atrial fibrillation Status: Acute (3) Myelodysplasia (myelodysplastic syndrome) Status: Chronic (4) Pulmonary embolism on long-term anticoagulation therapy Status: Acute (5) Pulmonary embolism Status: Chronic (6) Fever Status: Acute (7) Sepsis Status: Acute - Assessment and Plan (Free Text) Assessment: A/p: Continue medications. Physical therapy consult
--- NOTE | 2017-07-06 14:40 | CP.PCM.PN ---
Subjective - Date & Time of Evaluation Date of Evaluation: 07/06/17 Time of Evaluation: 14:00 - Subjective Subjective: the patient is seen and examined Sitting comfortably in no distress Bradycardic with heart rate in the mid 50s Patient on Cardizem No shortness of breath continue antibiotics as per infectio Continue neb treatment Objective - Vital Signs/Intake and Output Vital Signs (last 24 hours): Temp Pulse Resp BP Pulse Ox 97.3 F L 59 L 18 101/65 99 07/06/17 08:00 07/06/17 11:55 07/06/17 11:55 07/06/17 11:55 07/06/17 11:55 Intake and Output: 07/06/17 07/06/17 06:59 18:59 Intake Total 730 650 Output Total 1300 0 Balance -570 650 - Medications Medications: Current Medications Acetaminophen (Tylenol 325mg Tab) 650 mg PO Q4 PRN PRN Reason: blood transfusion Last Admin: 07/01/17 09:55 Dose: 650 mg Albuterol/Ipratropium (Duoneb 3 Mg/0.5 Mg (3 Ml) Ud) 3 ml INH RQ6 [facility] Last Admin: 07/06/17 13:57 Dose: 3 ml Apixaban (Eliquis) 5 mg PO BID [facility] Last Admin: 06/24/17 11:18 Dose: 5 mg Aspirin (Aspirin Chewable) 81 mg PO DAILY [facility] Last Admin: 06/24/17 11:18 Dose: 81 mg Diltiazem HCl (Cardizem) 30 mg PO Q6H [facility] Last Admin: 07/06/17 09:10 Dose: 30 mg Furosemide (Lasix) 40 mg IVP Q12 [facility] Last Admin: 07/06/17 10:34 Dose: 40 mg Metronidazole (Flagyl) 500 mg in 100 mls @ 100 mls/hr IVPB Q8 [facility] Last Admin: 07/06/17 13:33 Dose: 100 mls/hr Cefepime HCl (Maxipime Iv 1 Gm Premix) 1 gm in 50 mls @ 100 mls/hr IVPB Q12H [facility] Last Admin: 07/06/17 11:17 Dose: 100 mls/hr Fluconazole (Diflucan Iv 200 Mg/100 Ml Ns) 100 mls @ 100 mls/hr IVPB DAILY [facility] Last Admin: 07/06/17 10:35 Dose: 100 mls/hr Methimazole (Tapazole) 5 mg PO DAILY [facility] Last Admin: 07/06/17 10:34 Dose: 5 mg Multivitamins (Hexavitamin) 1 tab PO DAILY [facility] Last Admin: 07/06/17 10:34 Dose: 1 tab Vancomycin HCl (Vancocin (Oral Or Rectal Use)) 250 mg PO QID [facility] Last Admin: 07/06/17 11:19 Dose: 250 mg - Labs Labs: 07/06/17 06:33 07/06/17 06:33 PT 18.2 SECONDS (9.7-12.2) H 06/27/17 11:09 INR 1.6 06/27/17 11:09 APTT 34 SECONDS (21-34) 06/15/17 13:26 Assessment and Plan (1) SOB (shortness of breath) Status: Acute (2) Myelodysplasia (myelodysplastic syndrome) Status: Acute
--- NOTE | 2017-07-06 16:03 | CP.PCM.PN ---
Subjective - Date & Time of Evaluation Date of Evaluation: 07/06/17 Time of Evaluation: 07:00 - Subjective Subjective: seen and examined Sitting comfortably in no distress Bradycardic with heart rate in the mid 50s Patient on Cardizem No shortness of breath Objective - Vital Signs/Intake and Output Vital Signs (last 24 hours): Temp Pulse Resp BP Pulse Ox 97.3 F L 64 17 95/55 L 100 07/06/17 12:00 07/06/17 15:00 07/06/17 15:00 07/06/17 14:55 07/06/17 15:00 Intake and Output: 07/06/17 07/06/17 06:59 18:59 Intake Total 730 960 Output Total 1300 0 Balance -570 960 - Medications Medications: Current Medications Acetaminophen (Tylenol 325mg Tab) 650 mg PO Q4 PRN PRN Reason: blood transfusion Last Admin: 07/01/17 09:55 Dose: 650 mg Albuterol/Ipratropium (Duoneb 3 Mg/0.5 Mg (3 Ml) Ud) 3 ml INH RQ6 [facility] Last Admin: 07/06/17 13:57 Dose: 3 ml Apixaban (Eliquis) 5 mg PO BID [facility] Last Admin: 06/24/17 11:18 Dose: 5 mg Aspirin (Aspirin Chewable) 81 mg PO DAILY [facility] Last Admin: 06/24/17 11:18 Dose: 81 mg Diltiazem HCl (Cardizem) 30 mg PO Q6H [facility] Last Admin: 07/06/17 14:40 Dose: Not Given Furosemide (Lasix) 40 mg IVP Q12 [facility] Last Admin: 07/06/17 10:34 Dose: 40 mg Metronidazole (Flagyl) 500 mg in 100 mls @ 100 mls/hr IVPB Q8 [facility] Last Admin: 07/06/17 13:33 Dose: 100 mls/hr Cefepime HCl (Maxipime Iv 1 Gm Premix) 1 gm in 50 mls @ 100 mls/hr IVPB Q12H [facility] Last Admin: 07/06/17 11:17 Dose: 100 mls/hr Fluconazole (Diflucan Iv 200 Mg/100 Ml Ns) 100 mls @ 100 mls/hr IVPB DAILY [facility] Last Admin: 07/06/17 10:35 Dose: 100 mls/hr Methimazole (Tapazole) 5 mg PO DAILY [facility] Last Admin: 07/06/17 10:34 Dose: 5 mg Multivitamins (Hexavitamin) 1 tab PO DAILY [facility] Last Admin: 07/06/17 10:34 Dose: 1 tab Vancomycin HCl (Vancocin (Oral Or Rectal Use)) 250 mg PO QID [facility] Last Admin: 07/06/17 14:44 Dose: 250 mg - Labs Labs: 07/06/17 06:33 07/06/17 06:33 PT 18.2 SECONDS (9.7-12.2) H 06/27/17 11:09 INR 1.6 06/27/17 11:09 APTT 34 SECONDS (21-34) 06/15/17 13:26 - Constitutional Appears: Non-toxic, Cachectic, Chronically Ill - Head Exam Head Exam: NORMOCEPHALIC - Eye Exam Eye Exam: PERRL - ENT Exam ENT Exam: Mucous Membranes Dry - Neck Exam Neck Exam: absent: Lymphadenopathy - Respiratory Exam Respiratory Exam: Decreased Breath Sounds - Cardiovascular Exam Cardiovascular Exam: REGULAR RHYTHM - GI/Abdominal Exam GI & Abdominal Exam: Distended - Rectal Exam Rectal Exam: Deferred - Exam Exam: NORMAL INSPECTION Assessment and Plan (1) CHF (congestive heart failure) Status: Acute (2) Rapid atrial fibrillation Status: Acute (3) CAD (coronary artery disease) Status: Acute (4) Cough Status: Acute (5) Dehydration Status: Acute (6) Hyponatremia Status: Acute (7) Lower respiratory infection Status: Acute (8) Myelodysplasia (myelodysplastic syndrome) Status: Acute
--- NOTE | 2017-07-06 18:01 | PN ---
ENDO FOLLOWUP NOTE LOCATION: ICU, room 8. SUBJECTIVE: This is a 77-year-old female with acute exacerbation of congestive heart failure with supervening rapid atrial fibrillation and has improved clinically and hemodynamically as noted thereof. She has been followed closely for metabolic management with known history of hyperthyroidism and is tolerating the medications as given thereof. LABORATORY DATA: Her latest chemistry showed a BUN of 15, sodium 132, potassium 3.0, chloride 95, CO2 of 28, glucose 148, and creatinine 0.5. Her latest thyroid studies showed a T4 of 5.0 with a TSH of 3.52 and serum cortisol of 18.9 mcg/dL. PLAN: At this time, we will continue the same low dose Tapazole given as 5 mg once daily in the morning as ordered. We will titrate incrementally as indicated to optimize metabolic control. We will obtain serial chemistries and supplement accordingly as needed. We will follow and advice accordingly. Marely Raymundo MD
[2017-07-07] MEDS: Cefepime IV 1 gm in Dextrose 1 GM/50 ML BAG IVPB SCH ×2 (00:57→12:32)
[2017-07-07] MEDS: Albuterol-Ipratrop 3 mg / 0.5 (3 ml) UD INH SCH ×4 (01:21→21:10)
[2017-07-07] MEDS: metroNIDAZOLE IV 500 mg/100 ml 500 MG/100 ML BAG IVPB SCH ×3 (05:00→22:05)
[2017-07-07 06:35] LABS: LYMPH # 0.5 K/uL (1.0-4.3); LYMPH % 4.4 % (20.0-40.0); MEAN CELL VOLUME 85.1 fL (81.0-99.0); MEAN CORPUSCULAR HEMOGLOBIN 28.9 pg (27.0-31.0); MEAN CORPUSCULAR HGB CONC 33.9 g/dL (33.0-37.0); MEAN PLATELET VOLUME 8.3 fL (7.2-11.7); MONO # 0.4 K/uL (0.0-0.8); MONO % 3.2 % (0.0-10.0); NEUT # 11.4 K/uL (1.8-7.0); NEUT % 92.4 % (50.0-75.0); PLATELET COUNT 161 K/uL (130-400); RBC 4.06 Mil/uL (3.80-5.20); RED CELL DISTRIBUTION WIDTH 13.3 % (11.5-14.5)
[2017-07-07 06:36] LABS: WHITE BLOOD COUNT 12.3 K/uL (4.8-10.8)
[2017-07-07 06:37] LABS: HEMOGLOBIN 11.7 g/dL (11.0-16.0)
[2017-07-07 06:50] LABS: BLOOD UREA NITROGEN 23 mg/dL (7-17); CALCIUM 8.3 mg/dl (8.6-10.4); GFR AFRICAN-AMERICAN > 60; GFR NON-AFRICAN AMERICAN > 60
[2017-07-07 07:03] LABS: T4 4.02 ug/dL (5.5-11.0)
--- NOTE | 2017-07-07 07:07 | PN ---
DATE: 07/03/2017. FOLLOWUP RENAL CONSULTATION LOCATION: The patient is located in ICU, bed 8. REQUESTED BY: Deion Marie MD. REASON FOR FOLLOWUP: Hyponatremia. HISTORY OF PRESENT ILLNESS: Mrs. Espino is a 77 years old elderly, very pleasant [place] female with the history of hypertension, CHF, coronary artery disease, AFib, pulmonary embolism, status post cardiac cath consistent with questionable distal RCA embolus, unable to place stent, was admitted after discharging from the medical center few hours later to the [facility] with shortness of breath and found to have a low serum sodium, and also subsequently patient developed C. diff colitis. 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 The patient is off pressors today, on IV fluids, Ringer lactate at 70 mL per hour, not in distress. PHYSICAL EXAMINATION: VITAL SIGNS: This afternoon her blood pressure is 123/66, pulse 91, respirations 17, saturation 100% and temperature 99.7, height 5 feet 2 inches and weight is 148 pounds. GENERAL: Mrs. Espino is a 77 years old elderly female, moderately built, moderately nourished on BiPAP. HEENT: Pupils normal, reactive to light and accommodation. Conjunctivae pink. Sclerae anicteric. No thyroid enlargement. LUNGS: Symmetric on both sides. Bilateral breath sounds present. Bilateral basal crackles present. CVS: Mcleod at the fifth intercostal space, midclavicular line. S1 and S2 audible. Irregularly irregular. ABDOMEN: Slightly protuberant, soft, tympanic. No guarding. No rigidity. No hepatosplenomegaly. EXCHANGE SPECIALIST: The patient is alert, awake, oriented x2 to 3. Sensory and motor system is grossly within normal limits. EXTREMITIES: No cyanosis, no clubbing. The patient has 2-3+ edema in both lower extremities. MEDICATIONS: Include as follows; aspirin 81 mg on hold, diltiazem 20 mg p.o. q. 6 hours, Diflucan 200 mg IV piggyback daily, DuoNeb inhaler 3 mL q. 6 hours, Eliquis on hold, Flagyl 500 mg q. 8 hours, subcu heparin 5000 units q. 8 hours, multivitamin 1 tablet daily, Ringer lactate 75 mL IV daily, digoxin 0.25 mg IV q. 12 hours, Lasix 20 mg p.o. b.i.d., cefepime 1 gm q. 12 hours, Levophed 4 mcg, Phenylephrine 20 mcg, Solu-Medrol 40 mg IV q. 4 hours, methimazole 5 mg p.o. daily, Tylenol and vancomycin 250 mg p.o. q.i.d. LABORATORY DATA: Include as follows as of 07/03/2017; WBC 16.5, hemoglobin 8.7, hematocrit is 26.3, and platelet count 57, neutrophils 37, bands 56, lymph 3, monos 2. Sodium 129, potassium 3.6, chloride 99, CO2 23, BUN 18, creatinine 0.6, glucose 111, calcium 7.8, phosphorus 2.4, magnesium 1.9, total bilirubin 1.0, AST 33, ALT 38, alkaline phosphatase 149, total protein 5.1, albumin is 2.1. Blood culture as of 07/01/2017 is negative day 2. ASSESSMENT: In summary, Mrs. Espino is a 77 years old elderly [place] female with history of hypertension, congestive heart failure, coronary artery disease, atrial fibrillation, pulmonary embolism and status post cardiac cath with distal right coronary artery embolus, unable to place stent was admitted with shortness of breath and hyponatremia, status post treatment for Clostridium difficile colitis, status post renal replacement therapy with atrial fibrillation with rapid ventricular response on pressors until this morning, started on IV fluids and pressors was on hold. 1. Hyponatremia most likely multifactorial cannot rule out syndrome of inappropriate antidiuretic hormone (secretion), cannot rule out secondary to thyroid disorder. 2. Sepsis. 3. Anemia secondary to myelodysplastic syndrome. 4. Hypoalbuminemia secondary to p.o. intake. 5. Hypophosphatemia secondary to decrease p.o. intake. PLAN: Supplementing phosphorus as a Neutra-Phos 1 packet p.o. t.i.d. If patient can tolerate, otherwise consider K-Phos 15 millimoles x1 dose. We will follow with you. Overall prognosis is guarded. Continue IV antibiotics as per ID recommendations. Rehan Dos Santos MD
--- NOTE | 2017-07-07 07:34 | CP.PCM.PN ---
Subjective - Date & Time of Evaluation Date of Evaluation: 07/07/17 Time of Evaluation: 07:10 - Subjective Subjective: General Surgery- Dr. Crooks Patient seen and examined at bedside this AM. Tolerating CLD. + OOB 2C. Pt complaining for coughing. Nicotine patch on and in place. Denies F/C CP/SOB N/V/ D Objective - Vital Signs/Intake and Output Vital Signs (last 24 hours): Temp Pulse Resp BP Pulse Ox 97.7 F 79 22 108/70 97 07/07/17 04:00 07/07/17 02:00 07/07/17 04:00 07/07/17 00:00 07/07/17 04:00 - Medications Medications: Current Medications Acetaminophen (Tylenol 325mg Tab) 650 mg PO Q4 PRN PRN Reason: blood transfusion Last Admin: 07/01/17 09:55 Dose: 650 mg Albuterol/Ipratropium (Duoneb 3 Mg/0.5 Mg (3 Ml) Ud) 3 ml INH RQ6 [facility] Last Admin: 07/07/17 01:21 Dose: 3 ml Apixaban (Eliquis) 5 mg PO BID [facility] Last Admin: 06/24/17 11:18 Dose: 5 mg Aspirin (Aspirin Chewable) 81 mg PO DAILY [facility] Last Admin: 06/24/17 11:18 Dose: 81 mg Diltiazem HCl (Cardizem) 30 mg PO Q6H [facility] Last Admin: 07/07/17 05:38 Dose: 30 mg Furosemide (Lasix) 40 mg IVP Q12 [facility] Last Admin: 07/06/17 22:08 Dose: 40 mg Metronidazole (Flagyl) 500 mg in 100 mls @ 100 mls/hr IVPB Q8 [facility] Last Admin: 07/07/17 05:00 Dose: 100 mls/hr Cefepime HCl (Maxipime Iv 1 Gm Premix) 1 gm in 50 mls @ 100 mls/hr IVPB Q12H [facility] Last Admin: 07/07/17 00:57 Dose: 100 mls/hr Fluconazole (Diflucan Iv 200 Mg/100 Ml Ns) 100 mls @ 100 mls/hr IVPB DAILY [facility] Last Admin: 07/06/17 10:35 Dose: 100 mls/hr Methimazole (Tapazole) 5 mg PO DAILY [facility] Last Admin: 07/06/17 10:34 Dose: 5 mg Multivitamins (Hexavitamin) 1 tab PO DAILY [facility] Last Admin: 07/06/17 10:34 Dose: 1 tab Vancomycin HCl (Vancocin (Oral Or Rectal Use)) 250 mg PO QID [facility] Last Admin: 07/06/17 22:08 Dose: 250 mg - Labs Labs: 07/07/17 06:30 07/07/17 06:31 PT 18.2 SECONDS (9.7-12.2) H 06/27/17 11:09 INR 1.6 06/27/17 11:09 APTT 34 SECONDS (21-34) 06/15/17 13:26 - Constitutional Appears: Non-toxic, No Acute Distress - Head Exam Head Exam: ATRAUMATIC - Eye Exam Eye Exam: EOMI. absent: Scleral icterus - ENT Exam ENT Exam: Mucous Membranes Moist - Respiratory Exam Respiratory Exam: NORMAL BREATHING PATTERN. absent: Accessory Muscle Use, Respiratory Distress - Cardiovascular Exam Cardiovascular Exam: +S1, +S2. absent: Bradycardia, Tachycardia - Neurological Exam Neurological Exam: Alert, Awake, Oriented x3 Assessment and Plan - Assessment and Plan (Free Text) Assessment: 77F w/abdominal pain - resolving T.Bili trending down RUQ U/S - Contracted gallbladder demonstrate diffuse wall thickening. No evidence of acute cholecystitis Plan: Cont IV Abx Recommend IR if GB still suspect source of infection. for potential angeline tube no acute surgical intervention at this time Further mgmt as per ICU d[facility]
[2017-07-07 08:39] LABS: ANISOCYTOSIS SLIGHT; BANDS 29 % (0-2); HYPOCHROMIC SLIGHT; LYMPHOCYTE 6 % (20-40); MONOCYTE 3 % (0-10); NEUTROPHIL 62 % (50-75); PLATELET ESTIMATE NORMAL (NORMAL); POIKILOCYTOSIS SLIGHT; TOTAL CELLS COUNTED 100
[2017-07-07 08:40] LABS: BURR CELLS SLIGHT; TOXIC GRANULATION PRESENT
--- NOTE | 2017-07-07 09:40 | CP.PCM.PN ---
Subjective - Date & Time of Evaluation Date of Evaluation: 05/06/18 Time of Evaluation: 08:45 - Subjective Subjective: Pt (+) very weak, awaken but goes back to sleep. No CP, no SOB, * (+) cough, no diarhea Episode of Tachy/ gaby noted Objective - Vital Signs/Intake and Output Vital Signs (last 24 hours): Temp Pulse Resp BP Pulse Ox 97.7 F 125 H 34 H 109/66 100 07/07/17 04:00 07/07/17 08:02 07/07/17 08:00 07/07/17 07:29 07/07/17 08:00 Intake and Output: 07/07/17 07/07/17 06:59 18:59 Intake Total 250 Output Total 650 Balance -400 - Medications Medications: Current Medications Acetaminophen (Tylenol 325mg Tab) 650 mg PO Q4 PRN PRN Reason: blood transfusion Last Admin: 07/01/17 09:55 Dose: 650 mg Albuterol/Ipratropium (Duoneb 3 Mg/0.5 Mg (3 Ml) Ud) 3 ml INH RQ6 [facility] Last Admin: 07/07/17 08:07 Dose: 3 ml Apixaban (Eliquis) 5 mg PO BID [facility] Last Admin: 06/24/17 11:18 Dose: 5 mg Aspirin (Aspirin Chewable) 81 mg PO DAILY [facility] Last Admin: 06/24/17 11:18 Dose: 81 mg Diltiazem HCl (Cardizem) 30 mg PO Q6H [facility] Last Admin: 07/07/17 08:29 Dose: 30 mg Furosemide (Lasix) 40 mg IVP Q12 [facility] Last Admin: 07/06/17 22:08 Dose: 40 mg Metronidazole (Flagyl) 500 mg in 100 mls @ 100 mls/hr IVPB Q8 [facility] Last Admin: 07/07/17 05:00 Dose: 100 mls/hr Cefepime HCl (Maxipime Iv 1 Gm Premix) 1 gm in 50 mls @ 100 mls/hr IVPB Q12H [facility] Last Admin: 07/07/17 00:57 Dose: 100 mls/hr Fluconazole (Diflucan Iv 200 Mg/100 Ml Ns) 100 mls @ 100 mls/hr IVPB DAILY [facility] Last Admin: 07/06/17 10:35 Dose: 100 mls/hr Methimazole (Tapazole) 5 mg PO DAILY [facility] Last Admin: 07/06/17 10:34 Dose: 5 mg Multivitamins (Hexavitamin) 1 tab PO DAILY [facility] Last Admin: 07/06/17 10:34 Dose: 1 tab Vancomycin HCl (Vancocin (Oral Or Rectal Use)) 250 mg PO QID [facility] Last Admin: 07/06/17 22:08 Dose: 250 mg - Labs Labs: 07/07/17 06:30 07/07/17 06:31 PT 18.2 SECONDS (9.7-12.2) H 06/27/17 11:09 INR 1.6 06/27/17 11:09 APTT 34 SECONDS (21-34) 06/15/17 13:26 - Constitutional Appears: No Acute Distress - Eye Exam Eye Exam: Normal appearance - ENT Exam ENT Exam: Mucous Membranes Moist - Neck Exam Neck Exam: Full ROM. absent: Lymphadenopathy - Respiratory Exam Respiratory Exam: Decreased Breath Sounds, Rhonchi. absent: Rales, Wheezes - Cardiovascular Exam Cardiovascular Exam: Irregular Rhythm, +S1, +S2. absent: Gallop - GI/Abdominal Exam GI & Abdominal Exam: Soft. absent: Tenderness, Mass - Extremities Exam Extremities Exam: Full ROM, Normal Capillary Refill. absent: Calf Tenderness, Joint Swelling Assessment and Plan - Assessment and Plan (Free Text) Assessment: HTN, recent PE & C diff AF; MDS, sepsis Prognosis is poor Cont meds/ supportive care
[2017-07-07] MEDS: Multiple Vitamins Tab PO SCH (10:00)
[2017-07-07] MEDS: Vancomycin 125 MG/5 ML SOLN (ORAL/RECTAL) PO SCH ×4 (10:01→22:20)
[2017-07-07] MEDS: Fluconazole IV 200mg/100 ml NS 100 ML IVPB SCH (10:02)
[2017-07-07] MEDS: methIMAzole 5 MG TAB PO SCH (10:04)
--- NOTE | 2017-07-07 10:17 | PN ---
FOLLOWUP RENAL CONSULTATION DATE: 07/04/2017 REQUESTED BY: Deion Marie MD REASON FOR FOLLOWUP: Hyponatremia. SUBJECTIVE: Mrs. Espino is a 77-year-old elderly very pleasant [place] female with history of longstanding hypertension, CHF, coronary artery disease, AFib, pulmonary embolism status post cardiac cath consistent with questionable distal RCA thrombus, who was admitted with shortness of breath. Subsequently, the patient was found to have C. diff colitis and also myelodysplastic syndrome requiring multiple transfusions. The patient was transferred to ICU this week after AFib with rapid ventricular response. The patient is feeling slightly better today. The patient is off the pressors and is status post IV albumin. PHYSICAL EXAMINATION GENERAL: Mrs. Espino is a 77-year-old elderly female moderately-built, moderately-nourished, not in distress. VITAL SIGNS: This evening, blood pressure 135/72, pulse 94, respirations 29 and T-max is 101.2 and current temperature 100.1. HEENT: Pupils normal, reactive to light and accommodation. Conjunctivae slightly pale. Sclerae anicteric. Tongue is moist. Trachea is midline. LUNGS: Symmetric on both side. Bilateral breath sounds present. Bilateral crackles present. CARDIOVASCULAR: [place] at the fifth intercostal space, midclavicular line. S1 and S2 audible. Irregularly irregular. ABDOMEN: Normal in appearance, slightly protuberant, soft, tympanic. No guarding. No rigidity. No hepatosplenomegaly. ACCOUNTING ASSOCIATE: The patient is alert, awake and oriented x2 to 3. Sensory motor system is within normal limits. EXTREMITIES: No cyanosis. No clubbing. The patient has 2+ edema on both lower extremities. INTAKE AND OUTPUT: Intake is 2163 and output is 325 mL. CURRENT MEDICATIONS: Include as follows; Bentyl and Cardizem 30 mg p.o. q.6 hours, Diflucan 200 mg IV piggyback daily, DuoNeb inhaler and Eliquis on hold, Flagyl 500 mg IV q.8 hours, multivitamin one tablet daily, Lasix 40 mg p.o. q.12 hours, cefepime 1 g q.12 hours and Solu-Medrol 40 mg IV q.4 hours p.r.n., Tapazole 5 mg p.o. daily, Tylenol and vancomycin 250 mg p.o. q.i.d. LABORATORY DATA: As of 07/04/2017, WBC 7.5, hemoglobin 8.8, hematocrit 25.4 and platelets 133. Neutrophil is 49, bands 35, lymph 9, mono 6 and eosinophil 1. Sodium 129, potassium 3.2, chloride 97, CO2 of 26, BUN 13, creatinine 0.5, glucose 73, calcium is 7.9, phosphorus 2.1 and magnesium 1.8. Total bili 1.4, AST 33, ALT 35 and alkaline phosphatase 221. Total protein 5.2 and albumin is 2.1. ASSESSMENT AND PLAN: In summary, Mrs. Srinivas Ortiz is a 77-year-old elderly female with hypertension, congestive heart failure, pulmonary embolism, atrial fibrillation, Clostridium difficile colitis, myelodysplastic syndrome, anemia was admitted with shortness of breath, subsequently found to have Clostridium difficile colitis and also statu post with atrial fibrillation with rapid ventricular response and low sodium. 1. Hyponatremia, most likely secondary to multifactorial, cannot rule out syndrome of inappropriate antidiuretic hormone and cannot rule out secondary to thyroid disorder. 2. Sepsis. 3. Anemia secondary to myelodysplastic syndrome. 4. Congestive heart failure. 5. Atrial fibrillation with rapid ventricular response. Continue IV antibiotics as per Infectious Disease recommendations. 6. Status post Clostridium difficile colitis. Continue p.o. vancomycin. Continue gentle diuresis. We will follow with you. Thank you for allowing me to participate in your patient's care. Overall prognosis is guarded. Rehan Dos Santos MD
--- NOTE | 2017-07-07 12:01 | CP.PCM.PN ---
Subjective - Date & Time of Evaluation Date of Evaluation: 07/07/17 Time of Evaluation: 08:00 - Subjective Subjective: INCREASED EDEMA + SOB Objective - Vital Signs/Intake and Output Vital Signs (last 24 hours): Temp Pulse Resp BP Pulse Ox 97.7 F 125 H 34 H 92/48 L 100 07/07/17 04:00 07/07/17 08:02 07/07/17 08:00 07/07/17 10:01 07/07/17 08:00 Intake and Output: 07/07/17 07/07/17 06:59 18:59 Intake Total 250 Output Total 650 Balance -400 - Medications Medications: Current Medications Acetaminophen (Tylenol 325mg Tab) 650 mg PO Q4 PRN PRN Reason: blood transfusion Last Admin: 07/01/17 09:55 Dose: 650 mg Albuterol/Ipratropium (Duoneb 3 Mg/0.5 Mg (3 Ml) Ud) 3 ml INH RQ6 COUNTS INCLUDE 234 BEDS AT [facility] Last Admin: 07/07/17 08:07 Dose: 3 ml Apixaban (Eliquis) 5 mg PO BID COUNTS INCLUDE 234 BEDS AT [facility] Last Admin: 06/24/17 11:18 Dose: 5 mg Aspirin (Aspirin Chewable) 81 mg PO DAILY COUNTS INCLUDE 234 BEDS AT [facility] Last Admin: 06/24/17 11:18 Dose: 81 mg Diltiazem HCl (Cardizem) 30 mg PO Q6H COUNTS INCLUDE 234 BEDS AT [facility] Last Admin: 07/07/17 08:29 Dose: 30 mg Furosemide (Lasix) 40 mg IVP Q12 COUNTS INCLUDE 234 BEDS AT [facility] Last Admin: 07/07/17 10:01 Dose: Not Given Metronidazole (Flagyl) 500 mg in 100 mls @ 100 mls/hr IVPB Q8 COUNTS INCLUDE 234 BEDS AT [facility] Last Admin: 07/07/17 05:00 Dose: 100 mls/hr Cefepime HCl (Maxipime Iv 1 Gm Premix) 1 gm in 50 mls @ 100 mls/hr IVPB Q12H COUNTS INCLUDE 234 BEDS AT [facility] Last Admin: 07/07/17 00:57 Dose: 100 mls/hr Fluconazole (Diflucan Iv 200 Mg/100 Ml Ns) 100 mls @ 100 mls/hr IVPB DAILY COUNTS INCLUDE 234 BEDS AT [facility] Last Admin: 07/07/17 10:02 Dose: 100 mls/hr Methimazole (Tapazole) 5 mg PO DAILY COUNTS INCLUDE 234 BEDS AT [facility] Last Admin: 07/07/17 10:04 Dose: 5 mg Multivitamins (Hexavitamin) 1 tab PO DAILY COUNTS INCLUDE 234 BEDS AT [facility] Last Admin: 07/07/17 10:00 Dose: 1 tab Vancomycin HCl (Vancocin (Oral Or Rectal Use)) 250 mg PO QID COUNTS INCLUDE 234 BEDS AT [facility] Last Admin: 07/07/17 10:01 Dose: 250 mg - Labs Labs: 07/07/17 06:30 07/07/17 06:31 PT 18.2 SECONDS (9.7-12.2) H 06/27/17 11:09 INR 1.6 06/27/17 11:09 APTT 34 SECONDS (21-34) 06/15/17 13:26 - Constitutional Appears: Non-toxic, Chronically Ill - Head Exam Head Exam: NORMOCEPHALIC - Eye Exam Eye Exam: PERRL - ENT Exam ENT Exam: Mucous Membranes Dry - Neck Exam Neck Exam: absent: Lymphadenopathy - Respiratory Exam Respiratory Exam: Decreased Breath Sounds - Cardiovascular Exam Cardiovascular Exam: REGULAR RHYTHM - GI/Abdominal Exam GI & Abdominal Exam: Distended - Rectal Exam Rectal Exam: Deferred - Exam Exam: NORMAL INSPECTION - Extremities Exam Extremities Exam: Pedal Edema. absent: Calf Tenderness - Back Exam Back Exam: absent: CVA tenderness (L), CVA tenderness (R) Assessment and Plan (1) CHF (congestive heart failure) Status: Acute (2) Rapid atrial fibrillation Status: Acute (3) CAD (coronary artery disease) Status: Acute (4) Cough Status: Acute (5) Dehydration Status: Acute (6) Hyponatremia Status: Acute (7) Lower respiratory infection Status: Acute (8) Myelodysplasia (myelodysplastic syndrome) Status: Acute - Assessment and Plan (Free Text) Assessment: NEED CARDIO AND PULM RE-EVAL
[2017-07-07] MEDS: Digoxin 500 mcg/2ml (0.5 mg/2ml) Inj IVP SCH ×2 (13:20→20:19)
[2017-07-07] MEDS ORDERED: Sodium Chloride 0.9% 500 ML IV ONE (15:35)
--- NOTE | 2017-07-07 16:35 | RAD ---
HISTORY: fever COMPARISON: Chest x-ray performed 07/05/17 TECHNIQUE: Chest, one view. FINDINGS: Right-sided PICC extends expected location of the SVC. LUNGS: Diffuse interstitial prominence may reflect infection or edema. Right basilar atelectasis/infiltrate. Bilateral hilar prominence. Please note that chest x-ray has limited sensitivity for the detection of pulmonary masses. PLEURA: No significant pleural effusion identified. No definite pneumothorax . CARDIOVASCULAR: Cardiomegaly. Atherosclerotic calcifications. OSSEOUS STRUCTURES: Degenerative changes. VISUALIZED UPPER ABDOMEN: Unremarkable. OTHER FINDINGS: None. IMPRESSION: Right-sided PICC extends to the expected location of the SVC. Diffuse interstitial prominence may reflect infection or edema. Right basilar atelectasis/infiltrate. Bilateral hilar prominence. Cardiomegaly.
[2017-07-07] MEDS ORDERED: Vancomycin 1 gm/NS 200 ml 1 GM/200 ML BAG IVPB ONE (17:00)
[2017-07-07] MEDS: Meropenem 500 MG in Sodium Chloride 0.9% 100 ML IVPB SCH ×2 (18:00→23:49)
--- NOTE | 2017-07-07 19:59 | PN ---
DATE: SUBJECTIVE: This is a 77-year-old female with recent admission for congestive heart failure and supervening rapid atrial fibrillation and is being followed closely here in the ICU for hemodynamic monitoring and management. She remains clinically and biochemically euthyroid at this time and the latest thyroid study showed a T4 of 4.02 with a TSH of 6.61 and a free T4 of 0.61. LABORATORY DATA: Her latest chemistry showed a BUN of 23, sodium 132, potassium 4.5, chloride 95, CO2 30, glucose 86, and creatinine 0.6. PLAN: At this time, we will actually hold the Tapazole to allow for dose of proliferation as she is developing now subclinical hypothyroidism as noted. We will obtain serial thyroid studies and titrate her regimen accordingly. We will follow and advise accordingly. Marely Raymundo MD
[2017-07-08] MEDS: Digoxin 500 mcg/2ml (0.5 mg/2ml) Inj IVP SCH ×2 (01:39→07:41)
[2017-07-08] MEDS: Albuterol-Ipratrop 3 mg / 0.5 (3 ml) UD INH SCH ×2 (03:01→08:42)
[2017-07-08] MEDS: metroNIDAZOLE IV 500 mg/100 ml 500 MG/100 ML BAG IVPB SCH (05:02)
[2017-07-08] MEDS: Meropenem 500 MG in Sodium Chloride 0.9% 100 ML IVPB SCH ×2 (05:03→12:12)
[2017-07-08 07:41] VITALS: PULSE 122
--- NOTE | 2017-07-08 09:10 | CP.PCM.PN ---
Subjective - Date & Time of Evaluation Date of Evaluation: 07/08/17 Time of Evaluation: 09:09 - Subjective Subjective: Pt lethargic and sleeping; Low BP and AF w/ RVR Objective - Vital Signs/Intake and Output Vital Signs (last 24 hours): Temp Pulse Resp BP Pulse Ox 99.4 F 131 H 24 126/93 H 100 07/08/17 08:00 07/08/17 08:48 07/08/17 08:00 07/08/17 08:00 07/08/17 08:00 Intake and Output: 07/08/17 07/08/17 06:59 18:59 Intake Total 600 Output Total 300 Balance 300 - Medications Medications: Current Medications Acetaminophen (Tylenol 325mg Tab) 650 mg PO Q4 PRN PRN Reason: blood transfusion Last Admin: 07/07/17 14:45 Dose: 650 mg Albuterol/Ipratropium (Duoneb 3 Mg/0.5 Mg (3 Ml) Ud) 3 ml INH RQ6 COUNTS INCLUDE 234 BEDS AT [facility] Last Admin: 07/08/17 08:42 Dose: 3 ml Apixaban (Eliquis) 5 mg PO BID COUNTS INCLUDE 234 BEDS AT [facility] Last Admin: 06/24/17 11:18 Dose: 5 mg Aspirin (Aspirin Chewable) 81 mg PO DAILY COUNTS INCLUDE 234 BEDS AT [facility] Last Admin: 06/24/17 11:18 Dose: 81 mg Digoxin (Lanoxin) 0.125 mg IVP DAILY@1800 COUNTS INCLUDE 234 BEDS AT [facility] Stop: 07/12/17 18:01 Diltiazem HCl (Cardizem) 30 mg PO Q6H COUNTS INCLUDE 234 BEDS AT [facility] Last Admin: 07/08/17 08:35 Dose: 30 mg Furosemide (Lasix) 40 mg IVP Q12 COUNTS INCLUDE 234 BEDS AT [facility] Last Admin: 07/07/17 23:47 Dose: Not Given Metronidazole (Flagyl) 500 mg in 100 mls @ 100 mls/hr IVPB Q8 COUNTS INCLUDE 234 BEDS AT [facility] Last Admin: 07/08/17 05:02 Dose: 100 mls/hr Fluconazole (Diflucan Iv 200 Mg/100 Ml Ns) 100 mls @ 100 mls/hr IVPB DAILY COUNTS INCLUDE 234 BEDS AT [facility] Last Admin: 07/07/17 10:02 Dose: 100 mls/hr Meropenem 500 mg/ Sodium (Chloride) 100 mls @ 100 mls/hr IVPB Q6 COUNTS INCLUDE 234 BEDS AT [facility] Last Admin: 07/08/17 05:03 Dose: 100 mls/hr Methimazole (Tapazole) 5 mg PO DAILY COUNTS INCLUDE 234 BEDS AT [facility] Last Admin: 07/07/17 10:04 Dose: 5 mg Multivitamins (Hexavitamin) 1 tab PO DAILY COUNTS INCLUDE 234 BEDS AT [facility] Last Admin: 07/07/17 10:00 Dose: 1 tab Vancomycin HCl (Vancocin (Oral Or Rectal Use)) 250 mg PO QID COUNTS INCLUDE 234 BEDS AT [facility] Last Admin: 07/07/17 22:20 Dose: 250 mg - Labs Labs: 07/07/17 06:30 07/07/17 06:31 PT 18.2 SECONDS (9.7-12.2) H 06/27/17 11:09 INR 1.6 06/27/17 11:09 APTT 34 SECONDS (21-34) 06/15/17 13:26 - Constitutional Appears: No Acute Distress - Eye Exam Eye Exam: Normal appearance - ENT Exam ENT Exam: Mucous Membranes Moist - Neck Exam Neck Exam: Full ROM. absent: Lymphadenopathy, Thyromegaly - Respiratory Exam Respiratory Exam: Rales. absent: Decreased Breath Sounds, Rhonchi, Wheezes (L base rales) - Cardiovascular Exam Cardiovascular Exam: Irregular Rhythm, +S1, +S2, Murmur. absent: Gallop - GI/Abdominal Exam GI & Abdominal Exam: Soft. absent: Guarding, Rigid, Tenderness - Extremities Exam Extremities Exam: Pedal Edema. absent: Joint Swelling, Normal Capillary Refill ((+) anasarcous) Assessment and Plan - Assessment and Plan (Free Text) Assessment: Sepsis syndrome w/ Hypotewnsion; AF w/ RVr Myelodysplasia; PE on 03/2017 Cont care/ still awaiting for family to decide on DNR
[2017-07-08] MEDS: Fluconazole IV 200mg/100 ml NS 100 ML IVPB SCH (09:30)
[2017-07-08] MEDS: Vancomycin 125 MG/5 ML SOLN (ORAL/RECTAL) PO SCH (09:32)
[2017-07-08] MEDS: Multiple Vitamins Tab PO SCH (09:32)
[2017-07-08] MEDS ORDERED: Calcium Chloride 1000 mg/10 ml Syringe IV ONE (10:46)
[2017-07-08] MEDS ORDERED: Sodium Bicarbonate (8.4%) 50 Meq Syringe ONE (10:46)
[2017-07-08] MEDS ORDERED: Magnesium Sulfate 1 gm/100 mL D5W IVPB ONE (10:46)
[2017-07-08] MEDS ORDERED: Amiodarone 150mg/3 ml vial ONE (10:46)
--- NOTE | 2017-07-08 11:00 | PCM.ANES ---
Anesthesia Emergent Intubation - Diagnosis Working Diagnosis:: cardiac arrest - Consult Reason for Consult:: emergent endotracheal intubation - Intubation Attempts Previous Number of Intubation Attempts:: 0 - Pre-Intubation Vital Signs Oxygen Delivery Method: Ambu-Bag Level Of Consciousness: Comatose/Unresponsive - Airway Management Oropharyngeal Area Suctioned: Yes (vomitus in oropharynx) PreOxygenation: 1 (via ambubag) Inhalation: No Cricoid Pressure: Yes Possible Aspiration: Yes (patient vomitting prior to intubation attempt) - Method of Intubation Intubation Method: Oral ETT ETT Size: 7.5 Lipline@: 22cm Easy: Yes Atramatic: Yes - Intubation Devices Jessica Blade Size Used: 4 Zoie Forcepts Used: No [place] Scope Used: No Fiber Optic Scope: No - Placement Confirmation Breath Sounds Present & Equal Bilaterally: Yes Gurgling Sounds Not Audible at Epigastrum: Yes Positive EtCO2: Yes Portable CXR: Yes
[2017-07-08 11:40] LABS: HEMOGLOBIN 6.8 g/dL (11.0-16.0); MEAN CORPUSCULAR HEMOGLOBIN 28.8 pg (27.0-31.0); MEAN CORPUSCULAR HGB CONC 32.9 g/dL (33.0-37.0); MEAN PLATELET VOLUME 7.5 fL (7.2-11.7); RBC 2.35 Mil/uL (3.80-5.20); RED CELL DISTRIBUTION WIDTH 16.7 % (11.5-14.5); WHITE BLOOD COUNT 13.7 K/uL (4.8-10.8)
[2017-07-08 11:47] LABS: INR 4.1
[2017-07-08 11:50] LABS: PROTHROMBIN TIME 49.6 SECONDS (9.7-12.2)
--- NOTE | 2017-07-08 11:54 | CP.PCM.PN ---
Subjective - Date & Time of Evaluation Date of Evaluation: 07/08/17 Time of Evaluation: 08:00 - Subjective Subjective: events noted hx of severe cad, chf , mds, recurrent pneumonia and c diff grave prognosis dr sosa on consult Objective - Vital Signs/Intake and Output Vital Signs (last 24 hours): Temp Pulse Resp BP Pulse Ox 99.4 F 97 H 16 60/27 L 100 07/08/17 08:00 07/08/17 11:45 07/08/17 11:45 07/08/17 11:45 07/08/17 09:00 Intake and Output: 07/08/17 07/08/17 06:59 18:59 Intake Total 600 220 Output Total 300 Balance 300 220 - Medications Medications: Current Medications Acetaminophen (Tylenol 325mg Tab) 650 mg PO Q4 PRN PRN Reason: blood transfusion Last Admin: 07/07/17 14:45 Dose: 650 mg Albuterol/Ipratropium (Duoneb 3 Mg/0.5 Mg (3 Ml) Ud) 3 ml INH RQ6 [facility] Last Admin: 07/08/17 08:42 Dose: 3 ml Apixaban (Eliquis) 5 mg PO BID [facility] Last Admin: 06/24/17 11:18 Dose: 5 mg Aspirin (Aspirin Chewable) 81 mg PO DAILY [facility] Last Admin: 06/24/17 11:18 Dose: 81 mg Digoxin (Lanoxin) 0.125 mg IVP DAILY@1800 [facility] Stop: 07/12/17 18:01 Diltiazem HCl (Cardizem) 30 mg PO Q6H [facility] Last Admin: 07/08/17 08:35 Dose: 30 mg Furosemide (Lasix) 40 mg IVP Q12 [facility] Last Admin: 07/08/17 09:32 Dose: 40 mg Metronidazole (Flagyl) 500 mg in 100 mls @ 100 mls/hr IVPB Q8 [facility] Last Admin: 07/08/17 05:02 Dose: 100 mls/hr Fluconazole (Diflucan Iv 200 Mg/100 Ml Ns) 100 mls @ 100 mls/hr IVPB DAILY [facility] Last Admin: 07/08/17 09:30 Dose: 100 mls/hr Meropenem 500 mg/ Sodium (Chloride) 100 mls @ 100 mls/hr IVPB Q6 [facility] Last Admin: 07/08/17 05:03 Dose: 100 mls/hr Norepinephrine Bitartrate 4 mg (/ Sodium Chloride) 254 mls @ 15.24 mls/hr IV .[id number] PRN; Protocol; 4 MCG/MIN PRN Reason: TITRATE PER MD ORDER Last Admin: 07/08/17 11:45 Dose: 10 mcg/min, 38.1 mls/hr Methimazole (Tapazole) 5 mg PO DAILY [facility] Last Admin: 07/07/17 10:04 Dose: 5 mg Multivitamins (Hexavitamin) 1 tab PO DAILY [facility] Last Admin: 07/08/17 09:32 Dose: 1 tab Vancomycin HCl (Vancocin (Oral Or Rectal Use)) 250 mg PO QID [facility] Last Admin: 07/08/17 09:32 Dose: 250 mg - Labs Labs: 07/07/17 06:30 07/07/17 06:31 PT 49.6 SECONDS (9.7-12.2) H* 07/08/17 11:34 INR 4.1 07/08/17 11:34 APTT 79 SECONDS (21-34) H 07/08/17 11:34 - Constitutional Appears: Confused, Cachectic, Chronically Ill - Head Exam Head Exam: NORMOCEPHALIC - Eye Exam Eye Exam: absent: Scleral icterus - ENT Exam ENT Exam: Mucous Membranes Dry - Neck Exam Neck Exam: absent: Lymphadenopathy, Thyromegaly - Respiratory Exam Respiratory Exam: Decreased Breath Sounds, Prolonged Expiratory Phase, Rales, Rhonchi - Cardiovascular Exam Cardiovascular Exam: REGULAR RHYTHM - GI/Abdominal Exam GI & Abdominal Exam: Distended, Soft. absent: Tenderness - Rectal Exam Rectal Exam: Deferred - Exam Exam: NORMAL INSPECTION - Extremities Exam Extremities Exam: absent: Pedal Edema - Back Exam Back Exam: absent: CVA tenderness (L), CVA tenderness (R) - Neurological Exam Neurological Exam: Altered, CN II-XII Intact Neuro motor strength exam: Left Upper Extremity: 3, Right Upper Extremity: 3, Left Lower Extremity: 3, Right Lower Extremity: 3 - Psychiatric Exam Psychiatric exam: Depressed - Skin Skin Exam: Dry, Intact Assessment and Plan (1) CHF (congestive heart failure) Status: Acute (2) Rapid atrial fibrillation Status: Acute (3) CAD (coronary artery disease) Status: Acute (4) Cough Status: Acute (5) Dehydration Status: Acute (6) Hyponatremia Status: Acute (7) Lower respiratory infection Status: Acute (8) Myelodysplasia (myelodysplastic syndrome) Status: Acute - Assessment and Plan (Free Text) Assessment: acute exac copd r/o pneumonia r/o sepsis MDS resp failure recc cardio re-eval DR Sosa supportive care consider palliative care options
[2017-07-08 11:58] LABS: ALB/GLOB RATIO 0.7 (1.0-2.1); ALBUMIN 1.9 g/dL (3.5-5.0); ALT/SGPT 22 U/L (9-52); AST/SGOT 37 U/L (14-36); BLOOD UREA NITROGEN 23 mg/dL (7-17); CALCIUM 10.1 mg/dl (8.6-10.4); GFR AFRICAN-AMERICAN > 60; GFR NON-AFRICAN AMERICAN > 60; MAGNESIUM 3.2 mg/dL (1.6-2.3)
[2017-07-08 12:02] LABS: MEAN CELL VOLUME 87.5 fL (81.0-99.0)
[2017-07-08 12:03] LABS: PLATELET COUNT 26 K/uL (130-400)
[2017-07-08 12:34] LABS: LYMPH # 0.8 K/uL (1.0-4.3)
[2017-07-08 12:38] LABS: ANISOCYTOSIS SLIGHT; BANDS 67 % (0-2); EOSINOPHIL 1 % (0-4); LYMPHOCYTE 11 % (20-40); MONOCYTE 5 % (0-10); NEUTROPHIL 15 % (50-75); NUCLEATED RED BLOOD CELL 2 % (0-0); PLATELET ESTIMATE DECREASED (NORMAL); REACTIVE LYMPHOCYTES 1 % (0-0); TOTAL CELLS COUNTED 100
[2017-07-08 12:39] LABS: HYPOCHROMIC MODERATE; POLYCHROMIC SLIGHT; SCHISTOCYTES SLIGHT; TARGET CELLS SLIGHT
[2017-07-08 12:40] LABS: BURR CELLS SLIGHT; OVALOCYTES SLIGHT
[2017-07-08 14:22] VITALS: RESP 14; TEMP 102.4
[2017-07-08 14:29] VITALS: BP 66/39; PULSE 74; O2SAT 85
--- NOTE | 2017-07-08 15:02 | CP.PCM.PRO ---
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 She was then made DNR by her daughter and and was declared at 1436.
[2017-07-08] MEDS ORDERED: Digoxin 500 mcg/2ml (0.5 mg/2ml) Inj IVP SCH (18:00)
--- NOTE | 2017-07-09 07:05 | PN ---
DATE: ENDOCRINOLOGY FOLLOWUP NOTE. LOCATION: ICU room 8. SUBJECTIVE: This is a 77-year-old female with recent admission for congestive heart failure with supervening rapid atrial fibrillation and is now being followed closely in the ICU with hemodynamic monitoring and management. She remains clinically and biochemically euthyroid at this time and the latest chemistry showed the BUN of 23, sodium 136, potassium 3.8, chloride 102, CO2 23, glucose 113, creatinine _0.9 . Her latest thyroid study showed a T4 of 4.02 with free T4 normal _ and TSH of 6.61. PLAN: So at this time, we will hold the Tapazole medication for now and obtain serial thyroid studies. We will obtain serial chemistries and supplement accordingly as needed. We will follow. Marely Raymundo MD MTDDione
--- NOTE | 2017-07-09 08:52 | CP.PCM.PN ---
Subjective - Date & Time of Evaluation Date of Evaluation: 07/08/17 Time of Evaluation: 08:05 - Subjective Subjective: sleeping during rounds not doing well still waiting for family's decision re: DNR Objective - Vital Signs/Intake and Output Vital Signs (last 24 hours): Temp Pulse Resp BP Pulse Ox 102.4 F H 74 14 66/39 L 85 L 07/08/17 12:00 07/08/17 14:00 07/08/17 14:00 07/08/17 14:00 07/08/17 14:00 - Labs Labs: 07/08/17 11:34 07/08/17 11:34 PT 49.6 SECONDS (9.7-12.2) H* 07/08/17 11:34 INR 4.1 07/08/17 11:34 APTT 79 SECONDS (21-34) H 07/08/17 11:34 - Constitutional Appears: Toxic - Head Exam Head Exam: ATRAUMATIC - Eye Exam Eye Exam: absent: Scleral icterus - Neck Exam Neck Exam: Full ROM - Respiratory Exam Respiratory Exam: Rhonchi - Cardiovascular Exam Cardiovascular Exam: Tachycardia - GI/Abdominal Exam GI & Abdominal Exam: Soft - Extremities Exam Extremities Exam: Pedal Edema. absent: Calf Tenderness Assessment and Plan - Assessment and Plan (Free Text) Assessment: Sepsis CAD MDS Afib T2dm Plan: Poor prognosis Cont present care Case discussed w/ nurse Will give digs to control heart rate.
--- NOTE | 2017-07-09 08:58 | CP.PCM.PN ---
Subjective - Date & Time of Evaluation Date of Evaluation: 07/07/17 Time of Evaluation: 09:05 - Subjective Subjective: SOB anasarca Case discussed w/ Dr Hernandez Objective - Vital Signs/Intake and Output Vital Signs (last 24 hours): Temp Pulse Resp BP Pulse Ox 102.4 F H 74 14 66/39 L 85 L 07/08/17 12:00 07/08/17 14:00 07/08/17 14:00 07/08/17 14:00 07/08/17 14:00 - Labs Labs: 07/08/17 11:34 07/08/17 11:34 PT 49.6 SECONDS (9.7-12.2) H* 07/08/17 11:34 INR 4.1 07/08/17 11:34 APTT 79 SECONDS (21-34) H 07/08/17 11:34 - Constitutional Appears: Chronically Ill - Head Exam Head Exam: NORMAL INSPECTION - Eye Exam Eye Exam: absent: Scleral icterus - Respiratory Exam Respiratory Exam: absent: Rhonchi - Cardiovascular Exam Cardiovascular Exam: Tachycardia - GI/Abdominal Exam GI & Abdominal Exam: Soft - Extremities Exam Additional comments: anasarcous - Neurological Exam Neurological Exam: Altered Assessment and Plan - Assessment and Plan (Free Text) Assessment: Sepsis Cdif colitis CHF CAD Afib MDS Plan: POOR PROGNOSIS Cont present care Had a long discussion w/ Daughter Afua regarding pt's condition
--- NOTE | 2017-07-09 09:04 | CP.PCM.PN ---
Subjective - Date & Time of Evaluation Date of Evaluation: 07/06/17 Time of Evaluation: 08:15 - Subjective Subjective: Pt looks clinically better today Objective - Vital Signs/Intake and Output Vital Signs (last 24 hours): Temp Pulse Resp BP Pulse Ox 102.4 F H 74 14 66/39 L 85 L 07/08/17 12:00 07/08/17 14:00 07/08/17 14:00 07/08/17 14:00 07/08/17 14:00 - Labs Labs: 07/08/17 11:34 07/08/17 11:34 PT 49.6 SECONDS (9.7-12.2) H* 07/08/17 11:34 INR 4.1 07/08/17 11:34 APTT 79 SECONDS (21-34) H 07/08/17 11:34 - Constitutional Appears: Non-toxic - Eye Exam Eye Exam: absent: Scleral icterus - Neck Exam Neck Exam: Full ROM - Respiratory Exam Respiratory Exam: Clear to Ausculation Bilateral - Cardiovascular Exam Cardiovascular Exam: Bradycardia - Extremities Exam Additional comments: anasarcous - Neurological Exam Neurological Exam: Alert Assessment and Plan - Assessment and Plan (Free Text) Assessment: MDS Afib CAD Cdif colitis Sepsis Plan: Cont present care Case discussed w/ Dr Hernandez alf prognosis POOR
--- NOTE | 2017-07-09 17:50 | CP.PCM.PN ---
Subjective - Date & Time of Evaluation Date of Evaluation: 07/04/17 Time of Evaluation: 10:15 - Subjective Subjective: more alert less sob weak Objective - Vital Signs/Intake and Output Vital Signs (last 24 hours): Temp Pulse Resp BP Pulse Ox 102.4 F H 74 14 66/39 L 85 L 07/08/17 12:00 07/08/17 14:00 07/08/17 14:00 07/08/17 14:00 07/08/17 14:00 - Labs Labs: 07/08/17 11:34 07/08/17 11:34 PT 49.6 SECONDS (9.7-12.2) H* 07/08/17 11:34 INR 4.1 07/08/17 11:34 APTT 79 SECONDS (21-34) H 07/08/17 11:34 - Constitutional Appears: Chronically Ill - Head Exam Head Exam: NORMAL INSPECTION - Eye Exam Eye Exam: absent: Scleral icterus - ENT Exam ENT Exam: Mucous Membranes Moist - Neck Exam Neck Exam: Full ROM - Respiratory Exam Respiratory Exam: absent: Decreased Breath Sounds - Cardiovascular Exam Cardiovascular Exam: Irregular Rhythm - GI/Abdominal Exam GI & Abdominal Exam: Soft - Extremities Exam Additional comments: +anasarcous Assessment and Plan - Assessment and Plan (Free Text) Assessment: Sepsis CHF CAD Afib MDS Cdif colitis Plan: Poor prognosis Case discussed w/ daughter - aware of poor prognosis Cont present abtx as per ID
--- NOTE | 2017-07-09 17:57 | CP.PCM.PN ---
Subjective - Date & Time of Evaluation Date of Evaluation: 07/05/17 Time of Evaluation: 07:30 - Subjective Subjective: deteriorating high risk for any interventional procedure sob edematous Objective - Vital Signs/Intake and Output Vital Signs (last 24 hours): Temp Pulse Resp BP Pulse Ox 102.4 F H 74 14 66/39 L 85 L 07/08/17 12:00 07/08/17 14:00 07/08/17 14:00 07/08/17 14:00 07/08/17 14:00 - Labs Labs: 07/08/17 11:34 07/08/17 11:34 PT 49.6 SECONDS (9.7-12.2) H* 07/08/17 11:34 INR 4.1 07/08/17 11:34 APTT 79 SECONDS (21-34) H 07/08/17 11:34 - Constitutional Appears: Chronically Ill - Eye Exam Eye Exam: absent: Scleral icterus - Neck Exam Neck Exam: absent: Full ROM - Respiratory Exam Respiratory Exam: Rhonchi - GI/Abdominal Exam GI & Abdominal Exam: Soft - Extremities Exam Extremities Exam: Pedal Edema Assessment and Plan - Assessment and Plan (Free Text) Assessment: Sepsis MDS CAD CHF Afib Plan: Cont abtx as ID POOR PROGNOSIS Supportive treatment Case discussed w/ daughter Gisella
--- NOTE | 2017-07-15 08:33 | CP.PCM.DIS ---
Provider - Provider Date of Admission: 06/16/17 10:32 CC: Short of breath 77 y/o female with HTN, MDS and CAD. Patient also w/ recent Pneumonia, C diff colitis and pulm embolism. Patient had (+) CE and had cath. She was sent home and became SOB that night. She was seen in ER & readmitted for COPD, Exac w. prob Pneumonia. Attending physician: Deion Marie MD Time Spent in preparation of Discharge (in minutes): 20 Hospital Course - Lab Results Lab Results: Micro Results 07/07/17 Unknown Blood-Thru Central Line Blood Culture - Final NO GROWTH AFTER 5 DAYS 07/07/17 Unknown Blood-Thru Central Line Gram Stain - Final TEST NOT PERFORMED 07/07/17 Unknown Blood-Thru Central Line Blood Culture - Final NO GROWTH AFTER 5 DAYS 07/07/17 Unknown Blood-Thru Central Line Gram Stain - Final TEST NOT PERFORMED 07/08/17 05:05 Sputum Gram Stain - Final 07/08/17 05:05 Sputum Sputum Culture - Final NORMAL ORAL ASHLEY 07/07/17 14:57 Urine,Clean Catch Urine Culture - Final No Growth (<1,000 CFU/ML) 07/01/17 14:00 Blood-Venous Blood Culture - Final NO GROWTH AFTER 5 DAYS 07/01/17 14:00 Blood-Venous Gram Stain - Final TEST NOT PERFORMED 07/01/17 13:30 Blood-Venous Blood Culture - Final NO GROWTH AFTER 5 DAYS 07/01/17 13:30 Blood-Venous Gram Stain - Final TEST NOT PERFORMED 06/30/17 Unknown Naris MRSA Culture - Final MRSA NOT DETECTED 06/27/17 10:52 Blood-Venous Blood Culture - Final NO GROWTH AFTER 5 DAYS 06/27/17 10:52 Blood-Venous Gram Stain - Final TEST NOT PERFORMED 06/27/17 10:52 Blood-Venous Blood Culture - Final NO GROWTH AFTER 5 DAYS 06/27/17 10:52 Blood-Venous Gram Stain - Final TEST NOT PERFORMED 06/26/17 10:27 Blood Transfusion Bag - Final 06/26/17 10:27 Blood Transfusion Bag - Final NO GROWTH AFTER 5 DAYS 06/24/17 14:58 Blood-Venous Blood Culture - Final NO GROWTH AFTER 5 DAYS 06/24/17 14:58 Blood-Venous Gram Stain - Final TEST NOT PERFORMED 06/24/17 15:58 Blood-Venous Blood Culture - Final NO GROWTH AFTER 5 DAYS 06/24/17 15:58 Blood-Venous Gram Stain - Final TEST NOT PERFORMED 06/22/17 11:45 Blood-Venous Blood Culture - Final NO GROWTH AFTER 5 DAYS 06/22/17 11:45 Blood-Venous Gram Stain - Final TEST NOT PERFORMED 06/22/17 11:30 Blood-Venous Blood Culture - Final NO GROWTH AFTER 5 DAYS 06/22/17 11:30 Blood-Venous Gram Stain - Final TEST NOT PERFORMED 06/24/17 15:47 Urine,Clean Catch Urine Culture - Final Gram Positive Cocci 06/22/17 20:57 Urine,Clean Catch Urine Culture - Final 50-100,000 CFU/ML. MULTIPLE SPECIES. SUGGEST REPEAT SPECIMEM. 06/22/17 20:57 Sputum Gram Stain - Final 06/22/17 20:57 Sputum Sputum Culture - Final NORMAL ORAL ASHLEY 06/15/17 12:44 Blood Blood Culture - Final NO GROWTH AFTER 5 DAYS 06/15/17 12:44 Blood Gram Stain - Final TEST NOT PERFORMED 06/15/17 12:44 Blood Blood Culture - Final NO GROWTH AFTER 5 DAYS 06/15/17 12:44 Blood Gram Stain - Final TEST NOT PERFORMED 06/15/17 12:44 Blood Blood Culture - Final NO GROWTH AFTER 5 DAYS 06/15/17 12:44 Blood Gram Stain - Final TEST NOT PERFORMED 06/15/17 12:44 Blood Blood Culture - Final NO GROWTH AFTER 5 DAYS 06/15/17 12:44 Blood Gram Stain - Final TEST NOT PERFORMED 06/15/17 17:56 Urine Urine Culture - Final No Growth (<1,000 CFU/ML) Most Recent Lab Values WBC 13.7 K/uL (4.8-10.8) H 07/08/17 11:34 RBC 2.35 Mil/uL (3.80-5.20) L 07/08/17 11:34 Hgb 6.8 g/dL (11.0-16.0) L D 07/08/17 11:34 Hct 20.6 % (34.0-47.0) L 07/08/17 11:34 MCV 87.5 fL (81.0-99.0) D 07/08/17 11:34 MCH 28.8 pg (27.0-31.0) 07/08/17 11:34 MCHC 32.9 g/dL (33.0-37.0) L 07/08/17 11:34 RDW 16.7 % (11.5-14.5) H 07/08/17 11:34 Plt Count 26 K/uL (130-400) L* D 07/08/17 11:34 MPV 7.5 fL (7.2-11.7) 07/08/17 11:34 Neut % (Auto) 87.0 % (50.0-75.0) H 07/08/17 11:34 Lymph % (Auto) 6.0 % (20.0-40.0) L 07/08/17 11:34 Cotton % (Auto) 7.0 % (0.0-10.0) 07/08/17 11:34 Eos % (Auto) 0.0 % (0.0-4.0) 07/08/17 11:34 Baso % (Auto) 0.0 % (0.0-2.0) 07/08/17 11:34 Neut # (Auto) 12.0 K/uL (1.8-7.0) H 07/08/17 11:34 Lymph # (Auto) 0.8 K/uL (1.0-4.3) L 07/08/17 11:34 Cotton # (Auto) 1.0 K/uL (0.0-0.8) H 07/08/17 11:34 Eos # (Auto) 0.0 K/uL (0.0-0.7) 07/08/17 11:34 Baso # (Auto) 0.0 K/uL (0.0-0.2) 07/08/17 11:34 Neutrophils % (Manual) 15 % (50-75) L 07/08/17 11:34 Band Neutrophils % 67 % (0-2) H* 07/08/17 11:34 Lymphocytes % (Manual) 11 % (20-40) L 07/08/17 11:34 Reactive Lymphs % 1 % (0-0) H 07/08/17 11:34 Monocytes % (Manual) 5 % (0-10) 07/08/17 11:34 Eosinophils % (Manual) 1 % (0-4) 07/08/17 11:34 Basophils % (Manual) 1 % (0-2) 06/28/17 08:13 Metamyelocytes % 1 % (0-0) H 07/01/17 06:17 Myelocytes % 1 % (0-0) H 07/03/17 06:07 Nucleated RBC % 2 % (0-0) H 07/08/17 11:34 Differential Comment 06/17/17 07:10 Toxic Granulation Present 07/07/17 06:30 Dohle Bodies Present 06/27/17 06:30 Platelet Estimate Decreased (NORMAL) L 07/08/17 11:34 Large Platelets Present 07/06/17 06:33 Giant Platelets Present 07/06/17 06:33 Polychromasia Slight 07/08/17 11:34 Hypochromasia (manual) Moderate 07/08/17 11:34 Poikilocytosis (manual Slight 07/07/17 06:30 Basophilic Stippling Slight 07/06/17 06:33 Anisocytosis (manual) Slight 07/08/17 11:34 Microcytosis (manual) Slight 06/29/17 11:28 Macrocytosis (manual) Slight 06/29/17 11:28 Target Cells Slight 07/08/17 11:34 Tear Drop Cells Slight 07/04/17 06:30 Ovalocytes Slight 07/08/17 11:34 [place] Bodies Slight 06/29/17 11:28 Eli Cells Slight 07/08/17 11:34 Acanthocytes (Spur) Slight 07/03/17 06:07 Schistocytes Slight 07/08/17 11:34 PT 49.6 SECONDS (9.7-12.2) H* 07/08/17 11:34 INR 4.1 07/08/17 11:34 APTT 79 SECONDS (21-34) H 07/08/17 11:34 Puncture Site Lb 06/30/17 13:10 pCO2 31 mm/Hg (35-45) L 06/30/17 13:10 pO2 37 mm/Hg (30-55) 07/01/17 23:50 HCO3 27.3 mmol/L (21-28) 06/30/17 13:10 ABG pH 7.52 (7.35-7.45) H 06/30/17 13:10 ABG Total CO2 26.3 mmol/L (22-28) 06/30/17 13:10 ABG O2 Saturation 99.6 % (95-98) H 06/30/17 13:10 ABG Base Excess 3.0 mmol/L (-2.0-3.0) 06/30/17 13:10 ABG Hemoglobin 9.8 g/dL (11.7-17.4) L 06/30/17 11:40 ABG Carboxyhemoglobin 0.7 % (0.5-1.5) 06/30/17 11:40 POC ABG HHb (Measured) 68.4 % (0.0-5.0) H 06/30/17 11:40 ABG Methemoglobin 1.0 % (0.0-3.0) 06/30/17 11:40 Fabrice Test Na 06/30/17 13:10 ABG Potassium 3.6 mmol/L (3.6-5.2) 06/30/17 13:10 VBG pH 7.37 (7.32-7.43) 07/01/17 23:50 VBG pCO2 37 mmHg (40-60) L 07/01/17 23:50 VBG HCO3 21.5 mmol/L 07/01/17 23:50 VBG Total CO2 22.5 mmol/L (22-28) 07/01/17 23:50 VBG O2 Sat (Calc) 74.1 % (40-65) H 07/01/17 23:50 VBG Base Excess -3.4 mmol/L (0.0-2.0) L 07/01/17 23:50 VBG Potassium 3.3 mmol/L (3.6-5.2) L 07/01/17 23:50 A-a O2 Difference 204.0 mm/Hg 06/30/17 13:10 Respiratory Index 0.7 06/30/17 13:10 Hgb O2 Saturation 29.9 % (95.0-98.0) L 06/30/17 11:40 Sodium 133.0 mmol/l (132-148) 07/01/17 23:50 Chloride 100.0 mmol/L (98-107) 07/01/17 23:50 Glucose 60 mg/dl (65-105) L 07/01/17 23:50 Lactate 4.7 mmol/L (0.7-2.1) H* 07/01/17 23:50 Liter Flow 2.0 06/27/17 10:16 FiO2 75.0 % 06/30/17 13:10 Inspiratory BiPAP 12 06/30/17 13:10 Expiratory BiPAP 6 06/30/17 13:10 Crit Value Called To Pablo cartagena/rn 07/01/17 23:50 Crit Value Called By Bravo robert/rt 07/01/17 23:50 Crit Value Read Back Y 07/01/17 23:50 Blood Gas Notified Time 0167 07/01/17 23:50 Sodium 143 mmol/L (132-148) 07/08/17 11:34 Potassium 3.8 mmol/L (3.6-5.2) 07/08/17 11:34 Chloride 102 mmol/L (98-107) 07/08/17 11:34 Carbon Dioxide 23 mmol/L (22-30) 07/08/17 11:34 Anion Gap 21 (10-20) H 07/08/17 11:34 BUN 23 mg/dL (7-17) H 07/08/17 11:34 Creatinine 0.7 mg/dL (0.7-1.2) 07/08/17 11:34 Est GFR ( Amer) > 60 07/08/17 11:34 Est GFR (Non-Af Amer) > 60 07/08/17 11:34 POC Glucose (mg/dL) 80 mg/dL (65-110) 07/07/17 15:19 Random Glucose 113 mg/dL (65-105) H 07/08/17 11:34 Lactic Acid 5.1 mmol/L (0.7-2.1) H* 07/02/17 05:01 Calcium 10.1 mg/dl (8.6-10.4) 07/08/17 11:34 Phosphorus 6.3 mg/dL (2.5-4.5) H 07/08/17 11:34 Magnesium 3.2 mg/dL (1.6-2.3) H 07/08/17 11:34 Total Bilirubin 0.8 mg/dL (0.2-1.3) 07/08/17 11:34 AST 37 U/L (14-36) H D 07/08/17 11:34 ALT 22 U/L (9-52) 07/08/17 11:34 Alkaline Phosphatase 135 U/L (38-126) H 07/08/17 11:34 Total Creatine Kinase < 20 U/L (30-135) L 06/30/17 03:52 CK-MB (Mass) 0.39 ng/mL (0.0-3.38) 06/30/17 03:52 Troponin I < 0.0120 ng/mL (0.00-0.120) 06/30/17 03:52 NT-Pro-B Natriuret Pep 5230 pg/mL (0-900) H 06/30/17 13:14 Total Protein 4.5 g/dL (6.3-8.3) L 07/08/17 11:34 Albumin 1.9 g/dL (3.5-5.0) L D 07/08/17 11:34 Globulin 2.6 gm/dL (2.2-3.9) 07/08/17 11:34 Albumin/Globulin Ratio 0.7 (1.0-2.1) L 07/08/17 11:34 Procalcitonin 0.72 NG/ML (0.19-0.49) H 06/27/17 10:10 Free T4 0.61 ng/dL (0.78-2.19) L 07/07/17 06:31 Thyroxine (T4) 4.02 ug/dL (5.5-11.0) L 07/07/17 06:31 TSH 3rd Generation 6.61 mIU/L (0.46-4.68) H 07/07/17 06:31 Thyroid Stim Immunoglob <89 % baseline (<140) 07/01/17 07:27 Cortisol AM Sample 18.9 ug/dL (4.46-22.7) 07/01/17 06:16 ACTH 52 pg/mL (6-50) H 07/01/17 06:17 Arterial Blood Potassium 3.6 mmol/L (3.6-5.2) 06/30/17 13:10 Venous Blood Potassium 3.3 mmol/L (3.6-5.2) L 07/01/17 23:50 Urine Color Jayda (YELLOW) 06/27/17 12:00 Urine Clarity Hazy (Clear) 06/27/17 12:00 Urine pH 5.0 (5.0-8.0) 06/27/17 12:00 Ur Specific [place] 1.032 (1.003-1.030) H 06/27/17 12:00 Urine Protein 1+ mg/dL (NEGATIVE) H 06/27/17 12:00 Urine Glucose (UA) Normal mg/dL (Normal) 06/27/17 12:00 Urine Ketones Negative mg/dL (NEGATIVE) 06/27/17 12:00 Urine Blood Negative (NEGATIVE) 06/27/17 12:00 Urine Nitrate Negative (NEGATIVE) 06/27/17 12:00 Urine Bilirubin Negative (NEGATIVE) 06/27/17 12:00 Urine Urobilinogen 2.0 mg/dL (0.2-1.0) H 06/27/17 12:00 Ur Leukocyte Esterase 1+ Maverick/uL (Negative) H 06/27/17 12:00 Urine WBC (Auto) 8 /hpf (0-5) H 06/27/17 12:00 Urine RBC (Auto) 6 /hpf (0-3) H 06/27/17 12:00 Ur Squamous Epith Cells 8 /hpf (0-5) H 06/27/17 12:00 Ur Transition Epith Cell < 1 /hpf (0-3) 06/15/17 23:37 Urine Bacteria Rare (<OCC) 06/27/17 12:00 Urine Osmolality 634 mosm/kg (300-1000) 06/16/17 07:07 Ur Random Sodium 45 mmol/L 06/16/17 07:07 Urine Chloride 52 mmol/L (32-290) 06/16/17 07:07 Stool Occult Blood Positive (NEGATIVE) H 06/24/17 21:11 Thyroperoxidase Ab 1 IU/mL (<9) 07/01/17 07:27 C. difficile Ag & Toxin Negative (NEGATIVE) 07/02/17 03:22 Hepatitis A IgM Ab Negative (NEGATIVE) 06/16/17 06:34 Hep Bs Antigen Negative (NEGATIVE) 06/16/17 06:34 Hep B Core IgM Ab Negative (NEGATIVE) 06/16/17 06:34 Hepatitis C Antibody Negative (NEGATIVE) 06/16/17 06:34 HIV 1&2 Antibody Screen Negative (NEGATIVE) 06/16/17 06:34 Influenza Typ A,B (EIA) Negative for flu a/b (NEGATIVE) 06/27/17 11:01 Influenza Type A Ab 1:16 titer (<1:8) H 06/27/17 13:00 Influenza Type B Ab <1:8 titer (<1:8) 06/27/17 13:00 TB Test (QFT) Nil 0.34 IU/mL 06/25/17 10:15 TB Test Mitogen - Nil 0.27 IU/mL 06/25/17 10:15 TB Test TB - Nil 0.02 IU/mL 06/25/17 10:15 TB Test (QFT) Indeterminate (Negative) H 06/25/17 10:15 Blood Type O POSITIVE 07/02/17 03:14 Antibody Screen Negative 07/02/17 03:14 Antibody Identification Anti E 06/24/17 17:24 Tx React Basic Work-up Compatible (COMPATIBLE) 06/26/17 10:22 Clerical Work Check No discrepancy 06/26/17 10:22 Pre-Trans Blood Type O POSITIVE 06/26/17 10:22 Pre-Trans Vis Hemolysis No hemolysis 06/26/17 10:22 Pre-Tx Ab Screen (Gel) Negative 06/26/17 10:22 Post-Trans Blood Type O POSITIVE 06/26/17 10:22 Post-Tx Visible Hemolys No hemolysis 06/26/17 10:22 Post-Tx Ab Screen (Gel) Negative 06/26/17 10:22 Post-Trans KENNETH Poly Negative (NEGATIVE) 06/26/17 10:22 Pathologist Comment BBK See note 06/26/17 10:22 - Hospital Course Hospital Course: Pt admitted for prob pneumonia and sepsis. patient was seen c/o ID, Hematology, Renal and Cardiology services. Pt given antibiotic and redevop diarrhea and C diff infection.P.o. Vanco was added and she improve. In robbins she develop Atrial fibrillation and mild (+) hemo-occult stool. Also hgb decrease and require transfusion w/ hematology. She also develop anasarca with her hyponatremia. Patient had repeated episode of low BP and shortness of breath, she was transferred to ICU. Despite aggressive supportive care patient succumb. Discharge Exam - Head Exam Head Exam: NORMOCEPHALIC Discharge Plan - Follow Up Plan Condition: STABLE Disposition: WITH WITHOUT AUTOPSY Instructions: Ulcerative Colitis (DC), Ulcerative Colitis (GEN)
== END 2017-07-08 17:58 | DRG 871 ==
LOC: C.ER 12:07 → C.9E 14:42 → C.6T 15:11 → OBSVTOIN 06-16 10:32 → C.6T 06-18 22:43 → C.5S 06-19 09:05 → C.9I 06-30 18:00
PROVIDERS: ADMIT Internal Medicine; ATTEND Internal Medicine
PROC: 30233N1 Transfusion of Nonautologous Red Blood Cells into Peripheral Vein, Percutaneous Approach (ICD-10-PCS; 2017-06-24)
PROC: 02HV33Z Insertion of Infusion Device into Superior Vena Cava, Percutaneous Approach (ICD-10-PCS; 2017-07-01)
PROC: B548ZZA Ultrasonography of Superior Vena Cava, Guidance (ICD-10-PCS; 2017-07-01)
PROC: 5A1945Z Respiratory Ventilation, 24-96 Consecutive Hours (ICD-10-PCS; principal; 2017-07-08)
PROC: 0BH17EZ Insertion of Endotracheal Airway into Trachea, Via Natural or Artificial Opening (ICD-10-PCS; 2017-07-08)
DX: A41.9 Sepsis, unspecified organism (principal); R65.21 Severe sepsis with septic shock; I26.99 Other pulmonary embolism without acute cor pulmonale; J96.90 Respiratory failure, unspecified, unspecified whether with hypoxia or hypercapnia; A04.71 Enterocolitis due to Clostridium difficile, recurrent; I11.0 Hypertensive heart disease with heart failure; E87.5 Hyperkalemia; J18.9 Pneumonia, unspecified organism; K92.2 Gastrointestinal hemorrhage, unspecified; I50.30 Unspecified diastolic (congestive) heart failure; E22.2 Syndrome of inappropriate secretion of antidiuretic hormone; I24.0 Acute coronary thrombosis not resulting in myocardial infarction; R18.8 Other ascites; J44.0 Chronic obstructive pulmonary disease with (acute) lower respiratory infection; J98.11 Atelectasis; N39.0 Urinary tract infection, site not specified; J44.1 Chronic obstructive pulmonary disease with (acute) exacerbation; E86.0 Dehydration; I48.0 Paroxysmal atrial fibrillation; D46.9 Myelodysplastic syndrome, unspecified; I48.2 Chronic atrial fibrillation; D63.8 Anemia in other chronic diseases classified elsewhere; E11.9 Type 2 diabetes mellitus without complications; I25.2 Old myocardial infarction; E05.90 Thyrotoxicosis, unspecified without thyrotoxic crisis or storm; E06.3 Autoimmune thyroiditis; E07.81 Sick-euthyroid syndrome; E78.00 Pure hypercholesterolemia, unspecified; E87.6 Hypokalemia; K74.60 Unspecified cirrhosis of liver; R62.7 Adult failure to thrive; T38.0X5A Adverse effect of glucocorticoids and synthetic analogues, initial encounter; T50.2X5A Adverse effect of carbonic-anhydrase inhibitors, benzothiadiazides and other diuretics, initial encounter; Z51.5 Encounter for palliative care; R50.84 Febrile nonhemolytic transfusion reaction; Z66 Do not resuscitate; Z87.01 Personal history of pneumonia (recurrent); Z95.0 Presence of cardiac pacemaker; I49.01 Ventricular fibrillation; Z86.711 Personal history of pulmonary embolism